=== PATIENT | female | born 1955 | race Caucasian/White ===

== ENCOUNTER 2016-09-14 14:33 | Inpatient (IN) | payer MEDICARE ==
[2016-09-14] MEDS ORDERED: HYDROcodone/APAP 7.5-325MG 1 EACH TAB PO PRN ×2 (15:55→17:43)
[2016-09-14 16:46] LABS: Glucose,Whole Blood 96 mg/dL (75-99)
--- NOTE | 2016-09-14 16:57 | XR ---
EXAMINATION TYPE: XR chest 2V DATE OF EXAM: 09/14/2016 4:23 PM COMPARISON: 07/14/2014 INDICATION: COPD rule out pneumonia TECHNIQUE: Single frontal view of the chest is obtained. FINDINGS: The heart size is normal. The pulmonary vasculature is normal. No suspicious infiltrates are evident. IMPRESSION: 1. No acute pulmonary process.
[2016-09-14] MEDS: INSULIN LISPRO (humaLOG) 300 UNIT/3 ML VIAL SQ SCH ×2 (16:59→21:33)
[2016-09-14] MEDS: SODIUM CHLORIDE 0.9% 1,000 ML IV SCH (17:02)
[2016-09-14] MEDS: HEPARIN SODIUM,PORCINE 5,000 UNIT/ML 1 ML VIAL SQ SCH ×2 (17:16→23:42)
[2016-09-14] MEDS: methylPREDNISolone SOD SUCCI 125 MG/2 ML VIAL IV SCH ×2 (17:16→23:41)
[2016-09-14] MEDS ORDERED: ALBUTEROL NEBULIZED 2.5 MG/3 ML INHALATION PRN (17:43)
[2016-09-14 18:29] LABS: Aty Lym Flag Moderate; CH 32.6; HCT 44.9 % (34.0-46.0); HDW 2.42; HGB 14.8 gm/dL (11.4-16.0); MCH 31.9 pg (25.0-35.0); MCHC 33.1 g/dL (31.0-37.0); MCV 96.6 fL (80.0-100.0); Mean Platelet Volume 7.3; RBC 4.65 m/uL (3.80-5.40); RDW 13.5 % (11.5-15.5); WBC 6.9 k/uL (3.8-10.6); WBC (Perox) 6.86
[2016-09-14] MEDS: ASPIRIN 81 MG CHEW PO SCH (18:39)
[2016-09-14 18:54] LABS: ALT 35 U/L (9-52); AST 33 U/L (14-36); Alkaline Phosphatase 108 U/L (38-126); Anion Gap 12 mmol/L; Blood Urea Nitrogen 15 mg/dL (7-17); Calcium 9.4 mg/dL (8.4-10.2); Carbon Dioxide 25 mmol/L (22-30); Chloride 101 mmol/L (98-107); Glucose 101 mg/dL (74-99); Non-African American GFR(MDRD) >60 (>60 ml/min/1.73 sqM); Potassium 3.6 mmol/L (3.5-5.1); Sodium 138 mmol/L (137-145); Total Bilirubin 0.7 mg/dL (0.2-1.3); Total Protein 7.5 g/dL (6.3-8.2)
[2016-09-14 19:16] LABS: Add Differential Manual Differential
[2016-09-14 19:18] LABS: Nucleated Red Blood Cells 0 /100 WBC (0-0); Total Cells Counted 100
[2016-09-14 19:20] LABS: Manual Review Performed
[2016-09-14 20:59] LABS: Hemoglobin A1C 6.2 % (4.2-6.1)
[2016-09-14] MEDS: IPRATROPIUM-ALBUTEROL 3 ML NEB INHALATION SCH ×2 (21:11→21:12)
[2016-09-14] MEDS: BUDESONIDE 0.5 MG/2 ML NEBU INHALATION SCH (21:12)
[2016-09-14 21:32] LABS: Glucose,Whole Blood 190 mg/dL (75-99)
[2016-09-14] MEDS: IBUPROFEN 800 MG TAB PO PRN (21:32)
[2016-09-14] MEDS: MONTELUKAST 10 MG TAB PO SCH (21:32)
[2016-09-14] MEDS: clonazePAM 1 MG TAB PO SCH (21:32)
[2016-09-14] MEDS: ATORVASTATIN 40 MG TAB PO SCH (21:32)
[2016-09-14] MEDS: FAMOTIDINE 20 MG TAB PO SCH (21:32)
--- NOTE | 2016-09-14 22:10 | CONS ---
DATE OF CONSULTATION: Gianna Manning is a 60-year-old female who comes in to [facility] with increasing shortness of breath with cough and wheezing for two weeks' duration. She was treated with antibiotics and steroids as an outpatient but failed to improve and started to get worse. She subsequently came in and was admitted for further evaluation. PAST MEDICAL HISTORY: Positive for coronary artery disease for which she has recently had two stents placed, history of obesity, history of hypertension, history of asthma, history of COPD, history of anxiety. FAMILY HISTORY: Positive for congestive heart failure in her mother, cancer. It is not clear what kind in her father. SOCIAL HISTORY: The patient used to smoke cigarettes. He quit smoking 8 years ago. She smoked about 1 to 2 packs of cigarettes per day. 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 She does not drink alcohol excessively. SHE IS ALLERGIC TO ACETAMINOPHEN AND HYDROCODONE BITARTRATE AND PROPOXYPHENE NAPSYLATE. REVIEW OF SYSTEMS: Positive for obesity. The patient has a history of loud snoring and wakes up gasping for air. She has not been checked for sleep apnea in the past. Medications prior to admission were: 1. Clonazepam. 2. Amlodipine. 3. Simvastatin. 4. K-Dur. 5. Omeprazole. 6. Singulair. 7. ( ). 8. Motrin. 9. Hydrocodone with acetaminophen. 10. Plavix. 11. Calcium carbonate with vitamin D3. 12. Atenolol with Chlorthalidone. 13. Aspirin. 14. Albuterol. 15. Ventolin. On physical examination, blood pressure is 142/86, respiratory rate 20, pulse of 72, temperature 97.7 degrees Fahrenheit. O2 sat on room air is 97%. HEENT reveals pupils that are equal. Chest reveals decreased breath sounds, prolonged expiration. There is wheeze on forced expiration. Cardiovascular system reveals an S1, S2. ABDOMEN: Soft. There is trace pedal edema. Labs reveal a white count of 6.9, hemoglobin 14.8, eosinophil count is 0.2 thousand. Sodium 138, potassium 3.6, chloride 101, bicarb 25, BUN 15, creatinine 0.93. Influenza A and B are negative. Chest x-ray shows no discrete infiltrate. IMPRESSION: 1. Asthma with chronic obstructive pulmonary disease with acute exacerbation. 2. Undiagnosed obstructive sleep apnea is likely. 3. Coronary artery disease. 4. Possible early cor pulmonale. At this point in time, from a pulmonary standpoint, keep her on IV steroids, bronchodilators, aerosolized steroids and Montelukast. GI and DVT prophylaxis. Continue on her cardiac medications. Increase her activity level. She would benefit from an outpatient sleep study. Depending on how she does, we shall make further changes to her care
[2016-09-15] MEDS: IPRATROPIUM-ALBUTEROL 3 ML NEB INHALATION SCH ×7 (03:06→23:37)
[2016-09-15] MEDS: SODIUM CHLORIDE 0.9% 1,000 ML IV SCH ×2 (05:18→17:43)
[2016-09-15] MEDS: methylPREDNISolone SOD SUCCI 125 MG/2 ML VIAL IV SCH (06:07)
[2016-09-15 07:11] LABS: Glucose,Whole Blood 254 mg/dL (75-99)
[2016-09-15] MEDS: BUDESONIDE 0.5 MG/2 ML NEBU INHALATION SCH ×2 (07:19→20:37)
[2016-09-15] MEDS: IBUPROFEN 800 MG TAB PO PRN ×2 (07:20→20:11)
[2016-09-15] MEDS: POTASSIUM CHLORIDE ER 10 MEQ TAB.ER.PRT PO SCH (07:46)
[2016-09-15] MEDS: FAMOTIDINE 20 MG TAB PO SCH (07:46)
[2016-09-15] MEDS: MONTELUKAST 10 MG TAB PO SCH ×2 (07:46→20:03)
[2016-09-15] MEDS: clonazePAM 1 MG TAB PO SCH ×3 (07:47→20:11)
[2016-09-15] MEDS: CHLORTHALIDONE 25 MG TAB PO SCH (07:47)
[2016-09-15] MEDS: INSULIN LISPRO (humaLOG) 300 UNIT/3 ML VIAL SQ SCH ×4 (07:47→21:55)
[2016-09-15] MEDS: ASPIRIN 81 MG CHEW PO SCH (07:47)
[2016-09-15] MEDS: amLODIPine 5 MG TAB PO SCH (07:47)
[2016-09-15] MEDS: HEPARIN SODIUM,PORCINE 5,000 UNIT/ML 1 ML VIAL SQ SCH ×2 (07:47→15:54)
[2016-09-15] MEDS: CLOPIDOGREL 75 MG TAB PO SCH (07:47)
[2016-09-15] MEDS: ATENOLOL 50 MG TAB PO SCH (07:47)
[2016-09-15] MEDS: PANTOPRAZOLE 40 MG TABLET PO SCH (07:47)
[2016-09-15 09:52] LABS: Basophils % (A) 0 %; CH 32.4; CHCM 33.4; Eosinophils % (A) 0 %; HCT 43.5 % (34.0-46.0); HDW 2.34; HGB 13.8 gm/dL (11.4-16.0); Luc # (Auto) 0.06; Luc % (Auto) 1; Lymphocytes # (A) 0.5 k/uL (1.0-4.8); Lymphocytes % (A) 5 %; MCH 31.1 pg (25.0-35.0); MCHC 31.8 g/dL (31.0-37.0); MCV 97.6 fL (80.0-100.0); Mean Platelet Volume 6.9; Monocytes # (A) 0.1 k/uL (0-1.0); Monocytes % (A) 1 %; Neutrophils # (A) 9.6 k/uL (1.3-7.7); Neutrophils % (A) 93 %; RBC 4.45 m/uL (3.80-5.40); RDW 13.4 % (11.5-15.5); WBC 10.3 k/uL (3.8-10.6); WBC (Perox) 10.85
[2016-09-15 10:18] LABS: ALT 27 U/L (9-52); AST 25 U/L (14-36); Alkaline Phosphatase 95 U/L (38-126); Anion Gap 18 mmol/L; Blood Urea Nitrogen 15 mg/dL (7-17); Calcium 9.3 mg/dL (8.4-10.2); Carbon Dioxide 19 mmol/L (22-30); Chloride 98 mmol/L (98-107); Glucose 298 mg/dL (74-99); Non-African American GFR(MDRD) >60 (>60 ml/min/1.73 sqM); Potassium 3.6 mmol/L (3.5-5.1); Sodium 135 mmol/L (137-145); Total Bilirubin 0.6 mg/dL (0.2-1.3); Total Protein 7.5 g/dL (6.3-8.2)
--- NOTE | 2016-09-15 11:21 | P.PN ---
Subjective Principal diagnosis: Acute exacerbation of COPD Patient seen and examined with her at bedside. The patient states she' s feeling a little bit better today. Although she notes she had a rough night. She states that she wheezes when she lays flat. She also has a lot of congestion that she can't cough up. She denies fevers and chills. Objective - Vital Signs Vital signs: Vital Signs Temp 97.1 F L 09/15/16 07:00 Pulse 88 09/15/16 07:30 Resp 18 09/15/16 07:00 BP 127/71 09/15/16 07:00 Pulse Ox 95 09/15/16 07:00 Intake & Output 09/14/16 09/15/16 09/15/16 18:59 06:59 18:59 Weight 79.7 kg Other: Voiding Method Toilet Toilet # Voids 1 1 - Exam Gen.: Patient is alert and oriented 3, no acute distress, morbidly obese Cardiovascular: Regular rate and rhythm, S1/S2 Lungs: Diminished breath sounds bilaterally Abdomen: Soft nontender nondistended positive bowel sounds Extremities: Trace edema - Labs CBC & Chem 7: 09/15/16 09:00 09/15/16 09:00 Labs: Abnormal Lab Results - Last 24 Hours (Table) 09/14/16 09/14/16 09/14/16 Range/Units 17:36 17:36 21:18 Neutrophils # (1.3-7.7) k/uL Lymphocytes # (1.0-4.8) k/uL Sodium (137-145) mmol/L Carbon Dioxide (22-30) mmol/L Glucose 101 H (74-99) mg/dL POC Glucose (mg/dL) 190 H (75-99) mg/dL Hemoglobin A1c 6.2 H (4.2-6.1) % 09/15/16 09/15/16 09/15/16 Range/Units 07:02 09:00 09:00 Neutrophils # 9.6 H (1.3-7.7) k/uL Lymphocytes # 0.5 L (1.0-4.8) k/uL Sodium 135 L (137-145) mmol/L Carbon Dioxide 19 L (22-30) mmol/L Glucose 298 H (74-99) mg/dL POC Glucose (mg/dL) 254 H (75-99) mg/dL Hemoglobin A1c (4.2-6.1) % Assessment and Plan Plan: Acute exacerbation of COPD and possible asthma, unknown type Acute on Chronic bronchitis Morbid obesity with likely underlying obstructive sleep apnea History of coronary artery disease Possible early cor pulmonale Mild hyponatremia Hyperglycemia Diabetes mellitus type 2 O2 to maintain saturation greater than equal to 88% Pulmicort Bronchodilators Singulair GI and DVT prophylaxis Steroid taper - aggressive taper due to patient request. Patient having side effects of anxiety and jittery feeling. Antibiotics: And doxycycline We will check IgE, HP panel Continued smoking cessation Will add Mucinex Recommend outpatient follow-up with PFT and PSG Incentive spirometry and pulmonary hygiene
[2016-09-15 11:46] LABS: Glucose,Whole Blood 359 mg/dL (75-99)
[2016-09-15 11:50] VITALS: BMI 35.4
--- NOTE | 2016-09-15 14:50 | P.PN ---
Subjective This is a 60-year-old female who was a direct admission from Dr. Torres's office on the september. Patient states she is being seen in the office because she felt short of breath. Patient states that she feels better breathing is less symptomatic. Patient states the steroids are causing her to feel overly anxious "I cannot tolerate how they make me feel" patient's asking that steroids be stopped. Patients being followed by pulmonology service recommendations noted appreciated and reviewed Objective - Vital Signs Vital signs: Vital Signs Temp 97.1 F L 09/15/16 07:00 Pulse 88 09/15/16 12:06 Resp 18 09/15/16 07:00 BP 127/71 09/15/16 07:00 Pulse Ox 95 09/15/16 07:00 Intake & Output 09/14/16 09/15/16 09/15/16 18:59 06:59 18:59 Intake Total 240 Balance 240 Weight 79.7 kg 79.7 kg Intake: Oral 240 Other: Voiding Method Toilet Toilet # Voids 1 1 3 - Exam Physical exam 60-year-old female sitting up in bed talkative states breathing feels improved Lungs posterior diminished at the bases. A few prolonged expiratory wheezing noted no cough noted Heart S1-S2 audible regular Abdomen soft nontender Extremities no edema - Labs CBC & Chem 7: 09/15/16 09:00 09/15/16 09:00 Labs: Abnormal Lab Results - Last 24 Hours (Table) 09/14/16 09/14/16 09/14/16 Range/Units 17:36 17:36 21:18 Neutrophils # (1.3-7.7) k/uL Lymphocytes # (1.0-4.8) k/uL Sodium (137-145) mmol/L Carbon Dioxide (22-30) mmol/L Glucose 101 H (74-99) mg/dL POC Glucose (mg/dL) 190 H (75-99) mg/dL Hemoglobin A1c 6.2 H (4.2-6.1) % 09/15/16 09/15/16 09/15/16 Range/Units 07:02 09:00 09:00 Neutrophils # 9.6 H (1.3-7.7) k/uL Lymphocytes # 0.5 L (1.0-4.8) k/uL Sodium 135 L (137-145) mmol/L Carbon Dioxide 19 L (22-30) mmol/L Glucose 298 H (74-99) mg/dL POC Glucose (mg/dL) 254 H (75-99) mg/dL Hemoglobin A1c (4.2-6.1) % 09/15/16 Range/Units 11:36 Neutrophils # (1.3-7.7) k/uL Lymphocytes # (1.0-4.8) k/uL Sodium (137-145) mmol/L Carbon Dioxide (22-30) mmol/L Glucose (74-99) mg/dL POC Glucose (mg/dL) 359 H (75-99) mg/dL Hemoglobin A1c (4.2-6.1) % Assessment and Plan Plan: Impression Present on admission shortness of breath due to an acute exacerbation of COPD with asthma likely unknown type Acute on chronic bronchitis Morbid obesity BMI 35 with likely on diagnosed obstructive sleep apnea Mild hyponatremia Type 2 diabetes him Globe an A1c 6 Hyperglycemic episodes suspect steroid-induced Possible early cor pulmonale Plan Continue recommendations by pulmonology service Address hyperglycemic episodes with sliding scale Continue respiratory treatments as ordered Resume home meds as appropriate Possible discharge in the next 24 hours The above dictated assessment and findings were discussed with dr torres Impression and the plan of care have been dictated as directed. Janelle Jones nurse practitioner acting as a scribe for dr torres.
[2016-09-15 17:55] LABS: Glucose,Whole Blood 331 mg/dL (75-99)
[2016-09-15] MEDS: DOXYCYCLINE 50 MG CAP PO SCH (19:59)
[2016-09-15] MEDS: guaiFENesin-DM 600/30MG 1 EACH TAB.ER.12H PO SCH (19:59)
[2016-09-15] MEDS: ATORVASTATIN 40 MG TAB PO SCH (20:00)
[2016-09-15 20:57] LABS: Glucose,Whole Blood 236 mg/dL (75-99)
[2016-09-15] MEDS ORDERED: methylPREDNISolone SOD SUCCI 40 MG/ML 1 ML VIAL IV SCH (21:00)
[2016-09-16] MEDS: HEPARIN SODIUM,PORCINE 5,000 UNIT/ML 1 ML VIAL SQ SCH ×3 (00:35→08:10)
[2016-09-16 00:54] VITALS: RESP 20
[2016-09-16] MEDS: IPRATROPIUM-ALBUTEROL 3 ML NEB INHALATION SCH ×2 (05:55→07:34)
[2016-09-16] MEDS: BUDESONIDE 0.5 MG/2 ML NEBU INHALATION SCH (07:34)
[2016-09-16 07:53] LABS: Glucose,Whole Blood 154 mg/dL (75-99)
[2016-09-16] MEDS: INSULIN LISPRO (humaLOG) 300 UNIT/3 ML VIAL SQ SCH (08:09)
[2016-09-16] MEDS: ASPIRIN 81 MG CHEW PO SCH (08:10)
[2016-09-16] MEDS: ATENOLOL 50 MG TAB PO SCH (08:10)
[2016-09-16] MEDS: amLODIPine 5 MG TAB PO SCH (08:10)
[2016-09-16] MEDS: PANTOPRAZOLE 40 MG TABLET PO SCH (08:10)
[2016-09-16] MEDS: CHLORTHALIDONE 25 MG TAB PO SCH (08:10)
[2016-09-16 08:11] VITALS: BP 129/70; PULSE 72; TEMP 97.2
[2016-09-16] MEDS: CLOPIDOGREL 75 MG TAB PO SCH (08:11)
[2016-09-16] MEDS: MONTELUKAST 10 MG TAB PO SCH (08:11)
[2016-09-16] MEDS: POTASSIUM CHLORIDE ER 10 MEQ TAB.ER.PRT PO SCH (08:11)
[2016-09-16] MEDS: DOXYCYCLINE 50 MG CAP PO SCH (08:11)
[2016-09-16] MEDS: guaiFENesin-DM 600/30MG 1 EACH TAB.ER.12H PO SCH (08:11)
[2016-09-16] MEDS: clonazePAM 1 MG TAB PO SCH (08:16)
[2016-09-16] MEDS ORDERED: FAMOTIDINE 20 MG TAB PO SCH (09:00)
[2016-09-16] MEDS ORDERED: predniSONE 20 MG TAB PO SCH (09:00)
[2016-09-16] MEDS: NON-FORMULARY DRUG (Linaclotide [Linzess] 145 MCG) PO SCH ×2 (09:51→09:57)
--- NOTE | 2016-09-16 12:16 | PN ---
DATE OF SERVICE: 09/16/2016 HISTORY OF PRESENT ILLNESS: The patient is a 60-year-old female who came in with increased difficulty with breathing and coughing that had been going on for a few weeks. She failed outpatient therapy with antibiotics and steroids and subsequently was admitted with acute exacerbation of asthma with COPD. On examination, she is also felt to possibly have problems with obstructive sleep apnea. Her states that she does snore. She feels tired frequently. Her neck is short and thick and she does have a Mallampati score of 3 to 4. She also has a significant history of coronary artery disease with possible early cor pulmonale. She states that she did quit smoking 8 years ago, which she is quite proud of. She is doing well today. Plans are for her to be discharged. She has had no nausea, vomiting, diarrhea, or chest pain or productive cough at this time. She still has a few wheezes with prolonged expiration. It is recommended that she have sleep study on an outpatient basis and she would benefit from having PFT in the office. This has been discussed with the patient. She is in agreeance and her care was discussed in detail. On physical examination, vital signs show temperature of 97.2, heart rate 80, respiratory rate 20, blood pressure is 129/70, oxygen saturation is 98%. Labs show a glucose of 154. Chest x-ray on admission showed no acute pulmonary process. GENERAL: She is a 60-year-old female who appears relatively comfortable at this time in no acute distress. HEENT: Pupils are reactive. Mucous membranes are moist. NECK: Short, supple, thick. She has a Mallampati 3 to 4. Lung sounds diminished. Few wheezes with prolonged expiration. CARDIOVASCULAR: S1 and S2 is heard, regular. ABDOMEN: Soft. Bowel sounds are heard. EXTREMITIES: With trace edema. NEUROLOGIC: She is awake, alert. IMPRESSION: 1. Acute exacerbation of chronic obstructive pulmonary disease with questionable asthma. 2. Acute on chronic bronchitis. 3. Possible obstructive sleep apnea with obesity hypoventilation syndrome. 4. Coronary artery disease. 5. Possible early cor pulmonale. 6. Hyperglycemia with diabetes mellitus type 2. 7. History of snoring. PLAN: The patient to continue with tapering steroids and nebulizer treatments as ordered. She needs to follow up with Dr. Sullivan in the office next week. She would benefit from PFT and a sleep study. She is stable. Continue to increase activity as tolerated. Will continue to follow patient with you and continue with supportive care.
[2016-09-18 12:41] LABS: Alternaria alternata IgE <0.35 kU/L (<0.35); Asperg. fumagatus IgE <0.35 kU/L (<0.35); Asperg. fumagatus IgE Class CLASS 0; Cat Epith & Dander IgE <0.35 kU/L (<0.35); Cat Epith & Dander IgE Class CLASS 0; Clad herbarum IgE <0.35 kU/L (<0.35); Clad herbarum IgE Class CLASS 0; Com. Pigweed IgE <0.35 kU/L (<0.35); Com. Pigweed IgE Class CLASS 0; Common Ragweed IgE Class CLASS 0; Cow's Milk IgE Class CLASS 0; Dermato. farinae IgE <0.35 kU/L (<0.35); Dermato. farinae IgE Class CLASS 0; House Dust (Greer) IgE <0.35 kU/L (<0.35); House Dust (Greer) IgE Class CLASS 0; Maple (Box Elder) IgE <0.35 kU/L (<0.35); Maple (Box Elder) IgE Class CLASS 0; Penicillium notatum IgE Class CLASS 0; Timothy Grass IgE <0.35 kU/L (<0.35); Timothy Grass IgE Class CLASS 0
[2016-09-20 11:18] LABS: Mis test requested (Blood) HYPERSEN PNEUMONITIS
--- NOTE | 2016-10-09 18:50 | DS ---
DATE OF ADMISSION: 09/14/2016 DATE OF DISCHARGE: 09/16/2016 DISCHARGE MEDICATIONS: 1. Clonazepam 1 mg t.i.d. 2. Simvastatin 80 mg daily. 3. Omeprazole 40 mg daily. 4. Aspirin 81 daily. 5. Singulair 10 mg daily. 6. Atenolol (Tenoretic) 50 one daily. 7. Albuterol updrafts q.6. 8. Linzess 145 daily. 9. Ventolin HFA 1 puff daily. 10. Calcium carbonate daily. 11. Norvasc 5 mg daily. 12. Motrin 800 mg q.6 hours. 13. Plavix 75 mg daily. 14. Potassium chloride 10 mEq daily. 15. Hydrocodone/APAP 7.5/325 every 4 hours p.r.n. 16. DuoNeb updrafts q.i.d. CONDITION: Stable. PROGNOSIS: Guarded. Ambulate as tolerated. HOSPITAL COURSE OF EVENTS: [id number]-old white female admitted to the hospital for shortness of breath, cough, congestion, wheezing for 2 weeks' duration, treated with IV steroids and IV antibiotics and updraft treatments. Patient slowly improved with pulmonary consult. As her ( ) improved, she was seen by computer systems security administrator, who helped with the care of the patient. Patient was stabilized and sent home in stable condition.
== END 2016-09-16 11:22 | disposition home or self-care (01) | DRG 191 ==
LOC: 4MS4W 14:46
PROVIDERS: ADMIT Family Medicine; ATTEND Family Medicine
DX: J44.1 Chronic obstructive pulmonary disease with (acute) exacerbation (principal); E87.1 Hypo-osmolality and hyponatremia; I27.81 Cor pulmonale (chronic); E11.65 Type 2 diabetes mellitus with hyperglycemia; J45.901 Unspecified asthma with (acute) exacerbation; E66.2 Morbid (severe) obesity with alveolar hypoventilation; I10 Essential (primary) hypertension; I25.10 Atherosclerotic heart disease of native coronary artery without angina pectoris; F41.9 Anxiety disorder, unspecified; T38.0X5A Adverse effect of glucocorticoids and synthetic analogues, initial encounter; R06.83 Snoring; J20.9 Acute bronchitis, unspecified; J44.0 Chronic obstructive pulmonary disease with (acute) lower respiratory infection; Z79.02 Long term (current) use of antithrombotics/antiplatelets; Z79.82 Long term (current) use of aspirin; Z88.6 Allergy status to analgesic agent; Z87.891 Personal history of nicotine dependence; Z68.35 Body mass index [BMI] 35.0-35.9, adult; Z82.49 Family history of ischemic heart disease and other diseases of the circulatory system; Z80.9 Family history of malignant neoplasm, unspecified; Z71.3 Dietary counseling and surveillance; Z95.5 Presence of coronary angioplasty implant and graft; Z79.1 Long term (current) use of non-steroidal anti-inflammatories (NSAID); Z79.891 Long term (current) use of opiate analgesic; Z79.899 Other long term (current) drug therapy
CPT/HCPCS: 71020; 80053; 82785; 83036; 85025; 85379; 86001; 86003; 86606; 86609; 86710; 87502; 94640; 94760

== ENCOUNTER → 2016-12-18 | Outpatient (CLI) | payer MEDICARE ==
[~2016-12-18] MED LIST: REGADENOSON 0.4 MG/5 ML SYRINGE IV ONE
--- NOTE | 2016-12-18 11:42 | NM ---
EXAMINATION TYPE: NM stress lexiscan cardiolite DATE OF EXAM: 12/18/2016 COMPARISON: Chest x-ray 09/14/2016 HISTORY: Abnormal EKG, R 94.31 TECHNIQUE: After the intravenous administration of 10.48 mCi Tc 99m Sestamibi - Cardiolite resting S PECT images acquired 45 minutes post injection. The patient received 0.4mg Lexiscan, 26.8 mCi Tc 99m Sestamibi - Stress images obtained [address] injection FINDINGS: Review of stress and rest SPECT images demonstrates decreased uptake along the anterolateral wall the left ventricle on stress and rest images. Some mild decreased uptake along noted along the anterolat eral wall of the left ventricle on stress as compared to rest images. Gated analysis shows normal wal l motion with an estimated left ventricular ejection fraction of 63 %. IMPRESSION: Findings suggest possible prior infarct along the anterolateral left ventricle, I suspect some pharma cologically induced left ventricular myocardial ischemia as described. A Yellow message has been communicated to Gregorio Garber MD via the [employer] Critical Result system on 12/18/2016 11:40 AM, Message ID [id number].
--- NOTE | 2016-12-18 16:20 | EST ---
DATE OF SERVICE: 12/18/2016 AGE: 61Y SEX: F HT: 4'11" WT: 176 lbs. Protocol Asad: Other: Lexiscan Cardiolite Stage: Dur. of Exercise: *Heart Rate Blood Pressure *Rest: 65 Rest: 144/71 * *Max. Achieved: 83 Maximum BP: 132/86 85% PMHR: 134 100% PMHR: 158 *METS: INDICATIONS: Abnormal EKG, shortness of breath. MEDICATIONS: Clonazepam, atenolol, amlodipine, potassium, Plavix, aspirin, simvastatin, [place], Motrin. Patient was given Lexiscan injection over a period of 15 seconds. Peak heart rate of 83 was achieved. Maximum blood pressure 132/86 mmHg was noted. Resting EKG shows normal sinus rhythm with normal DE interval and QRS duration and normal ST-T waves. No ST-segment depression suggestive of ischemia is noted. The results of the nuclear study will follow.
== END | disposition home or self-care (01) ==
LOC: RADNMMAIN 07:50
PROVIDERS: ATTEND Family Medicine
DX: R94.31 Abnormal electrocardiogram [ECG] [EKG] (principal)
CPT/HCPCS: 93017; 78452; A9500; J2785

== ENCOUNTER → 2017-01-10 | Outpatient (CLI) | payer MEDICARE ==
[2017-01-10 15:52] LABS: Basophils % (A) 0 %; CH 32.1; CHCM 35.1; Eosinophils # (A) 0.1 k/uL (0-0.7); Eosinophils % (A) 2 %; HCT 43.4 % (34.0-46.0); HDW 2.58; HGB 15.4 gm/dL (11.4-16.0); Luc # (Auto) 0.26; Luc % (Auto) 3; Lymphocytes # (A) 0.9 k/uL (1.0-4.8); Lymphocytes % (A) 10 %; MCH 32.5 pg (25.0-35.0); MCHC 35.4 g/dL (31.0-37.0); MCV 91.8 fL (80.0-100.0); Mean Platelet Volume 6.6; Monocytes # (A) 0.6 k/uL (0-1.0); Monocytes % (A) 6 %; Neutrophils # (A) 7.7 k/uL (1.3-7.7); Neutrophils % (A) 80 %; RBC 4.73 m/uL (3.80-5.40); RDW 13.9 % (11.5-15.5); WBC 9.6 k/uL (3.8-10.6); WBC (Perox) 10.33
[2017-01-10 16:13] LABS: Anion Gap 14 mmol/L; Blood Urea Nitrogen 13 mg/dL (7-17); Carbon Dioxide 28 mmol/L (22-30); Chloride 99 mmol/L (98-107); Non-African American GFR(MDRD) >60 (>60 ml/min/1.73 sqM); Potassium 3.3 mmol/L (3.5-5.1); Sodium 141 mmol/L (137-145)
== END | disposition home or self-care (01) ==
LOC: LABPAT 15:30
PROVIDERS: ATTEND Internal Medicine Cardiovascular Disease
DX: Z01.812 Encounter for preprocedural laboratory examination (principal); E78.2 Mixed hyperlipidemia; I25.10 Atherosclerotic heart disease of native coronary artery without angina pectoris
CPT/HCPCS: 36415; 80051; 82565; 84520; 85025

== ENCOUNTER 2017-01-11 09:17 | Day surgery (SDC) | payer MEDICARE ==
[2017-01-10 10:16] VITALS: BMI 31.5
[~2017-01-11 09:17] MED LIST changes: +ALPRAZolam 0.25 MG TAB PO PRN; +ALPRAZolam 0.5 MG TAB PO PRN; +ASPIRIN 325 MG TAB PO STA; +ATORVASTATIN 80 MG TAB PO STA; +NITROGLYCERIN SL TABS 0.4 MG TAB SUBLINGUAL PRN; -REGADENOSON 0.4 MG/5 ML SYRINGE IV ONE; +SODIUM CHLORIDE 0.9% 1,000 ML in EMPTY BAG 1 BAG IV ONE
[2017-01-11 09:39] VITALS: RESP 16
[2017-01-11] MEDS ORDERED: SODIUM CHLORIDE 0.9% 1,000 ML IV ONE (09:45)
[2017-01-11 09:53] LABS: Basophils % (A) 1 %; CH 32.6; CHCM 35.5; Eosinophils # (A) 0.2 k/uL (0-0.7); Eosinophils % (A) 3 %; HCT 42.8 % (34.0-46.0); HDW 2.59; HGB 14.8 gm/dL (11.4-16.0); Luc # (Auto) 0.18; Luc % (Auto) 2; Lymphocytes % (A) 12 %; MCH 31.9 pg (25.0-35.0); MCHC 34.6 g/dL (31.0-37.0); MCV 92.2 fL (80.0-100.0); Mean Platelet Volume 6.5; Monocytes # (A) 0.5 k/uL (0-1.0); Monocytes % (A) 6 %; Neutrophils # (A) 6.4 k/uL (1.3-7.7); Neutrophils % (A) 77 %; RBC 4.63 m/uL (3.80-5.40); RDW 14.3 % (11.5-15.5); WBC 8.3 k/uL (3.8-10.6); WBC (Perox) 7.65
[2017-01-11 10:02] LABS: Anion Gap 11 mmol/L; Blood Urea Nitrogen 15 mg/dL (7-17); Calcium 9.1 mg/dL (8.4-10.2); Carbon Dioxide 24 mmol/L (22-30); Chloride 103 mmol/L (98-107); Glucose 127 mg/dL (74-99); Non-African American GFR(MDRD) >60 (>60 ml/min/1.73 sqM); Potassium 3.8 mmol/L (3.5-5.1); Sodium 138 mmol/L (137-145)
[2017-01-11] MEDS: MIDAZOLAM 2 MG/2 ML VIAL IV ONE ×2 (10:26→10:31)
[2017-01-11] MEDS ORDERED: fentaNYL (PF) 50 MCG/ML 2 ML AMP IV ONE (10:26)
[2017-01-11] MEDS ORDERED: LIDOCAINE 2% INJ 20 MG/ML SQ ONE (10:29)
[2017-01-11] MEDS ORDERED: IOHEXOL 350 MG/ML 125ML BOTTLE INJ ONE (10:47)
[2017-01-11] MEDS ORDERED: RX INFO: IV CONTRAST WAS GIVEN 1 EACH MISC MISCELLANE PRN (10:58)
[2017-01-11] MEDS ORDERED: SODIUM CHLORIDE 0.9% 1,000 ML IV SCH (11:00)
[2017-01-11 11:14] VITALS: TEMP 97.8
--- NOTE | 2017-01-11 11:56 | CC ---
CARDIAC CATHETERIZATION INDICATION: Shortness of breath, abnormal stress test. PROCEDURE NOTE: After obtaining informed consent, left heart catheterization and coronary angiogram was performed via the right femoral artery using standard Sherri catheters. Patient tolerated the procedure well without any obvious immediate complications. A long exchange length wire was used to exchange catheters in the aortic root. Total sedation time was 20 minutes. A femoral angiogram was performed and ( ) was made for manual hemostasis because of the relatively high entry point into the common femoral artery. FINDINGS: 1. HEMODYNAMICS: Left ventricular end-diastolic pressure is 16 mm. There is no significant gradient across the aortic valve. 2. LEFT VENTRICULOGRAM: Left ventriculogram is not performed. 3. ANGIOGRAPHIC DATA: LEFT MAIN CORONARY ARTERY: Left main coronary artery appears heavily calcified but is free of significant stenosis. Divides into left anterior descending coronary artery and circumflex coronary artery. Both the LAD the circumflex coronary artery are relatively small caliber vessels that are calcified. There is mild nonobstructive disease involving circumflex coronary artery. LAD shows a mild to moderate atherosclerotic plaque in its midportion without focal hemodynamically significant lesions. RIGHT CORONARY ARTERY is a large dominant vessel with a long area of mild stenosis in its midportion. PDA which was previously stented. The stent appears patent. CONCLUSION: 1. Patent stent within the PDA. 2. Mild to moderate nonobstructive coronary artery disease involving right coronary artery, mid-LAD and proximal circumflex coronary artery. PLAN: I reviewed angiographic data with the patient and told her that her symptoms are probably noncardiac in origin and her management is going to be in the form of risk factor modification and optimal medical therapy. Her stress test is probably a false positive stress test. MAINOR
[2017-01-11 13:48] VITALS: PULSE 60
[2017-01-11] MEDS ORDERED: ACETAMINOPHEN TAB 325 MG TAB PO PRN (13:48)
[2017-01-11 18:32] VITALS: BP 128/70
== END 2017-01-11 18:38 | disposition home or self-care (01) ==
LOC: CATHCVL 09:17
PROVIDERS: ATTEND Internal Medicine Cardiovascular Disease
DX: I25.10 Atherosclerotic heart disease of native coronary artery without angina pectoris (principal); I25.84 Coronary atherosclerosis due to calcified coronary lesion; I10 Essential (primary) hypertension; Z87.891 Personal history of nicotine dependence; Z82.49 Family history of ischemic heart disease and other diseases of the circulatory system; E78.2 Mixed hyperlipidemia; Z79.02 Long term (current) use of antithrombotics/antiplatelets; Z79.82 Long term (current) use of aspirin; Z79.51 Long term (current) use of inhaled steroids; Z79.899 Other long term (current) drug therapy
CPT/HCPCS: 99152; 99153; 93458; 80048; 85025; C1894; C1769; J2001; J2250; J3010; Q9967

== ENCOUNTER → 2017-09-19 | Outpatient (CLI) | payer MEDICARE ==
--- NOTE | 2017-09-19 15:50 | XR ---
EXAMINATION TYPE: XR knee complete LT DATE OF EXAM: 09/19/2017 COMPARISON: NONE HISTORY: Pain TECHNIQUE: 3 views are submitted. FINDINGS: There is moderate narrowing of the medial compartment of the knee joint. No erosive changes. Mild bandar rowing of the patellofemoral joint with small amount of fluid in the suprapatellar bursa. No acute fracture or dislocation. IMPRESSION: 1. Moderate osteoarthritis with a small amount of fluid in the suprapatellar bursa. Correlate with MR I as clinically warranted.
== END | disposition home or self-care (01) ==
LOC: RADXRMAIN 14:52
PROVIDERS: ATTEND Family Medicine
DX: M17.12 Unilateral primary osteoarthritis, left knee (principal)

== ENCOUNTER → 2017-12-12 | Outpatient (CLI) | payer MEDICARE ==
[2017-12-12 15:09] LABS: Basophils % (A) 1 %; Eosinophils # (A) 0.1 k/uL (0-0.7); Eosinophils % (A) 1 %; HCT 46.1 % (34.0-46.0); HGB 15.7 gm/dL (11.4-16.0); Lymphocytes # (A) 0.9 k/uL (1.0-4.8); Lymphocytes % (A) 10 %; MCH 32.2 pg (25.0-35.0); MCHC 34.1 g/dL (31.0-37.0); MCV 94.2 fL (80.0-100.0); Mean Platelet Volume 6.3; Monocytes # (A) 0.5 k/uL (0-1.0); Monocytes % (A) 6 %; Neutrophils # (A) 7.3 k/uL (1.3-7.7); Neutrophils % (A) 81 %; Platelet Count 287 k/uL (150-450); RBC 4.89 m/uL (3.80-5.40); RDW 13.6 % (11.5-15.5)
== END | disposition home or self-care (01) ==
LOC: LABPAT 14:11
PROVIDERS: ATTEND Surgery
DX: Z01.818 Encounter for other preprocedural examination (principal); Z01.812 Encounter for preprocedural laboratory examination; K43.2 Incisional hernia without obstruction or gangrene; D64.9 Anemia, unspecified; F17.200 Nicotine dependence, unspecified, uncomplicated; I10 Essential (primary) hypertension
CPT/HCPCS: 36415; 84132; 85025; 86850; 86900; 86901; 93005

== ENCOUNTER 2017-12-18 08:08 | Day surgery (SDC) | payer MEDICARE ==
[2017-12-12 11:38] VITALS: BMI 35.3
[~2017-12-18 08:08] MED LIST changes: -ALPRAZolam 0.25 MG TAB PO PRN; -ALPRAZolam 0.5 MG TAB PO PRN; -ASPIRIN 325 MG TAB PO STA; -ATORVASTATIN 80 MG TAB PO STA; +HEPARIN SODIUM,PORCINE 5,000 UNIT/ML 1 ML VIAL SQ ONE; +HYDROmorphone 0.5 MG/0.5 ML SYRINGE IVP PRN; -NITROGLYCERIN SL TABS 0.4 MG TAB SUBLINGUAL PRN; +ONDANSETRON 4 MG/2 ML VIAL IVP PRN; -SODIUM CHLORIDE 0.9% 1,000 ML in EMPTY BAG 1 BAG IV ONE; +ceFAZolin IN SWFI 2 GM/20 ML SYRINGE IVP ONE; +fentaNYL (PF) 50 MCG/ML 2 ML AMP IV PRN
[2017-12-18] MEDS: LACTATED RINGERS 1,000 ML IV SCH ×2 (09:19→09:40)
[2017-12-18] MEDS ORDERED: LIDOCAINE 1% 20 ML VIAL (10MG/ML) FOR IV START INTRADERMA ONE (09:20)
[2017-12-18] MEDS ORDERED: ONDANSETRON 4 MG/2 ML VIAL IVP ONE (09:21)
[2017-12-18] MEDS ORDERED: DEXAMETHASONE SOD PHOSPHATE 10 MG/ML 1 ML VIAL IV ONE (09:21)
[2017-12-18 09:50] LABS: Glucose,Whole Blood 115 mg/dL (75-99)
[2017-12-18] MEDS ORDERED: MIDAZOLAM 2 MG/2 ML VIAL IVP ONE (09:57)
--- NOTE | 2017-12-18 11:37 | P.GSHP ---
History of Present Illness H&P Date: 12/18/17 Chief Complaint: Incisional hernia 's is a 62-year-old female who has developed an incisional hernia. Patient presents today for laparoscopic robotic-assisted repair. Past Medical History Past Medical History: COPD, Deep Vein Thrombosis (DVT), Fibromyalgia, GERD/ Reflux, Hyperlipidemia, Hypertension, Osteoarthritis (OA), Skin Disorder Additional Past Medical History / Comment(s): DIVERTICULITIS, HX KIDNEY STONES & Pneumonia, ROSACEA, DVT RLE 2007, History of Any Multi-Drug Resistant Organisms: None Reported Past Surgical History: Appendectomy, Bowel Resection, Heart Catheterization With Stent, Tubal Ligation Additional Past Surgical History / Comment(s): COLONOSCOPY, PARTIAL LT LOBECTOMY , D & C, 07-17-14 BOWEL RESECTION, [place] [facility] [place] Anesthesia/Blood Transfusion Reactions: No Reported Reaction Date of Last Stent Pl[place]:: [place] [facility] [place]oking Status: Former smoker - Past Family History Mother Family Medical History: Congestive Heart Failure (CHF) Father Family Medical History: Cancer Additional Family Medical History / Comment(s): TYPE OF CANCER NOT KNOWN Medications and Allergies Home Medications Medication Instructions Recorded Confirmed Type Aspirin 81 mg PO DAILY 02/20/14 12/18/17 History Atenolol/Chlorthalidone [Tenoretic 1 tab PO DAILY 02/20/14 12/12/17 History 50 Tablet] Montelukast [Singulair] 10 mg PO DAILY 02/20/14 12/18/17 History Omeprazole 40 mg PO DAILY 02/20/14 12/12/17 History clonazePAM [Clonazepam] 1 mg PO TID 02/20/14 12/12/17 History Calcium Carbonate/Vitamin D3 1 tab PO DAILY 07/14/14 12/18/17 History [Calcium 600-Vit D3 400 Tablet] Linaclotide [Linzess] 145 mcg PO DAILY PRN 07/14/14 12/18/17 History Clopidogrel [Plavix] 75 mg PO DAILY 09/14/16 12/18/17 History HYDROcodone/APAP 7.5-325MG [[place] 1 tab PO Q4H PRN 09/14/16 12/18/17 History 7.5-325] Potassium Chloride [K-Tab ER] 10 meq PO DAILY 09/14/16 12/18/17 History amLODIPine [Norvasc] 5 mg PO DAILY 09/14/16 12/18/17 History Ipratropium-Albuterol Nebulize 3 ml INHALATION QID PRN 01/10/17 12/18/17 History [Duoneb 0.5 mg-3 mg/3 ml Soln] Rosuvastatin Calcium [Crestor] 40 mg PO DAILY 01/10/17 12/18/17 History Tiotropium Br/Olodaterol HCl 1 spray INHALATION DAILY 01/10/17 12/18/17 History [Stiolto Respimat Inhal [place]] Meloxicam [Mobic] 7.5 mg PO DAILY 12/12/17 12/18/17 History metFORMIN HCL [Glucophage] 500 mg PO DAILY 12/12/17 12/18/17 History Allergies Allergy/AdvReac Type Severity Reaction Status Date / Time acetaminophen AdvReac Nausea & Verified 12/12/17 11:17 [From Darvocet-N 100] Vomiting hydrocodone bitartrate AdvReac Nausea & Verified 12/12/17 11:17 [From Vicodin] Vomiting propoxyphene napsylate AdvReac Nausea & Verified 12/12/17 11:17 [From Darvocet-N 100] Vomiting Surgical - Exam Vital Signs Temp Pulse Resp BP Pulse Ox 98.3 F 64 18 169/76 95 12/18/17 09:06 12/18/17 09:06 12/18/17 09:06 12/18/17 09:06 12/18/17 09:06 - General well developed, well nourished, no distress - Eyes PERRL - ENT normal pinna - Neck no masses - Respiratory normal expansion - Cardiovascular Rhythm: regular - Abdomen 5 cm incisional hernia located above the umbilicus Abdomen: soft, non tender Results - Labs Abnormal Lab Results - Last 24 Hours (Table) 12/18/17 Range/Units 09:34 POC Glucose (mg/dL) 115 H (75-99) mg/dL Assessment and Plan Assessment: Incisional hernia. We'll perform laparoscopic robotic-assisted repair.
[2017-12-18] MEDS ORDERED: MIDAZOLAM 2 MG/2 ML VIAL ONE (11:59)
[2017-12-18] MEDS ORDERED: SUCCINYLCHOLINE CHLORIDE 100 MG/5 ML SYR IV ONE (11:59)
[2017-12-18] MEDS ORDERED: KETOROLAC 30 MG/ML 1 ML VIAL ONE (11:59)
[2017-12-18] MEDS ORDERED: fentaNYL (PF) 50 MCG/ML 2 ML AMP ONE (11:59)
[2017-12-18] MEDS ORDERED: GLYCOPYRROLATE 0.2 MG/ML 2 ML VIAL ONE (11:59)
[2017-12-18] MEDS ORDERED: ROCURONIUM BROMIDE 10 MG/ML 10 ML VIAL IV ONE (11:59)
[2017-12-18] MEDS ORDERED: ePHEDrine SULFATE/0.9% NACL/PF 50 MG/5 ML SYRINGE IV ONE (11:59)
[2017-12-18] MEDS ORDERED: LIDOCAINE 1% INJ 10MG/ML (20 ML MDV) ONE (11:59)
[2017-12-18] MEDS ORDERED: PROPOFOL 10 MG/ML 20 ML VIAL IV ONE (11:59)
[2017-12-18] MEDS ORDERED: NEOSTIGMINE 1 MG/ML 10 ML VIAL ONE (11:59)
[2017-12-18] MEDS ORDERED: HYDROmorphone (PF) 1 MG/ML ONE (11:59)
[2017-12-18] MEDS ORDERED: LIDOCAINE 1% INJ 10MG/ML (20 ML MDV) SQ ONE (12:37)
--- NOTE | 2017-12-18 13:06 | P.OP ---
Date of Procedure: 12/18/17 Preoperative Diagnosis: Incisional hernia Postoperative Diagnosis: Incisional hernia Adhesions Procedure(s) Performed: Laparoscopic robotic-assisted repair of incisional hernia Anesthesia: RADU Surgeon: Hermes Villarreal Estimated Blood Loss (ml): 5 Pathology: none sent Condition: stable Disposition: PACU Description of Procedure: The patient was placed on the operating table in the supine position. He received general anesthesia. His abdomen was prepped and draped usual fashion. Using a 5 mm optical trocar under direct visualization the peritoneal cavity was entered in the left upper quadrant. The abdomen was then insufflated. The laparoscope was placed back into the perineal cavity. Next a 8 mm robotic trocar was placed in the left lower quadrant and a 12 mm robotic trocar was placed in the left lateral position. The original 5 mm trocar was exchanged for a 8 mm robotic trocar. The patient's placed in the left side up position. And the patient was docked to the robot. The incisional hernia was visualized. The adhesions within the hernia were lysed using the cautery. Using hook cautery the peritoneum over the incisional hernia was excised. The fascial opening was repaired using 0V LOC suture. Next a piece of 11 cm round ventral light ST mesh was placed into the. Cavity and secured with 2 OV lock suture. The patient was undocked the robot. The needles were retrieved. The fascia of the 12 mm trocar site was closed with 0 Ethibond suture. Skin was closed interrupted 3-0 Monocryl suture. Dermabond dressings was applied. Patient tolerated procedure well and was sent to recovery room stable condition.
[2017-12-18] MEDS: HYDROmorphone 1 MG/ML 1 ML SYRINGE IVP ONE ×4 (13:30→13:57)
[2017-12-18 13:35] VITALS: TEMP 972
[2017-12-18 13:37] VITALS: RESP 16
[2017-12-18 14:07] LABS: Glucose,Whole Blood 138 mg/dL (75-99)
[2017-12-18] MEDS: fentaNYL (PF) 50 MCG/ML 2 ML AMP IVP ONE ×2 (14:08→14:16)
[2017-12-18] MEDS ORDERED: IPRATROPIUM-ALBUTEROL 3 ML NEB INHALATION STA (14:53)
[2017-12-18] MEDS ORDERED: Acetaminophen-Codeine 300-30mg TAB PO ONE (15:00)
[2017-12-18 15:03] LABS: Glucose,Whole Blood 149 mg/dL (75-99)
[2017-12-18 16:35] VITALS: BP 130/65; PULSE 75
== END 2017-12-18 17:06 | disposition home or self-care (01) ==
LOC: OR 08:08
PROVIDERS: ATTEND Surgery
DX: K43.2 Incisional hernia without obstruction or gangrene (principal); M19.90 Unspecified osteoarthritis, unspecified site; M79.7 Fibromyalgia; K21.9 Gastro-esophageal reflux disease without esophagitis; J44.9 Chronic obstructive pulmonary disease, unspecified; I10 Essential (primary) hypertension; E78.5 Hyperlipidemia, unspecified; K66.0 Peritoneal adhesions (postprocedural) (postinfection); I25.10 Atherosclerotic heart disease of native coronary artery without angina pectoris; E11.9 Type 2 diabetes mellitus without complications; Z88.5 Allergy status to narcotic agent; Z87.01 Personal history of pneumonia (recurrent); Z95.5 Presence of coronary angioplasty implant and graft; Z87.891 Personal history of nicotine dependence; Z87.442 Personal history of urinary calculi; Z86.718 Personal history of other venous thrombosis and embolism; Z79.82 Long term (current) use of aspirin; Z82.49 Family history of ischemic heart disease and other diseases of the circulatory system; Z79.02 Long term (current) use of antithrombotics/antiplatelets; Z79.1 Long term (current) use of non-steroidal anti-inflammatories (NSAID); Z79.84 Long term (current) use of oral hypoglycemic drugs; Z79.891 Long term (current) use of opiate analgesic
CPT/HCPCS: 49654; 94640; C1781; J2250; J1644; J1100; J2710; J2405; J2001; J3010; J1885; J1170; J0330; J2704; J0690; 86850; 86900; 86901

== ENCOUNTER 2017-12-21 10:24 | Observation (INO) | payer MEDICARE ==
[2017-12-21] MEDS ORDERED: MORPHINE SULFATE 2 MG/ML SYRINGE IV STA (11:05)
--- NOTE | 2017-12-21 11:09 | ED ---
General Adult HPI - General Chief complaint: Recheck/Abnormal Lab/Rx Stated complaint: Multiple Symptoms/ Post op pain Time Seen by Provider: 12/21/17 10:51 Source: patient, family, RN notes reviewed Mode of arrival: wheelchair Limitations: no limitations - History of Present Illness Initial comments: Patient is a pleasant 62-year-old female presenting to the emergency department with concerns for problems since her abdominal hernia surgery. Surgery was 3 days ago. Patient states since that time she has not been able to hear well out of her right ear. Patient does have some hearing however does extremely muffled. Patient also has been somewhat more short of breath. Patient has been taking her breathing treatment at home and is not really short of breath at this time. Patient did have a mild ache in her chest last night that lasted for a few minutes and is now resolved. Patient has been having abdominal discomfort. Patient was given Tylenol threes however that is not helping with her discomfort. Patient states abdominal discomfort is not worse just more persistent. Patient has not been sleeping well secondary to this. Patient does admit to feeling anxious. - Related Data Home Medications Medication Instructions Recorded Confirmed Aspirin 81 mg PO DAILY 02/20/14 12/21/17 Atenolol/Chlorthalidone [Tenoretic 1 tab PO DAILY 02/20/14 12/21/17 50 Tablet] Montelukast [Singulair] 10 mg PO DAILY 02/20/14 12/21/17 Omeprazole 40 mg PO DAILY 02/20/14 12/21/17 clonazePAM [Clonazepam] 1 mg PO TID 02/20/14 12/21/17 Calcium Carbonate/Vitamin D3 1 tab PO DAILY 07/14/14 12/21/17 [Calcium 600-Vit D3 400 Tablet] Linaclotide [Linzess] 145 mcg PO DAILY PRN 07/14/14 12/21/17 Clopidogrel [Plavix] 75 mg PO DAILY 09/14/16 12/21/17 HYDROcodone/APAP 7.5-325MG [[place] 1 tab PO Q4H PRN 09/14/16 12/21/17 7.5-325] Potassium Chloride [K-Tab ER] 10 meq PO DAILY 09/14/16 12/21/17 amLODIPine [Norvasc] 5 mg PO DAILY 09/14/16 12/21/17 Ipratropium-Albuterol Nebulize 3 ml INHALATION QID PRN 01/10/17 12/21/17 [Duoneb 0.5 mg-3 mg/3 ml Soln] Rosuvastatin Calcium [Crestor] 40 mg PO DAILY 01/10/17 12/21/17 Tiotropium Br/Olodaterol HCl 1 spray INHALATION DAILY 01/10/17 12/21/17 [Stiolto Respimat Inhal [place]] Meloxicam [Mobic] 7.5 mg PO DAILY 12/12/17 12/21/17 metFORMIN HCL [Glucophage] 500 mg PO DAILY 12/12/17 12/21/17 Previous Rx's Medication Instructions Recorded Acetaminophen-Codeine 300-30mg 1 tab PO Q4H PRN 3 Days #18 tablet 12/18/17 [Tylenol w/codeine #3] Allergies Allergy/AdvReac Type Severity Reaction Status Date / Time hydrocodone bitartrate AdvReac Nausea & Verified 12/21/17 11:07 [From Vicodin] Vomiting propoxyphene napsylate AdvReac Nausea & Verified 12/21/17 11:07 [From Darvocet-N 100] Vomiting Review of Systems ROS Statement: Those systems with pertinent positive or pertinent negative responses have been documented in the HPI. ROS Other: All systems not noted in ROS Statement are negative. Constitutional: Denies: fever Eyes: Denies: eye pain ENT: Reports: hearing loss. Denies: ear pain Respiratory: Reports: dyspnea Cardiovascular: Reports: chest pain Endocrine: Reports: fatigue Gastrointestinal: Reports: abdominal pain, constipation (Last bowel movement was 4 days ago.). Denies: vomiting Genitourinary: Denies: dysuria Musculoskeletal: Denies: back pain Skin: Denies: rash Neurological: Denies: headache Psychiatric: Reports: anxiety Past Medical History Past Medical History: COPD, Deep Vein Thrombosis (DVT), Fibromyalgia, GERD/ Reflux, Hyperlipidemia, Hypertension, Osteoarthritis (OA), Skin Disorder Additional Past Medical History / Comment(s): DIVERTICULITIS, HX KIDNEY STONES & Pneumonia, ROSACEA, DVT RLE 2007, History of Any Multi-Drug Resistant Organisms: None Reported Past Surgical History: Appendectomy, Bowel Resection, Heart Catheterization With Stent, Hernia Repair, Tubal Ligation Additional Past Surgical History / Comment(s): COLONOSCOPY, PARTIAL LT LOBECTOMY , D & C, 07-17-14 BOWEL RESECTION[place] [facility] [place] Past Anesthesia/Blood Transfusion Reactions: No Reported Reaction Date of Last Stent Placement:: [place] [facility] [place] Past Psychological History: Anxiety, Panic Disorder Smoking Status: Former smoker Past Alcohol Use History: Occasional Past Drug Use History: None Reported - Past Family History Mother Family Medical History: Congestive Heart Failure (CHF) Father Family Medical History: Cancer Additional Family Medical History / Comment(s): TYPE OF CANCER NOT KNOWN General Exam Limitations: no limitations General appearance: alert, in no apparent distress Head exam: Present: atraumatic Eye exam: Present: normal appearance, PERRL ENT exam: Present: normal oropharynx, other (Right ear canal with cerumen impaction) Neck exam: Present: normal inspection Respiratory exam: Present: normal lung sounds bilaterally. Absent: respiratory distress, wheezes, chest wall tenderness, accessory muscle use, decreased breath sounds Cardiovascular Exam: Present: regular rate, normal rhythm Expanded Peripheral pulses: 2+: Radial (R), Radial (L), Dorsalis Pedis (R), Dorsalis Pedis (L) GI/Abdominal exam: Present: soft, tenderness (Mild diffuse tenderness, moderate tenderness in the epigastric region), diminished bowel sounds. Absent: distended, guarding, rebound, rigid, pulsatile mass Extremities exam: Present: normal inspection. Absent: pedal edema, calf tenderness Back exam: Present: normal inspection Neurological exam: Present: alert Psychiatric exam: Present: normal affect, normal mood Skin exam: Present: normal color Course Vital Signs 12/21/17 12/21/17 12/21/17 10:38 11:43 13:42 Temperature 98.5 F Pulse Rate 62 60 61 Respiratory 18 18 18 Rate Blood Pressure 122/73 119/56 131/62 O2 Sat by Pulse 93 L 93 L 94 L Oximetry EKG Findings - EKG Comments: EKG Findings:: Sinus bradycardia 57. SC 158. QRS 90. QT 436. QTc 424. Normal axis. Normal QRS. No acute ST change. Medical Decision Making - Medical Decision Making Patient reevaluated and resting comfortably at bedside. Patient can hear normally now following irrigation of the right ear with positive cerumen extraction. Patient is feeling better. Patient updated on results and plan. Case was discussed in detail with Dr. Cantor, who will keep from observation for Dr. Garber. Dr. Villarreal also notified. - Lab Data Result diagrams: 12/21/17 11:43 12/21/17 11:43 Lab Results 12/21/17 12/21/17 12/21/17 Range/Units 11:43 11:43 11:43 WBC 9.1 (3.8-10.6) k/uL RBC 4.28 (3.80-5.40) m/uL Hgb 13.7 (11.4-16.0) gm/dL Hct 40.5 (34.0-46.0) % MCV 94.6 (80.0-100.0) fL MCH 31.9 (25.0-35.0) pg MCHC 33.7 (31.0-37.0) g/dL RDW 14.4 (11.5-15.5) % Plt Count 295 (150-450) k/uL Neutrophils % 82 % Lymphocytes % 9 % Monocytes % 5 % Eosinophils % 3 % Basophils % 0 % Neutrophils # 7.4 (1.3-7.7) k/uL Lymphocytes # 0.8 L (1.0-4.8) k/uL Monocytes # 0.5 (0-1.0) k/uL Eosinophils # 0.2 (0-0.7) k/uL Basophils # 0.0 (0-0.2) k/uL PT (9.0-12.0) sec INR (<1.2) APTT (22.0-30.0) sec Sodium 138 (137-145) mmol/L Potassium 3.8 (3.5-5.1) mmol/L Chloride 99 (98-107) mmol/L Carbon Dioxide 25 (22-30) mmol/L Anion Gap 14 mmol/L BUN 15 (7-17) mg/dL Creatinine 0.86 (0.52-1.04) mg/dL Est GFR (CKD-EPI)AfAm 84 (>60 ml/min/1.73 sqM) Est GFR (CKD-EPI)NonAf 73 (>60 ml/min/1.73 sqM) Glucose 116 H (74-99) mg/dL Calcium 9.5 (8.4-10.2) mg/dL Total Bilirubin 0.9 (0.2-1.3) mg/dL AST 47 H (14-36) U/L ALT 42 (9-52) U/L Alkaline Phosphatase 105 (38-126) U/L Total Creatine Kinase 406 H (30-135) U/L CK-MB (CK-2) 0.7 (0.0-2.4) ng/mL CK-MB (CK-2) Rel Index 0.2 Troponin I <0.012 (0.000-0.034) ng/mL Total Protein 7.3 (6.3-8.2) g/dL Albumin 4.3 (3.5-5.0) g/dL Amylase 37 (30-110) U/L Lipase 40 (23-300) U/L Urine Color Urine Appearance (Clear) Urine pH (5.0-8.0) Ur Specific [place] (1.001-1.035) Urine Protein (Negative) Urine Glucose (UA) (Negative) Urine Ketones (Negative) Urine Blood (Negative) Urine Nitrite (Negative) Urine Bilirubin (Negative) Urine Urobilinogen (<2.0) mg/dL Ur Leukocyte Esterase (Negative) 12/21/17 12/21/17 Range/Units 11:43 12:35 WBC (3.8-10.6) k/uL RBC (3.80-5.40) m/uL Hgb (11.4-16.0) gm/dL Hct (34.0-46.0) % MCV (80.0-100.0) fL MCH (25.0-35.0) pg MCHC (31.0-37.0) g/dL RDW (11.5-15.5) % Plt Count (150-450) k/uL Neutrophils % % Lymphocytes % % Monocytes % % Eosinophils % % Basophils % % Neutrophils # (1.3-7.7) k/uL Lymphocytes # (1.0-4.8) k/uL Monocytes # (0-1.0) k/uL Eosinophils # (0-0.7) k/uL Basophils # (0-0.2) k/uL PT 10.1 (9.0-12.0) sec INR 1.0 (<1.2) APTT 23.4 (22.0-30.0) sec Sodium (137-145) mmol/L Potassium (3.5-5.1) mmol/L Chloride (98-107) mmol/L Carbon Dioxide (22-30) mmol/L Anion Gap mmol/L BUN (7-17) mg/dL Creatinine (0.52-1.04) mg/dL Est GFR (CKD-EPI)AfAm (>60 ml/min/1.73 sqM) Est GFR (CKD-EPI)NonAf (>60 ml/min/1.73 sqM) Glucose (74-99) mg/dL Calcium (8.4-10.2) mg/dL Total Bilirubin (0.2-1.3) mg/dL AST (14-36) U/L ALT (9-52) U/L Alkaline Phosphatase (38-126) U/L Total Creatine Kinase (30-135) U/L CK-MB (CK-2) (0.0-2.4) ng/mL CK-MB (CK-2) Rel Index Troponin I (0.000-0.034) ng/mL Total Protein (6.3-8.2) g/dL Albumin (3.5-5.0) g/dL Amylase (30-110) U/L Lipase (23-300) U/L Urine Color Light Yellow Urine Appearance Clear (Clear) Urine pH 7.0 (5.0-8.0) Ur Specific [place] 1.015 (1.001-1.035) Urine Protein Negative (Negative) Urine Glucose (UA) Negative (Negative) Urine Ketones Negative (Negative) Urine Blood Negative (Negative) Urine Nitrite Negative (Negative) Urine Bilirubin Negative (Negative) Urine Urobilinogen <2.0 (<2.0) mg/dL Ur Leukocyte Esterase Negative (Negative) - Radiology Data Radiology results: report reviewed (CT angios chest shows no pulmonary embolism. Coronary calcifications are present. CT abdomen and pelvis shows postoperative changes. Some inflammatory change, possible local incarceration of fat or infection or local hemorrhage. Anterior abdominal wall.) Disposition Clinical Impression: Chest pain, Abdominal pain, Cerumen impaction Disposition: ADMITTED IP TO THIS HOSP Referrals: Gregorio Garber MD [Primary Care Provider] - 1-2 days Decision Time: 13:48
[2017-12-21 11:54] LABS: Basophils % (A) 0 %; Eosinophils # (A) 0.2 k/uL (0-0.7); Eosinophils % (A) 3 %; HCT 40.5 % (34.0-46.0); HGB 13.7 gm/dL (11.4-16.0); Lymphocytes # (A) 0.8 k/uL (1.0-4.8); Lymphocytes % (A) 9 %; MCH 31.9 pg (25.0-35.0); MCHC 33.7 g/dL (31.0-37.0); MCV 94.6 fL (80.0-100.0); Mean Platelet Volume 6.8; Monocytes # (A) 0.5 k/uL (0-1.0); Monocytes % (A) 5 %; Neutrophils # (A) 7.4 k/uL (1.3-7.7); Neutrophils % (A) 82 %; Platelet Count 295 k/uL (150-450); RBC 4.28 m/uL (3.80-5.40); RDW 14.4 % (11.5-15.5); WBC 9.1 k/uL (3.8-10.6)
[2017-12-21 12:03] LABS: Partial Thromboplastin Time 23.4 sec (22.0-30.0); Prothrombin Time 10.1 sec (9.0-12.0)
[2017-12-21 12:07] LABS: Albumin 4.3 g/dL (3.5-5.0); Calcium 9.5 mg/dL (8.4-10.2); Potassium 3.8 mmol/L (3.5-5.1); Total Bilirubin 0.9 mg/dL (0.2-1.3); Total Protein 7.3 g/dL (6.3-8.2)
[2017-12-21 12:14] LABS: Creatine Kinase 406 U/L (30-135)
[2017-12-21 12:27] LABS: Creatine Kinase MB 0.7 ng/mL (0.0-2.4); Troponin I <0.012 ng/mL (0.000-0.034)
--- NOTE | 2017-12-21 12:39 | CT ---
EXAMINATION TYPE: CT angio chest DATE OF EXAM: 12/21/2017 COMPARISON: 10/11/2016 HISTORY: SOB, Post op pain status post umbilical hernia repair CT DLP: 1723.7 (CTA chest, CT abd pelvis) mGycm. Automated Exposure Control for Dose Reduction was Ut ilized. CONTRAST: CTA scan of the thorax is performed with IV Contrast, patient injected with 100 mL of Isovue 370, pul monary embolism protocol. MIP Images are created on CT scanner and reviewed. FINDINGS: LUNGS: Mild paraseptal emphysematous changes are most pronounced at the lung apices. Subpleural retic ulation may relate to early fibrotic change or atelectasis. Sutures are noted along the peripheral le ft lung with postoperative linear fibrosis. No new focal consolidation or pulmonary mass is identifie d. Right basilar linear subsegmental atelectasis is seen. There is no pleural effusion or pneumothora x seen. The tracheobronchial tree is patent. MEDIASTINUM: There is satisfactory enhancement of the pulmonary artery and its branches, there is no CT evidence for pulmonary embolism. There are no greater than 1 cm hilar or mediastinal lymph nodes. No pericardial effusion is seen. Severe coronary artery calcifications are present. Heart is mildl y enlarged. Moderate calcific and noncalcific atheromatous plaquing is seen of the thoracic aorta. As cending thoracic aorta and main pulmonary artery are within normal limits of size. Main pulmonary art brandy measures 2.5 cm. Incidentally noted calcified mediastinal lymph nodes, benign. Mediastinal lipoma tosis is also benign. There is reflux of contrast into the inferior vena cava and hepatic veins which can be seen in a degree of right heart insufficiency. OTHER: Visualized portions of the upper abdomen are discussed in the abdomen and pelvis CT of the [facility] e date. Midthoracic compression deformity is unchanged from 10/11/2016. IMPRESSION: 1. No evidence of pulmonary embolus. 2. Severe coronary artery calcifications, marker of coronary artery disease. 3. Mild paraseptal emphysema and subpleural reticulation that could relate to early fibrotic change o r atelectasis.
--- NOTE | 2017-12-21 12:41 | CT ---
EXAMINATION TYPE: CT abdomen pelvis w con DATE OF EXAM: 12/21/2017 COMPARISON: CT abdomen pelvis 10/11/2016 HISTORY: SOB, Post op pain- umbilical hernia repair CT DLP: 1723.7 (CT abd pelvis and CTA chest) mGycm Automated exposure control for dose reduction was used. TECHNIQUE: Helical acquisition of images from the lung bases through the pelvis have been completed. CONTRAST: Performed with IV Contrast, patient injected with 100 mL of Isovue 370. FINDINGS: LUNG BASES: Stable. AORTA: No significant abnormality is appreciated. LIVER/GB: Liver shows low attenuation likely due to hepatic steatosis. Gallbladder is normal. PANCREAS: No significant abnormality is seen. SPLEEN: No significant abnormality is seen. ADRENALS: No significant abnormality is seen. KIDNEYS: No significant abnormality is seen. REPRODUCTIVE ORGANS: No significant abnormality is seen BOWEL: Postop changes are present in the rectosigmoid region, there is no evident bowel obstruction. Colonic interposition noted anterior to the liver. Along the anterior abdominal wall at the site of patient's prior umbilical hernia there is some redun rhona increased soft tissue density present, the repair shows overlying scar. Increased attenuation p resent within the subcutaneous fat superficial to the anterior abdominal wall. Immediately deep to th e anterior abdominal wall there is inflammatory change just deep to the right rectus muscle, some inc reased attenuation is present along the musculature there is an interval finding FREE AIR: No Free Air visible. ASCITES: None visible. PELVIC ADENOPATHY: None visualized. RETROPERITONEAL ADENOPATHY: No Retroperitoneal Adenopathy visible. URINARY BLADDER: No significant abnormality is seen. OSSEOUS STRUCTURES: No significant abnormality is seen. IMPRESSION: POSTOP CHANGES ARE PRESENT. THERE IS INFLAMMATORY CHANGE, DIFFICULT TO EXCLUDE SOME LOCAL INCARCERATI ON OF FAT ALONG THE REPAIR OR POSSIBLY INFECTION OR SOME LOCAL HEMORRHAGE. FOLLOW-UP INDICATED.
[2017-12-21 12:57] LABS: Appearance,Urine Clear (Clear); Bilirubin,Urine Negative (Negative); Blood,Urine Negative (Negative); Color,Urine Light Yellow; Glucose,Urine (UA) Negative (Negative); Ketones,Urine Negative (Negative); Leukocyte Esterase,Urine Negative (Negative); Nitrite,Urine Negative (Negative); Protein,Urine Negative (Negative); Specific Gravity,Urine 1.015 (1.001-1.035); Urobilinogen,Urine <2.0 mg/dL (<2.0)
[2017-12-21] MEDS ORDERED: ASPIRIN 81 MG PO STA (13:48)
[2017-12-21] MEDS ORDERED: NITROGLYCERIN SL TABS 0.4 MG TAB SUBLINGUAL PRN (13:48)
[2017-12-21] MEDS ORDERED: HYDROcodone/APAP 7.5-325MG 1 EACH TAB PO PRN (15:10)
[2017-12-21] MEDS ORDERED: IPRATROPIUM-ALBUTEROL 3 ML NEB INHALATION PRN (15:10)
--- NOTE | 2017-12-21 15:27 | P.HPIM ---
History of Present Illness H&P Date: 12/21/17 Chief Complaint: postop pain This is a 62-year-old female patient being seen examined and evaluated while we are covering for Dr. Garber. This patient apparently had hernia repair surgery 3 days ago and since then she is unable to have a bowel movement and has had some mild chest discomfort as well. She also complains that she has been unable to hear out of her right ear however since she was admitted the nursing staff did do an ear irrigation and the patient states she's feeling better in the right ear and came here more however is slightly muffled. She also complains of having some abdominal discomfort and has been unable to have a bowel movement since surgery. Upon examination she is resting up in bed states have some shortness of breath with exertion. She does not use home O2. Currently she is on Ventolin MDI as well as stiletto MDI. Currently she denies any chest discomfort. She is afebrile no further complaints. Review of Systems 14 point review of systems was completed and is negative unless noted above in the HPI. Past Medical History Past Medical History: COPD, Deep Vein Thrombosis (DVT), Fibromyalgia, GERD/ Reflux, Hyperlipidemia, Hypertension, Osteoarthritis (OA), Skin Disorder Additional Past Medical History / Comment(s): DIVERTICULITIS, HX KIDNEY STONES & Pneumonia, ROSACEA, DVT RLE 2007, History of Any Multi-Drug Resistant Organisms: None Reported Past Surgical History: Appendectomy, Bowel Resection, Heart Catheterization With Stent, Hernia Repair, Tubal Ligation Additional Past Surgical History / Comment(s): COLONOSCOPY, PARTIAL LT LOBECTOMY , D & C, 07-17-14 BOWEL RESECTION, HEART CATH W 2 STENTS AT [facility] – [place] 11-15-15 Past Anesthesia/Blood Transfusion Reactions: No Reported Reaction Date of Last Stent Placement:: 11-15-15 AT [facility] [place] Past Psychological History: Anxiety, Panic Disorder Smoking Status: Former smoker Past Alcohol Use History: Occasional Past Drug Use History: None Reported - Past Family History Mother Family Medical History: Congestive Heart Failure (CHF) Father Family Medical History: Cancer Additional Family Medical History / Comment(s): TYPE OF CANCER NOT KNOWN Medications and Allergies Home Medications Medication Instructions Recorded Confirmed Type Aspirin 81 mg PO DAILY 02/20/14 12/21/17 History Atenolol/Chlorthalidone [Tenoretic 1 tab PO DAILY 02/20/14 12/21/17 History 50 Tablet] Montelukast [Singulair] 10 mg PO DAILY 02/20/14 12/21/17 History Omeprazole 40 mg PO DAILY 02/20/14 12/21/17 History clonazePAM [Clonazepam] 1 mg PO TID 02/20/14 12/21/17 History Calcium Carbonate/Vitamin D3 1 tab PO DAILY 07/14/14 12/21/17 History [Calcium 600-Vit D3 400 Tablet] Linaclotide [Linzess] 145 mcg PO DAILY PRN 07/14/14 12/21/17 History Clopidogrel [Plavix] 75 mg PO DAILY 09/14/16 12/21/17 History HYDROcodone/APAP 7.5-325MG [[place] 1 tab PO Q4H PRN 09/14/16 12/21/17 History 7.5-325] Potassium Chloride [K-Tab ER] 10 meq PO DAILY 09/14/16 12/21/17 History amLODIPine [Norvasc] 5 mg PO DAILY 09/14/16 12/21/17 History Ipratropium-Albuterol Nebulize 3 ml INHALATION QID PRN 01/10/17 12/21/17 History [Duoneb 0.5 mg-3 mg/3 ml Soln] Rosuvastatin Calcium [Crestor] 40 mg PO DAILY 01/10/17 12/21/17 History Tiotropium Br/Olodaterol HCl 1 spray INHALATION DAILY 01/10/17 12/21/17 History [Stiolto Respimat Inhal [place]] Meloxicam [Mobic] 7.5 mg PO DAILY 12/12/17 12/21/17 History metFORMIN HCL [Glucophage] 500 mg PO DAILY 12/12/17 12/21/17 History Acetaminophen-Codeine 300-30mg 1 tab PO Q4H PRN 3 Days #18 tablet 12/18/1712/21 Rx [Tylenol w/codeine #3] Allergies Allergy/AdvReac Type Severity Reaction Status Date / Time hydrocodone bitartrate AdvReac Nausea & Verified 12/21/17 11:07 [From Vicodin] Vomiting propoxyphene napsylate AdvReac Nausea & Verified 12/21/17 11:07 [From Darvocet-N 100] Vomiting Physical Exam Vitals: Vital Signs Temp Pulse Resp BP Pulse Ox 12/21/17 14:20 98.3 F 60 18 122/65 94 L 12/21/17 13:42 61 18 131/62 94 L 12/21/17 11:43 60 18 119/56 93 L 12/21/17 10:38 98.5 F 62 18 122/73 93 L Intake and Output 12/21/17 12/21/17 12/21/17 06:59 14:59 22:59 Other: Weight 81.193 kg GENERAL EXAM: Alert, comfortable in no apparent distress. HEAD: Normocephalic. EYES: Normal reaction of pupils, equal size. NOSE: Clear with pink turbinates. THROAT: No erythema or exudates. NECK: No masses, no JVD. CHEST: No chest wall deformity. LUNGS: Equal air entry with no crackles, wheeze, rhonchi or dullness. Bases diminished CVS: S1 and S2 normal with no audible mumurs, regular rhythm. ABDOMEN: No hepatosplenomegaly, normal bowel sounds, no guarding or rigidity. Abdominal binder in place EXTREMITIES: No edema noted, pedal pulses palpable. CENTRAL NERVOUS SYSTEM: No focal deficits, tone is normal in all 4 extremities. Results CBC & Chem 7: 12/21/17 11:43 12/21/17 11:43 Labs: Abnormal Lab Results - Last 24 Hours (Table) 12/21/17 12/21/17 12/21/17 Range/Units 11:43 11:43 11:43 Lymphocytes # 0.8 L (1.0-4.8) k/uL Glucose 116 H (74-99) mg/dL AST 47 H (14-36) U/L Total Creatine Kinase 406 H (30-135) U/L CT scan - chest: report reviewed, image reviewed Thrombosis Risk Factor Assmnt - DVT/VTE Prophylaxis DVT/VTE Prophylaxis: Pharmacologic Prophylaxis ordered Assessment and Plan Assessment: Assessment Status post hernia repair surgery 3 days ago Abdominal pain and constipation CAD Hypertension COPD not acutely exacerbated History of DVT right lower extremity 2008 History of heart catheterization with stent Plan Medications have been reviewed and will be continued as ordered. Labs in the morning CTA reviewed, no evidence of PE, severe coronary artery calcifications noted as well as emphysema CT of the abdomen and pelvis noted there is inflammatory change difficult to exclude some local incarcerated fat or possible infection Cardiology and surgical services on consult and notified Continue with pulmonary hygiene, coughing and deep breathing exercises, and supportive care. Supplemental oxygen to maintain oxygen saturations of 92% or better. Continue nebulizer treatments. We'll initiate and encourage incentive spirometer GI and DVT prophylaxis. We will continue to monitor labs/results and adjust treatment as necessary. Further recommendations pending. I performed an examination of the patient and discussed their management with the nurse practitioner. I have reviewed the nurse practitioner's note and agree with the documented findings and plan of care.
[2017-12-21] MEDS: clonazePAM 1 MG TAB PO SCH (16:28)
[2017-12-21] MEDS: PANTOPRAZOLE 40 MG/10 ML VIAL IVP SCH (16:28)
[2017-12-21 18:45] LABS: Creatine Kinase 317 U/L (30-135)
[2017-12-21 18:57] LABS: Creatine Kinase MB 0.5 ng/mL (0.0-2.4); Troponin I <0.012 ng/mL (0.000-0.034)
[2017-12-21 20:07] VITALS: RESP 18
[2017-12-21] MEDS: MORPHINE SULFATE 2 MG/ML SYRINGE IVP PRN (21:09)
[2017-12-22] MEDS: MORPHINE SULFATE 2 MG/ML SYRINGE IVP PRN ×2 (00:58→05:01)
[2017-12-22 01:17] LABS: Creatine Kinase 277 U/L (30-135)
[2017-12-22 01:30] LABS: Creatine Kinase MB 0.6 ng/mL (0.0-2.4); Troponin I <0.012 ng/mL (0.000-0.034)
[2017-12-22] MEDS: clonazePAM 1 MG TAB PO SCH ×2 (04:54→08:44)
[2017-12-22 07:12] LABS: Basophils % (A) 0 %; Eosinophils # (A) 0.2 k/uL (0-0.7); Eosinophils % (A) 2 %; HCT 40.5 % (34.0-46.0); HGB 13.7 gm/dL (11.4-16.0); Lymphocytes % (A) 11 %; MCH 31.5 pg (25.0-35.0); MCHC 33.9 g/dL (31.0-37.0); MCV 92.9 fL (80.0-100.0); Mean Platelet Volume 6.6; Monocytes # (A) 0.6 k/uL (0-1.0); Monocytes % (A) 6 %; Neutrophils # (A) 6.9 k/uL (1.3-7.7); Neutrophils % (A) 79 %; Platelet Count 318 k/uL (150-450); RBC 4.35 m/uL (3.80-5.40); RDW 13.6 % (11.5-15.5); WBC 8.7 k/uL (3.8-10.6)
[2017-12-22] MEDS ORDERED: metFORMIN 500 MG TAB PO SCH (07:30)
[2017-12-22] MEDS ORDERED: PANTOPRAZOLE 40 MG TABLET PO SCH (07:30)
[2017-12-22 07:31] LABS: Albumin 4.4 g/dL (3.5-5.0); Calcium 9.5 mg/dL (8.4-10.2); Potassium 3.9 mmol/L (3.5-5.1); Total Bilirubin 1.1 mg/dL (0.2-1.3); Total Protein 7.4 g/dL (6.3-8.2)
[2017-12-22] MEDS ORDERED: OLODATEROL HCL INHALATION SCH (08:00)
[2017-12-22] MEDS ORDERED: TIOTROPIUM BR INHALATION SCH (08:00)
[2017-12-22] MEDS: PANTOPRAZOLE 40 MG/10 ML VIAL IVP SCH (08:41)
[2017-12-22] MEDS ORDERED: ASPIRIN 325 MG TAB PO SCH (09:00)
[2017-12-22] MEDS ORDERED: ATENOLOL 50 MG TAB PO SCH (09:00)
[2017-12-22] MEDS ORDERED: MONTELUKAST 10 MG TAB PO SCH (09:00)
[2017-12-22] MEDS ORDERED: CALCIUM CARB-VIT D 500MG-200UN 1 EACH TAB PO SCH (09:00)
[2017-12-22] MEDS ORDERED: MELOXICAM 7.5 MG TAB PO SCH (09:00)
[2017-12-22] MEDS ORDERED: amLODIPine 5 MG TAB PO SCH (09:00)
[2017-12-22] MEDS ORDERED: ASPIRIN 81 MG PO SCH (09:00)
[2017-12-22] MEDS ORDERED: ATORVASTATIN 80 MG TAB PO SCH (09:00)
[2017-12-22] MEDS ORDERED: POTASSIUM CHLORIDE ER 10 MEQ TAB.ER.PRT PO SCH (09:00)
[2017-12-22] MEDS ORDERED: CLOPIDOGREL 75 MG TAB PO SCH (09:00)
[2017-12-22] MEDS ORDERED: CHLORTHALIDONE 25 MG TAB PO SCH (09:00)
--- NOTE | 2017-12-22 09:47 | P.GSCN ---
History of Present Illness Consult date: 12/22/17 Reason for Consult: Abdominal pain, nausea History of present illness: This is a 62-year-old female who underwent laparoscopic robotic-assisted repair of incisional hernia last week. Patient had complaints of decreased hearing out of her right ear. She presented to the emergency room because this. She also stated that she had some chest pain. Patient's found have earwax blocking her ear canal. Due to her complaints of chest pain she was observed overnight. Patient states that she has had some nausea and abdominal pain. She states the nausea related to her pain meds. She feels better today. Past Medical History Past Medical History: COPD, Deep Vein Thrombosis (DVT), Fibromyalgia, GERD/ Reflux, Hyperlipidemia, Hypertension, Osteoarthritis (OA), Skin Disorder Additional Past Medical History / Comment(s): DIVERTICULITIS, HX KIDNEY STONE- still has it but it's never moved , Pneumonia, ROSACEA, DVT RLE 2007,gerson cataracats History of Any Multi-Drug Resistant Organisms: None Reported Past Surgical History: Appendectomy, Bowel Resection, Heart Catheterization With Stent, Hernia Repair, Tubal Ligation Additional Past Surgical History / Comment(s): COLONOSCOPY, PARTIAL LT LOBECTOMY -(pt stated they thought i might of had tb but it was just scar tissue), D & C , 07-17-14 BOWEL RESECTION, HEART CATH W 2 ST[place] [facility] [place] , 12-18-17 lap robotic assisted repair of inc hernia Past Anesthesia/Blood Transfusion Reactions: No Reported Reaction Date of Last Stent Placement:: 11-15-15 [place] [facility] [place] Smoking Status: Former smoker - Past Family History Mother Family Medical History: Congestive Heart Failure (CHF) Father Family Medical History: Cancer Additional Family Medical History / Comment(s): TYPE OF CANCER NOT KNOWN Medications and Allergies Home Medications Medication Instructions Recorded Confirmed Type Aspirin 81 mg PO DAILY 02/20/14 12/21/17 History Atenolol/Chlorthalidone [Tenoretic 1 tab PO DAILY 02/20/14 12/21/17 History 50 Tablet] Montelukast [Singulair] 10 mg PO DAILY 02/20/14 12/21/17 History Omeprazole 40 mg PO DAILY 02/20/14 12/21/17 History clonazePAM [Clonazepam] 1 mg PO TID 02/20/14 12/21/17 History Calcium Carbonate/Vitamin D3 1 tab PO DAILY 07/14/14 12/21/17 History [Calcium 600-Vit D3 400 Tablet] Linaclotide [Linzess] 145 mcg PO DAILY PRN 07/14/14 12/21/17 History Clopidogrel [Plavix] 75 mg PO DAILY 09/14/16 12/21/17 History HYDROcodone/APAP 7.5-325MG [[place] 1 tab PO Q4H PRN 09/14/16 12/21/17 History 7.5-325] Potassium Chloride [K-Tab ER] 10 meq PO DAILY 09/14/16 12/21/17 History amLODIPine [Norvasc] 5 mg PO DAILY 09/14/16 12/21/17 History Ipratropium-Albuterol Nebulize 3 ml INHALATION QID PRN 01/10/17 12/21/17 History [Duoneb 0.5 mg-3 mg/3 ml Soln] Rosuvastatin Calcium [Crestor] 40 mg PO DAILY 01/10/17 12/21/17 History Tiotropium Br/Olodaterol HCl 1 spray INHALATION DAILY 01/10/17 12/21/17 History [Stiolto Respimat Inhal [place]] Meloxicam [Mobic] 7.5 mg PO DAILY 12/12/17 12/21/17 History metFORMIN HCL [Glucophage] 500 mg PO DAILY 12/12/17 12/21/17 History Acetaminophen-Codeine 300-30mg 1 tab PO Q4H PRN 3 Days #18 tablet 12/18/1712/21 Rx [Tylenol w/codeine #3] Allergies Allergy/AdvReac Type Severity Reaction Status Date / Time hydrocodone bitartrate AdvReac Nausea & Verified 12/21/17 11:07 [From Vicodin] Vomiting propoxyphene napsylate AdvReac Nausea & Verified 12/21/17 11:07 [From Darvocet-N 100] Vomiting Surgical - Exam Vital Signs Temp Pulse Resp BP Pulse Ox 98.5 F 62 18 122/73 93 L 12/21/17 10:38 12/21/17 10:38 12/21/17 10:38 12/21/17 10:38 12/21/17 10:38 - General well developed, no distress - Eyes PERRL - ENT normal pinna - Neck no masses - Respiratory normal expansion - Cardiovascular Rhythm: regular - Abdomen Incision sites are clean dry intact. Abdomen: soft, non tender Results - Labs 12/22/17 06:19 12/22/17 06:19 Abnormal Lab Results - Last 24 Hours (Table) 12/21/17 12/21/17 12/21/17 Range/Units 11:43 11:43 11:43 Lymphocytes # 0.8 L (1.0-4.8) k/uL Chloride (98-107) mmol/L Glucose 116 H (74-99) mg/dL AST 47 H (14-36) U/L Total Creatine Kinase 406 H (30-135) U/L Triglycerides (<150) mg/dL 12/21/17 12/21/17 12/22/17 Range/Units 17:41 23:34 06:19 Lymphocytes # (1.0-4.8) k/uL Chloride 96 L (98-107) mmol/L Glucose 104 H (74-99) mg/dL AST 48 H (14-36) U/L Total Creatine Kinase 317 H 277 H (30-135) U/L Triglycerides 194 H (<150) mg/dL Diabetes panel 12/21/17 12/22/17 Range/Units 11:43 06:19 Sodium 138 138 (137-145) mmol/L Potassium 3.8 3.9 (3.5-5.1) mmol/L Chloride 99 96 L (98-107) mmol/L Carbon Dioxide 25 28 (22-30) mmol/L BUN 15 16 (7-17) mg/dL Creatinine 0.86 1.01 (0.52-1.04) mg/dL Glucose 116 H 104 H (74-99) mg/dL Calcium 9.5 9.5 (8.4-10.2) mg/dL AST 47 H 48 H (14-36) U/L ALT 42 45 (9-52) U/L Alkaline Phosphatase 105 105 (38-126) U/L Total Protein 7.3 7.4 (6.3-8.2) g/dL Albumin 4.3 4.4 (3.5-5.0) g/dL Triglycerides 194 H (<150) mg/dL HDL Cholesterol 54 (40-60) mg/dL Calcium panel 12/21/17 12/22/17 Range/Units 11:43 06:19 Calcium 9.5 9.5 (8.4-10.2) mg/dL Albumin 4.3 4.4 (3.5-5.0) g/dL Pituitary panel 12/21/17 12/22/17 Range/Units 11:43 06:19 Sodium 138 138 (137-145) mmol/L Potassium 3.8 3.9 (3.5-5.1) mmol/L Chloride 99 96 L (98-107) mmol/L Carbon Dioxide 25 28 (22-30) mmol/L BUN 15 16 (7-17) mg/dL Creatinine 0.86 1.01 (0.52-1.04) mg/dL Glucose 116 H 104 H (74-99) mg/dL Calcium 9.5 9.5 (8.4-10.2) mg/dL Adrenal panel 18 12/22/17 Range/Units 11:43 06:19 Sodium 138 138 (137-145) mmol/L Potassium 3.8 3.9 (3.5-5.1) mmol/L Chloride 99 96 L (98-107) mmol/L Carbon Dioxide 25 28 (22-30) mmol/L BUN 15 16 (7-17) mg/dL Creatinine 0.86 1.01 (0.52-1.04) mg/dL Glucose 116 H 104 H (74-99) mg/dL Calcium 9.5 9.5 (8.4-10.2) mg/dL Total Bilirubin 0.9 1.1 (0.2-1.3) mg/dL AST 47 H 48 H (14-36) U/L ALT 42 45 (9-52) U/L Alkaline Phosphatase 105 105 (38-126) U/L Total Protein 7.3 7.4 (6.3-8.2) g/dL Albumin 4.3 4.4 (3.5-5.0) g/dL Assessment and Plan Assessment: Normal postoperative incisional pain. The patient will alternate her pain meds with Motrin to help avoid her side effect of nausea. She is stable for discharge today from a surgical standpoint.
[2017-12-22] MEDS ORDERED: IBUPROFEN 400 MG TAB PO PRN (10:07)
--- NOTE | 2017-12-22 10:38 | CONS ---
CONSULTATION Gianna Dale is a 62-year-old female who had hernia repair surgery about 3 days back and she started experiencing severe abdominal discomfort. Lately she complained of some chest discomfort and shortness of breath. Cardiology was consulted for this. She also could not hear out of the right ear. At this time, she looks comfortable. She is not having any chest pain, no shortness of breath and she feels that she had such severe pain at that time that she became very short of breath and nervous. REVIEW OF SYSTEMS: No fever, chills, or rigors. No cough or expectoration. No nausea, vomiting, or diarrhea. No hematuria or dysuria. No strokes, seizures or skin lesions. No musculoskeletal complaints. She has recent abdominal pain and difficulty hearing out of the right ear. PAST MEDICAL HISTORY: DVT, COPD, coronary artery disease, coronary stenting x2. Also history of hypertension and diabetes. PAST SURGICAL HISTORY: Appendectomy, bowel resection, colonoscopy, partial left lobectomy. SOCIAL HISTORY: She is a former smoker. Alcohol use: Minimal. MEDICATION LIST: Was reviewed and is documented in the chart and includes aspirin, atenolol, Plavix, amlodipine, metformin. ALLERGIES: ALLERGIES TO HYDROCODONE AND PROPOXYPHENE. PHYSICAL EXAMINATION: VITAL SIGNS: On examination, her blood pressure was normal 132/73 mmHg, pulse rate in the 60s. HEENT: Head and neck examination normal. HEART sounds S1, S2 are normal. No murmurs or gallops. No rub. RESPIRATORY: Breath sounds are clear. No rhonchi, no crackles. ABDOMEN: Soft. EXTREMITIES are warm. No edema. A 12-lead ECG shows sinus rhythm, 57 beats per minute, normal ST segments. CT of the chest did not show any pulmonary embolism. LABS: Labs were reviewed. LDL 86. Cardiac enzymes x3 are normal. CPKs are elevated indicative of skeletal muscle release rather than cardiac injury. Electrolytes are normal. Hemoglobin is normal. IMPRESSION: 1. Atypical chest discomfort, shortness of breath. 2. Known coronary artery disease status post coronary stenting. 3. History of diabetes on metformin. 4. History of hypertension. Blood pressure is well controlled. SUGGEST: From a cardiac standpoint, I do not see any acute problems at this time. I will get a 2D echo Doppler study on her and she should continue her cardiac medications. Workup of her abdominal pain per the primary team. MMODL / IJN: [id number] /
[2017-12-22 12:04] VITALS: BP 111/59; PULSE 62; TEMP 98
--- NOTE | 2017-12-22 13:08 | ECHOF ---
Referral Reason:chest pain MEASUREMENTS -------- HEIGHT: 132.1 cm WEIGHT: 81.2 kg BP: IVSd: 1.1 cm (0.6 - 1.1) LVIDd: 4.1 cm (3.9 - 5.3) LVPWd: 1.3 cm (0.6 - 1.1) IVSs: 1.4 cm LVIDs: 2.6 cm LVPWs: 1.9 cm RVIDd: 3.3 cm (< 3.3) LAESV Index (A-L): 29.87 ml/m Ao Diam: 2.7 cm (2.0 - 3.7) LA Diam: 3.9 cm (2.7 - 3.8) AV Cusp: 1.3 cm (1.5 - 2.6) MV E Rony: 0.56 m/s MV DecT: 198 ms MV A Rony: 0.62 m/s MV E/A Ratio: 0.89 RAP: 5.00 mmHg RVSP: 10.74 mmHg %FS: 0.00 % IVSd: 4.16 cm (0.6 - 1.1) FINDINGS -------- Sinus rhythm. This was a techncally difficult study with suboptimal views, , Lumason utilized for enhancement of im ages. LV size, wall thickness and systolic function are normal, with an EF greater than 55%. The left stephane tricular size is normal. The right ventricle is mildly enlarged. The left atrial size is normal. LA is midly dilated 29-33ml/m2. The right atrial size is normal. 5.0mg OF Lumason UTLIZED: 2 OR MORE WALL SEGMENTS NOT VISUALIZED. There is mild aortic valve sclerosis. There is no evidence of aortic regurgitation. Mild mitral annular calcification present. Mild mitral regurgitation is present. Mild tricuspid regurgitation present. There is no evidence of pulmonary hypertension. The right v entricular systolic pressure, as measured by Doppler, is 10.74mmHg. The pulmonic valve was not well visualized. The aortic root size is normal. There is no pericardial effusion. CONCLUSIONS -------- 1. This was a techncally difficult study with suboptimal views, , Lumason utilized for enhancement of images. 2. LV size, wall thickness and systolic function are normal, with an EF greater than 55%. 3. The left ventricular size is normal. 4. The right ventricle is mildly enlarged. 5. The left atrial size is normal. 6. LA is midly dilated 29-33ml/m2. 7. The right atrial size is normal. 8. 5.0mg OF Lumason UTLIZED: 2 OR MORE WALL SEGMENTS NOT VISUALIZED. 9. There is mild aortic valve sclerosis. 10. Mild mitral annular calcification present. 11. Mild mitral regurgitation is present. 12. Mild tricuspid regurgitation present. 13. There is no evidence of pulmonary hypertension. 14. The right ventricular systolic pressure, as measured by Doppler, is 10.74mmHg. 15. The pulmonic valve was not well visualized. 16. The aortic root size is normal. 17. There is no pericardial effusion. WAX PATTERN REPAIRER: Mary Aaron RDCS
--- NOTE | 2017-12-22 13:14 | PN ---
PROGRESS NOTE DATE OF SERVICE: 12/22/2017. She has been hemodynamically stable. Her pain is under better control. She was seen by Cardiology and echocardiogram is pending. On physical examination vital is stable. She is afebrile. Chest is clear. Cardiovascular system reveals a S1, S2. Abdomen is soft. There is no edema. IMPRESSION: At this time: 1. Status post hernia surgery with abdominal pain, which is postsurgical. 2. Chronic obstructive pulmonary disease, baseline. 3. History of deep venous thrombosis. 4. History of coronary artery disease with previous stent placement. Await echo. Increase her activity level, keep her pain under control. Discharge planned for later today if she is otherwise stable is appropriate. MMODL / IJN: [id number] /
== END 2017-12-22 14:40 | disposition home or self-care (01) ==
LOC: EC 10:24 → 3OBS 13:49 → 3SUR 18:46
PROVIDERS: ADMIT Internal Medicine Sleep Medicine; ATTEND Internal Medicine Sleep Medicine
DX: R07.9 Chest pain, unspecified (principal); G89.18 Other acute postprocedural pain; R10.9 Unspecified abdominal pain; J44.9 Chronic obstructive pulmonary disease, unspecified; I10 Essential (primary) hypertension; K59.00 Constipation, unspecified; I25.10 Atherosclerotic heart disease of native coronary artery without angina pectoris; E11.9 Type 2 diabetes mellitus without complications; H61.21 Impacted cerumen, right ear; E78.5 Hyperlipidemia, unspecified; K21.9 Gastro-esophageal reflux disease without esophagitis; M79.7 Fibromyalgia; M19.90 Unspecified osteoarthritis, unspecified site; F41.0 Panic disorder [episodic paroxysmal anxiety]; K57.90 Diverticulosis of intestine, part unspecified, without perforation or abscess without bleeding; L71.9 Rosacea, unspecified; Z95.5 Presence of coronary angioplasty implant and graft; Z79.84 Long term (current) use of oral hypoglycemic drugs; Z79.1 Long term (current) use of non-steroidal anti-inflammatories (NSAID); Z79.02 Long term (current) use of antithrombotics/antiplatelets; Z79.82 Long term (current) use of aspirin; Z79.899 Other long term (current) drug therapy; Z88.5 Allergy status to narcotic agent; Z86.718 Personal history of other venous thrombosis and embolism; Z87.442 Personal history of urinary calculi; Z87.01 Personal history of pneumonia (recurrent); Z87.891 Personal history of nicotine dependence; Z80.9 Family history of malignant neoplasm, unspecified; Z82.49 Family history of ischemic heart disease and other diseases of the circulatory system
CPT/HCPCS: 96374 ×2; 99285 ×2; 69209 ×2; 96376 ×2; 96375; 93005 ×2; 36415; 94640; 80061; 80053 ×2; 82150; 82550; 82553; 83690; 84484; 85025 ×2; 85610; 85730; 81003; 71275; 74177; G0378 ×3; C8929; J2270 ×2; C9113 ×2; Q9950; Q9967; 93306

== ENCOUNTER 2018-01-07 15:50 | Emergency (ER) | payer MEDICARE ==
[2018-01-07 15:59] VITALS: PULSE 70; RESP 20
--- NOTE | 2018-01-07 16:07 | ED ---
Fall HPI - General Chief Complaint: Fall Stated Complaint: Fall Time Seen by Provider: 01/07/18 15:54 Source: patient, RN notes reviewed Mode of arrival: ambulatory Limitations: no limitations - History of Present Illness Initial Comments: 62-year-old female presents emergency Department chief complaint trip and fall. Patient states she tripped over a pothole and states that she fell onto her left side striking her left elbow and left knee. She does have an abrasion to her left knee but states she is up-to-date on her tetanus. Patient states that there is no head injury no loss conscious. Denies any neck, back, hip pain. She states that she had surgery approximately 3 weeks ago on her abdomen for incisional hernia. Patient states that she still has pain but has not worsened and then. Patient denies any nausea vomiting diarrhea constipation. Denies any chest pain or shortness breath patient denies syncopal episode or loss conscious. - Related Data Home Medications Medication Instructions Recorded Confirmed Aspirin 81 mg PO DAILY 02/20/14 12/21/17 Atenolol/Chlorthalidone [Tenoretic 1 tab PO DAILY 02/20/14 12/21/17 50 Tablet] Montelukast [Singulair] 10 mg PO DAILY 02/20/14 12/21/17 Omeprazole 40 mg PO DAILY 02/20/14 12/21/17 clonazePAM [Clonazepam] 1 mg PO TID 02/20/14 12/21/17 Calcium Carbonate/Vitamin D3 1 tab PO DAILY 07/14/14 12/21/17 [Calcium 600-Vit D3 400 Tablet] Linaclotide [Linzess] 145 mcg PO DAILY PRN 07/14/14 12/21/17 Clopidogrel [Plavix] 75 mg PO DAILY 09/14/16 12/21/17 HYDROcodone/APAP 7.5-325MG [[place] 1 tab PO Q4H PRN 09/14/16 12/21/17 7.5-325] Potassium Chloride [K-Tab ER] 10 meq PO DAILY 09/14/16 12/21/17 amLODIPine [Norvasc] 5 mg PO DAILY 09/14/16 12/21/17 Ipratropium-Albuterol Nebulize 3 ml INHALATION QID PRN 01/10/17 12/21/17 [Duoneb 0.5 mg-3 mg/3 ml Soln] Rosuvastatin Calcium [Crestor] 40 mg PO DAILY 01/10/17 12/21/17 Tiotropium Br/Olodaterol HCl 1 spray INHALATION DAILY 01/10/17 12/21/17 [Stiolto Respimat Inhal [place]] Meloxicam [Mobic] 7.5 mg PO DAILY 12/12/17 12/21/17 metFORMIN HCL [Glucophage] 500 mg PO DAILY 12/12/17 12/21/17 Previous Rx's Medication Instructions Recorded Acetaminophen-Codeine 300-30mg 1 tab PO Q4H PRN 3 Days #18 tablet 12/18/17 [Tylenol w/codeine #3] Allergies Allergy/AdvReac Type Severity Reaction Status Date / Time hydrocodone bitartrate AdvReac Nausea & Verified 12/21/17 11:07 [From Vicodin] Vomiting propoxyphene napsylate AdvReac Nausea & Verified 12/21/17 11:07 [From Darvocet-N 100] Vomiting Review of Systems ROS Statement: Those systems with pertinent positive or pertinent negative responses have been documented in the HPI. ROS Other: All systems not noted in ROS Statement are negative. Past Medical History Past Medical History: COPD, Deep Vein Thrombosis (DVT), Fibromyalgia, GERD/ Reflux, Hyperlipidemia, Hypertension, Osteoarthritis (OA), Skin Disorder Additional Past Medical History / Comment(s): DIVERTICULITIS, HX KIDNEY STONE- still has it but it's never moved , Pneumonia, ROSACEA, DVT RLE 2007,gerson cataracats History of Any Multi-Drug Resistant Organisms: None Reported Past Surgical History: Appendectomy, Bowel Resection, Heart Catheterization With Stent, Hernia Repair, Tubal Ligation Additional Past Surgical History / Comment(s): COLONOSCOPY, PARTIAL LT LOBECTOMY -(pt stated they thought i might of had tb but it was just scar tissue), D & C , 07-17-14 BOWEL RESECTION, HEART CATH W 2 STENTS AT [facility] [place] 11-15-15 , 12-18-17 lap robotic assisted repair of inc hernia Past Anesthesia/Blood Transfusion Reactions: No Reported Reaction Date of Last Stent Placement:: 11-15-15 AT [facility] [place] Past Psychological History: Anxiety, Panic Disorder Smoking Status: Former smoker Past Alcohol Use History: Occasional Past Drug Use History: None Reported - Past Family History Mother Family Medical History: Congestive Heart Failure (CHF) Father Family Medical History: Cancer Additional Family Medical History / Comment(s): TYPE OF CANCER NOT KNOWN General Exam Limitations: no limitations General appearance: alert, in no apparent distress Head exam: Present: atraumatic, normocephalic, normal inspection Eye exam: Present: normal appearance, PERRL, EOMI. Absent: scleral icterus, conjunctival injection, periorbital swelling ENT exam: Present: normal exam, normal oropharynx, mucous membranes moist Neck exam: Present: normal inspection, full ROM. Absent: tenderness, meningismus, lymphadenopathy Respiratory exam: Present: normal lung sounds bilaterally. Absent: respiratory distress, wheezes, rales, rhonchi, stridor, chest wall tenderness Cardiovascular Exam: Present: regular rate, normal rhythm, normal heart sounds. Absent: systolic murmur, diastolic murmur, rubs, gallop, clicks GI/Abdominal exam: Present: soft, normal bowel sounds, other (Incisions well- healed). Absent: distended, tenderness, guarding, rebound, rigid Extremities exam: Present: other (Left elbow patient has pain with range of motion though full range of motion, left arm neurovascular intact there is moderate tenderness along the elbow more towards the humeral aspect, left knee there is a small abrasion over the anterior surface patient's full range of motion mild tenderness with palpation leg is neurovascularly intact remaining extremity exam within normal limits) Back exam: Present: full ROM. Absent: tenderness, paraspinal tenderness, vertebral tenderness Neurological exam: Present: alert, oriented X3, CN II-XII intact, reflexes normal. Absent: motor sensory deficit Skin exam: Present: warm, dry, intact, normal color. Absent: rash Course Vital Signs 01/07/18 01/07/18 15:54 17:02 Temperature 96.6 F L 97.1 F L Pulse Rate 70 70 Respiratory 20 20 Rate Blood Pressure 132/66 128/64 O2 Sat by Pulse 96 97 Oximetry Medical Decision Making - Medical Decision Making 62-year-old female presented for fall. Patient had x-rays of her left knee, left elbow show no acute fracture. Patient has an abrasion contusion to her left knee along with her contusion to her left elbow. Patient will continue pain medication as directed at home and she'll provide ice 20 minutes at time. Disposition Clinical Impression: Fall, Abrasion, left knee, initial encounter, Contusion of left knee, Left elbow contusion Disposition: HOME SELF-CARE Instructions: Contusion in Adults (ED) Additional Instructions: Please return to the Emergency Department if symptoms worsen or any other concerns. Is patient prescribed a controlled substance at d/c from ED?: No Referrals: Gregorio Garber MD [Primary Care Provider] - 1-2 days Time of Disposition: 17:03
--- NOTE | 2018-01-07 16:51 | XR ---
EXAMINATION TYPE: XR knee complete LT DATE OF EXAM: 01/07/2018 COMPARISON: 09/19/2017 HISTORY: Knee pain TECHNIQUE: 3 views FINDINGS: I see no fracture nor dislocation. Joint spaces are fairly normal. There is mild spurring o f the medial tibial condyle. IMPRESSION: Mild spurring. No fracture seen. No change.
[2018-01-07 17:03] VITALS: BP 128/64; TEMP 97.1
--- NOTE | 2018-01-07 17:21 | XR ---
EXAMINATION TYPE: XR elbow complete LT DATE OF EXAM: 01/07/2018 COMPARISON: NONE HISTORY: Pain after falling TECHNIQUE: 3 views FINDINGS: I see no fracture nor dislocation. Joint spaces are normal. There is no sign of elbow joint effusion. IMPRESSION: Negative left elbow exam
== END 2018-01-07 17:38 | disposition home or self-care (01) ==
LOC: EC 15:50
DX: S80.02XA Contusion of left knee, initial encounter (principal); S50.02XA Contusion of left elbow, initial encounter; J44.9 Chronic obstructive pulmonary disease, unspecified; M79.7 Fibromyalgia; K21.9 Gastro-esophageal reflux disease without esophagitis; E78.5 Hyperlipidemia, unspecified; I10 Essential (primary) hypertension; F41.9 Anxiety disorder, unspecified; M19.90 Unspecified osteoarthritis, unspecified site; Z87.891 Personal history of nicotine dependence; Z86.718 Personal history of other venous thrombosis and embolism; Z90.49 Acquired absence of other specified parts of digestive tract; Z95.5 Presence of coronary angioplasty implant and graft; Z98.890 Other specified postprocedural states; Z79.02 Long term (current) use of antithrombotics/antiplatelets; Z79.1 Long term (current) use of non-steroidal anti-inflammatories (NSAID); Z79.82 Long term (current) use of aspirin; Z79.899 Other long term (current) drug therapy; Z88.5 Allergy status to narcotic agent; W01.198A Fall on same level from slipping, tripping and stumbling with subsequent striking against other object, initial encounter; Y92.524 Gas station as the place of occurrence of the external cause; Y93.01 Activity, walking, marching and hiking
CPT/HCPCS: 99283

== ENCOUNTER 2019-04-20 10:13 | Emergency (ER) | payer MEDICARE ==
[2019-04-20 10:18] VITALS: RESP 18; TEMP 98
[2019-04-20] MEDS ORDERED: KETOROLAC 30 MG/ML 1 ML VIAL IM STA (10:50)
--- NOTE | 2019-04-20 10:50 | ED ---
Fall HPI - General Chief Complaint: Fall Stated Complaint: Fall Time Seen by Provider: 04/20/19 10:21 Source: patient Mode of arrival: wheelchair - History of Present Illness Initial Comments: Patient is a 63-year-old female presenting to the emergency department with a chief complaint of fall. Patient reports she woke up this morning without realizing that she was close to the edge of the bed and rolled over falling on the floor. Patient reports there was no objects in the floor, only the carpet. Patient denies loss of consciousness at time of incident. Patient reports her bed is over 3 feet high. Patient reports she has pain on the right flank region along with some pain in the lateral right breast. Patient reports she is not on blood thinners for over a year. Patient is also complaining of constipation. Patient states that she has not been having any bowel movements for the past 3 days. Patient reports she takes a laxative with minimal improvement. Patient denies any nausea or vomiting or diarrhea. Patient reports she is eating and drinking without issues. Patient denies any fevers or chills. Patient has any chest pain, shortness of breath, headaches or back pain. - Related Data Home Medications Medication Instructions Recorded Confirmed Aspirin 81 mg PO DAILY 02/20/14 12/21/17 Atenolol/Chlorthalidone [Tenoretic 1 tab PO DAILY 02/20/14 12/21/17 50 Tablet] Montelukast [Singulair] 10 mg PO DAILY 02/20/14 12/21/17 Omeprazole 40 mg PO DAILY 02/20/14 12/21/17 clonazePAM [Clonazepam] 1 mg PO TID 02/20/14 12/21/17 Calcium Carbonate/Vitamin D3 1 tab PO DAILY 07/14/14 12/21/17 [Calcium 600-Vit D3 400 Tablet] Linaclotide [Linzess] 145 mcg PO DAILY PRN 07/14/14 12/21/17 Clopidogrel [Plavix] 75 mg PO DAILY 09/14/16 12/21/17 HYDROcodone/APAP 7.5-325MG [[place] 1 tab PO Q4H PRN 09/14/16 12/21/17 7.5-325] Potassium Chloride [K-Tab ER] 10 meq PO DAILY 09/14/16 12/21/17 amLODIPine [Norvasc] 5 mg PO DAILY 09/14/16 12/21/17 Ipratropium-Albuterol Nebulize 3 ml INHALATION QID PRN 01/10/17 12/21/17 [Duoneb 0.5 mg-3 mg/3 ml Soln] Rosuvastatin Calcium [Crestor] 40 mg PO DAILY 01/10/17 12/21/17 Tiotropium Br/Olodaterol HCl 1 spray INHALATION DAILY 01/10/17 12/21/17 [Stiolto Respimat Inhal [place]] Meloxicam [Mobic] 7.5 mg PO DAILY 12/12/17 12/21/17 metFORMIN HCL [Glucophage] 500 mg PO DAILY 12/12/17 12/21/17 Previous Rx's Medication Instructions Recorded Acetaminophen-Codeine 300-30mg 1 tab PO Q4H PRN 3 Days #18 tablet 12/18/17 [Tylenol w/codeine #3] Acetaminophen Tab [Tylenol Tab] 500 mg PO Q4H #20 tablet 04/20/19 Cyclobenzaprine [Flexeril] 5 mg PO TID PRN #15 tablet 04/20/19 Ibuprofen 600 mg PO Q6HR #20 tablet 04/20/19 Allergies Allergy/AdvReac Type Severity Reaction Status Date / Time hydrocodone bitartrate AdvReac Nausea & Verified 06/07/18 14:25 [From Vicodin] Vomiting propoxyphene napsylate AdvReac Nausea & Verified 06/07/18 14:25 [From Darvocet-N 100] Vomiting Review of Systems ROS Statement: Those systems with pertinent positive or pertinent negative responses have been documented in the HPI. ROS Other: All systems not noted in ROS Statement are negative. Past Medical History Past Medical History: COPD, Deep Vein Thrombosis (DVT), Fibromyalgia, GERD/Reflux, Hyperlipidemia, Hypertension, Osteoarthritis (OA), Skin Disorder Additional Past Medical History / Comment(s): DIVERTICULITIS, HX KIDNEY STONE- still has it but it's never moved , Pneumonia, ROSACEA, DVT RLE 2007,gerson cataracts History of Any Multi-Drug Resistant Organisms: None Reported Past Surgical History: Appendectomy, Bowel Resection, Heart Catheterization With Stent, Hernia Repair, Tubal Ligation Additional Past Surgical History / Comment(s): COLONOSCOPY, PARTIAL LT LOBECTOMY-(pt stated they thought i might of had tb but it was just scar tissue), D & C, 1-9-15 BOWEL RESECTION[place] [facility] [place] 12-18[place]17 lap robotic assisted repair of inc hernia Past Anesthesia/Blood Transfusion Reactions: No Reported Reaction Date of Last Stent Placement:: 11[place]15[place] [facility] [place] Past Psychological History: Anxiety, Panic Disorder Smoking Status: Former smoker Past Alcohol Use History: Occasional Past Drug Use History: None Reported - Past Family History Mother Family Medical History: Congestive Heart Failure (CHF) Father Family Medical History: Cancer Additional Family Medical History / Comment(s): TYPE OF CANCER NOT KNOWN General Exam Limitations: no limitations General appearance: alert, in no apparent distress Head exam: Present: atraumatic, normocephalic, normal inspection Eye exam: Present: normal appearance Pupils: Present: normal accommodation ENT exam: Present: normal exam, mucous membranes moist, normal external ear exam Neck exam: Present: normal inspection, full ROM Respiratory exam: Present: normal lung sounds bilaterally Cardiovascular Exam: Present: regular rate, normal rhythm, normal heart sounds GI/Abdominal exam: Present: soft, tenderness (Right flank tenderness. No ecchymosis, abrasions or lacerations.) Extremities exam: Present: normal inspection, full ROM Back exam: Present: normal inspection, full ROM, CVA tenderness (R) Neurological exam: Present: alert, oriented X3 Psychiatric exam: Present: normal affect, normal mood Skin exam: Present: warm, intact, normal color Course Vital Signs 04/20/19 04/20/19 10:15 12:37 Temperature 98.0 F 98.0 F Pulse Rate 87 73 Respiratory 18 18 Rate Blood Pressure 219/82 136/79 O2 Sat by Pulse 97 95 Oximetry Medical Decision Making - Medical Decision Making Patient is a 63-year-old male presenting to the emergency department with a chief complaint of fall. Patient reports she will out of bed and injured the right flank region. Patient reports the pain is exacerbated with twisting of the torso. On physical examination there does not appear to be any ecchymosis abrasions or lacerations the region. Chest x-ray of the ribs is negative for acute fractures or dislocations. KUB was also the obtain because the patient was complaining of occasional constipation due to multiple abdominal surgeries. KUB is indicative of a nonobstructive bowel gas pattern. Patient reports she takes laxatives at home with minimal improvement. Patient given magnesium citrate advised to take half the dose initially. Strict return parameters were thoroughly discussed with patient is understanding and agreeable. Patient advised to alternate between Tylenol and ibuprofen for pain control. Case discussed with physician. Disposition Clinical Impression: Fall, Contusion of rib on right side Disposition: HOME SELF-CARE Condition: Stable Instructions (If sedation given, give patient instructions): Fall Prevention (ED) Additional Instructions: Please take prescribed medication as directed. Please follow with primary care. Please return to emergency department symptoms worsen. Prescriptions: Cyclobenzaprine [Flexeril] 5 mg PO TID PRN #15 tablet PRN Reason: Muscle Spasm Ibuprofen 600 mg PO Q6HR #20 tablet Acetaminophen Tab [Tylenol Tab] 500 mg PO Q4H #20 tablet Is patient prescribed a controlled substance at d/c from ED?: No Referrals: Gregorio Garber MD [Primary Care Provider] - 1-2 days Time of Disposition: 12:19
--- NOTE | 2019-04-20 11:16 | XR ---
EXAMINATION TYPE: XR KUB , 2 VIEWS DATE OF EXAM ORDERED: 04/20/2019 HISTORY: constipation, fall. COMPARISON: None. FINDINGS: Surgical sutures project over the left hemithorax. The heart is mildly enlarged. Within the abdomen, the abdominal gas pattern is within normal limits. There is no evidence of obstru ction or free air. No unusual calcifications are seen. There is a mild dextroscoliosis. IMPRESSION: NONOBSTRUCTIVE BOWEL GAS PATTERN.
--- NOTE | 2019-04-20 11:18 | XR ---
EXAMINATION TYPE: XR ribs RT w pa chest xray , 5 VIEWS DATE OF EXAM ORDERED: 04/20/2019 HISTORY: fall. COMPARISON: Previous study dated 09/14/2016. FINDINGS: The lungs are clear. Heart size upper limits of normal. No pneumothorax is seen. There is blunting of the left CP angle. I could not exclude a small left effusion. No displaced rib fracture i s seen. IMPRESSION: 1. NO DISPLACED RIB FRACTURE IS SEEN AT THIS TIME. 2. BORDERLINE CARDIOMEGALY. 3. I COULD NOT EXCLUDE A SMALL LEFT EFFUSION.
[2019-04-20] MEDS ORDERED: MAGNESIUM CITRATE 296 ML BOTTLE PO ONE (12:19)
[2019-04-20 12:39] VITALS: BP 136/79; PULSE 73
== END 2019-04-20 12:37 | disposition home or self-care (01) ==
LOC: EC 10:13
DX: S20.211A Contusion of right front wall of thorax, initial encounter (principal); K59.00 Constipation, unspecified; J44.9 Chronic obstructive pulmonary disease, unspecified; M79.7 Fibromyalgia; K21.9 Gastro-esophageal reflux disease without esophagitis; I10 Essential (primary) hypertension; M19.90 Unspecified osteoarthritis, unspecified site; E78.5 Hyperlipidemia, unspecified; F41.0 Panic disorder [episodic paroxysmal anxiety]; Z79.02 Long term (current) use of antithrombotics/antiplatelets; Z79.82 Long term (current) use of aspirin; Z79.51 Long term (current) use of inhaled steroids; Z79.1 Long term (current) use of non-steroidal anti-inflammatories (NSAID); Z79.84 Long term (current) use of oral hypoglycemic drugs; Z79.899 Other long term (current) drug therapy; Z88.5 Allergy status to narcotic agent; Z87.891 Personal history of nicotine dependence; Z87.442 Personal history of urinary calculi; Z86.718 Personal history of other venous thrombosis and embolism; Z95.5 Presence of coronary angioplasty implant and graft; Z90.49 Acquired absence of other specified parts of digestive tract; Z98.890 Other specified postprocedural states; W06.XXXA Fall from bed, initial encounter; Y93.89 Activity, other specified; Y92.003 Bedroom of unspecified non-institutional (private) residence as the place of occurrence of the external cause
CPT/HCPCS: 71101; 74018; 96372; 99283; J1885

== ENCOUNTER → 2019-05-02 | Outpatient (CLI) | payer MEDICARE ==
--- NOTE | 2019-05-02 09:05 | CT ---
EXAMINATION TYPE: CT chest wo con DATE OF EXAM: 05/02/2019 COMPARISON: 12/21/2017 HISTORY: Rt sided rib pain post fall CT DLP: [address] of the chest was performed with lung and mediastinal window settings submitted. The la ck of contrast limits evaluation of the vascular, mediastinal and parenchymal structures including th e upper abdomen. LUNGS: Paraseptal emphysema and subpleural reticulation the patient could reflect early fibrotic guajardo ges redemonstrated. No atelectasis. No pulmonary nodule or mass is detected. No pleural effusion. No CT evidence of interstitial lung disease. MEDIASTINUM/JM: Thoracic aorta is of normal caliber with limited evaluation given lack of contrast . The heart is enlarged. Coronary artery calcifications redemonstrated. No evidence for mediastinal mass. No lymph nodes greater than 1cm. UPPER ABDOMEN: No significant abnormality is seen. OTHER: No significant other abnormality. IMPRESSION: 1. Septal emphysema. 2. Mild subpleural fibrosis. 3. Remote granulomatous disease.
== END | disposition home or self-care (01) ==
LOC: RADCTMAIN 08:07
PROVIDERS: ATTEND Family Medicine
DX: J43.8 Other emphysema (principal); J84.10 Pulmonary fibrosis, unspecified; D71 Functional disorders of polymorphonuclear neutrophils
CPT/HCPCS: 71250

== ENCOUNTER 2020-01-27 14:48 | Observation (INO) | payer MEDICARE ==
[2020-01-27] MEDS ORDERED: HYDROcodone/APAP 7.5-325MG 1 EACH TAB PO PRN (16:22)
[2020-01-27] MEDS ORDERED: CYCLOBENZAPRINE 5 MG TAB PO PRN (16:22)
[2020-01-27] MEDS ORDERED: IPRATROPIUM-ALBUTEROL 3 ML NEB INHALATION PRN (16:22)
[2020-01-27] MEDS ORDERED: Acetaminophen-Codeine 300-30mg TAB PO PRN (16:22)
[2020-01-27 16:44] LABS: Basophils # (A) 0.1 k/uL (0-0.2); Basophils % (A) 0 %; Eosinophils # (A) 0.2 k/uL (0-0.7); Eosinophils % (A) 2 %; HCT 41.2 % (34.0-46.0); HGB 14.1 gm/dL (11.4-16.0); Lymphocytes # (A) 1.2 k/uL (1.0-4.8); Lymphocytes % (A) 10 %; MCH 32.3 pg (25.0-35.0); MCHC 34.2 g/dL (31.0-37.0); MCV 94.6 fL (80.0-100.0); Mean Platelet Volume 7.2; Monocytes # (A) 0.7 k/uL (0-1.0); Monocytes % (A) 6 %; Neutrophils # (A) 9.4 k/uL (1.3-7.7); Neutrophils % (A) 80 %; Platelet Count 340 k/uL (150-450); RBC 4.35 m/uL (3.80-5.40); WBC 11.8 k/uL (3.8-10.6)
[2020-01-27 16:51] LABS: Albumin 4.2 g/dL (3.5-5.0); Calcium 9.1 mg/dL (8.4-10.2); Total Bilirubin 0.7 mg/dL (0.2-1.3); Total Protein 7.3 g/dL (6.3-8.2)
[2020-01-27] MEDS: ACETAMINOPHEN TAB 500 MG TAB PO SCH ×3 (16:55→23:25)
[2020-01-27] MEDS: methylPREDNISolone SOD SUCCI 40 MG/ML 1 ML VIAL IV SCH ×2 (17:07→23:25)
--- NOTE | 2020-01-27 17:25 | XR ---
EXAMINATION TYPE: XR chest 2V DATE OF EXAM: 01/27/2020 COMPARISON: 04/20/2019 HISTORY: Short of breath TECHNIQUE: 2 views FINDINGS: There is coarse interstitial density in the lungs. There is no gross heart failure. I see n o pleural effusion. There are no hilar masses. IMPRESSION: Coarse lung markings of the same or slightly increased compared to old exam and could rel ate to mild fibrosis. No heart failure seen.
[2020-01-27] MEDS ORDERED: Potassium Replacement Protocol 1 EACH MISC MISCELLANE PRN (18:53)
[2020-01-27 19:35] LABS: Appearance,Urine Clear (Clear); Bacteria,Urine Occasional /hpf; Bilirubin,Urine Negative (Negative); Blood,Urine Trace (Negative); Color,Urine Yellow; Glucose,Urine (UA) Negative (Negative); Hyaline Casts,Urine 12 /lpf (0-2); Ketones,Urine Negative (Negative); Leukocyte Esterase,Urine Negative (Negative); Mucus,Urine Rare /hpf; Nitrite,Urine Negative (Negative); Protein,Urine 1+ (Negative); RBC,Urine 2 /hpf (0-5); Specific Gravity,Urine 1.015 (1.001-1.035); Squamous Epithelial Cell,Urine 4 /hpf (0-4); Urobilinogen,Urine <2.0 mg/dL (<2.0); WBC,Urine 5 /hpf (0-5)
[2020-01-27] MEDS: clonazePAM 1 MG TAB PO SCH (20:20)
[2020-01-27] MEDS: POTASSIUM CHLORIDE ER 20 MEQ TAB.ER PO SCH ×2 (20:20→21:21)
[2020-01-28 01:28] LABS: Hemoglobin A1C 7.2 % (4.0-6.0)
[2020-01-28] MEDS: ACETAMINOPHEN TAB 500 MG TAB PO SCH ×6 (04:58→23:45)
[2020-01-28 05:50] LABS: Basophils % (A) 0 %; Eosinophils # (A) 0.1 k/uL (0-0.7); Eosinophils % (A) 1 %; HCT 43.2 % (34.0-46.0); HGB 14.2 gm/dL (11.4-16.0); Lymphocytes # (A) 0.5 k/uL (1.0-4.8); Lymphocytes % (A) 5 %; MCH 32.6 pg (25.0-35.0); MCHC 32.9 g/dL (31.0-37.0); MCV 98.8 fL (80.0-100.0); Mean Platelet Volume 7.4; Monocytes # (A) 0.1 k/uL (0-1.0); Monocytes % (A) 1 %; Neutrophils % (A) 93 %; Platelet Count 292 k/uL (150-450); RBC 4.37 m/uL (3.80-5.40); WBC 10.7 k/uL (3.8-10.6)
[2020-01-28 05:56] LABS: Albumin 4.1 g/dL (3.5-5.0); Potassium 4.1 mmol/L (3.5-5.1); Total Bilirubin 0.6 mg/dL (0.2-1.3); Total Protein 7.3 g/dL (6.3-8.2)
[2020-01-28 06:37] LABS: Glucose,Whole Blood 309 mg/dL (75-99)
[2020-01-28] MEDS: CHLORTHALIDONE 25 MG TAB PO SCH (08:14)
[2020-01-28] MEDS: atenoloL 50 MG TAB PO SCH (08:14)
[2020-01-28] MEDS: POTASSIUM CHLORIDE ER 10 MEQ TAB.ER.PRT PO SCH (08:15)
[2020-01-28] MEDS: ASPIRIN 81 MG PO SCH (08:15)
[2020-01-28] MEDS: CLOPIDOGREL 75 MG TAB PO SCH (08:15)
[2020-01-28] MEDS: amLODIPine 5 MG TAB PO SCH (08:15)
[2020-01-28] MEDS: ATORVASTATIN 80 MG TAB PO SCH (08:15)
[2020-01-28] MEDS: clonazePAM 1 MG TAB PO SCH ×3 (08:15→21:06)
[2020-01-28] MEDS: methylPREDNISolone SOD SUCCI 40 MG/ML 1 ML VIAL IV SCH ×3 (08:15→23:46)
[2020-01-28] MEDS: MONTELUKAST 10 MG TAB PO SCH (08:15)
[2020-01-28] MEDS: PANTOPRAZOLE 40 MG TABLET PO SCH (08:15)
[2020-01-28] MEDS: INSULIN ASPART (NovoLOG) 100 UNIT/ML VIAL SQ SCH ×6 (08:15→21:07)
--- NOTE | 2020-01-28 10:31 | ECHOF ---
Referral Reason:dyspnea MEASUREMENTS -------- HEIGHT: 147.3 cm WEIGHT: 76.7 kg BP: 134/62 RVIDd: 2.8 cm (< 3.3) IVSd: 1.5 cm (0.6 - 1.1) LVIDd: 3.8 cm (3.9 - 5.3) LVPWd: 1.3 cm (0.6 - 1.1) IVSs: 1.6 cm LVIDs: 2.7 cm LVPWs: 1.7 cm LAESV Index (A-L): 35.71 ml/m Ao Diam: 2.1 cm (2.0 - 3.7) AV Cusp: 1.8 cm (1.5 - 2.6) MV EXCURSION: 13.946 mm (> 18.000) MV EF SLOPE: 106 mm/s (70 - 150) EPSS: 0.5 cm MV E Rony: 1.12 m/s MV DecT: 160 ms MV A Rony: 0.89 m/s MV E/A Ratio: 1.26 RAP: 5.00 mmHg RVSP: 44.45 mmHg FINDINGS -------- This was a technically difficult study with suboptimal views. The left ventricular size is normal. There is moderate concentric left ventricular hypertrophy. O verall left ventricular systolic function is normal with, an EF between 55 - 60 %. The diastolic fi lling pattern is normal for the age of the patient 14.05. The right ventricle is normal in size. LA is moderately dilated 34-39 ml/m2 The right atrium was not well visualized. 5.0mg of Lumason was utilized for enhancement of images Interatrial and interventricular septum intact. The aortic valve is trileaflet and appears structurally normal. There is no evidence of aortic regu rgitation. There is no evidence of aortic stenosis. Mild mitral annular calcification present. Ywgb-jc-xtcmffjr mitral regurgitation is present. Mzsy-kz-jxnyxrxf tricuspid regurgitation present. There is mild to moderate pulmonary hypertension. The right ventricular systolic pressure, as measured by Doppler, is 44.45mmHg. There is no pulmonic regurgitation present. The aortic root size is normal. IVC Not well visulized. There is no pericardial effusion. CONCLUSIONS -------- 1. The left ventricular size is normal. 2. There is moderate concentric left ventricular hypertrophy. 3. Overall left ventricular systolic function is normal with, an EF between 55 - 60 %. 4. The diastolic filling pattern is normal for the age of the patient 14.05 5. LA is moderately dilated 34-39 ml/m2 6. Mild mitral annular calcification present. 7. Cqua-vd-rxhdepsi mitral regurgitation is present. 8. Ytfu-wb-oncqbfnk tricuspid regurgitation present. 9. There is mild to moderate pulmonary hypertension. 10. The right ventricular systolic pressure, as measured by Doppler, is 44.45mmHg. LINEMARKER: Andie Coffey RDCS
[2020-01-28] MEDS ORDERED: DOBUTamine DRIP for NUC MED 500 MG in DEXTROSE/WATER 1 250ML.BAG IV ONE (11:04)
[2020-01-28 12:00] LABS: Glucose,Whole Blood 284 mg/dL (75-99)
[2020-01-28] MEDS: INSULIN DETEMIR (LEVEMIR) 100 UNIT/ML SYR SQ SCH (12:05)
--- NOTE | 2020-01-28 12:11 | P.CRDCN ---
History of Present Illness Consult date: 01/28/20 History of present illness: This is a 64-year-old female with history of known coronary artery disease with angioplasty of the PDA and several years ago, hypertension and hyperlipidemia and also moderate carotid stenosis who is admitted now with complaining of increasing exertional shortness of breath and also discomfort in the legs upon exertion. She thinks the shortness of breath is getting progressively worse. Denies any chest pain, orthopnea or paroxysmal dyspnea. No complaints of any palpitations. No pedal edema. Her EKG did not reveal any acute changes. Her cardiac enzymes are negative. Her proBNP is close to normal. However chest x- ray showed evidence of progression of the pulmonary fibrosis which seemed to be chronic problem. Clinically she doesn't have any JVD. It appears that his symptoms could be related to motor vehicle pulmonary fibrosis. We'll also check her arterial studies to make sure patient doesn't have significant peripheral vascular disease. We'll we'll schedule her tentatively for dobutamine echo to rule out any progression of ischemic heart disease. Further recommendations depend upon the clinical course Review of Systems As per the chart Past Medical History Past Medical History: COPD, Deep Vein Thrombosis (DVT), Fibromyalgia, GERD/Reflux, Hyperlipidemia, Hypertension, Osteoarthritis (OA), Skin Disorder Additional Past Medical History / Comment(s): DIVERTICULITIS, HX KIDNEY STONE- still has it but it's never moved , Pneumonia, ROSACEA, DVT RLE 2007,gerson cataracts History of Any Multi-Drug Resistant Organisms: None Reported Past Surgical History: Appendectomy, Bowel Resection, Heart Catheterization With Stent, Hernia Repair, Tubal Ligation Additional Past Surgical History / Comment(s): COLONOSCOPY, PARTIAL LT LOBECTOMY-(pt stated they thought i might of had tb but it was just scar tissue), D & C, 07-17-14 BOWEL RESECTION, HEART CATH W 2 STENTS AT [facility] [place]-15-15 , 12-18-17 lap robotic assisted repair of inc hernia Past Anesthesia/Blood Transfusion Reactions: No Reported Reaction Date of Last Stent Placement:: 11-15-15 AT [facility] [place] Past Psychological History: Anxiety, Panic Disorder Additional Psychological History / Comment(s): PT IS INDEPENDANT-drives,LIVES WITH SPOUSE and 2 pet cats. has 3 adult children and 10 grandchildren. 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 Smoking Status: Former smoker Past Alcohol Use History: Occasional Additional Past Alcohol Use History / Comment(s): smoked since age 13 1ppd; QUIT 2008 Past Drug Use History: None Reported - Past Family History Mother Family Medical History: Congestive Heart Failure (CHF) Father Family Medical History: Cancer Additional Family Medical History / Comment(s): TYPE OF CANCER NOT KNOWN Medications and Allergies Home Medications Medication Instructions Recorded Confirmed Type Atenolol/Chlorthalidone [Tenoretic 1 tab PO DAILY 02/20/14 01/27/20 History 50 Tablet] Omeprazole 40 mg PO DAILY 02/20/14 01/27/20 History clonazePAM [Clonazepam] 1 mg PO TID 02/20/14 01/27/20 History Calcium Carbonate/Vitamin D3 1 tab PO DAILY 07/14/14 01/27/20 History [Calcium 600-Vit D3 400 Tablet] HYDROcodone/APAP 7.5-325MG [[place] 1 tab PO DAILY PRN 09/14/16 01/27/20 History 7.5-325] Potassium Chloride [K-Tab ER] 10 meq PO BID 09/14/16 01/27/20 History amLODIPine [Norvasc] 10 mg PO DAILY 09/14/16 01/27/20 History Rosuvastatin Calcium [Crestor] 40 mg PO DAILY 01/10/17 01/27/20 History Acetaminophen Tab [Tylenol Tab] 500 mg PO Q4H PRN 01/27/20 01/27/20 History Albuterol Nebulized [Ventolin 2.5 mg INHALATION RT-QID PRN 01/27/20 01/27/20 History Nebulized] Albuterol Sulfate [Ventolin HFA] 2 puff INHALATION RT-QID PRN 01/27/20 01/27/20 History Aspirin EC [Ecotrin Low Dose] 81 mg PO DAILY 01/27/20 01/27/20 History Linaclotide [Linzess] 290 mcg PO DAILY PRN 01/27/20 01/27/20 History Multivitamin [Multivitamins Adult 2 tab PO DAILY 01/27/20 01/27/20 History Gummies] Allergies Allergy/AdvReac Type Severity Reaction Status Date / Time hydrocodone bitartrate AdvReac Nausea & Verified 01/27/20 16:37 [From Vicodin] Vomiting propoxyphene napsylate AdvReac Nausea & Verified 01/27/20 16:37 [[facility]] Vomiting Physical Exam Vitals: Vital Signs Temp Pulse Resp BP Pulse Ox 01/28/20 11:51 97.5 F L 64 16 131/60 94 L 01/28/20 08:08 97.8 F 95 16 125/69 95 01/28/20 03:47 97.4 F L 71 18 134/69 96 01/27/20 23:23 98.0 F 60 20 116/52 98 01/27/20 20:00 98.4 F 64 18 128/63 95 01/27/20 16:00 18 01/27/20 15:38 98.5 F 57 L 16 107/72 96 Intake and Output 01/27/20 01/28/20 01/28/20 22:59 06:59 14:59 Other: Voiding Method Toilet Toilet # Voids 1 1 Weight 76.8 kg GENERAL EXAM: Patient is alert and oriented and doesn't appear to be in any acute distress HEENT: Normocephalic. Normal reaction of pupils, equal size, normal range of extraocular motion. No erythema or exudates in the throat. NECK: No masses, no nuchal rigidity. CHEST: No chest wall deformity. LUNGS: Equal air entry with no crackles or wheeze. HEART: S1 and S2 normal with no audible mumurs or gallops. Regular rhythm, femorals equal on both sides.. ABDOMEN: No hepatosplenomegaly, normal bowel sounds, no guarding or rigidity. SKIN: No rashes CENTRAL NERVOUS SYSTEM: No focal deficits. EXTREMITIES: No cyanosis, clubbing or edema. Results 01/28/20 05:22 01/28/20 05:22 Cardiac Enzymes 01/27/20 01/27/20 01/28/20 Range/Units 16:26 16:26 05: AST 38 H 31 (14-36) U/L Troponin I <0.012 (0.000-0.034) ng/mL 01/28/20 Range/Units 05:22 AST (14-36) U/L Troponin I <0.012 (0.000-0.034) ng/mL CBC 01/27/20 01/28/20 Range/Units 16:26 05:22 WBC 11.8 H 10.7 H (3.8-10.6) k/uL RBC 4.35 4.37 (3.80-5.40) m/uL Hgb 14.1 14.2 (11.4-16.0) gm/dL Hct 41.2 43.2 (34.0-46.0) % Plt Count 340 292 (150-450) k/uL Comprehensive Metabolic Panel 01/27/20 01/28/20 Range/Units 16:26 05:22 Sodium 136 L 132 L (137-145) mmol/L Potassium 3.0 L 4.1 (3.5-5.1) mmol/L Chloride 98 100 (98-107) mmol/L Carbon Dioxide 25 18 L (22-30) mmol/L BUN 20 H 27 H (7-17) mg/dL Creatinine 0.98 1.06 H (0.52-1.04) mg/dL Glucose 129 H 317 H (74-99) mg/dL Calcium 9.1 9.0 (8.4-10.2) mg/dL AST 38 H 31 (14-36) U/L ALT 33 30 (4-34) U/L Alkaline Phosphatase 134 H 128 H (38-126) U/L Total Protein 7.3 7.3 (6.3-8.2) g/dL Albumin 4.2 4.1 (3.5-5.0) g/dL Current Medications Generic Name Dose Route Start Last Admin Trade Name Freq PRN Reason Stop Dose Admin Acetaminophen 500 mg 01/27/20 16:30 01/28/20 08:15 Tylenol Tab PO 500 mg Q4H JUAN J Administration Acetaminophen/Codeine Phosphate 1 each 01/27/20 16:22 Tylenol #3 PO Q4H PRN Pain Hydrocodone Bitart/Acetaminophen 1 each 01/27/20 16:22 [place] 7.5-325 PO Q4H PRN Pain Albuterol/Ipratropium 3 ml 01/27/20 16:22 Duoneb 0.5 Mg-3 Mg/3 Ml Soln INHALATION RT-QID PRN copd Amlodipine Besylate 5 mg 01/28/20 09:00 01/28/20 08:15 Norvasc PO 5 mg DAILY JUAN J Administration Aspirin 81 mg 01/28/20 09:00 01/28/20 08:15 Aspirin PO 81 mg DAILY JUAN J Administration Atenolol 50 mg 01/28/20 09:00 01/28/20 08:14 Tenormin PO 50 mg DAILY JUAN J Administration Atorvastatin Calcium 80 mg 01/28/20 09:00 01/28/20 08:15 Lipitor PO 80 mg DAILY JUAN J Administration Chlorthalidone 25 mg 01/28/20 09:00 01/28/20 08:14 [place] PO 25 mg DAILY JUAN J Administration Clonazepam 1 mg 01/27/20 22:00 01/28/20 08:15 Klonopin PO 1 mg TID JUAN J Administration Clopidogrel Bisulfate 75 mg 01/28/20 09:00 01/28/20 08:15 Plavix PO 75 mg DAILY JUAN J Administration Cyclobenzaprine HCl 5 mg 01/27/20 16:22 Flexeril PO TID PRN Muscle Spasm Dobutamine HCl/Dextrose 500 mg 250 mls @ 23.04 mls/hr 01/28/20 11:04 / IV Solution IV 01/28/20 21:55 .[id number] ONE Protocol 10 MCG/KG/MIN Insulin Aspart 0 unit 01/28/20 07:30 01/28/20 08:15 Novolog SQ Not Given ACHS [facility] Protocol Insulin Aspart 5 unit 01/28/20 12:30 Novolog SQ AC-TID [facility] Insulin Detemir 20 unit 01/28/20 10:30 01/28/20 12:05 Levemir SQ 20 unit DAILY@0700 JUAN J Administration Methylprednisolone Sodium Succinate 40 mg 01/27/20 16:30 01/28/20 08:15 Solu-Medrol IV 40 mg Q8HR JUAN J Administration Miscellaneous Information 1 each 01/27/20 18:53 Potassium Per Protocol MISCELLANE DAILY PRN Per Protocol Protocol Montelukast Sodium 10 mg 01/28/20 09:00 01/28/20 08:15 Singulair PO 10 mg DAILY JUAN J Administration Pantoprazole Sodium 40 mg 01/28/20 09:00 01/28/20 08:15 Protonix PO 40 mg DAILY JUAN J Administration Potassium Chloride 10 meq 01/28/20 09:00 01/28/20 08:15 K-Dur 10 PO 10 meq DAILY JUAN J Administration Intake and Output 01/27/20 01/28/20 01/28/20 22:59 06:59 14:59 Other: Voiding Method Toilet Toilet # Voids 1 1 Weight 76.8 kg 01/28/20 05:22 01/28/20 05:22 EKG Interpretations (text) Sinus rhythm Assessment and Plan (1) COPD (chronic obstructive pulmonary disease) Current Visit: No Status: Acute Code(s): J44.9 - CHRONIC OBSTRUCTIVE PULMONARY DISEASE, UNSPECIFIED SNOMED Code(s): 39038399 (2) Dyspnea Current Visit: Yes Status: Acute Code(s): R06.00 - DYSPNEA, UNSPECIFIED SNOMED Code(s): 290124286 (3) Claudication Current Visit: Yes Status: Acute Code(s): I73.9 - PERIPHERAL VASCULAR DISEASE, UNSPECIFIED SNOMED Code(s): 99816497 (4) CAD (coronary artery disease) Current Visit: Yes Status: Acute Code(s): I25.10 - ATHSCL HEART DISEASE OF [place] CORONARY ARTERY W/O ANG PCTRS SNOMED Code(s): 86957614 (5) Essential hypertension Current Visit: Yes Status: Acute Code(s): I10 - ESSENTIAL (PRIMARY) HYPERTENSION SNOMED Code(s): 42911201 (6) Dyslipidemia Current Visit: Yes Status: Acute Code(s): E78.5 - HYPERLIPIDEMIA, UNSPECIFIED SNOMED Code(s): 266428630 Plan: This patient is mainly admitted with progressive shortness of breath. The symptom could be multifactorial but mostly seems to be related to COPD and underlying pulmonary fibrosis. We'll get an echocardiogram to assess LV function. 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 We'll also get a dobutamine echo to rule out any progression of ischemic heart disease. Further recommendations depend upon the findings and the above tests
--- NOTE | 2020-01-28 13:38 | HP ---
HISTORY AND PHYSICAL A 64-year-old white female came in with known history of coronary artery disease, angioplasty of the PDA, 7years ago, had exertional chest pain and dyspnea, worse when she wears her mask and with just ordinary activity. She is not sure if she is having COPD exacerbation or unstable angina. She has hypertension, nicotine addiction, moderate carotid stenosis, and says her legs give out on her. She cannot even walk. She is significantly short of breath. She denies shortness of breath at night in her sleep. Cardiac enzymes are normal so far. Cardiology saw it. Chest x-ray is compatible with pulmonary fibrosis. Dobutamine echo has been ordered to make sure she has no heart disease. She is scared she has heart disease at this time. Just some lateral ST-T flattening on the EKG. She has history anxiety, depression, coronary artery disease. She has a spouse 2 pet cats, 3 adult children, 10 grandchildren. 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 FAMILY HISTORY: Mother CHF. Father some kind of cancer. HOME MEDICINES: See list. ALLERGIES: HYDROCODONE, DARVOCET. Temperature 97, 98, pulse 60-95, respiratory rate 18 to 20, blood pressure is 116 to 130s/60s to 70s, O2 94% to 96%. Lungs are equal air flow. Heart S1, S2. Abdomen is soft, normal bowel sounds. Skin, no rash, excoriations, bruising. 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 Extremities, no cyanosis, clubbing, or edema. White count is 10.7, BUN is 27, creatinine 1.06, sodium 132. Troponins are negative as mentioned. White count high 11.8, hemoglobin is 14.1, BUN is 27, creatinine 1.06, sodium is 132, potassium is 4.1. EKG sinus rhythm. ASSESSMENT: Pulmonary fibrosis, COPD exacerbation on IV steroids, dyslipidemia, atypical chest pain. Possible history of coronary artery disease. Unstable angina. Stress test is being ordered. Echo shows good lung ejection fraction. She is getting a dobutamine echo prior to discharge. MMODL / IJN: [id number] /
--- NOTE | 2020-01-28 16:30 | P.CNPUL ---
History of Present Illness Consult date: 01/28/20 Reason for consult: dyspnea Chief complaint: Progressive exertional dyspnea History of present illness: This is a 64-year-old with extensive history of smoking and nicotine use however quit smoking about 5 years ago, patient came into the hospital with exertional dyspnea progressive in nature, admitted directly from the primary care's office patient does have a significant history of coronary artery disease with haris oplasty stent placement 2, she denies any chest pain at rest however some exertional chest discomfort is present, she also has history of hypertension and hypertensive cardiovascular disease prior history of thoracotomy on the right side with bilateral pulmonary fibrosis, patient has nonspecific EKG changes, cardiac enzymes are normal, chest x-ray showed bilateral pulmonary fibrosis, echocardiogram revealed ejection fraction of 55-60% along with LVH and large LA and evidence of mild pulmonary hypertension, patient is to be evaluated for a stress test tomorrow, patient also has ongoing history of snoring Review of Systems All systems: negative Past Medical History Past Medical History: COPD, Deep Vein Thrombosis (DVT), Fibromyalgia, GERD/Reflux, Hyperlipidemia, Hypertension, Osteoarthritis (OA), Skin Disorder Additional Past Medical History / Comment(s): DIVERTICULITIS, HX KIDNEY STONE- still has it but it's never moved , Pneumonia, ROSACEA, DVT RLE 2007,gerson cataracts History of Any Multi-Drug Resistant Organisms: None Reported Past Surgical History: Appendectomy, Bowel Resection, Heart Catheterization With Stent, Hernia Repair, Tubal Ligation Additional Past Surgical History / Comment(s): COLONOSCOPY, PARTIAL LT LOBECTOMY-(pt stated they thought i might of had tb but it was just scar tissue), D & C, 07-17-14 BOWEL RESECTION, HEART C[place] 2 [place] [facility] [place] , 12-18-17 lap robotic assisted repair of inc hernia Past Anesthesia/Blood Transfusion Reactions: No Reported Reaction Date of Last Stent Placement:: 11-15-15 [place] [facility] [place] Past Psychological History: Anxiety, Panic Disorder Additional Psychological History / Comment(s): PT IS INDEPENDANT-drives,LIVES WITH SPOUSE and 2 pet cats. has 3 adult children and 10 grandchildren. 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 Smoking Status: Former smoker Past Alcohol Use History: Occasional Additional Past Alcohol Use History / Comment(s): smoked since age 13 1ppd; QUIT 2008 Past Drug Use History: None Reported - Past Family History Mother Family Medical History: Congestive Heart Failure (CHF) Father Family Medical History: Cancer Additional Family Medical History / Comment(s): TYPE OF CANCER NOT KNOWN Medications and Allergies Home Medications Medication Instructions Recorded Confirmed Type Atenolol/Chlorthalidone [Tenoretic 1 tab PO DAILY 02/20/14 01/27/20 History 50 Tablet] Omeprazole 40 mg PO DAILY 02/20/14 01/27/20 History clonazePAM [Clonazepam] 1 mg PO TID 02/20/14 01/27/20 History Calcium Carbonate/Vitamin D3 1 tab PO DAILY 07/14/14 01/27/20 History [Calcium 600-Vit D3 400 Tablet] HYDROcodone/APAP 7.5-325MG [[place] 1 tab PO DAILY PRN 09/14/16 01/27/20 History 7.5-325] Potassium Chloride [K-Tab ER] 10 meq PO BID 09/14/16 01/27/20 History amLODIPine [Norvasc] 10 mg PO DAILY 09/14/16 01/27/20 History Rosuvastatin Calcium [Crestor] 40 mg PO DAILY 01/10/17 01/27/20 History Acetaminophen Tab [Tylenol Tab] 500 mg PO Q4H PRN 01/27/20 01/27/20 History Albuterol Nebulized [Ventolin 2.5 mg INHALATION RT-QID PRN 01/27/20 01/27/20 History Nebulized] Albuterol Sulfate [Ventolin HFA] 2 puff INHALATION RT-QID PRN 01/27/20 01/27/20 History Aspirin EC [Ecotrin Low Dose] 81 mg PO DAILY 01/27/20 01/27/20 History Linaclotide [Linzess] 290 mcg PO DAILY PRN 01/27/20 01/27/20 History Multivitamin [Multivitamins Adult 2 tab PO DAILY 01/27/20 01/27/20 History Gummies] Allergies Allergy/AdvReac Type Severity Reaction Status Date / Time hydrocodone bitartrate AdvReac Nausea & Verified 01/27/20 16:37 [From Vicodin] Vomiting propoxyphene napsylate AdvReac Nausea & Verified 01/27/20 16:37 [From Darvocet-N 100] Vomiting Physical Exam Vitals: Vital Signs Temp Pulse Resp BP Pulse Ox 01/28/20 15:05 97.8 F 67 14 123/64 95 01/28/20 11:51 97.5 F L 64 16 131/60 94 L 01/28/20 08:08 97.8 F 95 16 125/69 95 01/28/20 03:47 97.4 F L 71 18 134/69 96 01/27/20 23:23 98.0 F 60 20 116/52 98 01/27/20 20:00 98.4 F 64 18 128/63 95 Intake and Output 01/28/20 01/28/20 01/28/20 06:59 14:59 22:59 Other: Voiding Method Toilet Toilet # Voids 1 1 3 - Constitutional General appearance: average body habitus, cooperative, disheveled - EENT Eyes: EOMI, PERRLA Ears: bilateral: normal - Neck Carotids: bilateral: upstroke normal Thyroid: bilateral: normal size - Respiratory Respiratory: bilateral: CTA - Cardiovascular Rhythm: regular Heart sounds: normal: S1, S2 - Gastrointestinal General gastrointestinal: normal bowel sounds - Integumentary Integumentary: normal turgor - Neurologic Neurologic: CNII-XII intact - Musculoskeletal Musculoskeletal: gait normal, generalized weakness, strength equal bilaterally - Psychiatric Psychiatric: A&O x's 3, appropriate affect, intact judgment & insight Results - Laboratory Findings CBC and BMP: 01/28/20 05:22 01/28/20 05:22 PT/INR, D-dimer D-Dimer 0.33 mg/L FEU (<0.60) 01/27/20 16:26 Abnormal lab findings: Abnormal Labs 01/27/20 01/27/20 01/27/20 16:26 16:26 16:26 WBC 11.8 H Neutrophils # 9.4 H Lymphocytes # Sodium 136 L Potassium 3.0 L Carbon Dioxide BUN 20 H Creatinine Glucose 129 H POC Glucose (mg/dL) Hemoglobin A1c 7.2 H AST 38 H Alkaline Phosphatase 134 H Urine Protein Urine Blood Urine Bacteria Hyaline Casts Urine Mucus 01/27/20 01/28/20 01/28/20 18:26 05:22 05:22 WBC 10.7 H Neutrophils # 10.0 H Lymphocytes # 0.5 L Sodium 132 L Potassium Carbon Dioxide 18 L BUN 27 H Creatinine 1.06 H Glucose 317 H POC Glucose (mg/dL) Hemoglobin A1c AST Alkaline Phosphatase 128 H Urine Protein 1+ H Urine Blood Trace H Urine Bacteria Occasional H Hyaline Casts 12 H Urine Mucus Rare H 01/28/20 01/28/20 06:35 11:58 WBC Neutrophils # Lymphocytes # Sodium Potassium Carbon Dioxide BUN Creatinine Glucose POC Glucose (mg/dL) 309 H 284 H Hemoglobin A1c AST Alkaline Phosphatase Urine Protein Urine Blood Urine Bacteria Hyaline Casts Urine Mucus - Diagnostic Findings Chest x-ray: report reviewed, image reviewed Assessment and Plan Assessment: Exertional dyspnea with baseline COPD and bilateral pulmonary fibrosis Exertional chest pain patient to be evaluated with stress test Coronary artery disease with prior history of stent placement Pulmonary hypertension Possible sleep disorder breathing and sleep apnea Plan: Okay to do bronchodilators along with IV steroids and supportive care continuation of home meds, awaiting stress test and findings patient will likely need a sleep study and outpatient basis along with further evaluation of lung function through a PFT Time with Patient: Greater than 30
[2020-01-28 16:41] LABS: Glucose,Whole Blood 277 mg/dL (75-99)
[2020-01-28 20:39] LABS: Glucose,Whole Blood 255 mg/dL (75-99)
[2020-01-29] MEDS: ACETAMINOPHEN TAB 500 MG TAB PO SCH ×4 (03:47→15:16)
[2020-01-29 06:34] LABS: Glucose,Whole Blood 309 mg/dL (75-99)
[2020-01-29] MEDS ORDERED: DOBUTamine DRIP for NUC MED 500 MG in DEXTROSE/WATER 1 250ML.BAG IV ONE (08:00)
[2020-01-29] MEDS: INSULIN ASPART (NovoLOG) 100 UNIT/ML VIAL SQ SCH ×6 (08:04→16:54)
[2020-01-29] MEDS: methylPREDNISolone SOD SUCCI 40 MG/ML 1 ML VIAL IV SCH (08:06)
[2020-01-29] MEDS: CHLORTHALIDONE 25 MG TAB PO SCH (08:06)
[2020-01-29] MEDS: PANTOPRAZOLE 40 MG TABLET PO SCH (08:06)
[2020-01-29] MEDS: ATORVASTATIN 80 MG TAB PO SCH (08:06)
[2020-01-29] MEDS: ASPIRIN 81 MG PO SCH (08:06)
[2020-01-29] MEDS: MONTELUKAST 10 MG TAB PO SCH (08:06)
[2020-01-29] MEDS: clonazePAM 1 MG TAB PO SCH ×2 (08:06→15:16)
[2020-01-29] MEDS: POTASSIUM CHLORIDE ER 10 MEQ TAB.ER.PRT PO SCH (08:07)
[2020-01-29] MEDS: amLODIPine 5 MG TAB PO SCH (08:07)
[2020-01-29] MEDS: INSULIN DETEMIR (LEVEMIR) 100 UNIT/ML SYR SQ SCH (08:09)
[2020-01-29] MEDS: atenoloL 50 MG TAB PO SCH (08:11)
[2020-01-29] MEDS: CLOPIDOGREL 75 MG TAB PO SCH (09:24)
[2020-01-29] MEDS ORDERED: AMINOPHYLLINE 500 MG/20 ML VIAL IV PRN (10:53)
[2020-01-29] MEDS ORDERED: CAFFEINE CITRATE 60 MG/3 ML VIAL IV PRN (10:53)
[2020-01-29] MEDS ORDERED: REGADENOSON 0.4 MG/5 ML SYRINGE IV ONE (10:53)
[2020-01-29 13:15] LABS: Glucose,Whole Blood 213 mg/dL (75-99)
--- NOTE | 2020-01-29 15:10 | P.PN ---
Progress Note - Text Progress Note Date: 01/29/[address] on [address]. GRUBER'S note: new onset diabetes, hemoglobin A1c 7.2 Case management to assist with glucometer, diabetic supplies for discharge.
[2020-01-29 15:22] VITALS: BP 126/64; PULSE 74; RESP 16; TEMP 98
--- NOTE | 2020-01-29 15:40 | NM ---
EXAMINATION TYPE: NM stress lexiscan cardiolite DATE OF EXAM: 01/29/2020 COMPARISON: Nuclear medicine Lexiscan 12/18/2016 HISTORY: Chest pain TECHNIQUE: After the intravenous administration of 9.8 mCi Tc 99m Sestamibi - Cardiolite resting SPE CT images acquired 45 minutes post injection. The patient received 0.4mg Lexiscan, 26 mCi Tc 99m Sestamibi - Stress images obtained 30 minutes post injection FINDINGS: Review of stress and rest SPECT images demonstrates a defect along the anterior wall on rest images w hich slightly improves on stress, due to breast attenuation artifact. No distinct perfusion abnormali ty. Gated analysis shows normal wall motion with an estimated left ventricular ejection fraction of 51%. TID 0.92 IMPRESSION: 1. No scintigraphic evidence for reversible ischemia. 2. Ejection fraction 51%.
[2020-01-29 16:47] LABS: Glucose,Whole Blood 334 mg/dL (75-99)
--- NOTE | 2020-01-29 16:48 | P.PN ---
Subjective Progress Note Date: 01/29/20 Principal diagnosis: Exertional dyspnea with baseline COPD and bilateral pulmonary fibrosis Exertional chest pain patient to be evaluated with stress test Coronary artery disease with prior history of stent placement Pulmonary hypertension Possible sleep disorder breathing and sleep apnea 01/29/2020, patient seen eval examined during the rounds breathing comfortably at room air denies any chest pain or shortness of breath, denies any cough or sputum production, his stress test has been done, noted preliminary findings negative for any significant ischemia of she'll report however is pending patient likely will be discharged home will recommend follow-up in outpatient basis This is a 64-year-old with extensive history of smoking and nicotine use however quit smoking about 5 years ago, patient came into the hospital with exertional dyspnea progressive in nature, admitted directly from the primary care's office patient does have a significant history of coronary artery disease with angioplasty stent placement 2, she denies any chest pain at rest however some exertional chest discomfort is present, she also has history of hypertension and hypertensive cardiovascular disease prior history of thoracotomy on the right side with bilateral pulmonary fibrosis, patient has nonspecific EKG changes, cardiac enzymes are normal, chest x-ray showed bilateral pulmonary fibrosis, echocardiogram revealed ejection fraction of 55-60% along with LVH and large LA and evidence of mild pulmonary hypertension, patient is to be evaluated for a stress test tomorrow, patient also has ongoing history of snoring Objective - Vital Signs Vital signs: Vital Signs Temp 98.0 F 01/29/20 15:20 Pulse 74 01/29/20 15:20 Resp 16 01/29/20 15:20 BP 126/64 01/29/20 15:20 Pulse Ox 95 01/29/20 15:20 Intake & Output 01/28/20 01/29/20 01/29/20 18:59 06:59 18:59 Intake Total 550 240 Balance 550 240 Intake: Oral 550 240 Other: Voiding Method Toilet Toilet Toilet # Voids 3 1 1 - Exam - Constitutional General appearance: average body habitus, cooperative, disheveled - EENT Eyes: EOMI, PERRLA Ears: bilateral: normal - Neck Carotids: bilateral: upstroke normal Thyroid: bilateral: normal size - Respiratory Respiratory: bilateral: CTA - Cardiovascular Rhythm: regular Heart sounds: normal: S1, S2 - Gastrointestinal General gastrointestinal: normal bowel sounds - Integumentary Integumentary: normal turgor - Neurologic Neurologic: CNII-XII intact - Musculoskeletal Musculoskeletal: gait normal, generalized weakness, strength equal bilaterally - Psychiatric Psychiatric: A&O x's 3, appropriate affect, intact judgment & insight - Labs CBC & Chem 7: 01/28/20 05:22 01/28/20 05:22 Labs: Abnormal Lab Results - Last 24 Hours (Table) 01/28/20 01/29/20 01/29/20 Range/Units 20:37 06:32 13:11 POC Glucose (mg/dL) 255 H 309 H 213 H (75-99) mg/dL Assessment and Plan Assessment: Exertional dyspnea with baseline COPD and bilateral pulmonary fibrosis Exertional chest pain patient to be evaluated with stress test Coronary artery disease with prior history of stent placement Pulmonary hypertension Possible sleep disorder breathing and sleep apnea Plan: Okay to do bronchodilators along with IV steroids and supportive care continu ation of home meds, awaiting stress test and findings patient will likely need a sleep study and outpatient basis along with further evaluation of lung function through a PFT, and the time of discharge patient can be discharged home on tapering steroids Time with Patient: Greater than 30
[2020-01-30] MEDS ORDERED: predniSONE 20 MG TAB PO SCH (09:00)
--- NOTE | 2020-01-30 11:52 | P.STRESS ---
- Stress Test Note Stress Test Results/Findings: Exam Performed: NM stress lexiscan cardiolite Exam Date: 01/29/20 Reason for Exam: SOB Height: 5 ft 8 in Weight: 76.8 kg Protocol: LEXISCAN Stage: NA Duration of Exercise: NA Resting Heart Rate: 69 Resting Blood Pressure: 104/52 Maximum Achieved Heart Rate: 79 Maximum Achieved Blood Pressure: 127/50 85% PMHR: NA 100% PMHR: NA METS: NA Technologist Comment: Stress Test Results/Findings: This is a 64-year-old female with history of hypertension, hypercholesterolemia, ischemic heart disease and also chronic tobacco abuse. Patient is being evaluated for symptoms of shortness of breath. Stress data: Baseline EKG showed sinus rhythm at all. CT and QRS duration. Blood pressure at rest was 104/52 with pulse rate of 69. A standard dose of Lexiscan was infused. EKGs taken during the infusion did not reveal any significant changes from the baseline. Final impression: #1. Negative Lexiscan stress test #2. Report on the nuclear images to be given by the radiologist
--- NOTE | 2020-01-30 16:13 | EST ---
Stress Test Results/Findings: Exam Performed: NM stress lexiscan cardiolite Exam Date: 01/29/20 Reason for Exam: SOB Height: 5 ft 8 in Weight: 76.8 kg Protocol: LEXISCAN Stage: NA Duration of Exercise: NA Resting Heart Rate: 69 Resting Blood Pressure: 104/52 Maximum Achieved Heart Rate: 79 Maximum Achieved Blood Pressure: 127/50 85% PMHR: NA 100% PMHR: NA METS: NA Technologist Comment: Stress Test Results/Findings: This is a 64-year-old female with history of hypertension, hypercholesterolemia, ischemic heart disease and also chronic tobacco abuse. Patient is being evaluated for symptoms of shortness of breath. Stress data: Baseline EKG showed sinus rhythm at all. ND and QRS duration. Blood pressure at rest was 104/52 with pulse rate of 69. A standard dose of Lexiscan was infused. EKGs taken during the infusion did not reveal any significant changes from the baseline. Final impression: #1. Negative Lexiscan stress test #2. Report on the nuclear images to be given by the radiologist MAINOR
--- NOTE | 2020-01-30 17:55 | P.DS ---
Providers Date of admission: 01/27/20 14:59 Expected date of discharge: 01/29/20 Attending physician: Gregorio Garber Consults: 01/27/20 16:25 Consult Physician Routine Consulting Provider: Aayush Kim Consult Reason/Comments: cad/dyspnea Do you want consulting provider notified?: Yes 01/27/20 16:26 Consult Physician Routine Consulting Provider: Chito Cantor Consult Reason/Comments: copd Do you want consulting provider notified?: Yes Primary care physician: [facility] Course: Final Diagnoses: (1) acute COPD (chronic obstructive pulmonary disease) exacerbation with bilateral pulmonary fibrosis Current Visit: No Status: Acute Code(s): J44.9 - CHRONIC OBSTRUCTIVE PULMON VANESSA DISEASE, UNSPECIFIED SNOMED Code(s): 14387997 (2) exertional chest pain, status post negative Lexiscan stress test (3) new onset diabetes mellitus, hemoglobin A1c 7.2 (4) Claudication Current Visit: Yes Status: Acute Code(s): I73.9 - PERIPHERAL VASCULAR DISEASE, UNSPECIFIED SNOMED Code(s): 35686851 (5) CAD (coronary artery disease) Current Visit: Yes Status: Acute Code(s): I25.10 - ATHSCL HEART DISEASE OF OSAGE CORONARY ARTERY W/O ANG PCTRS SNOMED Code(s): 28880951 (6) Essential hypertension Current Visit: Yes Status: Acute Code(s): I10 - ESSENTIAL (PRIMARY) HYPERTENSION SNOMED Code(s): 28283340 (7) Dyslipidemia Current Visit: Yes Status: Acute Code(s): E78.5 - HYPERLIPIDEMIA, UNSPECIFIED SNOMED Code(s): 332372586 Hospital course: This a 64-year-old female admitted with multiple medical issues including new onset diabetes mellitus, exertional shortness of breath. Evaluated by cardiology and pulmonary.Underwent elective stress scan, reported as negative. Cleared by cardiology for discharge. Maintained on insulin with significant clinical improvement. Case management assisting with glucometer, diabetic supplies. Further outpatient Diabetic education at PCPs office. Patient is being discharged home in a stable condition with guarded prognosis. The impression and plan of care has been dictated as directed. : I performed a history and examination of this patient, discussed the same with the dictator. I agree with the dictator's note ,documented as a scribe. Any additional findings or plans will be noted. Patient Condition at Discharge: Stable Plan - Discharge Summary New Discharge Prescriptions: New Cyclobenzaprine [Flexeril] 5 mg PO TID PRN tab PRN Reason: Muscle Spasm Montelukast [Singulair] 10 mg PO DAILY tab Insulin Detemir (Levemir) [Levemir] 20 unit SQ DAILY@0700 #1 syr predniSONE 10 mg PO DIRECTED #30 tab Continue clonazePAM [Clonazepam] 1 mg PO TID Omeprazole 40 mg PO DAILY Atenolol/Chlorthalidone [Tenoretic 50 Tablet] 1 tab PO DAILY Calcium Carbonate/Vitamin D3 [Calcium 600-Vit D3 400 Tablet] 1 tab PO DAILY HYDROcodone/APAP 7.5-325MG [[place] 7.5-325] 1 tab PO DAILY PRN PRN Reason: Pain amLODIPine [Norvasc] 10 mg PO DAILY Potassium Chloride [K-Tab ER] 10 meq PO BID Rosuvastatin Calcium [Crestor] 40 mg PO DAILY Albuterol Nebulized [Ventolin Nebulized] 2.5 mg INHALATION RT-QID PRN PRN Reason: Shortness Of Breath Albuterol Sulfate [Ventolin HFA] 2 puff INHALATION RT-QID PRN PRN Reason: Shortness Of Breath Aspirin EC [Ecotrin Low Dose] 81 mg PO DAILY Linaclotide [Linzess] 290 mcg PO DAILY PRN PRN Reason: IBS Multivitamin [Multivitamins Adult Gummies] 2 tab PO DAILY Acetaminophen Tab [Tylenol] 500 mg PO Q4H PRN PRN Reason: Pain Discharge Medication List Atenolol/Chlorthalidone [Tenoretic 50 Tablet] 1 tab PO DAILY 02/20/14 [History] Omeprazole 40 mg PO DAILY 02/20/14 [History] clonazePAM [Clonazepam] 1 mg PO TID 02/20/14 [History] Calcium Carbonate/Vitamin D3 [Calcium 600-Vit D3 400 Tablet] 1 tab PO DAILY 07/14/14 [History] HYDROcodone/APAP 7.5-325MG [[place] 7.5-325] 1 tab PO DAILY PRN 09/14/16 [History] Potassium Chloride [K-Tab ER] 10 meq PO BID 09/14/16 [History] amLODIPine [Norvasc] 10 mg PO DAILY 09/14/16 [History] Rosuvastatin Calcium [Crestor] 40 mg PO DAILY 01/10/17 [History] Acetaminophen Tab [Tylenol] 500 mg PO Q4H PRN 01/27/20 [History] Albuterol Nebulized [Ventolin Nebulized] 2.5 mg INHALATION RT-QID PRN 01/27/20 [History] Albuterol Sulfate [Ventolin HFA] 2 puff INHALATION RT-QID PRN 01/27/20 [History] Aspirin EC [Ecotrin Low Dose] 81 mg PO DAILY 01/27/20 [History] Linaclotide [Linzess] 290 mcg PO DAILY PRN 01/27/20 [History] Multivitamin [Multivitamins Adult Gummies] 2 tab PO DAILY 01/27/20 [History] Cyclobenzaprine [Flexeril] 5 mg PO TID PRN tab 01/29/20 [Rx] Insulin Detemir (Levemir) [Levemir] 20 unit SQ DAILY@0700 #1 syr 01/29/20 [Rx] Montelukast [Singulair] 10 mg PO DAILY tab 01/29/20 [Rx] predniSONE 10 mg PO DIRECTED #30 tab 01/29/20 [Rx] Follow up Appointment(s)/Referral(s): [facility] [NON-STAFF] - As Needed Gregorio Garber MD [Primary Care Provider] - 3 Days Activity/Diet/Wound Care/Special Instructions: Patient reports she was taken off of Plavix. Accu-Cheks before meals and at bedtime, maintain log intake to follow-up visit with PCP for further recommendations Diabetic education classes at PCPs office. Discharge Disposition: HOME SELF-CARE
== END 2020-01-29 17:56 | disposition home or self-care (01) ==
LOC: 1SOBS 14:59
PROVIDERS: ADMIT Family Medicine; ATTEND Family Medicine
DX: J44.1 Chronic obstructive pulmonary disease with (acute) exacerbation (principal); J84.10 Pulmonary fibrosis, unspecified; R07.89 Other chest pain; E11.9 Type 2 diabetes mellitus without complications; I73.9 Peripheral vascular disease, unspecified; I25.10 Atherosclerotic heart disease of native coronary artery without angina pectoris; I11.9 Hypertensive heart disease without heart failure; E78.5 Hyperlipidemia, unspecified; I65.29 Occlusion and stenosis of unspecified carotid artery; R94.31 Abnormal electrocardiogram [ECG] [EKG]; F41.9 Anxiety disorder, unspecified; F32.9 Major depressive disorder, single episode, unspecified; I27.20 Pulmonary hypertension, unspecified; R06.83 Snoring; M79.7 Fibromyalgia; K21.9 Gastro-esophageal reflux disease without esophagitis; M19.90 Unspecified osteoarthritis, unspecified site; L71.9 Rosacea, unspecified; K57.90 Diverticulosis of intestine, part unspecified, without perforation or abscess without bleeding; N20.0 Calculus of kidney; F41.0 Panic disorder [episodic paroxysmal anxiety]; E78.00 Pure hypercholesterolemia, unspecified; Z03.818 Encounter for observation for suspected exposure to other biological agents ruled out; Z95.5 Presence of coronary angioplasty implant and graft; Z87.891 Personal history of nicotine dependence; Z88.5 Allergy status to narcotic agent; Z79.899 Other long term (current) drug therapy; Z79.891 Long term (current) use of opiate analgesic; Z79.82 Long term (current) use of aspirin; Z98.890 Other specified postprocedural states; Z86.718 Personal history of other venous thrombosis and embolism; Z87.01 Personal history of pneumonia (recurrent); Z98.41 Cataract extraction status, right eye; Z98.42 Cataract extraction status, left eye; Z90.49 Acquired absence of other specified parts of digestive tract; Z98.51 Tubal ligation status; Z90.2 Acquired absence of lung [part of]; Z87.19 Personal history of other diseases of the digestive system; Z82.49 Family history of ischemic heart disease and other diseases of the circulatory system; Z80.9 Family history of malignant neoplasm, unspecified
CPT/HCPCS: 93005; 96374; 96376 ×3; 93017; 85379; 83880; 80053 ×2; 84484 ×2; 85025 ×2; 81001; 83036; 71046; 93923; 78452; G0378 ×3; G0379; C8929; U0003; A9500; J1250; J2920 ×3; J2785; Q9950; 93306

== ENCOUNTER → 2020-04-07 | Outpatient (CLI) | payer MEDICARE ==
[2020-04-07 16:12] LABS: HCT 43.8 % (34.0-46.0); HGB 13.8 gm/dL (11.4-16.0); MCH 29.8 pg (25.0-35.0); MCHC 31.6 g/dL (31.0-37.0); MCV 94.2 fL (80.0-100.0); Mean Platelet Volume 7.1; Platelet Count 302 k/uL (150-450); RBC 4.65 m/uL (3.80-5.40); RDW 13.1 % (11.5-15.5); WBC 8.2 k/uL (3.8-10.6)
[2020-04-07 16:27] LABS: Magnesium 1.5 mg/dL (1.6-2.3); Potassium 3.3 mmol/L (3.5-5.1)
== END | disposition home or self-care (01) ==
LOC: LABPAT 15:10
PROVIDERS: ATTEND Internal Medicine Interventional Cardiology
DX: Z01.818 Encounter for other preprocedural examination (principal); I73.9 Peripheral vascular disease, unspecified
CPT/HCPCS: 80051; 82565; 83735; 84520; 85027

== ENCOUNTER 2020-04-14 06:22 | Day surgery (SDC) | payer MEDICARE ==
[2020-04-09 15:51] VITALS: BMI 32.3
[2020-04-14] MEDS ORDERED: ASPIRIN 325 MG TAB PO STA (06:35)
[2020-04-14] MEDS ORDERED: ALPRAZolam 0.25 MG TAB PO PRN (06:35)
[2020-04-14] MEDS ORDERED: ZOLPIDEM 5 MG TAB PO PRN (06:35)
[2020-04-14] MEDS ORDERED: SODIUM CHLORIDE 0.9% 1,000 ML in EMPTY BAG 1 BAG IV ONE (06:35)
[2020-04-14] MEDS ORDERED: ASPIRIN 81 MG ONE (06:44)
[2020-04-14 07:02] LABS: Glucose,Whole Blood 518 mg/dL (75-99)
[2020-04-14] MEDS: INSULIN ASPART (NovoLOG) 100 UNIT/ML VIAL SQ SCH ×4 (07:12→20:47)
[2020-04-14 07:27] LABS: ALT 25 U/L (4-34); AST 28 U/L (14-36); African American GFR (CKD) >90 (>60 ml/min/1.73 sqM); Albumin 4.1 g/dL (3.5-5.0); Alkaline Phosphatase 130 U/L (38-126); Anion Gap 11 mmol/L; Blood Urea Nitrogen 17 mg/dL (7-17); Calcium 9.2 mg/dL (8.4-10.2); Carbon Dioxide 24 mmol/L (22-30); Chloride 98 mmol/L (98-107); Non-African American GFR(CKD) 80 (>60 ml/min/1.73 sqM); Potassium 3.8 mmol/L (3.5-5.1); Sodium 133 mmol/L (137-145); Total Bilirubin 0.8 mg/dL (0.2-1.3); Total Protein 7.3 g/dL (6.3-8.2)
[2020-04-14 07:36] LABS: Glucose 575 mg/dL (74-99)
[2020-04-14 07:53] LABS: Glucose,Whole Blood 510 mg/dL (75-99)
[2020-04-14] MEDS ORDERED: MIDAZOLAM 2 MG/2 ML VIAL IVP ONE (07:53)
[2020-04-14] MEDS: LIDOCAINE 1% INJ 10MG/ML (20 ML MDV) SQ ONE ×2 (07:55→08:00)
[2020-04-14] MEDS ORDERED: HYDROmorphone 0.5 MG/0.5 ML SYRINGE IVP ONE (07:58)
[2020-04-14] MEDS: INSULIN ASPART (NovoLOG) 100 UNIT/ML VIAL SQ ONE ×2 (08:00→08:38)
[2020-04-14] MEDS: HEPARIN SODIUM 1,000 UN/ML (10ML VL) IV ONE ×2 (08:06→08:43)
[2020-04-14] MEDS: MIDAZOLAM 2 MG/2 ML VIAL IVP ONE ×2 (08:11→08:38)
[2020-04-14 08:32] LABS: Glucose,Whole Blood 403 mg/dL (75-99)
[2020-04-14] MEDS ORDERED: IOPAMIDOL-250 100ML BTL INTRAARTER ONE (09:00)
[2020-04-14] MEDS ORDERED: CLOPIDOGREL 75 MG TAB PO ONE (09:01)
[2020-04-14] MEDS ORDERED: ALBUTEROL HFA INHALER INHALATION PRN (09:07)
[2020-04-14] MEDS ORDERED: CYCLOBENZAPRINE 5 MG TAB PO PRN (09:07)
[2020-04-14] MEDS ORDERED: PATIENT'S OWN (Linaclotide [Linzess] 290 MCG Capsule) PO PRN (09:07)
[2020-04-14] MEDS ORDERED: HYDROcodone/APAP 7.5-325MG 1 EACH TAB PO PRN (09:07)
[2020-04-14] MEDS ORDERED: ALBUTEROL NEBULIZED 2.5 MG/3 ML INHALATION PRN (09:07)
[2020-04-14] MEDS ORDERED: SODIUM CHLORIDE 0.9% 1,000 ML in EMPTY BAG 1 BAG IV SCH (09:15)
[2020-04-14 09:21] LABS: Glucose,Whole Blood 316 mg/dL (75-99)
[2020-04-14] MEDS: MAG HYDROX/AL HYDROX/SIMETH 30 ML CUP PO PRN (10:06)
--- NOTE | 2020-04-14 10:21 | LTR ---
DATE OF SERVICE: 04/14/2020 RE: Gianna Dale Dear Dr. Garber; Ms. Gianna Dale underwent today successful angioplasty of bilateral iliac arteries with good angiographic results and without any complication. I want to thank you for allowing us to participate in her care and please do not hesitate to call if you have any question or concern. Sincerely, Aayush Kim M.D. LORETA / YSABEL: [id number] /
--- NOTE | 2020-04-14 10:24 | PTCA ---
PERCUTANEOUSTRANS CORORONARY ANGIOGRAPHY DATE OF SERVICE: 04/14/2020. PERFORMING PHYSICIAN: Aayush Kim MD. PROCEDURE PERFORMED: 1. Successful stenting of the right and left common iliac arteries using 7.0 x 59 and 7.0 x 39 mm stents in a kissing technique with an excellent angiographic results. 2. Intravascular ultrasound (IVUS) of bilateral common iliac arteries and external iliac arteries. 3. Successful balloon angioplasty of the left external iliac artery. 4. Selective angiogram of bilateral common iliacs and bilateral external iliacs as well as common femoral arteries. INDICATION: This is a 64-year-old female patient who sees Dr. Garber in the office with diabetes and hypertension and dyslipidemia who was experiencing bilateral lower extremities intermittent claudication, worse on the right side than the left side. She underwent an angiogram which revealed critical right iliac and intermediate to severe disease involving the ostial of the left iliac with intermediate to severe disease involving the left external iliac artery. The arteries were extremely calcified. She was brought today to undergo an intervention. APPROACH: Right and left common femoral artery. COMPLICATION: None. LEVEL OF SEDATION: Moderate with sedation length of 60 minutes. PROCEDURE DESCRIPTION: After obtaining an informed consent, the patient was brought to the cardiac labor union business representative. The right and left common femoral artery were cannulated using micropuncture technique under ultrasound guidance, the micropuncture wire passed easily then I placed a 7- Vietnamese sheath 23 cm on the right side and the 6-Vietnamese sheath 23 cm on the left side. I did after that an angiogram with simultaneous injection through both sheaths. That revealed critical disease involving the right common iliac artery and intermediate to severe disease involving the left common iliac artery with extremely calcified arteries. At that point, anticoagulation was initiated using Angiomax. After that, I did exchange my 0.035 wire into 0.014 wire using 0.035 catheter, preparing for intravascular ultrasound. IVUS was performed and revealed a diameter of 7 mm of the right common iliac artery. I decided to go with 2.7 mm balloon expandable stent. On the right, I decided to go with 7 x 59 on the left with 7 x 39 mm. Both the stents were loaded over a 0.035 wire and deployed in a kissing technique simultaneously. The following angiogram showed excellent angiographic results. The sheath on the left side was pulled back and selective left external iliac artery angiogram was performed and that revealed intermediate to severe lesion involving the left external iliac artery. IVUS was applied and that showed the lesion to be tight and because of that I did balloon angioplasty using 6 x 40 mm chocolate balloon. It was inflated under 8 atmospheres x2. Each inflation was for one minute. The following angiogram showed excellent angiographic results and the procedure was completed without any complication. After that. I did exchange my long sheath into short sheath using 0.035 wire and finally I did selective bilateral common femoral arteries angiogram. The procedure was completed without any complication. POSTPROCEDURE MANAGEMENT: 1. Dual anti-platelet therapy. 2. Risk factor modifications. 3. Follow up with the patient. MMODL / IJN: [id number] /
[2020-04-14 10:44] LABS: Basophils # (A) 0.1 k/uL (0-0.2); Basophils % (A) 1 %; Eosinophils # (A) 0.2 k/uL (0-0.7); Eosinophils % (A) 3 %; HCT 42.8 % (34.0-46.0); HGB 14.2 gm/dL (11.4-16.0); Lymphocytes # (A) 1.1 k/uL (1.0-4.8); Lymphocytes % (A) 15 %; MCH 32.3 pg (25.0-35.0); MCHC 33.2 g/dL (31.0-37.0); MCV 97.1 fL (80.0-100.0); Mean Platelet Volume 8.1; Monocytes # (A) 0.5 k/uL (0-1.0); Monocytes % (A) 7 %; Neutrophils % (A) 72 %; Platelet Count 362 k/uL (150-450); RBC 4.41 m/uL (3.80-5.40); RDW 13.2 % (11.5-15.5)
[2020-04-14] MEDS: ACETAMINOPHEN TAB 500 MG TAB PO PRN ×2 (11:41→16:14)
[2020-04-14 11:45] LABS: Glucose,Whole Blood 116 mg/dL (75-99)
[2020-04-14] MEDS ORDERED: ATROPINE SULFATE 0.1 MG/ML 10ML SYRINGE ONE (12:41)
[2020-04-14] MEDS: IPRATROPIUM 0.5 MG/2.5 ML NEBU INHALATION SCH ×3 (12:56→22:08)
[2020-04-14] MEDS: clonazePAM 1 MG TAB PO SCH ×2 (14:50→20:59)
[2020-04-14 17:19] LABS: Glucose,Whole Blood 215 mg/dL (75-99)
[2020-04-14 20:31] LABS: Glucose,Whole Blood 365 mg/dL (75-99)
[2020-04-14] MEDS: SYMBICORT 80-4.5 MCG INHALER INHALATION SCH (22:07)
--- NOTE | 2020-04-15 00:23 | CONS ---
CONSULTATION A 64-year-old white female, status post successful stenting of the right and left common iliac arteries with excellent results. She has history of diabetes and hypertension. Postop lying flat in bed with her legs down and her head up. She is status post CARE DIRECTOR RN for severe disease involving left iliac intermediate to severe disease, left external iliac. Her sugars are shooting up into the 300 to 500s after postop. Will start her on Levemir 15 units at night tonight as well as Accu-Chek protocol. Home medicines restarted. Vital signs stable, afebrile. CARDIOVASCULAR: S1, S2. LUNGS: Clear. GI: Soft. HEMATOLOGY: Negative Homans. PSYCH: Fair mood and affect. OPHTHALMOLOGIC: Pupils equal, round, reactive. NEUROLOGIC: Alert and oriented x3. Medications reviewed. Do some diabetic teaching. ASSESSMENT: Status post iliac left and right artery stenosis, CARE DIRECTOR RN. Risk factor modifications including weight loss, smoking cessation, sugar control, started on insulin with Accu- Chek protocol as well as Levemir 15 units at night. Follow up in the morning. MMODL / IJN: [id number] /
[2020-04-15] MEDS: ACETAMINOPHEN TAB 500 MG TAB PO PRN (03:46)
[2020-04-15] MEDS: MAG HYDROX/AL HYDROX/SIMETH 30 ML CUP PO PRN (04:02)
[2020-04-15] MEDS ORDERED: INSULIN DETEMIR (LEVEMIR) 100 UNIT/ML SYR SQ SCH ×2 (07:00→21:00)
[2020-04-15] MEDS: INSULIN ASPART (NovoLOG) 100 UNIT/ML VIAL SQ SCH ×5 (07:13→21:02)
[2020-04-15] MEDS: PANTOPRAZOLE 40 MG TABLET PO SCH (07:14)
[2020-04-15 08:32] LABS: Basophils # (A) 0.1 k/uL (0-0.2); Basophils % (A) 1 %; Eosinophils # (A) 0.2 k/uL (0-0.7); Eosinophils % (A) 2 %; HCT 40.4 % (34.0-46.0); HGB 13.4 gm/dL (11.4-16.0); Lymphocytes # (A) 0.7 k/uL (1.0-4.8); Lymphocytes % (A) 9 %; MCH 32.2 pg (25.0-35.0); MCHC 33.2 g/dL (31.0-37.0); MCV 96.9 fL (80.0-100.0); Monocytes # (A) 0.4 k/uL (0-1.0); Monocytes % (A) 5 %; Neutrophils # (A) 6.6 k/uL (1.3-7.7); Neutrophils % (A) 82 %; Platelet Count 308 k/uL (150-450); RBC 4.17 m/uL (3.80-5.40); RDW 13.3 % (11.5-15.5); WBC 8.1 k/uL (3.8-10.6)
[2020-04-15 08:41] LABS: African American GFR (CKD) >90 (>60 ml/min/1.73 sqM); Anion Gap 8 mmol/L; Blood Urea Nitrogen 12 mg/dL (7-17); Carbon Dioxide 24 mmol/L (22-30); Chloride 102 mmol/L (98-107); Glucose 347 mg/dL (74-99); Non-African American GFR(CKD) >90 (>60 ml/min/1.73 sqM); Potassium 3.7 mmol/L (3.5-5.1); Sodium 134 mmol/L (137-145)
[2020-04-15] MEDS: clonazePAM 1 MG TAB PO SCH ×3 (08:43→21:02)
[2020-04-15] MEDS: MONTELUKAST 10 MG TAB PO SCH (08:43)
[2020-04-15] MEDS: CHLORTHALIDONE 25 MG TAB PO SCH (08:44)
[2020-04-15] MEDS: MULTIVITAMINS, THERA 1 EACH TAB PO SCH (08:44)
[2020-04-15] MEDS: ATORVASTATIN 80 MG TAB PO SCH (08:44)
[2020-04-15] MEDS: atenoloL 50 MG TAB PO SCH (08:44)
[2020-04-15] MEDS: CALCIUM CARB-VIT D 500MG-200UN 1 EACH TAB PO SCH (08:44)
[2020-04-15] MEDS: amLODIPine 10 MG TAB PO SCH (08:44)
[2020-04-15] MEDS: POTASSIUM CHLORIDE ER 20 MEQ TAB.ER PO SCH (08:44)
[2020-04-15] MEDS ORDERED: ATENOLOL PO SCH (09:00)
[2020-04-15] MEDS ORDERED: CHLORTHALIDONE PO SCH (09:00)
[2020-04-15] MEDS ORDERED: NON FORMULARY DRUG (Fluticasone/Umeclidin/Vilanter [Trelegy Ellipta 100-62.5-25] 1 EACH Bl INHALATION SCH (09:00)
[2020-04-15] MEDS: SYMBICORT 80-4.5 MCG INHALER INHALATION SCH ×2 (09:37→16:28)
[2020-04-15] MEDS: IPRATROPIUM 0.5 MG/2.5 ML NEBU INHALATION SCH ×4 (09:37→20:17)
[2020-04-15 10:31] LABS: Glucose,Whole Blood 370 mg/dL (75-99)
[2020-04-15] MEDS: ASPIRIN 81 MG PO SCH (11:08)
--- NOTE | 2020-04-15 11:33 | DS ---
DISCHARGE SUMMARY DATE OF ADMISSION: 04/14/2020 DISCHARGE DATE: 04/15/2020 BRIEF HISTORY: This is a 64-year-old female patient who underwent yesterday successful stenting of the right and left common iliac arteries with an excellent angiographic results and without any complication. The patient was seen today and she is going to be discharged home on dual anti-platelet therapy. The glucose is elevated and that has been managed by Dr. Garber who is going to see her today. MMODL / IJN: [id number] /
[2020-04-15 12:11] LABS: Glucose,Whole Blood 461 mg/dL (75-99)
[2020-04-15] MEDS ORDERED: INSULIN ASPART (NovoLOG) 100 UNIT/ML VIAL SQ ONE (12:32)
--- NOTE | 2020-04-15 14:04 | IR ---
EXAMINATION TYPE: IR captain waiter iliac DATE OF EXAM: 04/14/2020 COMPARISON: NONE HISTORY: Peripheral vascular disease TECHNIQUE: Fluoroscopy. FINDINGS: Fluoroscopic guidance was provided during procedure performed by Dr. Kim. A total of 13 minutes of fluoroscopic time was utilized during the procedure and 424 images acquired. Please see op erative report for additional details. IMPRESSION: As Above.
[2020-04-15 17:03] LABS: Glucose,Whole Blood 348 mg/dL (75-99)
[2020-04-15 20:30] LABS: Glucose,Whole Blood 298 mg/dL (75-99)
--- NOTE | 2020-04-16 00:23 | PN ---
PROGRESS NOTE This is a white female who is status post fem-fem bypass and iliac artery stent placement bilateral legs today. Her pulses are good. She had sugars in the 500s. We are going to give her 10 units plus scale for Accu-Chek protocol and 20 Lantus tonight due to sugars still in the 300s. Diabetic diet will be continued. CARDIOVASCULAR: S1, S2. LUNGS: Clear. GI: Soft. HEMATOLOGY: Negative Homans. ASSESSMENT: Uncontrolled diabetes mellitus. Start long-term insulin. Diabetic teaching. Discharge home in the morning. She will continue to be a metformin 500 daily. She is on her home medications. As far as diabetes, we are going to give her 10 units plus scale, 20 units of Levemir at night. Possible discharge home tomorrow to follow up next Sunday in my office. MMODL / IJN: [id number] /
[2020-04-16 06:55] LABS: Glucose,Whole Blood 245 mg/dL (75-99)
[2020-04-16] MEDS: INSULIN ASPART (NovoLOG) 100 UNIT/ML VIAL SQ SCH ×4 (07:06→13:00)
[2020-04-16] MEDS: PANTOPRAZOLE 40 MG TABLET PO SCH (07:08)
[2020-04-16] MEDS: IPRATROPIUM 0.5 MG/2.5 ML NEBU INHALATION SCH ×2 (08:44→12:17)
[2020-04-16] MEDS: SYMBICORT 80-4.5 MCG INHALER INHALATION SCH (08:44)
[2020-04-16 09:19] VITALS: RESP 20
[2020-04-16] MEDS: CHLORTHALIDONE 25 MG TAB PO SCH (09:20)
[2020-04-16] MEDS: ASPIRIN 81 MG PO SCH (09:20)
[2020-04-16] MEDS: MONTELUKAST 10 MG TAB PO SCH (09:21)
[2020-04-16] MEDS: atenoloL 50 MG TAB PO SCH (09:21)
[2020-04-16] MEDS: ATORVASTATIN 80 MG TAB PO SCH (09:21)
[2020-04-16] MEDS: CALCIUM CARB-VIT D 500MG-200UN 1 EACH TAB PO SCH (09:21)
[2020-04-16] MEDS: amLODIPine 10 MG TAB PO SCH (09:21)
[2020-04-16] MEDS: POTASSIUM CHLORIDE ER 20 MEQ TAB.ER PO SCH (09:21)
[2020-04-16] MEDS: MULTIVITAMINS, THERA 1 EACH TAB PO SCH (09:21)
[2020-04-16] MEDS: clonazePAM 1 MG TAB PO SCH (09:21)
[2020-04-16 11:11] VITALS: BP 147/68; PULSE 69; TEMP 97.8
[2020-04-16 11:58] LABS: Glucose,Whole Blood 366 mg/dL (75-99)
== END 2020-04-16 13:57 | disposition home or self-care (01) ==
LOC: CATHCVL 06:22 → 3SCARD 10:29 → CATHCVL 04-16 11:21
PROVIDERS: ADMIT Internal Medicine Interventional Cardiology; ATTEND Internal Medicine Interventional Cardiology
DX: I70.211 Atherosclerosis of native arteries of extremities with intermittent claudication, right leg (principal); I70.212 Atherosclerosis of native arteries of extremities with intermittent claudication, left leg; I70.8 Atherosclerosis of other arteries; E11.51 Type 2 diabetes mellitus with diabetic peripheral angiopathy without gangrene; E11.65 Type 2 diabetes mellitus with hyperglycemia; I10 Essential (primary) hypertension; Z79.4 Long term (current) use of insulin; Z79.899 Other long term (current) drug therapy; E78.5 Hyperlipidemia, unspecified
CPT/HCPCS: 37221; 85347; 37252; 37253; 80053; 80048; 85025 ×2; G0378; C1769 ×5; C1894 ×2; C1725 ×3; C1876 ×2; C1753; J2250; J2001; J1644; J1170; Q9966

== ENCOUNTER 2021-07-08 12:06 | Emergency (ER) | payer MEDICARE ==
[2021-07-08] MEDS ORDERED: SODIUM CHLORIDE 0.9% 500 ML 500 ML IV STA (20:03)
--- NOTE | 2021-07-08 20:04 | ED ---
General Adult HPI - General Chief complaint: Weakness Stated complaint: weakness, low back pain Time Seen by Provider: 07/08/21 19:38 Source: patient, RN notes reviewed Mode of arrival: ambulatory Limitations: no limitations - History of Present Illness Initial comments: 65-year-old female presents to the emergency Department with complaints of feeling poorly 1 week. Patient states she has had increased fatigue, decreased appetite, and body aches intermittently for the past week. States she has had a sore throat which has since resolved. Also reports a congested cough and a history of COPD. Reports using her nebulizer and inhaler per her regular home regimen. States she is vaccinated, but has not received her booster. Denies fever, chills, dizziness, chest pain, shortness of breath, difficulty breathing, abdominal pain, nausea, vomiting, diarrhea, constipation, dysuria, or hematuria. - Related Data Home Medications Medication Instructions Recorded Confirmed Atenolol/Chlorthalidone [Tenoretic 1 tab PO DAILY 02/20/14 04/14/20 50 Tablet] Omeprazole 40 mg PO DAILY 02/20/14 04/14/20 clonazePAM [Clonazepam] 1 mg PO TID 02/20/14 04/14/20 Calcium Carbonate/Vitamin D3 1 tab PO DAILY 07/14/14 04/14/20 [Calcium 600-Vit D3 400 Tablet] HYDROcodone/APAP 7.5-325MG [Muse 1 tab PO DAILY PRN 09/14/16 04/14/20 7.5-325] amLODIPine [Norvasc] 10 mg PO DAILY 09/14/16 04/14/20 Rosuvastatin Calcium [Crestor] 40 mg PO DAILY 01/10/17 04/14/20 Acetaminophen Tab [Tylenol] 500 mg PO Q4H PRN 01/27/20 04/09/20 Albuterol Nebulized [Ventolin 2.5 mg INHALATION RT-QID PRN 01/27/20 04/09/20 Nebulized] Albuterol Sulfate [Ventolin HFA] 2 puff INHALATION RT-QID PRN 01/27/20 04/09/20 Aspirin EC [Ecotrin Low Dose] 81 mg PO DAILY 01/27/20 04/14/20 Linaclotide [Linzess] 290 mcg PO DAILY PRN 01/27/20 04/09/20 Multivitamin [Multivitamins Adult 2 tab PO DAILY 01/27/20 04/14/20 Gummies] Potassium Chloride [K-Tab ER] 20 meq PO DAILY 04/09/20 04/14/20 Fluticasone/Umeclidin/Vilanter 1 inhalation INHALATION DAILY 04/14/20 04/14/20 [Betty Ellipta 100-62.5-25] Previous Rx's Medication Instructions Recorded Cyclobenzaprine [Flexeril] 5 mg PO TID PRN tab 01/29/20 Montelukast [Singulair] 10 mg PO DAILY tab 01/29/20 Clopidogrel Bisulfate [Plavix] 75 mg PO DAILY #90 tab 04/15/20 Insulin Aspart [NovoLOG] 0 units SQ ACHS PRN #1 vial 04/16/20 Insulin Aspart [NovoLOG] 15 units SQ AC-TID #1 vial 04/16/20 Insulin Detemir (Levemir) [Levemir] 30 unit SQ HS #1 vial 04/16/20 Allergies Allergy/AdvReac Type Severity Reaction Status Date / Time hydrocodone bitartrate AdvReac Nausea & Verified 07/08/21 14:00 [From Vicodin] Vomiting propoxyphene napsylate AdvReac Nausea & Verified 07/08/21 14:00 [From Darvocet-N 100] Vomiting Review of Systems ROS Statement: Those systems with pertinent positive or pertinent negative responses have been documented in the HPI. ROS Other: All systems not noted in ROS Statement are negative. Past Medical History Past Medical History: COPD, Deep Vein Thrombosis (DVT), Fibromyalgia, GERD/Reflux, Hyperlipidemia, Hypertension, Osteoarthritis (OA), Skin Disorder Additional Past Medical History / Comment(s): DIVERTICULITIS, HX KIDNEY STONE- still has it but it's never moved , Pneumonia, ROSACEA, DVT RLE 2007,gerson cat aracts, BILAT ILIAC ARTERIES BLOCKED PER PT History of Any Multi-Drug Resistant Organisms: None Reported Past Surgical History: Appendectomy, Bowel Resection, Heart Catheterization With Stent, Hernia Repair, Tubal Ligation Additional Past Surgical History / Comment(s): COLONOSCOPY, PARTIAL LT LOBECTOMY-(pt stated they thought i might of had tb but it was just scar tissue), D & C, 07-17-14 BOWEL RESECTION, [place] [facility] [place] , 12-18-17 lap robotic assisted repair of inc hernia Past Anesthesia/Blood Transfusion Reactions: No Reported Reaction Date of Last Stent Pl[place] [facility] [place] Psychological History: Anxiety, Panic Disorder Smoking Status: Former smoker Past Alcohol Use History: Occasional Past Drug Use History: None Reported - Past Family History Mother Family Medical History: Congestive Heart Failure (CHF) Father Family Medical History: Cancer Additional Family Medical History / Comment(s): TYPE OF CANCER NOT KNOWN General Exam Limitations: no limitations General appearance: alert, in no apparent distress (Well-developed, well- nourished female in no acute distress. Initial temperature 98.9, pulse 64, respirations 18, blood pressure 132/72, pulse ox 96% on room air.) ENT exam: Present: normal exam, normal oropharynx, mucous membranes moist Respiratory exam: Present: normal lung sounds bilaterally. Absent: respiratory distress, wheezes, rales, rhonchi, stridor Cardiovascular Exam: Present: regular rate, normal rhythm, normal heart sounds. Absent: systolic murmur, diastolic murmur, rubs, gallop, clicks GI/Abdominal exam: Present: soft, normal bowel sounds. Absent: distended, tenderness, guarding, rebound, rigid Neurological exam: Present: alert, oriented X3, CN II-XII intact Psychiatric exam: Present: anxious (Patient tearful and anxious. States she has been waiting several hours and has had nothing to eat. States she is scared about her diagnosis of Covid with her history of COPD. Patient is reassured and provided with meal.) Skin exam: Present: warm, dry, intact, normal color. Absent: rash Course Vital Signs 07/08/21 07/08/21 07/08/21 13:58 20:49 21:19 Temperature 98.9 F 98.4 F Pulse Rate 64 62 58 L Respiratory 18 18 20 Rate Blood Pressure 132/72 135/74 153/78 O2 Sat by Pulse 96 95 96 Oximetry - Reevaluation(s) Reevaluation #1: 07/08/21 20:15 Discussed monoclonal antibody infusion at length with patient. Questions answered, she verbalizes understanding and is agreeable. Medical Decision Making - Medical Decision Making 65-year-old female past medical history of COPD and CAD presents to the emergency department for evaluation of fatigue and body aches. Upon arrival, patient appears anxious and is tearful when discussing positive Covid test result. Patient's room air oxygen saturation is 95% or greater. She is afebrile, not tachypneic, nor tachycardic. Lung sounds are clear, though slightly diminished. Patient does have a congested cough but no increased work of breathing. Discussed the option of the monoclonal antibody infusion. Patient is hesitant but states she is encouraged to proceed after lengthy conversation. Patient tolerated infusion with no adverse side effects. Laboratory studies were obtained showing mild dehydration and hypokalemia at 3.4. Potassium was supplemented orally. IV fluids were administered. Chest x- ray shows chronic disease with no acute change. Patient was provided with a meal tray and given Tylenol for headache. States she is feeling better. Patient will be discharged home to follow up with her PCP or apron operator. Strict return parameters were discussed. Patient verbalizes understanding and agrees with this plan. Patient's care was discussed with my attending Dr. Mcghee - Lab Data Result diagrams: 07/08/21 20:48 07/08/21 20:48 Lab Results 07/08/21 07/08/21 07/08/21 Range/Units 14:05 20:48 20:48 WBC 3.9 (3.8-10.6) k/uL RBC 5.17 (3.80-5.40) m/uL Hgb 16.7 H (11.4-16.0) gm/dL Hct 48.5 H (34.0-46.0) % MCV 93.7 (80.0-100.0) fL MCH 32.2 (25.0-35.0) pg MCHC 34.4 (31.0-37.0) g/dL RDW 13.4 (11.5-15.5) % Plt Count 292 (150-450) k/uL MPV 7.1 Neutrophils % 66 % Lymphocytes % 19 % Monocytes % 10 % Eosinophils % 1 % Basophils % 1 % Neutrophils # 2.6 (1.3-7.7) k/uL Lymphocytes # 0.7 L (1.0-4.8) k/uL Monocytes # 0.4 (0-1.0) k/uL Eosinophils # 0.0 (0-0.7) k/uL Basophils # 0.0 (0-0.2) k/uL Sodium 133 L (137-145) mmol/L Potassium 3.4 L (3.5-5.1) mmol/L Chloride 92 L (98-107) mmol/L Carbon Dioxide 27 (22-30) mmol/L Anion Gap 14 mmol/L BUN 25 H (7-17) mg/dL Creatinine 0.97 (0.52-1.04) mg/dL Est GFR (CKD-EPI)AfAm 71 (>60 ml/min/1.73 sqM) Est GFR (CKD-EPI)NonAf 61 (>60 ml/min/1.73 sqM) Glucose 132 H (74-99) mg/dL Calcium 9.3 (8.4-10.2) mg/dL Coronavirus (PCR) Detected A (Not Detectd) - Radiology Data Radiology results: report reviewed, image reviewed Two-view chest x-ray was obtained. Report was reviewed in its entirety. Impression per Dr. Liz's pulmonary fibrotic changes. No acute lung disease. Normal heart. No change. Disposition Clinical Impression: COVID-19, Hypokalemia, Dehydration Disposition: HOME SELF-CARE Condition: Stable Instructions (If sedation given, give patient instructions): Coronavirus Disease 2019 (COVID-19) Additional Instructions: Continue taking your regular home medications as prescribed. Increase intake of fluids. Take Tylenol for fever and body aches. Take vitamin C, vitamin D, and zinc if you are not already taking a multivitamin. Call your PCP or apron operator to schedule a follow-up appointment via telephone or video visit. Return to the emergency department with any new, worsening, or concerning symptoms. Is patient prescribed a controlled substance at d/c from ED?: No Referrals: Gregorio Garber MD [Primary Care Provider] - 1-2 days Time of Disposition: 22:30
--- NOTE | 2021-07-08 20:22 | XR ---
EXAMINATION TYPE: XR chest 2V DATE OF EXAM: 07/08/2021 COMPARISON: 01/27/2020 HISTORY: Short of breath TECHNIQUE: 2 views FINDINGS: Heart is normal. Lungs are clear of consolidation. There is coarsening of interstitial carolyn ings. There are no hilar masses. Bony thorax is intact. IMPRESSION: Pulmonary fibrotic changes. No acute lung disease. Normal heart. No change.
[2021-07-08] MEDS ORDERED: SODIUM CHLORIDE 0.9% 50 ML IVPB ONE (20:30)
[2021-07-08] MEDS ORDERED: BAMLANIVIMAB (EUA) 700 MG, ETESEVIMAB (EUA) 1,400 MG in SODIUM CHLORIDE 0.9% 100 ML IVPB ONE (20:30)
[2021-07-08 21:12] LABS: Basophils % (A) 1 %; Eosinophils % (A) 1 %; HCT 48.5 % (34.0-46.0); HGB 16.7 gm/dL (11.4-16.0); Lymphocytes # (A) 0.7 k/uL (1.0-4.8); Lymphocytes % (A) 19 %; MCH 32.2 pg (25.0-35.0); MCHC 34.4 g/dL (31.0-37.0); MCV 93.7 fL (80.0-100.0); Mean Platelet Volume 7.1; Monocytes # (A) 0.4 k/uL (0-1.0); Monocytes % (A) 10 %; Neutrophils # (A) 2.6 k/uL (1.3-7.7); Neutrophils % (A) 66 %; Platelet Count 292 k/uL (150-450); RBC 5.17 m/uL (3.80-5.40); RDW 13.4 % (11.5-15.5); WBC 3.9 k/uL (3.8-10.6)
[2021-07-08] MEDS ORDERED: ACETAMINOPHEN TAB 500 MG TAB PO STA (21:29)
[2021-07-08 21:37] LABS: Calcium 9.3 mg/dL (8.4-10.2)
[2021-07-08 21:44] LABS: Potassium 3.4 mmol/L (3.5-5.1)
[2021-07-08] MEDS ORDERED: POTASSIUM CHLORIDE ER 20 MEQ TAB.ER PO STA (21:45)
[2021-07-08 23:14] VITALS: BP 130/78; PULSE 59; RESP 19; TEMP 97.7
== END 2021-07-08 22:59 | disposition home or self-care (01) ==
LOC: EC 12:06
DX: U07.1 COVID-19 (principal); E87.6 Hypokalemia; E86.0 Dehydration; I10 Essential (primary) hypertension; J44.9 Chronic obstructive pulmonary disease, unspecified; K21.9 Gastro-esophageal reflux disease without esophagitis; E78.5 Hyperlipidemia, unspecified; M19.90 Unspecified osteoarthritis, unspecified site; F41.9 Anxiety disorder, unspecified; Z87.891 Personal history of nicotine dependence; Z86.718 Personal history of other venous thrombosis and embolism; Z79.4 Long term (current) use of insulin; Z79.82 Long term (current) use of aspirin; Z79.51 Long term (current) use of inhaled steroids; Z79.899 Other long term (current) drug therapy
CPT/HCPCS: 36415; 80048; 85025; 87635; 71046; 99284; 96360; J3490

== ENCOUNTER 2021-09-22 13:40 | Emergency (ER) | payer MEDICARE ==
[2021-09-22 14:12] VITALS: TEMP 98
[2021-09-22] MEDS ORDERED: HYDROmorphone 0.5 MG/0.5 ML SYRINGE IVP STA (16:20)
[2021-09-22 16:24] LABS: Basophils # (A) 0.1 k/uL (0-0.2); Basophils % (A) 1 %; Eosinophils # (A) 0.1 k/uL (0-0.7); Eosinophils % (A) 1 %; HCT 44.9 % (34.0-46.0); HGB 15.4 gm/dL (11.4-16.0); Lymphocytes # (A) 0.7 k/uL (1.0-4.8); Lymphocytes % (A) 8 %; MCH 31.7 pg (25.0-35.0); MCHC 34.2 g/dL (31.0-37.0); MCV 92.8 fL (80.0-100.0); Mean Platelet Volume 7.4; Monocytes # (A) 0.5 k/uL (0-1.0); Monocytes % (A) 6 %; Neutrophils # (A) 6.8 k/uL (1.3-7.7); Neutrophils % (A) 80 %; Platelet Count 358 k/uL (150-450); RBC 4.84 m/uL (3.80-5.40); WBC 8.5 k/uL (3.8-10.6)
[2021-09-22 16:27] LABS: Appearance,Urine Clear (Clear); Bacteria,Urine Rare /hpf; Bilirubin,Urine Negative (Negative); Blood,Urine Trace (Negative); Color,Urine Yellow; Glucose,Urine (UA) Negative (Negative); Hyaline Casts,Urine 1 /lpf (0-2); Ketones,Urine Negative (Negative); Leukocyte Esterase,Urine Small (Negative); Mucus,Urine Rare /hpf; Nitrite,Urine Negative (Negative); Protein,Urine Trace (Negative); RBC,Urine 5 /hpf (0-5); Specific Gravity,Urine 1.021 (1.001-1.035); Squamous Epithelial Cell,Urine 2 /hpf (0-4); WBC,Urine 2 /hpf (0-5)
[2021-09-22 16:45] LABS: Albumin 4.6 g/dL (3.5-5.0); C Reactive Protein 1.8 mg/dL (<1.0); Calcium 9.3 mg/dL (8.4-10.2); Total Bilirubin 1.1 mg/dL (0.2-1.3); Total Protein 8.2 g/dL (6.3-8.2)
[2021-09-22 17:13] LABS: Erythrocyte Sedimentation Rate 33 mm/hr (0-20)
--- NOTE | 2021-09-22 18:40 | CT ---
EXAMINATION TYPE: CT brain cspine wo con CT DLP: 670.2 mGycm, Automated exposure control for dose reduction was used. DATE OF EXAM: 09/22/2021 6:00 PM COMPARISON: CT soft tissue neck 01/06/2014. CLINICAL INDICATION:Female, 65 years old with history of headache; TECHNIQUE: Brain: Multiple axial CT images of the brain were obtained without IV contrast. Cspine: Axial CT images from the skull base to the inferior aspect of T2 we obtained without intraven ous contrast. Coronal and sagittal reformatted images were also reviewed. FINDINGS: Brain: Extra-axial spaces: No abnormal extra-axial fluid collections. Ventricular system: Within normal limits Cerebral parenchyma: No acute intraparenchymal hemorrhage or mass effect. The hoover-white junction is well differentiated. Cerebellum: Unremarkable. Mass effect: No evidence of midline shift. Intracranial vasculature: Atherosclerotic calcifications of the intracranial vessels. Soft tissues: Normal. Calvarium/osseous structures: No depressed skull fracture. Paranasal sinuses and mastoid air cells: Clear. Visualized orbits: Bilateral aphakia Cervical spine: Fracture: None. Osseous structures: Multilevel degenerative disc disease changes with endplate spurring and disc oste ophyte complex's. Vertebral alignment: Within normal limits. Spinal canal/Neural Foramina: No evidence of significant spinal canal narrowing. Neck soft tissues: Prevertebral soft tissues are within normal limits. Cystic lesion seen near the ri ght nostril measuring up to 19 mm. Measuring 90 Hounsfield units. Other: The airway is patent. Reticulation peripherally with1 paraseptal emphysema changes. There is a therosclerosis of the arterial vasculature. IMPRESSION: 1. No acute intracranial process. 2. No evidence of cervical spine fracture. 3. Mild multilevel degenerative disc disease. 4. Subcutaneous lesion near the right nostril ostium measuring up to 19 mm correlate with physical ex am. This may represent proteinaceous sebaceous cyst.7
[2021-09-22 18:44] VITALS: BP 130/76; PULSE 69; RESP 18
--- NOTE | 2021-09-22 18:45 | CT ---
EXAMINATION TYPE: CT angio head neck CT DLP: 670.2 mGycm, Automated exposure control for dose reduction was used. DATE OF EXAM: 09/22/2021 6:10 PM COMPARISON: CT brain 08/25/2021. CLINICAL INDICATION:Female, 65 years old with history of headache TECHNIQUE: Axially acquired helical CT angiogram of the head and neck was obtained with contrast util izing 75 cc of [id number]-[id number] administered intravenously. Axial images are supplemented with 3D reconstru ctions which were post-processed at an independent workstation. NASCET criteria used. FINDINGS: CTA HEAD: No evidence of acute intracranial hemorrhage, mass effect, or midline shift. The ventricles, sulci, a nd cisterns are unremarkable. The visualized portions of the internal carotid arteries, middle cerebral arteries, anterior cerebral arteries, and posterior cerebral arteries are patent. The basilar and vertebral arteries are patent. There is dominant left vertebral artery. The right shabnam tebral artery ends as the posterior inferior cerebellar artery. CTA NECK: Internal carotid arteries demonstrate and medialized course posterior to the pharynx. Right Carotid System: The common carotid artery and external carotid artery are patent. The carotid bifurcation demonstrate s atherosclerotic plaquing with at least 50% stenosis that extends into the proximal internal carotid artery. Left Carotid System: The common carotid artery and external carotid artery are patent. The carotid bifurcation demonstrate s soft atherosclerotic plaquing with at least 25 stenosis. The remaining portions of the internal car otid artery demonstrate normal size without significant narrowing. Vertebral arteries are patent without evidence hemodynamically significant stenosis. There is dominan t left vertebral artery. The right vertebral artery ends as the posterior inferior cerebellar artery. There is a three-vessel aortic arch. The origins of the great vessels are patent. No evidence of hemo dynamically significant stenosis. Paraseptal emphysema changes are seen within lung apices. IMPRESSION: 1. No evidence of dissection of the cervical internal carotid arteries or vertebral arteries. 2. No evidence of high-grade stenosis or intracranial aneurysm. 3. Carotid bifurcation atherosclerotic disease throughout and at least 50% stenosis on the right and 25% stenosis on the left. 4. Emphysema changes most pronounced in the lung apices.
--- NOTE | 2021-09-22 19:13 | ED ---
General Adult HPI - General Chief complaint: Headache Stated complaint: Headache/Back pain Time Seen by Provider: 09/22/21 14:42 Source: patient Mode of arrival: ambulatory Limitations: no limitations - History of Present Illness Initial comments: This 65-year-old female presents to the emergency department with headache radiating down the lateral sides of her neck and back. Patient states she has had a posterior headache on the crown of her head 1 week and over the last 2 days has been experiencing pain radiating down bilateral sides of her neck and down her back. Patient denies a headache worsening with movement, bending or pressure. Patient states the headache has been pretty constant and is rated as 6/10. Patient describes the headache as aching along with her neck pain as aching. Patient denies any blurred or double vision. She denies any bowel or bladder incontinence/retention. Patient denies any radicular pain, tingling or numbness down bilateral upper or lower extremities. She denies any saddle anesthesia, fever or IV drug use. Patient denies any pain in her neck with head movement. She denies any chest pain, shortness of breath, abdominal pain, nausea, vomiting, change in bowel or bladder, cough, congestion, one-sided weakness, change in appetite. - Related Data Home Medications Medication Instructions Recorded Confirmed clonazePAM [Clonazepam] 1 mg PO TID 02/20/14 09/22/21 HYDROcodone/APAP 7.5-325MG [[place] 1 tab PO DAILY PRN 09/14/16 09/22/21 7.5-325] Rosuvastatin Calcium [Crestor] 40 mg PO DAILY 01/10/17 09/22/21 Acetaminophen Tab [Tylenol] 500 mg PO Q4H PRN 01/27/20 09/22/21 Albuterol Sulfate [Ventolin HFA] 2 puff INHALATION RT-QID PRN 01/27/20 09/22/21 Aspirin EC [Ecotrin Low Dose] 81 mg PO DAILY 01/27/20 09/22/21 Atenolol/Chlorthalidone 1 tab PO DAILY 09/22/21 09/22/21 [Atenolol/Chlorthalidone 50-25] Ibuprofen [Motrin Ib] 400 mg PO Q8H PRN 09/22/21 09/22/21 Multivitamins, Thera [Multivitamin 1 tab PO DAILY 09/22/21 09/22/21 (formulary)] Omeprazole 40 mg PO DAILY 09/22/21 09/22/21 Sertraline [Zoloft] 25 mg PO DAILY 09/22/21 09/22/21 amLODIPine [Norvasc] 10 mg PO DAILY 09/22/21 09/22/21 metFORMIN HCL 500 mg PO DAILY 09/22/21 09/22/21 Previous Rx's Medication Instructions Recorded Clopidogrel Bisulfate [Plavix] 75 mg PO DAILY #90 tab 04/15/20 Allergies Allergy/AdvReac Type Severity Reaction Status Date / Time hydrocodone bitartrate AdvReac Nausea & Verified 09/22/21 17:51 [From Vicodin] Vomiting propoxyphene napsylate AdvReac Nausea & Verified 09/22/21 17:51 [From Darvocet-N 100] Vomiting Review of Systems ROS Statement: Those systems with pertinent positive or pertinent negative responses have been documented in the HPI. ROS Other: All systems not noted in ROS Statement are negative. Past Medical History Past Medical History: COPD, Deep Vein Thrombosis (DVT), Fibromyalgia, GERD/Reflux, Hyperlipidemia, Hypertension, Osteoarthritis (OA), Skin Disorder Additional Past Medical History / Comment(s): DIVERTICULITIS, HX KIDNEY STONE- still has it but it's never moved , Pneumonia, ROSACEA, DVT RLE 2007,gerson cataracts, BILAT ILIAC ARTERIES BLOCKED PER PT History of Any Multi-Drug Resistant Organisms: None Reported Past Surgical History: Appendectomy, Bowel Resection, Heart Catheterization With Stent, Hernia Repair, Tubal Ligation Additional Past Surgical History / Comment(s): COLONOSCOPY, PARTIAL LT LOBECTOMY-(pt stated they thought i might of had tb but it was just scar tissue), D & C, 07-17-14 BOWEL RESECTION, HEART CATH W 2 STENTS AT [facility] [place] 11-15-15 , 12-18-17 lap robotic assisted repair of inc hernia Past Anesthesia/Blood Transfusion Reactions: No Reported Reaction Date of Last Stent Placement:: 11-15-15 AT [facility] [place] Past Psychological History: Anxiety, Panic Disorder Smoking Status: Former smoker Past Alcohol Use History: Occasional Past Drug Use History: None Reported - Past Family History Mother Family Medical History: Congestive Heart Failure (CHF) Father Family Medical History: Cancer Additional Family Medical History / Comment(s): TYPE OF CANCER NOT KNOWN General Exam Limitations: no limitations General appearance: alert, in no apparent distress Head exam: Present: atraumatic, normocephalic, normal inspection, other (No pain over the temporal region or TMJ area bilaterally. No sign of temporal arteritis) Eye exam: Present: normal appearance, PERRL, EOMI. Absent: scleral icterus, conjunctival injection, periorbital swelling ENT exam: Present: normal exam, mucous membranes moist Neck exam: Present: normal inspection, tenderness (Paraspinal tenderness to bilateral sides of cervical spine. No vertebral tenderness), full ROM. Absent: meningismus, lymphadenopathy Respiratory exam: Present: normal lung sounds bilaterally. Absent: respiratory distress, wheezes, rales, rhonchi, stridor Cardiovascular Exam: Present: regular rate, normal rhythm, normal heart sounds. Absent: systolic murmur, diastolic murmur, rubs, gallop, clicks GI/Abdominal exam: Present: soft, normal bowel sounds. Absent: distended, tenderness, guarding, rebound, rigid Extremities exam: Present: normal inspection, full ROM, normal capillary refill, other (Patient denies any trouble walking, tingling or numbness radiating down any of her extremities. 5 out of 5 strength bilateral upper and lower extremities). Absent: tenderness, pedal edema, joint swelling, calf tenderness Back exam: Present: normal inspection, full ROM, other (Patient states the pain does radiate from her headache and travel down her back, however she is not tender to palpation over any part of her back or vertebrae). Absent: CVA tenderness (R), CVA tenderness (L), paraspinal tenderness, vertebral tenderness Neurological exam: Present: alert, oriented X3, CN II-XII intact Skin exam: Present: warm, dry, intact, normal color. Absent: rash Course Vital Signs 09/22/21 09/22/21 14:09 18:12 Temperature 98 F Pulse Rate 67 69 Respiratory 22 18 Rate Blood Pressure 128/68 130/76 O2 Sat by Pulse 94 L 94 L Oximetry Medical Decision Making - Medical Decision Making This 65-year-old female presents emergency Department with headache 1 week that has been radiating down her neck and back over the last 2 days. Patient with ESR 33, C-reactive protein 1.8, urine with small leukocyte esterase, rare bacteria and rare mucous. CT angiography and CT head and cervical spine without any acute abnormalities. Cyst was noted on the left side of patient's nose and she is aware of this cyst and has talked to her primary care provider about this. She was given 1 dose of 0.5 mg Dilaudid in the emergency department and had sign ificant decrease in her pain. Prior to discharge patient's pain was 2/10. Patient states she does have [place] at home that she rarely takes, I did instruct her to take [place] as directed until she is seen by her primary care doctor early next week. Patient instructed to return to the emergency department if her headache and back pain return. Patient does have follow-up appointment with her primary care provider early next week and instructed to go to that appointment. Strict return precautions were discussed with patient. I did instruct patient to return if she experiences a fever, saddle anesthesia, bowel or bladder retention/incontinence, any radicular/tingling/numbness radiating down her legs or arms, any visual changes or weakness. I instructed patient to return with any new, worsening, or concerning symptoms. Patient verbally agreed to plan. Patient home in stable condition. Case discussed in detail my attending, who also assessed and evaluated patient. - Lab Data Result diagrams: 09/22/21 16:08 09/22/21 16:08 Lab Results 09/22/21 09/22/21 09/22/21 Range/Units 16:08 16:08 16:08 WBC 8.5 (3.8-10.6) k/uL RBC 4.84 (3.80-5.40) m/uL Hgb 15.4 (11.4-16.0) gm/dL Hct 44.9 (34.0-46.0) % MCV 92.8 (80.0-100.0) fL MCH 31.7 (25.0-35.0) pg MCHC 34.2 (31.0-37.0) g/dL RDW 15.0 (11.5-15.5) % Plt Count 358 (150-450) k/uL MPV 7.4 Neutrophils % 80 % Lymphocytes % 8 % Monocytes % 6 % Eosinophils % 1 % Basophils % 1 % Neutrophils # 6.8 (1.3-7.7) k/uL Lymphocytes # 0.7 L (1.0-4.8) k/uL Monocytes # 0.5 (0-1.0) k/uL Eosinophils # 0.1 (0-0.7) k/uL Basophils # 0.1 (0-0.2) k/uL ESR 33 H (0-20) mm/hr Sodium 134 L (137-145) mmol/L Potassium 4.0 (3.5-5.1) mmol/L Chloride 97 L (98-107) mmol/L Carbon Dioxide 23 (22-30) mmol/L Anion Gap 14 mmol/L BUN 20 H (7-17) mg/dL Creatinine 0.89 (0.52-1.04) mg/dL Est GFR (CKD-EPI)AfAm 78 (>60 ml/min/1.73 sqM) Est GFR (CKD-EPI)NonAf 68 (>60 ml/min/1.73 sqM) Glucose 123 H (74-99) mg/dL Calcium 9.3 (8.4-10.2) mg/dL Total Bilirubin 1.1 (0.2-1.3) mg/dL AST 35 (14-36) U/L ALT 20 (4-34) U/L Alkaline Phosphatase 95 (38-126) U/L C-Reactive Protein 1.8 H (<1.0) mg/dL Total Protein 8.2 (6.3-8.2) g/dL Albumin 4.6 (3.5-5.0) g/dL Urine Color Yellow Urine Appearance Clear (Clear) Urine pH 6.0 (5.0-8.0) Ur Specific [place] 1.021 (1.001-1.035) Urine Protein Trace H (Negative) Urine Glucose (UA) Negative (Negative) Urine Ketones Negative (Negative) Urine Blood Trace H (Negative) Urine Nitrite Negative (Negative) Urine Bilirubin Negative (Negative) Urine Urobilinogen 2.0 (<2.0) mg/dL Ur Leukocyte Esterase Small H (Negative) Urine RBC 5 (0-5) /hpf Urine WBC 2 (0-5) /hpf Ur Squamous Epith Cells 2 (0-4) /hpf Urine Bacteria Rare H (None) /hpf Hyaline Casts 1 (0-2) /lpf Urine Mucus Rare H (None) /hpf Disposition Clinical Impression: Headache Disposition: HOME SELF-CARE Condition: Stable Instructions (If sedation given, give patient instructions): Acute Headache (ED) Additional Instructions: Return to the emergency department if your symptoms return or any new, worsening, or concerning symptoms arise. Follow-up with your primary care provider at your appointment you have scheduled for early next week. Take the [place] that you have at home for pain relief as directed. Is patient prescribed a controlled substance at d/c from ED?: No Referrals: Gregorio Garber MD [Primary Care Provider] - 1-2 days Time of Disposition: 19:31
== END 2021-09-22 19:46 | disposition home or self-care (01) ==
LOC: EC 13:40
DX: R51.9 Headache, unspecified (principal); J44.9 Chronic obstructive pulmonary disease, unspecified; M79.7 Fibromyalgia; K21.9 Gastro-esophageal reflux disease without esophagitis; E78.5 Hyperlipidemia, unspecified; I10 Essential (primary) hypertension; M19.90 Unspecified osteoarthritis, unspecified site; F41.9 Anxiety disorder, unspecified; Z79.82 Long term (current) use of aspirin; Z79.84 Long term (current) use of oral hypoglycemic drugs; Z90.2 Acquired absence of lung [part of]; Z88.5 Allergy status to narcotic agent; Z86.718 Personal history of other venous thrombosis and embolism; Z79.899 Other long term (current) drug therapy; Z87.442 Personal history of urinary calculi; Z90.49 Acquired absence of other specified parts of digestive tract; Z98.51 Tubal ligation status; Z87.891 Personal history of nicotine dependence
CPT/HCPCS: 99284; 96374; 36415; 80053; 85652; 85025; 86140; 81001; 72125; 70496; 70450; 70498; J1170; Q9967

== ENCOUNTER 2022-06-28 17:26 | Inpatient (IN) | payer MEDICARE ==
[2022-06-28] MEDS ORDERED: IPRATROPIUM-ALBUTEROL 3 ML NEB INHALATION STA (17:50)
[2022-06-28] MEDS ORDERED: methylPREDNISolone SOD SUCCI 125 MG/2 ML VIAL IV STA (17:50)
--- NOTE | 2022-06-28 17:53 | ED ---
General Adult HPI - General Chief complaint: Shortness of Breath Stated complaint: SOB, cough Time Seen by Provider: 06/28/22 17:42 Source: patient, RN notes reviewed Mode of arrival: wheelchair Limitations: no limitations - History of Present Illness Initial comments: Patient is a pleasant 66-year-old female presenting to the emergency department with cough and dyspnea. Patient has had cough for the past one week. Cough has been with occasional noncolored sputum. Patient has felt short of breath the past day or 2, more so today. Symptoms do worsen with exertion. No leg pain or leg swelling. Patient states there is some discomfort with cough only in the chest. - Related Data Home Medications Medication Instructions Recorded Confirmed clonazePAM [Clonazepam] 1 mg PO TID 02/20/14 09/22/21 HYDROcodone/APAP 7.5-325MG [[place] 1 tab PO DAILY PRN 09/14/16 09/22/21 7.5-325] Rosuvastatin Calcium [Crestor] 40 mg PO DAILY 01/10/17 09/22/21 Acetaminophen Tab [Tylenol] 500 mg PO Q4H PRN 01/27/20 09/22/21 Albuterol Sulfate [Ventolin HFA] 2 puff INHALATION RT-QID PRN 01/27/20 09/22/21 Aspirin EC [Ecotrin Low Dose] 81 mg PO DAILY 01/27/20 09/22/21 Atenolol/Chlorthalidone 1 tab PO DAILY 09/22/21 09/22/21 [Atenolol/Chlorthalidone 50-25] Ibuprofen [Motrin Ib] 400 mg PO Q8H PRN 09/22/21 09/22/21 Multivitamins, Thera [Multivitamin 1 tab PO DAILY 09/22/21 09/22/21 (formulary)] Omeprazole 40 mg PO DAILY 09/22/21 09/22/21 Sertraline [Zoloft] 25 mg PO DAILY 09/22/21 09/22/21 amLODIPine [Norvasc] 10 mg PO DAILY 09/22/21 09/22/21 metFORMIN HCL 500 mg PO DAILY 09/22/21 09/22/21 Previous Rx's Medication Instructions Recorded Clopidogrel Bisulfate [Plavix] 75 mg PO DAILY #90 tab 04/15/20 Allergies Allergy/AdvReac Type Severity Reaction Status Date / Time hydrocodone bitartrate AdvReac Nausea & Verified 06/28/22 17:34 [From Vicodin] Vomiting propoxyphene napsylate AdvReac Nausea & Verified 06/28/22 17:34 [From Darvocet-N 100] Vomiting Review of Systems ROS Statement: Those systems with pertinent positive or pertinent negative responses have been documented in the HPI. ROS Other: All systems not noted in ROS Statement are negative. Constitutional: Denies: fever Eyes: Denies: eye pain ENT: Denies: ear pain Respiratory: Reports: as per HPI, cough, dyspnea Cardiovascular: Reports: as per HPI Endocrine: Reports: fatigue Gastrointestinal: Denies: abdominal pain Genitourinary: Denies: dysuria Musculoskeletal: Denies: back pain Skin: Denies: rash Neurological: Denies: weakness Past Medical History Past Medical History: COPD, Deep Vein Thrombosis (DVT), Fibromyalgia, GERD/Reflux, Hyperlipidemia, Hypertension, Osteoarthritis (OA), Skin Disorder Additional Past Medical History / Comment(s): DIVERTICULITIS, HX KIDNEY STONE- still has it but it's never moved , Pneumonia, ROSACEA, DVT RLE 2007,gerson cataracts, BILAT ILIAC ARTERIES BLOCKED PER PT History of Any Multi-Drug Resistant Organisms: None Reported Past Surgical History: Appendectomy, Bowel Resection, Heart Catheterization With Stent, Hernia Repair, Tubal Ligation Additional Past Surgical History / Comment(s): COLONOSCOPY, PARTIAL LT LOBECTOM Y-(pt stated they thought i might of had tb but it was just scar tissue), D & C, 07-17-14 BOWEL RESECTION, HEART CATH W 2 STENTS AT [facility] [place] 11-15-15 , 12-18-17 lap robotic assisted repair of inc hernia Past Anesthesia/Blood Transfusion Reactions: No Reported Reaction Date of Last Stent Placement:: 11-15-15 AT [facility] [place] Past Psychological History: Anxiety, Panic Disorder Smoking Status: Former smoker Past Alcohol Use History: Occasional Past Drug Use History: None Reported - Past Family History Mother Family Medical History: Congestive Heart Failure (CHF) Father Family Medical History: Cancer Additional Family Medical History / Comment(s): TYPE OF CANCER NOT KNOWN General Exam Limitations: no limitations General appearance: alert, in no apparent distress Head exam: Present: normocephalic Eye exam: Present: normal appearance Neck exam: Present: normal inspection Respiratory exam: Present: decreased breath sounds Cardiovascular Exam: Present: regular rate, normal rhythm GI/Abdominal exam: Present: soft. Absent: distended, tenderness Extremities exam: Present: normal inspection. Absent: pedal edema, calf tenderness Neurological exam: Present: alert Psychiatric exam: Present: normal affect, normal mood Skin exam: Present: normal color Course Vital Signs 06/28/22 06/28/22 06/28/22 17:27 19:25 19:35 Temperature 98.8 F Pulse Rate 69 71 70 Respiratory 22 Rate Blood Pressure 176/65 O2 Sat by Pulse 96 Oximetry EKG Findings - EKG Results: EKG: interpreted by ERMD (Q wave in V1.), sinus rhythm, normal axis, normal ST/T Medical Decision Making - Medical Decision Making Patient reevaluated and slightly improved. Patient updated on results and plan. Case discussed with Dr. Garber, who will admit his patient. - Lab Data Result diagrams: 06/28/22 18:00 06/28/22 18:32 Lab Results 06/28/22 06/28/22 06/28/22 Range/Units 18:00 18:00 18:00 WBC 11.0 H (3.8-10.6) k/uL RBC 4.97 (3.80-5.40) m/uL Hgb 15.2 (11.4-16.0) gm/dL Hct 45.7 (34.0-46.0) % MCV 91.9 (80.0-100.0) fL MCH 30.6 (25.0-35.0) pg MCHC 33.3 (31.0-37.0) g/dL RDW 14.2 (11.5-15.5) % Plt Count 290 (150-450) k/uL MPV 8.0 Neutrophils % 88 % Lymphocytes % 2 % Monocytes % 6 % Eosinophils % 1 % Basophils % 1 % Neutrophils # 9.6 H (1.3-7.7) k/uL Lymphocytes # 0.3 L (1.0-4.8) k/uL Monocytes # 0.7 (0-1.0) k/uL Eosinophils # 0.1 (0-0.7) k/uL Basophils # 0.1 (0-0.2) k/uL PT 11.0 (9.0-12.0) sec INR 1.0 (<1.2) APTT 28.4 (22.0-30.0) sec Sodium (137-145) mmol/L Potassium (3.5-5.1) mmol/L Chloride (98-107) mmol/L Carbon Dioxide (22-30) mmol/L Anion Gap mmol/L BUN (7-17) mg/dL Creatinine (0.52-1.04) mg/dL Est GFR (CKD-EPI)AfAm (>60 ml/min/1.73 sqM) Est GFR (CKD-EPI)NonAf (>60 ml/min/1.73 sqM) Glucose (74-99) mg/dL Plasma Lactic Acid Florian 1.7 (0.7-2.0) mmol/L Calcium (8.4-10.2) mg/dL Total Bilirubin (0.2-1.3) mg/dL AST (14-36) U/L ALT (4-34) U/L Alkaline Phosphatase (38-126) U/L Troponin I (0.000-0.034) ng/mL NT-Pro-B Natriuret Pep pg/mL Total Protein (6.3-8.2) g/dL Albumin (3.5-5.0) g/dL Influenza Type A (PCR) (Not Detectd) Influenza Type B (PCR) (Not Detectd) RSV (PCR) (Not Detectd) SARS-CoV-2 (PCR) (Not Detectd) 06/28/22 06/28/22 06/28/22 Range/Units 18:00 18:00 18:00 WBC (3.8-10.6) k/uL RBC (3.80-5.40) m/uL Hgb (11.4-16.0) gm/dL Hct (34.0-46.0) % MCV (80.0-100.0) fL MCH (25.0-35.0) pg MCHC (31.0-37.0) g/dL RDW (11.5-15.5) % Plt Count (150-450) k/uL MPV Neutrophils % % Lymphocytes % % Monocytes % % Eosinophils % % Basophils % % Neutrophils # (1.3-7.7) k/uL Lymphocytes # (1.0-4.8) k/uL Monocytes # (0-1.0) k/uL Eosinophils # (0-0.7) k/uL Basophils # (0-0.2) k/uL PT (9.0-12.0) sec INR (<1.2) APTT (22.0-30.0) sec Sodium (137-145) mmol/L Potassium (3.5-5.1) mmol/L Chloride (98-107) mmol/L Carbon Dioxide (22-30) mmol/L Anion Gap mmol/L BUN (7-17) mg/dL Creatinine (0.52-1.04) mg/dL Est GFR (CKD-EPI)AfAm (>60 ml/min/1.73 sqM) Est GFR (CKD-EPI)NonAf (>60 ml/min/1.73 sqM) Glucose (74-99) mg/dL Plasma Lactic Acid Florian (0.7-2.0) mmol/L Calcium (8.4-10.2) mg/dL Total Bilirubin (0.2-1.3) mg/dL AST (14-36) U/L ALT (4-34) U/L Alkaline Phosphatase (38-126) U/L Troponin I 0.021 (0.000-0.034) ng/mL NT-Pro-B Natriuret Pep 802 pg/mL Total Protein (6.3-8.2) g/dL Albumin (3.5-5.0) g/dL Influenza Type A (PCR) Not Detected (Not Detectd) Influenza Type B (PCR) Not Detected (Not Detectd) RSV (PCR) Not Detected (Not Detectd) SARS-CoV-2 (PCR) Not Detected (Not Detectd) 06/28/22 Range/Units 18:32 WBC (3.8-10.6) k/uL RBC (3.80-5.40) m/uL Hgb (11.4-16.0) gm/dL Hct (34.0-46.0) % MCV (80.0-100.0) fL MCH (25.0-35.0) pg MCHC (31.0-37.0) g/dL RDW (11.5-15.5) % Plt Count (150-450) k/uL MPV Neutrophils % % Lymphocytes % % Monocytes % % Eosinophils % % Basophils % % Neutrophils # (1.3-7.7) k/uL Lymphocytes # (1.0-4.8) k/uL Monocytes # (0-1.0) k/uL Eosinophils # (0-0.7) k/uL Basophils # (0-0.2) k/uL PT (9.0-12.0) sec INR (<1.2) APTT (22.0-30.0) sec Sodium 135 L (137-145) mmol/L Potassium 3.9 (3.5-5.1) mmol/L Chloride 101 (98-107) mmol/L Carbon Dioxide 25 (22-30) mmol/L Anion Gap 9 mmol/L BUN 13 (7-17) mg/dL Creatinine 0.87 (0.52-1.04) mg/dL Est GFR (CKD-EPI)AfAm 80 (>60 ml/min/1.73 sqM) Est GFR (CKD-EPI)NonAf 69 (>60 ml/min/1.73 sqM) Glucose 129 H (74-99) mg/dL Plasma Lactic Acid Florian (0.7-2.0) mmol/L Calcium 9.0 (8.4-10.2) mg/dL Total Bilirubin 0.7 (0.2-1.3) mg/dL AST 24 (14-36) U/L ALT 21 (4-34) U/L Alkaline Phosphatase 122 (38-126) U/L Troponin I (0.000-0.034) ng/mL NT-Pro-B Natriuret Pep pg/mL Total Protein 7.6 (6.3-8.2) g/dL Albumin 4.3 (3.5-5.0) g/dL Influenza Type A (PCR) (Not Detectd) Influenza Type B (PCR) (Not Detectd) RSV (PCR) (Not Detectd) SARS-CoV-2 (PCR) (Not Detectd) - Radiology Data Interpreted by me: Chest x-ray shows interstitial changes which may be increased compared to previous dated 07/08/2021. Disposition Clinical Impression: COPD (chronic obstructive pulmonary disease) Disposition: ADMITTED IP TO THIS HOSP Is patient prescribed a controlled substance at d/c from ED?: No Referrals: Gregorio Garber MD [Primary Care Provider] - 1-2 days Time of Disposition: 20:00
[2022-06-28] MEDS ORDERED: ACETAMINOPHEN TAB 500 MG TAB PO STA (18:05)
[2022-06-28 18:25] LABS: Partial Thromboplastin Time 28.4 sec (22.0-30.0)
[2022-06-28 18:32] LABS: Basophils # (A) 0.1 k/uL (0-0.2); Basophils % (A) 1 %; Eosinophils # (A) 0.1 k/uL (0-0.7); Eosinophils % (A) 1 %; HCT 45.7 % (34.0-46.0); HGB 15.2 gm/dL (11.4-16.0); Lymphocytes # (A) 0.3 k/uL (1.0-4.8); Lymphocytes % (A) 2 %; MCH 30.6 pg (25.0-35.0); MCHC 33.3 g/dL (31.0-37.0); MCV 91.9 fL (80.0-100.0); Monocytes # (A) 0.7 k/uL (0-1.0); Monocytes % (A) 6 %; Neutrophils # (A) 9.6 k/uL (1.3-7.7); Neutrophils % (A) 88 %; Platelet Count 290 k/uL (150-450); RBC 4.97 m/uL (3.80-5.40); RDW 14.2 % (11.5-15.5)
[2022-06-28 18:48] LABS: Albumin 4.3 g/dL (3.5-5.0); Potassium 3.9 mmol/L (3.5-5.1); Total Bilirubin 0.7 mg/dL (0.2-1.3); Total Protein 7.6 g/dL (6.3-8.2)
--- NOTE | 2022-06-28 18:58 | XR ---
EXAMINATION TYPE: XR chest 2V DATE OF EXAM: 06/28/2022 6:44 PM COMPARISON: Chest radiographs from 07/08/2021. TECHNIQUE: XR chest 2V Frontal and lateral views of the chest. CLINICAL INDICATION:Female, 66 years old with history of difficulty breathing; FINDINGS: Lungs/Pleura: Increased interstitial lung markings which may have an increased hazy opacities of the lungs in today's exam. There is no evidence of pleural effusion, focal consolidation, or pneumothorax . Pulmonary vascularity: Unremarkable. Heart/mediastinum: Cardiomediastinal silhouette is enlarged and stable. Musculoskeletal: No acute osseous pathology. IMPRESSION: Interstitial lung disease throughout the lungs. Correlate for superimposed atypical infection.
[2022-06-28] MEDS ORDERED: ACETAMINOPHEN TAB 325 MG TAB PO PRN (20:01)
[2022-06-28] MEDS ORDERED: NALOXONE 0.4 MG/ML 1 ML VIAL IVP PRN (20:01)
[2022-06-28] MEDS ORDERED: IPRATROPIUM-ALBUTEROL 3 ML NEB INHALATION PRN (20:01)
[2022-06-28] MEDS ORDERED: DEXTROSE 50% SYRINGE 50 ML IVP PRN ×2 (22:56)
[2022-06-28] MEDS: methylPREDNISolone SOD SUCCI 125 MG/2 ML VIAL IV SCH (23:31)
[2022-06-28] MEDS: AZITHROMYCIN 500 MG TAB PO SCH (23:31)
[2022-06-28] MEDS: SERTRALINE 50 MG TAB PO SCH (23:31)
[2022-06-28] MEDS: clonazePAM 1 MG TAB PO SCH (23:31)
[2022-06-28] MEDS: HYDROcodone/APAP 7.5-325MG 1 EACH TAB PO PRN (23:36)
[2022-06-29] MEDS: methylPREDNISolone SOD SUCCI 125 MG/2 ML VIAL IV SCH ×4 (06:18→23:29)
[2022-06-29 06:23] LABS: Glucose,Whole Blood 299 mg/dL (70-110)
--- NOTE | 2022-06-29 06:42 | HP ---
HISTORY AND PHYSICAL HISTORY OF PRESENT ILLNESS: 66-year-old white female, cough, congestion, shortness of breath for the past week, worsening shortness of breath over the last 2 days. Worsens with exertion, cough, and congestion. No leg pain or swelling. Some discomfort with cough found in the chest. HOME MEDICINES: 1. Klonopin 1 mg t.i.d. 2. . 3. Crestor 40 mg daily. 4. . 5. Motrin 400 q.8h. 6. Multivitamin daily. 7. Aspirin 81 mg daily. 8. Omeprazole 40 mg daily. 9. Zoloft 25 daily. 10.Norvasc 10 mg daily. 11.Metformin 500 daily. ALLERGIES: [place], Darvocet, . REVIEW OF SYSTEMS: A 14-point review of systems negative except as mentioned in HPI. SURGERIES: Appendectomy, bowel resection, hernia repair, tubal ligation, colonoscopy, D and C, heart catheterization with stents, incisional hernia repair. Anxiety, panic disorder, former smoker. PAST FAMILY HISTORY: Mother with heart failure. Father with cancer. PHYSICAL EXAMINATION: HEENT: Normocephalic, atraumatic. CARDIOVASCULAR: S1, S2. LUNGS: Clear. GI: Soft, nontender. HEMATOLOGY: Negative Homans. PSYCH: Fair mood and affect. VASCULAR: Normal dorsalis pedis, posterior tibial. SKIN: Warm, dry, and intact. VITAL SIGNS: Temperature 98.8, pulse 69 to 70, respiratory rate 20 to 22, blood pressure is 170s over 60s, O2 is 96%. EKG sinus rhythm. Labs were reviewed. Chest x-ray, interstitial changes. ASSESSMENT: 1. Chronic obstructive pulmonary disease. 2. Tracheobronchitis. 3. Possible pneumonia. 4. Acute hypoxemic respiratory failure. 5. Possible viral syndrome. Continue current treatments, steroids, antibiotics. Prognosis guarded. MMODL / IJN: [id number] /
[2022-06-29] MEDS: INSULIN ASPART (NovoLOG) 100 UNIT/ML VIAL SQ SCH ×4 (06:43→21:53)
[2022-06-29] MEDS: IPRATROPIUM-ALBUTEROL 3 ML NEB INHALATION SCH ×4 (08:16→20:34)
[2022-06-29] MEDS: ASPIRIN 81 MG PO SCH (08:35)
[2022-06-29] MEDS: PANTOPRAZOLE 40 MG TABLET PO SCH (08:35)
[2022-06-29] MEDS: HYDROcodone/APAP 7.5-325MG 1 EACH TAB PO PRN (08:35)
[2022-06-29] MEDS: ATORVASTATIN 80 MG TAB PO SCH (08:36)
[2022-06-29] MEDS: CLOPIDOGREL 75 MG TAB PO SCH (08:36)
[2022-06-29] MEDS: clonazePAM 1 MG TAB PO SCH ×3 (08:36→21:54)
[2022-06-29] MEDS: atenoloL 50 MG TAB PO SCH (08:36)
[2022-06-29] MEDS: amLODIPine 5 MG TAB PO SCH (08:36)
--- NOTE | 2022-06-29 10:40 | CDI ---
Documentation Clarification Form Date: 06/29/2022 10:18:12 AM From: Sharla Hall RN CCDS Admit Date: 06/28/2022 08:02:00 PM Patient Name: Gianna Dale Visit Number: [id number] Discharge Date: ATTENTION: The Clinical Documentation Specialists (CDI) and [facility] Coding Staff appreciate your assistance in clarifying documentation. Please respond to the clarification below the line at the bottom and electronically sign. The CDI & [facility] Coding staff will review the response and follow-up if needed. Please note: Queries are made part of the Legal Health Record. If you have any questions, please contact the author of this message via ITS. Dr. Gregorio Garber Acute hypoxemic respiratory failure is documented 06/28, H&P which may lack sufficient clinical evidence/support in the medical record. Additional clarification is requested. History/Risk Factors: 66-year-old female presents to the ED with cough, congestion and worsening shortness of breath over the last two days. Medical History: COPD and former smoker. 06/28, H&P. Clinical Indicators: 06/28, H&P: Lung exam; Clear. 06/28 17:27, VS: B/P 176/65; HR 69; Temp 98.8 F Oral; RR 22; SpO2 96% room air 06.28 19:34, VS: B/P 150/58; HR 76; Temp 98.6 F Oral; RR 16; SpO2 95% room air 06/29 02:47, VS B/P 126/65; HR 67; Temp 97.8 F Oral: RR 18; SpO2 94% room air 06/28, CXR: Interstitial lung disease throughout the lungs. Treatment: Room air Please clarify if Acute hypoxemic respiratory failure is a valid diagnosis? [ ] Yes, Acute hypoxemic respiratory failure is present as evidence by (additional clinical support): [ ] No, Acute hypoxemic respiratory failure is ruled out [ ] Other (please specify diagnosis) [ ] Unable to determine (Template Last Revised: September 2020) MTDD
--- NOTE | 2022-06-29 11:24 | P.CNPUL ---
History of Present Illness Consult date: 06/29/22 Requesting physician: Gregorio Garber Reason for consult: dyspnea, cough, COPD Chief complaint: headache, cough, mild shortness of breath for approximately one week History of present illness: I'm seeing this patient today for the first time. She does not follow up with any player development executive outpatient, and seen Dr. Cantor on an inpatient basis prior. Patient is sitting up in without any obvious distress and on room air. Her chief complaint includes primarily headache, nonproductive cough, and some mild shortness of breath with activity for approximately 1 week. She denies fever, chest pain, hemoptysis, orthopnea, lower extremity swelling. Her pertinent medical history is significant for COPD of unknown severity, GERD, diabetes mellitus type 2, CAD with prior heart catheterization and stents, peripheral vascular disease with prior iliac stenting. She admits to being an ex-smoker, quitting approximately 15 years ago, and being 75-41-medc-year smokershe manages her COPD outpatient with when necessary albuterol nebulization. Her COVID, RSV, influenza screenings were all negative. D-dimer negative, BNP 802, and troponins negative so far. CBC shows mild leukocytosis WBC 11, hemoglobin 15.2, hematocrit 46, platelets 190,000. BMP is within defined limits sodium 135, potassium 3.9, chloride 101, serum CO2 25, when necessary 13, creatinine 0.87, glucose 129. Chest x-ray from yesterday 06/28/2022 shows interstitial lung disease throughout. At this point I doubt bacterial pneumonia, however, she is maintained on azithromycin for empiric coverage. She is also receiving DuoNeb i nhalations and IV Solu-Medrol. Review of Systems REVIEW OF SYSTEMS: CONSTITUTIONAL: Denies any recent significant weight loss or weight gain. EYES: Denies change in vision. EARS, NOSE, MOUTH, THROAT: Denies headaches, denies sore throat. CARDIOVASCULAR: Denies chest pain, palpitations or syncopal episodes. RESPIRATORY: Denies congestion or hemoptysis. Admits nonproductive cough and mild exertional shortness of breath for approximately one week. GASTROINTESTINAL: Denies change in appetite, denies abdominal pain GENITOURINARY: Denies hematuria, denies infections. MUSKULOSKELETAL: Denies pain, denies swelling. INTEGUMENTARY: Denies rash, denies eczema. NEUROLOGICAL: Denies recent memory loss, no recent seizure activity. Admits headache. PSYCHIATRIC: Denies anxiety, denies depression. HEMATOLOGIC/LYMPHATIC: Denies anemia, denies enlarged lymph nodes. Past Medical History Past Medical History: Coronary Artery Disease (CAD), COPD, Deep Vein Thrombosis (DVT), Fibromyalgia, GERD/Reflux, Hyperlipidemia, Hypertension, Osteoarthritis (OA), Skin Disorder Additional Past Medical History / Comment(s): DIVERTICULITIS, HX KIDNEY STONE- still has it but it's never moved , Pneumonia, ROSACEA, DVT RLE 2007,gerson cataracts, BILAT ILIAC ARTERIES BLOCKED PER PT History of Any Multi-Drug Resistant Organisms: None Reported Past Surgical History: Appendectomy, Bowel Resection, Heart Catheterization With Stent, Hernia Repair, Tubal Ligation Additional Past Surgical History / Comment(s): COLONOSCOPY, PARTIAL LT LOBECTOMY-(pt stated they thought i might of had tb but it was just scar tissue), D & C, 07-17-14 BOWEL RESECTION, [place] [facility] [place] , 12-18-17 lap robotic assisted repair of inc hernia Past Anesthesia/Blood Transfusion Reactions: No Reported Reaction Date of Last St[place] Pl[place]:: [place] [facility] [place] [place] Past Psychological History: Anxiety, Panic Disorder Additional Psychological History / Comment(s): PT IS INDEPENDANT-drives,LIVES WITH SPOUSE and 2 pet cats. has 3 adult children and 10 grandchildren. 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 Smoking Status: Former smoker Past Alcohol Use History: Occasional Additional Past Alcohol Use History / Comment(s): smoked since age 13 1ppd; QUIT 2008 Past Drug Use History: None Reported - Past Family History Mother Family Medical History: Congestive Heart Failure (CHF) Father Family Medical History: Cancer Additional Family Medical History / Comment(s): TYPE OF CANCER NOT KNOWN Medications and Allergies Home Medications Medication Instructions Recorded Confirmed Type clonazePAM [Clonazepam] 1 mg PO TID 02/20/14 06/28/22 History HYDROcodone/APAP 7.5-325MG [[place] 1 tab PO DAILY PRN 09/14/16 06/28/22 History 7.5-325] Rosuvastatin Calcium [Crestor] 40 mg PO DAILY 01/10/17 06/28/22 History Aspirin EC [Ecotrin Low Dose] 81 mg PO DAILY 01/27/20 06/28/22 History Clopidogrel Bisulfate [Plavix] 75 mg PO DAILY #90 tab 04/15/20 06/28/22 Rx Omeprazole 40 mg PO DAILY 09/22/21 06/28/22 History metFORMIN HCL 500 mg PO DAILY 09/22/21 06/28/22 History Multivit-Min/Iron/Folic/Lutein 1 tab PO DAILY 06/28/22 06/28/22 History [Centrum Silver Women Tablet] Sertraline [Zoloft] 100 mg PO DAILY 06/28/22 06/28/22 History amLODIPine [Norvasc] 5 mg PO DAILY 06/28/22 06/28/22 History atenoloL [Tenormin] 50 mg PO DAILY 06/28/22 06/28/22 History Allergies Allergy/AdvReac Type Severity Reaction Status Date / Time hydrocodone bitartrate AdvReac Nausea & Verified 06/28/22 20:25 [From Vicodin] Vomiting propoxyphene napsylate AdvReac Nausea & Verified 06/28/22 20:25 [From Darvocet-N 100] Vomiting Physical Exam Vitals: Vital Signs Temp Pulse Pulse Resp BP BP Pulse Ox 06/29/22 08:29 80 06/29/22 08:16 80 06/29/22 07:00 97.8 F 93 18 146/76 93 L 06/29/22 02:47 97.7 F 67 18 126/65 94 L 06/29/22 00:54 22 06/28/22 22:11 97.8 F 76 20 144/75 98 06/28/22 21:45 98.4 F 69 16 148/79 94 L 06/28/22 19:35 70 06/28/22 19:34 98.6 F 76 16 150/58 95 06/28/22 19:25 71 06/28/22 17:27 98.8 F 69 22 176/65 96 Intake and Output 06/28/22 06/29/22 06/29/22 22:59 06:59 14:59 Intake Total 500 500 Balance 500 500 Intake: Oral 500 500 Other: Voiding Method Toilet Weight 63.503 kg GENERAL EXAM: Alert, active, comfortable in no apparent distress. On room air. HEAD: Normocephalic. EYES: Normal reaction of pupils, equal size. NOSE: Clear with pink turbinates. THROAT: No erythema or exudates. NECK: No masses, no JVD. CHEST: No chest wall deformity. LUNGS: Equal air entry with no crackles, wheeze, rhonchi or dullness. There is a persistent nonproductive hacking cough. CVS: S1 and S2 normal with no audible murmur, regular rhythm. ABDOMEN: No hepatosplenomegaly, normal bowel sounds, no guarding or rigidity. SPINE: No scoliosis or deformity SKIN: No rashes CENTRAL NERVOUS SYSTEM: No focal deficits, tone is normal in all 4 extremities. EXTREMITIES: There is no peripheral edema. No clubbing, no cyanosis. Peripheral pulses are intact. Results - Laboratory Findings CBC and BMP: 06/28/22 18:00 06/28/22 18:32 PT/INR, D-dimer PT 11.0 sec (9.0-12.0) 06/28/22 18:00 INR 1.0 (<1.2) 06/28/22 18:00 D-Dimer 0.34 mg/L FEU (<0.60) 06/29/22 00:16 Abnormal lab findings: Abnormal Labs 06/28/22 06/28/22 06/29/22 18:00 18:32 06:22 WBC 11.0 H Neutrophils # 9.6 H Lymphocytes # 0.3 L Sodium 135 L Glucose 129 H POC Glucose (mg/dL) 299 H Hemoglobin A1c 06/29/22 06:34 WBC Neutrophils # Lymphocytes # Sodium Glucose POC Glucose (mg/dL) Hemoglobin A1c 7.3 H - Diagnostic Findings Chest x-ray: image reviewed Assessment and Plan Assessment: Acute COPD exacerbation on room air. Managed with DuoNeb inhalations and IV Solu-Medrol. Underlying pulmonary fibrosis demonstrated on chest x-ray. Will investigate with noncontrast CAT scan of chest. Former smoker quit in 2008. Reports a 30-40 pack-year history GERD managed outpatient on omeprazole. Diabetes mellitus type 2 [id number]. Managed outpatient with metformin. Hemoglobin A1c today 7.3. CAD with remote history of stenting 2015. Most recent echocardiogram performed on 01/28/2020 revealed preserved ejection fraction 55-60% with some moderate left ventricular hypertrophy. BNP 804, troponin negative so far. Peripheral vascular disease remote history of iliac stenting. Plan: On room air, may use supplemental oxygen for nasal cannula to maintain SpO2 greater than 92%. Negative for influenza, RSV, coronavirus. Continue DuoNeb inhalations and IV Solu-Medrol for now. Continue empiric antibiotic coverage with azithromycin. will order computed tomography scan without contrast to evaluate underlying pulmonary fibrosis. Continue IV Solu-Medrol We'll add Gunner Rueda continue Protonix . I have personally seen and examined the patient, performed the documentation and the assessment and plan as written. Number of minutes spent on the visit: [ 20]. Time with Patient: Less than 30
[2022-06-29 12:51] LABS: Glucose,Whole Blood 314 mg/dL (70-110)
--- NOTE | 2022-06-29 13:04 | CT ---
EXAMINATION TYPE: CT chest wo con DATE OF EXAM: 06/29/2022 COMPARISON: 05/02/2019 HISTORY: cough, SOB CT DLP: 1239.5 mGycm High-resolution noncontrast CT of the chest was performed with the patient in the prone and supine po sitions. Lung and mediastinal window settings are submitted. The lungs appear to be well-aerated mild basilar subpleural fibrosis. There is some mild to moderate peripheral emphysematous changes within the upper lobes. There is no evidence for bronchiectasis, ilan undglass infiltrate, nodule or mass. No pleural effusion is identified. I do not see evidence for h ilar or mediastinal mass or adenopathy. IMPRESSION: 1. Emphysematous changes. 2. Mild lower lobe subpleural fibrosis.
[2022-06-29] MEDS: BENZONATATE 100 MG CAP PO PRN (16:48)
[2022-06-29 17:44] LABS: Glucose,Whole Blood 338 mg/dL (70-110)
[2022-06-29] MEDS: methocarbamoL 750 MG TAB PO SCH ×2 (18:03→21:53)
[2022-06-29 20:21] LABS: Glucose,Whole Blood 398 mg/dL (70-110)
[2022-06-29] MEDS: AZITHROMYCIN 500 MG TAB PO SCH (21:53)
[2022-06-29] MEDS: SERTRALINE 50 MG TAB PO SCH (21:54)
--- NOTE | 2022-06-29 23:15 | CT ---
EXAMINATION TYPE: CT thor lumbar spine wo con CT DLP: 1899.20 mGycm, Automated exposure control for dose reduction was used. DATE OF EXAM: 06/29/2022 5:27 PM COMPARISON: CT chest 06/29/2022. CLINICAL INDICATION:Female, 66 years old with history of Lower and Mid Back Pain; TECHNIQUE: Axial images of the thoracic and lumbar spine were obtained without contrast. Coronal and sagittal reformats were performed. Contrast used: none. FINDINGS: Thoracic: Multilevel disc degeneration changes with osteophyte formation. T6 superior endplate compre ssion deformity stable from 2019. No evidence retropulsion. There is straightening of the thoracolumb ar junction. No evidence of significant spinal canal or neural foraminal stenosis in the thoracic spi ne. Lumbar: Alignment: There are 5 lumbar type vertebral bodies within normal alignment. Bone: No evidence of fracture is identified. Scattered osteophyte formation and degeneration changes worse at L2-L3. Discs: T12-L1: No spinal canal or neural foraminal stenosis is identified. L1-L2: No spinal canal or neural foraminal stenosis is identified. L2-L3: Disc space narrowing with disc bulging without significant spinal canal neural foraminal steno sis. L3-L4: Disc bulge and facet joint arthropathy without evidence for significant spinal canal or neural foraminal stenosis. L4-L5: Disc bulge and facet joint arthropathy without evidence for significant spinal canal or neura l foraminal stenosis. L5-S1: No spinal canal or neural foraminal stenosis is identified. Other: Paraseptal emphysema changes are seen throughout the lungs. Scattered increased interstitial lung markings are present throughout the visualized lungs. There is atheroscl erosis of the arterial vasculature. Partially calcified left pulmonary hilum lymph nodes. Calcificati ons along the pleura noted. Coronary artery atherosclerosis. Heart is mildly enlarged for size. Renal sinus calcifications favored to be atherosclerosis versus less likely nonobstructing renal calculi. Saccular dilation of the distal aorta measuring up to 19 mm. IMPRESSION: 1. No evidence of fracture of the thoracic or lumbar spine. 2. No spinal canal or neural foraminal stenosis is identified. 3. Multilevel disc degeneration changes throughout the spine.
[2022-06-30 05:56] LABS: Glucose,Whole Blood 310 mg/dL (70-110)
[2022-06-30] MEDS: INSULIN ASPART (NovoLOG) 100 UNIT/ML VIAL SQ SCH ×2 (06:00→13:00)
[2022-06-30] MEDS: methylPREDNISolone SOD SUCCI 125 MG/2 ML VIAL IV SCH ×2 (06:00→13:00)
[2022-06-30 07:19] VITALS: RESP 16
[2022-06-30] MEDS: IPRATROPIUM-ALBUTEROL 3 ML NEB INHALATION SCH ×3 (07:24→15:25)
[2022-06-30] MEDS: methocarbamoL 750 MG TAB PO SCH ×2 (09:11→13:46)
[2022-06-30] MEDS: atenoloL 50 MG TAB PO SCH (09:11)
[2022-06-30] MEDS: clonazePAM 1 MG TAB PO SCH (09:11)
[2022-06-30] MEDS: amLODIPine 5 MG TAB PO SCH (09:11)
[2022-06-30] MEDS: ATORVASTATIN 80 MG TAB PO SCH (09:11)
[2022-06-30] MEDS: ASPIRIN 81 MG PO SCH (09:11)
[2022-06-30] MEDS: PANTOPRAZOLE 40 MG TABLET PO SCH (09:11)
[2022-06-30] MEDS: CLOPIDOGREL 75 MG TAB PO SCH (09:11)
[2022-06-30] MEDS: BENZONATATE 100 MG CAP PO PRN (10:21)
--- NOTE | 2022-06-30 11:16 | P.PN ---
Subjective Progress Note Date: 06/30/22 Principal diagnosis: COPD exacerbation, dyspnea, hypoxemia I'm seeing this patient today for the first time. She does not follow up with any parachute line tier outpatient, and seen Dr. Cantor on an inpatient basis prior. Patient is sitting up in without any obvious distress and on room air. Her chief complaint includes primarily headache, nonproductive cough, and some mild shortness of breath with activity for approximately 1 week. She denies fever, chest pain, hemoptysis, orthopnea, lower extremity swelling. Her pertinent medical history is significant for COPD of unknown severity, GERD, diabetes mellitus type 2, CAD with prior heart catheterization and stents, peripheral vascular disease with prior iliac stenting. She admits to being an ex-smoker, quitting approximately 15 years ago, and being 20-25-tksz-year smokershe manages her COPD outpatient with when necessary albuterol nebulization. Her COVID, RSV, influenza screenings were all negative. D-dimer negative, BNP 802, and troponins negative so far. CBC shows mild leukocytosis WBC 11, hemoglobin 15.2, hematocrit 46, platelets 190,000. BMP is within defined limits sodium 135, potassium 3.9, chloride 101, serum CO2 25, when necessary 13, creatinine 0.87, glucose 129. Chest x-ray from yesterday 06/28/2022 shows interstitial lung disease throughout. At this point I doubt bacterial pneumonia, however, she is maintained on azithromycin for empiric coverage. She is also receiving DuoNeb inhalations and IV Solu-Medrol. I am reevaluating this patient today on 06/30/2022. She is sitting up in bed on room air in no acute distress. Patient denies shortness of breath, chest pain, fever. No new labs today. Her chest CT without contrast from yesterday showed some emphysematous changes throughout and some mild lower lobe subpleural fibrosis. She is maintained on DuoNeb inhalation IV Solu-Medrol. She is receiving Zithromax for empiric coverage. Her pulmonary status is stable and could be managed from an outpatient basis. She also had a CT of the lumbar spine without contrast yesterday which shown some osteoarthritic changes. Objective - Vital Signs Vital signs: Vital Signs Temp 97.5 F L 06/30/22 07:15 Pulse 74 06/30/22 11:00 Resp 16 06/30/22 07:15 BP 159/68 06/30/22 07:15 Pulse Ox 95 06/30/22 07:24 FiO2 21 06/29/22 20:34 Intake & Output 06/29/22 06/30/22 06/30/22 18:59 06:59 18:59 Intake Total 240 Balance 240 Intake: Oral 240 Other: Voiding Method Toilet # Voids 4 2 # Bowel Movements 0 0 - Exam GENERAL EXAM: Alert, active, comfortable in no apparent distress. On room air. HEAD: Normocephalic. EYES: Normal reaction of pupils, equal size. NOSE: Clear with pink turbinates. THROAT: No erythema or exudates. NECK: No masses, no JVD. CHEST: No chest wall deformity. LUNGS: Equal air entry with no crackles, wheeze, rhonchi or dullness. There is a persistent nonproductive hacking cough is improved. CVS: S1 and S2 normal with no audible murmur, regular rhythm. ABDOMEN: No hepatosplenomegaly, normal bowel sounds, no guarding or rigidity. SPINE: No scoliosis or deformity SKIN: No rashes CENTRAL NERVOUS SYSTEM: No focal deficits, tone is normal in all 4 extremities. EXTREMITIES: There is no peripheral edema. No clubbing, no cyanosis. Peripheral pulses are intact. - Labs CBC & Chem 7: 06/28/22 18:00 06/28/22 18:32 Labs: Abnormal Lab Results - Last 24 Hours (Table) 06/29/22 06/29/22 06/29/22 Range/Units 12:50 17:42 20:19 POC Glucose (mg/dL) 314 H 338 H 398 H (70-110) mg/dL 06/30/22 Range/Units 05:54 POC Glucose (mg/dL) 310 H (70-110) mg/dL Assessment and Plan Assessment: Acute COPD exacerbation on room air. Managed with DuoNeb inhalations and IV Solu-Medrol. Underlying pulmonary fibrosis demonstrated on noncontrast CT of the chest. Former smoker quit in 2008. Reports a 30-40 pack-year history GERD managed outpatient on omeprazole. Diabetes mellitus type 2 [id number]. Managed outpatient with metfo in. Hemoglobin A1c 7.3. CAD with remote history of stenting 2015. Most recent echocardiogram performed on 01/28/2020 revealed preserved ejection fraction 55-60% with some moderate left ventricular hypertrophy. BNP 804, troponin negative so far. Peripheral vascular disease remote history of iliac stenting. Plan: On room air, may use supplemental oxygen for nasal cannula to maintain SpO2 greater than 92%. Negative for influenza, RSV, coronavirus. Continue DuoNeb inhalations and IV Solu-Medrol for now. Continue empiric antibiotic coverage with azithromycin. will order computed tomography scan without contrast to evaluate underlying pulmonary fibrosis. Continue IV Solu-Medrol We'll continue Tessalon Perles continue Protonix Patient's pulmonary status has stabilized, and is cleared for discharge from our standpoint. She should follow up in the office to schedule pulmonary function test. I have personally seen and examined the patient, performed the documentation and the assessment and plan as written. Number of minutes spent on the visit: [10]. Time with Patient: Less than 30
--- NOTE | 2022-06-30 12:13 | CA ---
Transthoracic Echo Report Name: Gianna Dale Age: 66 Gender: F : 1955 Exam Date: 06/30/2022 10:01 Exam Location: [facility] Ht (in): 58 Wt (lb): 140 Ordering Physician: Gregorio Garber MD Attending/Referring Phys: Group Account Director Andie Coffey RDCS Procedure CPT: Indications: SHORTNESS OF BREATH Cardiac Hx: Technical Quality: Fair Contrast 1: Total Dose (mL): Contrast 2: Total Dose (mL): MEASUREMENTS (Male / Female) Normal Values 2D ECHO LV Diastolic Diameter PLAX 4.9 cm 4.2 - 5.9 / 3.9 - 5.3 cm LV Systolic Diameter PLAX 3.2 cm IVS Diastolic Thickness 1.0 cm 0.6 - 1.0 / 0.6 - 0.9 cm LVPW Diastolic Thickness 1.2 cm 0.6 - 1.0 / 0.6 - 0.9 cm LV Relative Wall Thickness 0.4 RV Internal Dim ED PLAX 2.8 cm LA Volume 66.9 cm??? 18 - 58 / 22 - 52 cm??? M-MODE Aortic Root Diameter MM 2.7 cm LA Systolic Diameter MM 4.2 cm LA Ao Ratio MM 1.6 AV Cusp Separation MM 1.8 cm DOPPLER AV Peak Velocity 124.7 cm/s AV Peak Gradient 6.2 mmHg AV Mean Velocity 84.5 cm/s AV Mean Gradient 3.3 mmHg AV Velocity Time Integral 25.4 cm LVOT Peak Velocity 111.2 cm/s LVOT Peak Gradient 4.9 mmHg MV Area PHT 3.7 cm??? Mitral E Point Velocity 110.2 cm/s Mitral A Point Velocity 80.6 cm/s Mitral E to A Ratio 1.4 MV Deceleration Time 202.6 ms MV E' Velocity 6.3 cm/s Mitral E to MV E' Ratio 17.6 TR Peak Velocity 206.8 cm/s TR Peak Gradient 17.1 mmHg FINDINGS Left Ventricle Mildly increased left ventricular wall thickness. Normal left ventricular systolic function with no obvious regional wall motion abnormalities. Left ventricular ejection fraction is estimated at 55 %. Right Ventricle Normal right ventricular size and function. Right ventricular systolic pressure within normal limits. Right Atrium Right atrium not well visualized. Left Atrium Mild left atrial dilatation. Mitral Valve Structurally normal mitral valve. No mitral stenosis. Mild mitral regurgitation. Aortic Valve No aortic valve stenosis or regurgitation. Tricuspid Valve Structurally normal tricuspid valve. Mild tricuspid regurgitation. Pulmonic Valve Trace pulmonic regurgitation. Pericardium No pericardial effusion. Aorta Normal size aortic root and proximal ascending aorta. CONCLUSIONS Technically difficult study for interpretation Normal left ventricular dimension and systolic function Previewed by: Dr. Aayush Kim MD (Electronically Signed) Final Date: 30 June 2022 12:12
[2022-06-30 12:34] LABS: Glucose,Whole Blood 328 mg/dL (70-110)
[2022-06-30 16:32] VITALS: BP 153/73; PULSE 69; TEMP 97.8
[2022-06-30] MEDS ORDERED: CEFDINIR 300 MG CAP PO SCH (21:00)
--- NOTE | 2022-06-30 22:02 | PN ---
PROGRESS NOTE OBJECTIVE: LUNGS: Clear. CARDIOVASCULAR: S1, S2. MUSCULOSKELETAL: She has some swelling over the right thoracic paraspinal muscles on the right side, about 6 inches long, suspect thoracic spasm. Thoracic degenerative disk disease, COPD exacerbation, tracheobronchitis. Continue with antibiotics. Muscle relaxers for the back. Continue PT, OT, possible home once cleared by pulmonology. MMODL / IJN: [id number] /
[2022-07-01] MEDS ORDERED: dexAMETHasone 2 MG TAB PO SCH (09:00)
--- NOTE | 2022-07-07 23:22 | PN ---
PROGRESS NOTE Hypoxia and respiratory failure. MMODL / IJN: [id number] /
== END 2022-06-30 16:39 | disposition home or self-care (01) | DRG 190 ==
LOC: EC 17:26 → 6NMEDSUR 20:02
PROVIDERS: ADMIT Family Medicine; ATTEND Family Medicine
DX: J44.1 Chronic obstructive pulmonary disease with (acute) exacerbation (principal); J96.01 Acute respiratory failure with hypoxia; E11.51 Type 2 diabetes mellitus with diabetic peripheral angiopathy without gangrene; I11.9 Hypertensive heart disease without heart failure; J84.10 Pulmonary fibrosis, unspecified; I08.1 Rheumatic disorders of both mitral and tricuspid valves; D72.829 Elevated white blood cell count, unspecified; E78.5 Hyperlipidemia, unspecified; Z95.820 Peripheral vascular angioplasty status with implants and grafts; M79.7 Fibromyalgia; K21.9 Gastro-esophageal reflux disease without esophagitis; M51.34 Other intervertebral disc degeneration, thoracic region; I25.10 Atherosclerotic heart disease of native coronary artery without angina pectoris; M62.830 Muscle spasm of back; M47.816 Spondylosis without myelopathy or radiculopathy, lumbar region; Z20.822 Contact with and (suspected) exposure to COVID-19; Z90.2 Acquired absence of lung [part of]; Z87.891 Personal history of nicotine dependence; Z79.899 Other long term (current) drug therapy; Z79.82 Long term (current) use of aspirin; Z79.84 Long term (current) use of oral hypoglycemic drugs; Z79.02 Long term (current) use of antithrombotics/antiplatelets; Z88.5 Allergy status to narcotic agent; Z87.442 Personal history of urinary calculi; Z86.718 Personal history of other venous thrombosis and embolism; Z87.19 Personal history of other diseases of the digestive system
CPT/HCPCS: 36415; 71046; 71250; 72128; 72131; 80053; 83036; 83605; 83880; 84484; 85025; 85379; 85610; 85730; 87636; 93005; 93306; 94640; 94760; 96374; 99285

== ENCOUNTER 2022-10-01 16:24 | Observation (INO) | payer MEDICARE ==
[2022-10-01] MEDS ORDERED: NITROGLYCERIN OINT 1 INCH/GM PACKET TOPICAL STA (16:53)
[2022-10-01] MEDS ORDERED: ASPIRIN 81 MG PO STA (16:53)
--- NOTE | 2022-10-01 16:55 | ED ---
General Adult HPI - General Chief complaint: Chest Pain Stated complaint: Chest Pain Time Seen by Provider: 10/01/22 16:37 Source: patient, RN notes reviewed Mode of arrival: wheelchair Limitations: no limitations - History of Present Illness Initial comments: Patient is a pleasant 66-year-old female presenting to the emergency department with concerns with chest discomfort. Discomfort has been waxing and waning for a couple days. Discomfort is fairly mild at this time. Patient does have some associated dyspnea however this is chronic and only a little bit worse than normal. No diaphoresis or nausea. - Related Data Home Medications Medication Instructions Recorded Confirmed clonazePAM [Clonazepam] 1 mg PO TID 02/20/14 10/01/22 HYDROcodone/APAP 7.5-325MG [[place] 1 tab PO DAILY PRN 09/14/16 10/01/22 7.5-325] Rosuvastatin Calcium [Crestor] 40 mg PO DAILY 01/10/17 10/01/22 Aspirin EC [Ecotrin Low Dose] 81 mg PO DAILY 01/27/20 10/01/22 Omeprazole 40 mg PO DAILY 09/22/21 10/01/22 metFORMIN HCL 500 mg PO DAILY 09/22/21 10/01/22 Multivit-Min/Iron/Folic/Lutein 1 tab PO DAILY 06/28/22 10/01/22 [Centrum Silver Women Tablet] Sertraline [Zoloft] 100 mg PO DAILY 06/28/22 10/01/22 amLODIPine [Norvasc] 5 mg PO DAILY 06/28/22 10/01/22 atenoloL [Tenormin] 50 mg PO BID 06/28/22 10/01/22 Albuterol Sulfate [Albuterol 2 puff INHALATION RT-Q6H PRN 10/01/22 10/01/22 Sulfate Hfa] Previous Rx's Medication Instructions Recorded Clopidogrel Bisulfate [Plavix] 75 mg PO DAILY #90 tab 04/15/20 Benzonatate [Tessalon Perles] 200 mg PO TID PRN 7 Days #21 cap 06/30/22 Allergies Allergy/AdvReac Type Severity Reaction Status Date / Time hydrocodone bitartrate AdvReac Nausea & Verified 10/01/22 17:34 [From Vicodin] Vomiting propoxyphene napsylate AdvReac Nausea & Verified 10/01/22 17:34 [From Darvocet-N 100] Vomiting Review of Systems ROS Statement: Those systems with pertinent positive or pertinent negative responses have been documented in the HPI. ROS Other: All systems not noted in ROS Statement are negative. Constitutional: Denies: fever Eyes: Denies: eye pain ENT: Denies: ear pain Respiratory: Reports: as per HPI, dyspnea Cardiovascular: Reports: as per HPI, chest pain Endocrine: Denies: fatigue Gastrointestinal: Denies: abdominal pain Genitourinary: Denies: dysuria Musculoskeletal: Denies: back pain Skin: Denies: rash Neurological: Denies: weakness Past Medical History Past Medical History: Coronary Artery Disease (CAD), COPD, Deep Vein Thrombosis (DVT), Fibromyalgia, GERD/Reflux, Hyperlipidemia, Hypertension, Osteoarthritis (OA), Skin Disorder Additional Past Medical History / Comment(s): DIVERTICULITIS, HX KIDNEY STONE- still has it but it's never moved , Pneumonia, ROSACEA, DVT RLE 2007,gerson cataracts, BILAT ILIAC ARTERIES BLOCKED PER PT History of Any Multi-Drug Resistant Organisms: None Reported Past Surgical History: Appendectomy, Bowel Resection, Heart Catheterization With Stent, Hernia Repair, Tubal Ligation Additional Past Surgical History / Comment(s): COLONOSCOPY, PARTIAL LT LOBE CTOMY-(pt stated they thought i might of had tb but it was just scar tissue), D & C, 07-17-14 BOWEL RESECTION, HEART CATH W 2 STENTS AT [facility] [place] 11-15-15 , 12-18-17 lap robotic assisted repair of inc hernia Past Anesthesia/Blood Transfusion Reactions: No Reported Reaction Date of Last Stent Placement:: 11-15-15 AT [facility] [place] Past Psychological History: Anxiety, Panic Disorder Smoking Status: Former smoker Past Alcohol Use History: Occasional Past Drug Use History: None Reported - Past Family History Mother Family Medical History: Congestive Heart Failure (CHF) Father Family Medical History: Cancer Additional Family Medical History / Comment(s): TYPE OF CANCER NOT KNOWN General Exam Limitations: no limitations General appearance: alert, in no apparent distress Head exam: Present: normocephalic Eye exam: Present: normal appearance Neck exam: Present: normal inspection Respiratory exam: Present: normal lung sounds bilaterally. Absent: chest wall tenderness Cardiovascular Exam: Present: regular rate, normal rhythm Expanded Peripheral pulses: 2+: Radial (R), Radial (L), Posterior Tibialis (R), Posterior Tibialis (L), Dorsalis Pedis (R), Dorsalis Pedis (L) GI/Abdominal exam: Present: soft. Absent: tenderness Extremities exam: Present: normal inspection. Absent: pedal edema, calf tenderness Neurological exam: Present: alert Psychiatric exam: Present: normal affect, normal mood Skin exam: Present: normal color Course Vital Signs 10/01/22 10/01/22 10/01/22 16:31 16:40 17:30 Temperature 98.0 F Pulse Rate 59 L 52 L Pulse Rate [ 52 L Animal Cruelty Investigation Supervisor ] Respiratory 22 20 Rate Blood Pressure 172/84 O2 Sat by Pulse 97 97 Oximetry 10/01/22 18:10 Temperature 97.8 F Pulse Rate 51 L Pulse Rate [ Animal Cruelty Investigation Supervisor ] Respiratory 18 Rate Blood Pressure 161/91 O2 Sat by Pulse 98 Oximetry EKG Findings - EKG Results: EKG: interpreted by CODEY, sinus rhythm, normal axis, normal QRS, normal ST/T EKG shows: bradycardia Medical Decision Making - Medical Decision Making Was pt. sent in by a medical professional or institution (, PA, SCHOLASTIC APTITUDE TEST GRADER, urgent care, hospital, or jail...) When possible be specific @ -No Did you speak to anyone other than the patient for history (EMS, parent, family, police, friend...)? What history was obtained from this source @ -No Did you review nursing and triage notes (agree or disagree)? Why? @ -I reviewed and agree with nursing and triage notes Were old charts reviewed (outside hosp., previous admission, EMS record, old EKG, old radiological studies, urgent care reports/EKG's, jail records)? Report findings @ -No old charts were reviewed Differential Diagnosis (chest pain, altered mental status, abdominal pain women, abdominal pain men, vaginal bleeding, weakness, fever, dyspnea, syncope, headache, dizziness, GI bleed, back pain, seizure, CVA, palpatations, mental health)? @ -Differential Chest Pain: Stable Angina, Unstable Angina, STEMI, NSTEMI Aortic Dissection, Pneumothorax, Musculoskeletal, Esophageal Spasm GERD, Cholecystitis, Pancreatitis, Zoster, this is not meant to be an all-inclusive list. EKG interpreted by me (3pts min.). @ -As above X-rays interpreted by me (1pt min.). @ -Chest x-ray shows some fibrotic changes CT interpreted by me (1pt min.). @ -None done U/S interpreted by me (1pt. min.). @ -None done What testing was considered but not performed or refused? (CT, X-rays, U/S, labs)? Why? @ -None What meds were considered but not given or refused? Why? @ -None Did you discuss the management of the patient with other professionals (professionals i.e. DrSandy, PA, SCHOLASTIC APTITUDE TEST GRADER, lab, RT, psych nurse, social services counselor, car repairer pullman, teacher, marketing officer, block and case maker)? Give summary @ -Case was discussed with Dr. Garber, who will admit his patient. Was smoking cessation discussed for >3mins.? @ -No Was critical care preformed (if so, how long)? @ -No Were there social determinants of health that impacted care today? How? (Homelessness, low income, unemployed, alcoholism, drug addiction, transportat ion, low edu. Level, literacy, decrease access to med. care, mcc, rehab)? @ -No Was there de-escalation of care discussed even if they declined (Discuss DNR or withdrawal of care, Hospice)? DNR status @ -No What co-morbidities impacted this encounter? (DM, HTN, Smoking, COPD, CAD, Cancer, CVA, ARF, Chemo, Hep., AIDS, mental health diagnosis, sleep apnea, morbid obesity)? @ -None Was patient admitted / discharged? Hospital course, mention meds given and route, prescriptions, significant lab abnormalities, going to OR and other pertinent info. @ -Patient reevaluated and feeling much better. Patient is updated on results and plan. Patient will be admitted with cardiac consult. Admission orders written. Undiagnosed new problem with uncertain prognosis? @ -No Drug Therapy requiring intensive monitoring for toxicity (Heparin, Nitro, Insulin, Cardizem)? @ -No Were any procedures done? @ -No Diagnosis/symptom? @ -Chest pain Acute, or Chronic, or Acute on Chronic? @ -Acute Uncomplicated (without systemic symptoms) or Complicated (systemic symptoms)? @ -default Side effects of treatment? @ -No Exacerbation, Progression, or Severe Exacerbation? @ -No Poses a threat to life or bodily function? How? (Chest pain, [place], [place], pneumonia, PE, COPD, DKA, ARF, appy, cholecystitis, CVA, Diverticulitis, Homicidal, Suicidal, threat to staff... and all critical care pts) @ -No - Lab Data Result diagrams: 10/01/22 17:13 10/01/22 17:13 Lab Results 10/01/22 10/01/22 10/01/22 Range/Units 17:13 17:13 17:13 WBC 11.0 H (3.8-10.6) k/uL RBC 5.17 (3.80-5.40) m/uL Hgb 17.2 H (11.4-16.0) gm/dL Hct 49.6 H (34.0-46.0) % MCV 95.8 (80.0-100.0) fL MCH 33.2 (25.0-35.0) pg MCHC 34.6 (31.0-37.0) g/dL RDW 13.7 (11.5-15.5) % Plt Count 281 (150-450) k/uL MPV 7.2 Neutrophils % 82 % Lymphocytes % 11 % Monocytes % 6 % Eosinophils % 1 % Basophils % 0 % Neutrophils # 9.0 H (1.3-7.7) k/uL Lymphocytes # 1.2 (1.0-4.8) k/uL Monocytes # 0.6 (0-1.0) k/uL Eosinophils # 0.1 (0-0.7) k/uL Basophils # 0.0 (0-0.2) k/uL PT 10.0 (9.0-12.0) sec INR 0.9 (<1.2) APTT 20.9 L (22.0-30.0) sec D-Dimer <0.17 (<0.60) mg/L FEU Sodium 134 L (137-145) mmol/L Potassium 4.4 (3.5-5.1) mmol/L Chloride 101 (98-107) mmol/L Carbon Dioxide 23 (22-30) mmol/L Anion Gap 10 mmol/L BUN 27 H (7-17) mg/dL Creatinine 0.90 (0.52-1.04) mg/dL Est GFR (CKD-EPI)AfAm 77 (>60 ml/min/1.73 sqM) Est GFR (CKD-EPI)NonAf 67 (>60 ml/min/1.73 sqM) Glucose 98 (74-99) mg/dL Calcium 9.9 (8.4-10.2) mg/dL Magnesium 1.8 (1.6-2.3) mg/dL Total Bilirubin 1.0 (0.2-1.3) mg/dL AST 27 (14-36) U/L ALT 33 (4-34) U/L Alkaline Phosphatase 109 (38-126) U/L Troponin I (0.000-0.034) ng/mL NT-Pro-B Natriuret Pep pg/mL Total Protein 8.4 H (6.3-8.2) g/dL Albumin 4.7 (3.5-5.0) g/dL 10/01/22 10/01/22 Range/Units 17:13 17:13 WBC (3.8-10.6) k/uL RBC (3.80-5.40) m/uL Hgb (11.4-16.0) gm/dL Hct (34.0-46.0) % MCV (80.0-100.0) fL MCH (25.0-35.0) pg MCHC (31.0-37.0) g/dL RDW (11.5-15.5) % Plt Count (150-450) k/uL MPV Neutrophils % % Lymphocytes % % Monocytes % % Eosinophils % % Basophils % % Neutrophils # (1.3-7.7) k/uL Lymphocytes # (1.0-4.8) k/uL Monocytes # (0-1.0) k/uL Eosinophils # (0-0.7) k/uL Basophils # (0-0.2) k/uL PT (9.0-12.0) sec INR (<1.2) APTT (22.0-30.0) sec D-Dimer (<0.60) mg/L FEU Sodium (137-145) mmol/L Potassium (3.5-5.1) mmol/L Chloride (98-107) mmol/L Carbon Dioxide (22-30) mmol/L Anion Gap mmol/L BUN (7-17) mg/dL Creatinine (0.52-1.04) mg/dL Est GFR (CKD-EPI)AfAm (>60 ml/min/1.73 sqM) Est GFR (CKD-EPI)NonAf (>60 ml/min/1.73 sqM) Glucose (74-99) mg/dL Calcium (8.4-10.2) mg/dL Magnesium (1.6-2.3) mg/dL Total Bilirubin (0.2-1.3) mg/dL AST (14-36) U/L ALT (4-34) U/L Alkaline Phosphatase (38-126) U/L Troponin I <0.012 (0.000-0.034) ng/mL NT-Pro-B Natriuret Pep 143 pg/mL Total Protein (6.3-8.2) g/dL Albumin (3.5-5.0) g/dL Disposition Clinical Impression: Chest pain Disposition: ADMITTED IP TO THIS HOSP Is patient prescribed a controlled substance at d/c from ED?: No Referrals: Gregorio Garber MD [Primary Care Provider] - 1-2 days Time of Disposition: 19:27
--- NOTE | 2022-10-01 17:46 | XR ---
EXAMINATION TYPE: XR chest 2V DATE OF EXAM: 10/01/2022 COMPARISON: 06/28/2022 HISTORY: Chest pain TECHNIQUE: FINDINGS: Heart is normal. There is some coarse interstitial density in the lungs. No definite pleura l fluid. There are no hilar masses. Thoracic aorta is atheromatous. IMPRESSION: There is some pulmonary mild interstitial density that could be pulmonary fibrosis. No de finite heart failure. No significant change.
[2022-10-01 17:51] LABS: Basophils % (A) 0 %; Eosinophils # (A) 0.1 k/uL (0-0.7); Eosinophils % (A) 1 %; HCT 49.6 % (34.0-46.0); HGB 17.2 gm/dL (11.4-16.0); Lymphocytes # (A) 1.2 k/uL (1.0-4.8); Lymphocytes % (A) 11 %; MCH 33.2 pg (25.0-35.0); MCHC 34.6 g/dL (31.0-37.0); MCV 95.8 fL (80.0-100.0); Mean Platelet Volume 7.2; Monocytes # (A) 0.6 k/uL (0-1.0); Monocytes % (A) 6 %; Neutrophils % (A) 82 %; Platelet Count 281 k/uL (150-450); RBC 5.17 m/uL (3.80-5.40); RDW 13.7 % (11.5-15.5)
[2022-10-01 17:56] LABS: Albumin 4.7 g/dL (3.5-5.0); Calcium 9.9 mg/dL (8.4-10.2); Magnesium 1.8 mg/dL (1.6-2.3); Potassium 4.4 mmol/L (3.5-5.1); Total Protein 8.4 g/dL (6.3-8.2)
[2022-10-01 18:49] LABS: INR 0.9 (<1.2)
[2022-10-01 18:53] LABS: Partial Thromboplastin Time 20.9 sec (22.0-30.0)
[2022-10-01] MEDS ORDERED: ACETAMINOPHEN TAB 325 MG TAB PO STA (19:16)
[2022-10-01] MEDS ORDERED: NITROGLYCERIN SL TABS 0.4 MG TAB SUBLINGUAL PRN (19:28)
[2022-10-01] MEDS ORDERED: ALBUTEROL NEBULIZED 2.5 MG/3 ML INHALATION PRN (19:42)
[2022-10-01] MEDS ORDERED: HYDROcodone/APAP 7.5-325MG 1 EACH TAB PO PRN (19:42)
[2022-10-01] MEDS ORDERED: BENZONATATE 100 MG CAP PO PRN (19:42)
[2022-10-01] MEDS: clonazePAM 1 MG TAB PO SCH (21:05)
[2022-10-01] MEDS: atenoloL 50 MG TAB PO SCH (21:05)
[2022-10-01] MEDS: methylPREDNISolone SOD SUCCI 40 MG/ML 1 ML VIAL IV SCH (21:05)
[2022-10-01] MEDS: NITROGLYCERIN OINT 1 INCH/GM PACKET TOPICAL SCH (23:55)
--- NOTE | 2022-10-02 04:07 | HP ---
HISTORY AND PHYSICAL HISTORY OF PRESENT ILLNESS: A 66-year-old white female came to emergency room with shortness of breath, cough, congestion, or chest pain. Cardiac enzymes have negative troponin. MEDICATIONS: 1. Klonopin 1 mg t.i.d. 2. [place] 7.5 daily. 3. Crestor 40 daily. 4. Aspirin 81 daily. 5. Omeprazole 40 daily. 6. Metformin 500 daily. 7. Multivitamin daily. 8. Zoloft 100 daily. 9. Norvasc 5 mg daily. 10.Tenormin 50 b.i.d. ALLERGIES: [place], Darvocet. REVIEW OF SYSTEMS: A 14-point review of systems otherwise negative. PAST SURGICAL HISTORY: Appendectomy, bowel resection, heart catheterization, stent, hernia, tubal ligation, colonoscopy. FAMILY HISTORY: Mother with CHF. Father with cancer. PHYSICAL EXAMINATION: VITAL SIGNS: Blood pressure 170s over 80s, O2 of 97%, respiratory rate 16 to 18, pulse 50s. CARDIOVASCULAR: S1, S2. LUNGS: Scattered rhonchi and wheeze x4. HEMATOLOGY: Negative Homans. PSYCH: Fair mood and affect. HEENT: Pupils equal, round, reactive. NEUROLOGIC: Cranial nerves intact. PSYCH: Fair mood and affect. ASSESSMENT: Chronic obstructive pulmonary disease exacerbation, polycythemia, atypical chest pain. Prognosis guarded. IV steroids. Trend troponins. Wait for Cardiology consult. MMODL / IJN: [id number] /
[2022-10-02] MEDS: NITROGLYCERIN OINT 1 INCH/GM PACKET TOPICAL SCH ×2 (05:46→12:42)
[2022-10-02] MEDS: methylPREDNISolone SOD SUCCI 40 MG/ML 1 ML VIAL IV SCH ×3 (05:50→21:27)
[2022-10-02] MEDS: IPRATROPIUM-ALBUTEROL 3 ML NEB INHALATION SCH ×4 (08:18→18:59)
[2022-10-02] MEDS: clonazePAM 1 MG TAB PO SCH ×3 (08:40→19:59)
[2022-10-02] MEDS: SERTRALINE 100 MG TAB PO SCH (08:40)
[2022-10-02] MEDS: ATORVASTATIN 80 MG TAB PO SCH (08:40)
[2022-10-02] MEDS: MULTIVITAMINS, THERA 1 EACH TAB PO SCH (08:40)
[2022-10-02] MEDS: ASPIRIN 325 MG TAB PO SCH (08:40)
[2022-10-02] MEDS: amLODIPine 5 MG TAB PO SCH (08:40)
[2022-10-02] MEDS: PANTOPRAZOLE 40 MG TABLET PO SCH (08:40)
[2022-10-02] MEDS: ASPIRIN 81 MG PO SCH (08:40)
[2022-10-02] MEDS: CLOPIDOGREL 75 MG TAB PO SCH (08:40)
[2022-10-02] MEDS: atenoloL 50 MG TAB PO SCH ×2 (08:46→19:59)
[2022-10-02 09:28] LABS: Chol/HDL Ratio 3.03 Ratio; LDL Cholesterol,Calculated 145.9 mg/dL (0.0-131.0)
--- NOTE | 2022-10-02 09:44 | P.CRDCN ---
History of Present Illness Consult date: 10/02/22 Consult reason: shortness of breath Chief complaint: shortness of breath, sharp chest pains History of present illness: History of present illness: Patient is a pleasant 66-year-old female with significant past medical history of [place] [facility] [place] COPD, DVT, fibromyalgia, hyperlipidemia, hypertension, bilat illiac stents, and diabetes who presented to the emergency department for worsening shortness of breath and chest pains. She follows with Dr. Kim in the office. She believes that her symptoms are more related to her shortness of breath than actual chest pain. She has been having increasing shortness of breath over the past couple weeks, had a recent cold with cough but has gotten over this. Denies any fevers and chills. She is not on oxygen at home. She describes her chest pain episodes as sharp and "poking" that last less than a minute and have been occurring over the past couple days. Her symptoms improved when she was wearing her oxygen overnight. Her breathing is better this morning and she denies any chest pain episodes. Troponins were negative 3. EKG shows sinus bradycardia, 52 bpm, normal axis, no significant ST or T wave changes. She had a prior echocardiogram 06/30/22 with ejection fraction 55%, normal RVSP. Stress test previously done 01/29/2020 with no ev idence for reversible ischemia. She reports that she was asymptomatic with her prior cardiac stenting and heart cath was done because she had strong family history of CAD. REVIEW OF SYSTEMS: No fever or chills. No cough or expectoration. No diaphoresis. Patient denies headache, dizziness, blurred vision, double vision. Patient denies any stomach discomfort. No nausea, vomiting. No hematochezia. No hematemesis. Denies any black stools or blood in his stools. Denies dysuria or hematuria. No muscle weakness or numbness. No chest pain or pressure. PHYSICAL EXAMINATION: This is a 66-year-old female in no apparent distress at the time of my examination. HEENT: Head is atraumatic, normocephalic. Pupils are equal, round. Sclerae anicteric. Conjunctivae are clear. Mucous membranes of the mouth are moist. Neck is supple. There is no jugular venous distention. No carotid bruit is heard. CHEST EXAMINATION: Lungs are clear to auscultation. No chest wall tenderness is noted on palpation or with deep breathing. HEART EXAMINATION: Heart regular rate and rhythm. S1, S2 heard. No murmurs, gallops or rub. ABDOMEN: Soft, nontender. Bowel sounds are heard. EXTREMITIES: 2+ peripheral pulses with no evidence of peripheral edema and no calf tenderness noted. NEUROLOGIC EXAMINATION: Patient is awake, alert and oriented x3. IMPRESSION AND PLAN: 1. Shortness of breath, likely related to COPD exacerbation 2. Atypical chest pain 3. Hypertension 4. Hyperlipidemia 5. Diabetes type 2 PLAN: Chest pain is atypical, symptoms more likely to COPD exacerbation. She had a recent echo in June 2022 no need to repeat. Discussed the option for proceeding with stress test while in inpatient or as an outpatient, patient would like to do stress test as an outpatient. No further workup from a cardiology standpoint. She is clear for DC from cardiology. Follow up with Dr. Blank October 12 in the office as already scheduled. I am dictating on behalf of Dr. Bo Good's history/physical and assessment/plan. Past Medical History Past Medical History: Coronary Artery Disease (CAD), COPD, Deep Vein Thrombosis (DVT), Fibromyalgia, GERD/Reflux, Hyperlipidemia, Hypertension, Osteoarthritis (OA), Skin Disorder Additional Past Medical History / Comment(s): DIVERTICULITIS, HX KIDNEY STONE- still has it but it's never moved , Pneumonia, ROSACEA, DVT RLE 2007,gerson cataracts, BILAT ILIAC ARTERIES BLOCKED PER PT History of Any Multi-Drug Resistant Organisms: None Reported Past Surgical History: Appendectomy, Bowel Resection, Heart Catheterization With Stent, Hernia Repair, Tubal Ligation Additional Past Surgical History / Comment(s): COLONOSCOPY, PARTIAL LT LOBECTOMY-(pt stated they thought i might of had tb but it was just scar tissue), D & C, 07-17-14 BOWEL RESECTION, HEART CATH W 2 STENTS AT [facility] [place] 11-15-15 , 12-18-17 lap robotic assisted repair of inc hernia Past Anesthesia/Blood Transfusion Reactions: No Reported Reaction Date of Last Stent Placement:: 11-15-15 AT [facility] [place] Past Psychological History: Anxiety, Panic Disorder Additional Psychological History / Comment(s): PT IS INDEPENDANT-drives,LIVES WITH SPOUSE and 2 pet cats. has 3 adult children and 10 grandchildren. 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 Smoking Status: Former smoker Past Alcohol Use History: Occasional Additional Past Alcohol Use History / Comment(s): smoked since age 13 1ppd; QUIT 2008 Past Drug Use History: None Reported - Past Family History Mother Family Medical History: Congestive Heart Failure (CHF) Father Family Medical History: Cancer Additional Family Medical History / Comment(s): TYPE OF CANCER NOT KNOWN Medications and Allergies Home Medications Medication Instructions Recorded Confirmed Type clonazePAM [Clonazepam] 1 mg PO TID 02/20/14 10/01/22 History HYDROcodone/APAP 7.5-325MG [[place] 1 tab PO DAILY PRN 09/14/16 10/01/22 History 7.5-325] Rosuvastatin Calcium [Crestor] 40 mg PO DAILY 01/10/17 10/01/22 History Aspirin EC [Ecotrin Low Dose] 81 mg PO DAILY 01/27/20 10/01/22 History Clopidogrel Bisulfate [Plavix] 75 mg PO DAILY #90 tab 04/15/20 10/01/22 Rx Omeprazole 40 mg PO DAILY 09/22/21 10/01/22 History metFORMIN HCL 500 mg PO DAILY 09/22/21 10/01/22 History Multivit-Min/Iron/Folic/Lutein 1 tab PO DAILY 06/28/22 10/01/22 History [Centrum Silver Women Tablet] Sertraline [Zoloft] 100 mg PO DAILY 06/28/22 10/01/22 History amLODIPine [Norvasc] 5 mg PO DAILY 06/28/22 10/01/22 History atenoloL [Tenormin] 50 mg PO BID 06/28/22 10/01/22 History Benzonatate [Tessalon Perles] 200 mg PO TID PRN 7 Days #21 cap 06/30/22 10/01/22 Rx Albuterol Sulfate [Albuterol 2 puff INHALATION RT-Q6H PRN 10/01/22 10/01/22 History Sulfate Hfa] Allergies Allergy/AdvReac Type Severity Reaction Status Date / Time hydrocodone bitartrate AdvReac Nausea & Verified 10/01/22 17:34 [From Vicodin] Vomiting propoxyphene napsylate AdvReac Nausea & Verified 10/01/22 17:34 [From Darvocet-N 100] Vomiting Physical Exam Vitals: Vital Signs Temp Pulse Pulse Resp BP BP Pulse Ox 10/02/22 08:29 56 L 10/02/22 08:18 52 L 10/02/22 07:00 97.6 F 52 L 16 179/75 98 10/02/22 02:00 97.5 F L 54 L 17 146/73 96 10/01/22 20:00 98.2 F 51 L 16 139/80 92 L 10/01/22 19:29 97.9 F 52 L 20 167/87 98 10/01/22 18:10 97.8 F 51 L 18 161/91 98 10/01/22 17:30 52 L 20 97 10/01/22 16:40 52 L 10/01/22 16:31 98.0 F 59 L 22 172/84 97 Intake and Output 10/01/22 10/02/22 10/02/22 22:59 06:59 14:59 Other: Voiding Method Toilet Toilet # Voids 2 2 Weight 72.575 kg Results 10/01/22 17:13 10/01/22 17:13 Cardiac Enzymes 10/01/22 10/01/22 10/01/22 Range/Units 17:13 17:13 20:31 AST 27 (14-36) U/L Troponin I <0.012 <0.012 (0.000-0.034) ng/mL 10/02/22 Range/Units 00:09 AST (14-36) U/L Troponin I <0.012 (0.000-0.034) ng/mL Coagulation 10/01/22 Range/Units 17:13 PT 10.0 (9.0-12.0) sec APTT 20.9 L (22.0-30.0) sec CBC 10/01/22 Range/Units 17:13 WBC 11.0 H (3.8-10.6) k/uL RBC 5.17 (3.80-5.40) m/uL Hgb 17.2 H (11.4-16.0) gm/dL Hct 49.6 H (34.0-46.0) % Plt Count 281 (150-450) k/uL Comprehensive Metabolic Panel 10/01/22 Range/Units 17:13 Sodium 134 L (137-145) mmol/L Potassium 4.4 (3.5-5.1) mmol/L Chloride 101 (98-107) mmol/L Carbon Dioxide 23 (22-30) mmol/L BUN 27 H (7-17) mg/dL Creatinine 0.90 (0.52-1.04) mg/dL Glucose 98 (74-99) mg/dL Calcium 9.9 (8.4-10.2) mg/dL AST 27 (14-36) U/L ALT 33 (4-34) U/L Alkaline Phosphatase 109 (38-126) U/L Total Protein 8.4 H (6.3-8.2) g/dL Albumin 4.7 (3.5-5.0) g/dL Current Medications Generic Name Dose Route Start Last Admin Trade Name Freq PRN Reason Stop Dose Admin Hydrocodone Bitart/Acetaminophen 1 each 10/01/22 19:42 Hydrocodone/Apap 7.5-325mg 1 Each Tab PO DAILY PRN Pain Albuterol Sulfate 2.5 mg 10/01/22 19:42 Albuterol Nebulized 2.5 Mg/3 Ml INHALATION RT-Q6H PRN Shortness Of Breath Albuterol/Ipratropium 3 ml 10/02/22 08:00 10/02/22 08:18 Ipratropium-Albuterol 3 Ml Neb INHALATION 3 ml RT-QID JUAN J Administration Amlodipine Besylate 5 mg 10/02/22 09:00 10/02/22 08:40 Amlodipine 5 Mg Tab PO 5 mg DAILY JUAN J Administration Aspirin 325 mg 10/02/22 09:00 10/02/22 08:40 Aspirin 325 Mg Tab PO 325 mg DAILY JUAN J Administration Aspirin 81 mg 10/02/22 09:00 10/02/22 08:40 Aspirin 81 Mg PO Not Given DAILY [facility] Atenolol 50 mg 10/01/22 21:00 10/02/22 08:46 Atenolol 50 Mg Tab PO 50 mg BID JUAN J Administration Atorvastatin Calcium 80 mg 10/02/22 09:00 10/02/22 08:40 Atorvastatin 80 Mg Tab PO 80 mg DAILY JUAN J Administration Benzonatate 200 mg 10/01/22 19:42 Benzonatate 100 Mg Cap PO TID PRN Cough Clonazepam 1 mg 10/01/22 22:00 10/02/22 08:40 Clonazepam 1 Mg Tab PO 1 mg TID JUAN J Administration Clopidogrel Bisulfate 75 mg 10/02/22 09:00 10/02/22 08:40 Clopidogrel 75 Mg Tab PO 75 mg DAILY JUAN J Administration Methylprednisolone Sodium Succinate 40 mg 10/01/22 22:00 10/02/22 05:50 Methylprednisolone Sod Succi 40 Mg/Ml 1 Ml Vial IV 40 mg Q8H JUAN J Administration Multivitamins 1 each 10/02/22 09:00 10/02/22 08:40 Multivitamins, Thera 1 Each Tab PO 1 each DAILY JUAN J Administration Nitroglycerin 0.4 mg 10/01/22 19:28 Nitroglycerin Sl Tabs 0.4 Mg Tab SUBLINGUAL Q5M PRN Chest Pain Nitroglycerin 1 inch 10/02/22 00:00 10/02/22 05:46 Nitroglycerin Oint 1 Inch/Gm Packet TOPICAL Not Given Q6HR [facility] Pantoprazole Sodium 40 mg 10/02/22 09:00 10/02/22 08:40 Pantoprazole 40 Mg Tablet PO 40 mg DAILY JUAN J Administration Sertraline HCl 100 mg 10/02/22 09:00 10/02/22 08:40 Sertraline 100 Mg Tab PO 100 mg DAILY JUAN J Administration Intake and Output 10/01/22 10/02/22 10/02/22 22:59 06:59 14:59 Other: Voiding Method Toilet Toilet # Voids 2 2 Weight 72.575 kg 10/01/22 17:13 10/01/22 17:13
[2022-10-02] MEDS: hydrALAZINE HCL 20 MG/ML 1 ML VIAL IVP PRN (17:16)
[2022-10-02] MEDS: ACETAMINOPHEN TAB 325 MG TAB PO PRN (17:16)
[2022-10-02] MEDS: BUDESONIDE 0.5 MG/2 ML NEBU INHALATION SCH (19:00)
[2022-10-03] MEDS: ACETAMINOPHEN TAB 325 MG TAB PO PRN ×2 (00:47→08:18)
[2022-10-03] MEDS: hydrALAZINE HCL 20 MG/ML 1 ML VIAL IVP PRN (00:47)
--- NOTE | 2022-10-03 01:59 | PN ---
PROGRESS NOTE SUBJECTIVE: This is a 66-year-old white female, admitted with chest pain. Cardiology has cleared her for discharge. She is admitted with COPD exacerbation. Pulmonary consult pending. Continue on increased Solu-Medrol 60 q.8h. OBJECTIVE: CARDIOVASCULAR: S1, S2. LUNGS: Scattered wheeze. HEMATOLOGY: Negative for Homans. ASSESSMENT: Chronic obstructive pulmonary disease exacerbation, atypical chest pain, continue IV steroids. PROGNOSIS: Guarded. Follow up next 24 to 48 hours. MMODL / IJN: [id number] /
[2022-10-03] MEDS: methylPREDNISolone SOD SUCCI 40 MG/ML 1 ML VIAL IV SCH ×3 (05:54→20:20)
[2022-10-03] MEDS: ASPIRIN 325 MG TAB PO SCH (08:18)
[2022-10-03] MEDS: amLODIPine 5 MG TAB PO SCH (08:18)
[2022-10-03] MEDS: atenoloL 50 MG TAB PO SCH ×2 (08:18→20:20)
[2022-10-03] MEDS: SERTRALINE 100 MG TAB PO SCH (08:19)
[2022-10-03] MEDS: PANTOPRAZOLE 40 MG TABLET PO SCH ×2 (08:19→17:39)
[2022-10-03] MEDS: CLOPIDOGREL 75 MG TAB PO SCH (08:19)
[2022-10-03] MEDS: clonazePAM 1 MG TAB PO SCH ×3 (08:19→20:20)
[2022-10-03] MEDS: MULTIVITAMINS, THERA 1 EACH TAB PO SCH (08:19)
[2022-10-03] MEDS: ATORVASTATIN 80 MG TAB PO SCH (08:19)
[2022-10-03] MEDS: ASPIRIN 81 MG PO SCH (08:20)
[2022-10-03] MEDS: IPRATROPIUM-ALBUTEROL 3 ML NEB INHALATION SCH ×4 (08:53→20:02)
[2022-10-03] MEDS: BUDESONIDE 0.5 MG/2 ML NEBU INHALATION SCH ×2 (08:53→20:02)
--- NOTE | 2022-10-04 02:41 | PN ---
PROGRESS NOTE SUBJECTIVE: This is a 66-year-old white female with atypical chest pain, COPD exacerbation, on IV steroids, anxiety medicines. OBJECTIVE: CARDIOVASCULAR: S1, S2. LUNGS: Scattered wheeze x4. HEMATOLOGY: Negative for Homans. PSYCH: Fair mood and affect. ASSESSMENT: Insulin-dependent diabetes mellitus, COPD exacerbation acute hypoxemic respiratory distress continue current treatment. Follow up with him 20 for 48 hours. Possible discharge home O2. MMODL / IJN: [id number] /
[2022-10-04] MEDS: hydrALAZINE HCL 20 MG/ML 1 ML VIAL IVP PRN ×2 (04:33→21:20)
[2022-10-04] MEDS: methylPREDNISolone SOD SUCCI 40 MG/ML 1 ML VIAL IV SCH ×3 (05:15→21:14)
[2022-10-04] MEDS: PANTOPRAZOLE 40 MG TABLET PO SCH ×2 (05:16→14:41)
[2022-10-04] MEDS: ASPIRIN 81 MG PO SCH (07:40)
[2022-10-04] MEDS: ASPIRIN 325 MG TAB PO SCH (07:40)
[2022-10-04] MEDS: CLOPIDOGREL 75 MG TAB PO SCH (07:40)
[2022-10-04] MEDS: atenoloL 50 MG TAB PO SCH ×2 (07:40→21:13)
[2022-10-04] MEDS: SERTRALINE 100 MG TAB PO SCH (07:40)
[2022-10-04] MEDS: clonazePAM 1 MG TAB PO SCH ×3 (07:40→21:13)
[2022-10-04] MEDS: ATORVASTATIN 80 MG TAB PO SCH (07:41)
[2022-10-04] MEDS: ACETAMINOPHEN TAB 325 MG TAB PO PRN ×2 (07:41→21:21)
[2022-10-04] MEDS: MULTIVITAMINS, THERA 1 EACH TAB PO SCH (07:41)
[2022-10-04] MEDS: amLODIPine 5 MG TAB PO SCH (07:41)
[2022-10-04] MEDS: IPRATROPIUM-ALBUTEROL 3 ML NEB INHALATION SCH ×4 (07:45→20:15)
[2022-10-04] MEDS: BUDESONIDE 0.5 MG/2 ML NEBU INHALATION SCH ×2 (07:45→20:15)
--- NOTE | 2022-10-04 15:31 | P.CNPUL ---
History of Present Illness Consult date: 10/04/22 Reason for consult: dyspnea, cough, COPD, hypoxemia Chief complaint: Shortness of breath History of present illness: Patient is oxygen dependent presented into the hospital with ongoing chest discomfort going on for several days with waxing and waning character associated shortness of breath is present as well predominantly on exertion, and eyes any fever or chills denies any loss of consciousness her prior medical history significant for coronary artery disease, deep venous thrombosis, fibromyalgia, GERD, dyslipidemia, hypertension hypertensive cardiovascular disease, diabetic colitis, renal calculi, patient has partial left lobectomy for non-neoplastic mass. On arrival she was afebrile somewhat blurred bradycardic with slightly elevated blood pressure however CBC noted to have leukocytosis with WBC count of 11,000, myoglobin hematocrit elevated 17/49.6, patient noted to have elevated cholesterol of 262. She has been on bronchodilator supplemental oxygen antihypertensive agents statins, and usual home medicines along with IV steroids patient has been concerned about her prior computed tomography scan performed back in June for abnormalities seen , computed tomography scan reviewed by myself noted to have bullous changes consistent with COPD and nonspecific pulmonary fibrosis seen at the bases of left lung had recent chest x-ray performed on October 01 continue show basal pulmonary fibrotic process in the left lower lobe which appears to be nonspecific. Patient last set of vitals reviewed repeat afebrile with stable heart rate and blood pressure slightly on the higher side 155/70 saturation is 96%, patient has history of snoring and excessive sleepiness will benefit from sleep study as outpatient Review of Systems All systems: negative Past Medical History Past Medical History: Coronary Artery Disease (CAD), COPD, Deep Vein Thrombosis (DVT), Fibromyalgia, GERD/Reflux, Hyperlipidemia, Hypertension, Osteoarthritis (OA), Skin Disorder Additional Past Medical History / Comment(s): DIVERTICULITIS, HX KIDNEY STONE- still has it but it's never moved , Pneumonia, ROSACEA, DVT RLE 2007,gerson cataracts, BILAT ILIAC ARTERIES BLOCKED PER PT History of Any Multi-Drug Resistant Organisms: None Reported Past Surgical History: Appendectomy, Bowel Resection, Heart Catheterization With Stent, Hernia Repair, Tubal Ligation Additional Past Surgical History / Comment(s): COLONOSCOPY, PARTIAL LT LOBECTOMY-(pt stated they thought i might of had tb but it was just scar tissue), D & C, 1-9-15 BOWEL RESECTION, HEART CATH W 2 STENTS AT [facility] [place] 11-15-15 , 12-18-17 lap robotic assisted repair of inc hernia Past Anesthesia/Blood Transfusion Reactions: No Reported Reaction Date of Last Stent Placement:: 11-15-15 AT [facility] [place] Past Psychological History: Anxiety, Panic Disorder Additional Psychological History / Comment(s): PT IS INDEPENDANT-drives,LIVES WITH SPOUSE and 2 pet cats. has 3 adult children and 10 grandchildren. 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 Smoking Status: Former smoker Past Alcohol Use History: Occasional Additional Past Alcohol Use History / Comment(s): smoked since age 13 1ppd; QUIT 2008 Past Drug Use History: None Reported - Past Family History Mother Family Medical History: Congestive Heart Failure (CHF) Father Family Medical History: Cancer Additional Family Medical History / Comment(s): TYPE OF CANCER NOT KNOWN Medications and Allergies Home Medications Medication Instructions Recorded Confirmed Type clonazePAM [Clonazepam] 1 mg PO TID 02/20/14 10/01/22 History HYDROcodone/APAP 7.5-325MG [[place] 1 tab PO DAILY PRN 09/14/16 10/01/22 History 7.5-325] Rosuvastatin Calcium [Crestor] 40 mg PO DAILY 01/10/17 10/01/22 History Aspirin EC [Ecotrin Low Dose] 81 mg PO DAILY 01/27/20 10/01/22 History Clopidogrel Bisulfate [Plavix] 75 mg PO DAILY #90 tab 04/15/20 10/01/22 Rx Omeprazole 40 mg PO DAILY 09/22/21 10/01/22 History metFORMIN HCL 500 mg PO DAILY 09/22/21 10/01/22 History Multivit-Min/Iron/Folic/Lutein 1 tab PO DAILY 06/28/22 10/01/22 History [Centrum Silver Women Tablet] Sertraline [Zoloft] 100 mg PO DAILY 06/28/22 10/01/22 History amLODIPine [Norvasc] 5 mg PO DAILY 06/28/22 10/01/22 History atenoloL [Tenormin] 50 mg PO BID 06/28/22 10/01/22 History Benzonatate [Tessalon Perles] 200 mg PO TID PRN 7 Days #21 cap 06/30/22 10/01/22 Rx Albuterol Sulfate [Albuterol 2 puff INHALATION RT-Q6H PRN 10/01/22 10/01/22 History Sulfate Hfa] Allergies Allergy/AdvReac Type Severity Reaction Status Date / Time hydrocodone bitartrate AdvReac Nausea & Verified 10/01/22 17:34 [From Vicodin] Vomiting propoxyphene napsylate AdvReac Nausea & Verified 10/01/22 17:34 [From Darvocet-N 100] Vomiting Physical Exam Vitals: Vital Signs Temp Pulse Pulse Resp BP Pulse Ox 10/04/22 07:57 68 18 10/04/22 07:45 67 18 95 10/04/22 07:20 97.6 F 61 18 160/85 95 10/04/22 05:19 155/74 10/04/22 04:27 97.8 F 62 18 181/78 95 10/03/22 19:32 97.6 F 78 18 179/69 96 10/03/22 16:26 64 10/03/22 16:12 68 Intake and Output 10/04/22 10/04/22 10/04/22 06:59 14:59 22:59 Other: Voiding Method Toilet # Voids 2 - Constitutional General appearance: average body habitus, cooperative, disheveled, mild distress - EENT Eyes: EOMI, PERRLA ENT: normal oropharynx Ears: bilateral: normal - Neck Carotids: bilateral: upstroke normal Thyroid: bilateral: normal size - Respiratory Respiratory: bilateral: CTA - Cardiovascular Rhythm: regular Heart sounds: normal: S1, S2 - Gastrointestinal General gastrointestinal: normal bowel sounds, soft - Neurologic Neurologic: CNII-XII intact - Musculoskeletal Musculoskeletal: gait normal, generalized weakness, strength equal bilaterally - Psychiatric Psychiatric: A&O x's 3, appropriate affect, intact judgment & insight Results - Laboratory Findings CBC and BMP: 10/01/22 17:13 10/01/22 17:13 PT/INR, D-dimer PT 10.0 sec (9.0-12.0) 10/01/22 17:13 INR 0.9 (<1.2) 10/01/22 17:13 D-Dimer <0.17 mg/L FEU (<0.60) 10/01/22 17:13 Abnormal lab findings: Abnormal Labs 10/01/22 10/01/22 10/01/22 17:13 17:13 17:13 WBC 11.0 H Hgb 17.2 H Hct 49.6 H Neutrophils # 9.0 H APTT 20.9 L Sodium 134 L BUN 27 H Total Protein 8.4 H Cholesterol LDL Cholesterol, Calc HDL Cholesterol 10/02/22 05:36 WBC Hgb Hct Neutrophils # APTT Sodium BUN Total Protein Cholesterol 262.00 H LDL Cholesterol, Calc 145.9 H HDL Cholesterol 86.50 H - Diagnostic Findings Chest x-ray: report reviewed, image reviewed Assessment and Plan Assessment: Acute COPD exacerbation Chest pain appeared to be atypical Nonspecific pulmonary fibrosis likely related to prior surgery History of non-neoplastic mass resection from the left lung Hypertension hypertensive cardiovascular disease Dyslipidemia Type 2 diabetes mellitus Morbid obesity and likely sleep disorder breathing and sleep apnea Plan: Continue bronchodilator, however would recommend to discontinue IV steroids Increase activity as tolerated Patient has pulmonary fibrosis appeared to be nonspecific will evaluate monitor and follow as outpatient PFT and sleep study as outpatient
[2022-10-05] MEDS: ACETAMINOPHEN TAB 325 MG TAB PO PRN ×2 (03:42→08:43)
[2022-10-05] MEDS: hydrALAZINE HCL 20 MG/ML 1 ML VIAL IVP PRN (03:43)
[2022-10-05 06:02] VITALS: RESP 18
[2022-10-05] MEDS: PANTOPRAZOLE 40 MG TABLET PO SCH ×2 (06:39→17:47)
[2022-10-05] MEDS: methylPREDNISolone SOD SUCCI 40 MG/ML 1 ML VIAL IV SCH ×3 (06:39→21:42)
[2022-10-05] MEDS: BUDESONIDE 0.5 MG/2 ML NEBU INHALATION SCH ×2 (07:46→19:20)
[2022-10-05] MEDS: IPRATROPIUM-ALBUTEROL 3 ML NEB INHALATION SCH ×4 (07:46→19:20)
[2022-10-05] MEDS: ASPIRIN 325 MG TAB PO SCH (08:43)
[2022-10-05] MEDS: CLOPIDOGREL 75 MG TAB PO SCH (08:43)
[2022-10-05] MEDS: atenoloL 50 MG TAB PO SCH ×2 (08:43→21:42)
[2022-10-05] MEDS: clonazePAM 1 MG TAB PO SCH ×3 (08:43→21:42)
[2022-10-05] MEDS: MULTIVITAMINS, THERA 1 EACH TAB PO SCH (08:43)
[2022-10-05] MEDS: amLODIPine 5 MG TAB PO SCH (08:43)
[2022-10-05] MEDS: ATORVASTATIN 80 MG TAB PO SCH (08:43)
[2022-10-05] MEDS: ASPIRIN 81 MG PO SCH (08:43)
[2022-10-05] MEDS: SERTRALINE 100 MG TAB PO SCH (08:44)
[2022-10-05] MEDS: hydrALAZINE HCL 50 MG TAB PO SCH (21:42)
[2022-10-06] MEDS: PANTOPRAZOLE 40 MG TABLET PO SCH (06:26)
[2022-10-06] MEDS: methylPREDNISolone SOD SUCCI 40 MG/ML 1 ML VIAL IV SCH (06:26)
[2022-10-06 07:26] VITALS: BP 159/97; TEMP 98
[2022-10-06] MEDS: BUDESONIDE 0.5 MG/2 ML NEBU INHALATION SCH (08:45)
[2022-10-06] MEDS: IPRATROPIUM-ALBUTEROL 3 ML NEB INHALATION SCH ×2 (08:45→11:33)
[2022-10-06 08:51] VITALS: PULSE 80
[2022-10-06] MEDS: ASPIRIN 325 MG TAB PO SCH (09:40)
[2022-10-06] MEDS: atenoloL 50 MG TAB PO SCH (09:49)
[2022-10-06] MEDS: clonazePAM 1 MG TAB PO SCH (09:49)
[2022-10-06] MEDS: SERTRALINE 100 MG TAB PO SCH (09:49)
[2022-10-06] MEDS: amLODIPine 5 MG TAB PO SCH (09:49)
[2022-10-06] MEDS: hydrALAZINE HCL 50 MG TAB PO SCH (09:49)
[2022-10-06] MEDS: MULTIVITAMINS, THERA 1 EACH TAB PO SCH (09:49)
[2022-10-06] MEDS: ATORVASTATIN 80 MG TAB PO SCH (09:50)
[2022-10-06] MEDS: ASPIRIN 81 MG PO SCH (09:50)
[2022-10-06] MEDS: CLOPIDOGREL 75 MG TAB PO SCH (09:50)
--- NOTE | 2022-10-06 11:13 | P.PN ---
Subjective Progress Note Date: 10/06/22 Principal diagnosis: Hypertensive Urgency Acute COPD exacerbation Chest pain appeared to be atypical Nonspecific pulmonary fibrosis likely related to prior surgery History of non-neoplastic mass resection from the left lung Hypertension hypertensive cardiovascular disease Dyslipidemia Type 2 diabetes mellitus Morbid obesity and likely sleep disorder breathing and sleep apnea 10/07/2019, patient seen eval reexamined shortness of breath improved intermittent dry nonproductive cough is present, blood pressure however continued to be elevated on multiple antihypertensive agents medicine are being adjusted patient has been tried off of oxygen with room air saturations 98%, heart rate is 55, blood pressure last check was 160/97, patient currently on multiple antihypertensive agent including Norvasc, few hydralazine, also IV hydralazine as needed. Patient has been on IV steroid as respiratory status significantly improved recommend to stop it and observe as some contribution appears to be from IV steroids Patient is oxygen dependent presented into the hospital with ongoing chest discomfort going on for several days with waxing and waning character associated shortness of breath is present as well predominantly on exertion, and eyes any fever or chills denies any loss of consciousness her prior medical history significant for coronary artery disease, deep venous thrombosis, fibromyalgia, GERD, dyslipidemia, hypertension hypertensive cardiovascular disease, diabetic colitis, renal calculi, patient has partial left lobectomy for non-neoplastic mass. On arrival she was afebrile somewhat blurred bradycardic with slightly elevated blood pressure however CBC noted to have leukocytosis with WBC count of 11,000, myoglobin hematocrit elevated 17/49.6, patient noted to have elevated cholesterol of 262. She has been on bronchodilator supplemental oxygen an tihypertensive agents statins, and usual home medicines along with IV steroids patient has been concerned about her prior computed tomography scan performed back in June for abnormalities seen , computed tomography scan reviewed by myself noted to have bullous changes consistent with COPD and nonspecific pulmonary fibrosis seen at the bases of left lung had recent chest x-ray performed on October 01 continue show basal pulmonary fibrotic process in the left lower lobe which appears to be nonspecific. Patient last set of vitals reviewed repeat afebrile with stable heart rate and blood pressure slightly on the higher side 155/70 saturation is 96%, patient has history of snoring and excessive sleepiness will benefit from sleep study as outpatient Objective - Vital Signs Vital signs: Vital Signs Temp 98 F 10/06/22 07:24 Pulse 80 10/06/22 09:07 Resp 18 10/06/22 07:24 BP 159/97 10/06/22 07:24 Pulse Ox 96 10/06/22 07:24 FiO2 21 10/03/22 08:54 Intake & Output 10/05/22 10/06/22 10/06/22 18:59 06:59 18:59 Intake Total 120 Balance 120 Intake: Oral 120 Other: Voiding Method Toilet # Voids 2 - Exam Constitutional General appearance: average body habitus, cooperative, disheveled, mild distress - EENT Eyes: EOMI, PERRLA ENT: normal oropharynx Ears: bilateral: normal - Neck Carotids: bilateral: upstroke normal Thyroid: bilateral: normal size - Respiratory Respiratory: bilateral: CTA - Cardiovascular Rhythm: regular Heart sounds: normal: S1, S2 - Gastrointestinal General gastrointestinal: normal bowel sounds, soft - Neurologic Neurologic: CNII-XII intact - Musculoskeletal Musculoskeletal: gait normal, generalized weakness, strength equal bilaterally - Psychiatric Psychiatric: A&O x's 3, appropriate affect, intact judgment & insight - Labs CBC & Chem 7: 10/01/22 17:13 10/01/22 17:13 Assessment and Plan Assessment: Hypertensive urgency Acute COPD exacerbation Chest pain appeared to be atypical Nonspecific pulmonary fibrosis likely related to prior surgery History of non-neoplastic mass resection from the left lung Hypertension hypertensive cardiovascular disease Dyslipidemia Type 2 diabetes mellitus Morbid obesity and likely sleep disorder breathing and sleep apnea Plan: Continue bronchodilator, however would recommend to discontinue IV steroids Increase activity as tolerated Patient has pulmonary fibrosis appeared to be nonspecific will evaluate monitor and follow as outpatient PFT and sleep study as outpatient Time with Patient: Greater than 30
--- NOTE | 2022-10-06 13:13 | PN ---
PROGRESS NOTE SUBJECTIVE: This 66-year-old white female doing better, to be discharged home over to the [facility] and she is breathing better, OBJECTIVE: CARDIOVASCULAR: S1, S2. LUNGS: Clear. GI: Soft. Hematology: Negative for Homans. Please see further orders. MMODL / IJN: [id number] /
--- NOTE | 2022-10-24 10:01 | DS ---
DISCHARGE SUMMARY MEDICATIONS: 1. Klonopin 1 mg t.i.d. 2. [place] 7.5 daily. 3. Crestor 40 mg daily. 4. Aspirin 81 mg daily. 5. Plavix 75 mg daily. 6. Metformin 500 daily. 7. Omeprazole 40 daily. 8. Zoloft 100 mg daily. 9. Tenormin 50 b.i.d. 10.Norvasc 5 mg daily. 11.Multivitamin daily. 12.Tessalon Perles 100 t.i.d. 13.Albuterol sulfate 2 puffs q.4 hours p.r.n. 14.DuoNeb q.i.d. 15. . 16.Protonix 40 mg b.i.d. 17. . 18.Tylenol 500 q.48 hours. CONDITION: Stable. PROGNOSIS: Guarded. Ambulate as tolerated. HOSPITAL COURSE: The patient came in with COPD exacerbation, tracheobronchitis, hypertensive urgency, atypical chest pain, pulmonary fibrosis, benign neoplastic mass resection of the lung with extensive cardiovascular disease, dyslipidemia, type 2 diabetes mellitus, treated with IV steroids updrafts, seen by Route Sales Manager. Blood pressure is under better control. IV steroids were given for COPD. She is qualified to wear oxygen at home. She was supposed to wear oxygen in the hospital. She can be sent home in stable condition once cleared for discharge by Route Sales Manager. We will send home to follow up as outpatient. Prognosis guarded. MMODL / IJN: [id number] /
== END 2022-10-06 14:50 | disposition home or self-care (01) ==
LOC: EC 16:24 → 6NMEDSUR 19:28 → INTOOBSV 10-03 17:25 → OBSVTOIN 10-03 17:25 → UNDODISIN 10-06 14:50
PROVIDERS: ADMIT Family Medicine; ATTEND Family Medicine
DX: J44.1 Chronic obstructive pulmonary disease with (acute) exacerbation (principal); R07.89 Other chest pain; I16.0 Hypertensive urgency; J84.10 Pulmonary fibrosis, unspecified; D75.1 Secondary polycythemia; R00.1 Bradycardia, unspecified; I25.10 Atherosclerotic heart disease of native coronary artery without angina pectoris; K21.9 Gastro-esophageal reflux disease without esophagitis; E11.9 Type 2 diabetes mellitus without complications; M79.7 Fibromyalgia; E66.9 Obesity, unspecified; F41.0 Panic disorder [episodic paroxysmal anxiety]; E78.5 Hyperlipidemia, unspecified; I11.9 Hypertensive heart disease without heart failure; Z79.82 Long term (current) use of aspirin; Z79.899 Other long term (current) drug therapy; Z79.84 Long term (current) use of oral hypoglycemic drugs; Z86.718 Personal history of other venous thrombosis and embolism; Z98.42 Cataract extraction status, left eye; Z98.41 Cataract extraction status, right eye; Z98.51 Tubal ligation status; Z95.5 Presence of coronary angioplasty implant and graft; Z87.891 Personal history of nicotine dependence; Z82.49 Family history of ischemic heart disease and other diseases of the circulatory system; Z80.9 Family history of malignant neoplasm, unspecified; Z99.81 Dependence on supplemental oxygen; Z90.2 Acquired absence of lung [part of]; Z68.33 Body mass index [BMI] 33.0-33.9, adult
CPT/HCPCS: 36415; 71046; 80053; 80061; 83735; 83880; 84145; 84484; 85025; 85379; 85610; 85730; 93005; 94640; 94760; 96374; 96375; 96376; 99285

== ENCOUNTER 2022-10-18 17:27 | Inpatient (IN) | payer MEDICARE ==
[2022-10-18] MEDS ORDERED: SODIUM CHLORIDE 0.9% 1,000 ML IV STA (18:25)
--- NOTE | 2022-10-18 18:30 | ED ---
General Adult HPI - General Chief complaint: Shortness of Breath Stated complaint: LOW BP REF BY DOC Time Seen by Provider: 10/18/22 18:00 Source: patient, RN notes reviewed, old records reviewed Mode of arrival: wheelchair Limitations: no limitations - History of Present Illness Initial comments: This is a 66-year-old female who presents emergency Department stating for at least 2 weeks she has not been feeling very strong that she's getting weaker and weaker she states she was admitted to the hospital last week and since then she's not getting any better. Patient states something is wrong today she was able to stand up but she couldn't hold herself up for a long she fell down onto her knees. Patient states she didn't herself but she just doesn't feel a chest strength anymore to get around. Patient states she took her blood pressure today at home and it was systolic 85 when she arrived at the ER with the same. Patient denies any fever chills or cough. Patient denies lightheadedness or dizziness. Patient denies any chest pain palpitations difficulty breathing first breath. Patient denies abdominal pain patient denies nausea vomiting or diarrhea. - Related Data Home Medications Medication Instructions Recorded Confirmed clonazePAM [Clonazepam] 1 mg PO TID 02/20/14 10/18/22 HYDROcodone/APAP 7.5-325MG [[place] 1 tab PO DAILY PRN 09/14/16 10/18/22 7.5-325] Rosuvastatin Calcium [Crestor] 40 mg PO DAILY 01/10/17 10/18/22 Aspirin EC [Ecotrin Low Dose] 81 mg PO DAILY 01/27/20 10/18/22 metFORMIN HCL 500 mg PO DAILY 09/22/21 10/18/22 Multivit-Min/Iron/Folic/Lutein 1 tab PO DAILY 06/28/22 10/18/22 [Centrum Silver Women Tablet] Sertraline [Zoloft] 100 mg PO DAILY 06/28/22 10/18/22 amLODIPine [Norvasc] 5 mg PO HS 06/28/22 10/18/22 atenoloL [Tenormin] 50 mg PO DAILY 06/28/22 10/18/22 Albuterol Sulfate [Albuterol 2 puff INHALATION RT-Q6H PRN 10/01/22 10/18/22 Sulfate Hfa] hydrALAZINE HCL [Apresoline] 100 mg PO BID 10/18/22 10/18/22 Previous Rx's Medication Instructions Recorded Clopidogrel Bisulfate [Plavix] 75 mg PO DAILY #90 tab 04/15/20 Acetaminophen Tab [Tylenol] 650 mg PO Q6HR PRN tab 10/05/22 Budesonide [Pulmicort] 0.5 mg INHALATION RT-BID 90 Days 10/05/22 #180 ml Ipratropium-Albuterol Nebulize 3 ml INHALATION RT-QID 30 Days 10/05/22 [Duoneb 0.5 mg-3 mg/3 ml Soln] #120 each Nitroglycerin Sl Tabs [Nitrostat] 0.4 mg SUBLINGUAL Q5M PRN tab 10/05/22 Pantoprazole [Protonix] 40 mg PO AC-BID 90 Days #180 tab 10/05/22 Allergies Allergy/AdvReac Type Severity Reaction Status Date / Time hydrocodone bitartrate AdvReac Nausea & Verified 10/18/22 19:37 [From Vicodin] Vomiting propoxyphene napsylate AdvReac Nausea & Verified 10/18/22 19:37 [From Darvocet-N 100] Vomiting Review of Systems ROS Statement: Those systems with pertinent positive or pertinent negative responses have been documented in the HPI. ROS Other: All systems not noted in ROS Statement are negative. Past Medical History Past Medical History: Coronary Artery Disease (CAD), COPD, Deep Vein Thrombosis (DVT), Fibromyalgia, GERD/Reflux, Hyperlipidemia, Hypertension, Osteoarthritis (OA), Skin Disorder Additional Past Medical History / Comment(s): DIVERTICULITIS, HX KIDNEY STONE- still has it but it's never moved , Pneumonia, ROSACEA, DVT RLE 2007,gerson cataracts, BILAT ILIAC ARTERIES BLOCKED PER PT History of Any Multi-Drug Resistant Organisms: None Reported Past Surgical History: Appendectomy, Bowel Resection, Heart Catheterization With Stent, Hernia Repair, Tubal Ligation Additional Past Surgical History / Comment(s): COLONOSCOPY, PARTIAL LT LOBECTOMY-(pt stated they thought i might of had tb but it was just scar tissue), D & C, 07-17-14 BOWEL RESECTION, HEART C[place] 2 [place] [facility] [place] , 12-18-17 lap robotic assisted repair of inc hernia Past Anesthesia/Blood Transfusion Reactions: No Reported Reaction Date of Last Stent Placement:: 11-15-15 [place] [facility] [place] Past Psychological History: Anxiety, Panic Disorder Smoking Status: Former smoker Past Alcohol Use History: None Reported Past Drug Use History: None Reported - Past Family History Mother Family Medical History: Congestive Heart Failure (CHF) Father Family Medical History: Cancer Additional Family Medical History / Comment(s): TYPE OF CANCER NOT KNOWN General Exam - General Exam Comments Initial Comments: GENERAL: Patient is well-developed and well-nourished. Patient is nontoxic and well- hydrated and is in mild distress. ENT: Neck is soft and supple. No significant lymphadenopathy is noted. Oropharynx is clear. Moist mucous membranes. Neck has full range of motion without eliciting any pain. EYES: The sclera were anicteric and conjunctiva were pink and moist. Extraocular movements were intact and pupils were equal round and reactive to light. Eyelids were unremarkable. PULMONARY: Unlabored respirations. Good breath sounds bilaterally. No audible rales rho nchi or wheezing was noted. CARDIOVASCULAR: There is a regular rate and rhythm without any murmurs gallops or rubs. ABDOMEN: Soft and nontender with normal bowel sounds. SKIN: Skin is clear with no lesions or rashes and otherwise unremarkable. NEUROLOGIC: Patient is alert and oriented x3. Cranial nerves II through XII are grossly intact. Motor and sensory are also intact. Normal speech, volume and content. Symmetrical smile. MUSCULOSKELETAL: Normal extremities with adequate strength and full range of motion. No lower extremity swelling or edema. No calf tenderness. LYMPHATICS: No significant lymphadenopathy is noted PSYCHIATRIC: Normal psychiatric evaluation. Limitations: no limitations Course Vital Signs 10/18/22 10/18/22 10/18/22 17:56 18:10 19:55 Temperature 98.6 F 98.0 F Pulse Rate 81 79 86 Respiratory 24 24 20 Rate Blood Pressure 85/44 144/62 152/75 O2 Sat by Pulse 93 L 98 91 L Oximetry Medical Decision Making - Medical Decision Making EKG was interpreted by myself shows a sinus rhythm at 76 bpm MI interval 250 QRS is 94 Q-T intervals 3 3TC is 413 per patient's EKG shows no ST segment elevation or depression. Was pt. sent in by a medical professional or institution (, PA, [facility], urgent care, hospital, or residential...) When possible be specific @ -No Did you speak to anyone other than the patient for history (EMS, parent, family, police, friend...)? What history was obtained from this source @ -No Did you review nursing and triage notes (agree or disagree)? Why? @ -I reviewed and agree with nursing and triage notes Were old charts reviewed (outside hosp., previous admission, EMS record, old EKG, old radiological studies, urgent care reports/EKG's, residential records)? Report findings @ -I reviewed prior lab work in prior charts on this patient Differential Diagnosis (chest pain, altered mental status, abdominal pain women, abdominal pain men, vaginal bleeding, weakness, fever, dyspnea, syncope, headache, dizziness, GI bleed, back pain, seizure, CVA, palpatations, mental health, musculoskeletal)? @ -Differential Dyspnea: Coronary syndrome, arrhythmia, tamponade, asthma, COPD, pulmonary embolism, pneumonia, pneumothorax, pulmonary effusion, anaphylaxis, diabetic ketoacidosis, flailed chest, pulmonary contusion, diaphragmatic rupture, anemia, neuromuscular, this is not meant to be an all-inclusive list. EKG interpreted by me (3pts min.). @ -As above X-rays interpreted by me (1pt min.). @ -Chest x-ray is interpreted by myself no obvious acute abnormality. CT interpreted by me (1pt min.). @ -CT chest was interpreted by myself and there is pulmonary fibrosis no PE no garcía U/S interpreted by me (1pt. min.). @ -None done What testing was considered but not performed or refused? (CT, X-rays, U/S, labs)? Why? @ -None What meds were considered but not given or refused? Why? @ -None Did you discuss the management of the patient with other professionals (professionals i.e. , PA, [facility], lab, RT, psych nurse, social director, defence force senior officer, teacher, business enterprise officer, correctional case manager)? Give summary @ -I spoke with Dr. Garber he agreed to admit the patient minute the patient wrote admitting orders. Was smoking cessation discussed for >3mins.? @ -No Was critical care preformed (if so, how long)? @ -No Were there social determinants of health that impacted care today? How? (Homelessness, low income, unemployed, alcoholism, drug addiction, transportation, low edu. Level, literacy, decrease access to med. care, nursing home, rehab)? @ -No Was there de-escalation of care discussed even if they declined (Discuss DNR or withdrawal of care, Hospice)? DNR status @ -No What co-morbidities impacted this encounter? (DM, HTN, Smoking, COPD, CAD, Cancer, CVA, ARF, Chemo, Hep., AIDS, mental health diagnosis, sleep apnea, morbid obesity)? @ -None Was patient admitted / discharged? Hospital course, mention meds given and route, prescriptions, significant lab abnormalities, going to OR and other pertinent info. @ -Patient still short of breath and CAT scan looks like pulmonary fibrosis. Patient has hypomagnesemia. Patient is has some generalized weakness creatinine is elevated I spoke with Dr. Garber he agreed to admit the patient to the patient I consult pulmonary and nephrology. I placed the patient on steroids. Undiagnosed new problem with uncertain prognosis? @ -No Drug Therapy requiring intensive monitoring for toxicity (Heparin, Nitro, Insulin, Cardizem)? @ -No Were any procedures done? @ -No Diagnosis/symptom? @ -Pulmonary fibrosis Acute, or Chronic, or Acute on Chronic? @ -Acute on chronic Uncomplicated (without systemic symptoms) or Complicated (systemic symptoms)? @ -Complicated Side effects of treatment? @ -No Exacerbation, Progression, or Severe Exacerbation? @ -No Poses a threat to life or bodily function? How? (Chest pain, [place], NH, pneumonia, PE, COPD, DKA, ARF, appy, cholecystitis, CVA, Diverticulitis, Homicidal, Suicidal, threat to staff... and all critical care pts) @ -This could lead hypoxia and end organ dysfunction Diagnosis/symptom? @ -Hypomagnesemia Acute, or Chronic, or Acute on Chronic? @ -Acute Uncomplicated (without systemic symptoms) or Complicated (systemic symptoms)? @ -Complicated Side effects of treatment? @ -none Exacerbation, Progression, or Severe Exacerbation] @ -no Poses a threat to life or bodily function? @ -no Diagnosis/symptom? @ -Acute renal injury Acute, or Chronic, or Acute on Chronic? @ -Acute Uncomplicated (without systemic symptoms) or Complicated (systemic symptoms)? @ -Complicated Side effects of treatment? @ -none Exacerbation, Progression, or Severe Exacerbation] @ -no Poses a threat to life or bodily function? @ -no Diagnosis/symptom? @ -Generalized weakness Acute, or Chronic, or Acute on Chronic? @ -Acute Uncomplicated (without systemic symptoms) or Complicated (systemic symptoms)? @ -Uncomplicated Side effects of treatment? @ -none Exacerbation, Progression, or Severe Exacerbation] @ -no Poses a threat to life or bodily function? @ -no - Lab Data Result diagrams: 10/18/22 18:41 10/18/22 18:41 Lab Results 10/18/22 10/18/22 10/18/22 Range/Units 18:41 18:41 18:41 WBC 9.0 (3.8-10.6) k/uL RBC 4.20 (3.80-5.40) m/uL Hgb 13.6 D (11.4-16.0) gm/dL Hct 39.6 (34.0-46.0) % MCV 94.3 (80.0-100.0) fL MCH 32.4 (25.0-35.0) pg MCHC 34.4 (31.0-37.0) g/dL RDW 13.5 (11.5-15.5) % Plt Count 177 (150-450) k/uL MPV 7.2 Neutrophils % 95 % Lymphocytes % 2 % Monocytes % 1 % Eosinophils % 2 % Basophils % 0 % Neutrophils # 8.5 H (1.3-7.7) k/uL Lymphocytes # 0.2 L (1.0-4.8) k/uL Monocytes # 0.1 (0-1.0) k/uL Eosinophils # 0.2 (0-0.7) k/uL Basophils # 0.0 (0-0.2) k/uL PT 11.1 (9.0-12.0) sec INR 1.1 (<1.2) APTT 24.7 (22.0-30.0) sec D-Dimer 3.00 H (<0.60) mg/L FEU Sodium 134 L (137-145) mmol/L Potassium 3.2 L (3.5-5.1) mmol/L Chloride 99 (98-107) mmol/L Carbon Dioxide 25 (22-30) mmol/L Anion Gap 10 mmol/L BUN 17 (7-17) mg/dL Creatinine 1.78 H (0.52-1.04) mg/dL Est GFR (CKD-EPI)AfAm 34 (>60 ml/min/1.73 sqM) Est GFR (CKD-EPI)NonAf 29 (>60 ml/min/1.73 sqM) Glucose 115 H (74-99) mg/dL Plasma Lactic Acid Florian (0.7-2.0) mmol/L Calcium 8.3 L (8.4-10.2) mg/dL Magnesium 1.1 L (1.6-2.3) mg/dL Total Bilirubin 1.0 (0.2-1.3) mg/dL AST 48 H (14-36) U/L ALT 59 H (4-34) U/L Alkaline Phosphatase 130 H (38-126) U/L Troponin I (0.000-0.034) ng/mL Total Protein 6.8 (6.3-8.2) g/dL Albumin 3.8 (3.5-5.0) g/dL TSH 2.620 (0.465-4.680) mIU/L 10/18/22 10/18/22 Range/Units 18:41 18:41 WBC (3.8-10.6) k/uL RBC (3.80-5.40) m/uL Hgb (11.4-16.0) gm/dL Hct (34.0-46.0) % MCV (80.0-100.0) fL MCH (25.0-35.0) pg MCHC (31.0-37.0) g/dL RDW (11.5-15.5) % Plt Count (150-450) k/uL MPV Neutrophils % % Lymphocytes % % Monocytes % % Eosinophils % % Basophils % % Neutrophils # (1.3-7.7) k/uL Lymphocytes # (1.0-4.8) k/uL Monocytes # (0-1.0) k/uL Eosinophils # (0-0.7) k/uL Basophils # (0-0.2) k/uL PT (9.0-12.0) sec INR (<1.2) APTT (22.0-30.0) sec D-Dimer (<0.60) mg/L FEU Sodium (137-145) mmol/L Potassium (3.5-5.1) mmol/L Chloride (98-107) mmol/L Carbon Dioxide (22-30) mmol/L Anion Gap mmol/L BUN (7-17) mg/dL Creatinine (0.52-1.04) mg/dL Est GFR (CKD-EPI)AfAm (>60 ml/min/1.73 sqM) Est GFR (CKD-EPI)NonAf (>60 ml/min/1.73 sqM) Glucose (74-99) mg/dL Plasma Lactic Acid Florian 3.2 H* (0.7-2.0) mmol/L Calcium (8.4-10.2) mg/dL Magnesium (1.6-2.3) mg/dL Total Bilirubin (0.2-1.3) mg/dL AST (14-36) U/L ALT (4-34) U/L Alkaline Phosphatase (38-126) U/L Troponin I 0.023 (0.000-0.034) ng/mL Total Protein (6.3-8.2) g/dL Albumin (3.5-5.0) g/dL TSH (0.465-4.680) mIU/L Disposition Clinical Impression: Pulmonary fibrosis, Hypomagnesemia, Weakness Disposition: ADMITTED IP TO THIS HOSP Referrals: Gregorio Garber MD [Primary Care Provider] - 1-2 days Time of Disposition: 21:28
--- NOTE | 2022-10-18 18:59 | XR ---
EXAMINATION TYPE: XR chest 2V DATE OF EXAM: 10/18/2022 COMPARISON: 10/01/2022 HISTORY: Shortness of breath TECHNIQUE: Frontal and lateral views of the chest are obtained. FINDINGS: Scattered senescent parenchymal changes noted. Hyperinflation compatible with COPD. No evidence for infiltrate. No evidence for atelectasis. Prominence of the pulmonary interstitium may reflect a degree of fibrosis. Superimposed infiltrate is difficult to exclude. Correlate clinically. Heart size is stable. Mediastinal structures are stable and grossly unremarkable. No evidence for hilar prominence. Degenerative changes dorsal spine. IMPRESSION: 1. Prominence of the pulmonary interstitium may reflect a degree of fibrosis. Superimposed infiltrate is difficult to exclude. Correlate clinically.
[2022-10-18 19:12] LABS: Basophils % (A) 0 %; Eosinophils # (A) 0.2 k/uL (0-0.7); Eosinophils % (A) 2 %; HCT 39.6 % (34.0-46.0); Lymphocytes # (A) 0.2 k/uL (1.0-4.8); Lymphocytes % (A) 2 %; MCH 32.4 pg (25.0-35.0); MCHC 34.4 g/dL (31.0-37.0); MCV 94.3 fL (80.0-100.0); Mean Platelet Volume 7.2; Monocytes # (A) 0.1 k/uL (0-1.0); Monocytes % (A) 1 %; Neutrophils # (A) 8.5 k/uL (1.3-7.7); Neutrophils % (A) 95 %; Platelet Count 177 k/uL (150-450); RDW 13.5 % (11.5-15.5)
[2022-10-18 19:14] LABS: HGB 13.6 gm/dL (11.4-16.0); INR 1.1 (<1.2); Partial Thromboplastin Time 24.7 sec (22.0-30.0); Prothrombin Time 11.1 sec (9.0-12.0)
[2022-10-18] MEDS ORDERED: HYDROmorphone 0.5 MG/0.5 ML SYRINGE IVP STA (19:46)
[2022-10-18 19:53] LABS: Albumin 3.8 g/dL (3.5-5.0); Calcium 8.3 mg/dL (8.4-10.2); Magnesium 1.1 mg/dL (1.6-2.3); Total Protein 6.8 g/dL (6.3-8.2)
[2022-10-18] MEDS ORDERED: SODIUM CHLORIDE 0.9% 500 ML 500 ML IV ONE (20:04)
[2022-10-18 20:25] LABS: Potassium 3.2 mmol/L (3.5-5.1)
--- NOTE | 2022-10-18 20:46 | CT ---
EXAMINATION TYPE: CT chest angio for PE DATE OF EXAM: 10/18/2022 COMPARISON: None HISTORY: low BP, elevated d-dimer CT DLP: 435.1 mGycm Automated exposure control for dose reduction was used. CONTRAST: CT Chest for pulmonary embolism performed with with IV Contrast, patient injected with 80 mL of Isovu e 300. FINDINGS: Exam limited by motion artifact. There is severe limitation to the exam. LUNGS: There are emphysematous changes. There is a coarsened interstitium suggestive of chronic inter stitial lung disease correlate for pulmonary fibrosis. No pleural effusion. Subsegmental consolidatio n felt more typical of atelectasis than pneumonia. A calcified granuloma bilateral lower lobes. MEDIASTINUM: The heart is enlarged and there is coronary artery calcification. Assessment for pulmona ry embolism limited due to motion. Grossly no central pulmonary embolism. Mid and distal branches mar kedly limited for pulmonary embolism assessment and not excluded. No pathologic adenopathy. OTHER: Hypertrophic and degenerative changes of the spine. Deformity of the sternum on the sagittal images is most typical of motion artifact. There is a moderate compression superior endplate fracture of mid thoracic segment likely chronic. Liver low in attenuation correlate for hepatic steatosis. IMPRESSION: 1. Markedly limited exam due to motion artifact demonstrates cardiomegaly and findings suggestive of pulmonary fibrosis. Assessment for pulmonary embolism is markedly limited with no obvious central pu lmonary embolism. Remaining branches are markedly limited in assessment.
[2022-10-18] MEDS ORDERED: SODIUM CHLORIDE 0.9% 1,000 ML IV ONE (21:28)
[2022-10-18] MEDS: MAGNESIUM SULFATE-D5W PMX 1 GM in DEXTROSE/WATER 1 100ML.BAG IVPB SCH ×2 (21:32→22:38)
[2022-10-18] MEDS ORDERED: methylPREDNISolone SOD SUCCI 125 MG/2 ML VIAL IV STA (21:32)
[2022-10-18 21:54] LABS: Appearance,Urine Cloudy (Clear); Bacteria,Urine Rare /hpf; Bilirubin,Urine Negative (Negative); Blood,Urine Negative (Negative); Cellular Casts,Urine 4 /lpf (0); Color,Urine Yellow; Glucose,Urine (UA) Negative (Negative); Granular Casts,Urine 7 /lpf (0); Hyaline Casts,Urine 1 /lpf (0-2); Ketones,Urine Negative (Negative); Leukocyte Esterase,Urine Moderate (Negative); Mucus,Urine Rare /hpf; Nitrite,Urine Negative (Negative); PH, Urine 5.5 (5.0-8.0); Protein,Urine 1+ (Negative); RBC,Urine 10 /hpf (0-5); Specific Gravity,Urine 1.036 (1.001-1.035); Squamous Epithelial Cell,Urine 4 /hpf (0-4); Urobilinogen,Urine <2.0 mg/dL (<2.0); WBC,Urine 52 /hpf (0-5)
[2022-10-19] MEDS: methylPREDNISolone SOD SUCCI 125 MG/2 ML VIAL IV SCH ×2 (01:54→05:31)
[2022-10-19] MEDS: ACETAMINOPHEN TAB 325 MG TAB PO PRN ×2 (01:54→10:22)
[2022-10-19] MEDS ORDERED: ALBUTEROL NEBULIZED 2.5 MG/3 ML INHALATION PRN (06:54)
[2022-10-19] MEDS ORDERED: NITROGLYCERIN SL TABS 0.4 MG TAB SUBLINGUAL PRN (06:54)
[2022-10-19] MEDS ORDERED: Potassium Replacement Protocol 1 EACH MISC MISCELLANE PRN (07:11)
[2022-10-19] MEDS ORDERED: Magnesium Replacement Protocol 1 EACH MISC MISCELLANE PRN (07:11)
[2022-10-19] MEDS ORDERED: metFORMIN 500 MG TAB PO SCH (07:30)
[2022-10-19] MEDS: ASPIRIN 81 MG PO SCH (08:07)
[2022-10-19] MEDS: MULTIVITAMINS, THERA 1 EACH TAB PO SCH (08:08)
[2022-10-19] MEDS: clonazePAM 1 MG TAB PO SCH ×3 (08:08→22:50)
[2022-10-19] MEDS: PANTOPRAZOLE 40 MG TABLET PO SCH ×2 (08:08→16:50)
[2022-10-19] MEDS: atenoloL 50 MG TAB PO SCH (08:08)
[2022-10-19] MEDS: SERTRALINE 100 MG TAB PO SCH (08:09)
[2022-10-19] MEDS: CLOPIDOGREL 75 MG TAB PO SCH (08:09)
[2022-10-19] MEDS: methylPREDNISolone SOD SUCCI 40 MG/ML 1 ML VIAL IV SCH ×2 (08:09→15:16)
[2022-10-19] MEDS ORDERED: ATORVASTATIN 80 MG TAB PO SCH (09:00)
[2022-10-19] MEDS: BUDESONIDE 0.5 MG/2 ML NEBU INHALATION SCH ×2 (09:05→20:01)
[2022-10-19] MEDS: IPRATROPIUM-ALBUTEROL 3 ML NEB INHALATION SCH ×4 (09:05→20:00)
[2022-10-19 10:47] LABS: HGB 12.1 g/dL (12.0-15.0); MCH 31.9 pg (27.0-32.0); MCHC 32.7 g/dL (32.0-37.0); MCV 97.6 fL (80.0-97.0); NRBC Per 100 WBC 0 /100 WBCS (0.0-0.0); Platelet Count 149 X 10*3/uL (140-440); RBC 3.79 X 10*6/uL (4.10-5.20); RDW 14.2 % (11.5-14.5); WBC 9.78 X 10*3/uL (4.50-10.00)
[2022-10-19 11:15] LABS: African American GFR (CKD) 28.5 (60.0-200.0); Albumin 3.2 g/dL (3.8-4.9); Albumin/Globulin Ratio 1.48 (1.60-3.17); Anion Gap 13.9 mmol/L (10.00-18.00); BUN/Creat Ratio 11.57 Ratio (12.00-20.00); Blood Urea Nitrogen 23.6 mg/dL (9.0-27.0); Calcium 7.5 mg/dL (8.7-10.3); Carbon Dioxide 22.5 mmol/L (20.0-27.5); Globulin 2.1 g/dL (1.6-3.3); Magnesium 2.1 mg/dL (1.5-2.4); Non-African American GFR(CKD) 24.6 (60.0-200.0); Potassium 3.6 mmol/L (3.5-5.5); Total Bilirubin 0.5 mg/dL (0.30-1.20); Total Protein 5.3 g/dL (6.2-8.2)
[2022-10-19 11:19] LABS: Glucose,Whole Blood 243 mg/dL (70-110)
[2022-10-19 11:21] LABS: Basophils # (A) 0.01 X 10*3/uL (0.00-0.10); Basophils % (A) 0.1 %; Eosinophils # (A) 0 X 10*3/uL (0.04-0.35); Eosinophils % (A) 0 %; Immature Grans, Automated 0.5 %; Lymphocytes # (A) 0.09 X 10*3/uL (0.90-5.00); Lymphocytes % (A) 0.9 %; Monocytes # (A) 0.12 X 10*3/uL (0.20-1.00); Monocytes % (A) 1.2 %; Neutrophils # (A) 9.51 X 10*3/uL (1.80-7.70); Neutrophils % (A) 97.3 %
--- NOTE | 2022-10-19 11:53 | P.NPCON ---
History of Present Illness - Reason for Consult acute renal failure - History of Present Illness Patient is a 66-year-old female who was admitted to the hospital with complaints of increased weakness. Patient stated that she was noted to have a low blood pressure at home with systolic in the 80s and was therefore referred to the emergency room by PCP. No previous history of kidney diseases No significant urinary symptoms No recent use of NSAIDs No SHARONDA inhibitor as noted on med list. Serum creatinine was 1.78 yesterday and increased to 2.0 today. Previous creatinine was 0.9 on 10/01/2022. Blood pressure has been low with systolic at 85 mmHg on initial admission. Patient has chest CTA yesterday to rule out PE. Voiding on her own Review of Systems As per HPI Past Medical History Past Medical History: Coronary Artery Disease (CAD), COPD, Deep Vein Thrombosis (DVT), Fibromyalgia, GERD/Reflux, Hyperlipidemia, Hypertension, Osteoarthritis (OA), Skin Disorder Additional Past Medical History / Comment(s): DIVERTICULITIS, HX KIDNEY STONE- still has it but it's never moved , Pneumonia, ROSACEA, DVT RLE 2007,gerson cataracts, BILAT ILIAC ARTERIES BLOCKED PER PT, pulmonary fibrosis History of Any Multi-Drug Resistant Organisms: None Reported Past Surgical History: Appendectomy, Bowel Resection, Heart Catheterization With Stent, Hernia Repair, Tubal Ligation Additional Past Surgical History / Comment(s): COLONOSCOPY, PARTIAL LT L OBECTOMY-(pt stated they thought i might of had tb but it was just scar tissue), D & C, 07-17-14 BOWEL RESECTION[place] [facility] [place] 12-18-17 lap robotic assisted repair of inc hernia Past Anesthesia/Blood Transfusion Reactions: No Reported Reaction Date of Last Stent Placement[place] [facility] [place] Psychological History: Anxiety, Panic Disorder Additional Psychological History / Comment(s): PT IS INDEPENDANT-drives,LIVES WITH SPOUSE and 2 pet cats. has 3 adult children and 10 grandchildren. 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 Smoking Status: Former smoker Past Alcohol Use History: None Reported Additional Past Alcohol Use History / Comment(s): smoked since age 13 1ppd; QUIT 2008 Past Drug Use History: None Reported - Past Family History Mother Family Medical History: Congestive Heart Failure (CHF) Father Family Medical History: Cancer Additional Family Medical History / Comment(s): TYPE OF CANCER NOT KNOWN Medications and Allergies Home Medications Medication Instructions Recorded Confirmed Type clonazePAM [Clonazepam] 1 mg PO TID 02/20/14 10/18/22 History HYDROcodone/APAP 7.5-325MG [[place] 1 tab PO DAILY PRN 09/14/16 10/18/22 History 7.5-325] Rosuvastatin Calcium [Crestor] 40 mg PO DAILY 01/10/17 10/18/22 History Aspirin EC [Ecotrin Low Dose] 81 mg PO DAILY 01/27/20 10/18/22 History Clopidogrel Bisulfate [Plavix] 75 mg PO DAILY #90 tab 04/15/20 10/18/22 Rx metFORMIN HCL 500 mg PO DAILY 09/22/21 10/18/22 History Multivit-Min/Iron/Folic/Lutein 1 tab PO DAILY 06/28/22 10/18/22 History [Centrum Silver Women Tablet] Sertraline [Zoloft] 100 mg PO DAILY 06/28/22 10/18/22 History amLODIPine [Norvasc] 5 mg PO HS 06/28/22 10/18/22 History atenoloL [Tenormin] 50 mg PO DAILY 06/28/22 10/18/22 History Albuterol Sulfate [Albuterol 2 puff INHALATION RT-Q6H PRN 10/01/22 10/18/22 History Sulfate Hfa] Acetaminophen Tab [Tylenol] 650 mg PO Q6HR PRN tab 10/05/22 10/18/22 Rx Budesonide [Pulmicort] 0.5 mg INHALATION RT-BID 90 Days 10/05/22 10/18/22 Rx #180 ml Ipratropium-Albuterol Nebulize 3 ml INHALATION RT-QID 30 Days 10/05/22 10/18/22 Rx [Duoneb 0.5 mg-3 mg/3 ml Soln] #120 each Nitroglycerin Sl Tabs [Nitrostat] 0.4 mg SUBLINGUAL Q5M PRN tab 10/05/22 Rx Pantoprazole [Protonix] 40 mg PO AC-BID 90 Days #180 tab 10/05/22 10/18/22 Rx hydrALAZINE HCL [Apresoline] 100 mg PO BID 10/18/22 10/18/22 History Allergies Allergy/AdvReac Type Severity Reaction Status Date / Time hydrocodone bitartrate AdvReac Nausea & Verified 10/18/22 19:37 [From Vicodin] Vomiting propoxyphene napsylate AdvReac Nausea & Verified 10/18/22 19:37 [From Darvocet-N 100] Vomiting Physical Exam Vitals: Vital Signs Temp Pulse Pulse Resp BP BP Pulse Ox 10/19/22 09:21 90 20 10/19/22 09:05 88 20 94 L 10/19/22 07:28 97.6 F 65 18 107/61 95 10/19/22 01:21 99.2 F 65 17 100/57 98 10/19/22 01:15 17 10/19/22 00:41 70 18 104/50 97 10/18/22 22:43 85 24 98/60 95 10/18/22 21:00 78 20 148/68 98 10/18/22 20:00 68 16 148/62 96 10/18/22 19:55 98.0 F 86 20 152/75 91 L 10/18/22 18:45 24 10/18/22 18:10 79 24 144/62 98 10/18/22 17:56 98.6 F 81 24 85/44 93 L Intake and Output 10/18/22 10/19/22 10/19/22 22:59 06:59 14:59 Other: Voiding Method Toilet # Voids 1 1 Weight 77.111 kg 77.111 kg Patient is awake, comfortable, not in acute distress Examination of the heart S1 and S2 Examination of the lungs shows decreased breath sounds at the bases no crackles or wheezing heard Abdomen is soft nontender obese Examination of the lower extremity shows no significant edema 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 Acute kidney injury secondary to hypotension, ischemic ATN, rule out urine retention. UA shows 1+ protein, no blood and WBCs 52 2. Hypotension, possibly volume depletion. Check random cortisol level 3. Pyuria rule out UTI 4. Type 2 diabetes maintained on metformin Plan: Add gentle IV hydration Hold metformin for now Hold Norvasc Add parameters to Tenormin Check random cortisol level Check urine culture Check post void bladder scan Check ultrasound of the kidneys Thank you for the consultation. We will continue to follow the patient with you during her hospitalization.
[2022-10-19] MEDS: SODIUM CHLORIDE 0.9% 1,000 ML IV SCH (13:58)
--- NOTE | 2022-10-19 15:06 | US ---
EXAMINATION TYPE: US kidneys/renal and bladder DATE OF EXAM: 10/19/2022 COMPARISON: NONE CLINICAL HISTORY: YUMIKO. YUMIKO EXAM MEASUREMENTS: Right Kidney: 10.0 x 4.3 x 4.3 cm Left Kidney: 11.1 x 4.4 x 3.4 cm Right Kidney: No hydronephrosis or masses seen Left Kidney: No hydronephrosis or masses seen Bladder: Anechoic but limited by incomplete distention Bilateral Jets seen: No There is no evidence for hydronephrosis at this point in time. No nephrolithiasis is seen. No sara s are identified. The urinary bladder is anechoic. Bilateral ureteral jets are seen. IMPRESSION: No hydronephrosis or nephrolithiasis.
[2022-10-19 16:30] LABS: Glucose,Whole Blood 187 mg/dL (70-110)
[2022-10-19 20:25] LABS: Glucose,Whole Blood 273 mg/dL (70-110)
--- NOTE | 2022-10-19 20:25 | HP ---
HISTORY AND PHYSICAL HISTORY OF PRESENT ILLNESS: This is a 66-year-old white female. She came to the emergency room due to her breathing got worse and she had severe pain in both bilateral thighs in the morning. She is not getting any better. She is unable to hold her legs up due to severe pain between her hips and her knees. Does not have chest strength anymore to get around. Blood pressure at home was low systolic at 85. Denies any fever or chills, weakness in her upper thighs. She had severe low magnesium, which has been bolused in the emergency room. HOME MEDICINES: See list. They were reviewed. ALLERGIES: Hydrocodone, propoxyphene. REVIEW OF SYSTEMS: A 14-point review of systems otherwise negative except for severe right upper leg weakness in bilateral legs, cough, congestion, shortness of breath. PAST MEDICAL HISTORY: Coronary artery disease, COPD, fibromyalgia, GERD, dyslipidemia, hypertension, osteoarthritis, skin disorder, rosacea, cataracts, diverticulitis, history of kidney stone, PAD in the legs and iliac arteries. PAST SURGICAL HISTORY: She had prior left lobectomy, bowel resection, heart catheterization with stents. SOCIAL HISTORY: Anxiety, panic, former smoker. She has been smoking for many, many years. Secondhand smoker in the house, possibly mold in her house, her house is being cleaned at this time. PAST FAMILY MEDICAL HISTORY: Mother, heart failure. Father cancer. PHYSICAL EXAMINATION: GENERAL: Well developed and well nourished, nontoxic appearance. VITAL SIGNS: Temperature 98.6, pulse 80s, respiratory rate 20 to 24, blood pressure is 140 to 150s, O2 93 to 91. SKIN: Dry skin turgor, dry mucous membranes. ENT: Moist mucous membranes. Pupils equal, round, reactive. LUNGS: Scattered rhonchi x4. HEART: S1, S2. ABDOMEN: Soft. PSYCH: Fair mood and affect. EKG shows sinus rhythm. IMPRESSION: 1. Pulmonary fibrosis. 2. COPD exacerbation. 3. Severe hypomagnesemia. 4. Diastolic heart failure. 5. Hypothyroidism. 6. chronic obstructive pulmonary disease, possible environmental toxins at home. Elevated D-dimer, high BUN, creatinine 1.78 and BUN is 17. Glucose 115, calcium is low at 8.3. She has hypomagnesemia, leg weakness, pulmonary fibrosis, IV steroids. Replace magnesium, PT, OT, Pulmonary and Cardiology consult, please see further orders. MMODL / IJN: [id number] /
[2022-10-19] MEDS ORDERED: amLODIPine 5 MG TAB PO SCH (21:00)
--- NOTE | 2022-10-19 22:18 | CT ---
EXAMINATION TYPE: CT lumbar spine wo con DATE OF EXAM: 10/19/2022 9:35 PM COMPARISON: None HISTORY: lower back pain Technique: Unenhanced CT of the lumbar spine was performed. Bone and soft tissue window settings are submitted as well as coronal and sagittal reconstructions. Automated exposure control for dose reduc tion was used. CT DLP: 1316.6 mGycm Findings: There is no fracture or malalignment. The morphology of the vertebral segments are intact. There are no focal skeletal lesions, and no paraspinal soft tissue findings. There are multilevel relatively mild degenerative disc changes, but moderate in degree at the L2-3 le baldemar. There are only mild bilateral degenerative facet changes at L4-5 and L5-S1. There is no focal epidural defect to suggest disc extrusion/protrusion. No central canal or lateral recess or neural foraminal stenosis. IMPRESSION: No acute process.
[2022-10-19] MEDS: INSULIN ASPART (NovoLOG) 100 UNIT/ML VIAL SQ SCH (22:49)
[2022-10-19] MEDS: MAGNESIUM OXIDE 400 MG TAB PO SCH (22:50)
[2022-10-20] MEDS: methylPREDNISolone SOD SUCCI 40 MG/ML 1 ML VIAL IV SCH ×2 (00:30→09:28)
[2022-10-20] MEDS: SODIUM CHLORIDE 0.9% 1,000 ML IV SCH ×2 (05:07→12:13)
[2022-10-20 06:42] LABS: Glucose,Whole Blood 215 mg/dL (70-110)
[2022-10-20] MEDS: PANTOPRAZOLE 40 MG TABLET PO SCH ×2 (06:51→16:52)
[2022-10-20] MEDS: INSULIN ASPART (NovoLOG) 100 UNIT/ML VIAL SQ SCH ×4 (06:51→21:16)
[2022-10-20] MEDS: ACETAMINOPHEN TAB 325 MG TAB PO PRN ×2 (06:51→21:17)
[2022-10-20] MEDS: BUDESONIDE 0.5 MG/2 ML NEBU INHALATION SCH (07:56)
[2022-10-20] MEDS: IPRATROPIUM-ALBUTEROL 3 ML NEB INHALATION SCH ×4 (07:56→20:43)
[2022-10-20] MEDS ORDERED: IPRATROPIUM-ALBUTEROL 3 ML NEB INHALATION PRN (09:24)
[2022-10-20] MEDS: MAGNESIUM OXIDE 400 MG TAB PO SCH ×2 (10:07→21:16)
[2022-10-20] MEDS: MULTIVITAMINS, THERA 1 EACH TAB PO SCH (10:07)
[2022-10-20] MEDS: clonazePAM 1 MG TAB PO SCH ×3 (10:07→21:16)
[2022-10-20] MEDS: CLOPIDOGREL 75 MG TAB PO SCH (10:07)
[2022-10-20] MEDS: SERTRALINE 100 MG TAB PO SCH (10:07)
[2022-10-20] MEDS: ASPIRIN 81 MG PO SCH (10:08)
[2022-10-20] MEDS: atenoloL 50 MG TAB PO SCH (10:08)
--- NOTE | 2022-10-20 10:42 | P.PN ---
Subjective Patient is seen for follow-up for acute kidney injury mostly associated with low blood pressure. Patient also had CTA on 10/18/2022. Labs are pending from today. Patient reports good urine output. Maintained on IV fluids. Also being treated for COPD exacerbation. Objective - Vital Signs Vital signs: Vital Signs Temp 97.7 F 10/20/22 07:08 Pulse 80 10/20/22 07:08 Resp 18 10/20/22 07:08 BP 146/69 10/20/22 07:08 Pulse Ox 96 10/20/22 07:57 FiO2 Intake & Output 10/19/22 10/20/22 10/20/22 18:59 06:59 18:59 Output Total 88 Balance -88 Output: Post Void Residual 88 Other: Voiding Method Toilet Toilet # Voids 3 3 - Exam Patient is awake, comfortable, in no acute distress Examination of the heart S1 and S2 Examination of the lungs bilateral breath sounds are heard, occasional wheezing Abdomen is soft nontender Examination lower extremity shows no evidence of edema IT RISK ANALYST exam grossly intact - Labs CBC & Chem 7: 10/19/22 07:16 10/19/22 07:16 Labs: Abnormal Lab Results - Last 24 Hours (Table) 10/19/22 10/19/22 10/19/22 Range/Units 07:16 07:16 07:16 RBC 3.79 L (4.10-5.20) X 10*6/uL Hct 37.0 L (37.2-46.3) % MCV 97.6 H (80.0-97.0) fL Immature Gran # 0.05 H (0.00-0.04) X 10*3/uL Neutrophils # 9.51 H (1.80-7.70) X 10*3/uL Lymphocytes # 0.09 L (0.90-5.00) X 10*3/uL Monocytes # 0.12 L (0.20-1.00) X 10*3/uL Eosinophils # 0 L (0.04-0.35) X 10*3/uL Creatinine 2.0 H (0.6-1.5) mg/dL Est GFR (CKD-EPI)AfAm 28.5 L (60.0-200.0) Est GFR (CKD-EPI)NonAf 24.6 L (60.0-200.0) BUN/Creatinine Ratio 11.57 L (12.00-20.00) Ratio Glucose 221 H (70-110) mg/dL POC Glucose (mg/dL) (70-110) mg/dL Calcium 7.5 L (8.7-10.3) mg/dL ALT 54 H (8-44) U/L Total Protein 5.3 L (6.2-8.2) g/dL Albumin 3.2 L (3.8-4.9) g/dL Albumin/Globulin Ratio 1.48 L (1.60-3.17) g/dL Cortisol 42.0 H (3.1-22.4) ug/dL 10/19/22 10/19/22 10/19/22 Range/Units 11:18 16:29 20:24 RBC (4.10-5.20) X 10*6/uL Hct (37.2-46.3) % MCV (80.0-97.0) fL Immature Gran # (0.00-0.04) X 10*3/uL Neutrophils # (1.80-7.70) X 10*3/uL Lymphocytes # (0.90-5.00) X 10*3/uL Monocytes # (0.20-1.00) X 10*3/uL Eosinophils # (0.04-0.35) X 10*3/uL Creatinine (0.6-1.5) mg/dL Est GFR (CKD-EPI)AfAm (60.0-200.0) Est GFR (CKD-EPI)NonAf (60.0-200.0) BUN/Creatinine Ratio (12.00-20.00) Ratio Glucose (70-110) mg/dL POC Glucose (mg/dL) 243 H 187 H 273 H (70-110) mg/dL Calcium (8.7-10.3) mg/dL ALT (8-44) U/L Total Protein (6.2-8.2) g/dL Albumin (3.8-4.9) g/dL Albumin/Globulin Ratio (1.60-3.17) g/dL Cortisol (3.1-22.4) ug/dL 10/20/22 Range/Units 06:40 RBC (4.10-5.20) X 10*6/uL Hct (37.2-46.3) % MCV (80.0-97.0) fL Immature Gran # (0.00-0.04) X 10*3/uL Neutrophils # (1.80-7.70) X 10*3/uL Lymphocytes # (0.90-5.00) X 10*3/uL Monocytes # (0.20-1.00) X 10*3/uL Eosinophils # (0.04-0.35) X 10*3/uL Creatinine (0.6-1.5) mg/dL Est GFR (CKD-EPI)AfAm (60.0-200.0) Est GFR (CKD-EPI)NonAf (60.0-200.0) BUN/Creatinine Ratio (12.00-20.00) Ratio Glucose (70-110) mg/dL POC Glucose (mg/dL) 215 H (70-110) mg/dL Calcium (8.7-10.3) mg/dL ALT (8-44) U/L Total Protein (6.2-8.2) g/dL Albumin (3.8-4.9) g/dL Albumin/Globulin Ratio (1.60-3.17) g/dL Cortisol (3.1-22.4) ug/dL Microbiology - Last 24 Hours (Table) 10/19/22 14:00 Urine Culture - Preliminary Urine,Clean Catch Assessment and Plan Assessment: 1. Acute kidney injury secondary to hypotension, ischemic ATN, rule out urine retention. UA shows 1+ protein, no blood and WBCs 52. Ultrasound shows no hydronephrosis 2. Hypotension, possibly volume depletion. Cortisol level was 42. Blood pressure has improved 3. Pyuria rule out UTI 4. Type 2 diabetes maintained on metformin Plan: Continue with IV fluids Check post void residual Check labs today and then again in a.m.
--- NOTE | 2022-10-20 11:07 | US ---
EXAMINATION TYPE: US venous doppler duplex LE DATE OF EXAM: 10/20/2022 10:46 AM COMPARISON: NONE CLINICAL HISTORY: hx dvt leg swelling. edema SIDE PERFORMED: Bilateral TECHNIQUE: The lower extremity deep venous system is examined utilizing real time linear array sonog peggy with graded compression, doppler sonography and color-flow sonography. VESSELS IMAGED: Common Femoral Vein Deep Femoral Vein Greater Saphenous Vein * Femoral Vein Popliteal Vein Small Saphenous Vein * Proximal Calf Veins (* superficial vessels) Right Leg: Negative for DVT Left Leg: Negative for DVT IMPRESSION: Grayscale, color doppler, spectral doppler imaging performed of the deep veins of the lo wer extremities. There is normal flow, compressibility, vascular waveforms.
[2022-10-20 11:18] LABS: Basophils # (A) 0.01 X 10*3/uL (0.00-0.10); Basophils % (A) 0.1 %; Eosinophils # (A) 0 X 10*3/uL (0.04-0.35); Eosinophils % (A) 0 %; HCT 33.3 % (37.2-46.3); HGB 11.4 g/dL (12.0-15.0); Immature Grans, Automated 0.9 %; Lymphocytes # (A) 0.28 X 10*3/uL (0.90-5.00); MCH 32.1 pg (27.0-32.0); MCHC 34.2 g/dL (32.0-37.0); MCV 93.8 fL (80.0-97.0); Mean Platelet Volume 10.1 fL (9.5-12.2); Monocytes # (A) 0.35 X 10*3/uL (0.20-1.00); Monocytes % (A) 3.8 %; NRBC Per 100 WBC 0 /100 WBCS (0.0-0.0); Neutrophils % (A) 92.2 %; Platelet Count 171 X 10*3/uL (140-440); RBC 3.55 X 10*6/uL (4.10-5.20); RDW 13.7 % (11.5-14.5); WBC 9.22 X 10*3/uL (4.50-10.00)
[2022-10-20 11:25] LABS: African American GFR (CKD) 44.2 (60.0-200.0); Albumin 3.3 g/dL (3.8-4.9); Albumin/Globulin Ratio 1.48 (1.60-3.17); Anion Gap 12.3 mmol/L (10.00-18.00); BUN/Creat Ratio 21.41 Ratio (12.00-20.00); Blood Urea Nitrogen 30.4 mg/dL (9.0-27.0); Calcium 8.2 mg/dL (8.7-10.3); Carbon Dioxide 20.4 mmol/L (20.0-27.5); Globulin 2.2 g/dL (1.6-3.3); Non-African American GFR(CKD) 38.1 (60.0-200.0); Potassium 3.5 mmol/L (3.5-5.5); Total Bilirubin 0.3 mg/dL (0.30-1.20); Total Protein 5.5 g/dL (6.2-8.2)
[2022-10-20 11:40] LABS: Glucose,Whole Blood 338 mg/dL (70-110)
[2022-10-20] MEDS: methylPREDNISolone SOD SUCCI 125 MG/2 ML VIAL IV SCH ×2 (12:12→18:05)
--- NOTE | 2022-10-20 12:34 | P.CNOR ---
History of Present Illness - [facility] Consult date: 10/20/22 Requesting physician: Gregorio Garber Consult reason: low back pain History of present illness: Patient is a very pleasant 66-year-old female who is seen and examined at bedside for further evaluation of her lumbar spine. She presented to the emergency department for further evaluation after she states she has been feeling generally weaker over the past 2 weeks. She's had difficulty regular activities of daily living. She feels unsteady on her feet due to her weakness. She does admit to chronic low back pain most significant over the right paraspinals and also across her lumbosacral junction. She is not experiencing specific lower extremity weakness or radiculopathy bilaterally. She admits to difficulty prolonged activities with her lower extremities. She follows with her primary care provider, Dr. Gregorio Garber, in the outpatient setting. She states she has had some injections for pain at his office. She is currently on hydrocodone as prescribed for pain control but states she does not take this medication frequently. She has not had formal physical therapy or consultation with pain management in regards to her lumbar spine. She would be willing to work to these treatment modalities. Currently, during her presentation to the emergency department, she was found to have acute kidney injury, urinary tract infection, and hypotension. She has had difficulty controlling her blood pressure during her admission. See is also being evaluated for COPD exacerbation. She underwent ultrasound Doppler bilateral lower extremities today which was negative for DVT. She is admitted to medicine. Her other medical diagnoses include coronary artery disease, diabetes mellitus, COPD, history of DVT, hyperlipidemia, and hypertension. Consultation has also been placed with pulmonology. She does admit to difficulty with her lungs. Past Medical History Past Medical History: Coronary Artery Disease (CAD), COPD, Deep Vein Thrombosis (DVT), Fibromyalgia, GERD/Reflux, Hyperlipidemia, Hypertension, Osteoarthritis (OA), Skin Disorder Additional Past Medical History / Comment(s): DIVERTICULITIS, HX KIDNEY STONE- still has it but it's never moved , Pneumonia, ROSACEA, DVT RLE 2007,gerson cataracts, BILAT ILIAC ARTERIES BLOCKED PER PT, pulmonary fibrosis History of Any Multi-Drug Resistant Organisms: None Reported Past Surgical History: Appendectomy, Bowel Resection, Heart Catheterization With Stent, Hernia Repair, Tubal Ligation Additional Past Surgical History / Comment(s): COLONOSCOPY, PARTIAL LT LOB ECTOMY-(pt stated they thought i might of had tb but it was just scar tissue), D & C, 07-17-14 BOWEL RESECTION, [place] [facility] [place] , 12-18-17 lap robotic assisted repair of inc hernia Past Anesthesia/Blood Transfusion Reactions: No Reported Reaction Date of Last St[place] Pl[place]:: [place] [facility] [place] Psychological History: Anxiety, Panic Disorder Additional Psychological History / Comment(s): PT IS INDEPENDANT-drives,LIVES WITH SPOUSE and 2 pet cats. has 3 adult children and 10 grandchildren. 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 Smoking Status: Former smoker Past Alcohol Use History: None Reported Additional Past Alcohol Use History / Comment(s): smoked since age 13 1ppd; QUIT 2008 Past Drug Use History: None Reported - Past Family History Mother Family Medical History: Congestive Heart Failure (CHF) Father Family Medical History: Cancer Additional Family Medical History / Comment(s): TYPE OF CANCER NOT KNOWN Medications and Allergies Home Medications Medication Instructions Recorded Confirmed Type clonazePAM [Clonazepam] 1 mg PO TID 02/20/14 10/18/22 History HYDROcodone/APAP 7.5-325MG [[place] 1 tab PO DAILY PRN 09/14/16 10/18/22 History 7.5-325] Rosuvastatin Calcium [Crestor] 40 mg PO DAILY 01/10/17 10/18/22 History Aspirin EC [Ecotrin Low Dose] 81 mg PO DAILY 01/27/20 10/18/22 History Clopidogrel Bisulfate [Plavix] 75 mg PO DAILY #90 tab 04/15/20 10/18/22 Rx metFORMIN HCL 500 mg PO DAILY 09/22/21 10/18/22 History Multivit-Min/Iron/Folic/Lutein 1 tab PO DAILY 06/28/22 10/18/22 History [Centrum Silver Women Tablet] Sertraline [Zoloft] 100 mg PO DAILY 06/28/22 10/18/22 History amLODIPine [Norvasc] 5 mg PO HS 06/28/22 10/18/22 History atenoloL [Tenormin] 50 mg PO DAILY 06/28/22 10/18/22 History Albuterol Sulfate [Albuterol 2 puff INHALATION RT-Q6H PRN 10/01/22 10/18/22 History Sulfate Hfa] Acetaminophen Tab [Tylenol] 650 mg PO Q6HR PRN tab 10/05/22 10/18/22 Rx Budesonide [Pulmicort] 0.5 mg INHALATION RT-BID 90 Days 10/05/22 10/18/22 Rx #180 ml Ipratropium-Albuterol Nebulize 3 ml INHALATION RT-QID 30 Days 10/05/22 10/18/22 Rx [Duoneb 0.5 mg-3 mg/3 ml Soln] #120 each Nitroglycerin Sl Tabs [Nitrostat] 0.4 mg SUBLINGUAL Q5M PRN tab 10/05/22 10/18/22 Rx Pantoprazole [Protonix] 40 mg PO AC-BID 90 Days #180 tab 10/05/22 10/18/22 Rx hydrALAZINE HCL [Apresoline] 100 mg PO BID 10/18/22 10/18/22 History Allergies Allergy/AdvReac Type Severity Reaction Status Date / Time hydrocodone bitartrate AdvReac Nausea & Verified 10/18/22 19:37 [From Vicodin] Vomiting propoxyphene napsylate AdvReac Nausea & Verified 10/18/22 19:37 [From Darvocet-N 100] Vomiting Physical Examination Osteopathic Statement: *. No significant issues noted on an osteopathic structural exam other than those noted in the History and Physical/Consult. Physical exam: Patient is awake, alert, and oriented 3 Vital signs stable Adequate chest excursion with deep inspiration and expiration Examination of lumbar spine reveals skin is intact with no abrasions, lace rations, or bruises; no erythema, purulence or signs of infection Mild pain with palpation over the right lumbar paraspinal muscles over the midline at the lumbosacral junction Dorsiflexion, plantarflexion, and extensor hallucis longus positive sustained bilaterally Lower extremity strength 5/5 bilaterally Straight leg test negative bilateral lower extremities No signs or symptoms of DVT; no calf pain No pain with internal and external rotation of the hips bilaterally Neurovascularly intact Results Pertinent studies: CT of the lumbar spine taken on 10/19/2022: Overall alignment is adequately maintained; L1-2 significant degenerative disc disease with anterior osteophytic spurring and slight lateral listhesis; no vertebral body compression fracture; slight degenerative scoliosis; there may be some spinal canal narrowing at L1-2 but no obvious herniated nucleus pulposus or stenosis - Labs Labs: Abnormal Lab Results - Last 24 Hours (Table) 10/19/22 10/19/22 10/19/22 Range/Units 07:16 16:29 20:24 RBC (4.10-5.20) X 10*6/uL Hgb (12.0-15.0) g/dL Hct (37.2-46.3) % MCH (27.0-32.0) pg Immature Gran # (0.00-0.04) X 10*3/uL Neutrophils # (1.80-7.70) X 10*3/uL Lymphocytes # (0.90-5.00) X 10*3/uL Eosinophils # (0.04-0.35) X 10*3/uL BUN (9.0-27.0) mg/dL Est GFR (CKD-EPI)AfAm (60.0-200.0) Est GFR (CKD-EPI)NonAf (60.0-200.0) BUN/Creatinine Ratio (12.00-20.00) Ratio Glucose (70-110) mg/dL POC Glucose (mg/dL) 187 H 273 H (70-110) mg/dL Calcium (8.7-10.3) mg/dL ALT (8-44) U/L Total Protein (6.2-8.2) g/dL Albumin (3.8-4.9) g/dL Albumin/Globulin Ratio (1.60-3.17) g/dL Cortisol 42.0 H (3.1-22.4) ug/dL 10/20/22 10/20/22 10/20/22 Range/Units 06:40 06:54 06:54 RBC 3.55 L (4.10-5.20) X 10*6/uL Hgb 11.4 L (12.0-15.0) g/dL Hct 33.3 L (37.2-46.3) % MCH 32.1 H (27.0-32.0) pg Immature Gran # 0.08 H (0.00-0.04) X 10*3/uL Neutrophils # 8.50 H (1.80-7.70) X 10*3/uL Lymphocytes # 0.28 L (0.90-5.00) X 10*3/uL Eosinophils # 0 L (0.04-0.35) X 10*3/uL BUN 30.4 H (9.0-27.0) mg/dL Est GFR (CKD-EPI)AfAm 44.2 L (60.0-200.0) Est GFR (CKD-EPI)NonAf 38.1 L (60.0-200.0) BUN/Creatinine Ratio 21.41 H (12.00-20.00) Ratio Glucose 216 H (70-110) mg/dL POC Glucose (mg/dL) 215 H (70-110) mg/dL Calcium 8.2 L (8.7-10.3) mg/dL ALT 52 H (8-44) U/L Total Protein 5.5 L (6.2-8.2) g/dL Albumin 3.3 L (3.8-4.9) g/dL Albumin/Globulin Ratio 1.48 L (1.60-3.17) g/dL Cortisol (3.1-22.4) ug/dL 10/20/22 Range/Units 11:39 RBC (4.10-5.20) X 10*6/uL Hgb (12.0-15.0) g/dL Hct (37.2-46.3) % MCH (27.0-32.0) pg Immature Gran # (0.00-0.04) X 10*3/uL Neutrophils # (1.80-7.70) X 10*3/uL Lymphocytes # (0.90-5.00) X 10*3/uL Eosinophils # (0.04-0.35) X 10*3/uL BUN (9.0-27.0) mg/dL Est GFR (CKD-EPI)AfAm (60.0-200.0) Est GFR (CKD-EPI)NonAf (60.0-200.0) BUN/Creatinine Ratio (12.00-20.00) Ratio Glucose (70-110) mg/dL POC Glucose (mg/dL) 338 H (70-110) mg/dL Calcium (8.7-10.3) mg/dL ALT (8-44) U/L Total Protein (6.2-8.2) g/dL Albumin (3.8-4.9) g/dL Albumin/Globulin Ratio (1.60-3.17) g/dL Cortisol (3.1-22.4) ug/dL Microbiology - Last 24 Hours (Table) 10/19/22 14:00 Urine Culture - Preliminary Urine,Clean Catch H & H 10/18/22 10/19/22 10/20/22 Range/Units 18:41 07:16 06:54 Hgb 13.6 D 12.1 11.4 L (11.4-16.0) gm/dL Hct 39.6 37.0 L 33.3 L (34.0-46.0) % Coagulation 10/18/22 Range/Units 18:41 INR 1.1 (<1.2) Result Diagrams: 10/20/22 06:54 10/20/22 06:54 Assessment and Plan Assessment: Assessment: Chronic low back pain L1-2 degenerative disc disease and anterior osteophytic spurring L1-2 lateral listhesis Slight degenerative scoliosis Neurogenic claudication Acute kidney injury Urinary tract infection Hypotension COPD exacerbation Diabetes mellitus Coronary artery disease History of DVT Hyperlipidemia History of hypertension Plan: Plan: 1. Patient does have a history of chronic low back pain. She's been treated and evaluated in the outpatient setting by her primary care provider. She has had some injections for her pain at her primary care provider's office. She has been intermittently taking hydrocodone as prescribed as needed for pain control. She is not currently experiencing any significant lower extremity weakness or radiculopathy bilaterally. She does admit to increased difficulty prolonged ambulation or standing as it does exacerbate her low back pain. Prolonged ambulation her legs also feel heavy. Reviewing of lumbar CT imaging does show some degenerative changes most significant at L1-2 with degenerative disc disease, lateral listhesis, and osteophytic spurring. There may be evidence of canal narrowing at this level. Her symptoms have not had recent change and have been ongoing. She is not experiencing any neurological compromise. We did discuss she could benefit from lumbar MRI imaging as well as consultation with pain management and possibly working through formal physical therapy. However, patient is currently being treated for multiple other medical diagnoses including acute kidney injury, urinary tract infection, hypotension, and COPD exacerbation. We did discuss to these medical diagnoses currently are a higher priority than her chronic low back pain. She does admit that she is worried about her kidney function, COPD exacerbation and hypotension. Currently, we discussed with him and have her continue working through treatment evaluation in regards these multiple other medical diagnoses. Currently plan for conservative treatment regards to her lumbar spine. I'll have her follow up in outpatient setting for further evaluation. We plan to have her follow up in approximately 3 weeks for further evaluation. If her symptoms are not improving, we may consider referral for pain management at that time and/or prescription for physical therapy. We may also plan to obtain MRI imaging of the lumbar spine for further evaluation. Patient feels this is a good plan of care. Patient may follow-up with Jd Reardon PA-C or Dr. Marco Antonio Sosa at [facility] in 3 weeks following discharge. From an orthopedic spine standpoint, patient is cleared for discharge and will plan to follow-up outpatient. 2. Patient will continue be seen and examined by multiple other medical providers for her other medical diagnoses including nephrology, pulmonology, and medicine. I have reviewed the case and imaging. I discussed case with the above. The patient does have some chronic degenerative issues at her lumbar spine but is currently being managed for multiple other medical issues which are being actively managed appropriately. We do not have active plan for intervention at her spine currently and she should continue with conservative care in terms of her chronic low back issues. She may mobilize as tolerated and follow-up on an outpatient basis.
--- NOTE | 2022-10-20 12:43 | P.CNPUL ---
History of Present Illness Consult date: 10/20/22 Requesting physician: Gregorio Garber Reason for consult: dyspnea, abnormal CXR/CT Chief complaint: Generalized weakness and hypotension History of present illness: This is a pleasant 66-year-old female with a history of anxiety/panic disorder, coronary artery disease with previous stent placements, hypertension, hyperlipidemia, fibromyalgia, partial left lower lobectomy done many years ago. She does have a history of chronic obstructive pulmonary disease and is a former smoker. He presented here to the emergency room on 10/18/2022 with progressive weakness of her lower extremities and hypotension. Chest x-ray reveals prominence of the pulmonary interstitium reflecting suspected fibrosis. CT angiogram revealed a markedly limited exam due to motion artifact. There was cardiomegaly and findings suggestive of pulmonary fibrosis. No obvious central pulmonary embolism. Computed tomography scan of the lumbar spine revealed no acute process. Doppler of the lower extremities were negative for DVT. She is seen today in consultation on the regular medical floor. Awake and alert in no acute distress. Maintaining O2 saturations in the 90s on room air. She's afebrile. Blood pressure 146/69. Denies any dizziness or lightheadedness. Up ambulating in her room. White count 9.2. Hemoglobin 11.4. Platelets 171. Sodium 139. Potassium 3.5. BUN 30. Creatinine 1.4. Glucose 216. Urine positive for bacteria and elevated white count. Urine culture pending. She's been initiated on DuoNeb inhalations, Pulmicort and Perforomist inhalations, IV Solu-Medrol. Normal saline at 75 ML's per hour. Antibiotics in the form of ceftriaxone. Review of Systems REVIEW OF SYSTEMS: CONSTITUTIONAL: Positive for generalized weakness of the lower extremities. Denies any recent significant weight loss or weight gain. EYES: Denies change in vision. EARS, NOSE, MOUTH, THROAT: Denies headaches, denies sore throat. CARDIOVASCULAR: Denies chest pain, palpitations or syncopal episodes. RESPIRATORY: Positive for shortness of breath, no cough, congestion or hemop tysis. GASTROINTESTINAL: Denies change in appetite, denies abdominal pain GENITOURINARY: Denies hematuria, denies infections. MUSKULOSKELETAL: A sitter for weakness. Denies pain, denies swelling. INTEGUMENTARY: Denies rash, denies eczema. NEUROLOGICAL: Denies recent memory loss, no recent seizure activity. PSYCHIATRIC: Denies anxiety, denies depression. HEMATOLOGIC/LYMPHATIC: Denies anemia, denies enlarged lymph nodes. Past Medical History Past Medical History: Coronary Artery Disease (CAD), COPD, Deep Vein Thrombosis (DVT), Fibromyalgia, GERD/Reflux, Hyperlipidemia, Hypertension, Osteoarthritis (OA), Skin Disorder Additional Past Medical History / Comment(s): DIVERTICULITIS, HX KIDNEY STONE- still has it but it's never moved , Pneumonia, ROSACEA, DVT RLE 2007,gerson cataracts, BILAT ILIAC ARTERIES BLOCKED PER PT, pulmonary fibrosis History of Any Multi-Drug Resistant Organisms: None Reported Past Surgical History: Appendectomy, Bowel Resection, Heart Catheterization With Stent, Hernia Repair, Tubal Ligation Additional Past Surgical History / Comment(s): COLONOSCOPY, PARTIAL LT LOBECTOMY-(pt stated they thought i might of had tb but it was just scar tissue), D & C, 07-17-14 BOWEL RESECTION, HEART CATH W 2 STENTS AT [facility] [place] 11-15-15 , 12-18-17 lap robotic assisted repair of inc hernia Past Anesthesia/Blood Transfusion Reactions: No Reported Reaction Date of Last Stent Placement:: 11-15-15 AT [facility] [place] Past Psychological History: Anxiety, Panic Disorder Additional Psychological History / Comment(s): PT IS INDEPENDANT-drives,LIVES WITH SPOUSE and 2 pet cats. has 3 adult children and 10 grandchildren. 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 Smoking Status: Former smoker Past Alcohol Use History: None Reported Additional Past Alcohol Use History / Comment(s): smoked since age 13 1ppd; QUIT 2008 Past Drug Use History: None Reported - Past Family History Mother Family Medical History: Congestive Heart Failure (CHF) Father Family Medical History: Cancer Additional Family Medical History / Comment(s): TYPE OF CANCER NOT KNOWN Medications and Allergies Home Medications Medication Instructions Recorded Confirmed Type clonazePAM [Clonazepam] 1 mg PO TID 02/20/14 10/18/22 History HYDROcodone/APAP 7.5-325MG [[place] 1 tab PO DAILY PRN 09/14/16 10/18/22 History 7.5-325] Rosuvastatin Calcium [Crestor] 40 mg PO DAILY 01/10/17 10/18/22 History Aspirin EC [Ecotrin Low Dose] 81 mg PO DAILY 01/27/20 10/18/22 History Clopidogrel Bisulfate [Plavix] 75 mg PO DAILY #90 tab 04/15/20 10/18/22 Rx metFORMIN HCL 500 mg PO DAILY 09/22/21 10/18/22 History Multivit-Min/Iron/Folic/Lutein 1 tab PO DAILY 06/28/22 10/18/22 History [Centrum Silver Women Tablet] Sertraline [Zoloft] 100 mg PO DAILY 06/28/22 10/18/22 History amLODIPine [Norvasc] 5 mg PO HS 06/28/22 10/18/22 History atenoloL [Tenormin] 50 mg PO DAILY 06/28/22 10/18/22 History Albuterol Sulfate [Albuterol 2 puff INHALATION RT-Q6H PRN 10/01/22 10/18/22 History Sulfate Hfa] Acetaminophen Tab [Tylenol] 650 mg PO Q6HR PRN tab 10/05/22 10/18/22 Rx Budesonide [Pulmicort] 0.5 mg INHALATION RT-BID 90 Days 10/05/22 10/18/22 Rx #180 ml Ipratropium-Albuterol Nebulize 3 ml INHALATION RT-QID 30 Days 10/05/22 10/18/22 Rx [Duoneb 0.5 mg-3 mg/3 ml Soln] #120 each Nitroglycerin Sl Tabs [Nitrostat] 0.4 mg SUBLINGUAL Q5M PRN tab 10/05/22 10/18/22 Rx Pantoprazole [Protonix] 40 mg PO AC-BID 90 Days #180 tab 10/05/22 10/18/22 Rx hydrALAZINE HCL [Apresoline] 100 mg PO BID 10/18/22 10/18/22 History Allergies Allergy/AdvReac Type Severity Reaction Status Date / Time hydrocodone bitartrate AdvReac Nausea & Verified 10/18/22 19:37 [From Vicodin] Vomiting propoxyphene napsylate AdvReac Nausea & Verified 10/18/22 19:37 [From Darvocet-N 100] Vomiting Physical Exam Vitals: Vital Signs Temp Pulse Pulse Resp BP Pulse Ox 10/20/22 11:49 90 10/20/22 11:36 88 10/20/22 07:57 96 10/20/22 07:08 97.7 F 80 18 146/69 92 L 10/20/22 02:00 97.7 F 91 130/71 94 L 10/19/22 20:21 90 10/19/22 20:02 80 10/19/22 19:40 98.0 F 82 18 123/63 93 L 10/19/22 15:52 88 18 10/19/22 15:43 84 18 10/19/22 13:20 97.5 F L 72 18 98/62 96 Intake and Output 10/19/22 10/20/22 10/20/22 22:59 06:59 14:59 Other: Voiding Method Toilet # Voids 3 GENERAL EXAM: Alert, pleasant 66-year-old female, on room air, comfortable in no apparent distress. HEAD: Normocephalic. EYES: Normal reaction of pupils, equal size. NOSE: Clear with pink turbinates. THROAT: No erythema or exudates. NECK: No masses, no JVD. CHEST: No chest wall deformity. LUNGS: Equal air entry with no crackles, wheeze, rhonchi or dullness. CVS: S1 and S2 normal with no audible murmur, regular rhythm. ABDOMEN: No hepatosplenomegaly, normal bowel sounds, no guarding or rigidity. SPINE: No scoliosis or deformity SKIN: No rashes CENTRAL NERVOUS SYSTEM: No focal deficits, tone is normal in all 4 extremities. EXTREMITIES: There is no peripheral edema. No clubbing, no cyanosis. Peripheral pulses are intact. Results - Laboratory Findings CBC and BMP: 10/20/22 06:54 10/20/22 06:54 PT/INR, D-dimer PT 11.1 sec (9.0-12.0) 10/18/22 18:41 INR 1.1 (<1.2) 10/18/22 18:41 D-Dimer 3.00 mg/L FEU (<0.60) H 10/18/22 18:41 Abnormal lab findings: Abnormal Labs 10/18/22 10/18/22 10/18/22 18:41 18:41 18:41 RBC Hgb Hct MCV MCH Immature Gran # Neutrophils # 8.5 H Lymphocytes # 0.2 L Monocytes # Eosinophils # D-Dimer 3.00 H Sodium 134 L Potassium 3.2 L BUN Creatinine 1.78 H Est GFR (CKD-EPI)AfAm Est GFR (CKD-EPI)NonAf BUN/Creatinine Ratio Glucose 115 H POC Glucose (mg/dL) Plasma Lactic Acid Florian Calcium 8.3 L Magnesium 1.1 L AST 48 H ALT 59 H Alkaline Phosphatase 130 H Total Protein Albumin Albumin/Globulin Ratio Cortisol Urine Appearance Ur Specific [place] Urine Protein Ur Leukocyte Esterase Urine RBC Urine WBC Urine Bacteria Urine Mucus 10/18/22 10/18/22 10/19/22 18:41 21:25 07:16 RBC 3.79 L Hgb Hct 37.0 L MCV 97.6 H MCH Immature Gran # 0.05 H Neutrophils # 9.51 H Lymphocytes # 0.09 L Monocytes # 0.12 L Eosinophils # 0 L D-Dimer Sodium Potassium BUN Creatinine Est GFR (CKD-EPI)AfAm Est GFR (CKD-EPI)NonAf BUN/Creatinine Ratio Glucose POC Glucose (mg/dL) Plasma Lactic Acid Florian 3.2 H* Calcium Magnesium AST ALT Alkaline Phosphatase Total Protein Albumin Albumin/Globulin Ratio Cortisol Urine Appearance Cloudy H Ur Specific [place] 1.036 H Urine Protein 1+ H Ur Leukocyte Esterase Moderate H Urine RBC 10 H Urine WBC 52 H Urine Bacteria Rare H Urine Mucus Rare H 10/19/22 10/19/22 10/19/22 07:16 07:16 11:18 RBC Hgb Hct MCV MCH Immature Gran # Neutrophils # Lymphocytes # Monocytes # Eosinophils # D-Dimer Sodium Potassium BUN Creatinine 2.0 H Est GFR (CKD-EPI)AfAm 28.5 L Est GFR (CKD-EPI)NonAf 24.6 L BUN/Creatinine Ratio 11.57 L Glucose 221 H POC Glucose (mg/dL) 243 H Plasma Lactic Acid Florian Calcium 7.5 L Magnesium AST ALT 54 H Alkaline Phosphatase Total Protein 5.3 L Albumin 3.2 L Albumin/Globulin Ratio 1.48 L Cortisol 42.0 H Urine Appearance Ur Specific [place] Urine Protein Ur Leukocyte Esterase Urine RBC Urine WBC Urine Bacteria Urine Mucus 10/19/22 10/19/22 10/20/22 16:29 20:24 06:40 RBC Hgb Hct MCV MCH Immature Gran # Neutrophils # Lymphocytes # Monocytes # Eosinophils # D-Dimer Sodium Potassium BUN Creatinine Est GFR (CKD-EPI)AfAm Est GFR (CKD-EPI)NonAf BUN/Creatinine Ratio Glucose POC Glucose (mg/dL) 187 H 273 H 215 H Plasma Lactic Acid Florian Calcium Magnesium AST ALT Alkaline Phosphatase Total Protein Albumin Albumin/Globulin Ratio Cortisol Urine Appearance Ur Specific [place] Urine Protein Ur Leukocyte Esterase Urine RBC Urine WBC Urine Bacteria Urine Mucus 10/20/22 10/20/22 10/20/22 06:54 06:54 11:39 RBC 3.55 L Hgb 11.4 L Hct 33.3 L MCV MCH 32.1 H Immature Gran # 0.08 H Neutrophils # 8.50 H Lymphocytes # 0.28 L Monocytes # Eosinophils # 0 L D-Dimer Sodium Potassium BUN 30.4 H Creatinine Est GFR (CKD-EPI)AfAm 44.2 L Est GFR (CKD-EPI)NonAf 38.1 L BUN/Creatinine Ratio 21.41 H Glucose 216 H POC Glucose (mg/dL) 338 H Plasma Lactic Acid Florian Calcium 8.2 L Magnesium AST ALT 52 H Alkaline Phosphatase Total Protein 5.5 L Albumin 3.3 L Albumin/Globulin Ratio 1.48 L Cortisol Urine Appearance Ur Specific [place] Urine Protein Ur Leukocyte Esterase Urine RBC Urine WBC Urine Bacteria Urine Mucus - Diagnostic Findings Chest x-ray: image reviewed Assessment and Plan Assessment: Generalized weakness especially in the lower extremities of unclear etiology. Possibly related to a suspected UTI. Lumbar spine CT negative for acute process. Dopplers of lower extremity negative for DVT Hypotension, improved Urinary tract infection, currently on ceftriaxone Chronic obstructive pulmonary disease Former smoker History of left lung partial lobectomy for suspected tuberculosis however was told just scarring. This was done many years ago at [facility] [place] History of fibromyalgia Hypertension, history of Hyperlipidemia History of anxiety/depression Plan: The patient was seen and evaluated Chest x-ray, CT angiogram, medications and labs reviewed Continue with DuoNeb inhalations, Pulmicort and Perforomist inhalations, IV Solu-Medrol Would benefit from outpatient workup including full pulmonary function testing We will continue to follow and make further recommendations based on her clinical status I have personally seen and examined the patient, performed the documentation and the assessment and plan as written. Number of minutes spent on the visit: 20.
--- NOTE | 2022-10-20 14:34 | P.PN ---
Subjective Progress Note Date: 10/20/22 Patient is a very pleasant 66-year-old female who is seen and examined at bedside for further evaluation of her lumbar spine. She presented to the emergency department for further evaluation after she states she has been feeling generally weaker over the past 2 weeks. She's had difficulty regular activities of daily living. She feels unsteady on her feet due to her weakness. She does admit to chronic low back pain most significant over the right paraspinals and also across her lumbosacral junction. She is not experiencing specific lower extremity weakness or radiculopathy bilaterally. She admits to difficulty prolonged activities with her lower extremities. She follows with her primary care provider, Dr. Gregorio Garber, in the outpatient setting. 10/20. Patient seen and examined. Still complaining of pain in her back and her thighs. REVIEW OF SYSTEMS: CONSTITUTIONAL: No fever, no malaise,. CARDIOVASCULAR: No chest pain, no palpitations, no syncope. PULMONARY: No shortness of breath, no cough, GASTROINTESTINAL: No diarrhea, no nausea, no vomiting, no abdominal pain. NEUROLOGICAL: No headaches, no weakness, PHYSICAL EXAMINATION: GENERAL: The patient is alert and oriented x3, not in any acute distress. Well developed, well nourished. HEENT: Pupils are round and equally reacting to light. EOMI. No scleral icterus. No conjunctival pallor. Normocephalic, atraumatic. No pharyngeal erythema. No thyromegaly. CARDIOVASCULAR: S1 and S2 present. No murmurs, rubs, or gallops. PULMONARY: Chest is clear to auscultation, no wheezing or crackles. ABDOMEN: Soft, nontender, nondistended, normoactive bowel sounds. No palpable organomegaly. MUSCULOSKELETAL: No joint swelling or deformity. EXTREMITIES: No cyanosis, clubbing, or pedal edema. NEUROLOGICAL: Gross neurological examination did not reveal any focal deficits. SKIN: No rashes. Assessment and plan Pulmonary fibrosis COPD exacerbation Hypomagnesemia Acute kidney injury secondary to hypotension, ischemic ATN, rule out urine retention. UA shows 1+ protein, no blood and WBCs 52 Hypotension, possibly volume depletion. Check random cortisol level UTI Type 2 diabetes maintained on metformin Plan Monitor vital signs Monitor CBC Monitor CMP Continue telemetry monitoring Strict I's and O's, daily weights Avoid nephrotoxic agents Continue IV fluids Hold metformin for now Hold Norvas CTA negative for PE, showed pulmonary fibrosis Continue IV Rocephin Continue breathing treatments follow-up in nephrology recommendations Pulmonology consulted Objective - Vital Signs Vital signs: Vital Signs Temp 97.7 F 10/20/22 07:08 Pulse 80 10/20/22 07:08 Resp 18 10/20/22 07:08 BP 146/69 10/20/22 07:08 Pulse Ox 96 10/20/22 07:57 FiO2 Intake & Output 10/19/22 10/20/22 10/20/22 18:59 06:59 18:59 Output Total 88 Balance -88 Output: Post Void Residual 88 Other: Voiding Method Toilet Toilet # Voids 3 3 - Labs CBC & Chem 7: 10/20/22 06:54 10/20/22 06:54 Labs: Abnormal Lab Results - Last 24 Hours (Table) 10/19/22 10/19/22 10/19/22 Range/Units 07:16 07:16 07:16 RBC 3.79 L (4.10-5.20) X 10*6/uL Hct 37.0 L (37.2-46.3) % MCV 97.6 H (80.0-97.0) fL Immature Gran # 0.05 H (0.00-0.04) X 10*3/uL Neutrophils # 9.51 H (1.80-7.70) X 10*3/uL Lymphocytes # 0.09 L (0.90-5.00) X 10*3/uL Monocytes # 0.12 L (0.20-1.00) X 10*3/uL Eosinophils # 0 L (0.04-0.35) X 10*3/uL Creatinine 2.0 H (0.6-1.5) mg/dL Est GFR (CKD-EPI)AfAm 28.5 L (60.0-200.0) Est GFR (CKD-EPI)NonAf 24.6 L (60.0-200.0) BUN/Creatinine Ratio 11.57 L (12.00-20.00) Ratio Glucose 221 H (70-110) mg/dL POC Glucose (mg/dL) (70-110) mg/dL Calcium 7.5 L (8.7-10.3) mg/dL ALT 54 H (8-44) U/L Total Protein 5.3 L (6.2-8.2) g/dL Albumin 3.2 L (3.8-4.9) g/dL Albumin/Globulin Ratio 1.48 L (1.60-3.17) g/dL Cortisol 42.0 H (3.1-22.4) ug/dL 10/19/22 10/19/22 10/19/22 Range/Units 11:18 16:29 20:24 RBC (4.10-5.20) X 10*6/uL Hct (37.2-46.3) % MCV (80.0-97.0) fL Immature Gran # (0.00-0.04) X 10*3/uL Neutrophils # (1.80-7.70) X 10*3/uL Lymphocytes # (0.90-5.00) X 10*3/uL Monocytes # (0.20-1.00) X 10*3/uL Eosinophils # (0.04-0.35) X 10*3/uL Creatinine (0.6-1.5) mg/dL Est GFR (CKD-EPI)AfAm (60.0-200.0) Est GFR (CKD-EPI)NonAf (60.0-200.0) BUN/Creatinine Ratio (12.00-20.00) Ratio Glucose (70-110) mg/dL POC Glucose (mg/dL) 243 H 187 H 273 H (70-110) mg/dL Calcium (8.7-10.3) mg/dL ALT (8-44) U/L Total Protein (6.2-8.2) g/dL Albumin (3.8-4.9) g/dL Albumin/Globulin Ratio (1.60-3.17) g/dL Cortisol (3.1-22.4) ug/dL 10/20/22 Range/Units 06:40 RBC (4.10-5.20) X 10*6/uL Hct (37.2-46.3) % MCV (80.0-97.0) fL Immature Gran # (0.00-0.04) X 10*3/uL Neutrophils # (1.80-7.70) X 10*3/uL Lymphocytes # (0.90-5.00) X 10*3/uL Monocytes # (0.20-1.00) X 10*3/uL Eosinophils # (0.04-0.35) X 10*3/uL Creatinine (0.6-1.5) mg/dL Est GFR (CKD-EPI)AfAm (60.0-200.0) Est GFR (CKD-EPI)NonAf (60.0-200.0) BUN/Creatinine Ratio (12.00-20.00) Ratio Glucose (70-110) mg/dL POC Glucose (mg/dL) 215 H (70-110) mg/dL Calcium (8.7-10.3) mg/dL ALT (8-44) U/L Total Protein (6.2-8.2) g/dL Albumin (3.8-4.9) g/dL Albumin/Globulin Ratio (1.60-3.17) g/dL Cortisol (3.1-22.4) ug/dL Microbiology - Last 24 Hours (Table) 10/19/22 14:00 Urine Culture - Preliminary Urine,Clean Catch
[2022-10-20 16:55] LABS: Glucose,Whole Blood 115 mg/dL (70-110)
--- NOTE | 2022-10-20 19:19 | US ---
EXAMINATION TYPE: US arterial LE multi level DATE OF EXAM: 10/20/2022 8:59 AM CLINICAL HISTORY: pad/leg weakness. Known PAD, Iliac stents and heart stents History of: Smoker: previous Hypertension: yes Diabetic: yes Hyperlipidemia: yes TIA/CVA: no Previous Vascular Surgery: stents MN: no Vascular Ulcers: no Claudication: yes Gangrene: no Doppler Waveforms: Right: Biphasic Left: Biphasic Right Brachial Pressure: 138 Left Brachial Pressure: 143 Ankle-Brachial Indices: Right: 0.71 Left: 0.75 Toe Brachial Indices: Right: 0.5 Left: 0.5 IMPRESSION: Mild to moderate peripheral arterial disease bilaterally.
[2022-10-20 20:18] LABS: Glucose,Whole Blood 302 mg/dL (70-110)
[2022-10-20] MEDS: BUDESONIDE 1 MG/2 ML NEBU INHALATION SCH (20:44)
[2022-10-20] MEDS: FORMOTEROL FUMARATE 20 MCG/2 ML NEBU INHALATION SCH (20:44)
[2022-10-21] MEDS: methylPREDNISolone SOD SUCCI 125 MG/2 ML VIAL IV SCH ×4 (01:08→17:40)
[2022-10-21 06:28] LABS: Glucose,Whole Blood 307 mg/dL (70-110)
[2022-10-21] MEDS: INSULIN ASPART (NovoLOG) 100 UNIT/ML VIAL SQ SCH ×4 (06:37→20:53)
[2022-10-21] MEDS: PANTOPRAZOLE 40 MG TABLET PO SCH ×2 (06:37→17:40)
[2022-10-21] MEDS: SODIUM CHLORIDE 0.9% 1,000 ML IV SCH ×2 (06:37→19:54)
[2022-10-21] MEDS: IPRATROPIUM-ALBUTEROL 3 ML NEB INHALATION SCH ×4 (07:51→21:47)
[2022-10-21] MEDS: BUDESONIDE 1 MG/2 ML NEBU INHALATION SCH ×2 (07:51→21:47)
[2022-10-21] MEDS: FORMOTEROL FUMARATE 20 MCG/2 ML NEBU INHALATION SCH ×2 (08:05→21:47)
[2022-10-21] MEDS: clonazePAM 1 MG TAB PO SCH ×3 (10:08→20:53)
[2022-10-21] MEDS: atenoloL 50 MG TAB PO SCH (10:08)
[2022-10-21] MEDS: MULTIVITAMINS, THERA 1 EACH TAB PO SCH (10:08)
[2022-10-21] MEDS: MAGNESIUM OXIDE 400 MG TAB PO SCH ×2 (10:08→20:53)
[2022-10-21] MEDS: SERTRALINE 100 MG TAB PO SCH (10:09)
[2022-10-21] MEDS: ASPIRIN 81 MG PO SCH (10:09)
[2022-10-21] MEDS: CLOPIDOGREL 75 MG TAB PO SCH (10:09)
[2022-10-21 11:26] LABS: Glucose,Whole Blood 246 mg/dL (70-110)
--- NOTE | 2022-10-21 11:44 | P.PN ---
Subjective Progress Note Date: 10/21/22 This is a pleasant 66-year-old female with a history of anxiety/panic disorder, coronary artery disease with previous stent placements, hypertension, hyperlipidemia, fibromyalgia, partial left lower lobectomy done many years ago. She does have a history of chronic obstructive pulmonary disease and is a former smoker. He presented here to the emergency room on 10/18/2022 with progressive weakness of her lower extremities and hypotension. Chest x-ray reveals prominence of the pulmonary interstitium reflecting suspected fibrosis. CT angiogram revealed a markedly limited exam due to motion artifact. There was cardiomegaly and findings suggestive of pulmonary fibrosis. No obvious central pulmonary embolism. Computed tomography scan of the lumbar spine revealed no acute process. Doppler of the lower extremities were negative for DVT. She is seen today in consultation on the regular medical floor. Awake and alert in no acute distress. Maintaining O2 saturations in the 90s on room air. She's afebrile. Blood pressure 146/69. Denies any dizziness or lightheadedness. Up ambulating in her room. White count 9.2. Hemoglobin 11.4. Platelets 171. Sodium 139. Potassium 3.5. BUN 30. Creatinine 1.4. Glucose 216. Urine positive for bacteria and elevated white count. Urine culture pending. She's been initiated on DuoNeb inhalations, Pulmicort and Perforomist inhalations, IV Solu-Medrol. Normal saline at 75 ML's per hour. Antibiotics in the form of ceftriaxone. The patient is seen today 10/21/2022 in follow-up on the regular medical floor. She is resting comfortably in bed. Maintaining good O2 saturations in the 90s on 2 L/m per nasal cannula. Normal saline at 75 ML's per hour. She is continued on DuoNeb inhalations, Pulmicort and Perforomist inhalations, IV Solu-Medrol. Urine culture revealed no growth. Blood sugar 246. Remains on antibiotics in the form of ceftriaxone. Objective - Vital Signs Vital signs: Vital Signs Temp 97.8 F 10/21/22 06:57 Pulse 88 10/21/22 08:11 Resp 18 10/21/22 07:30 BP 155/84 10/21/22 06:57 Pulse Ox 94 L 10/21/22 06:57 FiO2 Intake & Output 10/20/22 10/21/22 10/21/22 18:59 06:59 18:59 Output Total 3 Balance -3 Output: Urine 3 Other: Voiding Method Toilet # Voids 2 - Exam GENERAL EXAM: Alert, 66-year-old female, on room air, resting comfortably in bed, comfortable in no apparent distress. HEAD: Normocephalic. EYES: Normal reaction of pupils, equal size. NOSE: Clear with pink turbinates. THROAT: No erythema or exudates. NECK: No masses, no JVD. CHEST: No chest wall deformity. LUNGS: Equal air entry with faint crackles in the posterior bases. CVS: S1 and S2 normal with no audible murmur, regular rhythm. ABDOMEN: No hepatosplenomegaly, normal bowel sounds, no guarding or rigidity. SPINE: No scoliosis or deformity SKIN: No rashes CENTRAL NERVOUS SYSTEM: No focal deficits, tone is normal in all 4 extremities. EXTREMITIES: There is no peripheral edema. No clubbing, no cyanosis. Peripheral pulses are intact. - Labs CBC & Chem 7: 10/20/22 06:54 10/20/22 06:54 Labs: Abnormal Lab Results - Last 24 Hours (Table) 10/20/22 10/20/22 10/20/22 Range/Units 11:39 16:54 20:16 POC Glucose (mg/dL) 338 H 115 H 302 H (70-110) mg/dL 10/21/22 10/21/22 Range/Units 06:26 11:24 POC Glucose (mg/dL) 307 H 246 H (70-110) mg/dL Microbiology - Last 24 Hours (Table) 10/19/22 14:00 Urine Culture - Final Urine,Clean Catch Assessment and Plan Assessment: Generalized weakness especially in the lower extremities of unclear etiology. Lumbar spine CT negative for acute process. Dopplers of lower extremity negative for DVT Hypotension, recovered Urinary tract infection ruled out, currently on ceftriaxone and will check a pro-calcitonin Chronic obstructive pulmonary disease Former smoker History of left lung partial lobectomy for suspected tuberculosis however was told just scarring. [place] was [place] [facility] [place] Consider chronic pulmonary fibrosis with emphysema (CPFE) History of fibromyalgia Hypertension, history of Hyperlipidemia History of anxiety/depression Plan: The patient was seen and evaluated Medications and labs reviewed Stable and on 2 L nasal cannula Continue the current treatment plan Continue ceftriaxone, check a pro-calcitonin We will continue to follow I have personally seen and examined the patient, performed the documentation and the assessment and plan as written. Number of minutes spent on the visit: 10.
--- NOTE | 2022-10-21 11:49 | P.PN ---
Subjective Patient is seen for follow-up for acute kidney injury mostly associated with low blood pressure. Patient also had CTA on 10/18/2022. Patient reports good urine output. Maintained on IV fluids. Also being treated for COPD exacerbation. Serum creatinine improved to 1.4 yesterday. 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 Acute kidney injury secondary to hypotension, ischemic ATN, rule out urine retention. UA shows 1+ protein, no blood and WBCs 52. Ultrasound shows no hydronephrosis. Renal function improved 2. Hypotension, possibly volume depletion. Cortisol level was 42. Blood pressure has improved 3. Pyuria rule out UTI. Urine culture shows no growth 4. Type 2 diabetes maintained on metformin Plan: DC IV fluids as patient is eating well Follow-up as outpatient in about 1-2 weeks.
[2022-10-21 16:15] LABS: Glucose,Whole Blood 249 mg/dL (70-110)
[2022-10-21 20:45] LABS: Glucose,Whole Blood 262 mg/dL (70-110)
--- NOTE | 2022-10-21 21:45 | PN ---
PROGRESS NOTE SUBJECTIVE: She had arterial Doppler, it shows [id number] peripheral artery disease bilaterally. She also had a Doppler study which was negative for DVTs in the legs. She saw Dr. Rush who saw the patient with low blood pressure, CTA on 10/18/2022. She had good urine output. She remains on IV fluids, treated for COPD exacerbation. Creatinine is improved to 1.4. OBJECTIVE: VITAL SIGNS: Blood pressure 150s/80s, pulse is 88, respiratory rate 12 to 16, and temperature 97.8. CARDIOVASCULAR: S1, S2. LUNGS: Scattered wheeze x4. HEMATOLOGY: Negative Homans. PSYCH: Fair mood and affect. NEUROLOGIC: Cranial nerves intact. ASSESSMENT: Acute kidney injury secondary to hypotension, ischemic ATN, rule out urinary retention. UA was high white cells but cultures negative. Ultrasound showed no hydronephrosis. Renal function improved with hypotension. Cortisol level was good. Blood pressure was improved with fluids with Dr. Simons due to lactic acidosis. She is doing very well from a kidney standpoint pulp Orth orthopedic surgery saw her for the leg weakness in the thighs bilaterally. CAT scan of the lumbar spine was reviewed. Orthopedic neurosurgeons says she has degenerative disk disease in her back site, scoliosis, COPD, hypertension, coronary artery disease, dyslipidemia, hypertension, recently quit smoking. We can do outpatient workup with her back at this time. We will recheck magnesium for right upper thigh pain she has had today that was gone yesterday. She will have physical therapy on her back as an outpatient. Continue current treatment await for Pulmonary recommendations . MMODL / IJN: [id number] /
[2022-10-22 05:28] LABS: Glucose,Whole Blood 312 mg/dL (70-110)
[2022-10-22] MEDS: PANTOPRAZOLE 40 MG TABLET PO SCH ×2 (05:42→16:29)
[2022-10-22] MEDS: methylPREDNISolone SOD SUCCI 125 MG/2 ML VIAL IV SCH ×4 (05:42→18:20)
[2022-10-22] MEDS: INSULIN ASPART (NovoLOG) 100 UNIT/ML VIAL SQ SCH ×4 (05:42→20:56)
[2022-10-22] MEDS: SODIUM CHLORIDE 0.9% 1,000 ML IV SCH (05:43)
[2022-10-22] MEDS ORDERED: amLODIPine 5 MG TAB PO STA (07:31)
[2022-10-22] MEDS: IPRATROPIUM-ALBUTEROL 3 ML NEB INHALATION SCH ×4 (07:50→21:19)
[2022-10-22] MEDS: BUDESONIDE 1 MG/2 ML NEBU INHALATION SCH ×2 (07:50→21:19)
[2022-10-22] MEDS: FORMOTEROL FUMARATE 20 MCG/2 ML NEBU INHALATION SCH ×2 (07:50→21:19)
[2022-10-22] MEDS: CLOPIDOGREL 75 MG TAB PO SCH (08:06)
[2022-10-22] MEDS: MULTIVITAMINS, THERA 1 EACH TAB PO SCH (08:06)
[2022-10-22] MEDS: clonazePAM 1 MG TAB PO SCH ×3 (08:06→20:54)
[2022-10-22] MEDS: ASPIRIN 81 MG PO SCH (08:06)
[2022-10-22] MEDS: SERTRALINE 100 MG TAB PO SCH (08:06)
[2022-10-22] MEDS: MAGNESIUM OXIDE 400 MG TAB PO SCH ×2 (08:06→20:54)
[2022-10-22] MEDS: atenoloL 50 MG TAB PO SCH ×2 (08:06→20:54)
[2022-10-22 09:16] LABS: Magnesium 1.9 mg/dL (1.5-2.4)
[2022-10-22 09:28] LABS: ALT 105 U/L (8-44); AST 57 U/L (13-35); African American GFR (CKD) 67.5 (60.0-200.0); Albumin 3.4 g/dL (3.8-4.9); Albumin/Globulin Ratio 1.55 (1.60-3.17); Alkaline Phosphatase 114 U/L (41-126); Blood Urea Nitrogen 29.7 mg/dL (9.0-27.0); Calcium 8.8 mg/dL (8.7-10.3); Carbon Dioxide 22.6 mmol/L (20.0-27.5); Chloride 105 mmol/L (96-109); Globulin 2.2 g/dL (1.6-3.3); Glucose 312 mg/dL (70-110); Non-African American GFR(CKD) 58.2 (60.0-200.0); Potassium 3.9 mmol/L (3.5-5.5); Sodium 138 mmol/L (135-145); Total Bilirubin <0.15 mg/dL (0.30-1.20); Total Protein 5.6 g/dL (6.2-8.2)
[2022-10-22 09:42] LABS: Basophils # (A) 0.05 X 10*3/uL (0.00-0.10); Basophils % (A) 0.6 %; Eosinophils # (A) 0 X 10*3/uL (0.04-0.35); Eosinophils % (A) 0 %; HCT 34.1 % (37.2-46.3); HGB 11.4 g/dL (12.0-15.0); Immature Grans, Automated 2.2 %; Lymphocytes # (A) 0.38 X 10*3/uL (0.90-5.00); Lymphocytes % (A) 4.7 %; MCH 32.2 pg (27.0-32.0); MCHC 33.4 g/dL (32.0-37.0); MCV 96.3 fL (80.0-97.0); Monocytes # (A) 0.42 X 10*3/uL (0.20-1.00); Monocytes % (A) 5.2 %; NRBC Per 100 WBC 0 /100 WBCS (0.0-0.0); Neutrophils # (A) 7.05 X 10*3/uL (1.80-7.70); Neutrophils % (A) 87.3 %; Platelet Count 199 X 10*3/uL (140-440); RBC 3.54 X 10*6/uL (4.10-5.20); RDW 13.7 % (11.5-14.5); WBC 8.08 X 10*3/uL (4.50-10.00)
--- NOTE | 2022-10-22 10:43 | P.PN ---
Subjective Patient is seen for follow-up for acute kidney injury mostly associated with low blood pressure. Patient also had CTA on 10/18/2022. Patient reports good urine output. Maintained on IV fluids. Also being treated for COPD exacerbation. Serum creatinine improved to 1.0 today Objective - Vital Signs Vital signs: Vital Signs Temp 97.8 F 10/22/22 07:09 Pulse 77 10/22/22 08:00 Resp 20 10/22/22 08:00 BP 182/73 10/22/22 07:09 Pulse Ox 96 10/22/22 07:09 FiO2 Intake & Output 10/21/22 10/22/22 10/22/22 18:59 06:59 18:59 Intake Total 1080 720 Balance 1080 720 Intake: Oral 1080 720 Other: Voiding Method Toilet Toilet # Voids 3 2 - Exam Patient is awake, comfortable, in no acute distress Examination of the heart S1 and S2 Examination of the lungs bilateral breath sounds are heard, occasional wheezing Abdomen is soft nontender Examination lower extremity shows no evidence of edema [employer] exam grossly intact - Labs CBC & Chem 7: 10/22/22 04:42 10/22/22 04:42 Labs: Abnormal Lab Results - Last 24 Hours (Table) 10/21/22 10/21/22 10/21/22 Range/Units 11:24 11:46 16:14 RBC (4.10-5.20) X 10*6/uL Hgb (12.0-15.0) g/dL Hct (37.2-46.3) % MCH (27.0-32.0) pg Immature Gran # (0.00-0.04) X 10*3/uL Lymphocytes # (0.90-5.00) X 10*3/uL Eosinophils # (0.04-0.35) X 10*3/uL BUN (9.0-27.0) mg/dL Est GFR (CKD-EPI)NonAf (60.0-200.0) BUN/Creatinine Ratio (12.00-20.00) Ratio Glucose (70-110) mg/dL POC Glucose (mg/dL) 246 H 249 H (70-110) mg/dL Total Bilirubin (0.30-1.20) mg/dL AST (13-35) U/L ALT (8-44) U/L Total Protein (6.2-8.2) g/dL Albumin (3.8-4.9) g/dL Albumin/Globulin Ratio (1.60-3.17) g/dL Procalcitonin 0.98 H (0.02-0.09) ng/mL 10/21/22 10/22/22 10/22/22 Range/Units 20:44 04:42 04:42 RBC 3.54 L (4.10-5.20) X 10*6/uL Hgb 11.4 L (12.0-15.0) g/dL Hct 34.1 L (37.2-46.3) % MCH 32.2 H (27.0-32.0) pg Immature Gran # 0.18 H (0.00-0.04) X 10*3/uL Lymphocytes # 0.38 L (0.90-5.00) X 10*3/uL Eosinophils # 0 L (0.04-0.35) X 10*3/uL BUN 29.7 H (9.0-27.0) mg/dL Est GFR (CKD-EPI)NonAf 58.2 L (60.0-200.0) BUN/Creatinine Ratio 29.70 H (12.00-20.00) Ratio Glucose 312 H (70-110) mg/dL POC Glucose (mg/dL) 262 H (70-110) mg/dL Total Bilirubin <0.15 L (0.30-1.20) mg/dL AST 57 H (13-35) U/L ALT 105 H (8-44) U/L Total Protein 5.6 L (6.2-8.2) g/dL Albumin 3.4 L (3.8-4.9) g/dL Albumin/Globulin Ratio 1.55 L (1.60-3.17) g/dL Procalcitonin (0.02-0.09) ng/mL 10/22/22 Range/Units 05:26 RBC (4.10-5.20) X 10*6/uL Hgb (12.0-15.0) g/dL Hct (37.2-46.3) % MCH (27.0-32.0) pg Immature Gran # (0.00-0.04) X 10*3/uL Lymphocytes # (0.90-5.00) X 10*3/uL Eosinophils # (0.04-0.35) X 10*3/uL BUN (9.0-27.0) mg/dL Est GFR (CKD-EPI)NonAf (60.0-200.0) BUN/Creatinine Ratio (12.00-20.00) Ratio Glucose (70-110) mg/dL POC Glucose (mg/dL) 312 H (70-110) mg/dL Total Bilirubin (0.30-1.20) mg/dL AST (13-35) U/L ALT (8-44) U/L Total Protein (6.2-8.2) g/dL Albumin (3.8-4.9) g/dL Albumin/Globulin Ratio (1.60-3.17) g/dL Procalcitonin (0.02-0.09) ng/mL Assessment and Plan Assessment: 1. Acute kidney injury secondary to hypotension, ischemic ATN, rule out urine retention. UA shows 1+ protein, no blood and WBCs 52. Ultrasound shows no hydronephrosis. Renal function improved 2. Hypotension, possibly volume depletion. Cortisol level was 42. Blood pressure has improved 3. Pyuria rule out UTI. Urine culture shows no growth 4. Type 2 diabetes maintained on metformin 5. Hypertension currently uncontrolled due to steroids. DC IV fluids and resume hydralazine that patient was taking at home along with Tenormin and Norvasc Plan: DC IV fluids Resume hydralazine that patient was taking at home Follow-up as outpatient in about 1-2 weeks.
[2022-10-22] MEDS: hydrALAZINE HCL 50 MG TAB PO SCH ×2 (11:24→20:54)
[2022-10-22] MEDS: HYDROcodone/APAP 7.5-325MG 1 EACH TAB PO PRN ×2 (11:25→18:19)
[2022-10-22 11:45] LABS: Glucose,Whole Blood 183 mg/dL (70-110)
[2022-10-22] MEDS ORDERED: NON FORMULARY DRUG (Hydralazine Hcl [Apresoline] 100 MG Tablet) PO SCH (11:45)
--- NOTE | 2022-10-22 11:48 | P.PN ---
Subjective Progress Note Date: 10/22/22 This is a pleasant 66-year-old female with a history of anxiety/panic disorder, coronary artery disease with previous stent placements, hypertension, hyperlipidemia, fibromyalgia, partial left lower lobectomy done many years ago. She does have a history of chronic obstructive pulmonary disease and is a former smoker. He presented here to the emergency room on 10/18/2022 with progressive weakness of her lower extremities and hypotension. Chest x-ray reveals prominence of the pulmonary interstitium reflecting suspected fibrosis. CT angiogram revealed a markedly limited exam due to motion artifact. There was cardiomegaly and findings suggestive of pulmonary fibrosis. No obvious central pulmonary embolism. Computed tomography scan of the lumbar spine revealed no acute process. Doppler of the lower extremities were negative for DVT. She is seen today in consultation on the regular medical floor. Awake and alert in no acute distress. Maintaining O2 saturations in the 90s on room air. She's afebrile. Blood pressure 146/69. Denies any dizziness or lightheadedness. Up ambulating in her room. White count 9.2. Hemoglobin 11.4. Platelets 171. Sodium 139. Potassium 3.5. BUN 30. Creatinine 1.4. Glucose 216. Urine positive for bacteria and elevated white count. Urine culture pending. She's been initiated on DuoNeb inhalations, Pulmicort and Perforomist inhalations, IV Solu-Medrol. Normal saline at 75 ML's per hour. Antibiotics in the form of ceftriaxone. The patient is seen today 10/21/2022 in follow-up on the regular medical floor. She is resting comfortably in bed. Maintaining good O2 saturations in the 90s on 2 L/m per nasal cannula. Normal saline at 75 ML's per hour. She is continued on DuoNeb inhalations, Pulmicort and Perforomist inhalations, IV Solu-Medrol. Urine culture revealed no growth. Blood sugar 246. Remains on antibiotics in the form of ceftriaxone. The patient is seen today 10/22/2022 in follow-up on the regular medical floor. She is sitting up in bed. Maintaining good O2 saturations in the 90s on room air. Normal saline at 10 MLS per hour. She is continued on DuoNeb inhalations, Pulmicort and Perforomist inhalations, IV Solu-Medrol. Antibiotics in the form of ceftriaxone. Procalcitonin 0.9. White count 8.0. Hemoglobin 11.4. Platelets 199. Sodium 138. Potassium 3.9. Bicarb 23. BUN 29. Creatinine 1.0. Glucose 312. AST 57. ALT 105. She is having ongoing issues with hypertension and lower extremity weakness. Objective - Vital Signs Vital signs: Vital Signs Temp 97.8 F 10/22/22 07:09 Pulse 77 10/22/22 08:00 Resp 20 10/22/22 08:00 BP 182/73 10/22/22 07:09 Pulse Ox 96 10/22/22 07:09 FiO2 Intake & Output 10/21/22 10/22/22 10/22/22 18:59 06:59 18:59 Intake Total 1080 720 Balance 1080 720 Intake: Oral 1080 720 Other: Voiding Method Toilet Toilet # Voids 3 2 - Exam GENERAL EXAM: Alert, anxious, 66-year-old female, on room air, sitting up in bed, in no apparent distress. HEAD: Normocephalic. EYES: Normal reaction of pupils, equal size. NOSE: Clear with pink turbinates. THROAT: No erythema or exudates. NECK: No masses, no JVD. CHEST: No chest wall deformity. LUNGS: Equal air entry with faint crackles in the posterior bases. CVS: S1 and S2 normal with no audible murmur, regular rhythm. ABDOMEN: No hepatosplenomegaly, normal bowel sounds, no guarding or rigidity. SPINE: No scoliosis or deformity SKIN: No rashes CENTRAL NERVOUS SYSTEM: No focal deficits, tone is normal in all 4 extremities. EXTREMITIES: There is no peripheral edema. No clubbing, no cyanosis. Peripheral pulses are intact. - Labs CBC & Chem 7: 10/22/22 04:42 10/22/22 04:42 Labs: Abnormal Lab Results - Last 24 Hours (Table) 10/21/22 10/21/22 10/21/22 Range/Units 11:46 16:14 20:44 RBC (4.10-5.20) X 10*6/uL Hgb (12.0-15.0) g/dL Hct (37.2-46.3) % MCH (27.0-32.0) pg Immature Gran # (0.00-0.04) X 10*3/uL Lymphocytes # (0.90-5.00) X 10*3/uL Eosinophils # (0.04-0.35) X 10*3/uL BUN (9.0-27.0) mg/dL Est GFR (CKD-EPI)NonAf (60.0-200.0) BUN/Creatinine Ratio (12.00-20.00) Ratio Glucose (70-110) mg/dL POC Glucose (mg/dL) 249 H 262 H (70-110) mg/dL Total Bilirubin (0.30-1.20) mg/dL AST (13-35) U/L ALT (8-44) U/L Total Protein (6.2-8.2) g/dL Albumin (3.8-4.9) g/dL Albumin/Globulin Ratio (1.60-3.17) g/dL Procalcitonin 0.98 H (0.02-0.09) ng/mL 10/22/22 10/22/22 10/22/22 Range/Units 04:42 04:42 05:26 RBC 3.54 L (4.10-5.20) X 10*6/uL Hgb 11.4 L (12.0-15.0) g/dL Hct 34.1 L (37.2-46.3) % MCH 32.2 H (27.0-32.0) pg Immature Gran # 0.18 H (0.00-0.04) X 10*3/uL Lymphocytes # 0.38 L (0.90-5.00) X 10*3/uL Eosinophils # 0 L (0.04-0.35) X 10*3/uL BUN 29.7 H (9.0-27.0) mg/dL Est GFR (CKD-EPI)NonAf 58.2 L (60.0-200.0) BUN/Creatinine Ratio 29.70 H (12.00-20.00) Ratio Glucose 312 H (70-110) mg/dL POC Glucose (mg/dL) 312 H (70-110) mg/dL Total Bilirubin <0.15 L (0.30-1.20) mg/dL AST 57 H (13-35) U/L ALT 105 H (8-44) U/L Total Protein 5.6 L (6.2-8.2) g/dL Albumin 3.4 L (3.8-4.9) g/dL Albumin/Globulin Ratio 1.55 L (1.60-3.17) g/dL Procalcitonin (0.02-0.09) ng/mL Assessment and Plan Assessment: Generalized weakness especially in the lower extremities of unclear etiology. Lumbar spine CT negative for acute process. Dopplers of lower extremity negative for DVT Hypotension, recovered and now having issues with hypertension Urinary tract infection ruled out, currently on ceftriaxone and pro-calcitonin 0.98 History of left lung partial lobectomy for suspected tuberculosis however was told just scarring. This was done many years ago at [facility] [place]. Consider chronic pul monary fibrosis with emphysema (CPFE) Chronic obstructive pulmonary disease Former smoker History of fibromyalgia Hypertension, history of Hyperlipidemia History of anxiety/depression Plan: The patient was seen and evaluated Medications and labs reviewed Stable and on room air Continue the current treatment plan Increase her activity as tolerated Plan for follow-up in our office for PFTs We will continue to follow I have personally seen and examined the patient, performed the documentation and the assessment and plan as written. Number of minutes spent on the visit: 10.
--- NOTE | 2022-10-22 11:54 | PN ---
PROGRESS NOTE Gianna Dale came in with lactic acidosis, bilateral leg weakness, hypomagnesemia which has been replaced. She came in with prerenal azotemia. Her hemoglobin is 11.4, her sugars in the 200s to 300s. GFR is 58, BUN is 29, creatinine is 1.0, magnesium is 1.9. Procalcitonin was high at 0.98. Magnesium is 1.9, normal is 1.5 to 2.4. She will get moving more with physical therapy. She is being treated for COPD exacerbation, continue that treatment with Pulmonology, continue to ambulate. We will get Neurology to see her for leg weakness because she still has leg weakness. She has bad COPD. She wears 2 L oxygen at night. History of pulmonary fibrosis. Her blood pressure is going up. She has been rehydrated. We have to restart her home blood pressure medications today. We got her on antibiotics for possible UTI, waiting for urine culture. She had high procalcitonin levels as mentioned above. She may have some bronchitis or COPD, needing antibiotics for high procalcitonin. Please see Pulmonary orders. PROGNOSIS: Guarded. PT, OT, ambulate, possible home soon. MMODL / IJN: [id number] /
--- NOTE | 2022-10-22 12:17 | CT ---
EXAMINATION TYPE: CT hip RT wo con CT DLP: 457 mGycm, Automated exposure control for dose reduction was used. DATE OF EXAM: 10/22/2022 12:04 PM COMPARISON: None CLINICAL INDICATION:Female, 66 years old with history of rule out fracture; PHH, Right hip and anteri or thigh pain TECHNIQUE: Axial images were obtained of the right hip without the use of IV contrast. Additional co shayy and sagittal reformatted images and soft tissue and bone window were obtained for review. FINDINGS: There is no evidence of fracture, subluxation, or dislocation. No significant soft tissue. Trace joint effusion. Mild medial joint space narrowing with subchondral cystic change is spurring i nvolving the right hip. No focal muscular atrophy or edema is identified. No radiopaque foreign body identified. Vascular calcifications. IMPRESSION: 1. No acute fracture. 2. Mild osteoarthritic changes of the right hip.
[2022-10-22 17:04] LABS: Glucose,Whole Blood 280 mg/dL (70-110)
[2022-10-22] MEDS: amLODIPine 5 MG TAB PO SCH (20:54)
[2022-10-22 20:57] LABS: Glucose,Whole Blood 278 mg/dL (70-110)
[2022-10-23] MEDS: methylPREDNISolone SOD SUCCI 125 MG/2 ML VIAL IV SCH ×4 (00:20→17:35)
[2022-10-23 06:26] LABS: Glucose,Whole Blood 191 mg/dL (70-110)
[2022-10-23] MEDS: INSULIN ASPART (NovoLOG) 100 UNIT/ML VIAL SQ SCH ×4 (06:32→19:42)
[2022-10-23] MEDS: PANTOPRAZOLE 40 MG TABLET PO SCH ×2 (06:32→17:43)
[2022-10-23] MEDS ORDERED: hydrALAZINE HCL 20 MG/ML 1 ML VIAL IVP PRN (06:33)
[2022-10-23] MEDS: INSULIN DETEMIR (LEVEMIR) 100 UNIT/ML SYR SQ SCH (08:04)
[2022-10-23] MEDS: clonazePAM 1 MG TAB PO SCH ×3 (08:04→19:40)
[2022-10-23] MEDS: atenoloL 50 MG TAB PO SCH ×2 (08:05→19:40)
[2022-10-23] MEDS: MAGNESIUM OXIDE 400 MG TAB PO SCH ×2 (08:05→19:40)
[2022-10-23] MEDS: CLOPIDOGREL 75 MG TAB PO SCH (08:05)
[2022-10-23] MEDS: SERTRALINE 100 MG TAB PO SCH (08:05)
[2022-10-23] MEDS: hydrALAZINE HCL 50 MG TAB PO SCH ×2 (08:05→19:40)
[2022-10-23] MEDS: ASPIRIN 81 MG PO SCH (08:15)
[2022-10-23] MEDS: MULTIVITAMINS, THERA 1 EACH TAB PO SCH (08:15)
[2022-10-23] MEDS: HYDROcodone/APAP 7.5-325MG 1 EACH TAB PO PRN ×2 (09:13→19:45)
[2022-10-23] MEDS: IPRATROPIUM-ALBUTEROL 3 ML NEB INHALATION SCH ×4 (10:08→20:58)
[2022-10-23] MEDS: BUDESONIDE 1 MG/2 ML NEBU INHALATION SCH ×2 (10:08→20:54)
[2022-10-23] MEDS: FORMOTEROL FUMARATE 20 MCG/2 ML NEBU INHALATION SCH ×2 (10:09→20:58)
[2022-10-23 11:41] LABS: Glucose,Whole Blood 304 mg/dL (70-110)
--- NOTE | 2022-10-23 12:05 | P.PN ---
Subjective Patient is seen in follow-up for acute kidney injury. Renal function back to baseline. No vomiting or diarrhea. Oral intake is good. No active complaints. Vital signs are stable. General: No acute distress. HEENT: Head exam is unremarkable. LUNGS: No audible rhonchi or wheezes. HEART: Rate and Rhythm are regular. ABDOMEN: Nontender. EXTREMITITES: No edema. Objective - Vital Signs Vital signs: Vital Signs Temp 97.9 F 10/23/22 08:00 Pulse 68 10/23/22 10:23 Resp 19 10/23/22 08:00 BP 164/77 10/23/22 08:00 Pulse Ox 99 10/23/22 10:12 FiO2 Intake & Output 10/22/22 10/23/22 10/23/22 18:59 06:59 18:59 Intake Total 1730 240 Output Total 1 Balance 1730 240 -1 Intake: Oral 1730 240 Output: Urine 1 Other: Voiding Method Toilet # Voids 3 3 # Bowel Movements 1 - Labs CBC & Chem 7: 10/22/22 04:42 10/22/22 04:42 Labs: Abnormal Lab Results - Last 24 Hours (Table) 10/22/22 10/22/22 10/22/22 Range/Units 04:42 16:53 20:56 POC Glucose (mg/dL) 280 H 278 H (70-110) mg/dL Procalcitonin 0.49 H (0.02-0.09) ng/mL 10/23/22 10/23/22 Range/Units 06:25 11:40 POC Glucose (mg/dL) 191 H 304 H (70-110) mg/dL Procalcitonin (0.02-0.09) ng/mL Assessment and Plan Plan: Assessment: 1. Acute kidney injury secondary to ATN secondary to hypotension. No hydronephrosis noted on kidney ultrasound. Pyuria noted on UA. 1+ protein possibly from underlying diabetic kidney disease. Further workup outpatient. 2. Hypotension secondary to hypovolemia. Cortisol level not low. Now hypotensive. Exacerbated by steroids. 3. Diabetes mellitus. Plan: Off IV fluids. Home antihypertensives resumed. Increase dose of hydralazine and maintain when necessary hydralazine. Follow up outpatient 1 week post discharge.
--- NOTE | 2022-10-23 12:55 | P.PN ---
Subjective Progress Note Date: 10/23/22 Principal diagnosis: Shortness of breath. This is a pleasant 66-year-old female with a history of anxiety/panic disorder, coronary artery disease with previous stent placements, hypertension, hyperlipidemia, fibromyalgia, partial left lower lobectomy done many years ago. She does have a history of chronic obstructive pulmonary disease and is a former smoker. He presented here to the emergency room on 10/18/2022 with progressive weakness of her lower extremities and hypotension. Chest x-ray reveals prominence of the pulmonary interstitium reflecting suspected fibrosis. CT angiogram revealed a markedly limited exam due to motion artifact. There was cardiomegaly and findings suggestive of pulmonary fibrosis. No obvious central pulmonary embolism. Computed tomography scan of the lumbar spine revealed no acute process. Doppler of the lower extremities were negative for DVT. She is seen today in consultation on the regular medical floor. Awake and alert in no acute distress. Maintaining O2 saturations in the 90s on room air. She's afebrile. Blood pressure 146/69. Denies any dizziness or lightheadedness. Up ambulating in her room. White count 9.2. Hemoglobin 11.4. Platelets 171. Sodium 139. Potassium 3.5. BUN 30. Creatinine 1.4. Glucose 216. Urine positive for bacteria and elevated white count. Urine culture pending. She's been initiated on DuoNeb inhalations, Pulmicort and Perforomist inhalations, IV Solu-Medrol. Normal saline at 75 ML's per hour. Antibiotics in the form of ceftriaxone. The patient is seen today 10/21/2022 in follow-up on the regular medical floor. She is resting comfortably in bed. Maintaining good O2 saturations in the 90s on 2 L/m per nasal cannula. Normal saline at 75 ML's per hour. She is continued on DuoNeb inhalations, Pulmicort and Perforomist inhalations, IV Solu- Medrol. Urine culture revealed no growth. Blood sugar 246. Remains on antibiotics in the form of ceftriaxone. The patient is seen today 10/22/2022 in follow-up on the regular medical floor. She is sitting up in bed. Maintaining good O2 saturations in the 90s on room air. Normal saline at 10 MLS per hour. She is continued on DuoNeb inhalations, Pulmicort and Perforomist inhalations, IV Solu-Medrol. Antibiotics in the form of ceftriaxone. Procalcitonin 0.9. White count 8.0. Hemoglobin 11.4. Platelets 199. Sodium 138. Potassium 3.9. Bicarb 23. BUN 29. Creatinine 1.0. Glucose 312. AST 57. ALT 105. She is having ongoing issues with hypertension and lower extremity weakness. Progress note dated 10/23/2022. The patient is seen today in room 480. She's between room air and 2 L. From the pulmonary standpoint, she is feeling much better. She's not receiving any IV fluids. She denies any worsening shortness of breath, cough, wheezing, or chest tightness. She will follow with me in the office, for complete pulmonary function tests, so that we can better identify her lung disease. Today's glucose 304. No additional labs are noted. No additional x-rays at this time. Objective - Vital Signs Vital signs: Vital Signs Temp 97.9 F 10/23/22 08:00 Pulse 68 10/23/22 10:23 Resp 19 10/23/22 08:00 BP 167/77 10/23/22 10:28 Pulse Ox 99 10/23/22 10:12 FiO2 Intake & Output 10/22/22 10/23/22 10/23/22 18:59 06:59 18:59 Intake Total 1730 240 Output Total 1 Balance 1730 240 -1 Intake: Oral 1730 240 Output: Urine 1 Other: Voiding Method Toilet # Voids 3 3 # Bowel Movements 1 - Exam No acute distress, oriented 3. Currently on room air. Saturations are 94%. HEENT examination is grossly unremarkable. Mucous membranes are moist. No oral lesions. Neck supple. Full range of motion. No adenopathy thyromegaly or neck vein distention. Cardiovascular examination reveals regular rhythm rate. S1-S2 normal. No S3 or S4. No discernible murmur noted. Heart rate is 68 bpm. Heart sounds are bit distant. Lungs reveal scattered rhonchi. No wheezes or crackles. Breath sounds equal bilaterally. Saturations are mid to high 90s. Abdomen soft bowel sounds are heard. No masses or tenderness. Extremities are intact. No cyanosis clubbing or edema. Skin is without rash or lesion. Neurologic examination is brief but nonfocal. - Labs CBC & Chem 7: 10/22/22 04:42 10/22/22 04:42 Labs: Abnormal Lab Results - Last 24 Hours (Table) 10/22/22 10/22/22 10/22/22 Range/Units 04:42 16:53 20:56 POC Glucose (mg/dL) 280 H 278 H (70-110) mg/dL Procalcitonin 0.49 H (0.02-0.09) ng/mL 10/23/22 10/23/22 Range/Units 06:25 11:40 POC Glucose (mg/dL) 191 H 304 H (70-110) mg/dL Procalcitonin (0.02-0.09) ng/mL Assessment and Plan Assessment: Generalized weakness especially in the lower extremities of unclear etiology. Lumbar spine CT negative for acute process. Dopplers of lower extremity negative for DVT. Hypotension, recovered and now having issues with hypertension. Urinary tract infection ruled out, currently on ceftriaxone and pro-calcitonin 0.98. History of left lung partial lobectomy for suspected tuberculosis however was told just scarring. This was done many years ago at [facility] [place]. Consider chronic pulm onary fibrosis with emphysema (CPFE). Chronic obstructive pulmonary disease. Former smoker. History of fibromyalgia. Hypertension, history of. Hyperlipidemia. History of anxiety/depression. Plan: Plan dated 10/23/2022. The patient is seen and examined, and room 480. She is either on 2 L her room air. Saturations are excellent. We'll continue with the current regimen. The patient's been complaining of elevated blood pressures. The primary service and nephrology are working on that. No additional recommendations from my perspective at this time. The sneed for this patient in my opinion his see me in the office, and do a complete pulmonary function testing, so we can determine exactly what her lung disease is. I think she may have chronic pulmonary fibrosis with emphysema. This is a condition in smokers in which they have upper lobe centrilobular emphysema and lower lobe pulmonary fibrosis. Time with Patient: Less than 30
[2022-10-23 15:29] LABS: % Iron Saturation 56.97 (12.00-45.00)
[2022-10-23 16:54] LABS: Glucose,Whole Blood 162 mg/dL (70-110)
[2022-10-23] MEDS ORDERED: ENOXAPARIN 60 MG/0.6 ML SYRINGE SQ SCH (19:00)
[2022-10-23] MEDS: ENOXAPARIN 40 MG/0.4 ML SYRINGE SQ SCH (19:40)
[2022-10-23] MEDS: amLODIPine 5 MG TAB PO SCH (19:40)
[2022-10-23 19:44] LABS: Glucose,Whole Blood 185 mg/dL (70-110)
--- NOTE | 2022-10-23 23:58 | CT ---
EXAMINATION TYPE: CT abdomen pelvis wo con DATE OF EXAM: 10/23/2022 COMPARISON: 10/22/2022 INDICATION: right flank pain DLP: 797 mGycm, Automated exposure control for dose reduction was used. CONTRAST: 0 mL of Isovue 300. Study performed without Oral Contrast TECHNIQUE: Axial images were obtained from above the diaphragm to the pubic rami in the axial plane a t 5 mm thick sections. Reconstructed images are reviewed on the computer in the coronal plane. FINDINGS: Limited CT sections are obtained the lung bases. The lung bases are clear. CT ABDOMEN: Liver: Normal Spleen: Normal Pancreas: Some fatty infiltration appears to be in the head of the pancreas. Minimal inflammatory jose nge immediately adjacent. Correlate for mild pancreatitis. Adrenal glands: The adrenal glands are normal. Gallbladder: Normal Kidneys: No masses are evident. No hydronephrosis is present. No cysts are present. There is a 0.2 cm calcification at the superior pole right kidney. An adjacent 0.2 cm calcification is present. [place] vascular calcifications likely present within the bilateral kidneys. Nonspecific punctate calcifica tion is the medial right kidney. Aorta: Vascular calcification is within the aorta. . Dense calcification is within the common iliac vessels. Stenosis is suspected. Inferior vena cava: Normal. CT PELVIS: Loops of bowel within the abdomen and pelvis are normal. The study is without oral contrast Limit ed bowel evaluation. Appendix: Not identified. No dilated tubular structure or inflammatory changes are evident. Urinary bladder: Normal. Genitourinary structures: Uterus is unremarkable. Adnexa are normal Osseous structures: No suspicious lytic or sclerotic lesions. Lymphadenopathy: There are some scattered lymph nodes in the peripancreatic region within the mesente ry. IMPRESSIONS: 1. Suggestion of mild inflammatory change adjacent to the inferior head of the pancreas with scattere d small nodes. Consider mild pancreatitis. 2. Couple small nonobstructing renal stones superior pole right kidney. Additional calcification with in the kidneys appears more likely to be related to calcification vessels.
[2022-10-24 06:11] LABS: Glucose,Whole Blood 95 mg/dL (70-110)
[2022-10-24] MEDS: INSULIN ASPART (NovoLOG) 100 UNIT/ML VIAL SQ SCH ×4 (06:33→21:38)
[2022-10-24] MEDS: PANTOPRAZOLE 40 MG TABLET PO SCH ×2 (06:35→17:02)
[2022-10-24] MEDS: atenoloL 50 MG TAB PO SCH ×2 (07:59→21:37)
[2022-10-24] MEDS: predniSONE 20 MG TAB PO SCH (07:59)
[2022-10-24] MEDS: SERTRALINE 100 MG TAB PO SCH (07:59)
[2022-10-24] MEDS: hydrALAZINE HCL 50 MG TAB PO SCH ×2 (07:59→21:37)
[2022-10-24] MEDS: clonazePAM 1 MG TAB PO SCH ×3 (07:59→21:37)
[2022-10-24] MEDS: INSULIN DETEMIR (LEVEMIR) 100 UNIT/ML SYR SQ SCH (08:00)
[2022-10-24] MEDS: CLOPIDOGREL 75 MG TAB PO SCH (08:00)
[2022-10-24] MEDS: ASPIRIN 81 MG PO SCH (08:00)
[2022-10-24] MEDS: ENOXAPARIN 40 MG/0.4 ML SYRINGE SQ SCH (08:00)
[2022-10-24] MEDS: MULTIVITAMINS, THERA 1 EACH TAB PO SCH (08:00)
[2022-10-24] MEDS: MAGNESIUM OXIDE 400 MG TAB PO SCH ×2 (08:00→21:37)
[2022-10-24] MEDS: HYDROcodone/APAP 7.5-325MG 1 EACH TAB PO PRN ×2 (08:13→21:35)
[2022-10-24] MEDS: IPRATROPIUM-ALBUTEROL 3 ML NEB INHALATION SCH ×4 (09:04→21:03)
[2022-10-24] MEDS: FORMOTEROL FUMARATE 20 MCG/2 ML NEBU INHALATION SCH ×2 (09:04→21:04)
[2022-10-24] MEDS: BUDESONIDE 1 MG/2 ML NEBU INHALATION SCH ×2 (09:05→21:03)
--- NOTE | 2022-10-24 10:12 | P.CNOR ---
History of Present Illness - [facility] Consult date: 10/24/22 Consult reason: joint pain (Right hip pain and right leg weakness) History of present illness: The patient is a 66 y/o female who presented to the ER with progressive weakness. Since admission, the patient states her right hip and groin have become painful. She is unable to lift her right leg due to the pain and weakness. She has to move her right leg with her hands off the bed to get out of bed. The patient states she has been ambulating with a walker around her room without much difficulty. Dr. Sosa/Khris Reardon PA-C has evaluated the patient for low back pain and recommends conservative treatment with possible MRI in the future if her pain continues. She has also noticed increased swelling in her right knee and leg since admission as well. Venous doppler negative for DVT. CT of the right hip reveals mild OA. Orthopedics was consulted for further evaluation of her right hip. Review of Systems Constitutional: Denies chills, Denies fatigue, Denies fever Cardiovascular: Denies chest pain, Denies shortness of breath Respiratory: Denies cough Gastrointestinal: Denies diarrhea, Denies nausea, Denies vomiting Musculoskeletal: right: hip pain Past Medical History Past Medical History: Coronary Artery Disease (CAD), COPD, Deep Vein Thrombosis (DVT), Fibromyalgia, GERD/Reflux, Hyperlipidemia, Hypertension, Osteoarthritis (OA), Skin Disorder Additional Past Medical History / Comment(s): DIVERTICULITIS, HX KIDNEY STONE- still has it but it's never moved , Pneumonia, ROSACEA, DVT RLE 2007,gerson cataracts, BILAT ILIAC ARTERIES BLOCKED PER PT, pulmonary fibrosis History of Any Multi-Drug Resistant Organisms: None Reported Past Surgical History: Appendectomy, Bowel Resection, Heart Catheterization With Stent, Hernia Repair, Tubal Ligation Additional Past Surgical History / Comment(s): COLONOSCOPY, PARTIAL LT LO BECTOMY-(pt stated they thought i might of had tb but it was just scar tissue), D & C, 07-17-14 BOWEL RESECTION, HEART CATH W 2 STENTS AT [facility] [place] 11-15-15 , 12-18-17 lap robotic assisted repair of inc hernia Past Anesthesia/Blood Transfusion Reactions: No Reported Reaction Date of Last Stent Placement:: 11-15-15 AT [facility] [place] Past Psychological History: Anxiety, Panic Disorder Additional Psychological History / Comment(s): PT IS INDEPENDANT-drives,LIVES WITH SPOUSE and 2 pet cats. has 3 adult children and 10 grandchildren. 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 Smoking Status: Former smoker Past Alcohol Use History: None Reported Additional Past Alcohol Use History / Comment(s): smoked since age 13 1ppd; QUIT 2008 Past Drug Use History: None Reported - Past Family History Mother Family Medical History: Congestive Heart Failure (CHF) Father Family Medical History: Cancer Additional Family Medical History / Comment(s): TYPE OF CANCER NOT KNOWN Medications and Allergies Home Medications Medication Instructions Recorded Confirmed Type clonazePAM [Clonazepam] 1 mg PO TID 02/20/14 10/18/22 History HYDROcodone/APAP 7.5-325MG [[place] 1 tab PO DAILY PRN 09/14/16 10/18/22 History 7.5-325] Rosuvastatin Calcium [Crestor] 40 mg PO DAILY 01/10/17 10/18/22 History Aspirin EC [Ecotrin Low Dose] 81 mg PO DAILY 01/27/20 10/18/22 History Clopidogrel Bisulfate [Plavix] 75 mg PO DAILY #90 tab 04/15/20 10/18/22 Rx metFORMIN HCL 500 mg PO DAILY 09/22/21 10/18/22 History Multivit-Min/Iron/Folic/Lutein 1 tab PO DAILY 06/28/22 10/18/22 History [Centrum Silver Women Tablet] Sertraline [Zoloft] 100 mg PO DAILY 06/28/22 10/18/22 History amLODIPine [Norvasc] 5 mg PO HS 06/28/22 10/18/22 History atenoloL [Tenormin] 50 mg PO DAILY 06/28/22 10/18/22 History Albuterol Sulfate [Albuterol 2 puff INHALATION RT-Q6H PRN 10/01/22 10/18/22 History Sulfate Hfa] Acetaminophen Tab [Tylenol] 650 mg PO Q6HR PRN tab 10/05/22 10/18/22 Rx Budesonide [Pulmicort] 0.5 mg INHALATION RT-BID 90 Days 10/05/22 10/18/22 Rx #180 ml Ipratropium-Albuterol Nebulize 3 ml INHALATION RT-QID 30 Days 10/05/22 10/18/22 Rx [Duoneb 0.5 mg-3 mg/3 ml Soln] #120 each Nitroglycerin Sl Tabs [Nitrostat] 0.4 mg SUBLINGUAL Q5M PRN tab 10/05/22 10/18/22 Rx Pantoprazole [Protonix] 40 mg PO AC-BID 90 Days #180 tab 10/05/22 10/18/22 Rx hydrALAZINE HCL [Apresoline] 100 mg PO BID 10/18/22 10/18/22 History Allergies Allergy/AdvReac Type Severity Reaction Status Date / Time hydrocodone bitartrate AdvReac Nausea & Verified 10/18/22 19:37 [From Vicodin] Vomiting propoxyphene napsylate AdvReac Nausea & Verified 10/18/22 19:37 [From Darvocet-N 100] Vomiting Physical Examination The patient is a 66 y/o female in no acute distress. She is alert and orientated x3. Exam of the right lower extremity reveals 2+ pitting edema to the ankle when compared to the left leg. No calf tenderness. Mild swelling to the right knee. No pain to palpation or on ROM to the right knee. No pain to log rolling of the right leg. Mild groin pain to internal and external rotation to the right hip. Moderate pain to passive flexion of the hip. No pain to the buttock or lateral hip. Neurological and circulatory status is intact. Results CT of the right hip reveals mild osteoarthritis Venous doppler negative for DVT - Labs Labs: Abnormal Lab Results - Last 24 Hours (Table) 10/22/22 10/23/22 10/23/22 Range/Units 04:42 11:40 16:47 POC Glucose (mg/dL) 304 H 162 H (70-110) mg/dL % Saturation 56.97 H (12.00-45.00) Transferrin 168.0 L (204.0-354.0) mg/dL 10/23/22 Range/Units 19:42 POC Glucose (mg/dL) 185 H (70-110) mg/dL % Saturation (12.00-45.00) Transferrin (204.0-354.0) mg/dL H & H 10/18/22 10/19/22 10/20/22 Range/Units 18:41 07:16 06:54 Hgb 13.6 D 12.1 11.4 L (11.4-16.0) gm/dL Hct 39.6 37.0 L 33.3 L (34.0-46.0) % 10/22/22 Range/Units 04:42 Hgb 11.4 L (11.4-16.0) gm/dL Hct 34.1 L (34.0-46.0) % Coagulation 10/18/22 Range/Units 18:41 INR 1.1 (<1.2) Result Diagrams: 10/22/22 04:42 10/22/22 04:42 Assessment and Plan (1) Osteoarthritis of right hip Current Visit: Yes Status: Acute Code(s): M16.11 - UNILATERAL PRIMARY OSTEOARTHRITIS, RIGHT HIP SNOMED Code(s): 816247827519913 (2) Weakness Current Visit: Yes Status: Acute Code(s): R53.1 - WEAKNESS SNOMED Code(s): 94784405 Plan: The clinical and CT findings were discussed with the patient. The case was discussed with Dr. Minaya. She should continue pain control as needed. Continue PT/OT to increase mobility. No acute surgical intervention is needed. She was instructed to follow up with Dr. Jordy Ye on an outpatient basis for further follow up if the right hip pain continues. Continue follow up for her lumbar spine with Dr. Sosa as well.
--- NOTE | 2022-10-24 10:34 | P.PN ---
Subjective Patient is seen in follow-up for acute kidney injury. Renal function back to baseline. No vomiting or diarrhea. Oral intake is good. Does admit to swelling in lower extremities. Vital signs are stable. General: No acute distress. HEENT: Head exam is unremarkable. LUNGS: No audible rhonchi or wheezes. HEART: Rate and Rhythm are regular. ABDOMEN: Nontender. EXTREMITITES: Trace edema. Objective - Vital Signs Vital signs: Vital Signs Temp 97.9 F 10/24/22 07:22 Pulse 61 10/24/22 09:13 Resp 18 10/24/22 07:56 BP 164/78 10/24/22 07:22 Pulse Ox 95 10/24/22 09:05 FiO2 Intake & Output 10/23/22 10/24/22 10/24/22 18:59 06:59 18:59 Output Total 1 Balance -1 Output: Urine 1 Other: Voiding Method Toilet # Voids 2 2 # Bowel Movements 1 - Labs CBC & Chem 7: 10/22/22 04:42 10/22/22 04:42 Labs: Abnormal Lab Results - Last 24 Hours (Table) 10/22/22 10/23/22 10/23/22 Range/Units 04:42 11:40 16:47 POC Glucose (mg/dL) 304 H 162 H (70-110) mg/dL % Saturation 56.97 H (12.00-45.00) Transferrin 168.0 L (204.0-354.0) mg/dL 10/23/22 Range/Units 19:42 POC Glucose (mg/dL) 185 H (70-110) mg/dL % Saturation (12.00-45.00) Transferrin (204.0-354.0) mg/dL Assessment and Plan Plan: Assessment: 1. Acute kidney injury secondary to ATN secondary to hypotension. No hydronephrosis noted on kidney ultrasound. Pyuria noted on UA. 1+ protein possibly from underlying diabetic kidney disease. Further workup outpatient. 2. Hypotension secondary to hypovolemia. Cortisol level not low. Now hypertensive. Exacerbated by steroids. 3. Diabetes mellitus. 4. Lower extremity edema. Plan: Off IV fluids. Add Lasix 20 mg once daily. Follow up outpatient 1 week post discharge. Repeat BMP and magnesium level 2-3 days postdischarge.
[2022-10-24 11:42] LABS: Glucose,Whole Blood 157 mg/dL (70-110)
--- NOTE | 2022-10-24 12:23 | P.PN ---
Subjective Progress Note Date: 10/24/22 This is a pleasant 66-year-old female with a history of anxiety/panic disorder, coronary artery disease with previous stent placements, hypertension, hyperlipidemia, fibromyalgia, partial left lower lobectomy done many years ago. She does have a history of chronic obstructive pulmonary disease and is a former smoker. He presented here to the emergency room on 10/18/2022 with progressive weakness of her lower extremities and hypotension. Chest x-ray reveals prominence of the pulmonary interstitium reflecting suspected fibrosis. CT angiogram revealed a markedly limited exam due to motion artifact. There was cardiomegaly and findings suggestive of pulmonary fibrosis. No obvious central pulmonary embolism. Computed tomography scan of the lumbar spine revealed no acute process. Doppler of the lower extremities were negative for DVT. She is seen today in consultation on the regular medical floor. Awake and alert in no acute distress. Maintaining O2 saturations in the 90s on room air. She's afebrile. Blood pressure 146/69. Denies any dizziness or lightheadedness. Up ambulating in her room. White count 9.2. Hemoglobin 11.4. Platelets 171. Sodium 139. Potassium 3.5. BUN 30. Creatinine 1.4. Glucose 216. Urine positive for bacteria and elevated white count. Urine culture pending. She's been initiated on DuoNeb inhalations, Pulmicort and Perforomist inhalations, IV Solu-Medrol. Normal saline at 75 ML's per hour. Antibiotics in the form of ceftriaxone. The patient is seen today 10/21/2022 in follow-up on the regular medical floor. She is resting comfortably in bed. Maintaining good O2 saturations in the 90s on 2 L/m per nasal cannula. Normal saline at 75 ML's per hour. She is continued on DuoNeb inhalations, Pulmicort and Perforomist inhalations, IV Solu-Medrol. Urine culture revealed no growth. Blood sugar 246. Remains on antibiotics in the form of ceftriaxone. The patient is seen today 10/22/2022 in follow-up on the regular medical floor. She is sitting up in bed. Maintaining good O2 saturations in the 90s on room air. Normal saline at 10 MLS per hour. She is continued on DuoNeb inhalations, Pulmicort and Perforomist inhalations, IV Solu-Medrol. Antibiotics in the form of ceftriaxone. Procalcitonin 0.9. White count 8.0. Hemoglobin 11.4. Platelets 199. Sodium 138. Potassium 3.9. Bicarb 23. BUN 29. Creatinine 1.0. Glucose 312. AST 57. ALT 105. She is having ongoing issues with hypertension and lower extremity weakness. Progress note dated 10/23/2022. The patient is seen today in room 480. She's between room air and 2 L. From the pulmonary standpoint, she is feeling much better. She's not receiving any IV fluids. She denies any worsening shortness of breath, cough, wheezing, or chest tightness. She will follow with me in the office, for complete pulmonary function tests, so that we can better identify her lung disease. Today's glucose 304. No additional labs are noted. No additional x-rays at this time. On today's evaluation of 2021, the patient is on room air oxygen. She is not complaining of any significant shortness of breath at this point in time. The patient was seen earlier by pulmonology. Doppler of the lower extremities were essentially negative for any blood clots. She has no cough or sputum production or hemoptysis at this point in time. The CAT scan of the abdomen and pelvis was also completed yesterday and it showed that the lung bases are essentially clear. There was some mild inflammatory changes adjacent to the inferior head of the pancreas which raises obviously the concern for pancreatitis. Nevertheless, the patient has no nausea or vomiting or abdominal pain. There is also couple of small nonobstructing renal stones and the superior pole of the right kidney. A CT angiogram was done on 10/18/2022 that showed no evidence of any pulmonary embolism. It was a limited CAT scan because of motion artifact. Based on the CAT scan of the chest, there may be concern of limited fibrotic changes in the lung bases. I appreciate more emphysematous changes in the upper lobe and chronic pleural thickening bilaterally. Objective - Vital Signs Vital signs: Vital Signs Temp 97.9 F 10/24/22 07:22 Pulse 61 10/24/22 09:13 Resp 18 10/24/22 07:56 BP 164/78 10/24/22 07:22 Pulse Ox 95 10/24/22 09:05 FiO2 Intake & Output 10/23/22 10/24/22 10/24/22 18:59 06:59 18:59 Output Total 1 Balance -1 Output: Urine 1 Other: Voiding Method Toilet # Voids 2 2 # Bowel Movements 1 - Exam No acute distress, oriented 3. Currently on room air. Saturations are 94%. HEENT examination is grossly unremarkable. Mucous membranes are moist. No oral lesions. Neck supple. Full range of motion. No adenopathy thyromegaly or neck vein distention. Cardiovascular examination reveals regular rhythm rate. S1-S2 normal. No S3 or S4. No discernible murmur noted. Heart rate is 68 bpm. Heart sounds are bit distant. Lungs reveal scattered rhonchi. No wheezes or crackles. Breath sounds equal bilaterally. Saturations are mid to high 90s. Abdomen soft bowel sounds are heard. No masses or tenderness. Extremities are intact. No cyanosis clubbing or edema. Skin is without rash or lesion. Neurologic examination is brief but nonfocal. - Labs CBC & Chem 7: 10/22/22 04:42 10/22/22 04:42 Labs: Abnormal Lab Results - Last 24 Hours (Table) 10/22/22 10/23/22 10/23/22 Range/Units 04:42 16:47 19:42 POC Glucose (mg/dL) 162 H 185 H (70-110) mg/dL % Saturation 56.97 H (12.00-45.00) Transferrin 168.0 L (204.0-354.0) mg/dL 10/24/22 Range/Units 11:41 POC Glucose (mg/dL) 157 H (70-110) mg/dL % Saturation (12.00-45.00) Transferrin (204.0-354.0) mg/dL Assessment and Plan Plan: Generalized weakness especially in the lower extremities of unclear etiology. Lumbar spine CT negative for acute process. Dopplers of lower extremity negative for DVT. Hypotension, recovered and now having issues with hypertension. Urinary tract infection ruled out, currently on ceftriaxone and pro-calcitonin 0.98. History of left lung partial lobectomy for suspected tuberculosis however was told just scarring. This was done many years ago at [facility] [place]. Consider chronic pulmonary fibrosis with emphysema (CPFE). Chronic obstructive pulmonary disease. Former smoker. History of fibromyalgia. Hypertension, history of. Hyperlipidemia. History of anxiety/depression. Plan: Pulmonary status is stable. Will need outpatient follow-up with us at the pulmonary clinic. No clear indication for any significant pulmonary fibrosis. There is some emphysematous change in the upper lobes bilaterally. Outpatient follow-up is recommended.
--- NOTE | 2022-10-24 13:18 | P.CNNES ---
History of Present Illness Consult date: 10/24/22 Requesting physician: Gregorio Garber Reason for Consult: Leg weakness History of Present Illness: Patient is a 66-year-old female with history of diabetes came to the hospital on 10/18/2022 for low blood pressure. Patient states that she was recently admitted to the hospital for hypertension, her medications were adjusted and sent home. However she developed low blood pressure therefore came to the hospital. Patient has mentioned that over last few months, she is noticing weakness in the legs, equally bilaterally, hard to walk. She cannot stand to do dishes because her legs hurt so bad. She denies any numbness or tingling. The pain mainly involves the groin region and anterior thigh. For quite some time s he was noticing little sharp pain in the toes of both feet mainly at night, but seems to have gone at this point. While she was in the hospital, her right leg has swollen up and it is hard to cone picker the right leg. She has to manually cone picker the right leg and moves to the side of the bed. She can stand up and can walk without issues. She is careful, has to hang onto the stuff. She denies any symptoms in the upper limbs. Patient admits to having neck pain and low back pain, which is 7-8/10, but with pain medication goes down to 3/10. Sometimes the neck and back pain can go up to 10/10. Patient also mentions that before she came to the hospital, she got up in the morning, got out of bed too fast, became dizzy and fell. Did not pass out. She states that she has to be careful, and should not stand up too fast, but that day she did and she blacked out. EKG shows sinus rhythm. Chest x-ray showed prominence of the pulmonary interstitial may reflect a degree of fibrosis. Superimposed infiltrate is difficult to exclude. Correlate clinically. CTA of the chest was markedly limited study due to motion artifact demonstrates cardiomegaly and findings suggestive of pulmonary fibrosis. CT of the lumbar spine was read as no acute process. Multilevel relatively mild degenerative disc changes but moderate in degree at the L2-L3 level.. Abdominal ultrasound showed no hydronephrosis or nephrolithiasis. Arterial Doppler showed mild to moderate peripheral arterial disease bilaterally. Bilateral venous Doppler are normal. CT of the right hip showed no acute fracture. Mild osteoarthritic changes of the right hip. CT of the abdomen and pelvis showed suggestion of mild inflammatory change adjacent to the inferior head of the pancreas with scattered small nodes. Consider mild pancreatitis. Couple small nonobstructing renal stones superior pole right kidney. Additional calcification within the kidneys appears more likely to be related to calcification vessels. She had a prior CT of the cervical spine performed on>>>>>>>>>>>>>>>>>>>>>>>>>>> Most recent blood test shows normal WBC hemoglobin 11.4, platelets are normal. Electrolytes are normal, BUN 29.7, creatinine 1.0. AST is elevated 57, ALT 105. Hemoglobin A1c 7.3 on 06/29/2022. Lipids with cholesterol 262, LDL 145, HDL 86 and triglycerides 148. Patient has history of smoking 1 pack per day since she was in high school, for about 30 years, quit 15 years ago. She drinks alcohol occasionally mainly wine. Occasionally uses marijuana. No drug use. Patient has history of diabetes for one year, for which she is on metformin. She has history of prediabetes in the past. Review of Systems Constitutional: Denies chills, Denies fever Eyes: denies blurred vision, denies pain Ears: right: decreased hearing, deny: ear discharge Ears, nose, mouth and throat: Reports headache, Reports vertigo, Denies sore throat Cardiovascular: Reports shortness of breath, Denies chest pain Respiratory: Reports excessive sputum, Denies cough Gastrointestinal: Denies abdominal pain, Denies diarrhea, Denies nausea, Denies vomiting Genitourinary: Denies dysuria, Denies hematuria, Denies mixed incontinence, Denies urinary frequency Musculoskeletal: Reports low back pain, Reports neck pain, Denies myalgias Integumentary: Denies pruritus, Denies rash Neurological: Reports as per HPI Psychiatric: Denies anxiety, Denies depression Endocrine: Reports fatigue, Reports weight change Past Medical History Past Medical History: Coronary Artery Disease (CAD), COPD, Deep Vein Thrombosis (DVT), Fibromyalgia, GERD/Reflux, Hyperlipidemia, Hypertension, Osteoarthritis (OA), Skin Disorder Additional Past Medical History / Comment(s): DIVERTICULITIS, HX KIDNEY STONE- still has it but it's never moved , Pneumonia, ROSACEA, DVT RLE 2007,gerson cataracts, BILAT ILIAC ARTERIES BLOCKED PER PT, pulmonary fibrosis History of Any Multi-Drug Resistant Organisms: None Reported Past Surgical History: Appendectomy, Bowel Resection, Heart Catheterization With Stent, Hernia Repair, Tubal Ligation Additional Past Surgical History / Comment(s): COLONOSCOPY, PARTIAL LT LOBECTOMY-(pt stated they thought i might of had tb but it was just scar tissue), D & C, 07-17-14 BOWEL RESECTION, [place] [facility] [place] 12-18-17 lap robotic assisted repair of inc hernia Past Anesthesia/Blood Transfusion Reactions: No Reported Reaction Date of Last St[place] Pl[place] [facility] [place] Psychological History: Anxiety, Panic Disorder Additional Psychological History / Comment(s): PT IS INDEPENDANT-drives,LIVES WITH SPOUSE and 2 pet cats. has 3 adult children and 10 grandchildren. 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 Smoking Status: Former smoker Past Alcohol Use History: None Reported Additional Past Alcohol Use History / Comment(s): smoked since age 13 1ppd; QUIT 2008 Past Drug Use History: None Reported - Past Family History Mother Family Medical History: Congestive Heart Failure (CHF) Father Family Medical History: Cancer Additional Family Medical History / Comment(s): TYPE OF CANCER NOT KNOWN Medications and Allergies Home Medications Medication Instructions Recorded Confirmed Type clonazePAM [Clonazepam] 1 mg PO TID 02/20/14 10/18/22 History HYDROcodone/APAP 7.5-325MG [[place] 1 tab PO DAILY PRN 09/14/16 10/18/22 History 7.5-325] Rosuvastatin Calcium [Crestor] 40 mg PO DAILY 01/10/17 10/18/22 History Aspirin EC [Ecotrin Low Dose] 81 mg PO DAILY 01/27/20 10/18/22 History Clopidogrel Bisulfate [Plavix] 75 mg PO DAILY #90 tab 04/15/20 10/18/22 Rx Multivit-Min/Iron/Folic/Lutein 1 tab PO DAILY 06/28/22 10/18/22 History [Centrum Silver Women Tablet] Sertraline [Zoloft] 100 mg PO DAILY 06/28/22 10/18/22 History amLODIPine [Norvasc] 5 mg PO HS 06/28/22 10/18/22 History Albuterol Sulfate [Albuterol 2 puff INHALATION RT-Q6H PRN 10/01/22 10/18/22 History Sulfate Hfa] Acetaminophen Tab [Tylenol] 650 mg PO Q6HR PRN tab 10/05/22 10/18/22 Rx Budesonide [Pulmicort] 0.5 mg INHALATION RT-BID 90 Days 10/05/22 10/18/22 Rx #180 ml Ipratropium-Albuterol Nebulize 3 ml INHALATION RT-QID 30 Days 10/05/22 10/18/22 Rx [Duoneb 0.5 mg-3 mg/3 ml Soln] #120 each Nitroglycerin Sl Tabs [Nitrostat] 0.4 mg SUBLINGUAL Q5M PRN tab 10/05/22 10/18/22 Rx Pantoprazole [Protonix] 40 mg PO AC-BID 90 Days #180 tab 10/05/22 10/18/22 Rx hydrALAZINE HCL [Apresoline] 100 mg PO BID 10/18/22 10/18/22 History Formoterol Fumarate [Perforomist] 20 mcg INHALATION RT-BID 90 Days 10/24/22 Rx #180 ml Furosemide [Lasix] 20 mg PO DAILY 90 Days #90 tab 10/24/22 Rx Insulin Detemir (Levemir) [Levemir] 20 unit SQ DAILY@0700 90 Days #90 10/24/22 Rx each Magnesium Oxide [Mag-Ox] 400 mg PO BID 90 Days #180 tab 10/24/22 Rx atenoloL [Tenormin] 50 mg PO BID 90 Days #180 tab 10/24/22 Rx hydrALAZINE HCL [Apresoline] 100 mg PO BID 90 Days #180 tab 10/24/22 Rx predniSONE [Deltasone] 20 mg PO DAILY 30 Days #30 tab 10/24/22 Rx Allergies Allergy/AdvReac Type Severity Reaction Status Date / Time hydrocodone bitartrate AdvReac Nausea & Verified 10/18/22 19:37 [From Vicodin] Vomiting propoxyphene napsylate AdvReac Nausea & Verified 10/18/22 19:37 [From Darvocet-N 100] Vomiting Physical Examination - Vital Signs Vital Signs: Vital Signs Temp Pulse Pulse Pulse Resp BP BP 10/24/22 09:13 61 10/24/22 09:05 62 10/24/22 07:22 97.9 F 60 18 164/78 10/24/22 02:02 97.9 F 60 15 164/80 10/23/22 22:30 165/73 10/23/22 21:10 80 10/23/22 20:55 76 10/23/22 19:16 97.9 F 72 15 197/79 10/23/22 15:00 97.9 F 75 18 166/75 10/23/22 10:28 149/49 167/77 10/23/22 10:23 68 10/23/22 10:12 70 Pulse Ox 10/24/22 09:13 10/24/22 09:05 95 10/24/22 07:22 94 L 10/24/22 02:02 95 10/23/22 22:30 10/23/22 21:10 10/23/22 20:55 10/23/22 19:16 93 L 10/23/22 15:00 94 L 10/23/22 10:28 10/23/22 10:23 10/23/22 10:12 99 Intake and Output 10/23/22 10/24/22 10/24/22 22:59 06:59 14:59 Other: # Voids 2 2 Patient is an elderly female, very pleasant in no acute distress. Patient is alert awake oriented to time place and person. Speech and language functions are normal. Patient can name and repeat very well. No aphasia or dysarthria. Attention, concentration and fund of knowledge is adequate. On cranial nerve examination, pupils are equal, round and reacting to light, visual dominguez are full on confrontation, with no neglect on double simultaneous stimulation. Extraocular muscles are intact with no nystagmus. Face is symmetric, tongue protrudes to the midline. Palatal elevation and sensation normal, hearing and shoulder shrug normal, facial sensation normal. On muscle strength testing, there is no pronator drift and the strength is normal in arms and legs distally and proximally, except right hip flexion, which is 4+ whereas the left hip flexion is 5. Patient's hip adduction, hip abduction, knee extension, ankles and toes in all directions are all normal bilaterally. Deep tendon reflexes are symbiceps 1+, brachioradialis 1+, knees 1, ankles 1 and plantars are downgoing bilaterally. Sensory to touch is equal with no neglect on double simultaneous stimulation. Cerebellar function showed no ataxia for [id number] testing. No dysdiadochokinesia. No ataxia for [id number] testing on either side. Tone and bulk of muscles normal. Gait: Patient able to walk without any difficulty. On general examination, there is no carotid bruit or murmur, S1-S2 audible. Chest is clear on consultation. Abdomen is soft nontender. No organomegaly, bowel sounds present. Peripheral pulses are present. No edema. Results - Laboratory Findings CBC and BMP: 10/22/22 04:42 10/25/22 05:41 Abnormal Lab Findings: Abnormal Labs 10/18/22 10/18/22 10/18/22 18:41 18:41 18:41 RBC Hgb Hct MCV MCH Immature Gran # Neutrophils # 8.5 H Lymphocytes # 0.2 L Monocytes # Eosinophils # D-Dimer 3.00 H Sodium 134 L Potassium 3.2 L BUN Creatinine 1.78 H Est GFR (CKD-EPI)AfAm Est GFR (CKD-EPI)NonAf BUN/Creatinine Ratio Glucose 115 H POC Glucose (mg/dL) Plasma Lactic Acid Florian Calcium 8.3 L Magnesium 1.1 L % Saturation Transferrin Total Bilirubin AST 48 H ALT 59 H Alkaline Phosphatase 130 H Total Protein Albumin Albumin/Globulin Ratio Procalcitonin Cortisol Urine Appearance Ur Specific Benkelman Urine Protein Ur Leukocyte Esterase Urine RBC Urine WBC Urine Bacteria Urine Mucus 10/18/22 10/18/22 10/19/22 18:41 21:25 07:16 RBC 3.79 L Hgb Hct 37.0 L MCV 97.6 H MCH Immature Gran # 0.05 H Neutrophils # 9.51 H Lymphocytes # 0.09 L Monocytes # 0.12 L Eosinophils # 0 L D-Dimer Sodium Potassium BUN Creatinine Est GFR (CKD-EPI)AfAm Est GFR (CKD-EPI)NonAf BUN/Creatinine Ratio Glucose POC Glucose (mg/dL) Plasma Lactic Acid Florian 3.2 H* Calcium Magnesium % Saturation Transferrin Total Bilirubin AST ALT Alkaline Phosphatase Total Protein Albumin Albumin/Globulin Ratio Procalcitonin Cortisol Urine Appearance Cloudy H Ur Specific Benkelman 1.036 H Urine Protein 1+ H Ur Leukocyte Esterase Moderate H Urine RBC 10 H Urine WBC 52 H Urine Bacteria Rare H Urine Mucus Rare H 10/19/22 10/19/22 10/19/22 07:16 07:16 11:18 RBC Hgb Hct MCV MCH Immature Gran # Neutrophils # Lymphocytes # Monocytes # Eosinophils # D-Dimer Sodium Potassium BUN Creatinine 2.0 H Est GFR (CKD-EPI)AfAm 28.5 L Est GFR (CKD-EPI)NonAf 24.6 L BUN/Creatinine Ratio 11.57 L Glucose 221 H POC Glucose (mg/dL) 243 H Plasma Lactic Acid Florian Calcium 7.5 L Magnesium % Saturation Transferrin Total Bilirubin AST ALT 54 H Alkaline Phosphatase Total Protein 5.3 L Albumin 3.2 L Albumin/Globulin Ratio 1.48 L Procalcitonin Cortisol 42.0 H Urine Appearance Ur Specific Benkel[place] Urine Protein Ur Leukocyte Esterase Urine RBC Urine WBC Urine Bacteria Urine Mucus 10/19/22 10/19/22 10/20/22 16:29 20:24 06:40 RBC Hgb Hct MCV MCH Immature Gran # Neutrophils # Lymphocytes # Monocytes # Eosinophils # D-Dimer Sodium Potassium BUN Creatinine Est GFR (CKD-EPI)AfAm Est GFR (CKD-EPI)NonAf BUN/Creatinine Ratio Glucose POC Glucose (mg/dL) 187 H 273 H 215 H Plasma Lactic Acid Florian Calcium Magnesium % Saturation Transferrin Total Bilirubin AST ALT Alkaline Phosphatase Total Protein Albumin Albumin/Globulin Ratio Procalcitonin Cortisol Urine Appearance Ur Specific Benkelman Urine Protein Ur Leukocyte Esterase Urine RBC Urine WBC Urine Bacteria Urine Mucus 10/20/22 10/20/22 10/20/22 06:54 06:54 11:39 RBC 3.55 L Hgb 11.4 L Hct 33.3 L MCV MCH 32.1 H Immature Gran # 0.08 H Neutrophils # 8.50 H Lymphocytes # 0.28 L Monocytes # Eosinophils # 0 L D-Dimer Sodium Potassium BUN 30.4 H Creatinine Est GFR (CKD-EPI)AfAm 44.2 L Est GFR (CKD-EPI)NonAf 38.1 L BUN/Creatinine Ratio 21.41 H Glucose 216 H POC Glucose (mg/dL) 338 H Plasma Lactic Acid Florian Calcium 8.2 L Magnesium % Saturation Transferrin Total Bilirubin AST ALT 52 H Alkaline Phosphatase Total Protein 5.5 L Albumin 3.3 L Albumin/Globulin Ratio 1.48 L Procalcitonin Cortisol Urine Appearance Ur Specific [place] Urine Protein Ur Leukocyte Esterase Urine RBC Urine WBC Urine Bacteria Urine Mucus 10/20/22 10/20/22 10/21/22 16:54 20:16 06:26 RBC Hgb Hct MCV MCH Immature Gran # Neutrophils # Lymphocytes # Monocytes # Eosinophils # D-Dimer Sodium Potassium BUN Creatinine Est GFR (CKD-EPI)AfAm Est GFR (CKD-EPI)NonAf BUN/Creatinine Ratio Glucose POC Glucose (mg/dL) 115 H 302 H 307 H Plasma Lactic Acid Florian Calcium Magnesium % Saturation Transferrin Total Bilirubin AST ALT Alkaline Phosphatase Total Protein Albumin Albumin/Globulin Ratio Procalcitonin Cortisol Urine Appearance Ur Specific [place] Urine Protein Ur Leukocyte Esterase Urine RBC Urine WBC Urine Bacteria Urine Mucus 10/21/22 10/21/22 10/21/22 11:24 11:46 16:14 RBC Hgb Hct MCV MCH Immature Gran # Neutrophils # Lymphocytes # Monocytes # Eosinophils # D-Dimer Sodium Potassium BUN Creatinine Est GFR (CKD-EPI)AfAm Est GFR (CKD-EPI)NonAf BUN/Creatinine Ratio Glucose POC Glucose (mg/dL) 246 H 249 H Plasma Lactic Acid Florian Calcium Magnesium % Saturation Transferrin Total Bilirubin AST ALT Alkaline Phosphatase Total Protein Albumin Albumin/Globulin Ratio Procalcitonin 0.98 H Cortisol Urine Appearance Ur Specific [place] Urine Protein Ur Leukocyte Esterase Urine RBC Urine WBC Urine Bacteria Urine Mucus 10/21/22 10/22/22 10/22/22 20:44 04:42 04:42 RBC 3.54 L Hgb 11.4 L Hct 34.1 L MCV MCH 32.2 H Immature Gran # 0.18 H Neutrophils # Lymphocytes # 0.38 L Monocytes # Eosinophils # 0 L D-Dimer Sodium Potassium BUN 29.7 H Creatinine Est GFR (CKD-EPI)AfAm Est GFR (CKD-EPI)NonAf 58.2 L BUN/Creatinine Ratio 29.70 H Glucose 312 H POC Glucose (mg/dL) 262 H Plasma Lactic Acid Florian Calcium Magnesium % Saturation Transferrin Total Bilirubin <0.15 L AST 57 H ALT 105 H Alkaline Phosphatase Total Protein 5.6 L Albumin 3.4 L Albumin/Globulin Ratio 1.55 L Procalcitonin Cortisol Urine Appearance Ur Specific [place] Urine Protein Ur Leukocyte Esterase Urine RBC Urine WBC Urine Bacteria Urine Mucus 10/22/22 10/22/22 10/22/22 04:42 04:42 05:26 RBC Hgb Hct MCV MCH Immature Gran # Neutrophils # Lymphocytes # Monocytes # Eosinophils # D-Dimer Sodium Potassium BUN Creatinine Est GFR (CKD-EPI)AfAm Est GFR (CKD-EPI)NonAf BUN/Creatinine Ratio Glucose POC Glucose (mg/dL) 312 H Plasma Lactic Acid Florian Calcium Magnesium % Saturation 56.97 H Transferrin 168.0 L Total Bilirubin AST ALT Alkaline Phosphatase Total Protein Albumin Albumin/Globulin Ratio Procalcitonin 0.49 H Cortisol Urine Appearance Ur Specific [place] Urine Protein Ur Leukocyte Esterase Urine RBC Urine WBC Urine Bacteria Urine Mucus 10/22/22 10/22/22 10/22/22 11:44 16:53 20:56 RBC Hgb Hct MCV MCH Immature Gran # Neutrophils # Lymphocytes # Monocytes # Eosinophils # D-Dimer Sodium Potassium BUN Creatinine Est GFR (CKD-EPI)AfAm Est GFR (CKD-EPI)NonAf BUN/Creatinine Ratio Glucose POC Glucose (mg/dL) 183 H 280 H 278 H Plasma Lactic Acid Florian Calcium Magnesium % Saturation Transferrin Total Bilirubin AST ALT Alkaline Phosphatase Total Protein Albumin Albumin/Globulin Ratio Procalcitonin Cortisol Urine Appearance Ur Specific [place] Urine Protein Ur Leukocyte Esterase Urine RBC Urine WBC Urine Bacteria Urine Mucus 10/23/22 10/23/22 10/23/22 06:25 11:40 16:47 RBC Hgb Hct MCV MCH Immature Gran # Neutrophils # Lymphocytes # Monocytes # Eosinophils # D-Dimer Sodium Potassium BUN Creatinine Est GFR (CKD-EPI)AfAm Est GFR (CKD-EPI)NonAf BUN/Creatinine Ratio Glucose POC Glucose (mg/dL) 191 H 304 H 162 H Plasma Lactic Acid Florian Calcium Magnesium % Saturation Transferrin Total Bilirubin AST ALT Alkaline Phosphatase Total Protein Albumin Albumin/Globulin Ratio Procalcitonin Cortisol Urine Appearance Ur Specific [place] Urine Protein Ur Leukocyte Esterase Urine RBC Urine WBC Urine Bacteria Urine Mucus 10/23/22 19:42 RBC Hgb Hct MCV MCH Immature Gran # Neutrophils # Lymphocytes # Monocytes # Eosinophils # D-Dimer Sodium Potassium BUN Creatinine Est GFR (CKD-EPI)AfAm Est GFR (CKD-EPI)NonAf BUN/Creatinine Ratio Glucose POC Glucose (mg/dL) 185 H Plasma Lactic Acid Florian Calcium Magnesium % Saturation Transferrin Total Bilirubin AST ALT Alkaline Phosphatase Total Protein Albumin Albumin/Globulin Ratio Procalcitonin Cortisol Urine Appearance Ur Specific Benkel[place] Urine Protein Ur Leukocyte Esterase Urine RBC Urine WBC Urine Bacteria Urine Mucus Assessment and Plan Assessment: * Right groin and anterior thigh pain, unclear etiology. Examination is normal except for mild weakness of the hip flexion, with normal hip adduction and abduction and rest of the muscle strength of lower limbs. Reflexes are slightly hypoactive, but symmetric. Exact cause is uncertain, rule out diabetic plexopathy versus hip related dysfunction. CT of the hip revealed mild arthritis without significant pathology. * Right leg swelling, mild degree, unclear etiology. * Hypertension * Diabetes * Hyperlipidemia * Acute kidney injury, improving * Obesity * X tobacco use * Possible pulmonary fibrosis. Plan: * Patient had essentially normal CT of cervical and lumbar spines performed recently. * We will check ESR, B12, folate, A1c and MMA. TSH is normal. * Orthopedic spine also on board recommending medical management at this time. They are recommending follow-up in their office, and if symptoms persisting, may need an MRI of the lumbar spine. * Agree with starting PT, OT. * Consider anti-inflammatory medication if no contraindications. * May consider EMG and nerve conduction of right lower extremity as an outpatient. * Neurology will follow clinically. Thank you for the consult.
[2022-10-24] MEDS: FUROSEMIDE 20 MG TAB PO SCH (13:26)
[2022-10-24 16:46] LABS: Glucose,Whole Blood 163 mg/dL (70-110)
[2022-10-24 20:55] LABS: Glucose,Whole Blood 173 mg/dL (70-110)
[2022-10-24] MEDS: amLODIPine 5 MG TAB PO SCH (21:35)
--- NOTE | 2022-10-24 23:58 | PN ---
PROGRESS NOTE Gianna is concerned her right leg is not moving good. She is unsure why. . We are going to do an ultrasound to rule out DVT. We will get orthopedic surgeon to see her to see why her right leg is not moving. Pulmonary and Renal cleared her for discharge, but unable to move her right leg where we will get Neurology consult to see why. We will stop her steroids and take her to oral steroids. Blood pressure is high today - 140s to 190s over 40s to 70s, 93 on 2 L of oxygen, temperature 97.9, pulse 70 to 80, respiratory rate 16 to 18. Abdominal and pelvic CT that was ordered tonight shows no masses. No hydronephrosis. Some calcifications in the kidneys. Mild inflammatory changes inferior head of the pancreas. Possible mild pancreatitis with nonobstructive renal stones. Will wait for Neurology to figure out why her right leg does not move. We will get another ultrasound of the leg tonight. Prognosis is guarded. We will have to increase her blood pressure medicine. Sugars are still high, but some less due to IV steroids which were switched to oral. Continue current treatment. Prognosis guarded. MMODL / IJN: [id number] /
[2022-10-25] MEDS: ACETAMINOPHEN TAB 325 MG TAB PO PRN (02:44)
[2022-10-25 05:49] LABS: Glucose,Whole Blood 98 mg/dL (70-110)
[2022-10-25] MEDS: INSULIN ASPART (NovoLOG) 100 UNIT/ML VIAL SQ SCH (05:56)
[2022-10-25] MEDS: PANTOPRAZOLE 40 MG TABLET PO SCH (05:57)
[2022-10-25] MEDS: HYDROcodone/APAP 7.5-325MG 1 EACH TAB PO PRN (05:57)
--- NOTE | 2022-10-25 06:01 | PN ---
PROGRESS NOTE Orthopedics has seen her. Neurology has seen her for possible lumbar disk disease, possible outpatient study with an MRI, possibly epidural shot as an outpatient. She remains on Plavix for recent coronary artery disease, Tenormin for blood pressure, Norvasc for blood pressure, DuoNeb for breathing treatments, O2 with 2-3 L at night, hydralazine 100 b.i.d. for hypertension. PT/OT is being done for right leg weakness. Magnesium has been ordered and been replaced. Dehydration and lactic acidosis has been treated. She is on sodium bicarb for this also. She is on Zoloft for depression, Protonix for GERD, Mag oxide for hypomagnesemia, Levemir for diabetes. Metformin has been discontinued. She will be discharged home. Possibly go home tomorrow to follow up as an outpatient with PT and OT. Condition guarded. Follow up as an outpatient with Dr. Garber in a week. MMODL / IJN: [id number] /
[2022-10-25 07:02] LABS: African American GFR (CKD) 79 (>60 ml/min/1.73 sqM); Anion Gap 7 mmol/L; Blood Urea Nitrogen 26 mg/dL (7-17); Calcium 8.4 mg/dL (8.4-10.2); Carbon Dioxide 28 mmol/L (22-30); Chloride 102 mmol/L (98-107); Glucose 85 mg/dL (74-99); Non-African American GFR(CKD) 69 (>60 ml/min/1.73 sqM); Potassium 3.8 mmol/L (3.5-5.1); Sodium 137 mmol/L (137-145)
[2022-10-25 08:59] VITALS: BP 110/64; PULSE 68; RESP 16; TEMP 98.3
[2022-10-25] MEDS: BUDESONIDE 1 MG/2 ML NEBU INHALATION SCH (09:15)
[2022-10-25] MEDS: IPRATROPIUM-ALBUTEROL 3 ML NEB INHALATION SCH (09:16)
[2022-10-25] MEDS: FORMOTEROL FUMARATE 20 MCG/2 ML NEBU INHALATION SCH (09:16)
[2022-10-25] MEDS: ENOXAPARIN 40 MG/0.4 ML SYRINGE SQ SCH (09:40)
[2022-10-25] MEDS: ASPIRIN 81 MG PO SCH (09:41)
[2022-10-25] MEDS: FUROSEMIDE 20 MG TAB PO SCH (09:41)
[2022-10-25] MEDS: SERTRALINE 100 MG TAB PO SCH (09:41)
[2022-10-25] MEDS: CLOPIDOGREL 75 MG TAB PO SCH (09:41)
[2022-10-25] MEDS: INSULIN DETEMIR (LEVEMIR) 100 UNIT/ML SYR SQ SCH (09:41)
[2022-10-25] MEDS: predniSONE 20 MG TAB PO SCH (09:41)
[2022-10-25] MEDS: atenoloL 50 MG TAB PO SCH (09:41)
[2022-10-25] MEDS: MAGNESIUM OXIDE 400 MG TAB PO SCH (09:41)
[2022-10-25] MEDS: MULTIVITAMINS, THERA 1 EACH TAB PO SCH (09:41)
[2022-10-25] MEDS: clonazePAM 1 MG TAB PO SCH (09:41)
[2022-10-25] MEDS: hydrALAZINE HCL 50 MG TAB PO SCH (09:42)
--- NOTE | 2022-10-25 12:40 | P.PN ---
Subjective Patient is seen in follow-up for acute kidney injury. Renal function back to baseline. No vomiting or diarrhea. Oral intake is good. Edema improved. Vital signs are stable. General: No acute distress. HEENT: Head exam is unremarkable. LUNGS: No audible rhonchi or wheezes. HEART: Rate and Rhythm are regular. ABDOMEN: Nontender. EXTREMITITES: Trace edema. Objective - Vital Signs Vital signs: Vital Signs Temp 98.3 F 10/25/22 07:53 Pulse 68 10/25/22 07:53 Resp 16 10/25/22 07:53 BP 110/64 10/25/22 07:53 Pulse Ox 95 10/25/22 07:53 FiO2 Intake & Output 10/24/22 10/25/22 10/25/22 18:59 06:59 18:59 Intake Total 1080 Balance 1080 Intake: Oral 1080 Other: Voiding Method Toilet # Voids 3 3 - Labs CBC & Chem 7: 10/22/22 04:42 10/25/22 05:41 Labs: Abnormal Lab Results - Last 24 Hours (Table) 10/24/22 10/24/22 10/24/22 Range/Units 12:55 12:55 16:45 BUN (7-17) mg/dL POC Glucose (mg/dL) 163 H (70-110) mg/dL Hemoglobin A1c 7.7 H (0.0-6.0) % Vitamin B12 955.0 H (200.0-944.0) pg/mL 10/24/22 10/25/22 Range/Units 20:53 05:41 BUN 26 H (7-17) mg/dL POC Glucose (mg/dL) 173 H (70-110) mg/dL Hemoglobin A1c (0.0-6.0) % Vitamin B12 (200.0-944.0) pg/mL Assessment and Plan Plan: Assessment: 1. Acute kidney injury secondary to ATN secondary to hypotension. No hydronephrosis noted on kidney ultrasound. Pyuria noted on UA. 1+ protein possibly from underlying diabetic kidney disease. Further workup outpatient. 2. Hypotension secondary to hypovolemia. Cortisol level not low. Then was hypertensive. Exacerbated by steroids. Controlled this morning. 3. Diabetes mellitus. 4. Lower extremity edema. Improved with Lasix. Plan: Maintain oral Lasix. Follow up outpatient 1 week post discharge. Repeat BMP and magnesium level 2-3 days postdischarge.
--- NOTE | 2022-10-26 23:51 | CDI ---
Documentation Clarification Form Date: 10/26/2022 11:32:45 PM From: Sherie Butler Phone: Admit Date: 10/18/2022 9:29:00 PM Patient Name: Gianna Dale Visit Number: [id number] Discharge Date: 10/25/2022 11:32:00 AM ATTENTION: The Clinical Documentation Specialists (CDI) and [facility] Coding Staff appreciate your assistance in clarifying documentation. Please respond to the clarification below the line at the bottom and electronically sign. The CDI & [facility] Coding staff will review the response and follow-up if needed. Please note: Queries are made part of the Legal Health Record. If you have any questions, please contact the author of this message via ITS. Dr. Faizan Reynolds Diabetic kidney disease is documented Progress Note 10/23/22. Additional clarification regarding the stage of CKD is requested. History/Risk Factors: 66yo F, ATNd/thypotension, DMII w kidney disease (Pyurianoted on UA. 1+ protein), hypotensiond/t hypovolemia, HTN exacerbated by steroids, BLE edema Clinical Indicators: Current BUN: 10/18 17 10/19 23.6 10/20 30.4 10/22 29.7 Creatinine: 10/18 1.78 10/19 2.0 10/20 1.4 10/22 1.0 BUN/Creat Ratio (Ratio): 10/19 11.57 10/20 21.41 10/22 29.70 GFR: 10/22 67.5 10/20 44.2 10/19 28.5 10/18 34 Non- GFR: 10/18 29 10/19 24.6 10/20 38.1 10/22 58.2 Treatment: No hydronephrosisnoted onkidney ultrasound. Further workup outpatient. Off IV fluids. Add Lasix 20 mg once daily. F/U OP 1wk post discharge. RepeatBMPand magnesium level 2-3 days post discharge. Please clarify the stage of the CKD, if known: [ ] CKD Stage 2 (GFR 60-89) [ ] CKD Stage 3 (GFR 30-59) [ ] CKD Stage 3a (GFR 45-59) [ ] CKD Stage 3b (GFR 30-44) [ ] CKD Stage 4 (GFR 15-29) [ ] Other, please specify [ x] Unable to determine (Template last revised: August 2020) MTDD
== END 2022-10-25 11:32 | disposition home or self-care (01) | DRG 640 ==
LOC: EC 17:27 → 4SSUR 21:29
PROVIDERS: ADMIT Family Medicine; ATTEND Family Medicine
DX: E86.0 Dehydration (principal); K85.90 Acute pancreatitis without necrosis or infection, unspecified; N17.0 Acute kidney failure with tubular necrosis; I13.0 Hypertensive heart and chronic kidney disease with heart failure and stage 1 through stage 4 chronic kidney disease, or unspecified chronic kidney disease; I50.32 Chronic diastolic (congestive) heart failure; N39.0 Urinary tract infection, site not specified; E87.20 Acidosis, unspecified; J43.2 Centrilobular emphysema; M41.56 Other secondary scoliosis, lumbar region; I95.89 Other hypotension; J84.10 Pulmonary fibrosis, unspecified; E11.51 Type 2 diabetes mellitus with diabetic peripheral angiopathy without gangrene; E11.22 Type 2 diabetes mellitus with diabetic chronic kidney disease; E03.9 Hypothyroidism, unspecified; E66.9 Obesity, unspecified; Z68.36 Body mass index [BMI] 36.0-36.9, adult; F32.A Depression, unspecified; E11.65 Type 2 diabetes mellitus with hyperglycemia; N18.9 Chronic kidney disease, unspecified; I25.10 Atherosclerotic heart disease of native coronary artery without angina pectoris; G89.29 Other chronic pain; T38.0X5A Adverse effect of glucocorticoids and synthetic analogues, initial encounter; E78.5 Hyperlipidemia, unspecified; E86.1 Hypovolemia; M79.7 Fibromyalgia; E83.42 Hypomagnesemia; K21.9 Gastro-esophageal reflux disease without esophagitis; F41.0 Panic disorder [episodic paroxysmal anxiety]; M16.11 Unilateral primary osteoarthritis, right hip; M41.9 Scoliosis, unspecified; M25.78 Osteophyte, vertebrae; M51.36 Other intervertebral disc degeneration, lumbar region; M25.461 Effusion, right knee; M79.89 Other specified soft tissue disorders; N20.0 Calculus of kidney; M54.2 Cervicalgia; Z77.22 Contact with and (suspected) exposure to environmental tobacco smoke (acute) (chronic); W18.30XA Fall on same level, unspecified, initial encounter; Z77.120 Contact with and (suspected) exposure to mold (toxic); Z86.11 Personal history of tuberculosis; Z95.5 Presence of coronary angioplasty implant and graft; Z87.891 Personal history of nicotine dependence; Z86.718 Personal history of other venous thrombosis and embolism; Z88.5 Allergy status to narcotic agent; Z90.2 Acquired absence of lung [part of]; Z79.899 Other long term (current) drug therapy; Z79.84 Long term (current) use of oral hypoglycemic drugs; Z79.82 Long term (current) use of aspirin; Z79.02 Long term (current) use of antithrombotics/antiplatelets; Z28.311 Partially vaccinated for COVID-19; Z87.442 Personal history of urinary calculi
CPT/HCPCS: 36415; 71046; 71275; 72131; 74176; 76770; 80048; 80053; 81001; 82533; 82607; 82746; 83036; 83540; 83550; 83605; 83735; 83921; 84145; 84443; 84484; 85025; 85379; 85610; 85652; 85730; 87086; 93005; 93923; 93970; 94640; 94760; 96361; 96365; 99285

== ENCOUNTER → 2023-02-20 | Outpatient (CLI) | payer MEDICARE ==
--- NOTE | 2023-02-20 15:54 | CT ---
INDICATION: Patient age:Female; 67 years old; Reason for study: J84.9; [facility]. COMPARISON: CTA chest 10/18/2022, chest radiograph 01/27/2023 TECHNIQUE: Multiple thin axial images were obtained through the chest at selected intervals. Prone and supine in spiratory along with supine expiratory images were submitted for review. Please note that due to inte rval acquisition images as defined by high-resolution CT protocol the entire lung parenchyma is not e valuated, therefore small nodular densities may not be visualized. Evaluation of vascular structures , viscera and lymphatics is limited due to lack of intravenous contrast administration. One or more C T dose reduction strategies were utilized during this examination. Total DLP 1094 mGycm. FINDINGS: LUNGS: Scattered bronchiectasis throughout the lungs. Diffuse subpleural reticular opacities redemons trated. Paraseptal emphysematous changes within the bilateral upper lobes redemonstrated. No overt br onchiectasis. Few scattered calcified granulomas. Honeycombing or interstitial thickening. No signifi cant groundglass opacities. Suggested suture material again within the left lower lobe. There is diff use air trapping on expiratory phase. No acute area of infiltrative or consolidative change. LARGE AIRWAYS: Central airways are patent. No dynamic airway collapse on expiratory imaging. PLEURA: No pleural effusion or thickening. HEART AND PERICARDIUM: Mildly enlarged. There is no pericardial effusion. MEDIASTINUM AND JM: No mediastinal or hilar lymphadenopathy or soft tissue mass. Few calcified gran ulomas. VESSELS: The thoracic aorta is normal in course and caliber. Atherosclerotic calcification of aorta and its branches. CHEST WALL AND DIAPHRAGM: Normal. LOWER NECK: Normal. UPPER ABDOMEN: Unremarkable. MUSCULOSKELETAL: No acute fracture. IMPRESSION: Overall stable examination from CTA chest 06/29/2022 with bilateral upper lobe paraseptal emphysemato us changes and mild diffuse subpleural fibrosis. No honeycombing or bronchiectasis.
== END | disposition home or self-care (01) ==
LOC: RADCTMAIN 14:39
PROVIDERS: ATTEND Internal Medicine Critical Care Medicine
DX: J43.9 Emphysema, unspecified (principal); J84.10 Pulmonary fibrosis, unspecified
CPT/HCPCS: 71250

== ENCOUNTER 2023-03-26 15:57 | Emergency (ER) | payer MEDICARE ==
[2023-03-26 16:56] VITALS: TEMP 97.3
--- NOTE | 2023-03-26 17:47 | ED ---
General Adult HPI - General Source: patient, RN notes reviewed Mode of arrival: wheelchair Limitations: no limitations <Pura Hernandes - Last Filed: 03/26/23 17:56> - General Source: patient, RN notes reviewed Limitations: no limitations <Bijan Zuluaga - Last Filed: 03/26/23 20:29> - General Chief complaint: Back Pain/Injury Stated complaint: Back Pain Time Seen by Provider: 03/26/23 17:56 - History of Present Illness Initial comments: 67 year old female presents to the emergency department for chief complaint of right sided back and buttock radiating down the right leg. She states that it has been going on for 1 week but seems to be worsening. (Pura Hernandes) Patient is a pleasant 67-year-old female presenting to the emergency Department with back pain. Patient states symptoms have been present for the past week. Patient does have history of similar symptoms previously associated with her back problems. Patient states she was here a couple weeks ago. Patient states discomfort is right lower back and does radiate down the leg. No weakness. No loss of sensation. No loss of control of bowel or bladder products. (Bijan Zuluaga) - Related Data Home Medications Medication Instructions Recorded Confirmed clonazePAM [Clonazepam] 1 mg PO TID 02/20/14 10/18/22 HYDROcodone/APAP 7.5-325MG [[place] 1 tab PO DAILY PRN 09/14/16 10/18/22 7.5-325] Rosuvastatin Calcium [Crestor] 40 mg PO DAILY 01/10/17 10/18/22 Aspirin EC [Ecotrin Low Dose] 81 mg PO DAILY 01/27/20 10/18/22 Multivit-Min/Iron/Folic/Lutein 1 tab PO DAILY 06/28/22 10/18/22 [Centrum Silver Women Tablet] Sertraline [Zoloft] 100 mg PO DAILY 06/28/22 10/18/22 amLODIPine [Norvasc] 5 mg PO HS 06/28/22 10/18/22 Albuterol Sulfate [Albuterol 2 puff INHALATION RT-Q6H PRN 10/01/22 10/18/22 Sulfate Hfa] hydrALAZINE HCL [Apresoline] 100 mg PO BID 10/18/22 10/18/22 Previous Rx's Medication Instructions Recorded Clopidogrel Bisulfate [Plavix] 75 mg PO DAILY #90 tab 04/15/20 Acetaminophen Tab [Tylenol] 650 mg PO Q6HR PRN tab 10/05/22 Budesonide [Pulmicort] 0.5 mg INHALATION RT-BID 90 Days 10/05/22 #180 ml Ipratropium-Albuterol Nebulize 3 ml INHALATION RT-QID 30 Days 10/05/22 [Duoneb 0.5 mg-3 mg/3 ml Soln] #120 each Nitroglycerin Sl Tabs [Nitrostat] 0.4 mg SUBLINGUAL Q5M PRN tab 10/05/22 Pantoprazole [Protonix] 40 mg PO AC-BID 90 Days #180 tab 10/05/22 Formoterol Fumarate [Perforomist] 20 mcg INHALATION RT-BID 90 Days 10/24/22 #180 ml Furosemide [Lasix] 20 mg PO DAILY 90 Days #90 tab 10/24/22 Insulin Detemir (Levemir) [Levemir] 20 unit SQ DAILY@0700 90 Days #90 10/24/22 each Magnesium Oxide [Mag-Ox] 400 mg PO BID 90 Days #180 tab 10/24/22 atenoloL [Tenormin] 50 mg PO BID 90 Days #180 tab 10/24/22 hydrALAZINE HCL [Apresoline] 100 mg PO BID 90 Days #180 tab 10/24/22 predniSONE [Deltasone] 20 mg PO DAILY 30 Days #30 tab 10/24/22 methylPREDNISolone Dose Pack 4 mg PO DIRECTED #21 tab 03/26/23 [Medrol Dose Pack] Allergies Allergy/AdvReac Type Severity Reaction Status Date / Time hydrocodone bitartrate AdvReac Nausea & Verified 01/26/23 21:22 [From Vicodin] Vomiting propoxyphene napsylate AdvReac Nausea & Verified 01/26/23 21:22 [From Darvocet-N 100] Vomiting Review of Systems ROS Other: All systems not noted in ROS Statement are negative. <Pura Hernandes - Last Filed: 03/26/23 17:56> ROS Other: All systems not noted in ROS Statement are negative. Constitutional: Denies: fever Eyes: Denies: eye pain ENT: Denies: ear pain Cardiovascular: Denies: chest pain Endocrine: Denies: fatigue Gastrointestinal: Denies: abdominal pain Musculoskeletal: Reports: back pain Neurological: Denies: weakness, numbness, paresthesias <Bijan Zuluaga - Last Filed: 03/26/23 20:29> ROS Statement: Those systems with pertinent positive or pertinent negative responses have been documented in the HPI. Past Medical History Past Medical History: Coronary Artery Disease (CAD), COPD, Deep Vein Thrombosis (DVT), Fibromyalgia, GERD/Reflux, Hyperlipidemia, Hypertension, Osteoarthritis (OA), Skin Disorder Additional Past Medical History / Comment(s): DIVERTICULITIS, HX KIDNEY STONE- still has it but it's never moved , Pneumonia, ROSACEA, DVT RLE 2007,gerson cataracts, BILAT ILIAC ARTERIES BLOCKED PER PT, pulmonary fibrosis History of Any Multi-Drug Resistant Organisms: None Reported Past Surgical History: Appendectomy, Bowel Resection, Heart Catheterization With Stent, Hernia Repair, Tubal Ligation Additional Past Surgical History / Comment(s): COLONOSCOPY, PARTIAL LT LOBECTOMY-(pt stated they thought i might of had tb but it was just scar tissue), D & C, 07-17-14 BOWEL RESECTION, HEART CATH [place] 2 [place] [facility] [place] , 12-18-17 lap robotic assisted repair of inc hernia Past Anesthesia/Blood Transfusion Reactions: No Reported Reaction Date of Last Stent Placement:: 11-15-15 AT [facility] [place] Past Psychological History: Anxiety, Panic Disorder Smoking Status: Former smoker Past Alcohol Use History: None Reported Past Drug Use History: None Reported - Past Family History Mother Family Medical History: Congestive Heart Failure (CHF) Father Family Medical History: Cancer Additional Family Medical History / Comment(s): TYPE OF CANCER NOT KNOWN <Pura Hernandes - Last Filed: 03/26/23 17:56> General Exam Limitations: no limitations <Pura Hernandes - Last Filed: 03/26/23 17:56> Limitations: no limitations General appearance: alert, in no apparent distress Head exam: Present: normocephalic Eye exam: Present: normal appearance Neck exam: Present: normal inspection Respiratory exam: Present: normal lung sounds bilaterally Cardiovascular Exam: Present: bradycardia Expanded Peripheral pulses: 2+: Dorsalis Pedis (R), Dorsalis Pedis (L) GI/Abdominal exam: Present: soft. Absent: distended, tenderness, pulsatile mass Extremities exam: Present: normal inspection Back exam: Present: tenderness (Right lower lumbar) Neurological exam: Present: alert. Absent: motor sensory deficit Psychiatric exam: Present: normal affect, normal mood Skin exam: Present: normal color <Bijan Zuluaga - Last Filed: 03/26/23 20:29> - General Exam Comments Initial Comments: Visual Physical Exam Vital signs reviewed General: Well-appearing, nontoxic, no acute distress. Head: Normocephalic, atraumatic Eyes: PERRLA, EOMI ENT: Airway patent Chest: Nonlabored breathing Skin: No visual rash, normal skin tone Neuro: Alert and oriented 3 Musculoskeletal: No gross abnormalities (Pura Hernandes) Course Vital Signs 03/26/23 16:50 Temperature 97.3 F L Pulse Rate 50 L Respiratory 20 Rate Blood Pressure 159/100 O2 Sat by Pulse 98 Oximetry Medical Decision Making <Pura Hernandes - Last Filed: 03/26/23 17:56> <Bijan Zuluaga - Last Filed: 03/26/23 20:29> - Medical Decision Making I preformed the quick note portion of this chart. Electronically signed by Pura Hernandes PA-C (Pura Hernandes) Was pt. sent in by a medical professional or institution (CHARLI Stallings, HR DIRECTOR, urgent care, hospital, or care home...) When possible be specific @ -No Did you speak to anyone other than the patient for history (EMS, parent, family, police, friend...)? What history was obtained from this source @ -No Did you review nursing and triage notes (agree or disagree)? Why? @ -I reviewed and agree with nursing and triage notes Were old charts reviewed (outside hosp., previous admission, EMS record, old EKG, old radiological studies, urgent care reports/EKG's, care home records)? Report findings @ -No old charts were reviewed Differential Diagnosis (chest pain, altered mental status, abdominal pain women, abdominal pain men, vaginal bleeding, weakness, fever, dyspnea, syncope, headache, dizziness, GI bleed, back pain, seizure, CVA, palpatations, mental health, musculoskeletal)? @ -Differential Back Pain: Strain, zoster, cauda equina syndrome, epidural abscess, vertebral osteomyelitis, discitis, fracture, subluxation, disc herniation, DJD, spinal stenosis, dissection, AAA, pancreatitis, peptic ulcer disease, pyelonephritis, kidney stone, this is not meant to be an all-inclusive list. EKG interpreted by me (3pts min.). @ -As above X-rays interpreted by me (1pt min.). @ -Chest x-ray shows cardiomegaly CT interpreted by me (1pt min.). @ -None done U/S interpreted by me (1pt. min.). @ -None done What testing was considered but not performed or refused? (CT, X-rays, U/S, labs)? Why? @ -None What meds were considered but not given or refused? Why? @ -None Did you discuss the management of the patient with other professionals (professionals i.e. , PA, HR DIRECTOR, lab, RT, psych nurse, social services analyst, cpo, teacher, training officer, foster care case manager)? Give summary @ -Case was discussed with Dr. Garber who is familiar with this patient. He does recommend discharge and will consider epidural for this patient. She will need to hold her Plavix. This was discussed with patient. Was smoking cessation discussed for >3mins.? @ -No Was critical care preformed (if so, how long)? @ -No Were there social determinants of health that impacted care today? How? (Homelessness, low income, unemployed, alcoholism, drug addiction, transportation, low edu. Level, literacy, decrease access to med. care, half-way, rehab)? @ -No Was there de-escalation of care discussed even if they declined (Discuss DNR or withdrawal of care, Hospice)? DNR status @ -No What co-morbidities impacted this encounter? (DM, HTN, Smoking, COPD, CAD, Cancer, CVA, ARF, Chemo, Hep., AIDS, mental health diagnosis, sleep apnea, morbid obesity)? @ -None Was patient admitted / discharged? Hospital course, mention meds given and route, prescriptions, significant lab abnormalities, going to OR and other pertinent info. @ -Patient reevaluated and updated. Patient will be tried pain medication and steroids. Patient will be discharged to follow-up with her doctor. Undiagnosed new problem with uncertain prognosis? @ -No Drug Therapy requiring intensive monitoring for toxicity (Heparin, Nitro, Insulin, Cardizem)? @ -No Were any procedures done? @ -No Diagnosis/symptom? @ -Low back pain Acute, or Chronic, or Acute on Chronic? @ -Acute Uncomplicated (without systemic symptoms) or Complicated (systemic symptoms)? @ -default Side effects of treatment? @ -No Exacerbation, Progression, or Severe Exacerbation? @ -No Poses a threat to life or bodily function? How? (Chest pain, [place], [place], pneumonia, PE, COPD, DKA, ARF, appy, cholecystitis, CVA, Diverticulitis, Homicidal, Suicidal, threat to staff... and all critical care pts) @ -No (Bijan Zuluaga) Disposition <Pura Hernandes - Last Filed: 03/26/23 17:56> Is patient prescribed a controlled substance at d/c from ED?: No Time of Disposition: 20:29 <Bijan Zuluaga - Last Filed: 03/26/23 20:29> Clinical Impression: Low back pain Disposition: HOME SELF-CARE Condition: Stable Instructions (If sedation given, give patient instructions): Acute Low Back Pain (ED) Additional Instructions: Prescription sent to pharmacy. Please do follow-up through primary care physician tomorrow. Discussed with her doctor regarding holding Plavix for possible epidural. Return for weakness, loss of control of bowel or bladder, loss of sensation, worsening symptoms or other concerns. Prescriptions: methylPREDNISolone Dose Pack [Medrol Dose Pack] 4 mg PO DIRECTED #21 tab Referrals: Gregorio Garber MD [Primary Care Provider] - 1-2 days
[2023-03-26] MEDS ORDERED: KETOROLAC 15 MG/ML 1 ML VIAL IVP STA (19:07)
[2023-03-26] MEDS ORDERED: HYDROmorphone 1 MG/ML 1 ML SYRINGE IVP STA (19:07)
[2023-03-26] MEDS ORDERED: IPRATROPIUM-ALBUTEROL 3 ML NEB INHALATION STA (19:08)
[2023-03-26] MEDS ORDERED: HYDROmorphone 1 MG/ML 1 ML SYRINGE IM STA (20:12)
[2023-03-26] MEDS ORDERED: KETOROLAC 15 MG/ML 1 ML VIAL IM STA (20:12)
--- NOTE | 2023-03-26 20:58 | XR ---
EXAMINATION TYPE: XR chest 2V DATE OF EXAM: 03/26/2023 8:21 PM CLINICAL INDICATION:Female, 67 years old with history of wheezing; [facility] COMPARISON: Chest radiographs from 01/27/2023 TECHNIQUE: XR chest 2V Frontal and lateral views of the chest. FINDINGS: Lungs/Pleura: Prominent interstitial lung markings are seen scattered throughout the lungs. No eviden ce of focal consolidation, pneumothorax or pleural effusion. Pulmonary vascularity: Unremarkable. Heart/mediastinum: Cardiomediastinal silhouette is enlarged and stable. Musculoskeletal: No acute osseous pathology. IMPRESSION: Fibrotic chronic changes to the lungs. Correlate with serum BNP for superposed congestive heart failu re.
[2023-03-26 21:04] VITALS: BP 170/76; PULSE 65; RESP 18
== END 2023-03-26 21:12 | disposition home or self-care (01) ==
LOC: EC 15:57
DX: M54.50 Low back pain, unspecified (principal); I10 Essential (primary) hypertension; I25.10 Atherosclerotic heart disease of native coronary artery without angina pectoris; J44.9 Chronic obstructive pulmonary disease, unspecified; E78.5 Hyperlipidemia, unspecified; F41.9 Anxiety disorder, unspecified; Z79.82 Long term (current) use of aspirin; Z79.899 Other long term (current) drug therapy; Z88.5 Allergy status to narcotic agent; Z88.8 Allergy status to other drugs, medicaments and biological substances; Z90.49 Acquired absence of other specified parts of digestive tract; Z87.891 Personal history of nicotine dependence
CPT/HCPCS: 94640; 71046; 99283; 96372 ×2; J1170; J1885

== ENCOUNTER 2023-05-03 15:47 | Inpatient (IN) | payer MEDICARE ==
--- NOTE | 2023-05-03 16:33 | ED ---
Arrhythmia/Palpitations HPI - General Source: patient, RN notes reviewed Mode of arrival: wheelchair Limitations: no limitations - History of Present Illness MD Complaint: palpitations <Kelli Iverson - Last Filed: 05/03/23 16:27> - History of Present Illness MD Complaint: palpitations -: week(s), month(s) Context: occurred during rest, occurred during exertion, change in medication Associated Symptoms: shortness of breath, anxiety, feeling of impending doom Treatments Prior to Arrival: other (0) <Td Lezama - Last Filed: 05/05/23 18:12> - General Chief Complaint: Arrhythmia/Palpitations Stated Complaint: BP issue Time Seen by Provider: 05/03/23 16:25 - History of Present Illness Initial Comments: This is a 67-year-old female who presents to the emergency department for shortness of breath and palpitations. Symptoms are worse with exertion. Reports a history of coronary artery disease requiring stent placement. (Kelli Iverson) This is a 59-year-old female to the emergency department for evaluation of elevated blood pressure at home. Patient's very concerned over elevated blood pressure, she also severe shortness of breath especially with exertion with mu ltiple recent hospital admissions. Patient is very emotional here in the emergency department regarding her overall declining health. (Td Lezama) - Related Data Home Medications Medication Instructions Recorded Confirmed clonazePAM [Clonazepam] 1 mg PO TID 02/20/14 05/03/23 HYDROcodone/APAP 7.5-325MG [[place] 1 tab PO BID 09/14/16 05/03/23 7.5-325] Rosuvastatin Calcium [Crestor] 40 mg PO HS 01/10/17 05/03/23 Aspirin EC [Ecotrin Low Dose] 81 mg PO DAILY 01/27/20 05/03/23 Sertraline [Zoloft] 100 mg PO DAILY 06/28/22 05/03/23 amLODIPine [Norvasc] 5 mg PO DAILY 06/28/22 05/03/23 Albuterol Sulfate [Albuterol 2 puff INHALATION RT-Q6H PRN 10/01/22 05/03/23 Sulfate Hfa] hydrALAZINE HCL [Apresoline] 100 mg PO BID PRN 10/18/22 05/03/23 Budesonide/Glycopyr/Formoterol 2 puff INHALATION RT-BID 05/03/23 05/03/23 [Breztri Aerosphere Inhaler] Dapagliflozin Propanediol [Farxiga] 5 mg PO DAILY 05/03/23 05/03/23 Gabapentin [Neurontin] 300 mg PO TID 05/03/23 05/03/23 Ipratropium-Albuterol Nebulize 3 ml INHALATION RT-QID PRN 05/03/23 05/03/23 [Duoneb 0.5 mg-3 mg/3 ml Soln] Multivitamin [Multivitamins Adult 1 cap PO DAILY 05/03/23 05/03/23 Gummies] Potassium Chloride ER [K-Dur 20] 20 meq PO DAILY 05/03/23 05/03/23 atenoloL [Tenormin] 50 mg PO DAILY 05/03/23 05/03/23 tiZANidine [Zanaflex] 2 mg PO DAILY PRN 05/03/23 05/03/23 Previous Rx's Medication Instructions Recorded Acetaminophen Tab [Tylenol] 650 mg PO Q6HR PRN tab 10/05/22 Nitroglycerin Sl Tabs [Nitrostat] 0.4 mg SUBLINGUAL Q5M PRN tab 10/05/22 Pantoprazole [Protonix] 40 mg PO AC-BID 90 Days #180 tab 10/05/22 Furosemide [Lasix] 20 mg PO DAILY 90 Days #90 tab 10/24/22 Allergies Allergy/AdvReac Type Severity Reaction Status Date / Time hydrocodone bitartrate AdvReac Nausea & Verified 05/03/23 21:39 [From Vicodin] Vomiting propoxyphene napsylate AdvReac Nausea & Verified 05/03/23 21:39 [From Darvocet-N 100] Vomiting Review of Systems ROS Other: All systems not noted in ROS Statement are negative. <Kelli Iverson - Last Filed: 05/03/23 16:27> ROS Other: All systems not noted in ROS Statement are negative. <Td Lezama - Last Filed: 05/05/23 18:12> ROS Statement: Those systems with pertinent positive or pertinent negative responses have been documented in the HPI. Past Medical History Past Medical History: Coronary Artery Disease (CAD), COPD, Deep Vein Thrombosis (DVT), Fibromyalgia, GERD/Reflux, Hyperlipidemia, Hypertension, Osteoarthritis (OA), Skin Disorder Additional Past Medical History / Comment(s): DIVERTICULITIS, HX KIDNEY STONE- still has it but it's never moved , Pneumonia, ROSACEA, DVT RLE 2007,gerson catarac ts, BILAT ILIAC ARTERIES BLOCKED PER PT, pulmonary fibrosis History of Any Multi-Drug Resistant Organisms: None Reported Past Surgical History: Appendectomy, Bowel Resection, Heart Catheterization With Stent, Hernia Repair, Tubal Ligation Additional Past Surgical History / Comment(s): COLONOSCOPY, PARTIAL LT LOBECTOMY-(pt stated they thought i might of had tb but it was just scar tissue), D & C, 07-17-14 BOWEL RESECTION, [place] [facility] [place] , 12-18-17 lap robotic assisted repair of inc hernia Past Anesthesia/Blood Transfusion Reactions: No Reported Reaction Date of Last Stent Placement:: [place] [facility] [place] Psychological History: Anxiety, Panic Disorder Smoking Status: Former smoker Past Alcohol Use History: None Reported Past Drug Use History: None Reported - Past Family History Mother Family Medical History: Congestive Heart Failure (CHF) Father Family Medical History: Cancer Additional Family Medical History / Comment(s): TYPE OF CANCER NOT KNOWN <Kelli Iverson - Last Filed: 05/03/23 16:27> General Exam Limitations: no limitations <Kelli Iverson - Last Filed: 05/03/23 16:27> General appearance: alert, in no apparent distress Head exam: Present: atraumatic, normocephalic, normal inspection Eye exam: Present: normal appearance, PERRL, EOMI. Absent: scleral icterus, conjunctival injection, periorbital swelling ENT exam: Present: normal exam, mucous membranes moist Neck exam: Present: normal inspection. Absent: tenderness, meningismus, lymphadenopathy Respiratory exam: Present: normal lung sounds bilaterally. Absent: respiratory distress, wheezes, rales, rhonchi, stridor Cardiovascular Exam: Present: regular rate, normal rhythm, normal heart sounds. Absent: systolic murmur, diastolic murmur, rubs, gallop, clicks GI/Abdominal exam: Present: soft, normal bowel sounds. Absent: distended, tenderness, guarding, rebound, rigid Extremities exam: Present: normal inspection, full ROM, normal capillary refill. Absent: tenderness, pedal edema, joint swelling, calf tenderness Back exam: Present: normal inspection Neurological exam: Present: alert, oriented X3, CN II-XII intact Psychiatric exam: Present: normal affect, normal mood Skin exam: Present: warm, dry, intact, normal color. Absent: rash <Td Lezama - Last Filed: 05/05/23 18:12> - General Exam Comments Initial Comments: Visual Physical Exam Vital signs reviewed General: Well-appearing, nontoxic, no acute distress. Head: Normocephalic, atraumatic Eyes: PERRLA, EOMI ENT: Airway patent Chest: Nonlabored breathing Skin: No visual rash, normal skin tone Neuro: Alert and oriented 3 Musculoskeletal: No gross abnormalities I performed the QuickNote portion of this chart. Signed Kelli Iverson PA-C. (Kelli Iverson) Course <Td Lezama Filed: 05/05/23 18:12> Vital Signs 05/03/23 05/03/23 05/03/23 15:52 19:15 19:20 Temperature 98.3 F 98.2 F Pulse Rate 62 61 72 Pulse Rate [ Pulse Oximetery ] Respiratory 24 18 18 Rate Blood Pressure 147/65 160/72 165/77 Blood Pressure [Right Arm] O2 Sat by Pulse 96 93 L 96 Oximetry 05/03/23 05/03/23 05/03/23 19:30 19:40 19:50 Temperature Pulse Rate Pulse Rate [ Pulse Oximetery ] Respiratory Rate Blood Pressure 165/77 160/72 160/72 Blood Pressure [Right Arm] O2 Sat by Pulse 94 L 92 L 92 L Oximetry 05/03/23 05/03/23 05/03/23 20:00 20:10 20:20 Temperature Pulse Rate Pulse Rate [ Pulse Oximetery ] Respiratory Rate Blood Pressure 160/72 160/70 160/70 Blood Pressure [Right Arm] O2 Sat by Pulse 90 L 92 L 90 L Oximetry 05/03/23 05/03/23 05/04/23 22:14 22:25 00:30 Temperature Pulse Rate 65 68 65 Pulse Rate [ Pulse Oximetery ] Respiratory 22 Rate Blood Pressure 129/61 Blood Pressure [Right Arm] O2 Sat by Pulse 91 L Oximetry 05/04/23 05/04/23 05/04/23 01:00 04:35 05:00 Temperature 98.6 F Pulse Rate 67 66 Pulse Rate [ Pulse Oximetery ] Respiratory 20 Rate Blood Pressure 117/73 114/53 Blood Pressure [Right Arm] O2 Sat by Pulse 95 95 Oximetry 05/04/23 05/04/23 05/04/23 08:46 08:58 11:20 Temperature 98.1 F Pulse Rate 66 66 69 Pulse Rate [ Pulse Oximetery ] Respiratory 18 Rate Blood Pressure 123/55 Blood Pressure [Right Arm] O2 Sat by Pulse 93 L Oximetry 05/04/23 05/04/23 05/04/23 11:29 11:40 15:17 Temperature Pulse Rate 67 67 71 Pulse Rate [ Pulse Oximetery ] Respiratory 18 Rate Blood Pressure 131/58 Blood Pressure [Right Arm] O2 Sat by Pulse 93 L Oximetry 05/04/23 05/04/23 05/04/23 16:34 16:46 17:45 Temperature 97.7 F Pulse Rate 67 67 Pulse Rate [ 85 Pulse Oximetery ] Respiratory 18 Rate Blood Pressure Blood Pressure 160/62 [Right Arm] O2 Sat by Pulse 96 Oximetry - Reevaluation(s) Reevaluation #1: 05/03/23 21:28 Medical record is reviewed (Td Lezama) Reevaluation #2: 05/03/23 21:28 Patient has no real change in symptoms here in the ER blood pressure remains elevated (Td Lezama) Reevaluation #3: 05/03/23 21:28 Patient informed of results questions answered (Td Lezama) Reevaluation #4: 05/03/23 21:28 Was pt. sent in by a medical professional or institution (, PA, SENIOR RESEARCH FELLOW, urgent care, hospital, or care home...) When possible be specific @ -no Did you speak to anyone other than the patient for history (EMS, parent, family, police, friend...)? What history was obtained from this source @ -no Did you review nursing and triage notes (agree or disagree)? Why? @ -agree Are old charts reviewed (outside hosp., previous admission, EMS record, old EKG, old radiological studies, urgent care reports/EKG's, care home records)? Report findings @ -yes Differential Diagnosis (chest pain, altered mental status, abdominal pain women, abdominal pain men, vaginal bleeding, weakness, fever, dyspnea, syncope, headache, dizziness, GI bleed, back pain, seizure, CVA, palpatations, mental health, musculoskeletal)? @ -prior EKG interpreted by me (3pts min.). @ -yes X-rays interpreted by me (1pt min.). @ -yes CT interpreted by me (1pt min.). @ -no U/S interpreted by me (1pt. min.). @ -no What testing was considered but not performed or refused? (CT, X-rays, U/S, labs)? Why? @ -none What meds were considered but not given or refused? Why? @ -none Did you discuss the management of the patient with other professionals (professionals i.e. , PA, SENIOR RESEARCH FELLOW, lab, RT, psych nurse, social welfare research worker, stream control officer, teacher, airport operations officer, case packer and sealer)? Give summary @ -no Was smoking cessation discussed for >3mins.? @ -no Was critical care preformed (if so, how long)? @ -no Were there social determinants of health that impacted care today? How? (Homelessness, low income, unemployed, alcoholism, drug addiction, transportation, low edu. Level, literacy, decrease access to med. care, retirement, rehab)? @ -none Was there de-escalation of care discussed even if they declined (Discuss DNR or withdrawal of care, Hospice)? DNR status @ -no What co-morbidities impacted this encounter? (DM, HTN, Smoking, COPD, CAD, Cancer, CVA, ARF, Chemo, Hep., AIDS, mental health diagnosis, sleep apnea, morbid obesity)? @ -none Was patient admitted / discharged? Hospital course, mention meds given and route, prescriptions, significant lab abnormalities, going to OR and other pert inent info. @ - 67 female to the ER will be admitted for blood pressure control CHF, diuresis and cardiology evaluation and treatment. Admitted Undiagnosed new problem with uncertain prognosis? @ -no Drug Therapy requiring intensive monitoring for toxicity (Heparin, Nitro, Insulin, Cardizem)? @ -no Were any procedures done? @ -no Diagnosis/symptom? @ -CHF and hypertension uncontrolled Acute, or Chronic, or Acute on Chronic? @ -Acute Uncomplicated (without systemic symptoms) or Complicated (systemic symptoms)? @ -Complicated Side effects of treatment? @ -no Exacerbation, Progression, or Severe Exacerbation? @ -exacerbation Poses a threat to life or bodily function? How? (Chest pain, [place], AL, pneumonia, PE, COPD, DKA, ARF, appy, cholecystitis, CVA, Diverticulitis, Homicidal, Suici karri, threat to staff... and all critical care pts) @ -yes with acute CHF and shortness of breath, stridor failure (Td Lezama) Reevaluation #5: 05/03/23 21:28 Differential Weakness: Hypoglycemia, shock, sepsis, hyponatremia, anemia, infection, AL, ETOH, adverse medicine reaction, overdose, stroke, this is not meant to be an all-inclusive list. (Td Lezama) - Consultations Consultation #1: Spoke with Dr. Garber who agrees to observe this patient (Td Lezama) EKG Findings - EKG Comments: EKG Findings:: EKG is sinus bradycardia 57 LA 183 QRS 79 QTC 410 - EKG Results: EKG: interpreted by ERMD <Td Lezama - Last Filed: 05/05/23 18:12> Medical Decision Making - Lab Data Result diagrams: 05/04/23 06:44 05/05/23 06:03 - EKG Data -: EKG Interpreted by Me - Radiology Data Radiology results: report reviewed (Chest x-rays positive for CHF), image reviewed <Td Lezama - Last Filed: 05/05/23 18:12> - Medical Decision Making 67 female to the ER will be admitted for blood pressure control CHF, diuresis and cardiology evaluation and treatment (Td Lezama) - Lab Data Lab Results 05/03/23 05/03/23 05/03/23 Range/Units 15:57 15:57 15:57 WBC 10.5 (3.8-10.6) k/uL RBC 5.46 H (3.80-5.40) m/uL Hgb 15.3 (11.4-16.0) gm/dL Hct 46.2 H (34.0-46.0) % MCV 84.6 (80.0-100.0) fL MCH 28.1 (25.0-35.0) pg MCHC 33.2 (31.0-37.0) g/dL RDW 17.0 H (11.5-15.5) % Plt Count 411 (150-450) k/uL MPV 8.1 Neutrophils % 78 % Lymphocytes % 11 % Monocytes % 8 % Eosinophils % 3 % Basophils % 0 % Neutrophils # 8.2 H (1.3-7.7) k/uL Lymphocytes # 1.1 (1.0-4.8) k/uL Monocytes # 0.8 (0-1.0) k/uL Eosinophils # 0.3 (0-0.7) k/uL Basophils # 0.0 (0-0.2) k/uL Anisocytosis Slight PT (10.0-12.5) sec INR (<1.2) APTT (22.0-30.0) sec Sodium 140 (137-145) mmol/L Potassium 4.0 (3.5-5.1) mmol/L Chloride 102 (98-107) mmol/L Carbon Dioxide 25 (22-30) mmol/L Anion Gap 13 mmol/L BUN 17 (7-17) mg/dL Creatinine 1.10 H (0.52-1.04) mg/dL Est GFR (CKD-EPI)AfAm 60 (>60 ml/min/1.73 sqM) Est GFR (CKD-EPI)NonAf 52 (>60 ml/min/1.73 sqM) Glucose 105 H (74-99) mg/dL Calcium 10.4 H (8.4-10.2) mg/dL Phosphorus (2.5-4.5) mg/dL Magnesium 2.0 (1.6-2.3) mg/dL Total Bilirubin 0.8 (0.2-1.3) mg/dL AST 31 (14-36) U/L ALT 16 (4-34) U/L Alkaline Phosphatase 123 (38-126) U/L Troponin I <0.012 (0.000-0.034) ng/mL NT-Pro-B Natriuret Pep pg/mL Total Protein 8.6 H (6.3-8.2) g/dL Albumin 4.9 (3.5-5.0) g/dL 05/03/23 05/03/23 05/04/23 Range/Units 17:09 20:25 06:44 WBC 6.9 (3.8-10.6) k/uL RBC 5.17 (3.80-5.40) m/uL Hgb 14.6 (11.4-16.0) gm/dL Hct 44.0 (34.0-46.0) % MCV 85.0 (80.0-100.0) fL MCH 28.3 (25.0-35.0) pg MCHC 33.2 (31.0-37.0) g/dL RDW 17.1 H (11.5-15.5) % Plt Count 366 (150-450) k/uL MPV 7.0 Neutrophils % 92 % Lymphocytes % 5 % Monocytes % 2 % Eosinophils % 1 % Basophils % 0 % Neutrophils # 6.3 (1.3-7.7) k/uL Lymphocytes # 0.4 L (1.0-4.8) k/uL Monocytes # 0.1 (0-1.0) k/uL Eosinophils # 0.1 (0-0.7) k/uL Basophils # 0.0 (0-0.2) k/uL Anisocytosis Slight PT 10.6 (10.0-12.5) sec INR 1.0 (<1.2) APTT 24.6 (22.0-30.0) sec Sodium (137-145) mmol/L Potassium (3.5-5.1) mmol/L Chloride (98-107) mmol/L Carbon Dioxide (22-30) mmol/L Anion Gap mmol/L BUN (7-17) mg/dL Creatinine (0.52-1.04) mg/dL Est GFR (CKD-EPI)AfAm (>60 ml/min/1.73 sqM) Est GFR (CKD-EPI)NonAf (>60 ml/min/1.73 sqM) Glucose (74-99) mg/dL Calcium (8.4-10.2) mg/dL Phosphorus (2.5-4.5) mg/dL Magnesium (1.6-2.3) mg/dL Total Bilirubin (0.2-1.3) mg/dL AST (14-36) U/L ALT (4-34) U/L Alkaline Phosphatase (38-126) U/L Troponin I (0.000-0.034) ng/mL NT-Pro-B Natriuret Pep 439 pg/mL Total Protein (6.3-8.2) g/dL Albumin (3.5-5.0) g/dL 05/04/23 Range/Units 06:44 WBC (3.8-10.6) k/uL RBC (3.80-5.40) m/uL Hgb (11.4-16.0) gm/dL Hct (34.0-46.0) % MCV (80.0-100.0) fL MCH (25.0-35.0) pg MCHC (31.0-37.0) g/dL RDW (11.5-15.5) % Plt Count (150-450) k/uL MPV Neutrophils % % Lymphocytes % % Monocytes % % Eosinophils % % Basophils % % Neutrophils # (1.3-7.7) k/uL Lymphocytes # (1.0-4.8) k/uL Monocytes # (0-1.0) k/uL Eosinophils # (0-0.7) k/uL Basophils # (0-0.2) k/uL Anisocytosis PT (10.0-12.5) sec INR (<1.2) APTT (22.0-30.0) sec Sodium 139 (137-145) mmol/L Potassium 4.3 (3.5-5.1) mmol/L Chloride 99 (98-107) mmol/L Carbon Dioxide 24 (22-30) mmol/L Anion Gap 16 mmol/L BUN 29 H (7-17) mg/dL Creatinine 1.90 H (0.52-1.04) mg/dL Est GFR (CKD-EPI)AfAm 31 (>60 ml/min/1.73 sqM) Est GFR (CKD-EPI)NonAf 27 (>60 ml/min/1.73 sqM) Glucose 191 H (74-99) mg/dL Calcium 10.2 (8.4-10.2) mg/dL Phosphorus 5.3 H (2.5-4.5) mg/dL Magnesium 2.0 (1.6-2.3) mg/dL Total Bilirubin 0.7 (0.2-1.3) mg/dL AST 25 (14-36) U/L ALT 15 (4-34) U/L Alkaline Phosphatase 111 (38-126) U/L Troponin I (0.000-0.034) ng/mL NT-Pro-B Natriuret Pep pg/mL Total Protein 8.0 (6.3-8.2) g/dL Albumin 4.5 (3.5-5.0) g/dL Disposition <Kelli Iverson - Last Filed: 05/03/23 16:27> Is patient prescribed a controlled substance at d/c from ED?: No Time of Disposition: 21:20 <Td Lezama - Last Filed: 05/05/23 18:12> Clinical Impression: COPD exacerbation, Weakness, Uncontrolled hypertension, CHF (congestive heart failure) Disposition: ADMITTED IP TO THIS HOSP Condition: Fair
--- NOTE | 2023-05-03 16:33 | XR ---
EXAMINATION TYPE: XR chest 2V DATE OF EXAM: 05/03/2023 4:28 PM CLINICAL INDICATION:Female, 67 years old with history of dysrhythmia; COMPARISON: Chest radiographs from 03/26/2023 TECHNIQUE: XR chest 2V Frontal and lateral views of the chest. FINDINGS: Lungs/Pleura: Increased interstitial changes are present. There is no evidence of pleural effusion, f ocal consolidation, or pneumothorax. Pulmonary vascularity: Pulmonary vascular congestion. Heart/mediastinum: Cardiomediastinal silhouette is enlarged and stable. Musculoskeletal: No acute osseous pathology. IMPRESSION: Cardiomegaly, pulmonary vascular congestion and bilateral pleural effusions. Correlate with BNP for c ongestive heart failure. Underlying fibrotic changes also likely present.
[2023-05-03 16:35] LABS: Anisocytosis Slight; Basophils % (A) 0 %; Eosinophils # (A) 0.3 k/uL (0-0.7); Eosinophils % (A) 3 %; HCT 46.2 % (34.0-46.0); HGB 15.3 gm/dL (11.4-16.0); Lymphocytes # (A) 1.1 k/uL (1.0-4.8); Lymphocytes % (A) 11 %; MCH 28.1 pg (25.0-35.0); MCHC 33.2 g/dL (31.0-37.0); MCV 84.6 fL (80.0-100.0); Mean Platelet Volume 8.1; Monocytes # (A) 0.8 k/uL (0-1.0); Monocytes % (A) 8 %; Neutrophils # (A) 8.2 k/uL (1.3-7.7); Neutrophils % (A) 78 %; Platelet Count 411 k/uL (150-450); RBC 5.46 m/uL (3.80-5.40); WBC 10.5 k/uL (3.8-10.6)
[2023-05-03 16:43] LABS: ALT 16 U/L (4-34); AST 31 U/L (14-36); African American GFR (CKD) 60 (>60 ml/min/1.73 sqM); Albumin 4.9 g/dL (3.5-5.0); Alkaline Phosphatase 123 U/L (38-126); Anion Gap 13 mmol/L; Blood Urea Nitrogen 17 mg/dL (7-17); Calcium 10.4 mg/dL (8.4-10.2); Carbon Dioxide 25 mmol/L (22-30); Chloride 102 mmol/L (98-107); Glucose 105 mg/dL (74-99); Non-African American GFR(CKD) 52 (>60 ml/min/1.73 sqM); Sodium 140 mmol/L (137-145); Total Bilirubin 0.8 mg/dL (0.2-1.3); Total Protein 8.6 g/dL (6.3-8.2)
[2023-05-03 17:43] LABS: Partial Thromboplastin Time 24.6 sec (22.0-30.0); Prothrombin Time 10.6 sec (10.0-12.5)
[2023-05-03] MEDS ORDERED: ONDANSETRON 4 MG/2 ML VIAL IVP PRN (21:24)
[2023-05-03] MEDS ORDERED: NALOXONE 0.4 MG/ML 1 ML VIAL IV PRN (21:24)
[2023-05-03] MEDS ORDERED: FUROSEMIDE 10 MG/ML 10 ML VIAL IV STA (21:29)
[2023-05-03] MEDS ORDERED: methylPREDNISolone SOD SUCCI 125 MG/2 ML VIAL IV STA (21:30)
[2023-05-03] MEDS ORDERED: IPRATROPIUM-ALBUTEROL 3 ML NEB INHALATION STA (21:30)
[2023-05-03] MEDS ORDERED: MORPHINE SULFATE 4 MG/ML SYRINGE IVP STA (21:31)
[2023-05-03] MEDS ORDERED: KETOROLAC 15 MG/ML 1 ML VIAL IVP STA (21:31)
[2023-05-03] MEDS: methylPREDNISolone SOD SUCCI 125 MG/2 ML VIAL IV SCH (21:43)
[2023-05-04] MEDS: methylPREDNISolone SOD SUCCI 125 MG/2 ML VIAL IV SCH ×4 (05:29→23:34)
[2023-05-04 07:04] LABS: Anisocytosis Slight; Basophils % (A) 0 %; Eosinophils # (A) 0.1 k/uL (0-0.7); Eosinophils % (A) 1 %; HGB 14.6 gm/dL (11.4-16.0); Lymphocytes # (A) 0.4 k/uL (1.0-4.8); Lymphocytes % (A) 5 %; MCH 28.3 pg (25.0-35.0); MCHC 33.2 g/dL (31.0-37.0); Monocytes # (A) 0.1 k/uL (0-1.0); Monocytes % (A) 2 %; Neutrophils # (A) 6.3 k/uL (1.3-7.7); Neutrophils % (A) 92 %; Platelet Count 366 k/uL (150-450); RBC 5.17 m/uL (3.80-5.40); RDW 17.1 % (11.5-15.5); WBC 6.9 k/uL (3.8-10.6)
[2023-05-04 07:15] LABS: ALT 15 U/L (4-34); AST 25 U/L (14-36); African American GFR (CKD) 31 (>60 ml/min/1.73 sqM); Albumin 4.5 g/dL (3.5-5.0); Alkaline Phosphatase 111 U/L (38-126); Anion Gap 16 mmol/L; Blood Urea Nitrogen 29 mg/dL (7-17); Calcium 10.2 mg/dL (8.4-10.2); Carbon Dioxide 24 mmol/L (22-30); Chloride 99 mmol/L (98-107); Glucose 191 mg/dL (74-99); Non-African American GFR(CKD) 27 (>60 ml/min/1.73 sqM); Phosphorus 5.3 mg/dL (2.5-4.5); Potassium 4.3 mmol/L (3.5-5.1); Sodium 139 mmol/L (137-145); Total Bilirubin 0.7 mg/dL (0.2-1.3)
[2023-05-04] MEDS: PANTOPRAZOLE 40 MG/10 ML VIAL IV SCH (08:24)
[2023-05-04] MEDS: IPRATROPIUM-ALBUTEROL 3 ML NEB INHALATION PRN ×3 (08:46→16:33)
--- NOTE | 2023-05-04 12:41 | P.CRDCN ---
History of Present Illness History of present illness: HISTORY OF PRESENT ILLNESS: This is a 59-year-old female with a past medical history significant for congestive heart failure, coronary artery disease with previous stenting, hypertension, diabetes, hyperlipidemia, peripheral vascular disease with previous lower extremity stenting, chronic back pain, and former nicotine dependence. Patient has not been seen in the office in 3 years. She states that she has an appointment to establish care with Dr. Good.. We have been asked to see the patient in consultation for congestive heart failure. Patient examined at the bedside in the emergency room. The patient states over the past couple days she has been feeling "funny" at home. She states that she checks her blood pressure every morning and she has been having labile blood pressure readings. She reports shortness of breath yesterday that has since resolved. Her main complaint at the time of examination is back pain and she is requesting to be seen by an orthopedic surgeon. She was given 1 dose of IV Lasix by the emergency room physician. Her creatinine increased from 1.10 to 1.90. * EKG reveals sinus mechanism with no signs of acute ischemia * Chest xray cardiac megaly, pulmonary vascular congestion and bilateral pleural effusions * Most recent echocardiogram obtained in June 2022 revealing ejection fraction 55%, mild MR, and mild TR * Cardiac catheterization history: 2016 with patent stent in the PDA * Patient underwent Lexiscan stress test in January 2020 which was negative for ischemia REVIEW OF SYSTEMS: At the time of my exam: CONSTITUTIONAL: Denies fever or chills. HEENT: Denies blurred vision, vision changes, or eye pain. Denies hemoptysis CARDIOVASCULAR: Denies chest pain. Denies orthopnea. Denies PND. Denies palpitations RESPIRATORY: Denies shortness of breath. GASTROINTESTINAL: Denies abdominal pain. Denies nausea or vomiting. HEMATOLOGIC: Denies bleeding disorders. GENITOURINARY: Denies any blood in urine. SKIN: Denies pruitis. Denies rash. PHYSICAL EXAM: VITAL SIGNS: Reviewed. GENERAL: Well-developed in no acute distress. HEENT: Head is normocephalic. Pupils are equal, round. Sclerae anicteric. Mucous membranes of the mouth are moist. Neck supple. No JVD or thyromegaly LUNGS: Respirations even and unlabored. Lungs essentially clear to auscultation bilaterally. HEART: Regular rate and rhythm. S1 and S2 heard. ABDOMEN: Soft. Nondistended. Nontender. EXTREMITIES: Normal range of motion. No clubbing or cyanosis. Peripheral pulses intact. No lower extremity edema NEUROLOGIC: Awake and alert. Oriented x 3. ASSESSMENT: Acute on chronic back pain Labile blood pressures at home, currently stable Mild acute exacerbation of chronic heart failure with preserved ejection fraction Acute kidney injury Coronary artery disease with previous stenting Peripheral vascular disease with previous lower extremity intervention Hypertension Hyperlipidemia Diabetes Former nicotine dependence PLAN: Resume home cardiac medications Obtain 2-D echo to assess cardiac structure and function Continue to monitor blood pressure Patient is currently euvolemic at the time of examination. She also has evidence of acute kidney injury. No further diuretics at this time. We will monitor kidney function and resume oral diuretics when appropriate. Patient requesting orthopedic surgeon evaluation secondary to her chronic back pain. We will defer to internal medicine Further recommendations pending patient's course Nurse practitioner note has been reviewed by physician. Signing provider agrees with the documented findings, assessment, and plan of care. Past Medical History Past Medical History: Coronary Artery Disease (CAD), COPD, Deep Vein Thrombosis (DVT), Fibromyalgia, GERD/Reflux, Hyperlipidemia, Hypertension, Osteoarthritis (OA), Skin Disorder Additional Past Medical History / Comment(s): DIVERTICULITIS, HX KIDNEY STONE- still has it but it's never moved , Pneumonia, ROSACEA, DVT RLE 2007,gerson cataracts, BILAT ILIAC ARTERIES BLOCKED PER PT, pulmonary fibrosis History of Any Multi-Drug Resistant Organisms: None Reported Past Surgical History: Appendectomy, Bowel Resection, Heart Catheterization With Stent, Hernia Repair, Tubal Ligation Additional Past Surgical History / Comment(s): COLONOSCOPY, PARTIAL LT LOBECTOMY-(pt stated they thought i might of had tb but it was just scar tissue), D & C, 07-17-14 BOWEL RESECTION, [place] 2 [place] [facility] [place] , 12-18-17 lap robotic assisted repair of inc hernia Past Anesthesia/Blood Transfusion Reactions: No Reported Reaction Date of Last Stent Placement:: 11-15-15 [place] [facility] [place] Past Psychological History: Anxiety, Panic Disorder Smoking Status: Former smoker Past Alcohol Use History: None Reported Past Drug Use History: None Reported - Past Family History Mother Family Medical History: Congestive Heart Failure (CHF) Father Family Medical History: Cancer Additional Family Medical History / Comment(s): TYPE OF CANCER NOT KNOWN Medications and Allergies Home Medications Medication Instructions Recorded Confirmed Type clonazePAM [Clonazepam] 1 mg PO TID 02/20/14 05/03/23 History HYDROcodone/APAP 7.5-325MG [[place] 1 tab PO BID 09/14/16 05/03/23 History 7.5-325] Rosuvastatin Calcium [Crestor] 40 mg PO HS 01/10/17 05/03/23 History Aspirin EC [Ecotrin Low Dose] 81 mg PO DAILY 01/27/20 05/03/23 History Sertraline [Zoloft] 100 mg PO DAILY 06/28/22 05/03/23 History amLODIPine [Norvasc] 5 mg PO DAILY 06/28/22 05/03/23 History Albuterol Sulfate [Albuterol 2 puff INHALATION RT-Q6H PRN 10/01/22 05/03/23 History Sulfate Hfa] Acetaminophen Tab [Tylenol] 650 mg PO Q6HR PRN tab 10/05/22 05/03/23 Rx Nitroglycerin Sl Tabs [Nitrostat] 0.4 mg SUBLINGUAL Q5M PRN tab 10/05/22 05/03/23 Rx Pantoprazole [Protonix] 40 mg PO AC-BID 90 Days #180 tab 10/05/22 05/03/23 Rx hydrALAZINE HCL [Apresoline] 100 mg PO BID PRN 10/18/22 05/03/23 History Furosemide [Lasix] 20 mg PO DAILY 90 Days #90 tab 10/24/22 05/03/23 Rx Budesonide/Glycopyr/Formoterol 2 puff INHALATION RT-BID 05/03/23 05/03/23 History [Breztri Aerosphere Inhaler] Dapagliflozin Propanediol [Farxiga] 5 mg PO DAILY 05/03/23 05/03/23 History Gabapentin [Neurontin] 300 mg PO TID 05/03/23 05/03/23 History Ipratropium-Albuterol Nebulize 3 ml INHALATION RT-QID PRN 05/03/23 05/03/23 History [Duoneb 0.5 mg-3 mg/3 ml Soln] Multivitamin [Multivitamins Adult 1 cap PO DAILY 05/03/23 05/03/23 History Gummies] Potassium Chloride ER [K-Dur 20] 20 meq PO DAILY 05/03/23 05/03/23 History atenoloL [Tenormin] 50 mg PO DAILY 05/03/23 05/03/23 History tiZANidine [Zanaflex] 2 mg PO DAILY PRN 05/03/23 05/03/23 History Allergies Allergy/AdvReac Type Severity Reaction Status Date / Time hydrocodone bitartrate AdvReac Nausea & Verified 05/03/23 21:39 [From Vicodin] Vomiting propoxyphene napsylate AdvReac Nausea & Verified 05/03/23 21:39 [From Darvocet-N 100] Vomiting Physical Exam Vitals: Vital Signs Temp Pulse Resp BP Pulse Ox 05/04/23 11:40 67 05/04/23 11:29 67 05/04/23 11:20 98.1 F 69 18 123/55 93 L 05/04/23 08:58 66 05/04/23 08:46 66 05/04/23 05:00 98.6 F 05/04/23 04:35 66 114/53 95 05/04/23 01:00 67 20 117/73 95 05/04/23 00:30 65 22 129/61 91 L 05/03/23 22:25 68 05/03/23 22:14 65 05/03/23 20:20 160/70 90 L 05/03/23 20:10 160/70 92 L 05/03/23 20:00 160/72 90 L 05/03/23 19:50 160/72 92 L 05/03/23 19:40 160/72 92 L 05/03/23 19:30 165/77 94 L 05/03/23 19:20 98.2 F 72 18 165/77 96 05/03/23 19:15 61 18 160/72 93 L 05/03/23 15:52 98.3 F 62 24 147/65 96 Intake and Output 05/03/23 05/04/23 05/04/23 22:59 06:59 14:59 Other: Weight 68.039 kg Results 05/04/23 06:44 05/04/23 06:44 Cardiac Enzymes 05/03/23 05/03/23 05/04/23 Range/Units 15:57 15:57 06:44 AST 31 25 (14-36) U/L Troponin I <0.012 (0.000-0.034) ng/mL Coagulation 05/03/23 Range/Units 17:09 PT 10.6 (10.0-12.5) sec APTT 24.6 (22.0-30.0) sec CBC 05/03/23 05/04/23 Range/Units 15:57 06:44 WBC 10.5 6.9 (3.8-10.6) k/uL RBC 5.46 H 5.17 (3.80-5.40) m/uL Hgb 15.3 14.6 (11.4-16.0) gm/dL Hct 46.2 H 44.0 (34.0-46.0) % Plt Count 411 366 (150-450) k/uL Comprehensive Metabolic Panel 05/03/23 05/04/23 Range/Units 15:57 06:44 Sodium 140 139 (137-145) mmol/L Potassium 4.0 4.3 (3.5-5.1) mmol/L Chloride 102 99 (98-107) mmol/L Carbon Dioxide 25 24 (22-30) mmol/L BUN 17 29 H (7-17) mg/dL Creatinine 1.10 H 1.90 H (0.52-1.04) mg/dL Glucose 105 H 191 H (74-99) mg/dL Calcium 10.4 H 10.2 (8.4-10.2) mg/dL AST 31 25 (14-36) U/L ALT 16 15 (4-34) U/L Alkaline Phosphatase 123 111 (38-126) U/L Total Protein 8.6 H 8.0 (6.3-8.2) g/dL Albumin 4.9 4.5 (3.5-5.0) g/dL Current Medications Generic Name Dose Route Start Last Admin Trade Name Freq PRN Reason Stop Dose Admin Albuterol/Ipratropium 3 ml 05/03/23 21:30 05/04/23 11:29 Ipratropium-Albuterol 3 Ml Neb INHALATION 3 ml RT-QID PRN Administration Shortness Of Breath Or Wheezing Amlodipine Besylate 5 mg 05/05/23 09:00 Amlodipine 5 Mg Tab PO DAILY JUAN J Aspirin 81 mg 05/05/23 09:00 Aspirin 81 Mg PO DAILY [facility] Atenolol 50 mg 05/05/23 09:00 Atenolol 50 Mg Tab PO DAILY [facility] Atorvastatin Calcium 80 mg 05/04/23 21:00 Atorvastatin 80 Mg Tab PO HS JUAN J Dapagliflozin 5 mg 05/05/23 09:00 Dapagliflozin Propanediol 5 Mg Tablet PO DAILY [facility] Hydralazine HCl 100 mg 05/04/23 10:53 Hydralazine Hcl 50 Mg Tab PO BID PRN high blood pressure Methylprednisolone Sodium Succinate 60 mg 05/04/23 00:00 05/04/23 11:17 Methylprednisolone Sod Succi 125 Mg/2 Ml Vial IV 60 mg Q6HR JUAN J Administration Morphine Sulfate 4 mg 05/03/23 21:24 Morphine Sulfate 4 Mg/Ml Syringe IV Q4HR PRN Severe Pain (Scale 7 to 10) Naloxone HCl 0.2 mg 05/03/23 21:24 Naloxone 0.4 Mg/Ml 1 Ml Vial IV Q2M PRN Opioid Reversal Ondansetron HCl 4 mg 05/03/23 21:24 05/03/23 21:43 Ondansetron 4 Mg/2 Ml Vial IVP 4 mg Q8HR PRN Administration Nausea And Vomiting Pantoprazole Sodium 40 mg 05/04/23 09:00 05/04/23 08:24 Pantoprazole 40 Mg/10 Ml Vial IV 40 mg DAILY JUAN J Administration Intake and Output 05/03/23 05/04/23 05/04/23 22:59 06:59 14:59 Other: Weight 68.039 kg 05/04/23 06:44 05/04/23 06:44
[2023-05-04] MEDS: MORPHINE SULFATE 4 MG/ML SYRINGE IV PRN (16:32)
[2023-05-04] MEDS ORDERED: IPRATROPIUM-ALBUTEROL 3 ML NEB INHALATION PRN (19:58)
[2023-05-04] MEDS ORDERED: NITROGLYCERIN SL TABS 0.4 MG TAB SUBLINGUAL PRN (19:58)
[2023-05-04] MEDS: HYDROcodone/APAP 7.5-325MG 1 EACH TAB PO SCH (20:26)
[2023-05-04] MEDS: GABAPENTIN 300 MG CAP PO SCH (20:26)
[2023-05-04] MEDS: clonazePAM 1 MG TAB PO SCH (20:28)
[2023-05-04] MEDS: ATORVASTATIN 80 MG TAB PO SCH (20:28)
--- NOTE | 2023-05-04 21:10 | HP ---
HISTORY AND PHYSICAL HISTORY OF PRESENT ILLNESS: This is a 67-year-old white female for coronary artery disease, hypertension, diabetes mellitus, peripheral vascular surgery, dyslipidemia, , seen for congestive heart failure, worsening tremors, feeling funny at home, severe pain in her back, right leg weakness, hip pain, labile blood pressure readings, to be seen by an orthopedic surgeon. She is on IV Lasix. I is 1.1-1.9. EKG sinus rhythm. Chest x- ray, pleural effusions. Echo was 55% ejection fraction. She has not in the past negative, her Lexiscan stress 3 times ago. REVIEW OF SYSTEMS: nervousness. FAMILY HISTORY: Severe family issues, tremors, weakness, shortness of breath. Denies any alcohol or narcotic problem or addiction. PHYSICAL EXAMINATION: VITAL SIGNS: Reviewed. PSYCH: Anxious, nervous. CARDIOVASCULAR: S1, S2. LUNGS: Wheezes at the bases. ABDOMEN: Soft. EXTREMITIES: Peripheral pulses intact, 2+ edema. NEUROLOGIC: Alert and oriented x3. ASSESSMENT: Acute on chronic back pain, hip pain, labile blood pressures, COPD exacerbation, diastolic CHF, acute on chronic kidney injury, dehydration, hypertension, diabetes, nicotine addiction, degenerative disk disease. IV fluids. Check kidneys. Possibly orthopedic ICM and/or spine surgeon. PROGNOSIS: Guarded. Please see further orders. IV steroids updrafts. MMODL / IJN: [id number] /
[2023-05-05] MEDS: MORPHINE SULFATE 4 MG/ML SYRINGE IV PRN ×2 (01:22→12:18)
[2023-05-05] MEDS: methylPREDNISolone SOD SUCCI 125 MG/2 ML VIAL IV SCH ×3 (05:31→17:36)
[2023-05-05] MEDS ORDERED: PANTOPRAZOLE 40 MG TABLET PO SCH (07:30)
[2023-05-05] MEDS ORDERED: FUROSEMIDE 20 MG TAB PO SCH (09:00)
[2023-05-05] MEDS: PANTOPRAZOLE 40 MG/10 ML VIAL IV SCH (09:15)
[2023-05-05] MEDS: amLODIPine 5 MG TAB PO SCH (09:15)
[2023-05-05] MEDS: GABAPENTIN 300 MG CAP PO SCH ×3 (09:15→20:55)
[2023-05-05] MEDS: SERTRALINE 100 MG TAB PO SCH (09:16)
[2023-05-05] MEDS: HYDROcodone/APAP 7.5-325MG 1 EACH TAB PO SCH ×2 (09:16→20:47)
[2023-05-05] MEDS: ASPIRIN 81 MG PO SCH (09:16)
[2023-05-05] MEDS: MULTIVITAMINS, THERA 1 EACH TAB PO SCH (09:18)
[2023-05-05] MEDS: clonazePAM 1 MG TAB PO SCH ×3 (09:18→20:55)
[2023-05-05] MEDS: atenoloL 50 MG TAB PO SCH (09:18)
[2023-05-05] MEDS: DAPAGLIFLOZIN PROPANEDIOL 5 MG TABLET PO SCH (09:18)
[2023-05-05] MEDS: POTASSIUM CHLORIDE ER 20 MEQ TAB.ER PO SCH (09:18)
[2023-05-05 09:34] LABS: BUN/Creat Ratio 24.17 Ratio (12.00-20.00); Calcium 9.8 mg/dL (8.7-10.3); Carbon Dioxide 23.2 mmol/L (21.6-31.8); Chloride 93 mmol/L (96-109); Glucose 266 mg/dL (70-110); Potassium 4.4 mmol/L (3.5-5.5); Sodium 134 mmol/L (135-145)
--- NOTE | 2023-05-05 09:53 | P.CNOR ---
History of Present Illness - [facility] Consult date: 05/05/23 Requesting physician: Gregorio Garber Consult reason: joint pain (Right hip pain and right lower extremity pain), low back pain History of present illness: History of present illness: Patient is a very pleasant 67-year-old female who is seen and examined at bedside for further evaluation of her lumbar spine and right hip. She was previously seen by us in October 2022 in regards to her lumbar spine. Yesterday she presented to the emergency department due to shortness of breath and palpitations. She is currently undergoing further evaluation with medicine and cardiology. Cardiology is currently planning for echocardiogram. Patient also has a history of coronary artery disease with previous stenting. She was on anticoagulation which she states was just discontinued through her primary care provider. She is also having some difficulty with elevated blood pressure at home. In regards to her lumbar spine and right hip, she states she has significant pain and radiates across her lumbar spine, towards the right buttock, over the lateral hip, and down her right posterior lateral thigh. She's had some difficulty controlling her pain. She denies any specific recent injuries. She denies any left lower extremity radiculopathy. She does feel generally weaker with trying to lift her legs off the bed and with knee flexion on the right. She admits to difficulty prolonged activities with her lower extremities. She follows with her primary care provider, Dr. Gregorio Garber, in the outpatient setting. She states she has had some injections for pain at his office. She is currently on hydrocodone as prescribed for pain control but states she does not take this medication frequently. She has not followed with pain management in the outpatient setting but would be willing to do so. She is unable to do this previous he due to anticoagulation use which has recently been discontinued. After her previous evaluation, she was planning for evaluation in the outpatient setting in regards to her lumbar spine but states due to multiple other appointm ents from a medical standpoint she had not scheduled follow-up appointment. She is admitted to medicine. Her other medical diagnoses include coronary artery disease, diabetes mellitus, COPD, history of DVT, hyperlipidemia, and hypertension. Medicine has ordered MRI imaging of the right hip and lumbar spine. Nursing states this will not be performed until this coming 05/07/2023. Ultras ound has also been ordered by medicine for the lower extremities. She has not had other imaging in regards to her lumbar spine or hip during her admission. Patient states following her imaging she would be willing to work to further conservative treatment options with pain management during her admission to the hospital. Past Medical History Past Medical History: Coronary Artery Disease (CAD), COPD, Deep Vein Thrombosis (DVT), Fibromyalgia, GERD/Reflux, Hyperlipidemia, Hypertension, Osteoarthritis (OA), Skin Disorder Additional Past Medical History / Comment(s): DIVERTICULITIS, HX KIDNEY STONE- still has it but it's never moved , Pneumonia, ROSACEA, DVT RLE 2007,gerson cataracts, BILAT ILIAC ARTERIES BLOCKED PER PT, pulmonary fibrosis History of Any Multi-Drug Resistant Organisms: None Reported Past Surgical History: Appendectomy, Bowel Resection, Heart Catheterization With Stent, Hernia Repair, Tubal Ligation Additional Past Surgical History / Comment(s): COLONOSCOPY, PARTIAL LT LOBECTOMY-(pt stated they thought i might of had tb but it was just scar tissue), D & C, 07-17-14 BOWEL RESECTION, HEART CATH [place] 2 STENTS [place] [facility] [place] , 12-18-17 lap robotic assisted repair of inc hernia Past Anesthesia/Blood Transfusion Reactions: No Reported Reaction Date of Last Stent Placement:: 11-15-15 AT [facility] [place] Past Psychological History: Anxiety, Panic Disorder Additional Psychological History / Comment(s): PT IS INDEPENDANT-drives,LIVES WITH SPOUSE and 2 pet cats. has 3 adult children and 10 grandchildren. 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 Smoking Status: Former smoker Past Alcohol Use History: None Reported Additional Past Alcohol Use History / Comment(s): smoked since age 13 1ppd; QUIT 2008 Past Drug Use History: None Reported - Past Family History Mother Family Medical History: Congestive Heart Failure (CHF) Father Family Medical History: Cancer Additional Family Medical History / Comment(s): TYPE OF CANCER NOT KNOWN Medications and Allergies Home Medications Medication Instructions Recorded Confirmed Type clonazePAM [Clonazepam] 1 mg PO TID 02/20/14 05/03/23 History HYDROcodone/APAP 7.5-325MG [Barney 1 tab PO BID 09/14/16 05/03/23 History 7.5-325] Rosuvastatin Calcium [Crestor] 40 mg PO HS 01/10/17 05/03/23 History Aspirin EC [Ecotrin Low Dose] 81 mg PO DAILY 01/27/20 05/03/23 History Sertraline [Zoloft] 100 mg PO DAILY 06/28/22 05/03/23 History amLODIPine [Norvasc] 5 mg PO DAILY 06/28/22 05/03/23 History Albuterol Sulfate [Albuterol 2 puff INHALATION RT-Q6H PRN 10/01/22 05/03/23 History Sulfate Hfa] Acetaminophen Tab [Tylenol] 650 mg PO Q6HR PRN tab 10/05/22 05/03/23 Rx Nitroglycerin Sl Tabs [Nitrostat] 0.4 mg SUBLINGUAL Q5M PRN tab 10/05/22 05/03/23 Rx Pantoprazole [Protonix] 40 mg PO AC-BID 90 Days #180 tab 10/05/22 05/03/23 Rx hydrALAZINE HCL [Apresoline] 100 mg PO BID PRN 10/18/22 05/03/23 History Furosemide [Lasix] 20 mg PO DAILY 90 Days #90 tab 10/24/22 05/03/23 Rx Budesonide/Glycopyr/Formoterol 2 puff INHALATION RT-BID 05/03/23 05/03/23 History [Breztri Aerosphere Inhaler] Dapagliflozin Propanediol [Farxiga] 5 mg PO DAILY 05/03/23 05/03/23 History Gabapentin [Neurontin] 300 mg PO TID 05/03/23 05/03/23 History Ipratropium-Albuterol Nebulize 3 ml INHALATION RT-QID PRN 05/03/23 05/03/23 History [Duoneb 0.5 mg-3 mg/3 ml Soln] Multivitamin [Multivitamins Adult 1 cap PO DAILY 05/03/23 05/03/23 History Gummies] Potassium Chloride ER [K-Dur 20] 20 meq PO DAILY 05/03/23 05/03/23 History atenoloL [Tenormin] 50 mg PO DAILY 05/03/23 05/03/23 History tiZANidine [Zanaflex] 2 mg PO DAILY PRN 05/03/23 05/03/23 History Allergies Allergy/AdvReac Type Severity Reaction Status Date / Time hydrocodone bitartrate AdvReac Nausea & Verified 05/03/23 21:39 [From Vicodin] Vomiting propoxyphene napsylate AdvReac Nausea & Verified 05/03/23 21:39 [From Darvocet-N 100] Vomiting Physical Examination Physical exam: Patient is awake, alert, and oriented 3 Vital signs stable Adequate chest excursion with deep inspiration and expiration Examination of lumbar spine reveals skin is intact with no abrasions, lacerations, or bruises; no erythema, purulence or signs of infection No significant pain with palpation over midline of the lumbosacral spine or over the lumbar paraspinal muscles Dorsiflexion, plantarflexion, and extensor hallucis longus positive sustained bilaterally Patient does have some generalized weakness when trying to perform hip flexion bilaterally Patient is able to perform knee flexion bilaterally but has some slight difficulty on the right Straight leg test negative bilateral lower extremities No signs or symptoms of DVT; no calf pain No pain with internal and external rotation of the hips bilaterally Neurovascularly intact Results Pertinent studies: CT of the lumbar spine taken on 10/19/2022: Overall alignment is adequately maintained; L1-2 significant degenerative disc disease with anterior osteophytic spurring and slight lateral listhesis; no vertebral body compression fracture; slight degenerative scoliosis; there may be some spinal canal narrowing at L1-2 but no obvious herniated nucleus pulposus or stenosis - Labs Labs: Abnormal Lab Results - Last 24 Hours (Table) 05/05/23 Range/Units 06:03 Sodium 134 L (135-145) mmol/L Chloride 93 L (96-109) mmol/L Anion Gap 17.80 H (4.00-12.00) mmol/L BUN 58.0 H (9.0-27.0) mg/dL Creatinine 2.4 H (0.6-1.5) mg/dL Est GFR (CKD-EPI) 21 L (>=60) BUN/Creatinine Ratio 24.17 H (12.00-20.00) Ratio Glucose 266 H (70-110) mg/dL H & H 05/03/23 05/04/23 Range/Units 15:57 06:44 Hgb 15.3 14.6 (11.4-16.0) gm/dL Hct 46.2 H 44.0 (34.0-46.0) % Coagulation 05/03/23 Range/Units 17:09 INR 1.0 (<1.2) Result Diagrams: 05/04/23 06:44 05/05/23 06:03 Assessment and Plan Assessment: Assessment: Acute on chronic low back pain L1-2 degenerative disc disease and anterior osteophytic spurring L1-2 lateral listhesis Right lower extremity radiculopathy Some weakness with hip flexion bilaterally and knee flexion on the right Slight degenerative scoliosis Shortness of breath Diabetes mellitus Coronary artery disease History of DVT Hyperlipidemia History of hypertension (1) Lumbosacral pain Current Visit: Yes Status: Acute Code(s): M54.50 - LOW BACK PAIN, UNSPECIFIED SNOMED Code(s): 722063563 (2) Lumbar back pain with radiculopathy affecting right lower extremity Current Visit: Yes Status: Acute Code(s): M54.16 - RADICULOPATHY, LUMBAR REGION SNOMED Code(s): 373414125 (3) Right hip pain Current Visit: Yes Status: Acute Code(s): M25.551 - PAIN IN RIGHT HIP SNOMED Code(s): 07747602 (4) Lower extremity weakness Current Visit: Yes Status: Acute Code(s): R29.898 - OTH SYMPTOMS AND SIGNS INVOLVING THE MUSCULOSKELETAL SYSTEM SNOMED Code(s): 148861913 (5) Acute exacerbation of chronic low back pain Current Visit: Yes Status: Acute Code(s): M54.50 - LOW BACK PAIN, UNSPECIFIED; G89.29 - OTHER CHRONIC PAIN SNOMED Code(s): 332388393 (6) Lumbar degenerative disc disease Current Visit: Yes Status: Acute Code(s): M51.36 - OTHER INTERVERTEBRAL DISC DEGENERATION, LUMBAR REGION SNOMED Code(s): 49301174 (7) Osteophyte Current Visit: Yes Status: Acute Code(s): M25.70 - OSTEOPHYTE, UNSPECIFIED JOINT SNOMED Code(s): 883945229492193 (8) Spondylolisthesis, lumbar region Current Visit: Yes Status: Acute Code(s): M43.16 - SPONDYLOLISTHESIS, LUMBAR REGION SNOMED Code(s): 671512874060590 (9) Shortness of breath Current Visit: Yes Status: Acute Code(s): R06.02 - SHORTNESS OF BREATH SNOMED Code(s): 305046926 (10) History of DVT (deep vein thrombosis) Current Visit: Yes Status: Acute Code(s): Z86.718 - PERSONAL HISTORY OF OTHER VENOUS THROMBOSIS AND EMBOLISM SNOMED Code(s): 387500333 (11) Hyperlipidemia Current Visit: Yes Status: Acute Code(s): E78.5 - HYPERLIPIDEMIA, UNSPECIFIED SNOMED Code(s): 15321711 (12) Hypertension Current Visit: Yes Status: Acute Code(s): I10 - ESSENTIAL (PRIMARY) HYPERTENSION SNOMED Code(s): 44321333 (13) CAD (coronary artery disease) Current Visit: No Status: Acute Code(s): I25.10 - ATHSCL HEART DISEASE OF [place] CORONARY ARTERY W/O ANG PCTRS SNOMED Code(s): 17432241 (14) Diabetes Current Visit: No Status: Acute Code(s): E11.9 - TYPE 2 DIABETES MELLITUS WITHOUT COMPLICATIONS SNOMED Code(s): 15929840 Plan: Plan: 1. Patient does have a history of chronic low back pain. She's been treated and evaluated in the outpatient setting by her primary care provider. She has had some injections for her pain at her primary care provider's office. She has been intermittently taking hydrocodone as prescribed as needed for pain control. She does admit to increased difficulty prolonged ambulation or standing as it does exacerbate her low back pain. She has pain in her lumbosacral spine degrees with right buttock, over the right lateral hip, down the right posterior lateral thigh. She feels her symptoms have been worsening. Previouslumbar CT imaging does show some degenerative changes most significant at L1-2 with degenerative disc disease, lateral listhesis, and osteophytic spurring. There may be evidence of canal narrowing at this level. We did discuss she could benefit from lumbar MRI imaging as well as consultation with pain management and possibly working through formal physical therapy. Currently, MRI imaging has been ordered of her right hip and lumbar spine by her primary care provider. She has not had other imaging in regards to her lumbar spine or hip during her admission. Currently, we'll plan to obtain x-ray imaging of the lumbar spine, right hip, and pelvis for review. Currently, MRI imaging is not scheduled to be performed until this coming 05/07/2023. We did discuss the plan to review her x-ray imaging and t hen review MRI imaging once completed. She was recently on anticoagulation which has been discontinued. We did discuss we can consider consultation with pain management during her admission to the hospital. She feels this would be a good plan of care and she would be willing to work through further treatment with pain management. 2. Patient will continue to be seen and examined by medicine and cardiology for her multiple other medical diagnoses; multiple imaging modalities including lumbar MRI, right hip MRI, lower extremity ultrasound, and 2-D echocardiogram are all pending Time with Patient: Greater than 30 (Including obtaining history, physical examination, reviewing of imaging, and dictation.)
[2023-05-05] MEDS ORDERED: DEXTROSE 50% SYRINGE 50 ML IVP PRN ×2 (10:42)
--- NOTE | 2023-05-05 10:49 | P.PN ---
Subjective Progress Note Date: 05/05/23 Principal diagnosis: Back pain acute on chronic Hypertension hypertensive cardiovascular disease with labile blood pressure at home Acute on chronic exacerbation of congestive heart failure Chronic diastolic heart failure Coronary artery disease with history of stent placement Peripheral vascular disease with history of lower extremity intervention Dyslipidemia Hypertension hypertensive perivascular disease Type 2 diabetes mellitus History of smoking and nicotine use 05/05/2023, patient seen eval examined during rounds labs reviewed medications reviewed care plan discussed, patient is 59-year-old female with a past medical history significant for congestive heart failure, coronary artery disease with previous stenting, hypertension, diabetes, hyperlipidemia, peripheral vascular disease with previous lower extremity stenting, chronic back pain, and former ni cotine dependence. Patient has progressive shortness of breath yesterday that has since resolved. Her main complaint at the time of examination is back pain and she is requesting to be seen by an orthopedic surgeon. She was given 1 dose of IV Lasix by the emergency room physician. Her creatinine increased from 1.10 to 1.90. Chest x-ray suggestive of interstitial edema bilateral small pleural effusion, prior echocardiogram back in June 2022 ejection fraction is 55% with mild MR and TR with Performing 2017 stent in PDA Objective - Vital Signs Vital signs: Vital Signs Temp 97.4 F L 05/05/23 07:29 Pulse 75 05/05/23 07:29 Resp 15 05/05/23 07:29 BP 119/62 05/05/23 07:29 Pulse Ox 98 05/05/23 07:29 FiO2 Intake & Output 05/04/23 05/05/23 05/05/23 18:59 06:59 18:59 Intake Total 500 Balance 500 Weight 68.039 kg 69.5 kg Intake: Oral 500 Other: Voiding Method Toilet # Voids 3 - Labs CBC & Chem 7: 05/04/23 06:44 05/05/23 06:03 Labs: Abnormal Lab Results - Last 24 Hours (Table) 05/05/23 Range/Units 06:03 Sodium 134 L (135-145) mmol/L Chloride 93 L (96-109) mmol/L Anion Gap 17.80 H (4.00-12.00) mmol/L BUN 58.0 H (9.0-27.0) mg/dL Creatinine 2.4 H (0.6-1.5) mg/dL Est GFR (CKD-EPI) 21 L (>=60) BUN/Creatinine Ratio 24.17 H (12.00-20.00) Ratio Glucose 266 H (70-110) mg/dL Assessment and Plan Assessment: Back pain acute on chronic Hypertension hypertensive cardiovascular disease with labile blood pressure at home Acute on chronic exacerbation of congestive heart failure Chronic diastolic heart failure Coronary artery disease with history of stent placement Peripheral vascular disease with history of lower extremity intervention Dyslipidemia Hypertension hypertensive perivascular disease Type 2 diabetes mellitus History of smoking and nicotine use Plan: Continue pain medications with [place], with breakthrough pain with morphine Continue bronchodilator with DuoNeb 4 times a day and when necessary as well as steroids currently on 60 mg IV every 6 we'll plan to continue Blood pressure control with Norvasc atenolol hydralazine Continue gentle diuresis Monitor renal functions closely Continue antihypertensive agent and anti-lipid agent as noted above along with statins Continue oral hypoglycemic agent as well as shorten Insulin Cardiovascular services following follow up on echocardiogram Orthopedic service including spine surgery have evaluated the patient awaiting further recommendation thought processes
[2023-05-05] MEDS: IPRATROPIUM-ALBUTEROL 3 ML NEB INHALATION PRN ×3 (11:55→19:37)
--- NOTE | 2023-05-05 12:05 | CA ---
Transthoracic Echo Report Name: Gianna Dale Age: 67 Gender: F : 1955 Exam Date: 05/04/2023 16:37 Exam Location: [facility] Ht (in): 59 Wt (lb): 150 Ordering Physician: Olesya Griffin Attending/Referring Phys: [id number], Elias Squilgeer Andie Coffey RDCS Procedure CPT: Indications: LV function, SOB Cardiac Hx: Technical Quality: Technically difficult study Contrast 1: Definity Total Dose (mL): 2 Contrast 2: Total Dose (mL): MEASUREMENTS (Male / Female) Normal Values 2D ECHO LV Diastolic Diameter PLAX 4.4 cm 4.2 - 5.9 / 3.9 - 5.3 cm LV Systolic Diameter PLAX 2.1 cm IVS Diastolic Thickness 1.0 cm 0.6 - 1.0 / 0.6 - 0.9 cm LVPW Diastolic Thickness 1.1 cm 0.6 - 1.0 / 0.6 - 0.9 cm LV Relative Wall Thickness 0.5 RV Internal Dim ED PLAX 2.7 cm M-MODE Aortic Root Diameter MM 3.0 cm LA Systolic Diameter MM 3.6 cm LA Ao Ratio MM 1.2 AV Cusp Separation MM 1.6 cm DOPPLER AV Peak Velocity 146.4 cm/s AV Peak Gradient 8.6 mmHg AV Mean Velocity 88.2 cm/s AV Mean Gradient 3.8 mmHg AV Velocity Time Integral 24.8 cm LVOT Peak Velocity 116.2 cm/s LVOT Peak Gradient 5.4 mmHg LVOT Velocity Time Integral 20.3 cm MV Area PHT 3.5 cm??? Mitral E Point Velocity 72.2 cm/s Mitral A Point Velocity 75.3 cm/s Mitral E to A Ratio 1.0 MV Deceleration Time 219.4 ms MV E' Velocity 4.0 cm/s Mitral E to MV E' Ratio 18.2 TR Peak Velocity 134.2 cm/s TR Peak Gradient 7.2 mmHg Right Ventricular Systolic Press 12.2 mmHg FINDINGS Left Ventricle Mildly increased left ventricular wall thickness. Left ventricular cavity size normal. Normal left ventricular systolic function with no obvious regional wall motion abnormalities. Left ventricular ejection fraction is estimated at 50-55 %. Right Ventricle Normal right ventricular size and function. Right Atrium Normal right atrial size. Left Atrium Normal left atrial size. Mitral Valve Structurally normal mitral valve. Trace to mild mitral regurgitation. Aortic Valve No aortic valve stenosis or regurgitation. Tricuspid Valve Structurally normal tricuspid valve. Mild tricuspid regurgitation. Pulmonic Valve Trace pulmonic regurgitation. Pericardium Small pericardial effusion. Aorta Normal size aortic root and proximal ascending aorta. CONCLUSIONS Left ventricular ejection fraction 50-55% Trace to mild mitral regurgitation Mild tricuspid regurgitation Small pericardial effusion without tamponade physiology Previewed by: Dr. Bo Good DO (Electronically Signed) Final Date: 05 May 2023 12:05
[2023-05-05 12:06] LABS: Glucose,Whole Blood 389 mg/dL (70-110)
[2023-05-05] MEDS: INSULIN ASPART (NovoLOG) 100 UNIT/ML VIAL SQ SCH ×3 (12:14→20:55)
[2023-05-05] MEDS: SODIUM CHLORIDE 0.9% 1,000 ML IV SCH ×2 (12:14→17:37)
--- NOTE | 2023-05-05 15:14 | XR ---
EXAMINATION TYPE: XR lumbar spine 2 or 3V DATE OF EXAM: 05/05/2023 COMPARISON: None HISTORY: Low back pain TECHNIQUE: 3 view lumbar spine FINDINGS: There 5 lumbar-type vertebral bodies. Pedicles are intact. Disc space narrowing is present L4-5, L2-3. The L4 inferior endplate may have mild loss of vertebral body height. Vertebral body heig hts are otherwise preserved. Spondylosis is present. Vascular calcification is within the aorta. Sonny c stents are present. IMPRESSION: 1. Degenerative disc changes L2-3 and L4-5. 2. Mild inferior endplate loss at L4 may be present.
--- NOTE | 2023-05-05 15:35 | P.PN ---
Subjective Progress Note Date: 05/05/23 HISTORY OF PRESENT ILLNESS: This is a 59-year-old female with a past medical history significant for congestive heart failure, coronary artery disease with previous stenting, hypertension, diabetes, hyperlipidemia, peripheral vascular disease with previous lower extremity stenting, chronic back pain, and former nicotine dependence. Patient has not been seen in the office in 3 years. She had previously seen Dr. Kim in the clinic. We have been asked to see the patient in consultation for congestive heart failure. Patient examined at the bedside in the emergency room. The patient states over the past couple days she has been feeling "funny" at home. She states that she checks her blood pressure every morning and she has been having labile blood pressure readings. She reports shortness of breath yesterday that has since resolved. Her main complaint at the time of examination is back pain and she is requesting to be seen by an orthopedic surgeon. She was given 1 dose of IV Lasix by the emergency room physician. Her creatinine increased from 1.10 to 1.90. * EKG reveals sinus mechanism with no signs of acute ischemia * Chest xray cardiac megaly, pulmonary vascular congestion and bilateral pleural effusions * Most recent echocardiogram obtained in June 2022 revealing ejection fraction 55%, mild MR, and mild TR * Cardiac catheterization history: 2016 with patent stent in the PDA * Patient underwent Lexiscan stress test in January 2020 which was negative for ischemia 05/05/2023 Creat increased 2.4. She is feeling sore today with back pain. Denies any chest pain or pressure. No shortness of breath or dizziness. No swelling. Lower extermity US pending. ECHO with EF 50-55%, small pericardial effusion without tamponade physiology. PHYSICAL EXAM: VITAL SIGNS: Reviewed. GENERAL: Well-developed in no acute distress. HEENT: Head is normocephalic. Pupils are equal, round. Sclerae anicteric. LUNGS: Respirations even and unlabored. Lungs essentially clear to auscultation bilaterally. HEART: Regular rate and rhythm. S1 and S2 heard. ABDOMEN: Soft. Nondistended. Nontender. EXTREMITIES: Normal range of motion. No clubbing or cyanosis. Peripheral pulses intact. No lower extremity edema. NEUROLOGIC: Awake and alert. Oriented x 3. ASSESSMENT: Acute on chronic back pain Labile blood pressures at home, currently stable Mild acute exacerbation of chronic heart failure with preserved ejection fraction Acute kidney injury Coronary artery disease with previous stenting Peripheral vascular disease with previous lower extremity intervention Hypertension Hyperlipidemia Diabetes Former nicotine dependence Small pericardial effusion PLAN: Hold diuretics for now. Agree with IV fluids. MRI L-spine and hip scheduled for Sunday, ortho following. Continue to monitor blood pressure. Continue current medications. OK to hold her plavix. Cardiology to sign off, call with any questions or concerns. Nurse practitioner note has been reviewed by physician. Signing provider agrees with the documented findings, assessment, and plan of care. Objective - Vital Signs Vital signs: Vital Signs Temp 97.4 F L 05/05/23 07:29 Pulse 75 05/05/23 07:29 Resp 15 05/05/23 07:29 BP 119/62 05/05/23 07:29 Pulse Ox 98 05/05/23 07:29 FiO2 Intake & Output 05/04/23 05/05/23 05/05/23 18:59 06:59 18:59 Intake Total 500 Balance 500 Weight 68.039 kg 69.5 kg Intake: Oral 500 Other: Voiding Method Toilet # Voids 3 - Labs CBC & Chem 7: 05/04/23 06:44 05/05/23 06:03 Labs: Abnormal Lab Results - Last 24 Hours (Table) 05/05/23 Range/Units 06:03 Sodium 134 L (135-145) mmol/L Chloride 93 L (96-109) mmol/L Anion Gap 17.80 H (4.00-12.00) mmol/L BUN 58.0 H (9.0-27.0) mg/dL Creatinine 2.4 H (0.6-1.5) mg/dL Est GFR (CKD-EPI) 21 L (>=60) BUN/Creatinine Ratio 24.17 H (12.00-20.00) Ratio Glucose 266 H (70-110) mg/dL
--- NOTE | 2023-05-05 16:50 | US ---
EXAMINATION TYPE: US arterial LE multi level DATE OF EXAM: 05/05/2023 9:03 AM CLINICAL INDICATION: Female, 67 years old with history of pad; PVD restless legs History of: Smoker: previous Hypertension: Yes Diabetic: No Hyperlipidemia: Yes TIA/CVA: No Previous Vascular Surgery: Yes CAD: No NV: No Vascular Ulcers: No Claudication: No Gangrene: No Doppler Waveforms: Right: Biphasic forms in the popliteal posterior tibial vessels and appears to be within the dorsalis pedis. Monophasic waveforms in the right digit Left: Monophasic waveform in the popliteal artery. Monophasic or biphasic wave forms are in the poste rior tibial and dorsalis pedis artery. The left digit has monophasic waveforms. Right Brachial Pressure: 156 Left Brachial Pressure: 143 Ankle-Brachial Indices: Right: 0.78 Left: 0.78 Toe Brachial Indices: Right: 0.48 Left: 0.60 IMPRESSION: 1. Diminished ratios within the dorsalis pedis and posterior tibial arteries as well as the digits. B iphasic and monophasic waveforms present. Findings suggestive for more proximal arterial stenosis.
[2023-05-05 17:29] LABS: Glucose,Whole Blood 304 mg/dL (70-110)
[2023-05-05] MEDS: CYCLOBENZAPRINE 10 MG TAB PO PRN (17:36)
--- NOTE | 2023-05-05 19:03 | XR ---
EXAMINATION TYPE: XR Hip Complete RT DATE OF EXAM: 05/05/2023 1:10 PM CLINICAL INDICATION:Female, 67 years old with history of Right hip pain; PHH COMPARISON: None. TECHNIQUE: Frontal and frog-leg lateral views of the right hip. FINDINGS: Osseous mineralization appears appropriate. No definite acute fracture lucency or dislocation is seen . There is mild/moderate right hip osteoarthritis. Moderate arterial vascular calcifications. No disc rete soft tissue abnormality. If there is a history of trauma and/or the patient cannot bear weight, recommend nonweightbearing unt il cross-sectional imaging can be performed. IMPRESSION: No radiographic evidence of acute fracture or dislocation.
[2023-05-05] MEDS: ATORVASTATIN 80 MG TAB PO SCH (20:47)
[2023-05-05 20:52] LABS: Glucose,Whole Blood 290 mg/dL (70-110)
[2023-05-06] MEDS: methylPREDNISolone SOD SUCCI 125 MG/2 ML VIAL IV SCH ×2 (00:23→05:15)
[2023-05-06] MEDS: MORPHINE SULFATE 4 MG/ML SYRINGE IV PRN ×2 (02:12→06:20)
[2023-05-06] MEDS: CYCLOBENZAPRINE 10 MG TAB PO PRN (05:15)
[2023-05-06] MEDS: SODIUM CHLORIDE 0.9% 1,000 ML IV SCH ×3 (05:16→20:07)
[2023-05-06 06:12] LABS: Glucose,Whole Blood 185 mg/dL (70-110)
[2023-05-06] MEDS: INSULIN ASPART (NovoLOG) 100 UNIT/ML VIAL SQ SCH ×4 (06:20→21:07)
[2023-05-06 07:51] LABS: African American GFR (CKD) 28 (>60 ml/min/1.73 sqM); Anion Gap 12 mmol/L; Blood Urea Nitrogen 64 mg/dL (7-17); Calcium 9.2 mg/dL (8.4-10.2); Carbon Dioxide 25 mmol/L (22-30); Chloride 104 mmol/L (98-107); Glucose 185 mg/dL (74-99); Non-African American GFR(CKD) 25 (>60 ml/min/1.73 sqM); Potassium 4.6 mmol/L (3.5-5.1); Sodium 141 mmol/L (137-145)
[2023-05-06] MEDS: IPRATROPIUM-ALBUTEROL 3 ML NEB INHALATION PRN ×3 (07:55→19:39)
[2023-05-06] MEDS: ASPIRIN 81 MG PO SCH (08:31)
[2023-05-06] MEDS: HYDROcodone/APAP 7.5-325MG 1 EACH TAB PO SCH ×2 (08:31→20:06)
[2023-05-06] MEDS: DAPAGLIFLOZIN PROPANEDIOL 5 MG TABLET PO SCH (08:31)
[2023-05-06] MEDS: PANTOPRAZOLE 40 MG/10 ML VIAL IV SCH (08:31)
[2023-05-06] MEDS: clonazePAM 1 MG TAB PO SCH ×3 (08:31→21:08)
[2023-05-06] MEDS: MULTIVITAMINS, THERA 1 EACH TAB PO SCH (08:32)
[2023-05-06] MEDS: atenoloL 50 MG TAB PO SCH (08:32)
[2023-05-06] MEDS: SERTRALINE 100 MG TAB PO SCH (08:32)
[2023-05-06] MEDS: amLODIPine 5 MG TAB PO SCH (08:32)
[2023-05-06] MEDS: GABAPENTIN 300 MG CAP PO SCH ×3 (08:32→21:08)
[2023-05-06] MEDS: POTASSIUM CHLORIDE ER 20 MEQ TAB.ER PO SCH (08:32)
--- NOTE | 2023-05-06 09:53 | P.PN ---
Progress Note - Text Progress Note Date: 05/06/23 Orthopedics: History of present illness: Patient is a very pleasant 67-year-old female who is seen and examined at bedside for further evaluation of her lumbar spine and right hip. She was previously seen by us in October 2022 in regards to her lumbar spine. Sunday she presented to the emergency department due to shortness of breath and palpitations. She is currently undergoing further evaluation with medicine and cardiology. Cardiology followed with the patient yesterday and has signed off. Patient also has a history of coronary artery disease with previous stenting. She was on anticoagulation which she states was just discontinued through her primary care provider. She is also having some difficulty with elevated blood pressure at home. She is currently undergoing a breathing treatment at the bedside. She is being seen by pulmonology as well. She has not had any significant improvement in regards to her pain since yesterday. Today she states her low back pain is more significant than her lower extremity pain. She states her pain at her lumbar spine is better controlled while standing and can be exacerbated with lying down or sitting. In regards to her lumbar spine and right hip, she states she has significant pain and radiates across her lumbar spine, towards the right buttock, over the lateral hip, and down her right posterior lateral thigh. She's had some difficulty controlling her pain. She denies any specific recent injuries. She denies any left lower extremity radiculopathy. She does feel generally weaker with trying to lift her legs off the bed and with knee flexion on the right. She admits to difficulty prolonged activities with her lower extremities. She follows with her primary care provider, Dr. Gregorio Garber, in the outpatient setting. She states she has had some injections for pain at his office. She is currently on hydrocodone as prescribed for pain control but states she does not take this medication frequently. She has not followed with pain management in the outpatient setting but would be willing to do so. She is unable to do this previous he due to anticoagulation use which has recently been discontinued. After her previous evaluation, she was planning for evaluation in the outpatient setting in regards to her lumbar spine but states due to multiple other appointments from a medical standpoint she had not scheduled follow-up appointment. She is admitted to medicine. Her other medical diagnoses include coronary artery disease, diabetes mellitus, COPD, history of DVT, hyperlipidemia, and hypertension. Medicine has ordered MRI imaging of the right hip and lumbar spine. Nursing states this will not be performed until this coming 05/07/2023. Ultrasound has also been ordered by medicine for the lower extremities. She has not had other imaging in regards to her lumbar spine or hip during her admission. X-ray imaging of the right hip and lumbar spine was performed yesterday. This has been reviewed by myself. Patient states following her imaging she would be willing to work to further conservative treatment options with pain management during her admission to the hospital. Ultrasound performed and lower extremities yesterday was negative for DVT. Physical exam: Patient is awake, alert, and oriented 3 Vital signs stable Adequate chest excursion with deep inspiration and expiration; currently undergoing a breathing treatment Examination of lumbar spine reveals skin is intact with no abrasions, lacerations, or bruises; no erythema, purulence or signs of infection No significant pain with palpation over midline of the lumbosacral spine or over the lumbar paraspinal muscles Dorsiflexion, plantarflexion, and extensor hallucis longus positive sustained bilaterally Patient does have some generalized weakness when trying to perform hip flexion bilaterally with better range of motion of her lower extremities today Patient is able to perform knee flexion bilaterally without significant difficulty today Straight leg test negative bilateral lower extremities No signs or symptoms of DVT; no calf pain No pain with internal and external rotation of the hips bilaterally Neurovascularly intact Pertinent studies: X-rays of the lumbar spine taken on 05/05/2023: Degenerative scoliosis; L2-3 significant degenerative disc disease and lateral listhesis with osteophytic spurring; L4-5 worsening degenerative disc disease as compared to previous study taken from 10/19/2022; L4 inferior endplate compression deformity of indeterminate age with some apparent sclerosis; evidence of arterial stenting X-ray of the right hip taken on 05/05/2023: Mild to moderate osteoarthritis of the right hip joint spacing; no evidence of fracture dislocation at the right hip CT of the lumbar spine taken on 10/19/2022: Overall alignment is adequately maintained; L2-3 significant degenerative disc disease with anterior osteophytic spurring and slight lateral listhesis; no vertebral body compression fracture; slight degenerative scoliosis; there may be some spinal canal narrowing at L2-3 but no obvious herniated nucleus pulposus or stenosis Assessment: Acute on chronic low back pain L4 inferior endplate compression fracture deformity of indeterminate age L4-5 worsening degenerative disc disease L2-3 degenerative disc disease and anterior osteophytic spurring L2-3 lateral listhesis Right lower extremity radiculopathy Some weakness with hip flexion bilaterally and knee flexion on the right Degenerative scoliosis Mild to moderate right hip osteoarthritis Shortness of breath Diabetes mellitus Coronary artery disease History of DVT Hyperlipidemia History of hypertension Plan: 1. Patient does have a history of chronic low back pain. She's been treated and evaluated in the outpatient setting by her primary care provider. She has had some injections for her pain at her primary care provider's office. She has been intermittently taking hydrocodone as prescribed as needed for pain control. She does admit to increased difficulty prolonged ambulation or standing as it does exacerbate her low back pain. She has pain in her lumbosacral spine degrees with right buttock, over the right lateral hip, down the right posterior lateral thigh. She feels her symptoms have been worsening. Previous lumbar CT imaging was once again reviewed. Degenerative changes were most significant at L2-3 not L1-22. The CT does show some degenerative changes most significant at L2-3 with degenerative disc disease, lateral listhesis, and osteophytic spurring. There may be evidence of canal narrowing at this level. We did discuss she could benefit from lumbar MRI imaging as well as consultation with pain management and possibly working through formal physical therapy. Currently, MRI imaging has been ordered of her right hip and lumbar spine by her primary care provider. She has not had other imaging in regards to her lumbar spine or hip during her admission. Currently, MRI imaging is not scheduled to be performed until this coming 05/07/2023. We did discuss the plan to review MRI imaging once completed. She was recently on anticoagulation which has been discontinued. We did discuss we can consider consultation with pain management during her admission to the hospital depending on her MRI results. She feels this would be a good plan of care and she would be willing to work through further treatment with pain management. Yesterday we did obtain x-ray imaging of the lumbar spine and right hip. She does have [id number] osteoarthritic set her right hip. X-ray imaging also showed evidence of L4 inferior endplate compression fracture of indeterminate age with some apparent sclerosis. Given her ongoing pain and x-ray imaging results, we'll plan for bracing. A prescription has been written and provided to case management for an LSO brace. Once this brace is delivered and fitted appropriately, patient should wear this brace while sitting upright at greater than 45, during increase activities, during ambulation. Brace does not have to or while lying in bed or while bathing. We did discuss patient should avoid excessive bending, twisting, lifting activities. No lifting greater than 10 pounds. We did discuss the fracture is of indeterminate age. We did discuss we will know more of the chronicity of this fracture following her lumbar MRI. The L4 inferior endplate compression fracture appears acute as compared to previous CT imaging from 10/19/2022, but there does appear to be some sclerosis of the endplate and this could be chronic. She has not had a recent injury. Given her ongoing and worsening pain we will plan for bracing. 2. Patient will continue to be seen and examined by medicine and pulmonology
--- NOTE | 2023-05-06 10:41 | P.PN ---
Subjective Progress Note Date: 05/06/23 Principal diagnosis: Back pain acute on chronic Hypertension hypertensive cardiovascular disease with labile blood pressure at home Acute on chronic exacerbation of congestive heart failure Chronic diastolic heart failure Coronary artery disease with history of stent placement Peripheral vascular disease with history of lower extremity intervention Dyslipidemia Hypertension hypertensive perivascular disease Type 2 diabetes mellitus History of smoking and nicotine use 05/06/2023, patient seen eval examined during rounds labs reviewed medications reviewed care plan discussed, respiratory status stable, on as needed oxygen, most of time she is on oxygen at home at nighttime. Currently her pain in the back and hip is stable, orthopedic service and spine surgery is following, patient has been on pain medicine slightly somnolent but readily arousable patient being continued on her home medicine also on IV steroids 60 mg every 6 we'll start tapering it down repeat labs tomorrow as well 05/05/2023, patient seen eval examined during rounds labs reviewed medications reviewed care plan discussed, patient is 59-year-old female with a past medical history significant for congestive heart failure, coronary artery disease with previous stenting, hypertension, diabetes, hyperlipidemia, peripheral vascular disease with previous lower extremity stenting, chronic back pain, and former nicotine dependence. Patient has progressive shortness of breath yesterday that has since resolved. Her main complaint at the time of examination is back pain and she is requesting to be seen by an orthopedic surgeon. She was given 1 dose of IV Lasix by the emergency room physician. Her creatinine increased from 1.10 to 1.90. Chest x-ray suggestive of interstitial edema bilateral small pleural effusion, prior echocardiogram back in June 2022 ejection fraction is 55% with mild MR and TR with Performing 2017 stent in PDA Objective - Vital Signs Vital signs: Vital Signs Temp 97.7 F 05/06/23 07:33 Pulse 74 05/06/23 08:07 Resp 17 05/06/23 07:33 BP 124/74 05/06/23 07:33 Pulse Ox 96 05/06/23 07:33 FiO2 Intake & Output 05/05/23 05/06/23 05/06/23 18:59 06:59 18:59 Weight 71.4 kg Other: Voiding Method Toilet Toilet Toilet # Voids 2 2 - Constitutional General appearance: Present: average body habitus, cooperative, disheveled - EENT Eyes: Present: EOMI, PERRLA ENT: Present: normal oropharynx Ears: bilateral: normal - Neck Neck: Present: normal ROM Carotids: bilateral: upstroke normal Thyroid: bilateral: normal size - Respiratory Respiratory: bilateral: diminished - Cardiovascular Rhythm: regular Heart sounds: normal: S1, S2 - Integumentary Integumentary: Present: normal turgor - Neurologic Neurologic: Present: CNII-XII intact - Musculoskeletal Musculoskeletal: Present: gait normal, generalized weakness, strength equal bilaterally - Psychiatric Psychiatric: Present: A&O x's 3, appropriate affect, intact judgment & insight - Labs CBC & Chem 7: 05/04/23 06:44 05/06/23 05:53 Labs: Abnormal Lab Results - Last 24 Hours (Table) 05/05/23 05/05/23 05/05/23 Range/Units 12:05 17:28 20:50 BUN (7-17) mg/dL Creatinine (0.52-1.04) mg/dL Glucose (74-99) mg/dL POC Glucose (mg/dL) 389 H 304 H 290 H (70-110) mg/dL Hemoglobin A1c (<=6.0) % 05/06/23 05/06/23 05/06/23 Range/Units 05:53 05:53 06:11 BUN 64 H (7-17) mg/dL Creatinine 2.04 H (0.52-1.04) mg/dL Glucose 185 H (74-99) mg/dL POC Glucose (mg/dL) 185 H (70-110) mg/dL Hemoglobin A1c 6.7 H (<=6.0) % Assessment and Plan Assessment: Back pain acute on chronic Hypertension hypertensive cardiovascular disease with labile blood pressure at home Acute on chronic exacerbation of congestive heart failure Chronic diastolic heart failure Coronary artery disease with history of stent placement Peripheral vascular disease with history of lower extremity intervention Dyslipidemia Hypertension hypertensive perivascular disease Type 2 diabetes mellitus History of smoking and nicotine use Plan: Continue pain medications with Dunbar, with breakthrough pain with morphine Continue bronchodilator with DuoNeb 4 times a day and when necessary as well as steroids currently on 60 mg IV every 6 we'll plan to continue Blood pressure control with Norvasc atenolol hydralazine Continue gentle diuresis Monitor renal functions closely Continue antihypertensive agent and anti-lipid agent as noted above along with statins Continue oral hypoglycemic agent as well as shorten Insulin Cardiovascular services following follow up on echocardiogram Orthopedic service including spine surgery have evaluated the patient awaiting further recommendation thought processes Time with Patient: Greater than 30
[2023-05-06 11:52] LABS: Glucose,Whole Blood 203 mg/dL (70-110)
[2023-05-06 17:21] LABS: Glucose,Whole Blood 180 mg/dL (70-110)
[2023-05-06] MEDS: ATORVASTATIN 80 MG TAB PO SCH (20:06)
[2023-05-06 20:11] LABS: Glucose,Whole Blood 166 mg/dL (70-110)
[2023-05-06] MEDS: methylPREDNISolone SOD SUCCI 40 MG/ML 1 ML VIAL IV SCH (21:07)
[2023-05-07] MEDS: SODIUM CHLORIDE 0.9% 1,000 ML IV SCH ×4 (04:07→22:17)
[2023-05-07 06:01] LABS: Glucose,Whole Blood 215 mg/dL (70-110)
[2023-05-07] MEDS: INSULIN ASPART (NovoLOG) 100 UNIT/ML VIAL SQ SCH ×4 (06:19→22:16)
[2023-05-07] MEDS: IPRATROPIUM-ALBUTEROL 3 ML NEB INHALATION PRN (08:24)
--- NOTE | 2023-05-07 08:30 | P.PN ---
Progress Note - Text Progress Note Date: 05/07/23 Orthopedics: History of present illness: Patient is a very pleasant 67-year-old female who is seen and examined at bedside for further evaluation of her lumbar spine and right hip. She was previously seen by us in October 2022 in regards to her lumbar spine. Sunday she presented to the emergency department due to shortness of breath and palpitations. She is currently undergoing further evaluation with medicine and cardiology. Cardiology followed with the patient yesterday and has signed off. Patient also has a history of coronary artery disease with previous stenting. She was on anticoagulation which she states was just discontinued through her primary care provider. She is also having some difficulty with elevated blood pressure at home. She is currently undergoing a breathing treatment at the bedside. She is being seen by pulmonology as well. She has not had any significant improvement in regards to her pain since yesterday. Today she states her low back pain is more significant than her lower extremity pain. She states her pain at her lumbar spine is better controlled while standing and can be exacerbated with lying down or sitting. In regards to her lumbar spine and right hip, she states she has significant pain and radiates across her lumbar spine, towards the right buttock, over the lateral hip, and down her right posterior lateral thigh. She's had some difficulty controlling her pain. She denies any specific recent injuries. She denies any left lower extremity radiculopathy. Today she does state she has better range of motion of her bilateral lower extremities. She is able to perform active range of motion of her lower extremities independently at the bedside without significant difficulty. She follows with her primary care provider, Dr. Gregorio Garber, in the outpatient setting. She states she has had some injections for pain at his office. She is currently on hydrocodone as prescribed for pain control but states she does not take this medication frequently. She has not followed with pain management in the outpatient setting but would be willing to do so. She is unable to do this previous he due to anticoagulation use which has recently been discontinued. After her previous evaluation, she was planning for evaluation in the outpatient setting in regards to her lumbar spine but states due to multiple other appointments from a medical standpoint she had not scheduled follow-up appointment. She is admitted to medicine. Her other medical diagnoses include coronary artery disease, diabetes mellitus, COPD, history of DVT, hyperlipidemia, and hypertension. Medicine has ordered MRI imaging of the right hip and lumbar spine. The MRI imaging is scheduled to be performed today, 05/07/2023. Ultrasound performed was negative for DVT in the lower extremities. X-ray imaging of the right hip and lumbar spine was performed yesterday. This has been reviewed by myself. Patient states following her imaging she would be willing to work to further conservative treatment options with pain management during her admission to the hospital. Ultrasound performed and lower extremities yesterday was negative for DVT. Prescription was written, signed, provided to case management for an LSO brace. We are hopeful this is delivered and fitted appropriately today. Physical exam: Patient is awake, alert, and oriented 3 Vital signs stable Adequate chest excursion with deep inspiration and expiration; currently undergoing a breathing treatment Examination of lumbar spine reveals skin is intact with no abrasions, lacerations, or bruises; no erythema, purulence or signs of infection No significant pain with palpation over midline of the lumbosacral spine or over the lumbar paraspinal muscles Dorsiflexion, plantarflexion, and extensor hallucis longus positive sustained bilaterally Patient does have some generalized weakness when trying to perform hip flexion bilaterally with better range of motion of her lower extremities today Patient is able to perform knee flexion bilaterally without significant difficulty today Straight leg test negative bilateral lower extremities No signs or symptoms of DVT; no calf pain No pain with internal and external rotation of the hips bilaterally Neurovascularly intact Pertinent studies: X-rays of the lumbar spine taken on 05/05/2023: Degenerative scoliosis; L2-3 significant degenerative disc disease and lateral listhesis with osteophytic spurring; L4-5 worsening degenerative disc disease as compared to previous study taken from 10/19/2022; L4 inferior endplate compression deformity of indeterminate age with some apparent sclerosis; evidence of arterial stenting X-ray of the right hip taken on 05/05/2023: Mild to moderate osteoarthritis of the right hip joint spacing; no evidence of fracture dislocation at the right hip CT of the lumbar spine taken on 10/19/2022: Overall alignment is adequately maintained; L2-3 significant degenerative disc disease with anterior osteophytic spurring and slight lateral listhesis; no vertebral body compression fracture; slight degenerative scoliosis; there may be some spinal canal narrowing at L2-3 but no obvious herniated nucleus pulposus or stenosis Assessment: Acute on chronic low back pain L4 inferior endplate compression fracture deformity of indeterminate age L4-5 worsening degenerative disc disease L2-3 degenerative disc disease and anterior osteophytic spurring L2-3 lateral listhesis Right lower extremity radiculopathy Some weakness with hip flexion bilaterally and knee flexion on the right Degenerative scoliosis Mild to moderate right hip osteoarthritis Shortness of breath Diabetes mellitus Coronary artery disease History of DVT Hyperlipidemia History of hypertension Plan: 1. Patient does have a history of chronic low back pain. She's been treated and evaluated in the outpatient setting by her primary care provider. She has had some injections for her pain at her primary care provider's office. She has been intermittently taking hydrocodone as prescribed as needed for pain control. She does admit to increased difficulty prolonged ambulation or standing as it does exacerbate her low back pain. She has pain in her lumbosacral spine degrees with right buttock, over the right lateral hip, down the right posterior lateral thigh. She feels her symptoms have been worsening. Previous lumbar CT imaging was once again reviewed. Degenerative changes were most significant at L2-3 not L1-2. The CT does show some degenerative changes most significant at L2-3 with degenerative disc disease, lateral listhesis, and osteophytic spurring. There may be evidence of canal narrowing at this level. We did discuss she could benefit from lumbar MRI imaging as well as consultation with pain management and possibly working through formal physical therapy depending on her MRI results. Currently, MRI imaging has been ordered of her right hip and lumbar spine by her primary care provider. MRI imaging is scheduled to be performed today, 05/07/2023. We did discuss the plan to review MRI imaging once completed. She was recently on anticoagulation which has been discontinued. We did discuss we can consider consultation with pain management during her admission to the hospital depending on her MRI results. She feels this would be a good plan of care and she would be willing to work through further treatment with pain management. We reviewed and discussed her x-ray imaging of the lumbar spine and right hip. She does have [id number] osteoarthritic set her right hip. X-ray imaging also showed evidence of L4 inferior endplate compression fracture of indeterminate age with some apparent sclerosis. Given her ongoing pain and x- ray imaging results, we'll plan for bracing. A prescription has been written and provided to case management for an LSO brace. We are hopeful this brace is delivered and fitted appropriately today. Once this brace is delivered and fitted appropriately, patient should wear this brace while sitting upright at greater than 45, during increase activities, during ambulation. Brace does not have to or while lying in bed or while bathing. We did discuss patient should avoid excessive bending, twisting, lifting activities. No lifting greater than 10 pounds. We did discuss the fracture is of indeterminate age. We did discuss we will know more of the chronicity of this fracture following her lumbar MRI. The L4 inferior endplate compression fracture appears acute as compared to previous CT imaging from 10/19/2022, but there does appear to be some sclerosis of the endplate and this could be chronic. She has not had a recent injury. Given her ongoing and worsening pain we will plan for bracing. Patient will also plan to be discussed in detail with Dr. Marco Antonio Sosa as her symptoms appear to be stemming more from her lumbar spine rather than her right hip. 2. Patient will continue to be seen and examined by medicine and pulmonology
[2023-05-07] MEDS: DAPAGLIFLOZIN PROPANEDIOL 5 MG TABLET PO SCH (08:58)
[2023-05-07] MEDS: SERTRALINE 100 MG TAB PO SCH (08:58)
[2023-05-07] MEDS: HYDROcodone/APAP 7.5-325MG 1 EACH TAB PO SCH ×2 (08:59→19:51)
[2023-05-07] MEDS: PANTOPRAZOLE 40 MG/10 ML VIAL IV SCH (08:59)
[2023-05-07] MEDS: methylPREDNISolone SOD SUCCI 40 MG/ML 1 ML VIAL IV SCH ×2 (08:59→19:52)
[2023-05-07] MEDS: amLODIPine 5 MG TAB PO SCH (09:01)
[2023-05-07] MEDS: POTASSIUM CHLORIDE ER 20 MEQ TAB.ER PO SCH (09:01)
[2023-05-07] MEDS: ASPIRIN 81 MG PO SCH (09:01)
[2023-05-07] MEDS: clonazePAM 1 MG TAB PO SCH ×3 (09:01→19:52)
[2023-05-07] MEDS: MULTIVITAMINS, THERA 1 EACH TAB PO SCH (09:01)
[2023-05-07] MEDS: atenoloL 50 MG TAB PO SCH (09:01)
[2023-05-07] MEDS: GABAPENTIN 300 MG CAP PO SCH ×3 (09:01→19:51)
[2023-05-07 09:04] LABS: ALT 12 U/L (8-44); AST 12 U/L (13-35); Albumin 4.1 d/dL (3.8-4.9); Albumin/Globulin Ratio 1.52 Ratio (1.60-3.17); Alkaline Phosphatase 91 U/L (41-126); BUN/Creat Ratio 34.81 Ratio (12.00-20.00); Blood Urea Nitrogen 55.7 mg/dL (9.0-27.0); Calcium 9.2 mg/dL (8.7-10.3); Carbon Dioxide 23.5 mmol/L (21.6-31.8); Chloride 108 mmol/L (96-109); Globulin 2.7 d/dL (1.6-3.3); Glucose 188 mg/dL (70-110); Potassium 4.5 mmol/L (3.5-5.5); Sodium 144 mmol/L (135-145); Total Bilirubin <0.2 mg/dL (0.3-1.2); Total Protein 6.8 d/dL (6.2-8.2)
[2023-05-07 09:16] LABS: Basophils # (A) 0.03 X 10*3/uL (0.00-0.10); Basophils % (A) 0.2 %; Eosinophils # (A) 0 X 10*3/uL (0.04-0.35); Eosinophils % (A) 0 %; HCT 40.4 % (37.2-46.3); HGB 12.9 d/dL (12.0-15.0); Lymphocytes # (A) 0.36 X 10*3/uL (0.90-5.00); Lymphocytes % (A) 2.4 %; MCH 28.2 pg (27.0-32.0); MCHC 31.9 d/dL (32.0-37.0); MCV 88.2 FL (80.0-97.0); Mean Platelet Volume 9.3 FL (9.5-12.2); Monocytes # (A) 0.67 X 10*3/uL (0.20-1.00); Monocytes % (A) 4.6 %; NRBC Per 100 WBC 0 X 10*3/uL (0.00-0.01); Neutrophils # (A) 13.41 X 10*3/uL (1.80-7.70); Neutrophils % (A) 91.2 %; Platelet Count 381 X 10*3/uL (140-440); RBC 4.58 X 10*6/uL (4.10-5.20); RDW 19.3 % (11.5-14.5); WBC 14.71 X 10*3/uL (4.50-10.00)
--- NOTE | 2023-05-07 11:17 | P.PN ---
Subjective Progress Note Date: 05/07/23 Principal diagnosis: Back pain acute on chronic Hypertension hypertensive cardiovascular disease with labile blood pressure at home Acute on chronic exacerbation of congestive heart failure Chronic diastolic heart failure Coronary artery disease with history of stent placement Peripheral vascular disease with history of lower extremity intervention Dyslipidemia Hypertension hypertensive perivascular disease Type 2 diabetes mellitus History of smoking and nicotine use 05/07/2023, patient seen eval examined, ongoing shortness of breath is present patient continued severe pain, orthopedic and spine surgery is seeing patient has received a back brace but however pain is still there, patient is being evaluated for epidural injections by spine surgery. CBC done today reviewed WBC count 14.7 hemoglobin and hematocrit 12/40 platelet count 3 81,000 sodium was 144 potassium 4.5 BUN/creatinine is a 55/1.6 LFTs within normal limit. Medications reviewed patient remains on Inchelium for pain control also on DuoNeb 4 times a day as well as IV steroids, chest x-ray consistent with congestive heart failure and small bilateral pleural effusion cardiovascular services following Lasix is on hold 05/06/2023, patient seen eval examined during rounds labs reviewed medications reviewed care plan discussed, respiratory status stable, on as needed oxygen, most of time she is on oxygen at home at nighttime. Currently her pain in the back and hip is stable, orthopedic service and spine surgery is following, patient has been on pain medicine slightly somnolent but readily arousable patient being continued on her home medicine also on IV steroids 60 mg every 6 we'll start tapering it down repeat labs tomorrow as well 05/05/2023, patient seen eval examined during rounds labs reviewed medications reviewed care plan discussed, patient is 59-year-old female with a past medical history significant for congestive heart failure, coronary artery disease with previous stenting, hypertension, diabetes, hyperlipidemia, peripheral vascular disease with previous lower extremity stenting, chronic back pain, and former nicotine dependence. Patient has progressive shortness of breath yesterday that has since resolved. Her main complaint at the time of examination is back pain and she is requesting to be seen by an orthopedic surgeon. She was given 1 dose of IV Lasix by the emergency room physician. Her creatinine increased from 1.10 to 1.90. Chest x-ray suggestive of interstitial edema bilateral small pleural effusion, prior echocardiogram back in June 2022 ejection fraction is 55% with mild MR and TR with Performing 2017 stent in PDA Objective - Vital Signs Vital signs: Vital Signs Temp 97.7 F 05/07/23 07:15 Pulse 72 05/07/23 08:37 Resp 16 05/07/23 08:00 BP 187/75 05/07/23 07:15 Pulse Ox 95 05/07/23 07:15 FiO2 Intake & Output 05/06/23 05/07/23 05/07/23 18:59 06:59 18:59 Intake Total 222 296 Balance 222 296 Weight 74.2 kg Intake: Oral 222 296 Other: Voiding Method Toilet Toilet Toilet # Voids 1 2 - EENT Eyes: Present: EOMI, PERRLA ENT: Present: normal oropharynx Ears: bilateral: normal - Neck Neck: Present: normal ROM Carotids: bilateral: upstroke normal Thyroid: bilateral: normal size - Respiratory Respiratory: bilateral: rales - Cardiovascular Rhythm: regularly irregular Heart sounds: normal: S1, S2 - Gastrointestinal General gastrointestinal: Present: decreased bowel sounds, soft - Integumentary Integumentary Comment(s): Bilateral trace edema - Neurologic Neurologic: Present: CNII-XII intact - Musculoskeletal Musculoskeletal: Present: gait normal, generalized weakness, strength equal bilaterally - Psychiatric Psychiatric: Present: A&O x's 3, appropriate affect, intact judgment & insight - Labs CBC & Chem 7: 05/07/23 05:27 05/07/23 05:27 Labs: Abnormal Lab Results - Last 24 Hours (Table) 05/06/23 05/06/23 05/06/23 Range/Units 11:50 17:20 20:09 WBC (4.50-10.00) X 10*3/uL MCHC (32.0-37.0) d/dL RDW (11.5-14.5) % MPV (9.5-12.2) FL Neutrophils # (1.80-7.70) X 10*3/uL Lymphocytes # (0.90-5.00) X 10*3/uL Eosinophils # (0.04-0.35) X 10*3/uL Anion Gap (4.00-12.00) mmol/L BUN (9.0-27.0) mg/dL Creatinine (0.6-1.5) mg/dL Est GFR (CKD-EPI) (>=60) BUN/Creatinine Ratio (12.00-20.00) Ratio Glucose (70-110) mg/dL POC Glucose (mg/dL) 203 H 180 H 166 H (70-110) mg/dL Total Bilirubin (0.3-1.2) mg/dL AST (13-35) U/L Albumin/Globulin Ratio (1.60-3.17) Ratio 05/07/23 05/07/23 05/07/23 Range/Units 05:27 05:27 06:00 WBC 14.71 H (4.50-10.00) X 10*3/uL MCHC 31.9 L (32.0-37.0) d/dL RDW 19.3 H (11.5-14.5) % MPV 9.3 L (9.5-12.2) FL Neutrophils # 13.41 H (1.80-7.70) X 10*3/uL Lymphocytes # 0.36 L (0.90-5.00) X 10*3/uL Eosinophils # 0 L (0.04-0.35) X 10*3/uL Anion Gap 12.50 H (4.00-12.00) mmol/L BUN 55.7 H (9.0-27.0) mg/dL Creatinine 1.6 H (0.6-1.5) mg/dL Est GFR (CKD-EPI) 35 L (>=60) BUN/Creatinine Ratio 34.81 H (12.00-20.00) Ratio Glucose 188 H (70-110) mg/dL POC Glucose (mg/dL) 215 H (70-110) mg/dL Total Bilirubin <0.2 L (0.3-1.2) mg/dL AST 12 L (13-35) U/L Albumin/Globulin Ratio 1.52 L (1.60-3.17) Ratio Assessment and Plan Assessment: Bilateral pleural effusion likely related to congestive heart failure Acute on chronic diastolic heart failure Back pain acute on chronic, patient is being evaluated for epidural by spine surgery Hypertension hypertensive cardiovascular disease with labile blood pressure at home Acute on chronic exacerbation of congestive heart failure Coronary artery disease with history of stent placement Peripheral vascular disease with history of lower extremity intervention Dyslipidemia Hypertension hypertensive perivascular disease Type 2 diabetes mellitus History of smoking and nicotine use Plan: Continue pain medications with Inchelium, with breakthrough pain with morphine, agree with evaluation with epidural Continue bronchodilator with DuoNeb 4 times a day and when necessary as well as steroids up or down to IV every 12 40 mg Will obtain a chest x-ray as patient may need some diuresis Blood pressure control with Norvasc atenolol hydralazine Continue gentle diuresis Monitor renal functions closely Continue antihypertensive agent and anti-lipid agent as noted above along with statins Continue oral hypoglycemic agent as well as shorten Insulin Cardiovascular services following follow up on echocardiogram Orthopedic service including spine surgery have evaluated the patient awaiting further recommendation thought processes Time with Patient: Greater than 30
[2023-05-07 12:08] LABS: Glucose,Whole Blood 217 mg/dL (70-110)
[2023-05-07] MEDS: MORPHINE SULFATE 4 MG/ML SYRINGE IV PRN (13:43)
--- NOTE | 2023-05-07 14:31 | MR ---
EXAMINATION TYPE: MR lumbar spine wo con DATE OF EXAM: 05/07/2023 1:20 PM CLINICAL INDICATION:Female, 67 years old with history of oa/pain; COMPARISON: CT 10/23/2022 TECHNIQUE: Multi planar, multi sequence imaging was performed utilizing: T1-weighted, T2-weighted, a nd turbo inversion recovery imaging of the lumbar spine. IV Contrast: (None if empty) FINDINGS: Alignment: The lumbar vertebral bodies have preserved heights and alignment. Cord: The conus medullaris and the distal spinal cord appear unremarkable with regards to their signa l intensity and morphology. Bones/Discs: Modic endplate changes also present at the adjoining endplates of L2-L3. Scattered degen eration changes with osteophyte formation facet arthropathy. Inversion cover signal present within th e internal L4 vertebral body. There is curvilinear low T1/T2 signal line in the superior endplate of L5 with bony edema present. Less than 25% height loss and no evidence for retropulsion. The disc space at L4-L5 is somewhat expanded with poorly defined endplate changes. T12-L1: No evidence of significant spinal canal stenosis or neural foraminal stenosis. L1-L2: No evidence of significant spinal canal stenosis or neural foraminal stenosis. L2-L3: Disc bulge and facet joint arthropathy result in mild spinal canal and mild bilateral neural f oraminal stenosis. L3-L4: No evidence of significant spinal canal stenosis or neural foraminal stenosis. L4-L5: Poorly defined disc space thickening with moderate right and mild left neural foraminal stenos is. The spinal canal is patent. There is poor delineation of the inferior endplate of L4 and superior endplate of L5. L5-S1: The disc is rounded posterior morphology without significant spinal canal chai nosis. Facet joint arthropathy with mild bilateral neural foraminal stenosis. No significant spinal canal or neural foraminal stenosis in the remainder of the visualized levels. Other findings: None. IMPRESSION: 1. New, Abnormal appearance of the adjoining endplates of L4-L5, with extension of the disc space an d irregular margins of the endplates suggestive of erosion. Correlate clinically for signs and sympto ms of an osteomyelitis discitis and consider postcontrast imaging of the lumbar spine. 2. New from 10/23/2022 is superior endplate deformity of the L5 vertebra suspicious for compression f racture with less than 25% height loss.
--- NOTE | 2023-05-07 15:05 | MR ---
EXAMINATION TYPE: MR hip RT wo con DATE OF EXAM: 05/07/2023 1:20 PM CLINICAL INDICATION:Female, 67 years old with history of oa/pain; COMPARISON: 10/23/2022. TECHNIQUE: Multiplanar multi-sequential magnetic resonance imaging of the right hip without contrast. IV Contrast: None FINDINGS: Joint spaces and alignment: Normal alignment with mild joint space narrowing. Joint/bursal fluid: Normal Articular cartilage: Mild cartilage thinning bilaterally. Acetabular labrum: There is no evidence for displaced labral tear within limits of noncontrast techni que. Suspected degeneration of the labrum noted. Muscles/Tendons: Intact, The tendons of the gluteal, hamstring, iliopsoas, and adductors are normal i n within normal limits without evidence for edema and are intact. Abductor tendon insertions: Intact Intrapelvic structures: Normal Neurovascular structures: Normal Marrow: New bilateral superior femoral head low T1 signal curvilinear lucencies. There is mild deform ity to the right femoral head best appreciated on series 301 image 10. There is high inversion recove ry signal along the area of fracture bilaterally. Height PE signal lesion in the left greater trochan ter measuring up to 14 mm. Mild osteophyte formation of the superior acetabulum. There is no evidence of fracture or acute process. The sacroiliac joints and pubic symphysis are noted to be unremarkable . Soft tissues: Normal Other: The ovaries, uterus, and urinary bladder are unremarkable. No lymphadenopathy is visualized. Fibroid uterus noted. Right lateral bladder diverticulum. IMPRESSION: 1. Limited exam due to patient motion. 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 Correlate for steroid use and other etiologies for avascular necrosis. 2. No displaced labral tear. 3. High T2 lesion in the left greater trochanter could represent benign hemangioma. No obvious CT co rrelate on prior.
[2023-05-07 17:04] LABS: Glucose,Whole Blood 111 mg/dL (70-110)
[2023-05-07] MEDS: ATORVASTATIN 80 MG TAB PO SCH (19:51)
[2023-05-07 22:11] LABS: Glucose,Whole Blood 205 mg/dL (70-110)
[2023-05-08 06:42] LABS: Glucose,Whole Blood 132 mg/dL (70-110)
[2023-05-08] MEDS: INSULIN ASPART (NovoLOG) 100 UNIT/ML VIAL SQ SCH ×4 (06:44→22:09)
[2023-05-08] MEDS: IPRATROPIUM-ALBUTEROL 3 ML NEB INHALATION PRN ×2 (07:55→11:15)
[2023-05-08] MEDS: PANTOPRAZOLE 40 MG/10 ML VIAL IV SCH (08:16)
[2023-05-08] MEDS: HYDROcodone/APAP 7.5-325MG 1 EACH TAB PO SCH ×2 (08:16→20:03)
[2023-05-08] MEDS: methylPREDNISolone SOD SUCCI 40 MG/ML 1 ML VIAL IV SCH ×2 (08:16→20:03)
[2023-05-08] MEDS: clonazePAM 1 MG TAB PO SCH ×3 (08:17→20:03)
[2023-05-08] MEDS: ASPIRIN 81 MG PO SCH (08:17)
[2023-05-08] MEDS: atenoloL 50 MG TAB PO SCH (08:17)
[2023-05-08] MEDS: GABAPENTIN 300 MG CAP PO SCH ×3 (08:17→20:03)
[2023-05-08] MEDS: amLODIPine 5 MG TAB PO SCH (08:17)
[2023-05-08] MEDS: DAPAGLIFLOZIN PROPANEDIOL 5 MG TABLET PO SCH (08:17)
[2023-05-08] MEDS: POTASSIUM CHLORIDE ER 20 MEQ TAB.ER PO SCH (08:17)
[2023-05-08] MEDS: SERTRALINE 100 MG TAB PO SCH (08:17)
[2023-05-08] MEDS: MULTIVITAMINS, THERA 1 EACH TAB PO SCH (08:17)
--- NOTE | 2023-05-08 09:12 | P.PN ---
Progress Note - Text Progress Note Date: 05/08/23 Orthopedics: History of present illness: Patient is a very pleasant 67-year-old female who is seen and examined at bedside for further evaluation of her lumbar spine and right hip. She was previously seen by us in October 2022 in regards to her lumbar spine. Sunday she presented to the emergency department due to shortness of breath and palpitations. She is currently undergoing further evaluation with medicine and cardiology. Cardiology followed with the patient yesterday and has signed off. Patient also has a history of coronary artery disease with previous stenting. She was on anticoagulation which she states was just discontinued through her primary care provider. She was also having some difficulty with elevated blood pressure at home. Radiology is present at the bedside to perform x-ray imaging of the chest. She is being seen by pulmonology as well. She has not had any significant improvement in regards to her pain since yesterday and her symptoms continued to be persistent. Today she states her low back pain is more significant than her lower extremity pain. She states her pain at her lumbar spine is better controlled while standing and can be exacerbated with lying down or sitting. In regards to her lumbar spine and right hip, she states she has significant pain and radiates across her lumbar spine, towards the right buttock, over the lateral hip, and down her right posterior lateral thigh. She's had some difficulty controlling her pain. She denies any specific recent injuries. She denies any left lower extremity radiculopathy. She is able to continue being able to perform active range of motion of her lower extremities independently at the bedside without significant difficulty. She follows with her primary care provider, Dr. Gregorio Garber, in the outpatient setting. She states she has had some injections for pain at his office. She is currently on hydrocodone as prescribed for pain control but states she does not take this medication frequently. She has not followed with pain management in the outpatient setting but would be willing to do so. She is unable to do this previous he due to anticoagulation use which has recently been discontinued. After her previous evaluation, she was planning for evaluation in the outpatient setting in regards to her lumbar spine but states due to multiple other appointments from a medical standpoint she had not scheduled follow-up appointment. She is admitted to medicine. Her other medical diagnoses include coronary artery disease, diabetes mellitus, COPD, history of DVT, hyperlipidemia, and hypertension. MRI imaging of her right hip and lumbar spine was performed yesterday. This has been reviewed. Based on the lumbar MRI results, we are currently planning for MRI imaging with contrast of the lumbar spine. Ultrasound performed was negative for DVT in the lower extremities. Prescription was written, signed, provided to case management for an LSO brace. Review of lumbar MRI him initial compression fractures at L4 and L5. This has been delivered and fitted properly. We did discuss patient should wear this brace during increased activities, ambulation, while sitting upright at greater than 45, and while working with physical therapy. Brace is not have to while lying in bed or bathing. Given her acute fractures, we will not plan for consultation with pain management. Physical exam: Patient is awake, alert, and oriented 3 Vital signs stable Adequate chest excursion with deep inspiration and expiration; currently undergoing a breathing treatment Examination of lumbar spine reveals skin is intact with no abrasions, lacerations, or bruises; no erythema, purulence or signs of infection No significant pain with palpation over midline of the lumbosacral spine or over the lumbar paraspinal muscles Dorsiflexion, plantarflexion, and extensor hallucis longus positive sustained bilaterally Patient does have some generalized weakness when trying to perform hip flexion bilaterally with better range of motion of her lower extremities today Patient is able to perform knee flexion bilaterally without significant difficulty today Straight leg test negative bilateral lower extremities No signs or symptoms of DVT; no calf pain No pain with internal and external rotation of the hips bilaterally Neurovascularly intact Pertinent studies: MRI of the lumbar spine taken on 05/07/2023: Evidence of bone signal change within the inferior L4 vertebral body and superior endplate of the L5 vertebral body with bony edema present which appears to reflect acute fracture; abnormal appearance of the adjoining end plates of L4 and L5 with extension of disc space and irregular margin of the endplate suggestive of erosion which could consider postcontrast imaging reevaluation of osteomyelitis discitis; L2-3 Modic endplate change, degenerative disc disease, disc bulge, facet joint arthropathy with mild spinal canal stenosis and mild bilateral neural foraminal stenosis; L4-5 facet joint arthropathy with mild bilateral foraminal stenosis MRI of the right hip taken on 05/07/2023: 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 right greater than left with possible early collapse on the right; non-displaced labral tear with right hip X-rays of the lumbar spine taken on 05/05/2023: Degenerative scoliosis; L2-3 significant degenerative disc disease and lateral listhesis with osteophytic spurring; L4-5 worsening degenerative disc disease as compared to previous study taken from 10/19/2022; L4 inferior endplate compression deformity of indet erminate age with some apparent sclerosis; evidence of arterial stenting X-ray of the right hip taken on 05/05/2023: Mild to moderate osteoarthritis of the right hip joint spacing; no evidence of fracture dislocation at the right hip CT of the lumbar spine taken on 10/19/2022: Overall alignment is adequately maintained; L2-3 significant degenerative disc disease with anterior osteophytic spurring and slight lateral listhesis; no vertebral body compression fracture; slight degenerative scoliosis; there may be some spinal canal narrowing at L2-3 but no obvious herniated nucleus pulposus or stenosis Assessment: Acute L4 inferior endplate and L5 superior endplate compression fracture deformities Abnormal appearance of the adjoining end plates of L4 and L5 with extension of disc space and irregular margin of the endplate suggestive of erosion which could consider postcontrast imaging reevaluation of osteomyelitis discitis; 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 right greater than left with possible early collapse on the right Non-displaced labral tear at the right hip Acute on chronic low back pain L4 inferior endplate compression fracture deformity of indeterminate age L4-5 worsening degenerative disc disease L2-3 degenerative disc disease and anterior osteophytic spurring L2-3 lateral listhesis Lumbar facet arthropathy Lumbar mild foraminal stenosis Right lower extremity radiculopathy Some weakness with hip flexion bilaterally and knee flexion on the right Degenerative scoliosis Mild to moderate right hip osteoarthritis Shortness of breath Diabetes mellitus Coronary artery disease History of DVT Hyperlipidemia History of hypertension Plan: 1. Patient does have a history of chronic low back pain. She's been treated and evaluated in the outpatient setting by her primary care provider. She has had some injections for her pain at her primary care provider's office. She has been intermittently taking hydrocodone as prescribed as needed for pain control. She does admit to increased difficulty prolonged ambulation or standing as it does exacerbate her low back pain. She has pain in her lumbosacral spine degrees with right buttock, over the right lateral hip, down the right posterior lateral thigh. She feels her symptoms have been worsening. Previous lumbar CT imaging was once again reviewed. Degenerative changes were most significant at L2-3 not L1-2. The CT does show some degenerative changes most significant at L2-3 with degenerative disc disease, lateral listhesis, and osteophytic spurring. There may be evidence of canal narrowing at this level. MRI imaging of the lumbar spine and right hip was performed yesterday. Lumbar MRI imaging has been reviewed by myself and Dr. Marco Antonio Sosa. Upon our review, it appears she has evidence of acute L4 inferior endplate and L5 superior endplate compression fracture deformities. Lumbar MRI also shows abnormal appearance of the adjoining end plates of L4 and L5 with extension of disc space and irregular margin of the endplate suggestive of erosion which could consider postcontrast imaging reevaluation of osteomyelitis discitis. Given these findings, we have ordered lumbar MRI imaging with contrast. Once this MRI imaging with contrast is performed, we will plan to review this imaging and discuss a plan of care. Given her fractures at L4 and L5, we'll also currently plan for conservative treatment with bracing. Previously,a prescription has been written and provided to case management for an LSO brace. This brace was delivered and fitted appropriately yesterday. We discussed at the bedside that the patient should wear this brace while sitting upright at greater than 45, during increase activities, during ambulation. Brace does not have to or while lying in bed or while bathing. We did discuss patient should avoid excessive bending, twisting, lifting activities. No lifting greater than 10 pounds. We did discuss the fracture is of indeterminate age. Her symptoms do appear to be most significant in regards to her lumbar spine rather than her right hip. We will continue to follow her closely. We will follow up for further evaluation and discuss further treatment options fine her postcontrast lumbar MRI imaging. 2. In regards to her right hip, x-rays show mild/moderate osteoarthritic of her right hip. MRI imaging of the right hip shows evidence of suspected bilateral avascular necrosis right greater than left with possible early collapse on the right and non-displaced labral tear at the right hip. She does not need acute treatment in this regard. We will currently planned to have her follow with Dr. Jordy Ye outpatient setting for further treatment and evaluation in this regard. 3. Patient will continue to be seen and examined by medicine and pulmonology
--- NOTE | 2023-05-08 09:45 | XR ---
EXAMINATION TYPE: XR chest 1V portable DATE OF EXAM: 05/08/2023 COMPARISON: 05/03/2023 HISTORY: COPD TECHNIQUE: Single frontal view of the chest is obtained. FINDINGS: There is no focal air space opacity, pleural effusion, or pneumothorax seen. The cardiac silhouette size is within normal limits. The osseous structures are intact. There is coarsened inte rstitium. There is shoulder arthropathy. Mild emphysematous changes. Atherosclerotic change aorta. IMPRESSION: Coarsened interstitium correlating for interstitial chronic lung disease. Superimposed p neumonitis in the differential diagnosis.
[2023-05-08 12:20] LABS: Glucose,Whole Blood 219 mg/dL (70-110)
[2023-05-08] MEDS: SODIUM CHLORIDE 0.9% 1,000 ML IV SCH ×2 (12:49→20:04)
--- NOTE | 2023-05-08 13:56 | MR ---
EXAMINATION TYPE: MR lumbar spine w con DATE OF EXAM: 05/08/2023 COMPARISON: 05/07/2023 HISTORY: Evaluate for osteomyelitis. CONTRAST: 0 mL intravenous Gadavist. TECHNIQUE: Multiplanar, multisequence images of the lumbar spine were acquired. FINDINGS: L5-S1: No significant disc bulge or disc herniation. No spinal canal stenosis. No foraminal stenosi s. . L4-L5: Mild disc bulge is moderate anterior thecal sac compression. No AP spinal canal stenosis is pr esent. Facet hypertrophy is present with posterior lateral thecal sac compression. Some lateral canal narrowing is present. Moderate bilateral foraminal narrowing is present. Endplate changes are present L4-5 with increased signal on postgad T1-weighted sequences. Enhancement within the disc space however is not identified. Findings are felt to reflect osteomyelitis inferior endplate L4. Some early discitis and superior L5 endplate change is present L3-L4: No significant disc bulge or disc herniation. No spinal canal stenosis. No foraminal stenosi s. L2-L3: No significant disc bulge or disc herniation. No spinal canal stenosis. No foraminal stenosi s. L1-L2: No significant disc bulge or disc herniation. No spinal canal stenosis. No foraminal stenosi s. T12-L1: No significant disc bulge or disc herniation. No spinal canal stenosis. No foraminal stenos is. Some mild enhancement along the anterior-inferior L2 vertebral body may be present best visualized on the sagittal plane. No additional areas of abnormal enhancement are evident IMPRESSION: 1. Findings at the L4-5 disc level are felt to reflect osteomyelitis of the inferior endplate L4. [place] early discitis and superior L5 endplate change is present.
--- NOTE | 2023-05-08 17:05 | P.PN ---
Subjective Progress Note Date: 05/08/23 Principal diagnosis: Back pain acute on chronic Hypertension hypertensive cardiovascular disease with labile blood pressure at home Acute on chronic exacerbation of congestive heart failure Chronic diastolic heart failure Coronary artery disease with history of stent placement Peripheral vascular disease with history of lower extremity intervention Dyslipidemia Hypertension hypertensive perivascular disease Type 2 diabetes mellitus History of smoking and nicotine use 05/08/2023, patient seen eval examined during rounds labs reviewed medications in the care plan discussed patient has a MRI of lumbar spine and right hip, patient has evidence of L4 and L5 compression fracture deformities with a possible element of [place] colitis/discitis lumbar MRI has been ordered orthope dic service and spine surgery has been following 05/07/2023, patient seen evanshul examined, ongoing shortness of breath is present patient continued severe pain, orthopedic and spine surgery is seeing patient has received a back brace but however pain is still there, patient is being evaluated for epidural injections by spine surgery. CBC done today reviewed WBC count 14.7 hemoglobin and hematocrit 12/40 platelet count 3 81,000 sodium was 144 potassium 4.5 BUN/creatinine is a 55/1.6 LFTs within normal limit. Medications reviewed patient remains on [place] for pain control also on DuoNeb 4 times a day as well as IV steroids, chest x-ray consistent with congestive heart failure and small bilateral pleural effusion cardiovascular services following Lasix is on hold 05/06/2023, patient seen sergio examined during rounds labs reviewed medications reviewed care plan discussed, respiratory status stable, on as needed oxygen, most of time she is on oxygen at home at nighttime. Currently her pain in the back and hip is stable, orthopedic service and spine surgery is following, patient has been on pain medicine slightly somnolent but readily arousable patient being continued on her home medicine also on IV steroids 60 mg every 6 we'll start tapering it down repeat labs tomorrow as well 05/05/2023, patient seen sergio examined during rounds labs reviewed medications reviewed care plan discussed, patient is 59-year-old female with a past medical history significant for congestive heart failure, coronary artery disease with previous stenting, hypertension, diabetes, hyperlipidemia, peripheral vascular disease with previous lower extremity stenting, chronic back pain, and former nicotine dependence. Patient has progressive shortness of breath yesterday that has since resolved. Her main complaint at the time of examination is back pain and she is requesting to be seen by an orthopedic surgeon. She was given 1 dose of IV Lasix by the emergency room physician. Her creatinine increased from 1.10 to 1.90. Chest x-ray suggestive of interstitial edema bilateral small pleural effusion, prior echocardiogram back in June 2022 ejection fraction is 55% with mild MR and TR with Performing 2017 stent in PDA Objective - Vital Signs Vital signs: Vital Signs Temp 98.1 F 05/08/23 14:00 Pulse 65 05/08/23 14:00 Resp 12 05/08/23 14:00 BP 154/78 05/08/23 16:27 Pulse Ox 95 05/08/23 14:00 FiO2 Intake & Output 05/07/23 05/08/23 05/08/23 18:59 06:59 18:59 Intake Total 296 776 Balance 296 776 Weight 72.8 kg Intake: Oral 296 776 Other: Voiding Method Toilet Toilet Toilet # Voids 2 2 - Constitutional General appearance: Present: average body habitus - EENT Eyes: Present: EOMI, PERRLA Ears: bilateral: normal - Neck Neck: Present: normal ROM Carotids: bilateral: upstroke normal Thyroid: bilateral: normal size - Respiratory Respiratory: bilateral: CTA - Cardiovascular Rhythm: regular Heart sounds: normal: S1, S2 - Gastrointestinal General gastrointestinal: Present: normal bowel sounds, soft - Integumentary Integumentary: Present: normal turgor - Neurologic Neurologic: Present: CNII-XII intact - Musculoskeletal Musculoskeletal: Present: gait normal, generalized weakness, strength equal bilaterally - Psychiatric Psychiatric: Present: A&O x's 3, appropriate affect, intact judgment & insight - Labs CBC & Chem 7: 05/07/23 05:27 05/07/23 05:27 Labs: Abnormal Lab Results - Last 24 Hours (Table) 05/07/23 05/07/23 05/08/23 Range/Units 17:02 22:10 06:41 POC Glucose (mg/dL) 111 H 205 H 132 H (70-110) mg/dL 05/08/23 Range/Units 12:18 POC Glucose (mg/dL) 219 H (70-110) mg/dL Assessment and Plan Assessment: Bilateral pleural effusion likely related to congestive heart failure Acute on chronic diastolic heart failure Back pain acute on chronic, patient is being evaluated for epidural by spine surgery Hypertension hypertensive cardiovascular disease with labile blood pressure at home Acute on chronic exacerbation of congestive heart failure Coronary artery disease with history of stent placement Peripheral vascular disease with history of lower extremity intervention Dyslipidemia Hypertension hypertensive perivascular disease Type 2 diabetes mellitus History of smoking and nicotine use Plan: Continue pain medications with [place], with breakthrough pain with morphine, agree with evaluation with epidural Continue bronchodilator with DuoNeb 4 times a day and when necessary as well as steroids up or down to IV every 12 40 mg Will obtain a chest x-ray as patient may need some diuresis Blood pressure control with Norvasc atenolol hydralazine Continue gentle diuresis Monitor renal functions closely Continue antihypertensive agent and anti-lipid agent as noted above along with statins Continue oral hypoglycemic agent as well as shorten Insulin Cardiovascular services following follow up on echocardiogram Orthopedic service including spine surgery have evaluated the patient awaiting further recommendation thought processes
[2023-05-08 17:18] LABS: Glucose,Whole Blood 113 mg/dL (70-110)
[2023-05-08 19:08] LABS: Blood Urea Nitrogen 40.2 mg/dL (9.0-27.0); Calcium 9.7 mg/dL (8.7-10.3); Chloride 104 mmol/L (96-109); Glucose 207 mg/dL (70-110); Potassium 4.7 mmol/L (3.5-5.5); Sodium 138 mmol/L (135-145)
[2023-05-08] MEDS: ATORVASTATIN 80 MG TAB PO SCH (20:03)
[2023-05-08 20:44] LABS: Glucose,Whole Blood 146 mg/dL (70-110)
[2023-05-08] MEDS: MORPHINE SULFATE 4 MG/ML SYRINGE IV PRN (22:11)
[2023-05-09] MEDS: SODIUM CHLORIDE 0.9% 1,000 ML IV SCH ×2 (03:53→23:01)
[2023-05-09 05:49] LABS: Glucose,Whole Blood 153 mg/dL (70-110)
[2023-05-09] MEDS: MORPHINE SULFATE 4 MG/ML SYRINGE IV PRN (06:13)
[2023-05-09] MEDS: INSULIN ASPART (NovoLOG) 100 UNIT/ML VIAL SQ SCH ×4 (06:15→21:19)
--- NOTE | 2023-05-09 08:59 | P.CONS ---
History of Present Illness - Reason for Consult Consult date: 05/08/23 - History of Present Illness Patient is a 67-year-old female with a past medical history significant for coronary artery disease COPD DVT fibromyalgia hypertension hyperlipidemia osteoarthritis patient presenting to the hospital 4 days ago with concern for elevated blood pressure shortness of breath and palpitation patient do have a history of chronic back pain and did not mention that her back pain has been getting worse over the last few days patient denies having any history of any trauma or describe the pain to be mostly lower back area describing to be sharp intensity was almost 10 out of the 10 by the time she presented to the hospital with some radiation to the right leg has been complaining of some weakness in the leg but denies having any bowel or bladder problems with this and that the patient has been evaluated by orthopedics patient did have a lumbar spine MRI with the findings at L4-5 disc level felt to reflect osteomyelitis of the inferior endplate and early discitis and superior L5 endplate that has prompted this infectious disease consultation patient did not have any fever during this hospital stay she did have a normal white count initially however the white count is 14.71 today creatinine has been normal no cultures were done during this admission patient has been on steroid Past Medical History Past Medical History: Coronary Artery Disease (CAD), COPD, Deep Vein Thrombosis (DVT), Fibromyalgia, GERD/Reflux, Hyperlipidemia, Hypertension, Osteoarthritis (OA), Skin Disorder Additional Past Medical History / Comment(s): DIVERTICULITIS, HX KIDNEY STONE- still has it but it's never moved , Pneumonia, ROSACEA, DVT RLE 2007,gerson cataracts, BILAT ILIAC ARTERIES BLOCKED PER PT, pulmonary fibrosis History of Any Multi-Drug Resistant Organisms: None Reported Past Surgical History: Appendectomy, Bowel Resection, Heart Catheterization With Stent, Hernia Repair, Tubal Ligation Additional Past Surgical History / Comment(s): COLONOSCOPY, PARTIAL LT LOBECTOMY-(pt stated they thought i might of had tb but it was just scar tissue), D & C, 07-17-14 BOWEL RESECTION, HEART CATH W 2 STENTS AT [facility] 11-15-15 , 12-18-17 lap robotic assisted repair of inc hernia Past Anesthesia/Blood Transfusion Reactions: No Reported Reaction Date of Last Stent Placement:: 11-15-15 AT [facility] Past Psychological History: Anxiety, Panic Disorder Additional Psychological History / Comment(s): PT IS INDEPENDANT-drives,LIVES WITH SPOUSE and 2 pet cats. has 3 adult children and 10 grandchildren. 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 Smoking Status: Former smoker Past Alcohol Use History: None Reported Additional Past Alcohol Use History / Comment(s): smoked since age 13 1ppd; QUIT 2008 Past Drug Use History: None Reported - Past Family History Mother Family Medical History: Congestive Heart Failure (CHF) Father Family Medical History: Cancer Additional Family Medical History / Comment(s): TYPE OF CANCER NOT KNOWN Medications and Allergies Home Medications Medication Instructions Recorded Confirmed Type clonazePAM [Clonazepam] 1 mg PO TID 02/20/14 05/03/23 History HYDROcodone/APAP 7.5-325MG [Mulberry 1 tab PO BID 09/14/16 05/03/23 History 7.5-325] Rosuvastatin Calcium [Crestor] 40 mg PO HS 01/10/17 05/03/23 History Aspirin EC [Ecotrin Low Dose] 81 mg PO DAILY 01/27/20 05/03/23 History Sertraline [Zoloft] 100 mg PO DAILY 06/28/22 05/03/23 History amLODIPine [Norvasc] 5 mg PO DAILY 06/28/22 05/03/23 History Albuterol Sulfate [Albuterol 2 puff INHALATION RT-Q6H PRN 10/01/22 05/03/23 History Sulfate Hfa] Acetaminophen Tab [Tylenol] 650 mg PO Q6HR PRN tab 10/05/22 05/03/23 Rx Nitroglycerin Sl Tabs [Nitrostat] 0.4 mg SUBLINGUAL Q5M PRN tab 10/05/22 05/03/23 Rx Pantoprazole [Protonix] 40 mg PO AC-BID 90 Days #180 tab 10/05/22 05/03/23 Rx hydrALAZINE HCL [Apresoline] 100 mg PO BID PRN 10/18/22 05/03/23 History Furosemide [Lasix] 20 mg PO DAILY 90 Days #90 tab 10/24/22 05/03/23 Rx Budesonide/Glycopyr/Formoterol 2 puff INHALATION RT-BID 05/03/23 05/03/23 History [Breztri Aerosphere Inhaler] Dapagliflozin Propanediol [Farxiga] 5 mg PO DAILY 05/03/23 05/03/23 History Gabapentin [Neurontin] 300 mg PO TID 05/03/23 05/03/23 History Ipratropium-Albuterol Nebulize 3 ml INHALATION RT-QID PRN 05/03/23 05/03/23 History [Duoneb 0.5 mg-3 mg/3 ml Soln] Multivitamin [Multivitamins Adult 1 cap PO DAILY 05/03/23 05/03/23 History Gummies] Potassium Chloride ER [K-Dur 20] 20 meq PO DAILY 05/03/23 05/03/23 History atenoloL [Tenormin] 50 mg PO DAILY 05/03/23 05/03/23 History tiZANidine [Zanaflex] 2 mg PO DAILY PRN 05/03/23 05/03/23 History Allergies Allergy/AdvReac Type Severity Reaction Status Date / Time hydrocodone bitartrate AdvReac Nausea & Verified 05/03/23 21:39 [From Vicodin] Vomiting propoxyphene napsylate AdvReac Nausea & Verified 05/03/23 21:39 [From Darvocet-N 100] Vomiting Physical Exam Vitals: Vital Signs Temp Pulse Pulse Resp BP BP Pulse Ox 05/08/23 14:00 98.1 F 65 12 178/80 95 05/08/23 11:25 76 05/08/23 11:20 156/74 05/08/23 11:16 72 05/08/23 08:09 76 05/08/23 08:03 178/98 05/08/23 07:58 74 05/08/23 07:00 97.6 F 57 L 16 153/118 99 05/08/23 01:32 98.1 F 52 L 18 160/70 93 L 05/07/23 19:30 97.8 F 58 L 19 153/73 93 L Intake and Output 05/07/23 05/08/23 05/08/23 22:59 06:59 14:59 Intake Total 776 Balance 776 Intake: Oral 776 Other: Voiding Method Toilet Toilet # Voids 2 2 Weight 72.8 kg Results CBC & Chem 7: 05/07/23 05:27 05/08/23 13:31 Labs: Abnormal Lab Results - Last 24 Hours (Table) 10/30/23 10/30/23 10/31/23 Range/Units 17:02 22:10 06:41 POC Glucose (mg/dL) 111 H 205 H 132 H (70-110) mg/dL 05/08/23 Range/Units 12:18 POC Glucose (mg/dL) 219 H (70-110) mg/dL Assessment and Plan Plan: 1patient presented to hospital with elevated blood pressure shortness of breath possibly related to her worsening back pain in this patient with abnormality seen on the MRI of the lumbosacral spine concerning for possible discitis and osteomyelitis, patient however did not have any fever during this hospital stay and did have a normal white count her white count slightly up today could be related to the steroid that was started on 05/06/2023, case has been discussed with orthopedics and are planning for any surgery we will need to confirm the diagnosis and will ask IR for CT-guided aspiration of the area for microbiological diagnosis 2-we will check blood cultures and inflammatory markers 3-as the patient does not look toxic and to increase the yield of culture we will hold on adding any empiric antibiotic therapy at this point however we will start her once aspiration is done Patient did have multiple questions and concerns has been answered in layman term We will follow on clinical condition and cultures to further adjust medication if needed Thank you for this consultation we will follow the patient along with you Dictation was produced using [employer] dictation software. please excuse any grammatical, word or spelling errors. Time with Patient: Greater than 30
[2023-05-09] MEDS: MULTIVITAMINS, THERA 1 EACH TAB PO SCH (09:06)
[2023-05-09] MEDS: DAPAGLIFLOZIN PROPANEDIOL 5 MG TABLET PO SCH (09:06)
[2023-05-09] MEDS: methylPREDNISolone SOD SUCCI 40 MG/ML 1 ML VIAL IV SCH ×2 (09:06→20:45)
[2023-05-09] MEDS: PANTOPRAZOLE 40 MG/10 ML VIAL IV SCH (09:06)
[2023-05-09] MEDS: clonazePAM 1 MG TAB PO SCH ×3 (09:06→23:00)
[2023-05-09] MEDS: SERTRALINE 100 MG TAB PO SCH (09:06)
[2023-05-09] MEDS: amLODIPine 5 MG TAB PO SCH (09:07)
[2023-05-09] MEDS: GABAPENTIN 300 MG CAP PO SCH ×3 (09:07→23:00)
[2023-05-09] MEDS: POTASSIUM CHLORIDE ER 20 MEQ TAB.ER PO SCH (09:07)
[2023-05-09] MEDS: atenoloL 50 MG TAB PO SCH (09:07)
[2023-05-09] MEDS: HYDROcodone/APAP 7.5-325MG 1 EACH TAB PO SCH ×2 (09:07→20:44)
[2023-05-09] MEDS: ASPIRIN 81 MG PO SCH (09:08)
--- NOTE | 2023-05-09 10:27 | XR ---
EXAMINATION TYPE: XR chest 1V portable DATE OF EXAM: 05/09/2023 COMPARISON: 05/08/2023 HISTORY: Cough TECHNIQUE: Single frontal view of the chest is obtained. FINDINGS: There is no focal air space opacity, pleural effusion, or pneumothorax seen. The cardiac s ilhouette size is within normal limits. The osseous structures are intact. There is coarsened interst itium. There is shoulder arthropathy. Mild emphysematous changes. Atherosclerotic change aorta. IMPRESSION: Stable interstitial pattern. Suspect are predominantly on the basis of chronic interstit ial pulmonary fibrosis\COPD.
--- NOTE | 2023-05-09 10:34 | P.PN ---
Progress Note - Text Progress Note Date: 05/09/23 Orthopedics: History of present illness: Patient is a very pleasant 67-year-old female who is seen and examined at bedside for further evaluation of her lumbar spine and right hip. She was previously seen by us in October 2022 in regards to her lumbar spine. Sunday she presented to the emergency department due to shortness of breath and palpitations. She is currently undergoing further evaluation with medicine and cardiology. Cardiology followed with the patient yesterday and has signed off. Patient also has a history of coronary artery disease with previous stenting. She was on anticoagulation which she states was just discontinued through her primary care provider. She was also having some difficulty with elevated blood pressure at home. Radiology is present at the bedside to perform x-ray imaging of the chest. She is being seen by pulmonology as well. Her symptoms have remained the same as compared to yesterday. She has not had any significant improvement in regards to her pain. She states her low back pain is more significant than her lower extremity pain. She states her pain at her lumbar spine is better controlled while standing and can be exacerbated with lying down or sitting. In regards to her lumbar spine and right hip, she states she has significant pain and radiates across her lumbar spine, towards the right buttock, over the lateral hip, and down her right posterior lateral thigh. She's had some difficulty controlling her pain. She denies any specific recent injuries. She denies any left lower extremity radiculopathy. She is able to continue being able to perform active range of motion of her lower extremities independently at the bedside without significant difficulty. She follows with her primary care provider, Dr. Gregorio Garber, in the outpatient setting. She states she has had some injections for pain at his office. She is currently on hydrocodone as prescribed for pain control but states she does not take this medication frequently. She has not followed with pain management in the outpatient setting but would be willing to do so. She is unable to do this previous he due to anticoagulation use which has recently been discontinued. After her previous evaluation, she was planning for evaluation in the outpatient setting in regards to her lumbar spine but states due to multiple other appointments from a medical standpoint she had not scheduled follow-up appointment. She is admitted to medicine. Her other medical diagnoses include coronary artery disease, diabetes mellitus, COPD, history of DVT, hyperlipidemia, and hypertension. MRI imaging of the lumbar spine with contrast was performed yesterday. There was concern for L4-5 discitis/osteomyelitis. Dr. Allen in infectious disease has been consulted. He saw the patient and consulted interventional radiology for aspiration for culture. Prescription was written, signed, provided to case management for an LSO brace. Review of lumbar MRI him initial compression fractures at L4 and L5. This has been delivered and fitted properly. We did discuss patient should wear this brace during increased activities, ambulation, while sitting upright at greater than 45, and while working with physical therapy. Brace is not have to while lying in bed or bathing. Given her acute fractures, we will not plan for consultation with pain management. Physical exam: Patient is awake, alert, and oriented 3 Vital signs stable Adequate chest excursion with deep inspiration and expiration; currently undergoing a breathing treatment Examination of lumbar spine reveals skin is intact with no abrasions, lacerations, or bruises; no erythema, purulence or signs of infection No significant pain with palpation over midline of the lumbosacral spine or over the lumbar paraspinal muscles Dorsiflexion, plantarflexion, and extensor hallucis longus positive sustained bilaterally Patient does have some generalized weakness when trying to perform hip flexion bilaterally with better range of motion of her lower extremities today Patient is able to perform knee flexion bilaterally without significant difficulty today Straight leg test negative bilateral lower extremities No signs or symptoms of DVT; no calf pain No pain with internal and external rotation of the hips bilaterally Neurovascularly intact Pertinent studies: MRI of the lumbar spine with contrast taken on 05/08/2023: L4-5 findings reflex osteomyelitis of the inferior endplate of L4 and early discitis with L5 superior endplate change; L4-L5 facet hypertrophy with disc bulge and moderate bilateral foraminal narrowing MRI of the lumbar spine taken on 05/07/2023: Evidence of bone signal change within the inferior L4 vertebral body and superior endplate of the L5 vertebral body with bony edema present which appears to reflect acute fracture; abnormal appearance of the adjoining end plates of L4 and L5 with extension of disc space and irregular margin of the endplate suggestive of erosion which could consider postcontrast imaging reevaluation of osteomyelitis discitis; L2-3 Modic endplate change, degenerative disc disease, disc bulge, facet joint arthropathy with mild spinal canal stenosis and mild bilateral neural foraminal stenosis; L4-5 facet joint arthropathy with mild bilateral foraminal stenosis MRI of the right hip taken on 05/07/2023: 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 right greater than left with possible early collapse on the right; non-displaced labral tear with right hip X-rays of the lumbar spine taken on 05/05/2023: Degenerative scoliosis; L2-3 significant degenerative disc disease and lateral listhesis with osteophytic spurring; L4-5 worsening degenerative disc disease as compared to previous study taken from 10/19/2022; L4 inferior endplate compression deformity of indeterminate age with some apparent sclerosis; evidence of arterial stenting X-ray of the right hip taken on 05/05/2023: Mild to moderate osteoarthritis of the right hip joint spacing; no evidence of fracture dislocation at the right hip CT of the lumbar spine taken on 10/19/2022: Overall alignment is adequately maintained; L2-3 significant degenerative disc disease with anterior osteophytic spurring and slight lateral listhesis; no vertebral body compression fracture; slight degenerative scoliosis; there may be some spinal canal narrowing at L2-3 but no obvious herniated nucleus pulposus or stenosis Assessment: Acute L4 inferior endplate and L5 superior endplate compression fracture deformities L4-5 discitis/osteomyelitis Abnormal appearance of the adjoining end plates of L4 and L5 with extension of disc space and irregular margin of the endplate suggestive of erosion which could consider postcontrast imaging reevaluation of osteomyelitis discitis 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 right greater than left with possible e kat collapse on the right Non-displaced labral tear at the right hip Acute on chronic low back pain L4 inferior endplate compression fracture deformity of indeterminate age L4-5 worsening degenerative disc disease L2-3 degenerative disc disease and anterior osteophytic spurring L2-3 lateral listhesis Lumbar facet arthropathy Lumbar mild foraminal stenosis Right lower extremity radiculopathy Some weakness with hip flexion bilaterally and knee flexion on the right Degenerative scoliosis Mild to moderate right hip osteoarthritis Shortness of breath Diabetes mellitus Coronary artery disease History of DVT Hyperlipidemia History of hypertension Plan: 1. Patient does have a history of chronic low back pain. She's been treated and evaluated in the outpatient setting by her primary care provider. She has had some injections for her pain at her primary care provider's office. She has been intermittently taking hydrocodone as prescribed as needed for pain control. She does admit to increased difficulty prolonged ambulation or standing as it does exacerbate her low back pain. She has pain in her lumbosacral spine degrees with right buttock, over the right lateral hip, down the right posterior lateral thigh. She feels her symptoms have been worsening. Previous lumbar CT imaging was once again reviewed. Degenerative changes were most significant at L2-3 not L1-2. The CT does show some degenerative changes most significant at L2-3 with degenerative disc disease, lateral listhesis, and osteophytic spurring. There may be evidence of canal narrowing at this level. MRI imaging of the lumbar spine and right hip was performed previously. Lumbar MRI with contrast is also been performed. Lumbar MRI imaging has been reviewed by myself and Dr. Marco Antonio Sosa. Upon our review, it appears she has evidence of acute L4 inferior endplate and L5 superior endplate compression fracture deformities. Lumbar MRI also shows abnormal appearance of the adjoining end plates of L4 and L5 with extension of disc space and irregular margin of the endplate suggestive of erosion which could consider postcontrast imaging reevaluation of osteomyelitis discitis. MRI with contrast suggestive of L4-5 discitis/osteomyelitis. Dr. Morel in infectious disease has been consulted. He has consulted interventional radiology for aspiration for culture. He will plan to manage antibiotic medications. Given her fractures at L4 and L5, we'll also currently plan for conservative treatment with bracing. Previously,a prescription has been written and provided to case management for an LSO brace. This brace was delivered and fitted appropriately yesterday. We discussed at the bedside that the patient should wear this brace while sitting upright at greater than 45, during increase activities, during ambulation. Brace does not have to or while lying in bed or while bathing. We did discuss patient should avoid excessive bending, twisting, lifting activities. No lifting greater than 10 pounds. Her symptoms do appear to be most significant in regards to her lumbar spine rather than her right hip. We will continue to follow her closely. Currently, we are planning for conservative treatment in regards to her lumbar spine with continued treatment with infectious disease. 2. In regards to her right hip, x-rays show mild/moderate osteoarthritic of her right hip. MRI imaging of the right hip shows evidence of suspected bilateral avascular necrosis right greater than left with possible early collapse on the right and non-displaced labral tear at the right hip. She does not need acute treatment in this regard. We will currently planned to have her follow with Dr. Jordy Ye outpatient setting for further treatment and evaluation in this regard. 3. Patient will continue to be seen and examined by medicine and pulmonology; patient is scheduling follow-up evaluation in the outpatient setting with Dr. Best
--- NOTE | 2023-05-09 11:27 | P.PN ---
Subjective Progress Note Date: 05/09/23 Principal diagnosis: Back pain acute on chronic Hypertension hypertensive cardiovascular disease with labile blood pressure at home Acute on chronic exacerbation of congestive heart failure Chronic diastolic heart failure Coronary artery disease with history of stent placement Peripheral vascular disease with history of lower extremity intervention Dyslipidemia Hypertension hypertensive perivascular disease Type 2 diabetes mellitus History of smoking and nicotine use 05/09/2023, patient seen eval examined during rounds labs reviewed medications reviewed care plan discussed, is still having issues with the back pain, spine surgery has been seeing the patient awaiting their final recommendation, patient remains on diuresis with Lasix chronic changes are seen on the chest x-ray done earlier today likely COPD 05/08/2023, patient seen eval examined during rounds labs reviewed medications in the care plan discussed patient has a MRI of lumbar spine and right hip, patient has evidence of L4 and L5 compression fracture deformities with a possible element of [place] colitis/discitis lumbar MRI has been ordered orthopedic service and spine surgery has been following 05/07/2023, patient seen eval examined, ongoing shortness of breath is present patient continued severe pain, orthopedic and spine surgery is seeing patient has received a back brace but however pain is still there, patient is being evaluated for epidural injections by spine surgery. CBC done today reviewed WBC count 14.7 hemoglobin and hematocrit 12/40 platelet count 3 81,000 sodium was 144 potassium 4.5 BUN/creatinine is a 55/1.6 LFTs within normal limit. Medications reviewed patient remains on [place] for pain control also on DuoNeb 4 times a day as well as IV steroids, chest x-ray consistent with congestive heart failure and small bilateral pleural effusion cardiovascular services following Lasix is on hold 05/06/2023, patient seen eval examined during rounds labs reviewed medications reviewed care plan discussed, respiratory status stable, on as needed oxygen, most of time she is on oxygen at home at nighttime. Currently her pain in the back and hip is stable, orthopedic service and spine surgery is following, patient has been on pain medicine slightly somnolent but readily arousable patient being continued on her home medicine also on IV steroids 60 mg every 6 we'll start tapering it down repeat labs tomorrow as well 05/05/2023, patient seen eval examined during rounds labs reviewed medications reviewed care plan discussed, patient is 59-year-old female with a past medical history significant for congestive heart failure, coronary artery disease with previous stenting, hypertension, diabetes, hyperlipidemia, peripheral vascular disease with previous lower extremity stenting, chronic back pain, and former nicotine dependence. Patient has progressive shortness of breath yesterday that has since resolved. Her main complaint at the time of examination is back pain and she is requesting to be seen by an orthopedic surgeon. She was given 1 dose of IV Lasix by the emergency room physician. Her creatinine increased from 1.10 to 1.90. Chest x-ray suggestive of interstitial edema bilateral small pleural effusion, prior echocardiogram back in June 2022 ejection fraction is 55% with mild MR and TR with Performing 2017 stent in PDA Objective - Vital Signs Vital signs: Vital Signs Temp 97.8 F 05/09/23 08:00 Pulse 52 L 05/09/23 08:00 Resp 16 05/09/23 08:00 BP 162/68 05/09/23 09:05 Pulse Ox 97 05/09/23 10:00 FiO2 Intake & Output 05/08/23 05/09/23 05/09/23 18:59 06:59 18:59 Intake Total 776 236 Balance 776 236 Weight 70.9 kg Intake: Oral 776 236 Other: Voiding Method Toilet Toilet Toilet # Voids 2 - Exam - Constitutional General appearance: Present: average body habitus - EENT Eyes: Present: EOMI, PERRLA Ears: bilateral: normal - Neck Neck: Present: normal ROM Carotids: bilateral: upstroke normal Thyroid: bilateral: normal size - Respiratory Respiratory: bilateral: CTA - Cardiovascular Rhythm: regular Heart sounds: normal: S1, S2 - Gastrointestinal General gastrointestinal: Present: normal bowel sounds, soft - Integumentary Integumentary: Present: normal turgor - Neurologic Neurologic: Present: CNII-XII intact - Musculoskeletal Musculoskeletal: Present: gait normal, generalized weakness, strength equal bilaterally - Psychiatric Psychiatric: Present: A&O x's 3, appropriate affect, intact judgment & insight - Labs CBC & Chem 7: 05/07/23 05:27 05/08/23 13:31 Labs: Abnormal Lab Results - Last 24 Hours (Table) 05/08/23 05/08/23 05/08/23 Range/Units 12:18 13:31 14:59 ESR 36 H (0-30) mm/Hr Carbon Dioxide 20.0 L (21.6-31.8) mmol/L Anion Gap 14.00 H (4.00-12.00) mmol/L BUN 40.2 H (9.0-27.0) mg/dL Est GFR (CKD-EPI) 49 L (>=60) BUN/Creatinine Ratio 33.50 H (12.00-20.00) Ratio Glucose 207 H (70-110) mg/dL POC Glucose (mg/dL) 219 H (70-110) mg/dL 05/08/23 05/08/23 05/09/23 Range/Units 17:16 20:43 05:48 ESR (0-30) mm/Hr Carbon Dioxide (21.6-31.8) mmol/L Anion Gap (4.00-12.00) mmol/L BUN (9.0-27.0) mg/dL Est GFR (CKD-EPI) (>=60) BUN/Creatinine Ratio (12.00-20.00) Ratio Glucose (70-110) mg/dL POC Glucose (mg/dL) 113 H 146 H 153 H (70-110) mg/dL Assessment and Plan Assessment: Bilateral pleural effusion likely related to congestive heart failure Acute on chronic diastolic heart failure Back pain acute on chronic, patient is being evaluated for epidural by spine surgery Hypertension hypertensive cardiovascular disease with labile blood pressure at home Acute on chronic exacerbation of congestive heart failure Coronary artery disease with history of stent placement Peripheral vascular disease with history of lower extremity intervention Dyslipidemia Hypertension hypertensive perivascular disease Type 2 diabetes mellitus History of smoking and nicotine use Plan: Continue pain medications with [place], with breakthrough pain with morphine, agree with evaluation with epidural Continue bronchodilator with DuoNeb 4 times a day and when necessary as well as steroids up or down to IV every 12 40 mg Will obtain a chest x-ray as patient may need some diuresis Blood pressure control with Norvasc atenolol hydralazine Continue gentle diuresis Monitor renal functions closely Continue antihypertensive agent and anti-lipid agent as noted above along with statins Continue oral hypoglycemic agent as well as shorten Insulin Cardiovascular services following follow up on echocardiogram Orthopedic service including spine surgery have evaluated the patient awaiting further recommendation thought processes Time with Patient: Greater than 30
[2023-05-09 12:26] LABS: Glucose,Whole Blood 193 mg/dL (70-110)
[2023-05-09] MEDS ORDERED: HYDROmorphone 0.5 MG/0.5 ML SYRINGE IVP STA (12:50)
--- NOTE | 2023-05-09 12:50 | P.PN ---
Subjective Progress Note Date: 05/09/23 Principal diagnosis: Abnormal MRI and question of discitis/osteomyelitis Patient is a 67-year-old female with a past medical history significant for coronary artery disease COPD DVT fibromyalgia hypertension hyperlipidemia osteoarthritis patient presenting to the hospital with concern for elevated blood pressure shortness of breath and palpitation, possibly related to worsening of her lower back pain patient did have MRI of the lumbosacral spine with concern for possible osteomyelitis involving the L4-L5. On today's evaluation that is 05/09/2023, the patient continues to be afebrile , the patient is breathing comfortably on room air and denies any shortness of b reath, the patient denies any chest pain and no cough or sputum production, patient denies abdominal pain and no nausea/vomiting or diarrhea , patient denies any worsening pain to the lower back area Patient did have a sed rate of 36 and the CRP 0.8 Objective - Vital Signs Vital signs: Vital Signs Temp 97.8 F 05/09/23 08:00 Pulse 52 L 05/09/23 08:00 Resp 16 05/09/23 08:00 BP 162/68 05/09/23 09:05 Pulse Ox 97 05/09/23 10:00 FiO2 Intake & Output 05/08/23 05/09/23 05/09/23 18:59 06:59 18:59 Intake Total 776 Balance 776 Weight 70.9 kg Intake: Oral 776 Other: Voiding Method Toilet Toilet Toilet # Voids 2 - Exam GENERAL DESCRIPTION: An elderly female lying in bed in no distress RESPIRATORY SYSTEM: Unlabored breathing , clear to auscultation anteriorly HEART: S1 S2 regular rate and rhythm , ABDOMEN: Soft , no tenderness EXTREMITIES: No edema feet - Labs CBC & Chem 7: 05/07/23 05:27 05/08/23 13:31 Labs: Abnormal Lab Results - Last 24 Hours (Table) 05/08/23 05/08/23 05/08/23 Range/Units 12:18 13:31 14:59 ESR 36 H (0-30) mm/Hr Carbon Dioxide 20.0 L (21.6-31.8) mmol/L Anion Gap 14.00 H (4.00-12.00) mmol/L BUN 40.2 H (9.0-27.0) mg/dL Est GFR (CKD-EPI) 49 L (>=60) BUN/Creatinine Ratio 33.50 H (12.00-20.00) Ratio Glucose 207 H (70-110) mg/dL POC Glucose (mg/dL) 219 H (70-110) mg/dL 05/08/23 05/08/23 05/09/23 Range/Units 17:16 20:43 05:48 ESR (0-30) mm/Hr Carbon Dioxide (21.6-31.8) mmol/L Anion Gap (4.00-12.00) mmol/L BUN (9.0-27.0) mg/dL Est GFR (CKD-EPI) (>=60) BUN/Creatinine Ratio (12.00-20.00) Ratio Glucose (70-110) mg/dL POC Glucose (mg/dL) 113 H 146 H 153 H (70-110) mg/dL Assessment and Plan (1) Osteomyelitis Current Visit: Yes Status: Acute Code(s): M86.9 - OSTEOMYELITIS, UNSPECIFIED SNOMED Code(s): 30784617 Plan: 1patient presented to hospital with elevated blood pressure shortness of breath possibly related to her worsening back pain in this patient with abnormality seen on the MRI of the lumbosacral spine concerning for possible discitis and osteomyelitis, patient however did not have any fever during this hospital stay and did have a normal white count her white count slightly up today could be related to the steroid that was started on 05/06/2023, case has been discussed with orthopedics and are not planning for any surgery we will need to confirm the diagnosis and will ask IR for CT-guided aspiration of the area for microbiological diagnosis 2-blood cultures currently pending, CRP normal sed rate of 36 3-patient is scheduled for CT-guided aspirate of the area by IR this afternoon discuss with the IR on the phone 4-we will hold on adding any systemic antibiotic therapy at this point Dictation was produced using [employer] dictation software. please excuse any grammatical, word or spelling errors. Time with Patient: Less than 30
--- NOTE | 2023-05-09 13:28 | CT ---
EXAMINATION TYPE: CT guided aspiration DATE OF EXAM: 05/09/2023 COMPARISON: MRI and 3123. HISTORY: L4-L5 aspiration CT DLP: 1301 mGycm The procedure is discussed with the patient, the risks, complications, benefits and alternatives, wer e discussed and any questions were answered. Informed consent was obtained. The patient is placed p andres on the CT table, prepped and draped in the usual sterile fashion. Utilizing a 20-gauge [place] needle access into the L4-L5 disc space was achieved with a tiny aspirate obtained. Pathology pending. All elements of maximal barrier and sterile technique were utilized. The patient remained stable throughout the procedure with no immediate postprocedural complication. IMPRESSION: 1. Successful CT guided fine needle aspiration of L4-L5 disc space for possible discitis.
[2023-05-09 17:43] LABS: Glucose,Whole Blood 151 mg/dL (70-110)
[2023-05-09] MEDS: ATORVASTATIN 80 MG TAB PO SCH (20:44)
[2023-05-09 20:59] LABS: Glucose,Whole Blood 132 mg/dL (70-110)
[2023-05-10] MEDS: MORPHINE SULFATE 4 MG/ML SYRINGE IV PRN ×2 (00:09→23:27)
[2023-05-10 06:23] LABS: Glucose,Whole Blood 192 mg/dL (70-110)
[2023-05-10] MEDS: INSULIN ASPART (NovoLOG) 100 UNIT/ML VIAL SQ SCH ×4 (06:27→20:21)
[2023-05-10] MEDS: IPRATROPIUM-ALBUTEROL 3 ML NEB INHALATION PRN ×4 (07:57→20:01)
[2023-05-10] MEDS: HYDROcodone/APAP 7.5-325MG 1 EACH TAB PO SCH ×2 (08:42→20:20)
[2023-05-10] MEDS: clonazePAM 1 MG TAB PO SCH ×3 (08:42→22:10)
[2023-05-10] MEDS: PANTOPRAZOLE 40 MG/10 ML VIAL IV SCH (08:42)
[2023-05-10] MEDS: methylPREDNISolone SOD SUCCI 40 MG/ML 1 ML VIAL IV SCH ×2 (08:42→20:19)
[2023-05-10] MEDS: ASPIRIN 81 MG PO SCH (08:42)
[2023-05-10] MEDS: GABAPENTIN 300 MG CAP PO SCH ×3 (08:42→22:10)
[2023-05-10] MEDS: POTASSIUM CHLORIDE ER 20 MEQ TAB.ER PO SCH (08:43)
[2023-05-10] MEDS: MULTIVITAMINS, THERA 1 EACH TAB PO SCH (08:43)
[2023-05-10] MEDS: amLODIPine 5 MG TAB PO SCH (08:43)
[2023-05-10] MEDS: DAPAGLIFLOZIN PROPANEDIOL 5 MG TABLET PO SCH (08:43)
[2023-05-10] MEDS: atenoloL 50 MG TAB PO SCH (08:43)
[2023-05-10] MEDS: SERTRALINE 100 MG TAB PO SCH (08:43)
--- NOTE | 2023-05-10 11:27 | P.PN ---
Progress Note - Text Progress Note Date: 05/10/23 Patient is seen and examined today at bedside. The patient has some pain around the her lower back which has been consistent. She's not having any new leg pain. Pain is being controlled with medication. She had her lumbar biopsy with interventional radiology this morning and results are pending. She tolerated the procedure well. Physical Exam Afebrile with stable vital signs Abdomen is soft nontender. Chest has good excursion deep and space expiration The incision site is clean dry and intact. No erythema there is no purulence. Extremities have sustained dorsal to plantar flexion and EHL. She has been able to turn in her room with a walker Calves and thighs were soft nontender without evidence of DVT. Assessment/Plan The patient has some changes at her lumbar spine which are presumed to be osteoporotic compression fracture and motor changes with degeneration. We will plan conservative measures for this. Some of her imaging showed the possibility of infectious process. Her labs do not show increased inflammatory markers and her sed rate and CRP are essentially normal. I talked to infectious disease about this as well. Clinical she does not appear to be infectious in nature and her labs do not sported but with the imaging we had further workup. If the CT-guided biopsy is negative for infectious process then I think that she may not need long-term antibiotics. And we can continue care with bracing and pain control and gentle coagulation. If there is positive then certainly she will continue antibiotics per infectious disease. We will continue to increase the patient's mobilization with therapy with her brace on. We will continue pain control with oral or IV medications. We'll continue to follow patient closely.
[2023-05-10 12:20] LABS: Glucose,Whole Blood 293 mg/dL (70-110)
--- NOTE | 2023-05-10 15:06 | P.PN ---
Subjective Progress Note Date: 05/10/23 Principal diagnosis: Abnormal MRI and question of discitis/osteomyelitis Patient is a 67-year-old female with a past medical history significant for coronary artery disease COPD DVT fibromyalgia hypertension hyperlipidemia osteoarthritis patient presenting to the hospital with concern for elevated blood pressure shortness of breath and palpitation, possibly related to worsening of her lower back pain patient did have MRI of the lumbosacral spine with concern for possible osteomyelitis involving the L4-L5. Patient is status post CT-guided aspirate of the suspected area on 05/09/2023 On today's evaluation that is 05/10/2023, the patient denies any fever or any ch ills , the patient is breathing comfortably on room air and no need for supplemental oxygen, the patient denies any chest pain or cough and no sputum production, patient denies abdominal pain and no nausea/vomiting or diarrhea , patient still complaining of pain to the lower back area but denies any worsening Patient did have a sed rate of 36 and the CRP 0.8, no lab draw today Objective - Vital Signs Vital signs: Vital Signs Temp 97.8 F 05/10/23 07:52 Pulse 60 05/10/23 08:09 Resp 19 05/10/23 07:52 BP 159/60 05/10/23 07:52 Pulse Ox 94 L 05/10/23 07:59 FiO2 Intake & Output 05/09/23 05/10/23 05/10/23 18:59 06:59 18:59 Intake Total 945 180 Balance 945 180 Weight 70.8 kg Intake: Oral 945 180 Other: Voiding Method Toilet Toilet # Voids 1 3 - Exam GENERAL DESCRIPTION: An elderly female lying in bed in no distress RESPIRATORY SYSTEM: Unlabored breathing , clear to auscultation anteriorly HEART: S1 S2 regular rate and rhythm , ABDOMEN: Soft , no tenderness EXTREMITIES: No edema feet - Labs CBC & Chem 7: 05/07/23 05:27 05/08/23 13:31 Labs: Abnormal Lab Results - Last 24 Hours (Table) 05/09/23 05/09/23 05/09/23 Range/Units 12:24 17:42 20:55 POC Glucose (mg/dL) 193 H 151 H 132 H (70-110) mg/dL 05/10/23 Range/Units 06:22 POC Glucose (mg/dL) 192 H (70-110) mg/dL Microbiology - Last 24 Hours (Table) 05/08/23 15:03 Blood Culture - Preliminary Blood 05/08/23 15:08 Blood Culture - Preliminary Blood Assessment and Plan (1) Osteomyelitis Current Visit: Yes Status: Acute Code(s): M86.9 - OSTEOMYELITIS, UNSPECIFIED SNOMED Code(s): 64246820 Plan: 1patient presented to hospital with elevated blood pressure shortness of breath possibly related to her worsening back pain in this patient with abnormality seen on the MRI of the lumbosacral spine concerning for possible discitis and osteomyelitis, patient however did not have any fever during this hospital stay and did have a normal white count her white count slightly up today could be related to the steroid that was started on 05/06/2023, case has been discussed with orthopedics and are not planning for any surgery we will need to confirm the diagnosis and will ask IR for CT-guided aspiration of the area for microbiological diagnosis 2-blood cultures currently pending, CRP normal sed rate of 36 3-patient is status post CT-guided aspirate of the suspected area by IR and cultures are currently pending 4-clinical suspicion is low for osteomyelitis/discitis also discuss with the spine surgery Dr. napier , and we will monitor closely off systemic antibiotic therapy at this point Dictation was produced using [employer] dictation software. please excuse any grammatical, word or spelling errors. Time with Patient: Less than 30
[2023-05-10 16:06] VITALS: BMI 31.5
[2023-05-10 17:31] LABS: Glucose,Whole Blood 193 mg/dL (70-110)
[2023-05-10] MEDS: ATORVASTATIN 80 MG TAB PO SCH (20:20)
[2023-05-10 20:22] LABS: Glucose,Whole Blood 168 mg/dL (70-110)
[2023-05-11 06:26] LABS: Glucose,Whole Blood 218 mg/dL (70-110)
[2023-05-11] MEDS: SODIUM CHLORIDE 0.9% 1,000 ML IV SCH (06:26)
[2023-05-11] MEDS: INSULIN ASPART (NovoLOG) 100 UNIT/ML VIAL SQ SCH ×4 (06:31→20:33)
[2023-05-11] MEDS: MORPHINE SULFATE 4 MG/ML SYRINGE IV PRN ×2 (06:31→15:25)
[2023-05-11] MEDS: IPRATROPIUM-ALBUTEROL 3 ML NEB INHALATION PRN ×4 (07:49→19:30)
[2023-05-11] MEDS: methylPREDNISolone SOD SUCCI 40 MG/ML 1 ML VIAL IV SCH ×2 (11:17→20:25)
[2023-05-11] MEDS: SERTRALINE 100 MG TAB PO SCH (11:18)
[2023-05-11] MEDS: PANTOPRAZOLE 40 MG/10 ML VIAL IV SCH (11:18)
[2023-05-11] MEDS: GABAPENTIN 300 MG CAP PO SCH ×3 (11:18→20:26)
[2023-05-11] MEDS: atenoloL 50 MG TAB PO SCH (11:18)
[2023-05-11] MEDS: DAPAGLIFLOZIN PROPANEDIOL 5 MG TABLET PO SCH (11:18)
[2023-05-11] MEDS: POTASSIUM CHLORIDE ER 20 MEQ TAB.ER PO SCH (11:18)
[2023-05-11] MEDS: amLODIPine 5 MG TAB PO SCH (11:18)
[2023-05-11] MEDS: MULTIVITAMINS, THERA 1 EACH TAB PO SCH (11:18)
[2023-05-11] MEDS: ASPIRIN 81 MG PO SCH (11:19)
[2023-05-11] MEDS: HYDROcodone/APAP 7.5-325MG 1 EACH TAB PO SCH ×2 (11:26→20:25)
[2023-05-11] MEDS: clonazePAM 1 MG TAB PO SCH ×3 (11:26→20:26)
[2023-05-11 12:43] LABS: Glucose,Whole Blood 213 mg/dL (70-110)
[2023-05-11 17:10] LABS: Glucose,Whole Blood 250 mg/dL (70-110)
[2023-05-11] MEDS: hydrALAZINE HCL 50 MG TAB PO PRN (17:20)
[2023-05-11] MEDS: ATORVASTATIN 80 MG TAB PO SCH (20:26)
--- NOTE | 2023-05-11 20:27 | P.PN ---
Subjective Progress Note Date: 05/10/23 Principal diagnosis: Back pain acute on chronic Hypertension hypertensive cardiovascular disease with labile blood pressure at home Acute on chronic exacerbation of congestive heart failure Chronic diastolic heart failure Coronary artery disease with history of stent placement Peripheral vascular disease with history of lower extremity intervention Dyslipidemia Hypertension hypertensive perivascular disease Type 2 diabetes mellitus History of smoking and nicotine use 05/10/2023, patient seen and evaluated examined the rounds labs reviewed medications reviewed care plan discussed, is status post a lumbar biopsy by IR results pending, denies any pain shortness of breath stable but on exertion she gets short of breath she remains on Lasix along with continuation of home medications 05/09/2023, patient seen eval examined during rounds labs reviewed medications reviewed care plan discussed, is still having issues with the back pain, spine surgery has been seeing the patient awaiting their final recommendation, patient remains on diuresis with Lasix chronic changes are seen on the chest x-ray done earlier today likely COPD 05/08/2023, patient seen eval examined during rounds labs reviewed medications in the care plan discussed patient has a MRI of lumbar spine and right hip, patient has evidence of L4 and L5 compression fracture deformities with a possible element of [place] colitis/discitis lumbar MRI has been ordered orthopedic service and spine surgery has been following 05/07/2023, patient seen eval examined, ongoing shortness of breath is present patient continued severe pain, orthopedic and spine surgery is seeing patient has received a back brace but however pain is still there, patient is being evaluated for epidural injections by spine surgery. CBC done today reviewed WBC count 14.7 hemoglobin and hematocrit 12/40 platelet count 3 81,000 sodium was 144 potassium 4.5 BUN/creatinine is a 55/1.6 LFTs within normal limit. Medications reviewed patient remains on [place] for pain control also on DuoNeb 4 times a day as well as IV steroids, chest x-ray consistent with congestive heart failure and small bilateral pleural effusion cardiovascular services following Lasix is on hold 05/06/2023, patient seen eval examined during rounds labs reviewed medications reviewed care plan discussed, respiratory status stable, on as needed oxygen, most of time she is on oxygen at home at nighttime. Currently her pain in the back and hip is stable, orthopedic service and spine surgery is following, patient has been on pain medicine slightly somnolent but readily arousable patient being continued on her home medicine also on IV steroids 60 mg every 6 we'll start tapering it down repeat labs tomorrow as well 05/05/2023, patient seen eval examined during rounds labs reviewed medications reviewed care plan discussed, patient is 59-year-old female with a past medical history significant for congestive heart failure, coronary artery disease with previous stenting, hypertension, diabetes, hyperlipidemia, peripheral vascular disease with previous lower extremity stenting, chronic back pain, and former nicotine dependence. Patient has progressive shortness of breath yesterday that has since resolved. Her main complaint at the time of examination is back pain and she is requesting to be seen by an orthopedic surgeon. She was given 1 dose of IV Lasix by the emergency room physician. Her creatinine increased from 1.10 to 1.90. Chest x-ray suggestive of interstitial edema bilateral small pleural effusion, prior echocardiogram back in June 2022 ejection fraction is 55% with mild MR and TR with Performing 2017 stent in PDA Objective - Vital Signs Vital signs: Vital Signs Temp 97.8 F 05/10/23 07:52 Pulse 62 05/10/23 11:45 Resp 19 05/10/23 07:52 BP 159/60 05/10/23 07:52 Pulse Ox 94 L 05/10/23 07:59 FiO2 Intake & Output 05/09/23 05/10/23 05/10/23 18:59 06:59 18:59 Intake Total 945 180 Balance 945 180 Weight 70.8 kg Intake: Oral 945 180 Other: Voiding Method Toilet Toilet # Voids 1 3 - Exam - Constitutional General appearance: Present: average body habitus - EENT Eyes: Present: EOMI, PERRLA Ears: bilateral: normal - Neck Neck: Present: normal ROM Carotids: bilateral: upstroke normal Thyroid: bilateral: normal size - Respiratory Respiratory: bilateral: CTA - Cardiovascular Rhythm: regular Heart sounds: normal: S1, S2 - Gastrointestinal General gastrointestinal: Present: normal bowel sounds, soft - Integumentary Integumentary: Present: normal turgor - Neurologic Neurologic: Present: CNII-XII intact - Musculoskeletal Musculoskeletal: Present: gait normal, generalized weakness, strength equal bilaterally - Psychiatric Psychiatric: Present: A&O x's 3, appropriate affect, intact judgment & insight - Labs CBC & Chem 7: 05/07/23 05:27 05/08/23 13:31 Labs: Abnormal Lab Results - Last 24 Hours (Table) 05/09/23 05/09/23 05/10/23 Range/Units 17:42 20:55 06:22 POC Glucose (mg/dL) 151 H 132 H 192 H (70-110) mg/dL 05/10/23 Range/Units 12:19 POC Glucose (mg/dL) 293 H (70-110) mg/dL Microbiology - Last 24 Hours (Table) 05/08/23 15:03 Blood Culture - Preliminary Blood 05/08/23 15:08 Blood Culture - Preliminary Blood Assessment and Plan Assessment: Bilateral pleural effusion likely related to congestive heart failure Acute on chronic diastolic heart failure Back pain acute on chronic, patient is being evaluated for epidural by spine surgery Hypertension hypertensive cardiovascular disease with labile blood pressure at home Acute on chronic exacerbation of congestive heart failure Coronary artery disease with history of stent placement Peripheral vascular disease with history of lower extremity intervention Dyslipidemia Hypertension hypertensive perivascular disease Type 2 diabetes mellitus History of smoking and nicotine use Plan: Continue pain medications with [place], with breakthrough pain with morphine, a gree with evaluation with epidural Continue bronchodilator with DuoNeb 4 times a day and when necessary as well as steroids up or down to IV every 12 40 mg Will obtain a chest x-ray as patient may need some diuresis Blood pressure control with Norvasc atenolol hydralazine Continue gentle diuresis Monitor renal functions closely Continue antihypertensive agent and anti-lipid agent as noted above along with statins Continue oral hypoglycemic agent as well as shorten Insulin Cardiovascular services following follow up on echocardiogram Orthopedic service including spine surgery have evaluated the patient awaiting further recommendation thought processes Time with Patient: Greater than 30
[2023-05-11 20:28] LABS: Glucose,Whole Blood 209 mg/dL (70-110)
--- NOTE | 2023-05-11 20:29 | P.PN ---
Subjective Progress Note Date: 05/11/23 Principal diagnosis: Back pain acute on chronic Hypertension hypertensive cardiovascular disease with labile blood pressure at home Acute on chronic exacerbation of congestive heart failure Chronic diastolic heart failure Coronary artery disease with history of stent placement Peripheral vascular disease with history of lower extremity intervention Dyslipidemia Hypertension hypertensive perivascular disease Type 2 diabetes mellitus History of smoking and nicotine use 05/11/2023, patient seen and evaluated examined during rounds labs reviewed medications reviewed care plan discussed, awaiting biopsy results, so far culture results and reports are negative 05/10/2023, patient seen and evaluated examined the rounds labs reviewed medications reviewed care plan discussed, is status post a lumbar biopsy by IR results pending, denies any pain shortness of breath stable but on exertion she gets short of breath she remains on Lasix along with continuation of home medications 05/09/2023, patient seen eval examined during rounds labs reviewed medications reviewed care plan discussed, is still having issues with the back pain, spine surgery has been seeing the patient awaiting their final recommendation, patient remains on diuresis with Lasix chronic changes are seen on the chest x-ray done earlier today likely COPD 05/08/2023, patient seen eval examined during rounds labs reviewed medications in the care plan discussed patient has a MRI of lumbar spine and right hip, patient has evidence of L4 and L5 compression fracture deformities with a possible element of [place] colitis/discitis lumbar MRI has been ordered orthopedic service and spine surgery has been following 05/07/2023, patient seen eval examined, ongoing shortness of breath is present patient continued severe pain, orthopedic and spine surgery is seeing patient has received a back brace but however pain is still there, patient is being evaluated for epidural injections by spine surgery. CBC done today reviewed WBC count 14.7 hemoglobin and hematocrit 12/40 platelet count 3 81,000 sodium was 144 potassium 4.5 BUN/creatinine is a 55/1.6 LFTs within normal limit. Medications reviewed patient remains on [place] for pain control also on DuoNeb 4 times a day as well as IV steroids, chest x-ray consistent with congestive heart failure and small bilateral pleural effusion cardiovascular services following Lasix is on hold 05/06/2023, patient seen eval examined during rounds labs reviewed medications reviewed care plan discussed, respiratory status stable, on as needed oxygen, most of time she is on oxygen at home at nighttime. Currently her pain in the back and hip is stable, orthopedic service and spine surgery is following, patient has been on pain medicine slightly somnolent but readily arousable patient being continued on her home medicine also on IV steroids 60 mg every 6 we'll start tapering it down repeat labs tomorrow as well 05/05/2023, patient seen eval examined during rounds labs reviewed medications reviewed care plan discussed, patient is 59-year-old female with a past medical history significant for congestive heart failure, coronary artery disease with previous stenting, hypertension, diabetes, hyperlipidemia, peripheral vascular disease with previous lower extremity stenting, chronic back pain, and former nicotine dependence. Patient has progressive shortness of breath yesterday that has since resolved. Her main complaint at the time of examination is back pain and she is requesting to be seen by an orthopedic surgeon. She was given 1 dose of IV Lasix by the emergency room physician. Her creatinine increased from 1.10 to 1.90. Chest x-ray suggestive of interstitial edema bilateral small pleural effusion, prior echocardiogram back in June 2022 ejection fraction is 55% with mild MR and TR with Performing 2017 stent in PDA Objective - Vital Signs Vital signs: Vital Signs Temp 98.4 F 05/11/23 18:20 Pulse 68 05/11/23 19:46 Resp 12 05/11/23 18:20 BP 171/66 05/11/23 18:20 Pulse Ox 94 L 05/11/23 18:20 FiO2 Intake & Output 05/11/23 05/11/23 05/12/23 06:59 18:59 06:59 Intake Total 358 Balance 358 Weight 70.7 kg Intake: Oral 358 Other: Voiding Method Toilet # Voids 2 - Exam - Constitutional General appearance: Present: average body habitus - EENT Eyes: Present: EOMI, PERRLA Ears: bilateral: normal - Neck Neck: Present: normal ROM Carotids: bilateral: upstroke normal Thyroid: bilateral: normal size - Respiratory Respiratory: bilateral: CTA - Cardiovascular Rhythm: regular Heart sounds: normal: S1, S2 - Gastrointestinal General gastrointestinal: Present: normal bowel sounds, soft - Integumentary Integumentary: Present: normal turgor - Neurologic Neurologic: Present: CNII-XII intact - Musculoskeletal Musculoskeletal: Present: gait normal, generalized weakness, strength equal bilaterally - Psychiatric Psychiatric: Present: A&O x's 3, appropriate affect, intact judgment & insight - Labs CBC & Chem 7: 05/07/23 05:27 05/08/23 13:31 Labs: Abnormal Lab Results - Last 24 Hours (Table) 05/11/23 05/11/23 05/11/23 Range/Units 06:25 12:42 17:09 POC Glucose (mg/dL) 218 H 213 H 250 H (70-110) mg/dL Microbiology - Last 24 Hours (Table) 05/09/23 13:25 Gram Stain - Preliminary Aspirate Body Fluid Culture - Preliminary 05/08/23 15:03 Blood Culture - Preliminary Blood 05/08/23 15:08 Blood Culture - Preliminary Blood Assessment and Plan Assessment: Bilateral pleural effusion likely related to congestive heart failure Acute on chronic diastolic heart failure Back pain acute on chronic, patient is being evaluated for epidural by spine surgery status post biopsy cultures have been so far negative Hypertension hypertensive cardiovascular disease with labile blood pressure at home Acute on chronic exacerbation of congestive heart failure Coronary artery disease with history of stent placement Peripheral vascular disease with history of lower extremity intervention Dyslipidemia Hypertension hypertensive perivascular disease Type 2 diabetes mellitus History of smoking and nicotine use Plan: Continue pain medications with [place], with breakthrough pain with morphine, agree with evaluation with epidural Continue bronchodilator with DuoNeb 4 times a day and when necessary as well as steroids up or down to IV every 12 40 mg Will obtain a chest x-ray as patient may need some diuresis Blood pressure control with Norvasc atenolol hydralazine Continue gentle diuresis Monitor renal functions closely Continue antihypertensive agent and anti-lipid agent as noted above along with statins Continue oral hypoglycemic agent as well as shorten Insulin Cardiovascular services following follow up on echocardiogram Orthopedic service including spine surgery have evaluated the patient awaiting further recommendation thought processes Time with Patient: Greater than 30
[2023-05-12] MEDS: MORPHINE SULFATE 4 MG/ML SYRINGE IV PRN ×3 (02:14→23:29)
[2023-05-12] MEDS: SODIUM CHLORIDE 0.9% 1,000 ML IV SCH (04:00)
[2023-05-12 06:24] LABS: Glucose,Whole Blood 175 mg/dL (70-110)
[2023-05-12] MEDS: INSULIN ASPART (NovoLOG) 100 UNIT/ML VIAL SQ SCH ×4 (06:34→21:45)
[2023-05-12] MEDS: IPRATROPIUM-ALBUTEROL 3 ML NEB INHALATION PRN ×3 (07:32→19:39)
[2023-05-12] MEDS: MULTIVITAMINS, THERA 1 EACH TAB PO SCH (08:26)
[2023-05-12] MEDS: DAPAGLIFLOZIN PROPANEDIOL 5 MG TABLET PO SCH (08:26)
[2023-05-12] MEDS: clonazePAM 1 MG TAB PO SCH ×3 (08:26→21:44)
[2023-05-12] MEDS: atenoloL 50 MG TAB PO SCH (08:26)
[2023-05-12] MEDS: ASPIRIN 81 MG PO SCH (08:26)
[2023-05-12] MEDS: GABAPENTIN 300 MG CAP PO SCH ×3 (08:26→21:44)
[2023-05-12] MEDS: PANTOPRAZOLE 40 MG/10 ML VIAL IV SCH (08:26)
[2023-05-12] MEDS: methylPREDNISolone SOD SUCCI 40 MG/ML 1 ML VIAL IV SCH ×2 (08:26→21:44)
[2023-05-12] MEDS: SERTRALINE 100 MG TAB PO SCH (08:26)
[2023-05-12] MEDS: HYDROcodone/APAP 7.5-325MG 1 EACH TAB PO SCH ×2 (08:26→21:44)
[2023-05-12] MEDS: POTASSIUM CHLORIDE ER 20 MEQ TAB.ER PO SCH (08:26)
[2023-05-12] MEDS: amLODIPine 5 MG TAB PO SCH (08:26)
--- NOTE | 2023-05-12 10:25 | P.PN ---
Subjective Progress Note Date: 05/12/23 This is a 67-year-old female who is being followed by orthopedics for her lower back. Patient is awaiting biopsy results for the lumbar spine. Patient is seen and evaluated at bedside today. Patient states that her pain is well controlled and she has been able to mobilize. Objective - Vital Signs Vital signs: Vital Signs Temp 97.7 F 05/12/23 08:09 Pulse 65 05/12/23 08:09 Resp 16 05/12/23 08:09 BP 171/70 05/12/23 09:02 Pulse Ox 97 05/12/23 08:09 FiO2 Intake & Output 05/11/23 05/12/23 05/12/23 18:59 06:59 18:59 Intake Total 358 Balance 358 Weight 70.8 kg Intake: Oral 358 Other: Voiding Method Toilet # Voids 2 - Exam On exam patient is sitting up comfortably in bed in no acute distress. Patient is alert and oriented 3. Bilateral lower extremities are warm and well perfused. Calves are soft and nontender to palpation. Neurovascular status and circulatory status are intact. - Labs CBC & Chem 7: 05/07/23 05:27 05/08/23 13:31 Labs: Abnormal Lab Results - Last 24 Hours (Table) 05/11/23 05/11/23 05/11/23 Range/Units 12:42 17:09 20:26 POC Glucose (mg/dL) 213 H 250 H 209 H (70-110) mg/dL 05/12/23 Range/Units 06:23 POC Glucose (mg/dL) 175 H (70-110) mg/dL Microbiology - Last 24 Hours (Table) 05/08/23 15:03 Blood Culture - Preliminary Blood 05/08/23 15:08 Blood Culture - Preliminary Blood 05/09/23 13:25 Gram Stain - Preliminary Aspirate Body Fluid Culture - Preliminary Assessment and Plan (1) Acute exacerbation of chronic low back pain Current Visit: Yes Status: Acute Code(s): M54.50 - LOW BACK PAIN, UNSPECIFIED; G89.29 - OTHER CHRONIC PAIN SNOMED Code(s): 773024782 Plan: Patient is awaiting biopsy results. There is no surgical intervention planned. Continue pain control. Patient may be discharged from an orthopedic standpoint once cleared medically.
[2023-05-12 12:10] LABS: Glucose,Whole Blood 361 mg/dL (70-110)
[2023-05-12 17:13] LABS: Glucose,Whole Blood 116 mg/dL (70-110)
[2023-05-12] MEDS: hydrALAZINE HCL 50 MG TAB PO PRN (17:43)
[2023-05-12 21:10] LABS: Glucose,Whole Blood 181 mg/dL (70-110)
[2023-05-12] MEDS: ATORVASTATIN 80 MG TAB PO SCH (21:44)
--- NOTE | 2023-05-12 23:52 | P.PN ---
Subjective Progress Note Date: 05/12/23 Principal diagnosis: Back pain acute on chronic Hypertension hypertensive cardiovascular disease with labile blood pressure at home Acute on chronic exacerbation of congestive heart failure Chronic diastolic heart failure Coronary artery disease with history of stent placement Peripheral vascular disease with history of lower extremity intervention Dyslipidemia Hypertension hypertensive perivascular disease Type 2 diabetes mellitus History of smoking and nicotine use 05/12/2023, patient seen eval examined during rounds labs reviewed medications reviewed, patient continue when necessary pain medications, she had pain is improved but however does intermittently anxious patient has been noted, orthopedic spine surgery has been following, I did receive a call from her [employer] hter expressing concern about involvement with narcotics of the patient in addition potential overdose, we'll consult psych service for concerns of family about potential drug overdose- 05/11/2023, patient seen and evaluated examined during rounds labs reviewed medications reviewed care plan discussed, awaiting biopsy results, so far culture results and reports are negative 05/10/2023, patient seen and evaluated examined the rounds labs reviewed medications reviewed care plan discussed, is status post a lumbar biopsy by IR results pending, denies any pain shortness of breath stable but on exertion she gets short of breath she remains on Lasix along with continuation of home medications 05/09/2023, patient seen eval examined during rounds labs reviewed medications reviewed care plan discussed, is still having issues with the back pain, spine surgery has been seeing the patient awaiting their final recommendation, patient remains on diuresis with Lasix chronic changes are seen on the chest x-ray done earlier today likely COPD 05/08/2023, patient seen eval examined during rounds labs reviewed medications in the care plan discussed patient has a MRI of lumbar spine and right hip, patient has evidence of L4 and L5 compression fracture deformities with a possible element of [place] colitis/discitis lumbar MRI has been ordered orthopedic service and spine surgery has been following 05/07/2023, patient seen eval examined, ongoing shortness of breath is present patient continued severe pain, orthopedic and spine surgery is seeing patient has received a back brace but however pain is still there, patient is being evaluated for epidural injections by spine surgery. CBC done today reviewed WBC count 14.7 hemoglobin and hematocrit 12/40 platelet count 3 81,000 sodium was 144 potassium 4.5 BUN/creatinine is a 55/1.6 LFTs within normal limit. Medications reviewed patient remains on [place] for pain control also on DuoNeb 4 times a day as well as IV steroids, chest x-ray consistent with congestive heart failure and small bilateral pleural effusion cardiovascular services following Lasix is on hold 05/06/2023, patient seen sergio examined during rounds labs reviewed medications reviewed care plan discussed, respiratory status stable, on as needed oxygen, most of time she is on oxygen at home at nighttime. Currently her pain in the back and hip is stable, orthopedic service and spine surgery is following, patient has been on pain medicine slightly somnolent but readily arousable patient being continued on her home medicine also on IV steroids 60 mg every 6 we'll start tapering it down repeat labs tomorrow as well 05/05/2023, patient seen sergio examined during rounds labs reviewed medications reviewed care plan discussed, patient is 59-year-old female with a past medical history significant for congestive heart failure, coronary artery disease with previous stenting, hypertension, diabetes, hyperlipidemia, peripheral vascular disease with previous lower extremity stenting, chronic back pain, and former nicotine dependence. Patient has progressive shortness of breath yesterday that has since resolved. Her main complaint at the time of examination is back pain and she is requesting to be seen by an orthopedic surgeon. She was given 1 dose of IV Lasix by the emergency room physician. Her creatinine increased from 1.10 to 1.90. Chest x-ray suggestive of interstitial edema bilateral small pleural effusion, prior echocardiogram back in June 2022 ejection fraction is 55% with mild MR and TR with Performing 2017 stent in PDA Objective - Vital Signs Vital signs: Vital Signs Temp 97.7 F 05/12/23 20:45 Pulse 69 05/12/23 20:45 Resp 19 05/12/23 20:45 BP 147/71 05/12/23 20:45 Pulse Ox 98 05/12/23 20:45 FiO2 Intake & Output 05/12/23 05/12/23 05/13/23 06:59 18:59 05:59 Intake Total 358 Balance 358 Weight 70.8 kg Intake: Oral 358 Other: Voiding Method Toilet Toilet Toilet # Voids 2 1 1 - Exam - Constitutional General appearance: Present: average body habitus - EENT Eyes: Present: EOMI, PERRLA Ears: bilateral: normal - Neck Neck: Present: normal ROM Carotids: bilateral: upstroke normal Thyroid: bilateral: normal size - Respiratory Respiratory: bilateral: CTA - Cardiovascular Rhythm: regular Heart sounds: normal: S1, S2 - Gastrointestinal General gastrointestinal: Present: normal bowel sounds, soft - Integumentary Integumentary: Present: normal turgor - Neurologic Neurologic: Present: CNII-XII intact - Musculoskeletal Musculoskeletal: Present: gait normal, generalized weakness, strength equal bilaterally - Psychiatric Psychiatric: Present: A&O x's 3, appropriate affect, intact judgment & insight - Labs CBC & Chem 7: 05/07/23 05:27 05/08/23 13:31 Labs: Abnormal Lab Results - Last 24 Hours (Table) 05/12/23 05/12/23 05/12/23 Range/Units 06:23 12:09 17:12 POC Glucose (mg/dL) 175 H 361 H 116 H (70-110) mg/dL 05/12/23 Range/Units 21:08 POC Glucose (mg/dL) 181 H (70-110) mg/dL Microbiology - Last 24 Hours (Table) 05/09/23 13:25 Anaerobic Culture - Preliminary Cerebral Spinal Fluid 05/09/23 13:25 Gram Stain - Preliminary Aspirate Body Fluid Culture - Preliminary 05/08/23 15:03 Blood Culture - Preliminary Blood 05/08/23 15:08 Blood Culture - Preliminary Blood Assessment and Plan Assessment: Narcotics dependence noted concerns of him to about drug overdose problem issues, we'll consider psychiatric Bilateral pleural effusion likely related to congestive heart failure Acute on chronic diastolic heart failure Back pain acute on chronic, patient is being evaluated for epidural by spine surgery status post biopsy cultures have been so far negative Hypertension hypertensive cardiovascular disease with labile blood pressure at home Acute on chronic exacerbation of congestive heart failure Coronary artery disease with history of stent placement Peripheral vascular disease with history of lower extremity intervention Dyslipidemia Hypertension hypertensive perivascular disease Type 2 diabetes mellitus History of smoking and nicotine use Plan: Psych consult Continue pain medications with [place], with breakthrough pain with morphine, agree with evaluation with epidural Continue bronchodilator with DuoNeb 4 times a day and when necessary as well as steroids up or down to IV every 12 40 mg Will obtain a chest x-ray as patient may need some diuresis Blood pressure control with Norvasc atenolol hydralazine Continue gentle diuresis Monitor renal functions closely Continue antihypertensive agent and anti-lipid agent as noted above along with statins Continue oral hypoglycemic agent as well as shorten Insulin Cardiovascular services following follow up on echocardiogram Orthopedic service including spine surgery have evaluated the patient awaiting further recommendation thought processes Time with Patient: Greater than 30
--- NOTE | 2023-05-13 00:20 | P.PN ---
Subjective Progress Note Date: 05/11/23 Principal diagnosis: Abnormal MRI and question of discitis/osteomyelitis Patient is a 67-year-old female with a past medical history significant for coronary artery disease COPD DVT fibromyalgia hypertension hyperlipidemia osteoarthritis patient presenting to the hospital with concern for elevated blood pressure shortness of breath and palpitation, possibly related to worsening of her lower back pain patient did have MRI of the lumbosacral spine with concern for possible osteomyelitis involving the L4-L5. Patient is status post CT-guided aspirate of the suspected area on 05/09/2023 On today's evaluation that is 05/11/2023, the patient remains to be afebrile, th e patient is breathing comfortably on room air and denies any shortness of breath, the patient denies any chest pain or cough, patient denies nausea/vomiting or diarrhea and no abdominal pain, the patient still complaining of pain to the lower back area but denies any worsening Patient did have a sed rate of 36 and the CRP 0.8, no lab draw today Objective - Vital Signs Vital signs: Vital Signs Temp 97.7 F 05/11/23 07:59 Pulse 60 05/11/23 08:06 Resp 12 05/11/23 07:59 BP 168/81 05/11/23 07:59 Pulse Ox 97 05/11/23 07:59 FiO2 Intake & Output 05/10/23 05/11/23 05/11/23 18:59 06:59 18:59 Intake Total 416 240 Balance 416 240 Weight 70.8 kg 70.7 kg Intake: Intake, IV Titration 0 Amount Sodium Chloride 0.9% 1, 0 000 ml @ 20 mls/hr IV . Q24H [facility] Rx#:[id number] Oral 416 240 Other: Voiding Method Toilet # Voids 2 - Exam GENERAL DESCRIPTION: An elderly female lying in bed in no distress RESPIRATORY SYSTEM: Unlabored breathing , clear to auscultation anteriorly HEART: S1 S2 regular rate and rhythm , ABDOMEN: Soft , no tenderness EXTREMITIES: No edema feet - Labs CBC & Chem 7: 05/07/23 05:27 05/08/23 13:31 Labs: Abnormal Lab Results - Last 24 Hours (Table) 05/10/23 05/10/23 05/10/23 Range/Units 12:19 17:29 20:20 POC Glucose (mg/dL) 293 H 193 H 168 H (70-110) mg/dL 05/11/23 Range/Units 06:25 POC Glucose (mg/dL) 218 H (70-110) mg/dL Microbiology - Last 24 Hours (Table) 05/09/23 13:25 Gram Stain - Preliminary Aspirate Body Fluid Culture - Preliminary 05/08/23 15:03 Blood Culture - Preliminary Blood 05/08/23 15:08 Blood Culture - Preliminary Blood Assessment and Plan (1) Osteomyelitis Current Visit: Yes Status: Acute Code(s): M86.9 - OSTEOMYELITIS, UNSPECIFIED SNOMED Code(s): 68531769 Plan: 1patient presented to hospital with elevated blood pressure shortness of breath possibly related to her worsening back pain in this patient with abnormality seen on the MRI of the lumbosacral spine concerning for possible discitis and osteomyelitis, patient however did not have any fever during this hospital stay and did have a normal white count her white count slightly up today could be related to the steroid that was started on 05/06/2023, case has been discussed with orthopedics and are not planning for any surgery we will need to confirm the diagnosis and will ask IR for CT-guided aspiration of the area for microbiological diagnosis 2-blood cultures currently pending, CRP normal sed rate of 36 3-patient is status post CT-guided aspirate of the suspected area by IR and cultures are currently pending 4-clinical suspicion is low for osteomyelitis/discitis , we will monitor closely off systemic antibiotic therapy at this point Dictation was produced using [employer] dictation software. please excuse any grammatical, word or spelling errors. Time with Patient: Less than 30
--- NOTE | 2023-05-13 00:22 | P.PN ---
Subjective Progress Note Date: 05/12/23 Principal diagnosis: Abnormal MRI and question of discitis/osteomyelitis Patient is a 67-year-old female with a past medical history significant for coronary artery disease COPD DVT fibromyalgia hypertension hyperlipidemia osteoarthritis patient presenting to the hospital with concern for elevated blood pressure shortness of breath and palpitation, possibly related to worsening of her lower back pain patient did have MRI of the lumbosacral spine with concern for possible osteomyelitis involving the L4-L5. Patient is status post CT-guided aspirate of the suspected area on 05/09/2023 On today's evaluation that is 05/12/2023, the patient continues to be afebrile, the patient is breathing comfortably on room air and denies chest pain or cough, patient denies nausea/vomiting or diarrhea and no abdominal pain, the patient denies any worsening pain to the lower back area Patient did have a sed rate of 36 and the CRP 0.8, no lab draw today , cultures so far negative Objective - Vital Signs Vital signs: Vital Signs Temp 97.7 F 05/12/23 08:09 Pulse 65 05/12/23 08:09 Resp 16 05/12/23 08:09 BP 171/70 05/12/23 09:02 Pulse Ox 97 05/12/23 08:09 FiO2 Intake & Output 05/11/23 05/12/23 05/12/23 18:59 06:59 18:59 Intake Total 358 Balance 358 Weight 70.8 kg Intake: Oral 358 Other: Voiding Method Toilet # Voids 2 - Exam GENERAL DESCRIPTION: An elderly female lying in bed in no distress RESPIRATORY SYSTEM: Unlabored breathing , clear to auscultation anteriorly HEART: S1 S2 regular rate and rhythm , ABDOMEN: Soft , no tenderness EXTREMITIES: No edema feet - Labs CBC & Chem 7: 05/07/23 05:27 05/08/23 13:31 Labs: Abnormal Lab Results - Last 24 Hours (Table) 05/11/23 05/11/23 05/11/23 Range/Units 12:42 17:09 20:26 POC Glucose (mg/dL) 213 H 250 H 209 H (70-110) mg/dL 05/12/23 Range/Units 06:23 POC Glucose (mg/dL) 175 H (70-110) mg/dL Microbiology - Last 24 Hours (Table) 05/08/23 15:03 Blood Culture - Preliminary Blood 05/08/23 15:08 Blood Culture - Preliminary Blood 05/09/23 13:25 Gram Stain - Preliminary Aspirate Body Fluid Culture - Preliminary Assessment and Plan (1) Osteomyelitis Current Visit: Yes Status: Acute Code(s): M86.9 - OSTEOMYELITIS, UNSPECIFIED SNOMED Code(s): 27716456 Plan: 1patient presented to hospital with elevated blood pressure shortness of breath possibly related to her worsening back pain in this patient with abnormality seen on the MRI of the lumbosacral spine concerning for possible discitis and osteomyelitis, patient however did not have any fever during this hospital stay and did have a normal white count her white count slightly up today could be related to the steroid that was started on 05/06/2023, case has been discussed with orthopedics and are not planning for any surgery we will need to confirm the diagnosis and will ask IR for CT-guided aspiration of the area for microbiological diagnosis 2-blood cultures currently pending, CRP normal sed rate of 36 3-patient is status post CT-guided aspirate of the suspected area by IR and cultures are so far negative 4-clinical suspicion is low for osteomyelitis/discitis and with negative cultures no need for systemic antibiotic therapy Dictation was produced using [employer] dictation software. please excuse any grammatical, word or spelling errors. Time with Patient: Less than 30
[2023-05-13] MEDS: SODIUM CHLORIDE 0.9% 1,000 ML IV SCH (02:36)
[2023-05-13] MEDS: MORPHINE SULFATE 4 MG/ML SYRINGE IV PRN ×2 (04:38→20:53)
[2023-05-13 04:45] LABS: Anisocytosis Slight; Basophils % (A) 0 %; Eosinophils % (A) 0 %; HCT 38.7 % (34.0-46.0); HGB 12.9 gm/dL (11.4-16.0); Lymphocytes # (A) 0.5 k/uL (1.0-4.8); Lymphocytes % (A) 4 %; MCH 28.9 pg (25.0-35.0); MCHC 33.2 g/dL (31.0-37.0); Mean Platelet Volume 7.3; Monocytes # (A) 0.5 k/uL (0-1.0); Monocytes % (A) 3 %; Neutrophils # (A) 12.7 k/uL (1.3-7.7); Neutrophils % (A) 92 %; Platelet Count 302 k/uL (150-450); RBC 4.45 m/uL (3.80-5.40); RDW 17.7 % (11.5-15.5); WBC 13.8 k/uL (3.8-10.6)
[2023-05-13 04:46] LABS: ALT 21 U/L (4-34); AST 21 U/L (14-36); African American GFR (CKD) 54 (>60 ml/min/1.73 sqM); Albumin 3.5 g/dL (3.5-5.0); Albumin/Globulin Ratio 1.3; Alkaline Phosphatase 77 U/L (38-126); Anion Gap 9 mmol/L; Blood Urea Nitrogen 54 mg/dL (7-17); C Reactive Protein <0.5 mg/dL (<1.0); Carbon Dioxide 23 mmol/L (22-30); Chloride 104 mmol/L (98-107); Globulin 2.7 g/dL; Glucose 255 mg/dL (74-99); Non-African American GFR(CKD) 47 (>60 ml/min/1.73 sqM); Potassium 5.3 mmol/L (3.5-5.1); Sodium 136 mmol/L (137-145); Total Bilirubin 0.4 mg/dL (0.2-1.3); Total Protein 6.2 g/dL (6.3-8.2)
[2023-05-13] MEDS: INSULIN ASPART (NovoLOG) 100 UNIT/ML VIAL SQ SCH ×4 (06:54→20:38)
[2023-05-13 06:55] LABS: Glucose,Whole Blood 148 mg/dL (70-110)
[2023-05-13] MEDS: IPRATROPIUM-ALBUTEROL 3 ML NEB INHALATION PRN ×2 (07:24→20:26)
[2023-05-13] MEDS: atenoloL 50 MG TAB PO SCH (09:16)
[2023-05-13] MEDS: ASPIRIN 81 MG PO SCH (09:16)
[2023-05-13] MEDS: HYDROcodone/APAP 7.5-325MG 1 EACH TAB PO SCH ×2 (09:17→20:01)
[2023-05-13] MEDS: MULTIVITAMINS, THERA 1 EACH TAB PO SCH (09:17)
[2023-05-13] MEDS: clonazePAM 1 MG TAB PO SCH ×3 (09:17→20:46)
[2023-05-13] MEDS: GABAPENTIN 300 MG CAP PO SCH ×3 (09:17→20:46)
[2023-05-13] MEDS: amLODIPine 5 MG TAB PO SCH (09:18)
[2023-05-13] MEDS: SERTRALINE 100 MG TAB PO SCH (09:18)
[2023-05-13] MEDS: DAPAGLIFLOZIN PROPANEDIOL 5 MG TABLET PO SCH (09:18)
[2023-05-13] MEDS: POTASSIUM CHLORIDE ER 20 MEQ TAB.ER PO SCH (09:18)
[2023-05-13] MEDS: methylPREDNISolone SOD SUCCI 40 MG/ML 1 ML VIAL IV SCH (09:18)
[2023-05-13] MEDS: PANTOPRAZOLE 40 MG/10 ML VIAL IV SCH (09:18)
--- NOTE | 2023-05-13 09:32 | P.PN ---
Subjective Progress Note Date: 05/13/23 This is a 67-year-old female who is being followed by orthopedics for her lower back. Patient is awaiting biopsy results for the lumbar spine. Patient is seen and evaluated at bedside today and states that her pain is well controlled. Patient denies any new complaints today. Objective - Vital Signs Vital signs: Vital Signs Temp 98.0 F 05/13/23 01:08 EST Pulse 52 L 05/13/23 07:35 Resp 18 05/13/23 01:08 EST BP 147/71 05/13/23 01:08 EST Pulse Ox 96 05/13/23 01:08 EST FiO2 Intake & Output 05/12/23 05/13/23 05/13/23 19:59 06:59 18:59 Intake Total Balance Weight Intake: Oral Other: Voiding Method # Voids - Exam On exam patient is sitting up comfortably in bed in no acute distress. Patient is alert and oriented 3. Bilateral lower extremities are warm and well perfused. Calves are soft and nontender to palpation. Neurovascular status and circulatory status are intact. - Labs CBC & Chem 7: 05/13/23 04:05 05/13/23 04:05 Labs: Abnormal Lab Results - Last 24 Hours (Table) 05/12/23 05/12/23 05/12/23 Range/Units 12:09 17:12 21:08 WBC (3.8-10.6) k/uL RDW (11.5-15.5) % Neutrophils # (1.3-7.7) k/uL Lymphocytes # (1.0-4.8) k/uL Sodium (137-145) mmol/L Potassium (3.5-5.1) mmol/L BUN (7-17) mg/dL Creatinine (0.52-1.04) mg/dL Glucose (74-99) mg/dL POC Glucose (mg/dL) 361 H 116 H 181 H (70-110) mg/dL Total Protein (6.3-8.2) g/dL 05/13/23 05/13/23 05/13/23 Range/Units 04:05 04:05 06:53 WBC 13.8 H (3.8-10.6) k/uL RDW 17.7 H (11.5-15.5) % Neutrophils # 12.7 H (1.3-7.7) k/uL Lymphocytes # 0.5 L (1.0-4.8) k/uL Sodium 136 L (137-145) mmol/L Potassium 5.3 H (3.5-5.1) mmol/L BUN 54 H (7-17) mg/dL Creatinine 1.19 H (0.52-1.04) mg/dL Glucose 255 H (74-99) mg/dL POC Glucose (mg/dL) 148 H (70-110) mg/dL Total Protein 6.2 L (6.3-8.2) g/dL Microbiology - Last 24 Hours (Table) 05/09/23 13:25 Gram Stain - Preliminary Aspirate Body Fluid Culture - Preliminary 05/09/23 13:25 Anaerobic Culture - Preliminary Cerebral Spinal Fluid Assessment and Plan (1) Acute exacerbation of chronic low back pain Current Visit: Yes Status: Acute Code(s): M54.50 - LOW BACK PAIN, UNSPECIFIED; G89.29 - OTHER CHRONIC PAIN SNOMED Code(s): 884357981 Plan: Patient is awaiting biopsy results. There is no surgical intervention planned. Continue pain control. Patient may be discharged from an orthopedic standpoint once cleared medically. Her biopsy cultures were negative thus far for discitis. She has chronic back pain and has had exacerbation. I think that she is a candidate for continued conservative treatment. She has not had active dedicated conservative care for her spine and could do well with anti-inflammatory medications and the possibility of physical therapy and consider the possibility of injections in the future. These controlled done as outpatient. If her cultures are finalized and negative, then I think from a orthopedic spine standpoint is okay for her to discharge home and follow-up outpatient.
[2023-05-13 12:13] LABS: Glucose,Whole Blood 211 mg/dL (70-110)
--- NOTE | 2023-05-13 14:38 | P.PN ---
Subjective Progress Note Date: 05/13/23 Principal diagnosis: Abnormal MRI and question of discitis/osteomyelitis Patient is a 67-year-old female with a past medical history significant for coronary artery disease COPD DVT fibromyalgia hypertension hyperlipidemia osteoarthritis patient presenting to the hospital with concern for elevated blood pressure shortness of breath and palpitation, possibly related to worsening of her lower back pain patient did have MRI of the lumbosacral spine with concern for possible osteomyelitis involving the L4-L5. Patient is status post CT-guided aspirate of the suspected area on 05/09/2023 On today's evaluation that is 05/13/2023, the patient denies any fever or any ch ills, the patient is breathing comfortably on room air and no need for supplemental oxygen, the patient denies any chest pain and no cough or sputum production, patient denies Abdominal pain and no nausea/vomiting or diarrhea , the patient still complaining of pain to the lower back area but no worsening Patient did have a sed rate of 36 and the CRP 0.8, white count is 13.8, creatinine is 1.19, cultures negative so far Objective - Vital Signs Vital signs: Vital Signs Temp 97.6 F 05/13/23 07:00 Pulse 52 L 05/13/23 07:35 Resp 16 05/13/23 07:00 BP 159/74 05/13/23 07:00 Pulse Ox 98 05/13/23 07:00 FiO2 Intake & Output 05/12/23 05/13/23 05/13/23 19:59 06:59 18:59 Intake Total 360 Balance 360 Weight Intake: Oral 360 Other: Voiding Method # Voids - Exam GENERAL DESCRIPTION: An elderly female lying in bed in no distress RESPIRATORY SYSTEM: Unlabored breathing , clear to auscultation anteriorly HEART: S1 S2 regular rate and rhythm , ABDOMEN: Soft , no tenderness EXTREMITIES: No edema feet - Labs CBC & Chem 7: 05/13/23 04:05 05/13/23 04:05 Labs: Abnormal Lab Results - Last 24 Hours (Table) 05/12/23 05/12/23 05/13/23 Range/Units 17:12 21:08 04:05 WBC 13.8 H (3.8-10.6) k/uL RDW 17.7 H (11.5-15.5) % Neutrophils # 12.7 H (1.3-7.7) k/uL Lymphocytes # 0.5 L (1.0-4.8) k/uL Sodium (137-145) mmol/L Potassium (3.5-5.1) mmol/L BUN (7-17) mg/dL Creatinine (0.52-1.04) mg/dL Glucose (74-99) mg/dL POC Glucose (mg/dL) 116 H 181 H (70-110) mg/dL Total Protein (6.3-8.2) g/dL 05/13/23 05/13/23 05/13/23 Range/Units 04:05 06:53 12:12 WBC (3.8-10.6) k/uL RDW (11.5-15.5) % Neutrophils # (1.3-7.7) k/uL Lymphocytes # (1.0-4.8) k/uL Sodium 136 L (137-145) mmol/L Potassium 5.3 H (3.5-5.1) mmol/L BUN 54 H (7-17) mg/dL Creatinine 1.19 H (0.52-1.04) mg/dL Glucose 255 H (74-99) mg/dL POC Glucose (mg/dL) 148 H 211 H (70-110) mg/dL Total Protein 6.2 L (6.3-8.2) g/dL Microbiology - Last 24 Hours (Table) 05/09/23 13:25 Gram Stain - Preliminary Aspirate Body Fluid Culture - Preliminary 05/09/23 13:25 Anaerobic Culture - Preliminary Cerebral Spinal Fluid Assessment and Plan (1) Osteomyelitis Current Visit: Yes Status: Acute Code(s): M86.9 - OSTEOMYELITIS, UNSPECIFIED SNOMED Code(s): 37207383 Plan: 1patient presented to hospital with elevated blood pressure shortness of breath possibly related to her worsening back pain in this patient with abnormality seen on the MRI of the lumbosacral spine concerning for possible discitis and osteomyelitis, patient however did not have any fever during this hospital stay and did have a normal white count her white count slightly up today could be related to the steroid that was started on 05/06/2023, case has been discussed with orthopedics and are not planning for any surgery we will need to confirm the diagnosis and will ask IR for CT-guided aspiration of the area for microbiological diagnosis 2-blood cultures currently pending, CRP normal sed rate of 36 3-patient is status post CT-guided aspirate of the suspected area by IR and cultures are so far negative 4-no need for systemic antibiotic therapy with the negative cultures and no clinical suspicious for osteomyelitis/discitis Dictation was produced using [employer] dictation software. please excuse any grammatical, word or spelling errors. Time with Patient: Less than 30
[2023-05-13 17:23] LABS: Glucose,Whole Blood 220 mg/dL (70-110)
[2023-05-13 20:32] LABS: Glucose,Whole Blood 102 mg/dL (70-110)
[2023-05-13] MEDS: ATORVASTATIN 80 MG TAB PO SCH (20:46)
--- NOTE | 2023-05-13 22:42 | P.CN ---
Psychiatric Consult - . Consult date: 05/13/23 Consult:: History of present illness: The patient is a 67-year-old female with a past medical history of hypertension, congestive heart failure, abnormal kidney function, and anxiety. She presented to the emergency department for further assessment and evaluation of congestive heart failure and abnormal lab results. The psychiatric team was consulted to assess the patient's risk of "overdose" based on her daughter's concern that her mother has been using narcotics about involvement with narcotics of the patient in addition potential overdose. The patient's current medications include Klonopin 1 milligram three times daily, Flexeril 10 milligrams twice daily, hydrocodone 7.5 milligrams twice daily, and Zoloft 100 milligrams daily. The patient was seen in her room on the medical floor, where she expressed frustration and unhappiness about undergoing the evaluation, as she believed there was no reason for her to speak with a "psychiatrist." She was not fully cooperative with the assessment and made it clear to the nursing staff that she did not agree to the consultation. The patient added that she only takes medications prescribed by her doctors and explained that she understood the reason her daughter requested this evaluation was because she revoked her daughter's power of [employer] attorney I took her off of POA The patient continued to emphasize that she only takes medications with valid prescriptions and does not use any illegal substances. She mentioned taking Klonopin for anxiety for over 30 years, as it had been prescribed by her primary care physician since her brother's murder. She takes Klonopin once or twice a day as needed for severe anxiety and [place] as needed for severe pain. She stated that she doesn't take [place] unless she experiences severe pain and would never take both medications together. The patient also mentioned that her PCP prescribed Zoloft and Klonopin to manage her anxiety symptoms. As the assessment continued, the patient became more irritable and uncooperative, refusing to complete the evaluation. She began to threaten legal action against "someone". Despite attempts to explain that the consultation was at the request of her primary treating physician and that there were concerns about the risk of combining benzodiazepines and narcotics, she remained uncooperative and declined any further conversation. Past psychiatric history: The assessment was unable to be completed due to the patient's refusal and lack of cooperation. Substance use history: The assessment was unable to be completed due to the patient's refusal and lack of cooperation. Family psychiatric history: The assessment was unable to be completed due to the patient's refusal and lack of cooperation. Social/developmental history: The assessment was unable to be completed due to the patient's refusal and lack of cooperation. Mental Status Examination: Appearance: Appears stated age, adequately groomed, average body built, and no specific features. Gait/ posture: unable to assess Attitude and Behavior: not Engaged, not cooperative. Motor Activity: Normal psychomotor activity. Speech: Normal rate, rhythm, articulation, and prosody. None pressured. Mood: " frustrated Affect: Constricted Thought form: Goal directed, linear, and relevant, not incoherent and no clang association. Thought content: Logical, non-delusional, no report of suicidal / homicidal thoughts, intentions, or plans. Perception: No report of any auditory/ visual hallucinations. Attention: No impairment. Orientation: Oriented to time, place, person, and situation. Insight & Judgment: Fair Impulse control: Fair Assessment and Diagnosis: History of anxiety disorder. Recommendation: Disposition/Follow-up: Is psychiatric hospitalization indicated? NO Addressed and ensured patient's safety; patient does not meet the criteria for psychiatric hospitalization. Currently, there is no need for further follow-up by the psychiatric team. Medication management: Continue home psychiatric medications, It recommended to refer the patient to outpatient pain specialist and psychiatrist for further assessment of her chronic pain and psychiatric symptoms and better management of medications. Brief supportive psychotherapy and psychoeducation were provided to the patient, but the patient was not cooperative. Discussed the treatment plan with the requesting physician/service. Thank you for permitting me to assist in this patient's treatment. Please call the psychiatry department if you have any questions or need further help with this case. 05/13/23 22:37
[2023-05-14] MEDS: SODIUM CHLORIDE 0.9% 1,000 ML IV SCH ×2 (01:22→22:37)
[2023-05-14] MEDS: MORPHINE SULFATE 4 MG/ML SYRINGE IV PRN ×4 (01:31→23:23)
[2023-05-14 05:31] LABS: Glucose,Whole Blood 105 mg/dL (70-110)
[2023-05-14] MEDS: INSULIN ASPART (NovoLOG) 100 UNIT/ML VIAL SQ SCH ×4 (06:04→22:37)
[2023-05-14] MEDS: IPRATROPIUM-ALBUTEROL 3 ML NEB INHALATION PRN ×3 (07:40→20:46)
[2023-05-14] MEDS: POTASSIUM CHLORIDE ER 20 MEQ TAB.ER PO SCH (08:18)
[2023-05-14] MEDS: MULTIVITAMINS, THERA 1 EACH TAB PO SCH (08:18)
[2023-05-14] MEDS: atenoloL 50 MG TAB PO SCH (08:18)
[2023-05-14] MEDS: SERTRALINE 100 MG TAB PO SCH (08:18)
[2023-05-14] MEDS: amLODIPine 5 MG TAB PO SCH (08:18)
[2023-05-14] MEDS: clonazePAM 1 MG TAB PO SCH ×3 (08:18→22:01)
[2023-05-14] MEDS: ASPIRIN 81 MG PO SCH (08:18)
[2023-05-14] MEDS: DAPAGLIFLOZIN PROPANEDIOL 5 MG TABLET PO SCH (08:18)
[2023-05-14] MEDS: HYDROcodone/APAP 7.5-325MG 1 EACH TAB PO SCH ×2 (08:18→20:09)
[2023-05-14] MEDS: GABAPENTIN 300 MG CAP PO SCH ×3 (08:19→22:01)
[2023-05-14] MEDS: PANTOPRAZOLE 40 MG/10 ML VIAL IV SCH (08:19)
[2023-05-14] MEDS ORDERED: methylPREDNISolone SOD SUCCI 40 MG/ML 1 ML VIAL IV SCH (09:00)
--- NOTE | 2023-05-14 12:04 | P.PN ---
Subjective Progress Note Date: 05/14/23 Principal diagnosis: Abnormal MRI and question of discitis/osteomyelitis Patient is a 67-year-old female with a past medical history significant for coronary artery disease COPD DVT fibromyalgia hypertension hyperlipidemia osteoarthritis patient presenting to the hospital with concern for elevated blood pressure shortness of breath and palpitation, possibly related to worsening of her lower back pain patient did have MRI of the lumbosacral spine with concern for possible osteomyelitis involving the L4-L5. Patient is status post CT-guided aspirate of the suspected area on 05/09/2023 On today's evaluation that is 05/14/2023, the patient remains to be afebrile, th e patient is breathing comfortably on room air , the patient denies any chest pain or cough and no sputum production, patient denies nausea/vomiting or diarrhea , no abdominal pain, the patient pain to the lower back area has decreased in intensity Patient did have a sed rate of 36 and the CRP 0.8, white count is 13.8, creatinine is 1.19, cultures negative so far Objective - Vital Signs Vital signs: Vital Signs Temp 98.1 F 05/14/23 08:15 Pulse 48 L 05/14/23 08:15 Resp 16 05/14/23 08:15 BP 159/79 05/14/23 08:15 Pulse Ox 98 05/14/23 08:15 FiO2 Intake & Output 05/13/23 05/14/23 05/14/23 18:59 06:59 18:59 Intake Total 360 Balance 360 Intake: Oral 360 Other: # Voids 2 1 - Exam GENERAL DESCRIPTION: An elderly female lying in bed in no distress RESPIRATORY SYSTEM: Unlabored breathing , clear to auscultation anteriorly HEART: S1 S2 regular rate and rhythm , ABDOMEN: Soft , no tenderness EXTREMITIES: No edema feet - Labs CBC & Chem 7: 05/13/23 04:05 05/13/23 04:05 Labs: Abnormal Lab Results - Last 24 Hours (Table) 05/13/23 05/13/23 Range/Units 12:12 17:21 POC Glucose (mg/dL) 211 H 220 H (70-110) mg/dL Microbiology - Last 24 Hours (Table) 05/08/23 15:03 Blood Culture - Final Blood 05/08/23 15:08 Blood Culture - Final Blood 05/09/23 13:25 Gram Stain - Preliminary Aspirate Body Fluid Culture - Preliminary Assessment and Plan (1) Osteomyelitis Current Visit: Yes Status: Acute Code(s): M86.9 - OSTEOMYELITIS, UNSPECIFIED SNOMED Code(s): 64955741 Plan: 1patient presented to hospital with elevated blood pressure shortness of breath possibly related to her worsening back pain in this patient with abnormality seen on the MRI of the lumbosacral spine concerning for possible discitis and osteomyelitis, patient however did not have any fever during this hospital stay and did have a normal white count her white count slightly up today could be related to the steroid that was started on 05/06/2023, case has been discussed with orthopedics and are not planning for any surgery we will need to confirm the diagnosis and will ask IR for CT-guided aspiration of the area for microbiological diagnosis 2-blood cultures currently pending, CRP normal sed rate of 36 3-patient is status post CT-guided aspirate of the suspected area by IR and cultures are so far negative 4-Pt seems to be doing well off antibiotics, not recommending any antibiotics on discharge Dictation was produced using [employer] dictation software. please excuse any grammatical, word or spelling errors. Time with Patient: Less than 30
--- NOTE | 2023-05-14 12:23 | P.PN ---
Subjective Progress Note Date: 05/13/23 Principal diagnosis: Back pain acute on chronic Hypertension hypertensive cardiovascular disease with labile blood pressure at home Acute on chronic exacerbation of congestive heart failure Chronic diastolic heart failure Coronary artery disease with history of stent placement Peripheral vascular disease with history of lower extremity intervention Dyslipidemia Hypertension hypertensive perivascular disease Type 2 diabetes mellitus History of smoking and nicotine use 05/13/2023, patient seen eval examined during rounds, still have back pain however breathing appears to have improved, denies any chest pain denies any cough or sputum production did get short of breath activity and exertion, ID services following along with spina orthopedic surgery for back pain, and labs from today reviewed white cell count 13.8 hemoglobin and hematocrit is 12/30 and platelet count of 302,000 and chemistry reviewed sodium 130s a bridge to 5.2 BUN/creatinine 54/1.19 glucose is 255 medications reviewed patient has been [place] 7.5, bronchodilators with DuoNeb, antihypertensive with amlodipine, hydralazine, at all, patient has been on high intensity statins as well, on Klonopin 3 times a day with Flexeril for spasm associated with back pain, also on morphine sulfate for pain, 05/12/2023, patient seen eval examined during rounds labs reviewed medications reviewed, patient continue when necessary pain medications, she had pain is improved but however does intermittently anxious patient has been noted, orthopedic spine surgery has been following, I did receive a call from her adelaida ter expressing concern about involvement with narcotics of the patient in addition potential overdose, we'll consult psych service for concerns of family about potential drug overdose- 05/11/2023, patient seen and evaluated examined during rounds labs reviewed medications reviewed care plan discussed, awaiting biopsy results, so far culture results and reports are negative 05/10/2023, patient seen and evaluated examined the rounds labs reviewed medications reviewed care plan discussed, is status post a lumbar biopsy by IR results pending, denies any pain shortness of breath stable but on exertion she gets short of breath she remains on Lasix along with continuation of home medications 05/09/2023, patient seen eval examined during rounds labs reviewed medications reviewed care plan discussed, is still having issues with the back pain, spine surgery has been seeing the patient awaiting their final recommendation, patient remains on diuresis with Lasix chronic changes are seen on the chest x-ray done earlier today likely COPD 05/08/2023, patient seen eval examined during rounds labs reviewed medications in the care plan discussed patient has a MRI of lumbar spine and right hip, patient has evidence of L4 and L5 compression fracture deformities with a possible element of [place] colitis/discitis lumbar MRI has been ordered orthopedic service and spine surgery has been following 05/07/2023, patient seen eval examined, ongoing shortness of breath is present patient continued severe pain, orthopedic and spine surgery is seeing patient has received a back brace but however pain is still there, patient is being evaluated for epidural injections by spine surgery. CBC done today reviewed WBC count 14.7 hemoglobin and hematocrit 12/40 platelet count 3 81,000 sodium was 144 potassium 4.5 BUN/creatinine is a 55/1.6 LFTs within normal limit. Medications reviewed patient remains on [place] for pain control also on DuoNeb 4 times a day as well as IV steroids, chest x-ray consistent with congestive heart failure and small bilateral pleural effusion cardiovascular services following Lasix is on hold 05/06/2023, patient seen eval examined during rounds labs reviewed medications reviewed care plan discussed, respiratory status stable, on as needed oxygen, most of time she is on oxygen at home at nighttime. Currently her pain in the back and hip is stable, orthopedic service and spine surgery is following, patient has been on pain medicine slightly somnolent but readily arousable patient being continued on her home medicine also on IV steroids 60 mg every 6 we'll start tapering it down repeat labs tomorrow as well 05/05/2023, patient seen eval examined during rounds labs reviewed medications reviewed care plan discussed, patient is 59-year-old female with a past medical history significant for congestive heart failure, coronary artery disease with previous stenting, hypertension, diabetes, hyperlipidemia, peripheral vascular disease with previous lower extremity stenting, chronic back pain, and former nicotine dependence. Patient has progressive shortness of breath yesterday that has since resolved. Her main complaint at the time of examination is back pain and she is requesting to be seen by an orthopedic surgeon. She was given 1 dose of IV Lasix by the emergency room physician. Her creatinine increased from 1.10 to 1.90. Chest x-ray suggestive of interstitial edema bilateral small pleural effusion, prior echocardiogram back in June 2022 ejection fraction is 55% with mild MR and TR with Performing 2017 stent in PDA Objective - Vital Signs Vital signs: Vital Signs Temp 97.6 F 05/13/23 07:00 Pulse 52 L 05/13/23 07:35 Resp 16 05/13/23 07:00 BP 159/74 05/13/23 07:00 Pulse Ox 98 05/13/23 07:00 FiO2 Intake & Output 05/12/23 05/13/23 05/13/23 19:59 06:59 18:59 Intake Total 360 Balance 360 Weight Intake: Oral 360 Other: Voiding Method # Voids - Exam - Constitutional General appearance: Present: average body habitus - EENT Eyes: Present: EOMI, PERRLA Ears: bilateral: normal - Neck Neck: Present: normal ROM Carotids: bilateral: upstroke normal Thyroid: bilateral: normal size - Respiratory Respiratory: bilateral: CTA - Cardiovascular Rhythm: regular Heart sounds: normal: S1, S2 - Gastrointestinal General gastrointestinal: Present: normal bowel sounds, soft - Integumentary Integumentary: Present: normal turgor - Neurologic Neurologic: Present: CNII-XII intact - Musculoskeletal Musculoskeletal: Present: gait normal, generalized weakness, strength equal bilaterally - Psychiatric Psychiatric: Present: A&O x's 3, appropriate affect, intact judgment & insight - Labs CBC & Chem 7: 05/13/23 04:05 05/13/23 04:05 Labs: Abnormal Lab Results - Last 24 Hours (Table) 05/12/23 05/12/23 05/13/23 Range/Units 17:12 21:08 04:05 WBC 13.8 H (3.8-10.6) k/uL RDW 17.7 H (11.5-15.5) % Neutrophils # 12.7 H (1.3-7.7) k/uL Lymphocytes # 0.5 L (1.0-4.8) k/uL Sodium (137-145) mmol/L Potassium (3.5-5.1) mmol/L BUN (7-17) mg/dL Creatinine (0.52-1.04) mg/dL Glucose (74-99) mg/dL POC Glucose (mg/dL) 116 H 181 H (70-110) mg/dL Total Protein (6.3-8.2) g/dL 05/13/23 05/13/23 Range/Units 04:05 06:53 WBC (3.8-10.6) k/uL RDW (11.5-15.5) % Neutrophils # (1.3-7.7) k/uL Lymphocytes # (1.0-4.8) k/uL Sodium 136 L (137-145) mmol/L Potassium 5.3 H (3.5-5.1) mmol/L BUN 54 H (7-17) mg/dL Creatinine 1.19 H (0.52-1.04) mg/dL Glucose 255 H (74-99) mg/dL POC Glucose (mg/dL) 148 H (70-110) mg/dL Total Protein 6.2 L (6.3-8.2) g/dL Microbiology - Last 24 Hours (Table) 05/09/23 13:25 Gram Stain - Preliminary Aspirate Body Fluid Culture - Preliminary 05/09/23 13:25 Anaerobic Culture - Preliminary Cerebral Spinal Fluid Assessment and Plan Assessment: Severe back pain on multiple narcotic agents as well as antispasmodic, orthopedic services spine surgery and ID service has been following Bilateral pleural effusion likely related to congestive heart failure Acute on chronic diastolic heart failure Back pain acute on chronic, patient is being evaluated for epidural by spine surgery status post biopsy cultures have been so far negative Hypertension hypertensive cardiovascular disease with labile blood pressure at home Acute on chronic exacerbation of congestive heart failure Coronary artery disease with history of stent placement Peripheral vascular disease with history of lower extremity intervention Dyslipidemia Hypertension hypertensive perivascular disease Type 2 diabetes mellitus, with uncontrolled hypertension glycemia will DC the Solu-Medrol to draw observe her off of his steroids History of smoking and nicotine use Plan: Psych consult Continue pain medications with [place], with breakthrough pain with morphine, agree with evaluation with epidural Continue bronchodilator with DuoNeb 4 times a day and when necessary as well as steroids up or down to IV every 12 40 mg Will obtain a chest x-ray as patient may need some diuresis Blood pressure control with Norvasc atenolol hydralazine Continue gentle diuresis Monitor renal functions closely Continue antihypertensive agent and anti-lipid agent as noted above along with statins Continue oral hypoglycemic agent as well as shorten Insulin Cardiovascular services following follow up on echocardiogram Orthopedic service including spine surgery have evaluated the patient awaiting further recommendation thought processes Time with Patient: Greater than 30
--- NOTE | 2023-05-14 12:25 | P.PN ---
Subjective Progress Note Date: 05/14/23 Principal diagnosis: Back pain acute on chronic Hypertension hypertensive cardiovascular disease with labile blood pressure at home Acute on chronic exacerbation of congestive heart failure Chronic diastolic heart failure Coronary artery disease with history of stent placement Peripheral vascular disease with history of lower extremity intervention Dyslipidemia Hypertension hypertensive perivascular disease Type 2 diabetes mellitus History of smoking and nicotine use 05/14/2023, patient seen eval reexamined during rounds labs reviewed medications reviewed, patient has refused to see psychiatrist, upset with the daughter, medications unchanged, respiratory status improved now, back pain ongoing chronic will DC the Solu-Medrol monitor patient off of steroids 05/13/2023, patient seen eval examined during rounds, still have back pain however breathing appears to have improved, denies any chest pain denies any cough or sputum production did get short of breath activity and exertion, ID services following along with spina orthopedic surgery for back pain, and labs from today reviewed white cell count 13.8 hemoglobin and hematocrit is 12/30 and platelet count of 302,000 and chemistry reviewed sodium 130s a bridge to 5.2 BUN/creatinine 54/1.19 glucose is 255 medications reviewed patient has been [place] 7.5, bronchodilators with DuoNeb, antihypertensive with amlodipine, hydralazine, at all, patient has been on high intensity statins as well, on Klonopin 3 times a day with Flexeril for spasm associated with back pain, also on morphine sulfate for pain, 05/12/2023, patient seen eval examined during rounds labs reviewed medications reviewed, patient continue when necessary pain medications, she had pain is improved but however does intermittently anxious patient has been noted, orthopedic spine surgery has been following, I did receive a call from her daughter expressing concern about involvement with narcotics of the patient in addition potential overdose, we'll consult psych service for concerns of family about potential drug overdose- 05/11/2023, patient seen and evaluated examined during rounds labs reviewed medications reviewed care plan discussed, awaiting biopsy results, so far culture results and reports are negative 05/10/2023, patient seen and evaluated examined the rounds labs reviewed medications reviewed care plan discussed, is status post a lumbar biopsy by IR results pending, denies any pain shortness of breath stable but on exertion she gets short of breath she remains on Lasix along with continuation of home medications 05/09/2023, patient seen eval examined during rounds labs reviewed medications reviewed care plan discussed, is still having issues with the back pain, spine surgery has been seeing the patient awaiting their final recommendation, patient remains on diuresis with Lasix chronic changes are seen on the chest x-ray done earlier today likely COPD 05/08/2023, patient seen eval examined during rounds labs reviewed medications in the care plan discussed patient has a MRI of lumbar spine and right hip, patient has evidence of L4 and L5 compression fracture deformities with a possible element of [place] colitis/discitis lumbar MRI has been ordered orthopedic service and spine surgery has been following 05/07/2023, patient seen eval examined, ongoing shortness of breath is present patient continued severe pain, orthopedic and spine surgery is seeing patient has received a back brace but however pain is still there, patient is being evaluated for epidural injections by spine surgery. CBC done today reviewed WBC count 14.7 hemoglobin and hematocrit 12/40 platelet count 3 81,000 sodium was 144 potassium 4.5 BUN/creatinine is a 55/1.6 LFTs within normal limit. Medications reviewed patient remains on [place] for pain control also on DuoNeb 4 times a day as well as IV steroids, chest x-ray consistent with congestive heart failure and small bilateral pleural effusion cardiovascular services following Lasix is on hold 05/06/2023, patient seen eval examined during rounds labs reviewed medications reviewed care plan discussed, respiratory status stable, on as needed oxygen, most of time she is on oxygen at home at nighttime. Currently her pain in the back and hip is stable, orthopedic service and spine surgery is following, patient has been on pain medicine slightly somnolent but readily arousable patient being continued on her home medicine also on IV steroids 60 mg every 6 we'll start tapering it down repeat labs tomorrow as well 05/05/2023, patient seen eval examined during rounds labs reviewed medications reviewed care plan discussed, patient is 59-year-old female with a past medical history significant for congestive heart failure, coronary artery disease with p revious stenting, hypertension, diabetes, hyperlipidemia, peripheral vascular disease with previous lower extremity stenting, chronic back pain, and former nicotine dependence. Patient has progressive shortness of breath yesterday that has since resolved. Her main complaint at the time of examination is back pain and she is requesting to be seen by an orthopedic surgeon. She was given 1 dose of IV Lasix by the emergency room physician. Her creatinine increased from 1.10 to 1.90. Chest x-ray suggestive of interstitial edema bilateral small pleural effusion, prior echocardiogram back in June 2022 ejection fraction is 55% with mild MR and TR with Performing 2017 stent in PDA Objective - Vital Signs Vital signs: Vital Signs Temp 98.1 F 05/14/23 08:15 Pulse 68 05/14/23 11:34 Resp 16 05/14/23 08:15 BP 159/79 05/14/23 08:15 Pulse Ox 98 05/14/23 08:15 FiO2 Intake & Output 05/13/23 05/14/23 05/14/23 18:59 06:59 18:59 Intake Total 360 240 Balance 360 240 Intake: Oral 360 240 Other: # Voids 2 1 - Exam - Constitutional General appearance: Present: average body habitus - EENT Eyes: Present: EOMI, PERRLA Ears: bilateral: normal - Neck Neck: Present: normal ROM Carotids: bilateral: upstroke normal Thyroid: bilateral: normal size - Respiratory Respiratory: bilateral: CTA - Cardiovascular Rhythm: regular Heart sounds: normal: S1, S2 - Gastrointestinal General gastrointestinal: Present: normal bowel sounds, soft - Integumentary Integumentary: Present: normal turgor - Neurologic Neurologic: Present: CNII-XII intact - Musculoskeletal Musculoskeletal: Present: gait normal, generalized weakness, strength equal bilaterally - Psychiatric Psychiatric: Present: A&O x's 3, appropriate affect, intact judgment & insight - Labs CBC & Chem 7: 05/13/23 04:05 05/13/23 04:05 Labs: Abnormal Lab Results - Last 24 Hours (Table) 05/13/23 Range/Units 17:21 POC Glucose (mg/dL) 220 H (70-110) mg/dL Microbiology - Last 24 Hours (Table) 05/09/23 13:25 Gram Stain - Final Aspirate Body Fluid Culture - Final 05/09/23 13:25 Anaerobic Culture - Final Cerebral Spinal Fluid 05/08/23 15:03 Blood Culture - Final Blood 05/08/23 15:08 Blood Culture - Final Blood Assessment and Plan Assessment: Severe back pain on multiple narcotic agents as well as antispasmodic, orthopedic services spine surgery and ID service has been following Bilateral pleural effusion likely related to congestive heart failure Acute on chronic diastolic heart failure Back pain acute on chronic, patient is being evaluated for epidural by spine surgery status post biopsy cultures have been so far negative Hypertension hypertensive cardiovascular disease with labile blood pressure at home Acute on chronic exacerbation of congestive heart failure Coronary artery disease with history of stent placement Peripheral vascular disease with history of lower extremity intervention Dyslipidemia Hypertension hypertensive perivascular disease Type 2 diabetes mellitus, with uncontrolled hypertension glycemia will DC the Solu-Medrol to draw observe her off of his steroids History of smoking and nicotine use Plan: Psych consult Continue pain medications with [place], with breakthrough pain with morphine, agree with evaluation with epidural Continue bronchodilator with DuoNeb 4 times a day and when necessary as well as steroids up or down to IV every 12 40 mg Will obtain a chest x-ray as patient may need some diuresis Blood pressure control with Norvasc atenolol hydralazine Continue gentle diuresis Monitor renal functions closely Continue antihypertensive agent and anti-lipid agent as noted above along with statins Continue oral hypoglycemic agent as well as shorten Insulin Cardiovascular services following follow up on echocardiogram Orthopedic service including spine surgery have evaluated the patient awaiting further recommendation thought processes Time with Patient: Greater than 30
[2023-05-14 12:56] LABS: Glucose,Whole Blood 274 mg/dL (70-110)
[2023-05-14] MEDS: NYSTATIN 100,000 UNIT/ML SUSP 500,000 UNIT/5 ML CUP PO SCH ×3 (15:03→22:01)
[2023-05-14 17:24] LABS: Glucose,Whole Blood 193 mg/dL (70-110)
[2023-05-14] MEDS: ATORVASTATIN 80 MG TAB PO SCH (20:09)
[2023-05-14 20:22] LABS: Glucose,Whole Blood 162 mg/dL (70-110)
[2023-05-15] MEDS: CYCLOBENZAPRINE 10 MG TAB PO PRN (06:02)
[2023-05-15 06:31] LABS: Glucose,Whole Blood 111 mg/dL (70-110)
[2023-05-15] MEDS: INSULIN ASPART (NovoLOG) 100 UNIT/ML VIAL SQ SCH ×2 (06:34→14:04)
[2023-05-15] MEDS: PANTOPRAZOLE 40 MG/10 ML VIAL IV SCH (07:37)
[2023-05-15] MEDS: GABAPENTIN 300 MG CAP PO SCH ×2 (07:37→16:55)
[2023-05-15] MEDS: HYDROcodone/APAP 7.5-325MG 1 EACH TAB PO SCH (07:37)
[2023-05-15] MEDS: NYSTATIN 100,000 UNIT/ML SUSP 500,000 UNIT/5 ML CUP PO SCH ×2 (07:37→16:54)
[2023-05-15] MEDS: POTASSIUM CHLORIDE ER 20 MEQ TAB.ER PO SCH (07:37)
[2023-05-15] MEDS: ASPIRIN 81 MG PO SCH (07:38)
[2023-05-15] MEDS: DAPAGLIFLOZIN PROPANEDIOL 5 MG TABLET PO SCH (07:38)
[2023-05-15] MEDS: amLODIPine 5 MG TAB PO SCH (07:38)
[2023-05-15] MEDS: MULTIVITAMINS, THERA 1 EACH TAB PO SCH (07:38)
[2023-05-15] MEDS: clonazePAM 1 MG TAB PO SCH ×2 (07:38→16:54)
[2023-05-15] MEDS: SERTRALINE 100 MG TAB PO SCH (07:38)
[2023-05-15 07:45] VITALS: RESP 12
[2023-05-15] MEDS: hydrALAZINE HCL 50 MG TAB PO PRN (08:18)
[2023-05-15] MEDS: atenoloL 50 MG TAB PO SCH (08:18)
--- NOTE | 2023-05-15 09:57 | P.PAINCN ---
History of Present Illness - Reason for Consult Consult date: 05/15/23 Chronic pain - History of Present Illness Dayana is a 59-year-old female multiple medical problems including fibromyalgia, chronic back pain, congestive heart failure and recent bacteremia. She reports that she has multiple areas of pain and this but she came to the hospital. The patient reports she also has C. diff and reports that she has newly diagnosed pancreatic cancer. The notes in the chart report that they're unsure what the small lesion on the pancreas isn't as unlikely to be a mass or any malignancy. The patient reports pain in the right jaw due to "abscess", pain in the abdomen and chronic back pain. Reports she was suupposed to have back surgery with Dr. Elias on but was cancelled due to bactermia from her port. Today, pain is mostly abdominal because she believes she has cpancreatic cancer. Back pain is stable. she says she came here to the hospital due to abdominal pain that is treated with IV dilauded when she gets this type of pain by Dr. Rose. Past Medical History Past Medical History: Coronary Artery Disease (CAD), COPD, Deep Vein Thrombosis (DVT), Fibromyalgia, GERD/Reflux, Hyperlipidemia, Hypertension, Osteoarthritis (OA), Skin Disorder Additional Past Medical History / Comment(s): DIVERTICULITIS, HX KIDNEY STONE- still has it but it's never moved , Pneumonia, ROSACEA, DVT RLE 2007,gerson cataracts, BILAT ILIAC ARTERIES BLOCKED PER PT, pulmonary fibrosis History of Any Multi-Drug Resistant Organisms: None Reported Past Surgical History: Appendectomy, Bowel Resection, Heart Catheterization With Stent, Hernia Repair, Tubal Ligation Additional Past Surgical History / Comment(s): COLONOSCOPY, PARTIAL LT LOBECTOMY-(pt stated they thought i might of had tb but it was just scar tissue), D & C, 07-17-14 BOWEL RESECTION, HEART CATH W 2 STENTS AT [facility] [place] 11-15-15 , 12-18-17 lap robotic assisted repair of inc hernia Past Anesthesia/Blood Transfusion Reactions: No Reported Reaction Date of Last Stent Placement:: 11-15-15 AT [facility] [place] Smoking Status: Former smoker - Past Family History Mother Family Medical History: Congestive Heart Failure (CHF) Father Family Medical History: Cancer Additional Family Medical History / Comment(s): TYPE OF CANCER NOT KNOWN Medications and Allergies Home Medications Medication Instructions Recorded Confirmed Type clonazePAM [Clonazepam] 1 mg PO TID 02/20/14 05/03/23 History HYDROcodone/APAP 7.5-325MG [[place] 1 tab PO BID 09/14/16 05/03/23 History 7.5-325] Rosuvastatin Calcium [Crestor] 40 mg PO HS 01/10/17 05/03/23 History Aspirin EC [Ecotrin Low Dose] 81 mg PO DAILY 01/27/20 05/03/23 History Sertraline [Zoloft] 100 mg PO DAILY 06/28/22 05/03/23 History amLODIPine [Norvasc] 5 mg PO DAILY 06/28/22 05/03/23 History Albuterol Sulfate [Albuterol 2 puff INHALATION RT-Q6H PRN 10/01/22 05/03/23 History Sulfate Hfa] Acetaminophen Tab [Tylenol] 650 mg PO Q6HR PRN tab 10/05/22 05/03/23 Rx Nitroglycerin Sl Tabs [Nitrostat] 0.4 mg SUBLINGUAL Q5M PRN tab 10/05/22 05/03/23 Rx Pantoprazole [Protonix] 40 mg PO AC-BID 90 Days #180 tab 10/05/22 05/03/23 Rx hydrALAZINE HCL [Apresoline] 100 mg PO BID PRN 10/18/22 05/03/23 History Furosemide [Lasix] 20 mg PO DAILY 90 Days #90 tab 10/24/22 05/03/23 Rx Budesonide/Glycopyr/Formoterol 2 puff INHALATION RT-BID 05/03/23 05/03/23 History [Breztri Aerosphere Inhaler] Dapagliflozin Propanediol [Farxiga] 5 mg PO DAILY 05/03/23 05/03/23 History Gabapentin [Neurontin] 300 mg PO TID 05/03/23 05/03/23 History Ipratropium-Albuterol Nebulize 3 ml INHALATION RT-QID PRN 05/03/23 05/03/23 History [Duoneb 0.5 mg-3 mg/3 ml Soln] Multivitamin [Multivitamins Adult 1 cap PO DAILY 05/03/23 05/03/23 History Gummies] Potassium Chloride ER [K-Dur 20] 20 meq PO DAILY 05/03/23 05/03/23 History atenoloL [Tenormin] 50 mg PO DAILY 05/03/23 05/03/23 History tiZANidine [Zanaflex] 2 mg PO DAILY PRN 05/03/23 05/03/23 History Allergies Allergy/AdvReac Type Severity Reaction Status Date / Time hydrocodone bitartrate AdvReac Nausea & Verified 05/03/23 21:39 [From Vicodin] Vomiting propoxyphene napsylate AdvReac Nausea & Verified 05/03/23 21:39 [From Darvocet-N 100] Vomiting Physical Exam Vitals: Vital Signs Temp Pulse Pulse Resp BP BP Pulse Ox 05/15/23 08:47 164/56 05/15/23 07:24 98.0 F 55 L 12 223/75 98 05/15/23 00:16 98.5 F 65 18 181/78 95 05/14/23 20:57 69 05/14/23 20:47 61 05/14/23 19:39 97.6 F 59 L 18 169/71 95 05/14/23 15:42 97.6 F 61 16 148/75 95 05/14/23 11:34 68 05/14/23 11:22 64 Intake and Output 05/14/23 05/15/23 05/15/23 22:59 06:59 14:59 Other: # Voids 3 4 - Constitutional General appearance: obese - Respiratory Respiratory: bilateral: CTA - Cardiovascular Rhythm: regular Heart sounds: normal: S1, S2 - Gastrointestinal General gastrointestinal: normal bowel sounds, soft Localized gastrointestinal: tender: diffuse - Musculoskeletal lower ext strenght is normal, no weakness. DTR intact, sensation is normal to light touch and pin prick Results CBC & Chem 7: 05/13/23 04:05 05/13/23 04:05 Labs: Abnormal Lab Results - Last 24 Hours (Table) 05/14/23 05/14/23 05/14/23 Range/Units 12:55 17:23 20:21 POC Glucose (mg/dL) 274 H 193 H 162 H (70-110) mg/dL 05/15/23 Range/Units 06:29 POC Glucose (mg/dL) 111 H (70-110) mg/dL Microbiology - Last 24 Hours (Table) 05/09/23 13:25 Gram Stain - Final Aspirate Body Fluid Culture - Final 05/09/23 13:25 Anaerobic Culture - Final Cerebral Spinal Fluid Assessment and Plan Assessment: chronic pain opoid dependence Plan: I recommend she be transitioned to oral pain medications while in the hospital, there is no need for IV pain medications for chronic conditions. I would recommend Hydrocodone 10mg q6h while in the hospital, she reports she has pain meds at home from Dr. Rose. No inpatient injections recommended given inf ection and chronicity. Time with Patient: Greater than 30 PQRS Measure Charge Sheet Measure #130: Documentation of Current Meds in Medical Chart: Patient's medications documented in chart Measure #226: Tobacco Use: Screen & Cessation Intervention: Pt not a tobacco user Measure #408: Opioid Therapy Follow-up Evaluation: Patient had NO f/u eval minimum every 3 months during opioid therapy Measure #317: Preventitive Care & Scrn High Bld Press & F/U: Normal blood pressure, f/u not required Measure #128: Body Mass Index (BMI) Screening & Follow-up: BMI documented ABOVE normal parameters - f/u documented Measure #131: Pain Assessment & Follow-up: Pain positive & plan documented Measure #431: Unhealthy Alcohol Use Preventative Care & Scrn: Patient not identified as an unhealthy alcohol user - Pain Location Right Hip Non-Pharmacological Interventions: Position/Reposition, Reduce Environmental Stimuli Pharmacological Interventions: Discuss Pain Med Options, Scheduled Medication Lower Back Non-Pharmacological Interventions: Position/Reposition, Reduce Environmental Stimuli Pharmacological Interventions: Discuss Pain Med Options, PRN Medication, Scheduled Medication Pain Comment: SEE MAR PQRS Narrative: Smoking Status Former smoker Blood Pressure [Left Arm] 164/56 Blood Pressure [Right Arm] 169/71 Blood Pressure 131/58 Pain Intensity [Lower Back] 0 Pain Intensity [Right Hip] 0 Pain Intensity [None] 0 Pain Intensity 2 Pain Scale Used Numeric (1 - 10) Scale Used Numeric (1 - 10) Home Medications: Ambulatory Orders clonazePAM [Clonazepam] 1 mg PO TID 02/20/14 HYDROcodone/APAP 7.5-325MG [[place] 7.5-325] 1 tab PO BID 09/14/16 Rosuvastatin Calcium [Crestor] 40 mg PO HS 01/10/17 Aspirin EC [Ecotrin Low Dose] 81 mg PO DAILY 01/27/20 Sertraline [Zoloft] 100 mg PO DAILY 06/28/22 amLODIPine [Norvasc] 5 mg PO DAILY 06/28/22 Albuterol Sulfate [Albuterol Sulfate Hfa] 2 puff INHALATION RT-Q6H PRN 10/01/22 Acetaminophen Tab [Tylenol] 650 mg PO Q6HR PRN tab 10/05/22 Nitroglycerin Sl Tabs [Nitrostat] 0.4 mg SUBLINGUAL Q5M PRN tab 10/05/22 Pantoprazole [Protonix] 40 mg PO AC-BID 90 Days #180 tab 10/05/22 hydrALAZINE HCL [Apresoline] 100 mg PO BID PRN 10/18/22 Furosemide [Lasix] 20 mg PO DAILY 90 Days #90 tab 10/24/22 Budesonide/Glycopyr/Formoterol [Breztri Aerosphere Inhaler] 2 puff INHALATION RT-BID 05/03/23 Dapagliflozin Propanediol [Farxiga] 5 mg PO DAILY 05/03/23 Gabapentin [Neurontin] 300 mg PO TID 05/03/23 Ipratropium-Albuterol Nebulize [Duoneb 0.5 mg-3 mg/3 ml Soln] 3 ml INHALATION RT-QID PRN 05/03/23 Multivitamin [Multivitamins Adult Gummies] 1 cap PO DAILY 05/03/23 Potassium Chloride ER [K-Dur 20] 20 meq PO DAILY 05/03/23 atenoloL [Tenormin] 50 mg PO DAILY 05/03/23 tiZANidine [Zanaflex] 2 mg PO DAILY PRN 05/03/23
--- NOTE | 2023-05-15 10:54 | P.PN ---
Progress Note - Text Progress Note Date: 05/15/23 I went to see the patient, she was dressed and going home = NO CONSULT DONE, she is going to follow up with Dr. Elias
[2023-05-15 11:31] LABS: Glucose,Whole Blood 156 mg/dL (70-110)
--- NOTE | 2023-05-15 12:28 | P.PN ---
Subjective Progress Note Date: 05/15/23 Principal diagnosis: Abnormal MRI and question of discitis/osteomyelitis Patient is a 67-year-old female with a past medical history significant for coronary artery disease COPD DVT fibromyalgia hypertension hyperlipidemia osteoarthritis patient presenting to the hospital with concern for elevated blood pressure shortness of breath and palpitation, possibly related to worsening of her lower back pain patient did have MRI of the lumbosacral spine with concern for possible osteomyelitis involving the L4-L5. Patient is status post CT-guided aspirate of the suspected area on 05/09/2023 On today's evaluation that is 05/15/2023, the patient continues to be afebrile, the patient is breathing comfortably on room air and no need for supplemental oxygen, the patient denies any chest pain or cough , patient denies nausea/vomiting or diarrhea , no abdominal pain, the patient pain to the lower back area has decreased in intensity, patient is feeling better and mention she is going home Patient did have a sed rate of 36 and the CRP 0.8, white count is 13.8, creatini ne is 1.19 as of 05/13/2023 no labs are done today, lumbar fluid aspirate cultures negative Objective - Vital Signs Vital signs: Vital Signs Temp 98.0 F 05/15/23 07:24 Pulse 55 L 05/15/23 07:24 Resp 12 05/15/23 07:24 BP 164/56 05/15/23 08:47 Pulse Ox 98 05/15/23 07:24 FiO2 Intake & Output 05/14/23 05/15/23 05/15/23 18:59 06:59 18:59 Intake Total 240 118 Balance 240 118 Intake: Oral 240 118 Other: # Voids 3 4 - Exam GENERAL DESCRIPTION: An elderly female lying in bed in no distress RESPIRATORY SYSTEM: Unlabored breathing , clear to auscultation anteriorly HEART: S1 S2 regular rate and rhythm , ABDOMEN: Soft , no tenderness EXTREMITIES: No edema feet - Labs CBC & Chem 7: 05/13/23 04:05 05/13/23 04:05 Labs: Abnormal Lab Results - Last 24 Hours (Table) 05/14/23 05/14/23 05/14/23 Range/Units 12:55 17:23 20:21 POC Glucose (mg/dL) 274 H 193 H 162 H (70-110) mg/dL 05/15/23 Range/Units 06:29 POC Glucose (mg/dL) 111 H (70-110) mg/dL Microbiology - Last 24 Hours (Table) 05/09/23 13:25 Gram Stain - Final Aspirate Body Fluid Culture - Final 05/09/23 13:25 Anaerobic Culture - Final Cerebral Spinal Fluid Assessment and Plan (1) Osteomyelitis Current Visit: Yes Status: Acute Code(s): M86.9 - OSTEOMYELITIS, UNSPECIFIED SNOMED Code(s): 27488424 Plan: 1patient presented to hospital with elevated blood pressure shortness of breath possibly related to her worsening back pain in this patient with abnormality seen on the MRI of the lumbosacral spine concerning for possible discitis and osteomyelitis, patient however did not have any fever during this hospital stay and did have a normal white count her white count slightly up today could be related to the steroid that was started on 05/06/2023, case has been discussed with orthopedics and are not planning for any surgery we will need to confirm the diagnosis and IR was consulted for CT-guided aspiration of the area for microbiological diagnosis which was done on 05/09/2023 and cultures are so far negative,blood cultures has been negative, patient did have a normal CRP and sed rate of 36 2-patient did not have any fever and normal white count on admission subsequently white count was slightly up likely steroid related patient did have a normal CRP and a sed rate of only 36, keeping in mind all these factors clinically suspicious is low for Osteomyelitis and patient report improvement in her symptoms without any antibiotic therapy, cultures are negative as well this has been explained to the patient again she has been instructed close follow-up with the spine surgery and a possible repeat MRI advised if develops any fever to let me know right away multiple questions and concerns were answered Dictation was produced using [employer] software. please excuse any grammatical, word or spelling errors. Time with Patient: Less than 30
[2023-05-15 14:24] VITALS: BP 179/61; PULSE 58; TEMP 98.7
--- NOTE | 2023-05-15 15:49 | P.DS ---
Providers Date of admission: 05/04/23 13:47 Expected date of discharge: 05/15/23 Attending physician: Gregorio Garber Consults: 05/04/23 20:07 Consult Physician Routine Consulting Provider: Jordy Ye Consult Reason/Comments: rt hip pain Do you want consulting provider notified?: Yes 05/08/23 14:35 Consult Physician Routine Consulting Provider: Justin Allen Consult Reason/Comments: L4-5 Discitis Do you want consulting provider notified?: Yes 05/08/23 19:49 Consult Physician Urgent Consulting Provider: Justin Allen Consult Reason/Comments: osteomyelitis lumbar spine Do you want consulting provider notified?: Yes 05/12/23 23:41 Consult Physician Routine Consulting Provider: Psychiatry - [facility] Consult Reason/Comments: Possible polysubstance abuse Do you want consulting provider notified?: Yes, Notify in am Primary care physician: [facility] Course: 05/15/2023, patient seen eval reexamined, patient is back on [place] 2-3 times a day, not taking morphine anymore however she is extremely upset with her daughter due to interference with her care at this point time she expresses that she will likely get help from the Gallery Director. Hemodynamically she is stable, denies any chest pain able to get up and move around has been on room air mostly, due to severe degree of distress blood pressure went up to 223/75 but not stabilize 164/56 on room air oxygen saturation is 95%, sugar also improved to 156 patient wishes to go home with follow-up primary service Dr. Garber as well as orthopedic and pain service 05/14/2023, patient seen eval reexamined during rounds labs reviewed medications reviewed, patient has refused to see psychiatrist, upset with the daughter, medications unchanged, respiratory status improved now, back pain ongoing chronic will DC the Solu-Medrol monitor patient off of steroids 05/13/2023, patient seen eval examined during rounds, still have back pain however breathing appears to have improved, denies any chest pain denies any cough or sputum production did get short of breath activity and exertion, ID services following along with spina orthopedic surgery for back pain, and labs from today reviewed white cell count 13.8 hemoglobin and hematocrit is 12/30 and platelet count of 302,000 and chemistry reviewed sodium 130s a bridge to 5.2 BUN/creatinine 54/1.19 glucose is 255 medications reviewed patient has been [place] 7.5, bronchodilators with DuoNeb, antihypertensive with amlodipine, hydralazine, at all, patient has been on high intensity statins as well, on Klonopin 3 times a day with Flexeril for spasm associated with back pain, also on morphine sulfate for pain, 05/12/2023, patient seen eval examined during rounds labs reviewed medications reviewed, patient continue when necessary pain medications, she had pain is improved but however does intermittently anxious patient has been noted, orthopedic spine surgery has been following, I did receive a call from her daughter expressing concern about involvement with narcotics of the patient in addition potential overdose, we'll consult psych service for concerns of family about potential drug overdose- 05/11/2023, patient seen and evaluated examined during rounds labs reviewed medications reviewed care plan discussed, awaiting biopsy results, so far culture results and reports are negative 05/10/2023, patient seen and evaluated examined the rounds labs reviewed medications reviewed care plan discussed, is status post a lumbar biopsy by IR results pending, denies any pain shortness of breath stable but on exertion she gets short of breath she remains on Lasix along with continuation of home medications 05/09/2023, patient seen eval examined during rounds labs reviewed medications reviewed care plan discussed, is still having issues with the back pain, spine surgery has been seeing the patient awaiting their final recommendation, patient remains on diuresis with Lasix chronic changes are seen on the chest x-ray done earlier today likely COPD 05/08/2023, patient seen eval examined during rounds labs reviewed medications in the care plan discussed patient has a MRI of lumbar spine and right hip, patient has evidence of L4 and L5 compression fracture deformities with a possible element of [place] colitis/discitis lumbar MRI has been ordered orthopedic service and spine surgery has been following 05/07/2023, patient seen eval examined, ongoing shortness of breath is present patient continued severe pain, orthopedic and spine surgery is seeing patient has received a back brace but however pain is still there, patient is being evaluated for epidural injections by spine surgery. CBC done today reviewed WBC count 14.7 hemoglobin and hematocrit 12/40 platelet count 3 81,000 sodium was 144 potassium 4.5 BUN/creatinine is a 55/1.6 LFTs within normal limit. Medications reviewed patient remains on [place] for pain control also on DuoNeb 4 times a day as well as IV steroids, chest x-ray consistent with congestive heart failure and small bilateral pleural effusion cardiovascular services following Lasix is on hold 05/06/2023, patient seen eval examined during rounds labs reviewed medications reviewed care plan discussed, respiratory status stable, on as needed oxygen, most of time she is on oxygen at home at nighttime. Currently her pain in the back and hip is stable, orthopedic service and spine surgery is following, patient has been on pain medicine slightly somnolent but readily arousable patient being continued on her home medicine also on IV steroids 60 mg every 6 we'll start tapering it down repeat labs tomorrow as well 05/05/2023, patient seen eval examined during rounds labs reviewed medications reviewed care plan discussed, patient is 59-year-old female with a past medical history significant for congestive heart failure, coronary artery disease with previous stenting, hypertension, diabetes, hyperlipidemia, peripheral vascular disease with previous lower extremity stenting, chronic back pain, and former nicotine dependence. Patient has progressive shortness of breath yesterday that has since resolved. Her main complaint at the time of examination is back pain and she is requesting to be seen by an orthopedic surgeon. She was given 1 dose of IV Lasix by the emergency room physician. Her creatinine increased from 1.10 to 1.90. Chest x-ray suggestive of interstitial edema bilateral small pleural effusion, prior echocardiogram back in June 2022 ejection fraction is 55% with mild MR and TR with Performing 2017 stent in PDA Objective Assessment: Back pain acute on chronic Hypertension hypertensive cardiovascular disease with labile blood pressure at home Acute on chronic exacerbation of congestive heart failure Chronic diastolic heart failure Coronary artery disease with history of stent placement Peripheral vascular disease with history of lower extremity intervention Dyslipidemia Hypertension hypertensive perivascular disease Type 2 diabetes mellitus History of smoking and nicotine use Procedures: Echocardiogram ejection fraction 55% on 05/04/2023, lower extremity ultrasound diminished ratio seen proximal arterial stenosis patient to be evaluated by cardiovascular service, Patient Condition at Discharge: Fair Plan - Discharge Summary Discharge Rx Participant: Yes New Discharge Prescriptions: No Action clonazePAM [Clonazepam] 1 mg PO TID HYDROcodone/APAP 7.5-325MG [[place] 7.5-325] 1 tab PO BID Rosuvastatin Calcium [Crestor] 40 mg PO HS Aspirin EC [Ecotrin Low Dose] 81 mg PO DAILY Sertraline [Zoloft] 100 mg PO DAILY Nitroglycerin Sl Tabs [Nitrostat] 0.4 mg SUBLINGUAL Q5M PRN tab PRN Reason: Chest Pain Pantoprazole [Protonix] 40 mg PO AC-BID 90 Days #180 tab hydrALAZINE HCL [Apresoline] 100 mg PO BID PRN PRN Reason: high blood pressure Ipratropium-Albuterol Nebulize [Duoneb 0.5 mg-3 mg/3 ml Soln] 3 ml INHALATION RT-QID PRN PRN Reason: Shortness Of Breath tiZANidine [Zanaflex] 2 mg PO DAILY PRN PRN Reason: Muscle Pain Budesonide/Glycopyr/Formoterol [Breztri Aerosphere Inhaler] 2 puff INHALATION RT-BID Multivitamin [Multivitamins Adult Gummies] 1 cap PO DAILY amLODIPine [Norvasc] 5 mg PO DAILY Albuterol Sulfate [Albuterol Sulfate Hfa] 2 puff INHALATION RT-Q6H PRN PRN Reason: Shortness Of Breath Acetaminophen Tab [Tylenol] 650 mg PO Q6HR PRN tab PRN Reason: Fever And/ Or Pain Furosemide [Lasix] 20 mg PO DAILY 90 Days #90 tab Potassium Chloride ER [K-Dur 20] 20 meq PO DAILY Dapagliflozin Propanediol [Farxiga] 5 mg PO DAILY Gabapentin [Neurontin] 300 mg PO TID atenoloL [Tenormin] 50 mg PO DAILY Discharge Medication List clonazePAM [Clonazepam] 1 mg PO TID 02/20/14 [History] HYDROcodone/APAP 7.5-325MG [[place] 7.5-325] 1 tab PO BID 09/14/16 [History] Rosuvastatin Calcium [Crestor] 40 mg PO HS 01/10/17 [History] Aspirin EC [Ecotrin Low Dose] 81 mg PO DAILY 01/27/20 [History] Sertraline [Zoloft] 100 mg PO DAILY 06/28/22 [History] amLODIPine [Norvasc] 5 mg PO DAILY 06/28/22 [History] Albuterol Sulfate [Albuterol Sulfate Hfa] 2 puff INHALATION RT-Q6H PRN 10/01/22 [History] Acetaminophen Tab [Tylenol] 650 mg PO Q6HR PRN tab 10/05/22 [Rx] Nitroglycerin Sl Tabs [Nitrostat] 0.4 mg SUBLINGUAL Q5M PRN tab 10/05/22 [Rx] Pantoprazole [Protonix] 40 mg PO AC-BID 90 Days #180 tab 10/05/22 [Rx] hydrALAZINE HCL [Apresoline] 100 mg PO BID PRN 10/18/22 [History] Furosemide [Lasix] 20 mg PO DAILY 90 Days #90 tab 10/24/22 [Rx] Budesonide/Glycopyr/Formoterol [Breztri Aerosphere Inhaler] 2 puff INHALATION RT-BID 05/03/23 [History] Dapagliflozin Propanediol [Farxiga] 5 mg PO DAILY 05/03/23 [History] Gabapentin [Neurontin] 300 mg PO TID 05/03/23 [History] Ipratropium-Albuterol Nebulize [Duoneb 0.5 mg-3 mg/3 ml Soln] 3 ml INHALATION RT -QID PRN 05/03/23 [History] Multivitamin [Multivitamins Adult Gummies] 1 cap PO DAILY 05/03/23 [History] Potassium Chloride ER [K-Dur 20] 20 meq PO DAILY 05/03/23 [History] atenoloL [Tenormin] 50 mg PO DAILY 05/03/23 [History] tiZANidine [Zanaflex] 2 mg PO DAILY PRN 05/03/23 [History] Follow up Appointment(s)/Referral(s): Renetta Sosa DO [Doctor of Osteopathic Medicine] - 2 Weeks Gregorio Garber MD [Primary Care Provider] - 1-2 days Emmanuel Best DO [Doctor of Osteopathic Medicine] - 05/23/23 1:30 pm [facility], [NON-STAFF] - 1 Week ([facility] will call you to arrange a visit) Activity/Diet/Wound Care/Special Instructions: 1. Should use LSO brace during activities and prolonged ambulation. 2. Brace does not need LSO brace while in bed or bathing 3. Patient should wear this brace while sitting upright at greater than 45 4. Patient should avoid excessive bending, twisting, lifting activities. 5. No lifting greater than 10 pounds.
== END 2023-05-15 17:00 | disposition home or self-care (01) | DRG 477 ==
LOC: EC 15:47 → 6NMEDSUR 21:25 → OBSVTOIN 05-04 13:47 → 6NMEDSUR 05-04 17:17
PROVIDERS: ADMIT Family Medicine; ATTEND Family Medicine
PROC: 0Q903ZX Drainage of Lumbar Vertebra, Percutaneous Approach, Diagnostic (ICD-10-PCS; principal; 2023-05-09)
DX: M51.16 Intervertebral disc disorders with radiculopathy, lumbar region (principal); I50.33 Acute on chronic diastolic (congestive) heart failure; I13.0 Hypertensive heart and chronic kidney disease with heart failure and stage 1 through stage 4 chronic kidney disease, or unspecified chronic kidney disease; N17.9 Acute kidney failure, unspecified; I31.39 Other pericardial effusion (noninflammatory); J44.1 Chronic obstructive pulmonary disease with (acute) exacerbation; M48.56XA Collapsed vertebra, not elsewhere classified, lumbar region, initial encounter for fracture; F11.20 Opioid dependence, uncomplicated; E11.51 Type 2 diabetes mellitus with diabetic peripheral angiopathy without gangrene; E11.22 Type 2 diabetes mellitus with diabetic chronic kidney disease; N18.9 Chronic kidney disease, unspecified; Z87.891 Personal history of nicotine dependence; E86.0 Dehydration; E78.5 Hyperlipidemia, unspecified; F41.9 Anxiety disorder, unspecified; G89.29 Other chronic pain; I25.10 Atherosclerotic heart disease of native coronary artery without angina pectoris; I77.1 Stricture of artery; M16.11 Unilateral primary osteoarthritis, right hip; Z95.828 Presence of other vascular implants and grafts; Z68.31 Body mass index [BMI] 31.0-31.9, adult; M41.50 Other secondary scoliosis, site unspecified; E66.9 Obesity, unspecified; M43.16 Spondylolisthesis, lumbar region; L71.9 Rosacea, unspecified; M25.78 Osteophyte, vertebrae; M47.26 Other spondylosis with radiculopathy, lumbar region; K21.9 Gastro-esophageal reflux disease without esophagitis; F41.0 Panic disorder [episodic paroxysmal anxiety]; M79.7 Fibromyalgia; M48.061 Spinal stenosis, lumbar region without neurogenic claudication; Z79.82 Long term (current) use of aspirin; Z79.84 Long term (current) use of oral hypoglycemic drugs; Z79.899 Other long term (current) drug therapy; Z82.49 Family history of ischemic heart disease and other diseases of the circulatory system; Z86.718 Personal history of other venous thrombosis and embolism; Z87.442 Personal history of urinary calculi; Z95.5 Presence of coronary angioplasty implant and graft; Z90.2 Acquired absence of lung [part of]; Z87.01 Personal history of pneumonia (recurrent)
CPT/HCPCS: 36415; 71045; 71046; 72100; 72148; 72149; 73502; 77012; 80048; 80053; 83036; 83735; 83880; 84100; 84484; 85025; 85610; 85652; 85730; 86140; 87040; 87070; 87075; 87205; 93005; 93306; 93923; 94640; 94760; 96374; 96375; 96376; 99285

== ENCOUNTER 2023-06-08 20:51 | Emergency (ER) | payer MEDICARE ==
--- NOTE | 2023-06-08 22:50 | ED ---
General Adult HPI <Jd Mireles - Last Filed: 06/08/23 22:50> <Raj Malagon - Last Filed: 06/09/23 06:26> <Silvestre Steele - Last Filed: 06/10/23 20:21> <Emmanuel Foster Lawanda - Last Filed: 06/17/23 08:11> - General Stated complaint: Mental Health Petition Time Seen by Provider: 06/08/23 22:49 - History of Present Illness Initial comments: 67-year-old female here for mental health evaluation. Patient petitioned. Has threatened to shoot her in the back of the head and is homicidal. Also noted to be abusing pain pills to the extent that she is suicidal. Reportedly stated will kill herself if she wants to. (Jd Mireles) Dictation was produced using [employer] dictation software. please excuse any grammatical, word or spelling errors. Chief Complaint: 67-year-old female presents emergency department for psychiatric evaluation History of Present Illness: Patient is 67-year-old female presents emergency department for psychiatric evaluation. Patient states that she is here to be evaluated for psychiatric illness. Patient was initially called the police after having confrontation with her daughter. Daughter made of pending elaborate story palpation suicidal and is going to shoot her and herself. Patient denies such claims. Patient petitioned by daughter. Patient denies any history of psychiatric illness. She has no medical complaints today. The ROS documented in this emergency department record has been reviewed and confirmed by me. Those systems with pertinent positive or negative responses have been documented in the HPI. All other systems are other negative and/or noncontributory. (Raj Malagon) - Related Data Home Medications Medication Instructions Recorded Confirmed clonazePAM [Clonazepam] 1 mg PO TID 02/20/14 06/09/23 HYDROcodone/APAP 7.5-325MG [[place] 1 tab PO BID 09/14/16 06/09/23 7.5-325] Rosuvastatin Calcium [Crestor] 40 mg PO HS 01/10/17 06/09/23 Aspirin EC [Ecotrin Low Dose] 81 mg PO DAILY 01/27/20 06/09/23 Sertraline [Zoloft] 100 mg PO DAILY 06/28/22 06/09/23 amLODIPine [Norvasc] 5 mg PO DAILY 06/28/22 06/09/23 Albuterol Sulfate [Albuterol 2 puff INHALATION RT-Q6H PRN 10/01/22 06/09/23 Sulfate Hfa] hydrALAZINE HCL [Apresoline] 100 mg PO BID PRN 10/18/22 06/09/23 Budesonide/Glycopyr/Formoterol 2 puff INHALATION RT-BID 05/03/23 06/09/23 [Breztri Aerosphere Inhaler] Dapagliflozin Propanediol [Farxiga] 5 mg PO DAILY 05/03/23 06/09/23 Gabapentin [Neurontin] 300 mg PO TID 05/03/23 06/09/23 Ipratropium-Albuterol Nebulize 3 ml INHALATION RT-QID PRN 05/03/23 06/09/23 [Duoneb 0.5 mg-3 mg/3 ml Soln] Multivitamin [Multivitamins Adult 1 cap PO DAILY 05/03/23 06/09/23 Gummies] Potassium Chloride ER [K-Dur 20] 20 meq PO DAILY 05/03/23 06/09/23 atenoloL [Tenormin] 50 mg PO DAILY 05/03/23 06/09/23 tiZANidine [Zanaflex] 2 mg PO DAILY PRN 05/03/23 06/09/23 Nitroglycerin Sl Tabs [Nitrostat] 0.4 mg SL Q5M PRN 06/09/23 06/09/23 Previous Rx's Medication Instructions Recorded Acetaminophen Tab [Tylenol] 650 mg PO Q6HR PRN tab 10/05/22 Pantoprazole [Protonix] 40 mg PO AC-BID 90 Days #180 tab 10/05/22 Furosemide [Lasix] 20 mg PO DAILY 90 Days #90 tab 10/24/22 Allergies Allergy/AdvReac Type Severity Reaction Status Date / Time hydrocodone bitartrate AdvReac Nausea & Verified 06/08/23 22:51 [From Vicodin] Vomiting propoxyphene napsylate AdvReac Nausea & Verified 06/08/23 22:51 [From Darvocet-N 100] Vomiting Review of Systems ROS Other: All systems not noted in ROS Statement are negative. <Jd Mireles - Last Filed: 06/08/23 22:50> ROS Other: All systems not noted in ROS Statement are negative. <Raj Malagon - Last Filed: 06/09/23 06:26> ROS Other: All systems not noted in ROS Statement are negative. <Silvestre Steele - Last Filed: 06/10/23 20:21> ROS Other: All systems not noted in ROS Statement are negative. <Emmanuel Foster - Last Filed: 06/17/23 08:11> ROS Statement: Those systems with pertinent positive or pertinent negative responses have been documented in the HPI. Past Medical History Past Medical History: Coronary Artery Disease (CAD), COPD, Deep Vein Thrombosis (DVT), Fibromyalgia, GERD/Reflux, Hyperlipidemia, Hypertension, Osteoarthritis (OA), Skin Disorder Additional Past Medical History / Comment(s): DIVERTICULITIS, HX KIDNEY STONE- still has it but it's never moved , Pneumonia, ROSACEA, DVT RLE 2007,[facility]erson catara cts, BILAT ILIAC ARTERIES BLOCKED PER PT, pulmonary fibrosis History of Any Multi-Drug Resistant Organisms: None Reported Past Surgical History: Appendectomy, Bowel Resection, Heart Catheterization With Stent, Hernia Repair, Tubal Ligation Additional Past Surgical History / Comment(s): COLONOSCOPY, PARTIAL LT LOBECTOMY-(pt stated they thought i might of had tb but it was just scar tissue), D & C, 07-17-14 BOWEL RESECTION, HEART CATH W 2 STENTS AT [facility] 11-15-15 , 12-18-17 lap robotic assisted repair of inc hernia Past Anesthesia/Blood Transfusion Reactions: No Reported Reaction Date of Last Stent Placement:: 11-15-15 AT [facility] Past Psychological History: Anxiety, Panic Disorder Additional Psychological History / Comment(s): PT IS INDEPENDANT-drives,LIVES WITH SPOUSE and 2 pet cats. has 3 adult children and 10 grandchildren. 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 Smoking Status: Former smoker Past Alcohol Use History: None Reported Additional Past Alcohol Use History / Comment(s): smoked since age 13 1ppd; QUIT 2008 Past Drug Use History: None Reported - Past Family History Mother Family Medical History: Congestive Heart Failure (CHF) Father Family Medical History: Cancer Additional Family Medical History / Comment(s): TYPE OF CANCER NOT KNOWN <Jd Mireles - Last Filed: 06/08/23 22:50> General Exam Limitations: no limitations General appearance: alert, in no apparent distress Neck exam: Present: normal inspection Extremities exam: Present: normal inspection Back exam: Present: normal inspection <Jd Mireles - Last Filed: 06/08/23 22:50> <Raj Malagon - Last Filed: 06/09/23 06:26> - General Exam Comments Initial Comments: PHYSICAL EXAM: General Impression: Alert and oriented x3, not in acute distress HEENT: Normocephalic atraumatic, extra-ocular movements intact, pupils equal and reactive to light bilaterally, mucous membranes moist. Cardiovascular: Heart regular rate and rhythm Chest: Able to complete full sentences, no retractions, no tachypnea Abdomen: abdomen soft, non-tender, non-distended, no organomegaly Musculoskeletal: Pulses present and equal in all extremities, no peripheral edema Motor: no focal deficits noted Neurological: CN II-XII grossly intact, no focal motor or sensory deficits noted Skin: Intact with no visualized rashes Psych: Normal affect and mood (Raj Malagon) Course Vital Signs 06/08/23 06/09/23 06/09/23 22:48 00:47 04:00 Temperature 98.8 F 98.4 F Pulse Rate 81 71 60 Respiratory 18 18 16 Rate Blood Pressure 197/76 175/69 139/89 O2 Sat by Pulse 98 99 94 L Oximetry 06/10/23 06/10/23 06/10/23 04:00 08:45 10:03 Temperature 97.8 F 97.8 F Pulse Rate 61 60 61 Respiratory 18 20 17 Rate Blood Pressure 143/76 155/69 155/69 O2 Sat by Pulse 94 L 96 95 Oximetry 06/10/23 06/10/23 06/10/23 12:20 14:30 17:04 Temperature 97.7 F 98.0 F Pulse Rate 61 63 63 Respiratory 18 17 18 Rate Blood Pressure 143/52 153/70 139/68 O2 Sat by Pulse 95 96 94 L Oximetry 06/10/23 06/10/23 06/10/23 18:30 22:31 23:27 Temperature 97.9 F Pulse Rate 64 62 Respiratory 17 18 Rate Blood Pressure 129/67 146/82 O2 Sat by Pulse 95 98 Oximetry 06/11/23 06/11/23 06/11/23 13:00 19:52 21:15 Temperature Pulse Rate 65 Respiratory 19 17 Rate Blood Pressure 125/55 123/94 O2 Sat by Pulse 97 Oximetry 06/12/23 06/12/23 06/12/23 01:44 06:22 10:32 Temperature 97.5 F L Pulse Rate 58 L 63 60 Respiratory 18 17 18 Rate Blood Pressure 144/57 143/87 O2 Sat by Pulse 98 95 95 Oximetry 06/12/23 13:16 Temperature 98.2 F Pulse Rate 68 Respiratory 18 Rate Blood Pressure 139/71 O2 Sat by Pulse 97 Oximetry Medical Decision Making <Jd Mireles - Last Filed: 06/08/23 22:50> - Lab Data Result diagrams: 06/09/23 03:30 06/09/23 03:30 <Raj Malagon - Last Filed: 06/09/23 06:26> - Lab Data Result diagrams: 06/09/23 03:30 06/09/23 03:30 <Silvestre Steele - Last Filed: 06/10/23 20:21> - Lab Data Result diagrams: 06/09/23 03:30 06/09/23 03:30 <Emmanuel Foster - Last Filed: 06/17/23 08:11> - Medical Decision Making Quicknote portion performed. Signed Jd Mireles PA-C (Jd Mireles) Was pt. sent in by a medical professional or institution ([facility], [facility], urgent care, hospital, or intermediate...) When possible be specific @ -No Did you speak to anyone other than the patient for history (EMS, parent, family, police, friend...)? What history was obtained from this source @ -No Did you review nursing and triage notes (agree or disagree)? Why? @ -I reviewed and agree with nursing and triage notes Were old charts reviewed (outside hosp., previous admission, EMS record, old EKG, old radiological studies, urgent care reports/EKG's, intermediate records)? Report findings @ -No old charts were reviewed Differential Diagnosis (chest pain, altered mental status, abdominal pain women, abdominal pain men, vaginal bleeding, musculoskeletal, weakness, fever, dyspnea, syncope, headache, dizziness, GI bleed, back pain, seizure, CVA, palpatations, mental health)? @ -Differential Mental Health: Depression, anxiety, bipolar, psychosis, schizophrenia, borderline personality, situational depression, adjustment disorder, behavioral disorder, brain tumor, malingering, substance abuse, encephalopathy, medication reaction, dementia, hypothyroidism, degenerative neurologic disorder, lupus.... This is not meant to be all-inclusive list EKG interpreted by me (3pts min.). @ -None done X-rays interpreted by me (1pt min.). @ -None done CT interpreted by me (1pt min.). @ -None done U/S interpreted by me (1pt. min.). @ -None done What testing was considered but not performed or refused? (CT, X-rays, U/S, labs)? Why? @ -None What meds were considered but not given or refused? Why? @ -None Did you discuss the management of the patient with other professionals (professionals i.e. , PA, [facility] [employer], lab, RT, psych nurse, social work professor, claim manager, teacher, gifts officer, disability case manager)? Give summary @ -No Was smoking cessation discussed for >3mins.? @ -No Was critical care preformed (if so, how long)? @ -No Were there social determinants of health that impacted care today? How? (Homelessness, low income, unemployed, alcoholism, drug addiction, transportation, low edu. Level, literacy, decrease access to med. care, nursing home, rehab)? @ -No Was there de-escalation of care discussed even if they declined (Discuss DNR or withdrawal of care, Hospice)? DNR status @ -No What co-morbidities impacted this encounter? (DM, HTN, Smoking, COPD, CAD, Cancer, CVA, ARF, Chemo, Hep., AIDS, mental health diagnosis, sleep apnea, morbid obesity)? @ -None Was patient admitted / discharged? Hospital course, mention meds given and route, prescriptions, significant lab abnormalities, going to OR and other pertinent info. @ -67-year-old female presents for psychiatric evaluation. Patient's story compared to what was seen on addition very greatly. Patient denies such suicidal or homicidal claims. Nonetheless patient will be via by EPS. Patient medically cleared for EPS evaluation. Patient advised by EPS and will be transferred to med psych Undiagnosed new problem with uncertain prognosis? @ -No Drug Therapy requiring intensive monitoring for toxicity (Heparin, Nitro, Insulin, Cardizem)? @ -No Were any procedures done? @ -No Diagnosis/symptom? Acute, or Chronic, or Acute on Chronic? Uncomplicated (without systemic symptoms) or Complicated (systemic symptoms)? @ -Psychiatric evaluation Side effects of treatment? @ -No Exacerbation, Progression, or Severe Exacerbation? @ -No Poses a threat to life or bodily function? How? (Chest pain, [place], MO, pneumonia, PE, COPD, DKA, ARF, appy, cholecystitis, CVA, Diverticulitis, Homicidal, Suicidal, threat to staff... and all critical care pts) @ -yes (Raj Malagon) Patient is a 67-year-old psych cold here in the emergency department. I was notified by EPS the patient will be reevaluated by psychiatry tomorrow and possibly will have a negative cert. Requested I place consult to psychiatrist on-call, which was completed. Possible disposition home tomorrow. (Silvestre Steele) Was pt. sent in by a medical professional or institution (Dr. PA, [facility], urgent care, hospital, or intermediate...) When possible be specific @ -No Did you speak to anyone other than the patient for history (EMS, parent, family, police, friend...)? What history was obtained from this source @ -No Did you review nursing and triage notes (agree or disagree)? Why? @ -I reviewed and agree with nursing and triage notes Were old charts reviewed (outside hosp., previous admission, EMS record, old EKG, old radiological studies, urgent care reports/EKG's, intermediate records)? Report findings @ -No old charts were reviewed Differential Diagnosis (chest pain, altered mental status, abdominal pain women, abdominal pain men, vaginal bleeding, weakness, fever, dyspnea, syncope, headache, dizziness, GI bleed, back pain, seizure, CVA, palpatations, mental health, musculoskeletal)? @ -[Differential Mental Health Depression, anxiety, bipolar, psychosis, schizophrenia, borderline personality, situational depression, adjustment disorder, behavioral disorder, brain tumor, malingering, substance abuse, encephalopathy, medication reaction, dementia, hypothyroidism, degenerative neurologic disorder, lupus.... This is not meant to be all-inclusive list EKG interpreted by me (3pts min.). @ -As above X-rays interpreted by me (1pt min.). @ -None done CT interpreted by me (1pt min.). @ -None done U/S interpreted by me (1pt. min.). @ -None done What testing was considered but not performed or refused? (CT, X-rays, U/S, labs)? Why? @ -None What meds were considered but not given or refused? Why? @ -None Did you discuss the management of the patient with other professionals (professionals i.e. , PA, [employer], lab, RT, psych nurse, social work professor, claim manager, teacher, gifts officer, disability case manager)? Give summary @ -Discussed with EPS, recommending discharge at this time. Was smoking cessation discussed for >3mins.? @ -No Was critical care preformed (if so, how long)? @ -No Were there social determinants of health that impacted care today? How? (Homelessness, low income, unemployed, alcoholism, drug addiction, transportation, low edu. Level, literacy, decrease access to med. care, nursing home, rehab)? @ -No Was there de-escalation of care discussed even if they declined (Discuss DNR or withdrawal of care, Hospice)? DNR status @ -No What co-morbidities impacted this encounter? (DM, HTN, Smoking, COPD, CAD, Cancer, CVA, ARF, Chemo, Hep., AIDS, mental health diagnosis, sleep apnea, morbid obesity)? @ -None Was patient admitted / discharged? Hospital course, mention meds given and route, prescriptions, significant lab abnormalities, going to OR and other pertinent info. @ -[59-year-old female for mental health evaluation. Patient was medically cleared and evaluated by EPS on multiple occasions, felt to be safe for discharge at this time she will be picked up by her sister. Patient has signed a safety plan Undiagnosed new problem with uncertain prognosis? @ -No Drug Therapy requiring intensive monitoring for toxicity (Heparin, Nitro, Insulin, Cardizem)? @ -No Were any procedures done? @ -No Diagnosis/symptom? @ -[Depression Acute, or Chronic, or Acute on Chronic? @acute Uncomplicated (without systemic symptoms) or Complicated (systemic symptoms)? @ -default Side effects of treatment? @ -No Exacerbation, Progression, or Severe Exacerbation? @ -No Poses a threat to life or bodily function? How? (Chest pain, [place], MO, pneumonia, PE, COPD, DKA, ARF, appy, cholecystitis, CVA, Diverticulitis, Homicidal, Suicidal, threat to staff... and all critical care pts) @ -Low risk at this time (Emmanuel Foster) - Lab Data Lab Results 06/09/23 06/09/23 06/09/23 Range/Units 03:00 03:30 03:30 WBC (3.8-10.6) k/uL RBC (3.80-5.40) m/uL Hgb (11.4-16.0) gm/dL Hct (34.0-46.0) % MCV (80.0-100.0) fL MCH (25.0-35.0) pg MCHC (31.0-37.0) g/dL RDW (11.5-15.5) % Plt Count (150-450) k/uL MPV Neutrophils % % Lymphocytes % % Monocytes % % Eosinophils % % Basophils % % Neutrophils # (1.3-7.7) k/uL Lymphocytes # (1.0-4.8) k/uL Monocytes # (0-1.0) k/uL Eosinophils # (0-0.7) k/uL Basophils # (0-0.2) k/uL Anisocytosis Sodium 139 (137-145) mmol/L Potassium 3.8 (3.5-5.1) mmol/L Chloride 109 H (98-107) mmol/L Carbon Dioxide 17 L (22-30) mmol/L Anion Gap 13 mmol/L BUN 26 H (7-17) mg/dL Creatinine 1.52 H (0.52-1.04) mg/dL Est GFR (CKD-EPI)AfAm 40 (>60 ml/min/1.73 sqM) Est GFR (CKD-EPI)NonAf 35 (>60 ml/min/1.73 sqM) Glucose 138 H (74-99) mg/dL Calcium 9.7 (8.4-10.2) mg/dL Total Bilirubin 0.6 (0.2-1.3) mg/dL AST 25 (14-36) U/L ALT 17 (4-34) U/L Alkaline Phosphatase 118 (38-126) U/L Total Protein 7.3 (6.3-8.2) g/dL Albumin 3.9 (3.5-5.0) g/dL TSH 2.290 (0.465-4.680) mIU/L Urine Color Urine Appearance (Clear) Urine pH (5.0-8.0) Ur Specific [place] (1.001-1.035) Urine Protein (Negative) Urine Glucose (UA) (Negative) Urine Ketones (Negative) Urine Blood (Negative) Urine Nitrite (Negative) Urine Bilirubin (Negative) Urine Urobilinogen (<2.0) mg/dL Ur Leukocyte Esterase (Negative) Urine RBC (0-5) /hpf Urine WBC (0-5) /hpf Urine Mucus (None) /hpf Urine Opiates Screen (NotDetected) Ur Oxycodone Screen (NotDetected) Urine Methadone Screen (NotDetected) Ur Propoxyphene Screen (NotDetected) Ur Barbiturates Screen (NotDetected) U Tricyclic Antidepress (NotDetected) Ur Phencyclidine Scrn (NotDetected) Ur Amphetamines Screen (NotDetected) U Methamphetamines Scrn (NotDetected) U Benzodiazepines Scrn (NotDetected) Urine Cocaine Screen (NotDetected) U Marijuana (THC) Screen (NotDetected) SARS-CoV-2 (PCR) Not Detected (Not Detectd) 06/09/23 06/09/23 06/09/23 Range/Units 03:30 03:55 03:55 WBC 10.3 (3.8-10.6) k/uL RBC 4.54 (3.80-5.40) m/uL Hgb 13.3 (11.4-16.0) gm/dL Hct 39.8 (34.0-46.0) % MCV 87.8 (80.0-100.0) fL MCH 29.3 (25.0-35.0) pg MCHC 33.4 (31.0-37.0) g/dL RDW 16.3 H (11.5-15.5) % Plt Count 324 (150-450) k/uL MPV 7.2 Neutrophils % 70 % Lymphocytes % 18 % Monocytes % 7 % Eosinophils % 1 % Basophils % 1 % Neutrophils # 7.2 (1.3-7.7) k/uL Lymphocytes # 1.8 (1.0-4.8) k/uL Monocytes # 0.7 (0-1.0) k/uL Eosinophils # 0.1 (0-0.7) k/uL Basophils # 0.1 (0-0.2) k/uL Anisocytosis Slight Sodium (137-145) mmol/L Potassium (3.5-5.1) mmol/L Chloride (98-107) mmol/L Carbon Dioxide (22-30) mmol/L Anion Gap mmol/L BUN (7-17) mg/dL Creatinine (0.52-1.04) mg/dL Est GFR (CKD-EPI)AfAm (>60 ml/min/1.73 sqM) Est GFR (CKD-EPI)NonAf (>60 ml/min/1.73 sqM) Glucose (74-99) mg/dL Calcium (8.4-10.2) mg/dL Total Bilirubin (0.2-1.3) mg/dL AST (14-36) U/L ALT (4-34) U/L Alkaline Phosphatase (38-126) U/L Total Protein (6.3-8.2) g/dL Albumin (3.5-5.0) g/dL TSH (0.465-4.680) mIU/L Urine Color Yellow Urine Appearance Slightly Cloudy H (Clear) Urine pH 5.0 (5.0-8.0) Ur Specific [place] 1.010 (1.001-1.035) Urine Protein Negative (Negative) Urine Glucose (UA) 3+ (Negative) Urine Ketones Negative (Negative) Urine Blood Negative (Negative) Urine Nitrite Negative (Negative) Urine Bilirubin Negative (Negative) Urine Urobilinogen <2.0 (<2.0) mg/dL Ur Leukocyte Esterase Moderate (Negative) Urine RBC 1 (0-5) /hpf Urine WBC 11 H (0-5) /hpf Urine Mucus Rare H (None) /hpf Urine Opiates Screen Detected H (NotDetected) Ur Oxycodone Screen Not Detected (NotDetected) Urine Methadone Screen Not Detected (NotDetected) Ur Propoxyphene Screen Not Detected (NotDetected) Ur Barbiturates Screen Not Detected (NotDetected) U Tricyclic Antidepress Not Detected (NotDetected) Ur Phencyclidine Scrn Not Detected (NotDetected) Ur Amphetamines Screen Not Detected (NotDetected) U Methamphetamines Scrn Not Detected (NotDetected) U Benzodiazepines Scrn Not Detected (NotDetected) Urine Cocaine Screen Not Detected (NotDetected) U Marijuana (THC) Screen Detected H (NotDetected) SARS-CoV-2 (PCR) (Not Detectd) Disposition <Jd Mireles - Last Filed: 06/08/23 22:50> <Raj Malagon - Last Filed: 06/09/23 06:26> <Silvestre Steele - Last Filed: 06/10/23 20:21> Is patient prescribed a controlled substance at d/c from ED?: No Time of Disposition: 12:17 <Emmanuel Foster - Last Filed: 06/17/23 08:11> Clinical Impression: Depression Disposition: HOME SELF-CARE Condition: Fair Instructions (If sedation given, give patient instructions): Depression (ED) Referrals: Gregorio Garber MD [Primary Care Provider] - 1-2 days
[2023-06-09] MEDS ORDERED: amLODIPine 5 MG TAB PO STA (00:58)
[2023-06-09] MEDS ORDERED: atenoloL 50 MG TAB PO STA (00:58)
[2023-06-09] MEDS ORDERED: clonazePAM 0.5 MG TAB PO STA (01:08)
[2023-06-09] MEDS ORDERED: ATORVASTATIN 40 MG TAB PO STA (01:08)
[2023-06-09] MEDS ORDERED: FUROSEMIDE 20 MG TAB PO STA (01:09)
[2023-06-09] MEDS ORDERED: HYDROcodone/APAP 7.5-325MG 1 EACH TAB PO ONE ×3 (02:41→21:25)
[2023-06-09 04:34] LABS: Anisocytosis Slight; Basophils # (A) 0.1 k/uL (0-0.2); Basophils % (A) 1 %; Eosinophils # (A) 0.1 k/uL (0-0.7); Eosinophils % (A) 1 %; HCT 39.8 % (34.0-46.0); HGB 13.3 gm/dL (11.4-16.0); Lymphocytes # (A) 1.8 k/uL (1.0-4.8); Lymphocytes % (A) 18 %; MCH 29.3 pg (25.0-35.0); MCHC 33.4 g/dL (31.0-37.0); MCV 87.8 fL (80.0-100.0); Mean Platelet Volume 7.2; Monocytes # (A) 0.7 k/uL (0-1.0); Monocytes % (A) 7 %; Neutrophils # (A) 7.2 k/uL (1.3-7.7); Neutrophils % (A) 70 %; Platelet Count 324 k/uL (150-450); RBC 4.54 m/uL (3.80-5.40); RDW 16.3 % (11.5-15.5); WBC 10.3 k/uL (3.8-10.6)
[2023-06-09 04:37] LABS: Mucus,Urine Rare /hpf; RBC,Urine 1 /hpf (0-5); WBC,Urine 11 /hpf (0-5)
[2023-06-09 04:38] LABS: Appearance,Urine Slightly Cloudy (Clear); Bilirubin,Urine Negative (Negative); Blood,Urine Negative (Negative); Color,Urine Yellow; Glucose,Urine (UA) 3+ (Negative); Ketones,Urine Negative (Negative); Protein,Urine Negative (Negative); Urobilinogen,Urine <2.0 mg/dL (<2.0)
[2023-06-09 04:39] LABS: Leukocyte Esterase,Urine Moderate (Negative); Nitrite,Urine Negative (Negative)
[2023-06-09 04:55] LABS: Amphetamine Screen,Urine Not Detected (NotDetected); Barbiturate Screen,Urine Not Detected (NotDetected); Benzodiazepines Screen,Urine Not Detected (NotDetected); Cocaine Screen,Urine Not Detected (NotDetected); Methadone Screen, Urine Not Detected (NotDetected); Opiate Screen,Urine Detected (NotDetected); Oxycodone Screen, Urine Not Detected (NotDetected); Phencyclidine Screen,Urine Not Detected (NotDetected); Tricyclic Antidepressant,Urine Not Detected (NotDetected); Urn Cannabinoid Scrn Detected (NotDetected)
[2023-06-09 05:04] LABS: ALT 17 U/L (4-34); AST 25 U/L (14-36); African American GFR (CKD) 40 (>60 ml/min/1.73 sqM); Albumin 3.9 g/dL (3.5-5.0); Alkaline Phosphatase 118 U/L (38-126); Anion Gap 13 mmol/L; Blood Urea Nitrogen 26 mg/dL (7-17); Calcium 9.7 mg/dL (8.4-10.2); Carbon Dioxide 17 mmol/L (22-30); Chloride 109 mmol/L (98-107); Glucose 138 mg/dL (74-99); Non-African American GFR(CKD) 35 (>60 ml/min/1.73 sqM); Potassium 3.8 mmol/L (3.5-5.1); Sodium 139 mmol/L (137-145); Total Bilirubin 0.6 mg/dL (0.2-1.3); Total Protein 7.3 g/dL (6.3-8.2)
[2023-06-09] MEDS: SERTRALINE 100 MG TAB PO SCH (08:25)
[2023-06-09] MEDS: ACETAMINOPHEN TAB 325 MG TAB PO PRN (08:26)
[2023-06-09] MEDS: clonazePAM 1 MG TAB PO SCH ×3 (08:26→21:32)
[2023-06-09] MEDS: ASPIRIN 81 MG PO SCH (08:26)
[2023-06-09] MEDS: GABAPENTIN 300 MG CAP PO SCH ×3 (08:26→21:34)
[2023-06-09] MEDS: DAPAGLIFLOZIN PROPANEDIOL 5 MG TABLET PO SCH (08:37)
[2023-06-09] MEDS: ATORVASTATIN 40 MG TAB PO SCH (21:32)
[2023-06-10] MEDS: clonazePAM 1 MG TAB PO SCH ×3 (08:46→22:06)
[2023-06-10] MEDS: ASPIRIN 81 MG PO SCH (08:46)
[2023-06-10] MEDS: GABAPENTIN 300 MG CAP PO SCH ×3 (08:46→22:06)
[2023-06-10] MEDS: DAPAGLIFLOZIN PROPANEDIOL 5 MG TABLET PO SCH (08:46)
[2023-06-10] MEDS: amLODIPine 5 MG TAB PO SCH (08:46)
[2023-06-10] MEDS: FUROSEMIDE 20 MG TAB PO SCH (08:46)
[2023-06-10] MEDS: SERTRALINE 100 MG TAB PO SCH (08:46)
[2023-06-10] MEDS: atenoloL 50 MG TAB PO SCH (08:50)
[2023-06-10] MEDS: ATORVASTATIN 40 MG TAB PO SCH (22:05)
[2023-06-10] MEDS ORDERED: HYDROcodone/APAP 7.5-325MG 1 EACH TAB PO ONE (23:45)
[2023-06-11] MEDS: amLODIPine 5 MG TAB PO SCH (09:20)
[2023-06-11] MEDS: FUROSEMIDE 20 MG TAB PO SCH (09:20)
[2023-06-11] MEDS: atenoloL 50 MG TAB PO SCH (09:20)
[2023-06-11] MEDS: ASPIRIN 81 MG PO SCH (09:20)
[2023-06-11] MEDS: clonazePAM 1 MG TAB PO SCH ×3 (09:20→21:12)
[2023-06-11] MEDS: SERTRALINE 100 MG TAB PO SCH (09:20)
[2023-06-11] MEDS: GABAPENTIN 300 MG CAP PO SCH ×3 (09:20→21:12)
[2023-06-11] MEDS: DAPAGLIFLOZIN PROPANEDIOL 5 MG TABLET PO SCH (09:48)
[2023-06-11] MEDS ORDERED: HYDROcodone/APAP 5-325MG 1 EACH TAB PO STA (17:40)
[2023-06-11] MEDS: ATORVASTATIN 40 MG TAB PO SCH (21:12)
[2023-06-12] MEDS: ACETAMINOPHEN TAB 325 MG TAB PO PRN (03:38)
[2023-06-12] MEDS ORDERED: SERTRALINE 100 MG TAB PO SCH (09:00)
[2023-06-12] MEDS ORDERED: clonazePAM 1 MG TAB PO SCH (09:00)
[2023-06-12] MEDS ORDERED: ASPIRIN 81 MG PO SCH (09:00)
[2023-06-12] MEDS ORDERED: FUROSEMIDE 20 MG TAB PO SCH (09:00)
[2023-06-12] MEDS ORDERED: amLODIPine 5 MG TAB PO SCH (09:00)
[2023-06-12] MEDS ORDERED: atenoloL 50 MG TAB PO SCH (09:00)
[2023-06-12] MEDS ORDERED: GABAPENTIN 300 MG CAP PO SCH (09:00)
[2023-06-12] MEDS ORDERED: ACETAMINOPHEN TAB 325 MG TAB PO PRN (09:15)
[2023-06-12] MEDS: GABAPENTIN 300 MG CAP PO SCH (09:42)
[2023-06-12] MEDS: atenoloL 50 MG TAB PO SCH (09:42)
[2023-06-12] MEDS: amLODIPine 5 MG TAB PO SCH (09:42)
[2023-06-12] MEDS: SERTRALINE 100 MG TAB PO SCH (09:42)
[2023-06-12] MEDS: FUROSEMIDE 20 MG TAB PO SCH (09:42)
[2023-06-12] MEDS: ASPIRIN 81 MG PO SCH (09:43)
[2023-06-12] MEDS: clonazePAM 1 MG TAB PO SCH (09:43)
[2023-06-12 10:39] VITALS: RESP 18
[2023-06-12] MEDS: DAPAGLIFLOZIN PROPANEDIOL 5 MG TABLET PO SCH (11:24)
[2023-06-12] MEDS ORDERED: HYDROcodone/APAP 7.5-325MG 1 EACH TAB PO ONE (12:52)
[2023-06-12 13:27] VITALS: BP 139/71; PULSE 68; TEMP 98.2
[2023-06-12] MEDS ORDERED: ATORVASTATIN 40 MG TAB PO SCH (21:00)
== END 2023-06-12 13:37 | disposition home or self-care (01) ==
LOC: EC 20:51
DX: F32.A Depression, unspecified (principal); I10 Essential (primary) hypertension; I25.10 Atherosclerotic heart disease of native coronary artery without angina pectoris; J44.9 Chronic obstructive pulmonary disease, unspecified; E78.5 Hyperlipidemia, unspecified; M19.90 Unspecified osteoarthritis, unspecified site; Z87.891 Personal history of nicotine dependence; Z79.899 Other long term (current) drug therapy; Z88.8 Allergy status to other drugs, medicaments and biological substances; Z20.822 Contact with and (suspected) exposure to COVID-19
CPT/HCPCS: 36415; 80053; 80306; 81001; 82075; 84443; 85025; 87635; 93005; 99285

== ENCOUNTER → 2024-04-14 | Outpatient (CLI) | payer MEDICARE ==
--- NOTE | 2024-04-14 19:41 | MR ---
EXAMINATION TYPE: MR thoracic spine wo con DATE OF EXAM: 04/14/2024 7:10 PM CLINICAL INDICATION: Female, 68 years old with history of S22.059A T6 VERTEB FRACTURE; PHH, T6 verteb ral fracture, mid back pain. COMPARISON: 05/08/2023 TECHNIQUE: Multi planar, multi sequence imaging was performed utilizing: T1-weighted, short-tau inver haydee recovery and T2-weighted of the thoracic spine. IV Contrast: cc (none if empty) FINDINGS: Alignment: Alignment is within normal limits. Vertebral bodies have preserved heights. Spinal cord: Spinal cord is within normal limits for signal. Discs: Intervertebral disc signal is maintained. No evidence of significant spinal canal or neural fo raminal stenosis. There is no evidence of extradural defects or central spinal canal narrowing at any thoracic vertebral body level Osseous structures: T6 vertebral body high inversion recovery signal with compression of the anterior aspect of T2 25-50%. No significant retropulsion. Multilevel degeneration with osteophyte formation and facet joint arthropathy. The heart is mildly enlarged for size. IMPRESSION: T6 compression fracture with up to 25-50% height loss. No significant retropulsion. No significant sp inal canal or neural foraminal stenosis in the visualized spine. [id number] multilevel degeneration changes of the spine. [facility], , 04/14/2024 7:39 PM
== END | disposition home or self-care (01) ==
LOC: RADMRIMAIN 18:06
PROVIDERS: ATTEND Family Medicine
DX: S22.059A Unspecified fracture of T5-T6 vertebra, initial encounter for closed fracture (principal)
CPT/HCPCS: 72146

== ENCOUNTER 2024-05-10 13:19 | Inpatient (IN) | payer MEDICARE ==
--- NOTE | 2024-05-10 13:36 | ED ---
General Adult HPI - General Chief complaint: Chest Pain Stated complaint: Chest pain-sent by PCP Time Seen by Provider: 05/10/24 13:26 Source: patient Mode of arrival: ambulatory Limitations: no limitations - History of Present Illness Initial comments: Dictation was produced using [employer] dictation software. please excuse any grammatical, word or spelling errors. Chief Complaint: 68-year-old female with chest pain History of Present Illness: Patient 68-year-old female presents emergency department chest pain. Patient states she fractured some ribs sometime ago. States that she had an MRI that was performed last year that showed compression fracture of T6. States that she was doing okay after that MRI and shortly after she started to have some sharp chest pain. States that the pain is in her right chest and radiates to her back. No associated nausea or diaphoresis. Patient has multiple comorbidities including coronary artery disease. Patient denies any numbness tingling to her arms or legs. Denies any dizziness. She allegedly has a history of coronary artery disease. The ROS documented in this emergency department record has been reviewed and confirmed by me. Those systems with pertinent positive or negative responses have been documented in the HPI. All other systems are other negative and/or noncontributory. - Related Data Home Medications Medication Instructions Recorded Confirmed clonazePAM [Clonazepam] 1 mg PO BID 02/20/14 05/10/24 Aspirin EC [Ecotrin Low Dose] 81 mg PO HS 01/27/20 05/10/24 Sertraline [Zoloft] 50 mg PO DAILY 06/28/22 05/10/24 Albuterol Sulfate [Albuterol 2 puff INHALATION RT-Q6H PRN 10/01/22 05/10/24 Sulfate Hfa] hydrALAZINE HCL [Apresoline] 100 mg PO HS 10/18/22 05/10/24 Budesonide/Glycopyr/Formoterol 2 puff INHALATION RT-BID 05/03/23 05/10/24 [Breztri Aerosphere Inhaler] Ipratropium-Albuterol Nebulize 3 ml INHALATION RT-BID 05/03/23 05/10/24 [Duoneb 0.5 mg-3 mg/3 ml Soln] Potassium Chloride ER [K-Dur 20] 20 meq PO HS 05/03/23 05/10/24 atenoloL [Tenormin] 50 mg PO HS 05/03/23 05/10/24 Nitroglycerin Sl Tabs [Nitrostat] 0.4 mg SL Q5M PRN 06/09/23 05/10/24 Atorvastatin [Lipitor] 80 mg PO HS 05/10/24 05/10/24 HYDROcodone/APAP 5-325MG [[place] 1 tab PO Q6HR PRN 05/10/24 05/10/24 5-325] Immune Triple Support 1 tab PO HS 05/10/24 05/10/24 Linaclotide [Linzess] 290 mcg PO HS PRN 05/10/24 05/10/24 Magnesium Oxide [Mag-Ox] 400 mg PO HS 05/10/24 05/10/24 amLODIPine [Norvasc] 10 mg PO HS 05/10/24 05/10/24 methocarbamoL [Robaxin-750] 750 mg PO BID PRN 05/10/24 05/10/24 traMADol HCl [Ultram] 50 mg PO BID PRN 05/10/24 05/10/24 Previous Rx's Medication Instructions Recorded Pantoprazole [Protonix] 40 mg PO AC-BID 90 Days #180 tab 10/05/22 Allergies Allergy/AdvReac Type Severity Reaction Status Date / Time hydrocodone bitartrate AdvReac Nausea & Verified 05/10/24 13:24 [From Vicodin] Vomiting propoxyphene napsylate AdvReac Nausea & Verified 05/10/24 13:24 [From Darvocet-N 100] Vomiting Review of Systems ROS Statement: Those systems with pertinent positive or pertinent negative responses have been documented in the HPI. ROS Other: All systems not noted in ROS Statement are negative. Past Medical History Past Medical History: Coronary Artery Disease (CAD), COPD, Deep Vein Thrombosis (DVT), Fibromyalgia, GERD/Reflux, Hyperlipidemia, Hypertension, Osteoarthritis (OA), Skin Disorder Additional Past Medical History / Comment(s): DIVERTICULITIS, HX KIDNEY STONE- still has it but it's never moved , Pneumonia, ROSACEA, DVT RLE 2007,gerson cataracts, BILAT ILIAC ARTERIES BLOCKED PER PT, pulmonary fibrosis History of Any Multi-Drug Resistant Organisms: None Reported Past Surgical History: Appendectomy, Bowel Resection, Heart Catheterization With Stent, Hernia Repair, Tubal Ligation Additional Past Surgical History / Comment(s): COLONOSCOPY, PARTIAL LT LOBECTOMY-(pt stated they thought i might of had tb but it was just scar tissue), D & C, 07-17-14 BOWEL RESECTION, HEART CATH W 2 STENTS AT [facility] [place] 11-15-15 , 12-18-17 lap robotic assisted repair of inc hernia Past Anesthesia/Blood Transfusion Reactions: No Reported Reaction Date of Last Stent Placement:: 11-15-15 AT [facility] [place] Past Psychological History: Anxiety, Panic Disorder Smoking Status: Former smoker Past Alcohol Use History: None Reported Past Drug Use History: None Reported - Past Family History Mother Family Medical History: Congestive Heart Failure (CHF) Father Family Medical History: Cancer Additional Family Medical History / Comment(s): TYPE OF CANCER NOT KNOWN General Exam - General Exam Comments Initial Comments: PHYSICAL EXAM: General Impression: Alert and oriented x3, in distress secondary to pain HEENT: Normocephalic atraumatic, extra-ocular movements intact, pupils equal and reactive to light bilaterally, mucous membranes moist. Cardiovascular: Heart regular rate and rhythm Chest: Able to complete full sentences, no retractions, no tachypnea, some palpatory tenderness with palpation to the chest Abdomen: abdomen soft, non-tender, non-distended, no organomegaly Musculoskeletal: Pulses present and equal in all extremities, no peripheral edema Motor: no focal deficits noted Neurological: CN II-XII grossly intact, no focal motor or sensory deficits noted Skin: Intact with no visualized rashes Psych: Normal affect and mood Limitations: no limitations Course Vital Signs 05/10/24 05/10/24 05/10/24 13:20 14:03 15:21 Temperature 97.8 F Pulse Rate 60 56 L 64 Respiratory 18 19 19 Rate Blood Pressure 131/76 170/100 199/100 O2 Sat by Pulse 97 97 97 Oximetry 05/10/24 05/10/24 05/10/24 16:15 17:05 17:57 Temperature 98.5 F 98.3 F 98.2 F Pulse Rate 60 60 63 Respiratory 22 24 18 Rate Blood Pressure 166/72 154/69 169/74 O2 Sat by Pulse 96 98 96 Oximetry 05/10/24 05/10/24 18:23 18:33 Temperature Pulse Rate 60 60 Respiratory Rate Blood Pressure O2 Sat by Pulse Oximetry EKG Findings - EKG Comments: EKG Findings:: My EKG interpretation: Ventricular rate 56, sinus bradycardia,. 140, QRS 94, QTc 4 7. No HI prolongation, no QTC prolongation, no ST or T-wave changes noted. Overall, this EKG is unremarkable Medical Decision Making - Medical Decision Making Was pt. sent in by a medical professional or institution (, [facility], BEHAVIORAL HEALTH TECHNICIAN, urgent care, hospital, or long-term...) When possible be specific @ -[No] Did you speak to anyone other than the patient for history (EMS, parent, family, police, friend...)? What history was obtained from this source @ -[No] Did you review nursing and triage notes (agree or disagree)? Why? @ -[I reviewed and agree with nursing and triage notes] Were old charts reviewed (outside hosp., previous admission, EMS record, old EKG, old radiological studies, urgent care reports/EKG's, long-term records)? Report findings @ -[No old charts were reviewed] Differential Diagnosis (chest pain, altered mental status, abdominal pain women, abdominal pain men, vaginal bleeding, musculoskeletal, weakness, fever, dyspnea, syncope, headache, dizziness, GI bleed, back pain, seizure, CVA, palpatations, mental health)? @ -Differential Chest Pain: Stable Angina, Unstable Angina, STEMI, NSTEMI Aortic Dissection, Pneumothorax, Musculoskeletal, Esophageal Spasm GERD, Cholecystitis, Pancreatitis, Zoster, this is not meant to be an all-inclusive list. EKG interpreted by me (3pts min.). @ -See above X-rays interpreted by me (1pt min.). @ -Chest x-ray shows no acute processes CT interpreted by me (1pt min.). @ -CT angiography does not show any aortic dissection U/S interpreted by me (1pt. min.). @ -[None done] What testing was considered but not performed or refused? (CT, X-rays, U/S, labs)? Why? @ -[None] What meds were considered but not given or refused? Why? @ -[None] Was smoking cessation discussed for >3mins.? @ -[No] Were there social determinants of health that impacted care today? How? (Homelessness, low income, unemployed, alcoholism, drug addiction, transportation, low edu. Level, literacy, decrease access to med. care, detention, rehab)? @ -[No] Was there de-escalation of care discussed even if they declined (Discuss DNR or withdrawal of care, Hospice)? DNR status @ -[No] What co-morbidities impacted this encounter? (DM, HTN, Smoking, COPD, CAD, Cancer, CVA, ARF, Chemo, Hep., AIDS, mental health diagnosis, sleep apnea, morbid obesity)? @ -Coronary artery disease Was patient admitted / discharged? Hospital course, mention meds given and route, prescriptions, significant lab abnormalities, going to OR and other pertinent info. @ -68-year-old female presents emergency department chest pain that radiates to the back. Clinical presentation was initially suspicious for acute aortic dissection especially given elevated blood pressure. Vital signs upon arrival are within acceptable limits. Laboratory evaluation obtained. Labs are within acceptable limits. CT of the chest did not show any dissection. Patient care signed out to Dr. Mcghee at 3:30 PM. Chart reviewed at a later date showing that patient had been admitted for further care. - Lab Data Result diagrams: 05/10/24 13:52 05/10/24 14:25 Lab Results 05/10/24 05/10/24 05/10/24 Range/Units 13:52 13:52 14:25 WBC 7.6 (3.8-10.6) k/uL RBC 4.44 (3.80-5.40) m/uL Hgb 13.4 (11.4-16.0) gm/dL Hct 40.9 (34.0-46.0) % MCV 92.1 (80.0-100.0) fL MCH 30.1 (25.0-35.0) pg MCHC 32.6 (31.0-37.0) g/dL RDW 14.6 (11.5-15.5) % Plt Count 355 (150-450) k/uL MPV 8.4 Neutrophils % 83 % Lymphocytes % 7 % Monocytes % 5 % Eosinophils % 3 % Basophils % 0 % Neutrophils # 6.3 (1.3-7.7) k/uL Lymphocytes # 0.6 L (1.0-4.8) k/uL Monocytes # 0.4 (0-1.0) k/uL Eosinophils # 0.2 (0-0.7) k/uL Basophils # 0.0 (0-0.2) k/uL PT 10.3 (10.0-12.5) sec INR 0.9 (<1.2) APTT 28.0 (22.0-30.0) sec Sodium (137-145) mmol/L Potassium (3.5-5.1) mmol/L Chloride (98-107) mmol/L Carbon Dioxide (22-30) mmol/L Anion Gap mmol/L BUN (7-17) mg/dL Creatinine (0.52-1.04) mg/dL Est GFR (CKD-EPI)AfAm (>60 ml/min/1.73 sqM) Est GFR (CKD-EPI)NonAf (>60 ml/min/1.73 sqM) Glucose (74-99) mg/dL Plasma Lactic Acid Florian 1.6 (0.7-2.0) mmol/L Calcium (8.4-10.2) mg/dL Magnesium (1.6-2.3) mg/dL Total Bilirubin (0.2-1.3) mg/dL AST (14-36) U/L ALT (4-34) U/L Alkaline Phosphatase (38-126) U/L Troponin I (0.000-0.034) ng/mL Total Protein (6.3-8.2) g/dL Albumin (3.5-5.0) g/dL Lipase (23-300) U/L 05/10/24 05/10/24 Range/Units 14:25 14:25 WBC (3.8-10.6) k/uL RBC (3.80-5.40) m/uL Hgb (11.4-16.0) gm/dL Hct (34.0-46.0) % MCV (80.0-100.0) fL MCH (25.0-35.0) pg MCHC (31.0-37.0) g/dL RDW (11.5-15.5) % Plt Count (150-450) k/uL MPV Neutrophils % % Lymphocytes % % Monocytes % % Eosinophils % % Basophils % % Neutrophils # (1.3-7.7) k/uL Lymphocytes # (1.0-4.8) k/uL Monocytes # (0-1.0) k/uL Eosinophils # (0-0.7) k/uL Basophils # (0-0.2) k/uL PT (10.0-12.5) sec INR (<1.2) APTT (22.0-30.0) sec Sodium 138 (137-145) mmol/L Potassium 4.0 (3.5-5.1) mmol/L Chloride 108 H (98-107) mmol/L Carbon Dioxide 23 (22-30) mmol/L Anion Gap 7 mmol/L BUN 18 H (7-17) mg/dL Creatinine 1.19 H (0.52-1.04) mg/dL Est GFR (CKD-EPI)AfAm 54 (>60 ml/min/1.73 sqM) Est GFR (CKD-EPI)NonAf 47 (>60 ml/min/1.73 sqM) Glucose 89 (74-99) mg/dL Plasma Lactic Acid Florian (0.7-2.0) mmol/L Calcium 8.6 (8.4-10.2) mg/dL Magnesium 1.8 (1.6-2.3) mg/dL Total Bilirubin 0.7 (0.2-1.3) mg/dL AST 21 (14-36) U/L ALT 16 (4-34) U/L Alkaline Phosphatase 130 H (38-126) U/L Troponin I <0.012 (0.000-0.034) ng/mL Total Protein 7.0 (6.3-8.2) g/dL Albumin 3.7 (3.5-5.0) g/dL Lipase 49 (23-300) U/L Disposition Clinical Impression: Chest pain Disposition: ADMITTED IP TO THIS HOSP
[2024-05-10] MEDS: HYDROmorphone 1 MG/ML 1 ML SYRINGE IVP STA ×2 (13:54→15:34)
[2024-05-10] MEDS: SODIUM CHLORIDE 0.9% 1,000 ML IV STA (13:54)
[2024-05-10 14:03] LABS: Basophils % (A) 0 %; Eosinophils # (A) 0.2 k/uL (0-0.7); Eosinophils % (A) 3 %; HCT 40.9 % (34.0-46.0); HGB 13.4 gm/dL (11.4-16.0); Lymphocytes # (A) 0.6 k/uL (1.0-4.8); Lymphocytes % (A) 7 %; MCH 30.1 pg (25.0-35.0); MCHC 32.6 g/dL (31.0-37.0); MCV 92.1 fL (80.0-100.0); Mean Platelet Volume 8.4; Monocytes # (A) 0.4 k/uL (0-1.0); Monocytes % (A) 5 %; Neutrophils # (A) 6.3 k/uL (1.3-7.7); Neutrophils % (A) 83 %; Platelet Count 355 k/uL (150-450); RBC 4.44 m/uL (3.80-5.40); RDW 14.6 % (11.5-15.5); WBC 7.6 k/uL (3.8-10.6)
[2024-05-10 14:26] LABS: INR 0.9 (<1.2); Prothrombin Time 10.3 sec (10.0-12.5)
[2024-05-10 14:51] LABS: ALT 16 U/L (4-34); AST 21 U/L (14-36); African American GFR (CKD) 54 (>60 ml/min/1.73 sqM); Albumin 3.7 g/dL (3.5-5.0); Alkaline Phosphatase 130 U/L (38-126); Anion Gap 7 mmol/L; Blood Urea Nitrogen 18 mg/dL (7-17); Calcium 8.6 mg/dL (8.4-10.2); Carbon Dioxide 23 mmol/L (22-30); Chloride 108 mmol/L (98-107); Glucose 89 mg/dL (74-99); Lipase 49 U/L (23-300); Magnesium 1.8 mg/dL (1.6-2.3); Non-African American GFR(CKD) 47 (>60 ml/min/1.73 sqM); Sodium 138 mmol/L (137-145); Total Bilirubin 0.7 mg/dL (0.2-1.3)
--- NOTE | 2024-05-10 15:19 | XR ---
EXAMINATION TYPE: XR chest 1V portable DATE OF EXAM: 05/10/2024 2:38 PM COMPARISON: Chest radiographs from 05/09/2023 CLINICAL INDICATION: Female, 68 years old with history of chest pain; [facility] TECHNIQUE: XR chest 1V portable Frontal view of the chest. FINDINGS: Lungs/Pleura: Prominent interstitial lung markings are seen scattered throughout the lungs. No eviden ce of focal consolidation, pneumothorax or pleural effusion. Pulmonary vascularity: Unremarkable. Heart/mediastinum: Cardiomediastinal silhouette is unremarkable. Musculoskeletal: No acute osseous pathology. Other findings: None IMPRESSION: Chronic changes without acute pulmonary process. No significant change from prior. [facility], , 05/10/2024 3:16 PM
--- NOTE | 2024-05-10 15:54 | CT ---
EXAMINATION TYPE: CT chest without contrast. CT angio chest DATE OF EXAM: 05/10/2024 3:30 PM COMPARISON: CT 02/20/2023. CLINICAL INDICATION: Female, 68 years old with history of suspect aortic dissection; chest pain that radiates in to the back for the past week that gets worse with deep breath. Pt states the pain is get ting worse. TECHNIQUE/CONTRAST: CTA scan of the thorax is performed with IV Contrast, patient injected with 100ml mL of Isovue 370, M IP images are created and reviewed these are created on a separate workstation.. CT DLP: 791 mGycm, Automated exposure control for dose reduction was used. FINDINGS: Pulmonary Artery: There is no evidence for a filling defect within the pulmonary vasculature to sugge st acute pulmonary embolism. The pulmonary artery is of normal size. Lungs/Pleura: Coarsened interstitial lung markings with interlobular septal thickening. No evidence o f focal consolidation, pleural effusion or pneumothorax. Airway: Large airways are patent. Heart: The heart is enlarged for size. Atherosclerosis of the arterial vasculature. Vasculature: No evidence for intramural hematoma on noncontrast imaging. No evidence of intimal flap to suggest dissection. No aneurysm identified. Scattered atherosclerotic disease. There is no evidenc e for a filling defect within the pulmonary vasculature to suggest acute pulmonary embolism. The pul monary artery is of normal size. Mediastinum: No gross evidence of adenopathy. Prominent lymphadenopathy likely secondary to evidence of congestive heart failure. Right subcarinal lymph node measuring up to 13 mm which is similar prior given differences in technique. Musculoskeletal: Moderate degenerative disc disease changes are present throughout the thoracolumbar spine. Soft Tissues/lymph nodes: Unremarkable. Lower neck: No significant findings. Upper Abdomen: No significant findings. IMPRESSION: 1. No evidence for aortic dissection, pulmonary embolus or aneurysm. 2. Cardiomegaly with pulmonary vascular congestion correlate with serum BNP. 3. Moderate to severe coronary artery atherosclerosis. 4. Mediastinal prominent lymph nodes likely secondary to evidence of congestive heart failure. [facility], Workstation: [id number], 05/10/2024 3:52 PM
[2024-05-10] MEDS: clonazePAM 0.5 MG TAB PO STA (16:17)
[2024-05-10] MEDS ORDERED: NITROGLYCERIN SL TABS 0.4 MG TAB SUBLINGUAL PRN (16:48)
[2024-05-10] MEDS ORDERED: ALBUTEROL NEBULIZED 2.5 MG/3 ML INHALATION PRN (16:49)
[2024-05-10] MEDS: PANTOPRAZOLE 40 MG TABLET PO SCH (17:52)
[2024-05-10] MEDS: IPRATROPIUM 0.5 MG/2.5 ML NEBU INHALATION SCH (18:23)
[2024-05-10] MEDS: SYMBICORT 160-4.5 MCG INHALER INHALATION SCH (18:23)
[2024-05-10] MEDS ORDERED: NON FORMULARY DRUG (Budesonide/Glycopyr/Formoterol [Breztri Aerosphere Inhaler] 10.7 GM Gm INHALATION SCH (20:00)
[2024-05-10] MEDS ORDERED: hydrALAZINE HCL 20 MG/ML 1 ML VIAL IV PRN (20:44)
[2024-05-10] MEDS ORDERED: HYDROcodone/APAP 7.5-325MG 1 EACH TAB PO SCH (21:00)
[2024-05-10] MEDS: hydrALAZINE HCL 50 MG TAB PO SCH (21:16)
[2024-05-10] MEDS: ATORVASTATIN 80 MG TAB PO SCH (21:16)
[2024-05-10] MEDS: GABAPENTIN 300 MG CAP PO SCH (21:16)
[2024-05-10] MEDS: clonazePAM 1 MG TAB PO SCH (21:16)
[2024-05-10] MEDS: HYDROcodone/APAP 5-325MG 1 EACH TAB PO PRN (22:07)
[2024-05-11] MEDS: IPRATROPIUM-ALBUTEROL 3 ML NEB INHALATION PRN (01:04)
[2024-05-11] MEDS: HYDROmorphone 0.5 MG/0.5 ML SYRINGE IVP PRN (06:01)
[2024-05-11] MEDS: HYDROcodone/APAP 5-325MG 1 EACH TAB PO PRN (09:03)
[2024-05-11] MEDS: ASPIRIN 325 MG TAB PO SCH (09:04)
[2024-05-11] MEDS: DAPAGLIFLOZIN PROPANEDIOL 5 MG TABLET PO SCH (09:04)
[2024-05-11] MEDS: FUROSEMIDE 20 MG TAB PO SCH (09:04)
[2024-05-11] MEDS: amLODIPine 5 MG TAB PO SCH (09:04)
[2024-05-11] MEDS: atenoloL 50 MG TAB PO SCH (09:04)
[2024-05-11] MEDS: SERTRALINE 100 MG TAB PO SCH (09:16)
[2024-05-11 09:38] LABS: Chol/HDL Ratio 3.94 Ratio; LDL Cholesterol,Calculated 130.6 mg/dL (0.0-131.0)
[2024-05-11] MEDS ORDERED: Linaclotide [Linzess] 290 MCG Capsule PO PRN (11:24)
[2024-05-11] MEDS ORDERED: methocarbamoL 750 MG TAB PO PRN (11:24)
--- NOTE | 2024-05-11 13:25 | P.CRDCN ---
History of Present Illness Consult date: 05/11/24 Chief complaint: Back Pain History of present illness: This is a 68-year-old female patient with a past medical history significant for CAD with prior vascularization as well as PAD with prior vascularization as well as hypertension and dyslipidemia and chronic pain presented to the hospital complaining of upper back pain and chest discomfort. She is known to have chronic back pain. She was noted to have T6 fracture on the MRI was performed in the past. She presented back to the hospital complaining of upper back discomfort appears to be somewhat reproducible on examination and she states also that she did have some discomfort in the chest radiating from her back. No upper extremities discomfort. No shortness of breath or dizziness or lightheadedness or any feeling of heart racing or fluttering or any presyncope or syncope or edema in the lower extremities. The patient is known to have chronic pain. She underwent in the office recently a stress test and echocardiogram the details are unavailable at this point. During this admission she underwent a workup including an EKG showing sinus mechanism with no significant ST or T wave abnormalities. She underwent also further cardiac evaluation including cardiac enzymes came in to be unremarkable with CT scan of the chest did not show any acute abnormalities as well. Currently she is chest pain-free but she continues to have upper back discomfort appears to be somewhat reproducible on examination. The physical examination is remarkable for regular rhythm with a soft systolic murmur at the right upper sternal border with clear breathing sounds bilaterally and no edema was noted in the lower extremities Assessment Upper back discomfort and chest discomfort History of CAD and PAD Multiple comorbid conditions including hypertension and dyslipidemia Chronic pain Plan Acute coronary event was ruled out Before work through any further cardiac testing I will obtain a copy of the last testing from the office Follow-up with the patient The patient also to be seen by orthopedic service Past Medical History Past Medical History: Coronary Artery Disease (CAD), COPD, Deep Vein Thrombosis (DVT), Fibromyalgia, GERD/Reflux, Hyperlipidemia, Hypertension, Osteoarthritis (OA), Skin Disorder Additional Past Medical History / Comment(s): DIVERTICULITIS, HX KIDNEY STONE- still has it but it's never moved , Pneumonia, ROSACEA, DVT RLE 2007,gerson cataracts, BILAT ILIAC ARTERIES BLOCKED PER PT, pulmonary fibrosis History of Any Multi-Drug Resistant Organisms: None Reported Past Surgical History: Appendectomy, Bowel Resection, Heart Catheterization With Stent, Hernia Repair, Tubal Ligation Additional Past Surgical History / Comment(s): COLONOSCOPY, PARTIAL LT LOBECTOMY-(pt stated they thought i might of had tb but it was just scar tissue), D & C, 07-17-14 BOWEL RESECTION, [place] [facility] [place] , 12-18-17 lap robotic assisted repair of inc hernia Past Anesthesia/Blood Transfusion Reactions: No Reported Reaction Date of Last Stent Placement:: 11-15-15 [place] [facility] [place] Past Psychological History: Anxiety, Panic Disorder Smoking Status: Former smoker Past Alcohol Use History: None Reported Past Drug Use History: None Reported - Past Family History Mother Family Medical History: Congestive Heart Failure (CHF) Father Family Medical History: Cancer Additional Family Medical History / Comment(s): TYPE OF CANCER NOT KNOWN Medications and Allergies Home Medications Medication Instructions Recorded Confirmed Type clonazePAM [Clonazepam] 1 mg PO BID 02/20/14 05/10/24 History Aspirin EC [Ecotrin Low Dose] 81 mg PO HS 01/27/20 05/10/24 History Sertraline [Zoloft] 50 mg PO DAILY 06/28/22 05/10/24 History Albuterol Sulfate [Albuterol 2 puff INHALATION RT-Q6H PRN 10/01/22 05/10/24 History Sulfate Hfa] Pantoprazole [Protonix] 40 mg PO AC-BID 90 Days #180 tab 10/05/22 05/10/24 Rx hydrALAZINE HCL [Apresoline] 100 mg PO HS 10/18/22 05/10/24 History Budesonide/Glycopyr/Formoterol 2 puff INHALATION RT-BID 05/03/23 05/10/24 History [Breztri Aerosphere Inhaler] Ipratropium-Albuterol Nebulize 3 ml INHALATION RT-BID 05/03/23 05/10/24 History [Duoneb 0.5 mg-3 mg/3 ml Soln] Potassium Chloride ER [K-Dur 20] 20 meq PO HS 05/03/23 05/10/24 History atenoloL [Tenormin] 50 mg PO HS 05/03/23 05/10/24 History Nitroglycerin Sl Tabs [Nitrostat] 0.4 mg SL Q5M PRN 06/09/23 05/10/24 History Atorvastatin [Lipitor] 80 mg PO HS 05/10/24 05/10/24 History HYDROcodone/APAP 5-325MG [[place] 1 tab PO Q6HR PRN 05/10/24 05/10/24 History 5-325] Immune Triple Support 1 tab PO HS 05/10/24 05/10/24 History Linaclotide [Linzess] 290 mcg PO HS PRN 05/10/24 05/10/24 History Magnesium Oxide [Mag-Ox] 400 mg PO HS 05/10/24 05/10/24 History amLODIPine [Norvasc] 10 mg PO HS 05/10/24 05/10/24 History methocarbamoL [Robaxin-750] 750 mg PO BID PRN 05/10/24 05/10/24 History traMADol HCl [Ultram] 50 mg PO BID PRN 05/10/24 05/10/24 History Allergies Allergy/AdvReac Type Severity Reaction Status Date / Time hydrocodone bitartrate AdvReac Nausea & Verified 05/10/24 13:24 [From Vicodin] Vomiting propoxyphene napsylate AdvReac Nausea & Verified 05/10/24 13:24 [From Darvocet-N 100] Vomiting Physical Exam Vitals: Vital Signs Temp Pulse Pulse Resp BP BP BP 05/11/24 13:05 63 131/63 05/11/24 12:11 68 05/11/24 12:00 64 05/11/24 09:04 60 05/11/24 08:47 05/11/24 08:46 58 L 05/11/24 07:00 97.7 F 57 L 16 170/69 05/11/24 01:17 EDT 70 05/11/24 01:06 EDT 68 05/11/24 00:59 98.2 F 58 L 16 131/69 05/10/24 19:35 97.8 F 62 17 186/72 05/10/24 18:33 60 05/10/24 18:23 60 05/10/24 17:57 98.2 F 63 18 169/74 05/10/24 17:05 98.3 F 60 24 154/69 05/10/24 16:15 98.5 F 60 22 166/72 05/10/24 15:21 64 19 199/100 Pulse Ox 05/11/24 13:05 05/11/24 12:11 05/11/24 12:00 05/11/24 09:04 05/11/24 08:47 95 05/11/24 08:46 05/11/24 07:00 97 05/11/24 01:17 EDT 05/11/24 01:06 EDT 05/11/24 00:59 92 L 05/10/24 19:35 93 L 05/10/24 18:33 05/10/24 18:23 05/10/24 17:57 96 05/10/24 17:05 98 05/10/24 16:15 96 05/10/24 15:21 97 Intake and Output 05/10/24 05/11/24 05/11/24 23:59 06:59 14:59 Other: # Voids Weight Results 05/10/24 13:52 05/10/24 14:25 Cardiac Enzymes 05/10/24 05/10/24 05/10/24 Range/Units 14:25 14:25 17:03 AST 21 (14-36) U/L Troponin I <0.012 <0.012 (0.000-0.034) ng/mL 05/10/24 Range/Units 20:05 AST (14-36) U/L Troponin I <0.012 (0.000-0.034) ng/mL Coagulation 05/10/24 Range/Units 13:52 PT 10.3 (10.0-12.5) sec APTT 28.0 (22.0-30.0) sec Lipids 05/11/24 Range/Units 03:18 Triglycerides 153.00 H (0.00-149.00) mg/dL Cholesterol 216.00 H (0.00-200.00) mg/dL HDL Cholesterol 54.80 (40.00-60.00) mg/dL Cholesterol/HDL Ratio 3.94 Ratio Comprehensive Metabolic Panel 05/10/24 Range/Units 14:25 Sodium 138 (137-145) mmol/L Potassium 4.0 (3.5-5.1) mmol/L Chloride 108 H (98-107) mmol/L Carbon Dioxide 23 (22-30) mmol/L BUN 18 H (7-17) mg/dL Creatinine 1.19 H (0.52-1.04) mg/dL Glucose 89 (74-99) mg/dL Calcium 8.6 (8.4-10.2) mg/dL AST 21 (14-36) U/L ALT 16 (4-34) U/L Alkaline Phosphatase 130 H (38-126) U/L Total Protein 7.0 (6.3-8.2) g/dL Albumin 3.7 (3.5-5.0) g/dL Current Medications Generic Name Dose Route Start Last Admin Trade Name Freq PRN Reason Stop Dose Admin Hydrocodone Bitart/Acetaminophen 1 each 05/11/24 11:24 Hydrocodone/Apap 5-325mg 1 Each Tab PO Q6HR PRN Pain Albuterol Sulfate 2.5 mg 05/10/24 16:49 Albuterol Nebulized 2.5 Mg/3 Ml INHALATION RT-Q6H PRN Shortness Of Breath Albuterol/Ipratropium 3 ml 05/10/24 16:49 05/11/24 01:04 EDT Ipratropium-Albuterol 3 Ml Neb INHALATION 3 ml RT-QID PRN Administration Shortness Of Breath Amlodipine Besylate 5 mg 05/11/24 09:00 05/11/24 09:04 Amlodipine 5 Mg Tab PO 5 mg DAILY JUAN J Administration Aspirin 81 mg 05/11/24 21:00 Aspirin 81 Mg PO HS JUAN J Atenolol 50 mg 05/11/24 09:00 05/11/24 09:04 Atenolol 50 Mg Tab PO 50 mg DAILY JUAN J Administration Atorvastatin Calcium 80 mg 05/10/24 21:00 05/10/24 21:16 Atorvastatin 80 Mg Tab PO 80 mg HS JUAN J Administration Budesonide/Formoterol Fumarate 2 puff 05/10/24 20:00 05/11/24 08:46 Symbicort 160-4.5 Mcg Inhaler INHALATION 2 puff RT-BID JUAN J Administration Clonazepam 1 mg 05/10/24 22:00 05/11/24 09:04 Clonazepam 1 Mg Tab PO 1 mg TID JUAN J Administration Dapagliflozin 5 mg 05/11/24 09:00 05/11/24 09:04 Dapagliflozin Propanediol 5 Mg Tablet PO 5 mg DAILY JUAN J Administration Furosemide 20 mg 05/11/24 09:00 05/11/24 09:04 Furosemide 20 Mg Tab PO 20 mg DAILY JUAN J Administration Gabapentin 300 mg 05/10/24 22:00 05/11/24 09:04 Gabapentin 300 Mg Cap PO 300 mg TID JUAN J Administration Hydralazine HCl 100 mg 05/10/24 21:00 05/11/24 09:04 Hydralazine Hcl 50 Mg Tab PO 100 mg BID JUAN J Administration Hydralazine HCl 10 mg 05/10/24 20:44 Hydralazine Hcl 20 Mg/Ml 1 Ml Vial IV Q4HR PRN SBP>160 Hydromorphone HCl 0.5 mg 05/11/24 05:49 05/11/24 06:01 Hydromorphone 0.5 Mg/0.5 Ml Syringe IVP 0.5 mg Q4HR PRN Administration Pain Ipratropium Spivey 0.5 mg 05/10/24 20:00 05/11/24 12:00 Ipratropium 0.5 Mg/2.5 Ml Nebu INHALATION 0.5 mg RT-QID JUAN J Administration Magnesium Oxide 400 mg 05/11/24 21:00 Magnesium Oxide 400 Mg Tab PO HS [facility] Methocarbamol 750 mg 05/11/24 11:24 Methocarbamol 750 Mg Tab PO BID PRN Muscle Spasm Nitroglycerin 0.4 mg 05/10/24 16:48 Nitroglycerin Sl Tabs 0.4 Mg Tab SUBLINGUAL Q5M PRN Chest Pain Linaclotide [Linzess 290 mcg 05/11/24 11:24 ] 290 Mcg Capsule PO HS PRN Constipation Pantoprazole Sodium 40 mg 05/10/24 17:30 05/11/24 06:02 Pantoprazole 40 Mg Tablet PO 40 mg AC-BID JUAN J Administration Potassium Chloride 20 meq 05/11/24 21:00 Potassium Chloride Er 20 Meq Tab.Er PO HS [facility] Sertraline HCl 100 mg 05/11/24 09:00 05/11/24 09:16 Sertraline 100 Mg Tab PO 100 mg DAILY JUAN J Administration Tramadol HCl 50 mg 05/11/24 11:24 Tramadol 50 Mg Tab PO BID PRN Pain Intake and Output 05/10/24 05/11/24 05/11/24 23:59 06:59 14:59 Other: # Voids Weight 05/10/24 13:52 05/10/24 14:25
[2024-05-11] MEDS: traMADol 50 MG TAB PO PRN (16:23)
[2024-05-11] MEDS: ASPIRIN 81 MG PO SCH (20:44)
[2024-05-11] MEDS: MAGNESIUM OXIDE 400 MG TAB PO SCH (20:44)
[2024-05-11] MEDS: methylPREDNISolone SOD SUCCI 40 MG/ML 1 ML VIAL IV SCH (20:45)
[2024-05-11] MEDS ORDERED: ATORVASTATIN 80 MG TAB PO SCH (21:00)
[2024-05-11] MEDS ORDERED: amLODIPine 10 MG TAB PO SCH (21:00)
[2024-05-11] MEDS: QUEtiapine 25 MG TAB PO PRN (21:49)
[2024-05-11] MEDS: POTASSIUM CHLORIDE ER 20 MEQ TAB.ER PO SCH (21:50)
--- NOTE | 2024-05-12 03:24 | HP ---
HISTORY AND PHYSICAL HISTORY OF PRESENT ILLNESS: A 68-year-old white female, history of coronary artery disease with prior stents, hypertension, and dyslipidemia, came to the hospital with back pain and chest discomfort. Negative CPKs x3. Troponins x3. Most likely she has tenderness to palpation over the back radiating to the front of the chest. Suspect she has thoracic radiculopathy. CAT scan of the chest did not show any abnormalities. Cardiology is going to review the stuff from their office to follow up with the patient. We get neurosurgeon to see her for the thoracic spine for possible compression fracture. We went to get a consult with Dr. Elias. Acute coronary syndrome ruled out. MEDICATIONS: See old chart. SURGICAL HISTORY: See old chart. FAMILY HISTORY: Father, cancer. Mother, CHF. PAST MEDICAL HISTORY: GERD, dyslipidemia, COPD, hypertension, osteoarthritis, DVT, coronary artery disease, and fibromyalgia. MEDICATIONS: 1. DuoNeb q.i.d. 2. K-Dur 20 mEq daily. 3. Atenolol 150 daily. 4. Lipitor 80 daily. 5. [place]is 5 q.6. 6. Linzess 290 daily. 7. Mag oxide 400 daily. 8. Norvasc 10 mg daily. 9. Tramadol 50 b.i.d. ALLERGIES: Vicodin and Darvocet. PHYSICAL EXAMINATION: VITAL SIGNS: Blood pressure 150s to 190s over 74 to 100, pulse 60 to 64, temperature 92, and respiratory rate 18 to 24. LABORATORY DATA: BUN is 18 and creatinine 1.19, this was elevated. CONDITION: Stable. PROGNOSIS: Guarded. Get Neurosurgery to see. Cardiology cleared prior to discharge. Treated with home medications. Please see further orders. MMODL / IJN: [id number] /
[2024-05-12] MEDS: ACETAMINOPHEN TAB 500 MG TAB PO PRN (05:00)
[2024-05-12 06:23] LABS: ABG Base Excess 1.7 mmol/L; ABG HCO3 27 mmol/L (21-25); ABG Oxygen Saturation 97.5 % (94-97); ABG PCO2 43 mmHg (35-45); ABG PO2 94 mmHg (83-108); ABG TCO2 28 mmol/L (19-24); Allen Test Performed? Yes
--- NOTE | 2024-05-12 10:57 | P.CNOR ---
History of Present Illness - [facility] Consult date: 05/12/24 Consult reason: back pain (Upper back pain x 3 weeks) History of present illness: The patient is seen and examined at bedside. She is a pleasant 68-year-old female admitted in regards to chest pain radiating to her back. She has a history of COPD and has history of partial pulmonary lobectomy in the 80s. She has been a long-term patient of Dr. Best for her pulmonary concerns. She says that her main pain is at the middle part of her upper back. She says been going on for the past few weeks. She does not remember any specific incident or trauma but when she was getting out of bed she had new pain at her upper back. She has been following with her primary care physician for this with some pain medicines but she feels like it is difficult for her to control the pain and has been having significant pain at the area and is considering possibility of surgery. She said she had issues chronically with her lower back and had a compression fracture in her lower back which was treated with cement at [facility] last year. She reports that she remembers discussing the possibly of surgery with Dr. Best and worrying about possible pulmonary issues. She was able to get through that surgery adequately. She requires nasal cannula here in the hospital. She denies specific chest pain now. She says her pain is primarily in her middle back when she tries to move around. She says she is able to ambulate and get in and out of bed but has been having significant pain. She has not been using a brace thus far. Review of Systems Denies lower extremity numbness tingling or weakness. Denies any change in bowel bladder function. She has chronic COPD and had history of pulmonary lobectomy she says in the 80s. She is not sure why. She currently requires nasal cannula oxygen. She denies any chest pain she feels like it is mainly at her back between her shoulder blades. She denies any changes in her upper extremities. Denies any neck pain. She admits to chronic low back pain but had good relief with kyphoplasty at her lower back toward the end of last year at [facility]. Past Medical History Past Medical History: Coronary Artery Disease (CAD), COPD, Deep Vein Thrombosis (DVT), Fibromyalgia, GERD/Reflux, Hyperlipidemia, Hypertension, Osteoarthritis (OA), Skin Disorder Additional Past Medical History / Comment(s): DIVERTICULITIS, HX KIDNEY STONE- still has it but it's never moved , Pneumonia, ROSACEA, DVT RLE 2007,gerson cataracts, BILAT ILIAC ARTERIES BLOCKED PER PT, pulmonary fibrosis History of Any Multi-Drug Resistant Organisms: None Reported Past Surgical History: Appendectomy, Bowel Resection, Heart Catheterization With Stent, Hernia Repair, Tubal Ligation Additional Past Surgical History / Comment(s): COLONOSCOPY, PARTIAL LT LOBECTOMY-(pt stated they thought i might of had tb but it was just scar [place]), D & C, 07-17-14 BOWEL RESECTION, HEART CATH W 2 STENTS AT [facility] 11-15-15 , 12-18-17 lap robotic assisted repair of inc hernia Past Anesthesia/Blood Transfusion Reactions: No Reported Reaction Date of Last Stent Placement:: 11-15-15 AT [facility] Past Psychological History: Anxiety, Panic Disorder Smoking Status: Former smoker Past Alcohol Use History: None Reported Past Drug Use History: None Reported - Past Family History Mother Family Medical History: Congestive Heart Failure (CHF) Father Family Medical History: Cancer Additional Family Medical History / Comment(s): TYPE OF CANCER NOT KNOWN Medications and Allergies Home Medications Medication Instructions Recorded Confirmed Type clonazePAM [Clonazepam] 1 mg PO BID 02/20/14 05/10/24 History Aspirin EC [Ecotrin Low Dose] 81 mg PO HS 01/27/20 05/10/24 History Sertraline [Zoloft] 50 mg PO DAILY 06/28/22 05/10/24 History Albuterol Sulfate [Albuterol 2 puff INHALATION RT-Q6H PRN 10/01/22 05/10/24 History Sulfate Hfa] Pantoprazole [Protonix] 40 mg PO AC-BID 90 Days #180 tab 10/05/22 05/10/24 Rx hydrALAZINE HCL [Apresoline] 100 mg PO HS 10/18/22 05/10/24 History Budesonide/Glycopyr/Formoterol 2 puff INHALATION RT-BID 05/03/23 05/10/24 History [Breztri Aerosphere Inhaler] Ipratropium-Albuterol Nebulize 3 ml INHALATION RT-BID 05/03/23 05/10/24 History [Duoneb 0.5 mg-3 mg/3 ml Soln] Potassium Chloride ER [K-Dur 20] 20 meq PO HS 05/03/23 05/10/24 History atenoloL [Tenormin] 50 mg PO HS 05/03/23 05/10/24 History Nitroglycerin Sl Tabs [Nitrostat] 0.4 mg SL Q5M PRN 06/09/23 05/10/24 History Atorvastatin [Lipitor] 80 mg PO HS 05/10/24 05/10/24 History HYDROcodone/APAP 5-325MG [[place] 1 tab PO Q6HR PRN 05/10/24 05/10/24 History 5-325] Immune Triple Support 1 tab PO HS 05/10/24 05/10/24 History Linaclotide [Linzess] 290 mcg PO HS PRN 05/10/24 05/10/24 History Magnesium Oxide [Mag-Ox] 400 mg PO HS 05/10/24 05/10/24 History amLODIPine [Norvasc] 10 mg PO HS 05/10/24 05/10/24 History methocarbamoL [Robaxin-750] 750 mg PO BID PRN 05/10/24 05/10/24 History traMADol HCl [Ultram] 50 mg PO BID PRN 05/10/24 05/10/24 History Allergies Allergy/AdvReac Type Severity Reaction Status Date / Time hydrocodone bitartrate AdvReac Nausea & Verified 05/10/24 13:24 [From Vicodin] Vomiting propoxyphene napsylate AdvReac Nausea & Verified 05/10/24 13:24 [From Darvocet-N 100] Vomiting Physical Examination Osteopathic Statement: *. No significant issues noted on an osteopathic structural exam other than those noted in the History and Physical/Consult. - L Spine: dermatomal strength & reflexes bilateral Strength: hip flexion: 5/5 (Her thoracic spine has some tenderness to palpation over the midline between her shoulder blades. There is no open wounds lacerations or abrasions. Her upper extremities and lower extremities have hide of 5 strength throughout. No hyperreflexia. Calves and thighs soft nontender.) Results X-ray and CT scan is reviewed on this admission in regards to her thoracic spine. I also had a chance to review her thoracic MRI from April [address] Garber. It shows that T6 compression fracture with about 30% height loss. The height loss is essentially stable from April 14 through her current imaging now and no member. There is no bony retropulsion. - Labs Labs: Abnormal Lab Results - Last 24 Hours (Table) 05/11/24 05/12/24 Range/Units 11:42 06:01 D-Dimer 1.56 H (<0.60) mg/L FEU ABG HCO3 27 H (21-25) mmol/L ABG Total CO2 28 H (19-24) mmol/L ABG O2 Saturation 97.5 H (94-97) % H & H 05/10/24 Range/Units 13:52 Hgb 13.4 (11.4-16.0) gm/dL Hct 40.9 (34.0-46.0) % Coagulation 05/10/24 Range/Units 13:52 INR 0.9 (<1.2) Result Diagrams: 05/10/24 13:52 05/10/24 14:25 Assessment and Plan Assessment: Subacute T6 compression fracture without neurologic deficit. Pathologic fracture due to osteoporosis at T6 Severe COPD Multiple medical history including coronary artery disease Plan: Subacute T6 compression fracture without neurologic deficit. Pathologic fracture due to osteoporosis at T6 Severe COPD Multiple medical history including coronary artery disease The patient has multiple medical issues with long history of treatment. She has significant COPD with pulmonary and cardiac issues which require active management and medication. Currently she had some chest pain but does not seem to be having an acute cardiac event as per cardiology. She is still requiring nasal cannula. The patient has a subacute compression fracture at T6 with approximate 25% compression. This has been stable over the past 4 weeks. She has been trying to treat this conservatively with relative rest and medication however she continues to have significant pain. She has not been wearing a thoracic brace. She says that she had some benefit with a procedure at her lumbar spine last year for kyphoplasty done at [facility] and she is interested in this possibility. I had a long discussion with her in regards to the possibly of kyphoplasty at T6. I discussed the risk complications alternatives and benefits. Given her cardiac and pulmonary status I explained to her that she is certainly at increased risk with any type of surgical procedure especially as surgery would involve sedation with intubation. It is difficult to predict how she will react given her significant COPD with the possibility of intubation. The surgery is somewhat short usually lasting less than 40 minutes with minimal blood loss less than 50 cc. I would like to go ahead and order her a TLSO brace to see if it offers her some comfort. The fracture can heal well with bracing and conservative treatment if the patient is able to tolerate it and we will see if she tolerates bracing for this. Will put an order in the chart for her and hopefully can get a brace expedited. If the patient is not able to tolerate conservative treatment then she can be a candidate from an orthopedic spine standpoint for kyphoplasty at T6. She would need clearance from cardiology medicine and from pulmonary medicine as well. I discussed this with her at length and she seems to understand the risks involved. If we plan for surgery this may happen as soon as Sunday. Will continue to follow her closely Time with Patient: Greater than 30
--- NOTE | 2024-05-12 11:09 | P.PN ---
Subjective HISTORY OF PRESENT ILLNESS: 05/11/2024 This is a 68-year-old female patient with a past medical history significant for CAD with prior vascularization as well as PAD with prior vascularization as well as hypertension and dyslipidemia and chronic pain presented to the hospital complaining of upper back pain and chest discomfort. She is known to have chronic back pain. She was noted to have T6 fracture on the MRI was performed in the past. She presented back to the hospital complaining of upper back discomfort appears to be somewhat reproducible on examination and she states also that she did have some discomfort in the chest radiating from her back. No upper extremities discomfort. No shortness of breath or dizziness or lightheadedness or any feeling of heart racing or fluttering or any presyncope or syncope or edema in the lower extremities. The patient is known to have chronic pain. She underwent in the office recently a stress test and echocardiogram the details are unavailable at this point. During this admission she underwent a workup including an EKG showing sinus mechanism with no significant ST or T wave abnormalities. She underwent also further cardiac evaluation including cardiac enzymes came in to be unremarkable with CT scan of the chest did not show any acute abnormalities as well. Currently she is chest pain-free but she continues to have upper back discomfort appears to be somewhat reproducible on examination. The physical examination is remarkable for regular rhythm with a soft systolic murmur at the right upper sternal border with clear breathing sounds bilaterally and no edema was noted in the lower extremities 05/12/2024 Patient examined this morning at the bedside. Per nursing, patient became confused and agitated last night. She was given Seroquel. Patient was also febrile overnight with a temperature of 101.7. Patient is obtunded this morning. Telemetry reveals sinus mechanism. PHYSICAL EXAM: VITAL SIGNS: Reviewed. GENERAL: Well-developed in no acute distress. NECK: Supple. No JVD or thyromegaly LUNGS: Respirations even and unlabored. Lungs essentially clear to auscultation bilaterally. HEART: Regular rate and rhythm. S1 and S2 heard. EXTREMITIES: Normal range of motion. No clubbing or cyanosis. Peripheral pulses intact. No lower extremity edema ASSESSMENT: Chest pain, acute coronary syndrome ruled out Back pain/subacute T6 compression fracture Altered mental status, etiology unclear Fever History of coronary artery disease History of peripheral arterial disease Hypertension Hyperlipidemia PLAN: Obtain 2D echo to assess cardiac structure and function No recent stress test is available at the cardiology office. There is possibility that stress test has been taken but not finalized yet. However, no plans for inpatient stress testing due to patient's altered mental status along with fever. Consult neurology for evaluation Continue telemetry monitoring to assess for any arrhythmias Further recommendations pending patient course Nurse practitioner note has been reviewed by physician. Signing provider agrees with the documented findings, assessment, and plan of care documented by [employer] as a scribe. Objective - Vital Signs Vital signs: Vital Signs Temp 99.2 F 05/12/24 07:00 Pulse 69 05/12/24 08:00 Resp 20 05/12/24 08:00 BP 148/70 05/12/24 07:00 Pulse Ox 94 L 05/12/24 07:00 FiO2 Intake & Output 05/11/24 05/12/24 05/12/24 18:59 06:59 18:59 Intake Total 480 Balance 480 Intake: Oral 480 Other: Voiding Method Toilet # Voids 2 1 - Labs CBC & Chem 7: 05/10/24 13:52 05/10/24 14:25 Labs: Abnormal Lab Results - Last 24 Hours (Table) 05/11/24 05/12/24 Range/Units 11:42 06:01 D-Dimer 1.56 H (<0.60) mg/L FEU ABG HCO3 27 H (21-25) mmol/L ABG Total CO2 28 H (19-24) mmol/L ABG O2 Saturation 97.5 H (94-97) %
--- NOTE | 2024-05-12 11:42 | P.CNPUL ---
History of Present Illness Consult date: 05/12/24 Reason for consult: dyspnea, COPD, hypoxemia Chief complaint: Back pain COPD History of present illness: 68-year-old female seen evaluate examined on medical floor due to oxygen dependent COPD, patient was admitted to the hospital with severe degree of back pain which is acute on chronic, patient has prior workup with MRI of the spine significant for T6 compression fracture for the last few days she has started having back pain chest pain came into the hospital for further evaluation. Patient has oxygen dependent COPD takes bronchodilator and inhalers this morning patient was unresponsive stat recommendation was requested from staff arterial blood gas was checked no significant hypercapnia was noted ABG was fairly within normal limit on 3 L noted that patient not only on pain medicine but also on benzodiazepine with Klonopin 3 times a day. Chest x-ray chronic pulmonary changes. CT scan of the chest no dissection seen, cardiomegaly interstitial edema, coronary arthrosclerosis, medial prominence of lymph node with likely suggestive of CHF. Tmax was one 1.7 now Tmax is 99 today saturation 94% on 3 L, CBC within normal limit, chemistry BUN/creatinine 18/1.19, D-dimer 1.56, ABG 7 point on 3 L oxygen, urine cultures not done. Meds include chronic pain meds along with DuoNeb, antihypertensive, IV Rocephin, Lasix, hydralazine, and Klonopin 1 mg 3 times a day regimen Past medical issues are significant for coronary artery disease, DVT, fibromyalgia, GERD, dyslipidemia, fibromyalgia, dyslipidemia, hypertension hypertensive cardiovascular Review of Systems All systems: negative Past Medical History Past Medical History: Coronary Artery Disease (CAD), COPD, Deep Vein Thrombosis (DVT), Fibromyalgia, GERD/Reflux, Hyperlipidemia, Hypertension, Osteoarthritis (OA), Skin Disorder Additional Past Medical History / Comment(s): DIVERTICULITIS, HX KIDNEY STONE- still has it but it's never moved , Pneumonia, ROSACEA, DVT RLE 2007,gerson cataracts, BILAT ILIAC ARTERIES BLOCKED PER PT, pulmonary fibrosis History of Any Multi-Drug Resistant Organisms: None Reported Past Surgical History: Appendectomy, Bowel Resection, Heart Catheterization With Stent, Hernia Repair, Tubal Ligation Additional Past Surgical History / Comment(s): COLONOSCOPY, PARTIAL LT LOBECTOMY-(pt stated they thought i might of had tb but it was just scar tissue), D & C, 07-17-14 BOWEL RESECTION, HEART CATH [place] 2 ST[place] [facility] [place] , 12-18-17 lap robotic assisted repair of inc hernia Past Anesthesia/Blood Transfusion Reactions: No Reported Reaction Date of Last Stent Placement:: 11-15-15 AT [facility] [place] Past Psychological History: Anxiety, Panic Disorder Smoking Status: Former smoker Past Alcohol Use History: None Reported Past Drug Use History: None Reported - Past Family History Mother Family Medical History: Congestive Heart Failure (CHF) Father Family Medical History: Cancer Additional Family Medical History / Comment(s): TYPE OF CANCER NOT KNOWN Medications and Allergies Home Medications Medication Instructions Recorded Confirmed Type clonazePAM [Clonazepam] 1 mg PO BID 02/20/14 05/10/24 History Aspirin EC [Ecotrin Low Dose] 81 mg PO HS 01/27/20 05/10/24 History Sertraline [Zoloft] 50 mg PO DAILY 06/28/22 05/10/24 History Albuterol Sulfate [Albuterol 2 puff INHALATION RT-Q6H PRN 10/01/22 05/10/24 History Sulfate Hfa] Pantoprazole [Protonix] 40 mg PO AC-BID 90 Days #180 tab 10/05/22 05/10/24 Rx hydrALAZINE HCL [Apresoline] 100 mg PO HS 10/18/22 05/10/24 History Budesonide/Glycopyr/Formoterol 2 puff INHALATION RT-BID 05/03/23 05/10/24 History [Breztri Aerosphere Inhaler] Ipratropium-Albuterol Nebulize 3 ml INHALATION RT-BID 05/03/23 05/10/24 History [Duoneb 0.5 mg-3 mg/3 ml Soln] Potassium Chloride ER [K-Dur 20] 20 meq PO HS 05/03/23 05/10/24 History atenoloL [Tenormin] 50 mg PO HS 05/03/23 05/10/24 History Nitroglycerin Sl Tabs [Nitrostat] 0.4 mg SL Q5M PRN 06/09/23 05/10/24 History Atorvastatin [Lipitor] 80 mg PO HS 05/10/24 05/10/24 History HYDROcodone/APAP 5-325MG [[place] 1 tab PO Q6HR PRN 05/10/24 05/10/24 History 5-325] Immune Triple Support 1 tab PO HS 05/10/24 05/10/24 History Linaclotide [Linzess] 290 mcg PO HS PRN 05/10/24 05/10/24 History Magnesium Oxide [Mag-Ox] 400 mg PO HS 05/10/24 05/10/24 History amLODIPine [Norvasc] 10 mg PO HS 05/10/24 05/10/24 History methocarbamoL [Robaxin-750] 750 mg PO BID PRN 05/10/24 05/10/24 History traMADol HCl [Ultram] 50 mg PO BID PRN 05/10/24 05/10/24 History Allergies Allergy/AdvReac Type Severity Reaction Status Date / Time hydrocodone bitartrate AdvReac Nausea & Verified 05/10/24 13:24 [From Vicodin] Vomiting propoxyphene napsylate AdvReac Nausea & Verified 05/10/24 13:24 [From Darvocet-N 100] Vomiting Physical Exam Vitals: Vital Signs Temp Pulse Pulse Resp BP Pulse Ox 05/12/24 08:00 69 20 05/12/24 07:00 99.2 F 65 18 148/70 94 L 05/12/24 04:03 100.4 F H 81 152/73 90 L 05/12/24 02:00 101.7 F H 78 17 144/77 91 L 05/12/24 00:10 99.4 F 84 24 130/66 90 L 05/11/24 20:31 78 05/11/24 20:22 94 L 05/11/24 20:19 75 05/11/24 19:37 98.2 F 74 18 192/67 81 L 05/11/24 16:19 74 05/11/24 16:09 72 05/11/24 14:11 97.5 F L 65 16 139/70 92 L 05/11/24 13:05 63 131/63 05/11/24 12:11 68 05/11/24 12:00 64 Intake and Output 05/11/24 05/12/24 05/12/24 22:59 06:59 14:59 Intake Total 480 Balance 480 Intake: Oral 480 Other: Voiding Method Toilet # Voids 2 1 - Constitutional General appearance: average body habitus, cooperative, disheveled - EENT Eyes: EOMI, PERRLA Ears: bilateral: normal - Neck Neck: normal ROM Carotids: bilateral: upstroke normal Thyroid: bilateral: normal size - Respiratory Respiratory: bilateral: CTA - Cardiovascular Rhythm: regular Heart sounds: normal: S1, S2 - Gastrointestinal General gastrointestinal: normal bowel sounds - Integumentary Integumentary: normal turgor - Neurologic Neurologic: CNII-XII intact - Musculoskeletal Musculoskeletal: gait normal, generalized weakness, strength equal bilaterally - Psychiatric Psychiatric: A&O x's 3, appropriate affect, intact judgment & insight Results - Laboratory Findings CBC and BMP: 05/10/24 13:52 05/10/24 14:25 ABG ABG pH 7.40 (7.35-7.45) 05/12/24 06:01 ABG pCO2 43 mmHg (35-45) 05/12/24 06:01 ABG pO2 94 mmHg (83-108) 05/12/24 06:01 ABG O2 Saturation 97.5 % (94-97) H 05/12/24 06:01 PT/INR, D-dimer PT 10.3 sec (10.0-12.5) 05/10/24 13:52 INR 0.9 (<1.2) 05/10/24 13:52 D-Dimer 1.56 mg/L FEU (<0.60) H 05/11/24 11:42 Abnormal lab findings: Abnormal Labs 05/10/24 05/10/24 05/11/24 13:52 14:25 03:18 Lymphocytes # 0.6 L D-Dimer ABG HCO3 ABG Total CO2 ABG O2 Saturation Chloride 108 H BUN 18 H Creatinine 1.19 H Alkaline Phosphatase 130 H Triglycerides 153.00 H Cholesterol 216.00 H 05/11/24 05/12/24 11:42 06:01 Lymphocytes # D-Dimer 1.56 H ABG HCO3 27 H ABG Total CO2 28 H ABG O2 Saturation 97.5 H Chloride BUN Creatinine Alkaline Phosphatase Triglycerides Cholesterol - Diagnostic Findings Chest x-ray: report reviewed, image reviewed CT scan - chest: report reviewed, image reviewed Assessment and Plan Assessment: Altered mental status likely related to Klonopin 1 mg 3 times a day would recommend to lower it down to 0.5 3 times daily mental status is improved now Obstructive pulmonary disease not in exacerbation, continue bronchodilator and inhaled aerosolized steroids Spiking fever of 102, suspect UTI/urinary tract infection will send UA and C&S continue Rocephin Back pain with compression fracture of T6 patient is being considered for kyphoplasty Plan: Adjust narcotics and benzodiazepine to avoid excessive somnolent affect Klonopin have been reduced to 0.5 3 times daily as needed Continue IV antibiotics Bronchodilator Send urine for urinalysis and culture Patient will likely need sleep study as outpatient Overall patient is being considered for kyphoplasty of T6, patient does have end-stage COPD however given the severity of pain and complication associated with T6 vertebra would recommend to proceed with the surgery however would be very watchful during farzana and postoperative, to avoid complication like pneumonia and atelectasis and ventilatory support which she has at risk higher than usual Time with Patient: Greater than 30
--- NOTE | 2024-05-12 14:55 | P.CNNES ---
History of Present Illness Consult date: 05/12/24 Requesting physician: Jerrod Christianson Reason for Consult: ams History of Present Illness: This 68-year-old woman with neurology is consulted because of altered mental status. Patient states that she came to our facility because of her back pain. She states she is having middle back pain that is chronic but is progressively getting worse and had lower back surgery a few month ago and [place] [facility]. It seems that yesterday and today early in the morning patient had episode of confusion. It seems that she had a fever as well during this admission. Patient denies of any headache, any nausea vomiting, any focal weakness. She seems that her confusion has resolved and she is much better now. She denies any history of stroke, any history of seizure. She denies any urinary or bowel incontinence or tongue bite. Some of the workup during this hospital visit consisted of: Overnight patient had a Tmax of 101.7 Fahrenheit White blood cell is 7.6 on presentation which is within normal limits. Calcium is 8.6, magnesium is 1.8, sodium is 138, initial serum glucose is 89. Plasma lactic acid vein on presentation is 1.6. Patient has subacute T8 6 compression fracture without neurological deficit and orthopedic team is consulted. Patient also has pathological fracture due to osteoporosis T6. Review of Systems Positive and negative as per HPI. Past Medical History Past Medical History: Coronary Artery Disease (CAD), COPD, Deep Vein Thrombosis (DVT), Fibromyalgia, GERD/Reflux, Hyperlipidemia, Hypertension, Osteoarthritis (OA), Skin Disorder Additional Past Medical History / Comment(s): DIVERTICULITIS, HX KIDNEY STONE- still has it but it's never moved , Pneumonia, ROSACEA, DVT RLE 2007,gerson cataracts, BILAT ILIAC ARTERIES BLOCKED PER PT, pulmonary fibrosis History of Any Multi-Drug Resistant Organisms: None Reported Past Surgical History: Appendectomy, Bowel Resection, Heart Catheterization With Stent, Hernia Repair, Tubal Ligation Additional Past Surgical History / Comment(s): COLONOSCOPY, PARTIAL LT LOBECTOMY-(pt stated they thought i might of had tb but it was just scar tissue), D & C, 07-17-14 BOWEL RESECTION, [place] 2 [place] [facility] [place] 12-18-17 lap robotic assisted repair of inc hernia Past Anesthesia/Blood Transfusion Reactions: No Reported Reaction Date of Last Stent Placement:: 11-15-15 [place] [facility] [place] Past Psychological History: Anxiety, Panic Disorder Smoking Status: Former smoker Past Alcohol Use History: None Reported Past Drug Use History: None Reported - Past Family History Mother Family Medical History: Congestive Heart Failure (CHF) Father Family Medical History: Cancer Additional Family Medical History / Comment(s): TYPE OF CANCER NOT KNOWN Medications and Allergies Home Medications Medication Instructions Recorded Confirmed Type clonazePAM [Clonazepam] 1 mg PO BID 02/20/14 05/10/24 History Aspirin EC [Ecotrin Low Dose] 81 mg PO HS 01/27/20 05/10/24 History Sertraline [Zoloft] 50 mg PO DAILY 06/28/22 05/10/24 History Albuterol Sulfate [Albuterol 2 puff INHALATION RT-Q6H PRN 10/01/22 05/10/24 History Sulfate Hfa] Pantoprazole [Protonix] 40 mg PO AC-BID 90 Days #180 tab 10/05/22 05/10/24 Rx hydrALAZINE HCL [Apresoline] 100 mg PO HS 10/18/22 05/10/24 History Budesonide/Glycopyr/Formoterol 2 puff INHALATION RT-BID 05/03/23 05/10/24 History [Breztri Aerosphere Inhaler] Ipratropium-Albuterol Nebulize 3 ml INHALATION RT-BID 05/03/23 05/10/24 History [Duoneb 0.5 mg-3 mg/3 ml Soln] Potassium Chloride ER [K-Dur 20] 20 meq PO HS 05/03/23 05/10/24 History atenoloL [Tenormin] 50 mg PO HS 05/03/23 05/10/24 History Nitroglycerin Sl Tabs [Nitrostat] 0.4 mg SL Q5M PRN 06/09/23 05/10/24 History Atorvastatin [Lipitor] 80 mg PO HS 05/10/24 05/10/24 History HYDROcodone/APAP 5-325MG [[place] 1 tab PO Q6HR PRN 05/10/24 05/10/24 History 5-325] Immune Triple Support 1 tab PO HS 05/10/24 05/10/24 History Linaclotide [Linzess] 290 mcg PO HS PRN 05/10/24 05/10/24 History Magnesium Oxide [Mag-Ox] 400 mg PO HS 05/10/24 05/10/24 History amLODIPine [Norvasc] 10 mg PO HS 05/10/24 05/10/24 History methocarbamoL [Robaxin-750] 750 mg PO BID PRN 05/10/24 05/10/24 History traMADol HCl [Ultram] 50 mg PO BID PRN 05/10/24 05/10/24 History Allergies Allergy/AdvReac Type Severity Reaction Status Date / Time hydrocodone bitartrate AdvReac Nausea & Verified 05/10/24 13:24 [From Vicodin] Vomiting propoxyphene napsylate AdvReac Nausea & Verified 05/10/24 13:24 [From Darvocet-N 100] Vomiting Physical Examination - Vital Signs Vital Signs: Vital Signs Temp Pulse Pulse Resp BP Pulse Ox 05/12/24 11:44 70 05/12/24 11:24 70 05/12/24 08:00 69 20 05/12/24 07:00 99.2 F 65 18 148/70 94 L 05/12/24 04:03 100.4 F H 81 152/73 90 L 05/12/24 02:00 101.7 F H 78 17 144/77 91 L 05/12/24 00:10 99.4 F 84 24 130/66 90 L 05/11/24 20:31 78 05/11/24 20:22 94 L 05/11/24 20:19 75 05/11/24 19:37 98.2 F 74 18 192/67 81 L 05/11/24 16:19 74 05/11/24 16:09 72 Intake and Output 05/11/24 05/12/24 05/12/24 22:59 06:59 14:59 Intake Total 480 Balance 480 Intake: Oral 480 Other: Voiding Method Toilet # Voids 2 1 GENERAL: The patient is lying in bed and is not in acute distress. NEUROLOGICAL: Higher mental function: The patient is awake, alert, oriented to self, place and time. Patient is following simple commands. Able to name objects correctly such as pen, watch. No aphasia and no neglect. Cranial nerves: The pupils are round, equal and reactive to light and accommodation. Visual dominguez are full to confrontation throughout. Extraocular movement is intact no nystagmus is noted. Facial sensation is normal to touch throughout. The facial strength is normal throughout. Hearing is normal bilaterally to hand rub. Tongue is midline and moved [id number] without any difficulty. No dysarthria is noted. Shoulder shrug is normal bilaterally. Motor: The strength is 5 over 5 throughout. Normal tone and bulk. Cerebellum: Normal finger to nose bilaterally. Sensation: Sensation is normal to touch throughout. Reflexes (right/left): 2+ throughout. Plantars are downgoing bilaterally. Results - Laboratory Findings CBC and BMP: 05/10/24 13:52 05/10/24 14:25 Abnormal Lab Findings: Abnormal Labs 05/10/24 05/10/24 05/11/24 13:52 14:25 03:18 Lymphocytes # 0.6 L D-Dimer ABG HCO3 ABG Total CO2 ABG O2 Saturation Chloride 108 H BUN 18 H Creatinine 1.19 H Alkaline Phosphatase 130 H Triglycerides 153.00 H Cholesterol 216.00 H 05/11/24 05/12/24 11:42 06:01 Lymphocytes # D-Dimer 1.56 H ABG HCO3 27 H ABG Total CO2 28 H ABG O2 Saturation 97.5 H Chloride BUN Creatinine Alkaline Phosphatase Triglycerides Cholesterol Assessment and Plan Assessment: This is a 68-year-old woman who presents because of worsening middle back pain. Overnight patient had fever of a Tmax of 101.7F and yesterday and today rn clinical documentation was confused. Episode of confusion and I suspect it is due to pyrexia seems suspicious for sepsis of unknown origin--confusion has resolved Worsening middle back pain Subacute T6 compression fracture and it seems the fracture was felt due to pathological osteoporosis History of coronary artery disease post stent History of hypertension Diverticulitis History of pulmonary fibrosis History of DVT. History of COPD Plan: I ordered CT of the head Consulted infection disease specialist Patient has urine analysis and blood culture ordered. Orthopedic surgery team is consulted Cardiology team is consulted Pulmonary team is consulted Will defer the rest of the medical management the primary and other specialist The plan discussed with the patient and her nurse. Thank you for the consultation. Time with Patient: Greater than 30
[2024-05-12 15:06] LABS: Basophils % (A) 0 %; Eosinophils # (A) 0.2 k/uL (0-0.7); Eosinophils % (A) 2 %; HCT 38.7 % (34.0-46.0); HGB 12.3 gm/dL (11.4-16.0); Lymphocytes # (A) 0.7 k/uL (1.0-4.8); Lymphocytes % (A) 6 %; MCH 29.8 pg (25.0-35.0); MCHC 31.9 g/dL (31.0-37.0); MCV 93.3 fL (80.0-100.0); Mean Platelet Volume 6.7; Monocytes # (A) 0.6 k/uL (0-1.0); Monocytes % (A) 5 %; Neutrophils # (A) 9.8 k/uL (1.3-7.7); Neutrophils % (A) 85 %; Platelet Count 300 k/uL (150-450); RBC 4.15 m/uL (3.80-5.40); RDW 14.7 % (11.5-15.5); WBC 11.5 k/uL (3.8-10.6)
[2024-05-12 15:22] LABS: African American GFR (CKD) 28 (>60 ml/min/1.73 sqM); Anion Gap 8 mmol/L; Blood Urea Nitrogen 33 mg/dL (7-17); Calcium 8.6 mg/dL (8.4-10.2); Carbon Dioxide 24 mmol/L (22-30); Chloride 107 mmol/L (98-107); Glucose 96 mg/dL (74-99); Non-African American GFR(CKD) 25 (>60 ml/min/1.73 sqM); Potassium 3.6 mmol/L (3.5-5.1); Sodium 139 mmol/L (137-145)
[2024-05-12 16:19] LABS: Appearance,Urine Clear (Clear); Bilirubin,Urine Negative (Negative); Blood,Urine Negative (Negative); Color,Urine Colorless; Glucose,Urine (UA) 3+ (Negative); Hyaline Casts,Urine 1 /lpf (0-2); Ketones,Urine Negative (Negative); Leukocyte Esterase,Urine Negative (Negative); Nitrite,Urine Negative (Negative); Protein,Urine 2+ (Negative); RBC,Urine <1 /hpf (0-5); Specific Gravity,Urine 1.011 (1.001-1.035); Squamous Epithelial Cell,Urine 1 /hpf (0-4); Urobilinogen,Urine <2.0 mg/dL (<2.0); WBC,Urine 1 /hpf (0-5)
[2024-05-12] MEDS: HYDROcodone/APAP 5-325MG 1 EACH TAB PO PRN (16:43)
--- NOTE | 2024-05-12 17:02 | CT ---
EXAMINATION TYPE: CT brain wo con DATE OF EXAM: 05/12/2024 4:56 PM COMPARISON: None. CLINICAL INDICATION: Female, 68 years old with history of AMS, weakness, ams TECHNIQUE: Brain: Axial CT images of the brain were obtained with coronal and sagittal reformats created and rev iewed. Contrast used: None. Oral contrast used: None. CT DLP: 1108.4 mGycm, Automated exposure control for dose reduction was used. FINDINGS: Brain: Extra-axial spaces: No abnormal extra-axial fluid collections. Ventricular system: Within normal limits Cerebral parenchyma: No acute intraparenchymal hemorrhage or mass effect. The hoover-white junction is well differentiated. Cerebellum: Unremarkable. Mass effect: No evidence of midline shift. Intracranial vasculature: unremarkable Soft tissues: Normal. Calvarium/osseous structures: No depressed skull fracture. Paranasal sinuses and mastoid air cells: Mild scattered paranasal sinus disease. Visualized orbits: Orbital contents are intact. IMPRESSION: No acute intracranial process. [facility], , 05/12/2024 5:00 PM
--- NOTE | 2024-05-13 08:19 | P.CONS ---
History of Present Illness - Reason for Consult Consult date: 05/12/24 Fever Requesting physician: Gregorio Garber - Chief Complaint Chest pain x few days - History of Present Illness Patient is a 68-year-old female with a past medical history significant for coronary artery disease COPD DVT fibromyalgia reflux hypertension hyperlipidemia osteoarthritis presenting to the hospital 2 days ago for evaluation of chest pain and this patient apparently did have an MRI about a year ago with evidence of T6 compression fracture patient was complaining of pain mostly to the back between the 2 shoulder blade area describing it to be sharp of moderate intensity without radiation denies having any weakness to the lower extremity or any numbness patient on presentation to the hospital was afebrile however she did spike a fever of 101.7 F at 2 AM for the patient did have blood cultures done and infectious disease was consulted for further management of antibiotic therapy patient denies having any headache has been complaining of some sore throat she also have a cough which is mild to moderate intensity mostly dry in nature no uptake of any sputum P denies any nausea no vomiting no abdominal pain or any diarrhea workup so far include patient did have white count of 11.5 this morning with a left shift BUN and creatinine has been mildly elevated liver enzymes this admission has been normal patient did have a chest x-ray chronic changes without acute pulmonary process no significant change from the prior patient also have a CT angiogram of the chest that was negative for PE cardiomegaly with pulmonary vascular congestion -7 p rominent lymph nodes however there was no evidence of any focal consolidation on the CTA Review of Systems Positive point and negatives has been mentioned in the HPI, complete review of systems was performed and all other systems are negative Past Medical History Past Medical History: Coronary Artery Disease (CAD), COPD, Deep Vein Thrombosis (DVT), Fibromyalgia, GERD/Reflux, Hyperlipidemia, Hypertension, Osteoarthritis (OA), Skin Disorder Additional Past Medical History / Comment(s): DIVERTICULITIS, HX KIDNEY STONE- still has it but it's never moved , Pneumonia, ROSACEA, DVT RLE 2007,gerson cataracts, BILAT ILIAC ARTERIES BLOCKED PER PT, pulmonary fibrosis History of Any Multi-Drug Resistant Organisms: None Reported Past Surgical History: Appendectomy, Bowel Resection, Heart Catheterization With Stent, Hernia Repair, Tubal Ligation Additional Past Surgical History / Comment(s): COLONOSCOPY, PARTIAL LT LOBECTOMY-(pt stated they thought i might of had tb but it was just scar tissue), D & C, 07-17-14 BOWEL RESECTION, HEART CATH W 2 STENTS AT [facility] [place] 11-15-15 , 12-18-17 lap robotic assisted repair of inc hernia Past Anesthesia/Blood Transfusion Reactions: No Reported Reaction Date of Last Stent Placement:: 11-15-15 AT [facility] [place] Past Psychological History: Anxiety, Panic Disorder Smoking Status: Former smoker Past Alcohol Use History: None Reported Past Drug Use History: None Reported - Past Family History Mother Family Medical History: Congestive Heart Failure (CHF) Father Family Medical History: Cancer Additional Family Medical History / Comment(s): TYPE OF CANCER NOT KNOWN Medications and Allergies Home Medications Medication Instructions Recorded Confirmed Type clonazePAM [Clonazepam] 1 mg PO BID 02/20/14 05/10/24 History Aspirin EC [Ecotrin Low Dose] 81 mg PO HS 01/27/20 05/10/24 History Sertraline [Zoloft] 50 mg PO DAILY 06/28/22 05/10/24 History Albuterol Sulfate [Albuterol 2 puff INHALATION RT-Q6H PRN 10/01/22 05/10/24 History Sulfate Hfa] Pantoprazole [Protonix] 40 mg PO AC-BID 90 Days #180 tab 10/05/22 05/10/24 Rx hydrALAZINE HCL [Apresoline] 100 mg PO HS 10/18/22 05/10/24 History Budesonide/Glycopyr/Formoterol 2 puff INHALATION RT-BID 05/03/23 05/10/24 History [Breztri Aerosphere Inhaler] Ipratropium-Albuterol Nebulize 3 ml INHALATION RT-BID 05/03/23 05/10/24 History [Duoneb 0.5 mg-3 mg/3 ml Soln] Potassium Chloride ER [K-Dur 20] 20 meq PO HS 05/03/23 05/10/24 History atenoloL [Tenormin] 50 mg PO HS 05/03/23 05/10/24 History Nitroglycerin Sl Tabs [Nitrostat] 0.4 mg SL Q5M PRN 06/09/23 05/10/24 History Atorvastatin [Lipitor] 80 mg PO HS 05/10/24 05/10/24 History HYDROcodone/APAP 5-325MG [[place] 1 tab PO Q6HR PRN 05/10/24 05/10/24 History 5-325] Immune Triple Support 1 tab PO HS 05/10/24 05/10/24 History Linaclotide [Linzess] 290 mcg PO HS PRN 05/10/24 05/10/24 History Magnesium Oxide [Mag-Ox] 400 mg PO HS 05/10/24 05/10/24 History amLODIPine [Norvasc] 10 mg PO HS 05/10/24 05/10/24 History methocarbamoL [Robaxin-750] 750 mg PO BID PRN 05/10/24 05/10/24 History traMADol HCl [Ultram] 50 mg PO BID PRN 05/10/24 05/10/24 History Allergies Allergy/AdvReac Type Severity Reaction Status Date / Time hydrocodone bitartrate AdvReac Nausea & Verified 05/10/24 13:24 [From Vicodin] Vomiting propoxyphene napsylate AdvReac Nausea & Verified 05/10/24 13:24 [From Darvocet-N 100] Vomiting Physical Exam Vitals: Vital Signs Temp Pulse Pulse Resp BP Pulse Ox 05/12/24 11:44 70 05/12/24 11:24 70 05/12/24 08:00 69 20 05/12/24 07:00 99.2 F 65 18 148/70 94 L 05/12/24 04:03 100.4 F H 81 152/73 90 L 05/12/24 02:00 101.7 F H 78 17 144/77 91 L 05/12/24 00:10 99.4 F 84 24 130/66 90 L 05/11/24 20:31 78 05/11/24 20:22 94 L 05/11/24 20:19 75 05/11/24 19:37 98.2 F 74 18 192/67 81 L 05/11/24 16:19 74 05/11/24 16:09 72 05/11/24 14:11 97.5 F L 65 16 139/70 92 L 05/11/24 13:05 63 131/63 Intake and Output 05/11/24 05/12/24 05/12/24 22:59 06:59 14:59 Intake Total 480 Balance 480 Intake: Oral 480 Other: Voiding Method Toilet # Voids 2 1 GENERAL DESCRIPTION: Elderly female lying in bed, no distress. No tachypnea or accessory muscle of respiration use. HEENT: Shows Pallor , no scleral icterus. Oral mucous membrane is dry. No pharyngeal erythema or thrush NECK: Trachea central, no thyromegaly. LUNGS: Unlabored breathing. Coarse breath sounds. No wheeze or crackle. HEART: S1, S2, regular rate and rhythm. No loud murmur ABDOMEN: Soft, no tenderness , guarding or rigidity, no organomegaly EXTREMITIES: No edema of feet. SKIN: No rash, no masses palpable. NEUROLOGICAL: The patient is awake, alert, oriented x3, mood and affect normal. Results CBC & Chem 7: 05/12/24 14:46 05/12/24 14:46 Labs: Abnormal Lab Results - Last 24 Hours (Table) 05/11/24 05/12/24 Range/Units 11:42 06:01 D-Dimer 1.56 H (<0.60) mg/L FEU ABG HCO3 27 H (21-25) mmol/L ABG Total CO2 28 H (19-24) mmol/L ABG O2 Saturation 97.5 H (94-97) % Assessment and Plan (1) Fever Current Visit: Yes Status: Acute Code(s): R50.9 - FEVER, UNSPECIFIED SNOMED Code(s): 137933452 (2) Leukocytosis Current Visit: Yes Status: Acute Code(s): D72.829 - ELEVATED WHITE BLOOD CELL COUNT, UNSPECIFIED SNOMED Code(s): 468869444 Plan: 1patient with fever in this patient presented to hospital mostly with the chest/upper back pain and did have a history thoracic T6 compression fracture subsequent developing a fever did have mostly sore throat and some chest congestion though initial CT angiogram of the chest did not mention any consolidation with a question of possible viral syndrome versus urinary source. 2we will check a UA and culture and check influenza RSV and COVID PCR and follo w-up on the blood culture results 3-continue with empiric Rocephin while waiting for the workup to be completed We will follow on clinical condition and cultures to further adjust medication if needed Thank you for this consultation we will follow the patient along with you Dictation was produced using [employer] dictation software. please excuse any grammatical, word or spelling errors. Time with Patient: Greater than 30
--- NOTE | 2024-05-13 09:55 | P.PN ---
Subjective Progress Note Date: 05/13/24 Principal diagnosis: Altered mental status likely related to narcotics as well as Klonopin Obstructive pulmonary disease not in exacerbation, Spiking fever of 102, suspect UTI/urinary tract infection Back pain with compression fracture of T6 patient Acute on chronic hypoxic respiratory failure May 13/2024, patient seen examined awake and alert, slightly tremulous, p atient is being monitored on adjusted dose of narcotics and benzodiazepine,, neurology evaluating the patient from respiratory standpoint patient remains on 3 L along with bronchodilator DuoNeb as well as aerosolized steroids. Patient being continued on IV Rocephin., Urine analysis report reviewed fairly within normal limit no source of infection identified, noted ID is on consult 68-year-old female seen evaluate examined on medical floor due to oxygen dependent COPD, patient was admitted to the hospital with severe degree of back pain which is acute on chronic, patient has prior workup with MRI of the spine significant for T6 compression fracture for the last few days she has started having back pain chest pain came into the hospital for further evaluation. Patient has oxygen dependent COPD takes bronchodilator and inhalers this morning patient was unresponsive stat recommendation was requested from staff arterial blood gas was checked no significant hypercapnia was noted ABG was fairly within normal limit on 3 L noted that patient not only on pain medicine but also on benzodiazepine with Klonopin 3 times a day. Chest x-ray chronic pulmonary changes. CT scan of the chest no dissection seen, cardiomegaly interstitial edema, coronary arthrosclerosis, medial prominence of lymph node with likely suggestive of CHF. Tmax was one 1.7 now Tmax is 99 today saturation 94% on 3 L, CBC within normal limit, chemistry BUN/creatinine 18/1.19, D-dimer 1.56, ABG 7 point 4/43/94 on 3 L oxygen, urine cultures not done. Meds include chronic pain meds along with DuoNeb, antihypertensive, IV Rocephin, Lasix, hydralazine, and Klonopin 1 mg 3 times a day regimen Objective - Vital Signs Vital signs: Vital Signs Temp 98.0 F 05/13/24 07:32 Pulse 62 05/13/24 08:30 Resp 17 05/13/24 07:32 BP 123/71 05/13/24 07:32 Pulse Ox 98 05/13/24 07:32 FiO2 Intake & Output 05/12/24 05/13/24 05/13/24 18:59 06:59 18:59 Intake Total 240 240 118 Balance 240 240 118 Intake: Oral 240 240 118 Other: Voiding Method Toilet Bedside Commode # Voids 1 1 - Exam - Constitutional General appearance: average body habitus, cooperative, disheveled - EENT Eyes: EOMI, PERRLA Ears: bilateral: normal - Neck Neck: normal ROM Carotids: bilateral: upstroke normal Thyroid: bilateral: normal size - Respiratory Respiratory: bilateral: CTA - Cardiovascular Rhythm: regular Heart sounds: normal: S1, S2 - Gastrointestinal General gastrointestinal: normal bowel sounds - Integumentary Integumentary: normal turgor - Neurologic Neurologic: CNII-XII intact - Musculoskeletal Musculoskeletal: gait normal, generalized weakness, strength equal bilaterally - Psychiatric Psychiatric: A&O x's 3, appropriate affect, intact judgment & insight - Labs CBC & Chem 7: 05/12/24 14:46 05/12/24 14:46 Labs: Abnormal Lab Results - Last 24 Hours (Table) 05/12/24 05/12/24 05/12/24 Range/Units 14:28 14:46 14:46 WBC 11.5 H (3.8-10.6) k/uL Neutrophils # 9.8 H (1.3-7.7) k/uL Lymphocytes # 0.7 L (1.0-4.8) k/uL BUN 33 H (7-17) mg/dL Creatinine 2.02 H (0.52-1.04) mg/dL C-Reactive Protein (0.00-0.80) mg/dL Procalcitonin (0.02-0.50) ng/mL Urine Protein 2+ H (Negative) Urine Glucose (UA) 3+ H (Negative) 05/13/24 05/13/24 Range/Units 04:49 04:49 WBC (3.8-10.6) k/uL Neutrophils # (1.3-7.7) k/uL Lymphocytes # (1.0-4.8) k/uL BUN (7-17) mg/dL Creatinine (0.52-1.04) mg/dL C-Reactive Protein 16.30 H (0.00-0.80) mg/dL Procalcitonin 1.25 H (0.02-0.50) ng/mL Urine Protein (Negative) Urine Glucose (UA) (Negative) Assessment and Plan Assessment: Altered mental status likely related to Klonopin 1 mg 3 times a day as well as narcotics would recommend to lower it down to reduce dose Obstructive pulmonary disease not in exacerbation, continue bronchodilator and inhaled aerosolized steroids Spiking fever of 102, source of fever is not clear ID has been following continue Rocephin Back pain with compression fracture of T6 patient is being considered for kyphoplasty Plan: Adjust narcotics and benzodiazepine to avoid excessive somnolent affect Continue IV antibiotics Bronchodilator Reviewed reports of urine analysis Patient will likely need sleep study as outpatient Overall patient is being considered for kyphoplasty of T6, patient does have end-stage COPD however given the severity of pain and complication associated with T6 vertebra would recommend to proceed with the surgery however would be very watchful during farzana and postoperative, to avoid complication like pneumonia and atelectasis and ventilatory support which she has at risk higher than usual Time with Patient: Greater than 30
--- NOTE | 2024-05-13 11:14 | P.PN ---
Subjective HISTORY OF PRESENT ILLNESS: 05/11/2024 This is a 68-year-old female patient with a past medical history significant for CAD with prior vascularization as well as PAD with prior vascularization as well as hypertension and dyslipidemia and chronic pain presented to the hospital complaining of upper back pain and chest discomfort. She is known to have chronic back pain. She was noted to have T6 fracture on the MRI was performed in the past. She presented back to the hospital complaining of upper back discomfort appears to be somewhat reproducible on examination and she states also that she did have some discomfort in the chest radiating from her back. No upper extremities discomfort. No shortness of breath or dizziness or lightheadedness or any feeling of heart racing or fluttering or any presyncope or syncope or edema in the lower extremities. The patient is known to have chronic pain. She underwent in the office recently a stress test and echocardiogram the details are unavailable at this point. During this admission she underwent a workup including an EKG showing sinus mechanism with no significant ST or T wave abnormalities. She underwent also further cardiac evaluation including cardiac enzymes came in to be unremarkable with CT scan of the chest did not show any acute abnormalities as well. Currently she is chest pain-free but she continues to have upper back discomfort appears to be somewhat reproducible on examination. The physical examination is remarkable for regular rhythm with a soft systolic murmur at the right upper sternal border with clear breathing sounds bilaterally and no edema was noted in the lower extremities 05/12/2024 Patient examined this morning at the bedside. Per nursing, patient became confused and agitated last night. She was given Seroquel. Patient was also febrile overnight with a temperature of 101.7. Patient is obtunded this morning. Telemetry reveals sinus mechanism. 05/13/2024 Patient examined this morning the bedside. Patient's mentation has improved. She is back to her baseline. She denies any chest pain or pressure. Denies any shortness of breath. She is afebrile this morning. 2D echo remains pending. PHYSICAL EXAM: VITAL SIGNS: Reviewed. GENERAL: Well-developed in no acute distress. NECK: Supple. No JVD or thyromegaly LUNGS: Respirations even and unlabored. Lungs essentially clear to auscultation bilaterally. HEART: Regular rate and rhythm. S1 and S2 heard. EXTREMITIES: Normal range of motion. No clubbing or cyanosis. Peripheral pulses intact. No lower extremity edema ASSESSMENT: Chest pain, acute coronary syndrome ruled out Back pain/subacute T6 compression fracture Altered mental status, etiology unclear Fever History of coronary artery disease History of peripheral arterial disease Hypertension Hyperlipidemia PLAN: Awaiting 2D echo. No recent stress test is available at the cardiology office. There is possibility that stress test has been taken but not finalized yet. However, no plans for inpatient stress testing due at this time. Continue telemetry monitoring to assess for any arrhythmias No further inpatient recommendations from a cardiac standpoint Further recommendations pending patient course Nurse practitioner note has been reviewed by physician. Signing provider agrees with the documented findings, assessment, and plan of care documented by [employer] as a scribe. Objective - Vital Signs Vital signs: Vital Signs Temp 98.0 F 05/13/24 07:32 Pulse 62 05/13/24 08:30 Resp 17 05/13/24 07:32 BP 123/71 05/13/24 07:32 Pulse Ox 98 05/13/24 07:32 FiO2 Intake & Output 05/12/24 05/13/24 05/13/24 18:59 06:59 18:59 Intake Total 240 240 118 Balance 240 240 118 Intake: Oral 240 240 118 Other: Voiding Method Toilet Bedside Commode # Voids 1 1 - Labs CBC & Chem 7: 05/12/24 14:46 05/12/24 14:46 Labs: Abnormal Lab Results - Last 24 Hours (Table) 05/12/24 05/12/24 05/12/24 Range/Units 14:28 14:46 14:46 WBC 11.5 H (3.8-10.6) k/uL Neutrophils # 9.8 H (1.3-7.7) k/uL Lymphocytes # 0.7 L (1.0-4.8) k/uL BUN 33 H (7-17) mg/dL Creatinine 2.02 H (0.52-1.04) mg/dL C-Reactive Protein (0.00-0.80) mg/dL Procalcitonin (0.02-0.50) ng/mL Urine Protein 2+ H (Negative) Urine Glucose (UA) 3+ H (Negative) 05/13/24 05/13/24 Range/Units 04:49 04:49 WBC (3.8-10.6) k/uL Neutrophils # (1.3-7.7) k/uL Lymphocytes # (1.0-4.8) k/uL BUN (7-17) mg/dL Creatinine (0.52-1.04) mg/dL C-Reactive Protein 16.30 H (0.00-0.80) mg/dL Procalcitonin 1.25 H (0.02-0.50) ng/mL Urine Protein (Negative) Urine Glucose (UA) (Negative)
--- NOTE | 2024-05-13 12:30 | CA ---
Transthoracic Echo Report Name: Gianna Dale Age: 68 Gender: F : 1955 Exam Date: 05/13/2024 08:36 Exam Location: [facility] Ht (in): 59 Wt (lb): 150 Ordering Physician: Olesya Griffin Attending/Referring Phys: [id number], Elias [employer] Technician Andie Coffey RDCS Procedure CPT: Indications: LV function, CP, altered mental status Cardiac Hx: Technical Quality: Fair Contrast 1: Total Dose (mL): Contrast 2: Total Dose (mL): MEASUREMENTS (Male / Female) Normal Values 2D ECHO LV Diastolic Diameter PLAX 4.1 cm 4.2 - 5.9 / 3.9 - 5.3 cm LV Systolic Diameter PLAX 2.8 cm IVS Diastolic Thickness 1.1 cm 0.6 - 1.0 / 0.6 - 0.9 cm LVPW Diastolic Thickness 1.1 cm 0.6 - 1.0 / 0.6 - 0.9 cm LV Relative Wall Thickness 0.5 RV Internal Dim ED PLAX 3.0 cm LA Volume 66.6 cm??? 18 - 58 / 22 - 52 cm??? LA Volume Index 38.9 cm???/m??? 16 - 28 cm???/m??? M-MODE Aortic Root Diameter MM 2.6 cm LA Systolic Diameter MM 4.4 cm LA Ao Ratio MM 1.7 AV Cusp Separation MM 1.9 cm DOPPLER AV Peak Velocity 170.9 cm/s AV Peak Gradient 11.7 mmHg AV Mean Velocity 112.2 cm/s AV Mean Gradient 5.7 mmHg AV Velocity Time Integral 34.2 cm LVOT Peak Velocity 152.4 cm/s LVOT Peak Gradient 9.3 mmHg LVOT Velocity Time Integral 29.1 cm MV Area PHT 3.5 cm??? Mitral E Point Velocity 99.7 cm/s Mitral A Point Velocity 75.9 cm/s Mitral E to A Ratio 1.3 MV Deceleration Time 219.5 ms MV E' Velocity 4.6 cm/s Mitral E to MV E' Ratio 21.7 FINDINGS Left Ventricle Mildly increased left ventricular wall thickness. Left ventricular cavity size normal. No obvious regional wall motion abnormalities. Left ventricular ejection fraction is estimated at 55-60 %. Grade 1 diastolic dysfunction. Right Ventricle Normal right ventricular size and function. Right ventricular systolic pressure within normal limits. Right Atrium Normal right atrial size. Left Atrium Moderately increased left atrial volume. Mildly increased left atrial area. Mitral Valve Structurally normal mitral valve. Mitral valve thickened. Mild mitral annular calcification. [id number] mitral regurgitation. Aortic Valve Trileaflet aortic valve. No aortic stenosis. Trace to mild aortic regurgitation. Tricuspid Valve Structurally normal tricuspid valve. Mild tricuspid regurgitation. Pulmonic Valve Structurally normal pulmonic valve. Pericardium No pericardial effusion. Echo free space anterior to the right ventricle likely represents a fat pad. Aorta Normal size aortic root and proximal ascending aorta. CONCLUSIONS Normal LV function Mild to moderate mitral regurgitation Previewed by: Dr. Jerrod Christianson MD (Electronically Signed) Final Date: 13 May 2024 12:28
--- NOTE | 2024-05-13 12:33 | P.PN ---
Subjective Progress Note Date: 05/13/24 Principal diagnosis: Reason for follow-up is fever possible pneumonia Patient is a 68-year-old female with a past medical history significant for coronary artery disease COPD DVT fibromyalgia reflux hypertension hyperlipidemia osteoarthritis presenting to the hospital with chest pain which is mostly pain in her mid back and some radiation to the chest and this patient did have a history of T6 compression fracture and is being evaluated by Ortho did spike a fever prompting this consultation. On today's evaluation that is 05/13/2024,the patient did have resolution of her fever and is afebrile this morning, patient is breathing comfortably on 4 L nasal cannula oxygen, the patient denies chest pain shortness of breath did have a cough but not bring up any sputum, patient denies abdominal pain, no nausea vomiting or diarrhea. Patient did not have any CBC done today her CRP 16.30 and procalcitonin 1.25 influenza RSV COVID testing was negative blood cultures are pending Objective - Vital Signs Vital signs: Vital Signs Temp 98.0 F 05/13/24 07:32 Pulse 62 05/13/24 08:30 Resp 17 05/13/24 07:32 BP 123/71 05/13/24 07:32 Pulse Ox 98 05/13/24 07:32 FiO2 Intake & Output 05/12/24 05/13/24 05/13/24 18:59 06:59 18:59 Intake Total 240 240 118 Balance 240 240 118 Intake: Oral 240 240 118 Other: Voiding Method Toilet Bedside Commode # Voids 1 1 - Exam GENERAL DESCRIPTION: An elderly female lying in bed in no distress RESPIRATORY SYSTEM: Unlabored breathing , decreased breath sounds at bases HEART: S1 S2 regular rate and rhythm , ABDOMEN: Soft , no tenderness EXTREMITIES: No edema feet - Labs CBC & Chem 7: 05/12/24 14:46 05/12/24 14:46 Labs: Abnormal Lab Results - Last 24 Hours (Table) 05/12/24 05/12/24 05/12/24 Range/Units 14:28 14:46 14:46 WBC 11.5 H (3.8-10.6) k/uL Neutrophils # 9.8 H (1.3-7.7) k/uL Lymphocytes # 0.7 L (1.0-4.8) k/uL BUN 33 H (7-17) mg/dL Creatinine 2.02 H (0.52-1.04) mg/dL C-Reactive Protein (0.00-0.80) mg/dL Procalcitonin (0.02-0.50) ng/mL Urine Protein 2+ H (Negative) Urine Glucose (UA) 3+ H (Negative) 05/13/24 05/13/24 Range/Units 04:49 04:49 WBC (3.8-10.6) k/uL Neutrophils # (1.3-7.7) k/uL Lymphocytes # (1.0-4.8) k/uL BUN (7-17) mg/dL Creatinine (0.52-1.04) mg/dL C-Reactive Protein 16.30 H (0.00-0.80) mg/dL Procalcitonin 1.25 H (0.02-0.50) ng/mL Urine Protein (Negative) Urine Glucose (UA) (Negative) Assessment and Plan (1) Fever Current Visit: Yes Status: Acute Code(s): R50.9 - FEVER, UNSPECIFIED SNOMED Code(s): 962644770 (2) Leukocytosis Current Visit: Yes Status: Acute Code(s): D72.829 - ELEVATED WHITE BLOOD CELL COUNT, UNSPECIFIED SNOMED Code(s): 021961352 Plan: 1patient with fever in this patient presented to hospital mostly with the tyree st/upper back pain and did have a history thoracic T6 compression fracture subsequent developing a fever did have mostly sore throat and some chest congestion though initial CT angiogram of the chest did not mention any consolidation with a question of possible viral syndrome versus urinary source. 2patient did have a negative influenza RSV and COVID PCR, UA has been negative did have elevated procalcitonin 3-patient to continue with empiric Rocephin while waiting for the culture to finalize Dictation was produced using [employer] dictation software. please excuse any grammatical, word or spelling errors. Time with Patient: Less than 30
--- NOTE | 2024-05-13 14:08 | P.PN ---
Progress Note - Text Progress Note Date: 05/13/24 The patient is seen and examined today at bedside in regards to her T6 compression fracture. She says she still has pain when she is up and around but she is doing a little bit better with the [place]. She is no longer requiring the Dilaudid. She is not having any new pains and is mobilizing slightly better. She does not yet have her TLSO brace but it is scheduled to arrive today. On exam she is afebrile. Stable vital signs. At her back there is no open wounds lacerations or abrasions. There is no specific tenderness but she has some global tenderness around her mid thoracic. Her lower extremities have sustained dorsiflexion plantarflexion EHL intact calves and thighs soft nontender. Assessment and plan Subacute T6 compression fracture without neurologic loss Osteoporosis Thoracic back pain due to fracture Fevers Chronic COPD In regards to the patient's compression fracture we had a long discussion today at bedside. We discussed possibly of surgical intervention with kyphoplasty or the possibility of continuing conservative treatment with bracing. Her brace is scheduled to arrive today and she should wear whenever she is out of bed. She says she is comfortable when she is in bed and sitting with her pain medications. She understands that she would be at increased risk due to her pulmonary status if she were to undergo surgery and she would like to hold off and see if she is able to manage the pain adequately with oral medications and the brace for now. I think that is reasonable. I think that her fracture has potentially healed given a bit more time but may take 6 to 12 weeks to stabilize and we discussed that at length today. For now we will continue with conservative treatment and have her mobilize further with the brace intact and with oral medications as needed. From an orthopedic spine standpoint is okay for the patient to discharge home when she has her brace. She has a follow-up scheduled for later this week and we can follow her up in the office for repeat evaluation imaging and to discuss further treatment whether continuing treatment with bracing or the possibly of surgical intervention with kyphoplasty. If she is to undergo surgical intervention she would need clearance from pulmonary medicine.
--- NOTE | 2024-05-13 16:12 | P.PN ---
Subjective Progress Note Date: 05/13/24 I am following-up with patient and no further episodes of confusion. It seems per nurse she was getting [place], Dilaudid and Klonopin. Objective - Vital Signs Vital signs: Vital Signs Temp 98.3 F 05/13/24 14:00 Pulse 72 05/13/24 14:00 Resp 16 05/13/24 14:00 BP 113/64 05/13/24 14:00 Pulse Ox 99 05/13/24 14:00 FiO2 Intake & Output 05/12/24 05/13/24 05/13/24 18:59 06:59 18:59 Intake Total 240 240 236 Balance 240 240 236 Intake: Oral 240 240 236 Other: Voiding Method Toilet Bedside Commode # Voids 1 1 - Exam GENERAL: The patient is sitting up in bed and is not in acute distress. NEUROLOGICAL: Higher mental function: The patient is awake, alert, oriented to self, place and time. Patient is following simple commands. No aphasia and no neglect. Cranial nerves: The pupils are round, equal and reactive to light and accommodation. Visual dominguez are full to confrontation throughout. Extraocular movement is intact no nystagmus is noted. Facial sensation is normal to touch throughout. The facial strength is normal throughout. Hearing is normal bilaterally to hand rub. Tongue is midline and moved [id number] without any difficulty. No dysarthria is noted. Shoulder shrug is normal bilaterally. Motor: The strength is 5 over 5 throughout. Normal tone and bulk. Cerebellum: Normal finger to nose bilaterally. Sensation: Sensation is normal to touch throughout. Reflexes (right/left): 2+ throughout. Plantars are downgoing bilaterally. Some of the workup during this hospital visit consisted of: White blood cell is 7.6 on presentation which is within normal limits. Calcium is 8.6, magnesium is 1.8, sodium is 138, initial serum glucose is 89. Plasma lactic acid vein on presentation is 1.6. Patient has subacute T8 6 compression fracture without neurological deficit and orthopedic team is consulted. Patient also has pathological fracture due to osteoporosis T6. CT head: Is negative for acute intracranial process. - Labs CBC & Chem 7: 05/12/24 14:46 05/12/24 14:46 Labs: Abnormal Lab Results - Last 24 Hours (Table) 11/04/24 11/05/24 11/05/24 Range/Units 14:28 04:49 04:49 C-Reactive Protein 16.30 H (0.00-0.80) mg/dL Procalcitonin 1.25 H (0.02-0.50) ng/mL Urine Protein 2+ H (Negative) Urine Glucose (UA) 3+ H (Negative) Microbiology - Last 24 Hours (Table) 05/12/24 05:02 Blood Culture - Preliminary Blood Assessment and Plan Assessment: This is a 68-year-old woman who presents because of worsening middle back pain. 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 Episode of confusion and I suspect it is due to pyrexia seems suspicious for sepsis of unknown origin and medication effection (opiates/sedatives)--confusion has resolved. CT head is negative for acute process Worsening middle back pain Subacute T6 compression fracture and it seems the fracture was felt due to pathological osteoporosis History of coronary artery disease post stent History of hypertension Diverticulitis History of pulmonary fibrosis History of DVT. History of COPD Plan: If possible avoid sedative or opiates and if not possible then minimize dose. Infection disease is consulted Has blood culture ordered. Orthopedic surgery team is consulted Cardiology team is consulted Pulmonary team is consulted Will defer the rest of the medical management the primary and other specialist The plan discussed with the patient and her nurse. Will follow-up sporadically. Time with Patient: Less than 30
--- NOTE | 2024-05-13 18:42 | P.PN ---
Progress Note - Text Progress Note Date: 05/13/24 Pt has been cleared for surgery from a pulmonary standoint as per their consultation. Pt is now interested in pursuing surgery with Kyphoplasty at T6 due to her continued pain without relief from conservative treatment. We have discussed the surgery, the risks , complications, alternatives and benefits at length. I have answered her questions and she will sign an informed consent for T6 vertebral biopsy and kyphoplasty. we will plan to proceed with surgery Sunday.
--- NOTE | 2024-05-14 01:21 | PN ---
PROGRESS NOTE SUBJECTIVE: A 68-year-old with severe back pain around T8 level. She was supposed to get vertebroplasty tomorrow by Dr. Sosa. Discussed with him. Cleared by Pulmonary, Cardiology. She is stable, sitting in bed, giving appropriate answers, having no difficulties with confusion. OBJECTIVE: CARDIOVASCULAR: S1, S2. LUNGS: Clear. She is on room air. Cleared for surgery due to retracting pain for last month, for vertebroplasty tomorrow. Prognosis guarded. Ambulate as tolerated. Please see further orders. MMODL / IJN: [id number] /
[2024-05-14] MEDS: SODIUM CHLORIDE 0.9% 1,000 ML IV SCH (05:39)
--- NOTE | 2024-05-14 10:06 | MR ---
EXAMINATION TYPE: MR thoracic spine wo con DATE OF EXAM: 05/14/2024 9:46 AM COMPARISON: None. CLINICAL INDICATION: Female, 68 years old with history of compression fracture, compression fracture TECHNIQUE: Multiplanar, multiecho imaging on a 3.0 Maxine magnet is performed through the thoracic spi ne. IV Contrast: mL (None, if empty) FINDINGS: Spinal cord maintains normal signal through its visualized course. Vertebral body alignment is normal. Compression deformity of T6 is again evident and appears stable from comparison. No posterior wall di splacement is evident. There is mild superior endplate change at T4 which appear similar to [place]. S ome mild interval T5 compression may be present with signal changes within the vertebral body. No pos terior wall displacement is evident. Disc heights are preserved. Disc hydration levels are preserved. No spinal canal stenosis is evident. IMPRESSION: 1. Some minimal new compression of T5 may be present. No posterior wall displacement evident. 2. Old compression deformities of T4 and T6 without posterior wall displacement. [facility], , 05/14/2024 10:04 AM
--- NOTE | 2024-05-14 11:23 | P.PN ---
Subjective Progress Note Date: 05/14/24 Principal diagnosis: Reason for follow-up is fever possible pneumonia Patient is a 68-year-old female with a past medical history significant for coronary artery disease COPD DVT fibromyalgia reflux hypertension hyperlipidemia osteoarthritis presenting to the hospital with chest pain which is mostly pain in her mid back and some radiation to the chest and this patient did have a history of T6 compression fracture and is being evaluated by Ortho did spike a fever prompting this consultation. On today's evaluation that is 05/14/2024,the patient remains to be afebrile, patient is on 2 L nasal cannula supplemental oxygen and denies any shortness of breath no chest pain still having cough but not bringing up any sputum.Patient denies having any nausea or vomiting, no abdominal pain and no diarrhea has been reported, main symptom remains to be upper/mid back pain. No new lab has been repeated today blood culture have been negative so far Objective - Vital Signs Vital signs: Vital Signs Temp 98.0 F 05/14/24 07:24 Pulse 63 05/14/24 07:24 Resp 18 05/14/24 07:24 BP 136/60 05/14/24 07:24 Pulse Ox 99 05/14/24 07:24 FiO2 Intake & Output 05/13/24 05/14/24 05/14/24 18:59 06:59 18:59 Intake Total 354 Balance 354 Intake: Oral 354 Other: Voiding Method Bedside Commode # Voids 4 2 - Exam GENERAL DESCRIPTION: An elderly female lying in bed in no distress RESPIRATORY SYSTEM: Unlabored breathing , decreased breath sounds at bases HEART: S1 S2 regular rate and rhythm , ABDOMEN: Soft , no tenderness EXTREMITIES: No edema feet - Labs CBC & Chem 7: 05/12/24 14:46 05/12/24 14:46 Labs: Microbiology - Last 24 Hours (Table) 05/12/24 05:02 Blood Culture - Preliminary Blood Assessment and Plan (1) Fever Current Visit: Yes Status: Acute Code(s): R50.9 - FEVER, UNSPECIFIED SNOMED Code(s): 405934720 (2) Leukocytosis Current Visit: Yes Status: Acute Code(s): D72.829 - ELEVATED WHITE BLOOD CELL COUNT, UNSPECIFIED SNOMED Code(s): 374054705 Plan: 1patient with fever in this patient presented to hospital mostly with the tyree st/upper back pain and did have a history thoracic T6 compression fracture subsequent developing a fever did have mostly sore throat and some chest congestion though initial CT angiogram of the chest did not mention any consolidation with a question of possible viral syndrome versus urinary source. 2patient did have a negative influenza RSV and COVID PCR, UA has been negative did have elevated procalcitonin 3-patient did have resolution of the fever white count was trending down continue with Rocephin did have a repeat MRI with evidence of T6 compression fraction with some involvement of the other vertebra possible plan is for kyphoplasty will recommend taking biopsy as well as culture at the time of procedure Dictation was produced using [employer] dictation software. please excuse any gramm atical, word or spelling errors. Time with Patient: Less than 30
--- NOTE | 2024-05-14 12:20 | P.PN ---
Subjective HISTORY OF PRESENT ILLNESS: 05/11/2024 This is a 68-year-old female patient with a past medical history significant for CAD with prior vascularization as well as PAD with prior vascularization as well as hypertension and dyslipidemia and chronic pain presented to the hospital complaining of upper back pain and chest discomfort. She is known to have chronic back pain. She was noted to have T6 fracture on the MRI was performed in the past. She presented back to the hospital complaining of upper back discomfort appears to be somewhat reproducible on examination and she states also that she did have some discomfort in the chest radiating from her back. No upper extremities discomfort. No shortness of breath or dizziness or lightheadedness or any feeling of heart racing or fluttering or any presyncope or syncope or edema in the lower extremities. The patient is known to have chronic pain. She underwent in the office recently a stress test and echocardiogram the details are unavailable at this point. During this admission she underwent a workup including an EKG showing sinus mechanism with no significant ST or T wave abnormalities. She underwent also further cardiac evaluation including cardiac enzymes came in to be unremarkable with CT scan of the chest did not show any acute abnormalities as well. Currently she is chest pain-free but she continues to have upper back discomfort appears to be somewhat reproducible on examination. The physical examination is remarkable for regular rhythm with a soft systolic murmur at the right upper sternal border with clear breathing sounds bilaterally and no edema was noted in the lower extremities 05/12/2024 Patient examined this morning at the bedside. Per nursing, patient became confused and agitated last night. She was given Seroquel. Patient was also febrile overnight with a temperature of 101.7. Patient is obtunded this morning. Telemetry reveals sinus mechanism. 05/13/2024 Patient examined this morning the bedside. Patient's mentation has improved. She is back to her baseline. She denies any chest pain or pressure. Denies any shortness of breath. She is afebrile this morning. 2D echo remains pending. 05/14/2024 Patient examined this morning the bedside. Patient denies chest pain or pressure. She denies shortness of breath. Vital signs are stable. Echocardiogram completed revealing ejection fraction 55 to 60%, mild to moderate MR, trace to mild AR, mild TR. PHYSICAL EXAM: VITAL SIGNS: Reviewed. GENERAL: Well-developed in no acute distress. NECK: Supple. No JVD or thyromegaly LUNGS: Respirations even and unlabored. Lungs essentially clear to auscultation bilaterally. HEART: Regular rate and rhythm. S1 and S2 heard. EXTREMITIES: Normal range of motion. No clubbing or cyanosis. Peripheral pulses intact. No lower extremity edema ASSESSMENT: Chest pain, acute coronary syndrome ruled out Back pain/subacute T6 compression fracture Altered mental status, etiology unclear Fever History of coronary artery disease History of peripheral arterial disease Hypertension Hyperlipidemia PLAN: 2D echo obtained and reviewed No further inpatient recommendations from a cardiac standpoint We will sign off. Please reconsult if needed. Nurse practitioner note has been reviewed by physician. Signing provider agrees with the documented findings, assessment, and plan of care documented by DRUG AND ALCOHOL TREATMENT SPECIALIST as a scribe. Objective - Vital Signs Vital signs: Vital Signs Temp 98.0 F 05/14/24 07:24 Pulse 63 05/14/24 07:24 Resp 18 05/14/24 08:00 BP 136/60 05/14/24 07:24 Pulse Ox 99 05/14/24 07:24 FiO2 Intake & Output 05/13/24 05/14/24 05/14/24 18:59 06:59 18:59 Intake Total 354 Balance 354 Intake: Oral 354 Other: Voiding Method Bedside Commode # Voids 4 2 - Labs CBC & Chem 7: 05/12/24 14:46 05/12/24 14:46 Labs: Microbiology - Last 24 Hours (Table) 05/12/24 05:02 Blood Culture - Preliminary Blood
[2024-05-14] MEDS: IV FLUID CONTINUATION 1,000 ML IV ONE (17:05)
[2024-05-14] MEDS: DEXAMETHASONE SOD PHOSPHATE 4 MG/ML 1 ML VIAL IVP STA (17:36)
[2024-05-14] MEDS: ONDANSETRON 4 MG/2 ML VIAL IVP STA (17:37)
[2024-05-14] MEDS: MIDAZOLAM 2 MG/2 ML VIAL IV ONE (17:37)
[2024-05-14] MEDS: SODIUM CHLORIDE 0.9% 50 ML with ceFAZolin 2,000 MG IV ONE (17:54)
[2024-05-14] MEDS ORDERED: ePHEDrine 50 MG/ML 1 ML VIAL ONE (17:55)
[2024-05-14] MEDS ORDERED: LIDOCAINE 1% INJ 10MG/ML (20 ML MDV) ONE (17:55)
[2024-05-14] MEDS ORDERED: PHENYLEPHRINE 10 MG/ML VIAL ONE (17:55)
[2024-05-14] MEDS ORDERED: GLYCOPYRROLATE 0.2 MG/ML 2 ML VIAL ONE (17:55)
[2024-05-14] MEDS ORDERED: ROCURONIUM 10 MG/ML (5 ML VIAL) IV ONE (17:55)
[2024-05-14] MEDS ORDERED: fentaNYL (PF) 50 MCG/ML 2 ML AMP ONE (17:55)
[2024-05-14] MEDS ORDERED: ceFAZolin 1 GM/50 ML BAG (PMX) ONE (17:55)
[2024-05-14] MEDS ORDERED: PROPOFOL 10 MG/ML 20 ML VIAL IV ONE (17:55)
[2024-05-14] MEDS ORDERED: SUCCINYLCHOLINE CHLORIDE 200 MG/10 ML VIAL IV ONE (17:55)
[2024-05-14] MEDS: LIDOCAINE 1%-EPI 1:100,000 20 ML VIAL SQ ONE (18:23)
[2024-05-14] MEDS: IOPAMIDOL M200 10 ML VIAL MISCELLANE ONE (18:33)
--- NOTE | 2024-05-14 18:51 | P.OP ---
Date of Procedure: 05/14/24 Preoperative Diagnosis: T6 subacute osteoporotic compression fracture, failed conservative treatment Postoperative Diagnosis: Same Anesthesia: GETA Pathology: other (T6 vertebral body biopsy to pathology) Condition: stable Disposition: PACU Description of Procedure: BRIEF OPERATIVE NOTE Preoperative Diagnosis: T6 subacute osteoporotic compression fracture, failed conservative treatment Postoperative Diagnosis: Same Procedure: Kyphoplasty T6 Vertebral body biopsy T6 Use of biplanar fluoroscopic guidance Surgeon: Dr. Sosa Academic Computing Director: Jd AUGUSTIN who is present throughout the entire the case persistence during positioning, dissection, exposure, visualization, and all crucial elements of the case as well as closure. Anesthesia: General anesthesia Estimated blood loss: Less than 10 mL Specimen: Vertebral body of T6 biopsy sent to pathology in formalin Complications: None apparent Components implanted: Bone cement approximately 5 cc Disposition: To recovery room in good stable condition. OPERATIVE INDICATIONS The patient has been having issues in their back ever since sustaining an injury in the beginning of April. She had new pain in her mid upper back between her shoulder blades. She was trying to do treatment with conservative treatment and medication but she was not having any significant benefit. She thought that she was starting to have chest pain and was actually admitted to the hospital in this regard. She was ruled out for any significant cardiac issues but does have a long history of COPD. They felt that the pain was stemming from the T6 subacute compression fracture. She was not having any apparent neurologic deficit. Her cardiac status was cleared and she was also cleared by pulmonary medicine in terms of her COPD for the possibly of surgery. The patient has been through conservative treatment. They attempted conservative care with bracing however they're not having any benefit despite brace use. They continue to have significant pain and debility due to their fracture. We discussed various treatment options including surgery, and the patient wishes to proceed with surgery We discussed the risk, patient's alternatives and benefits of surgery including but not limited to, risk of bleeding risk of infection, risk of need for further surgery, risk of decreased, loss of motion, loss of function, cement extravasation, nerve damage, paralysis, heart attack, blindness and . OPERATIVE SUMMARY After discussing all the risks, patient alternatives and benefits at length, the patient elected to proceed with surgical intervention, signed informed consent, and presented for their procedure. The patient was seen and examined in the preoperative holding area and the surgical site was marked. The patient was given antibiotics and brought to the operating room. The patient was sedated and intubated by anesthesia in standard fashion. The patient was positioned on to the operating room table in a prone position on the appropriate well-padded and well molded bilateral chest rolls. We were careful to pad any bony prominences and pressure points. We were careful to maintain the patient's cervical spine and good neutral alignment and position throughout. We used 2 C-arm machines to establish biplanar fluoroscopic guidance in AP and lateral positions. We were able to localize the fractures appropriately at T6. The patient was prepped and draped in a normal standard fashion. An appropriate timeout and keystone protocol performed. We were able to proceed with the surgery. The local wound area was infiltrated with local anesthetic. An incision was made over the lateral aspect of the pedicle over the appropriate levels with a small 2 mm stab incision bilaterally. Intraoperative fluoroscopy was taken which showed a marker at the appropriate level. With the appropriate level positively confirmed, I was able to position a sharp trocar over the lateral aspect of the pedicle. As able to advance the trocar into the pedicle and into the posterior aspect of vertebral body being careful to avoid penetration cephalad caudad or medially. The trocar was placed appropriately into the posterior aspect of vertebral body at the appropriate levels of T6. This was confirmed with C-arm guidance. With the trocar in tact bilaterally at T6 I was then able to take a bone biopsy with a biopsy punch or a bony drill. The biopsy specimen was passed off to be sent to pathology in formalin. I was then able to place the kyphoplasty balloon within the vertebral body. The position was checked on C-arm. I was able to inflate the balloon under low pressure and visualization with C-arm. The balloon was well enclosed within the vertebral body at both sites. The cement was prepared. With the cement at appropriate working condition the balloons were deflated and removed. I was able to place bony cement with trocar with the cement delivery device under low pressure. It had good fill within the vertebral body. There is no evidence of any extravasation of the cement posteriorly toward the canal. The cement was well contained at the appropriate levels. The cement was allowed to cure appropriately. The trochars removed and final images were taken on C-arm. This showed the cement at the appropriate levels at T6. We were able to proceed with closure. The wound was cleaned and dried and dressed with the appropriate dressing. The drapes were broken down. The patient was gently rolled back onto their hospital bed being careful to maintain their cervical spine and good neutral alignment and position. They were woken up by anesthesia, extubated, and brought to the recovery room in good stable condition. The patient will be admitted to the hospital for observation and for appropriate postoperative care, medical management and monitoring. We will continue to follow them closely about the postoperative course.
--- NOTE | 2024-05-14 19:13 | XR ---
EXAMINATION TYPE: XR thoracic spine 2V, FL guidance operating room DATE OF EXAM: 05/14/2024 7:03 PM COMPARISON: Pre Operative Images if available both CT/MRI or plain film CLINICAL INDICATION: Female, 68 years old with history of T6 KYPHOPLASTY.; TECHNIQUE: XR thoracic spine 2V, FL guidance operating room, multiple fluoroscopic images provided fo r procedure. Total fluoroscopy time: 61.7 seconds Total submitted images to PACS: 4 DAP: [id number] mGym2 Gycm2 uGym2 cGycm2 or equivalent. FINDINGS: Fluoroscopic images during kyphoplasty. Multilevel degeneration changes of the spine. Extravasation o f cement seen to the image left of the spine. Endotracheal tube in place. IMPRESSION: 1. Kyphoplasty cement appears outside the vertebral body, otherwise no evidence for intraoperative c omplication. 2. Please see the operative/procedural note for further details. [facility], , 05/14/2024 7:11 PM
[2024-05-15] MEDS: SODIUM CHLORIDE 0.9% 1,000 ML IV SCH (08:24)
[2024-05-15] MEDS: SENNOSIDES-DOCUSATE SODIUM 1 EACH TAB PO SCH (09:40)
--- NOTE | 2024-05-15 11:02 | P.PN ---
Subjective Progress Note Date: 05/15/24 Principal diagnosis: Altered mental status likely related to narcotics as well as Klonopin Obstructive pulmonary disease not in exacerbation, Spiking fever of 102, suspect UTI/urinary tract infection Back pain with compression fracture of T6 patient Acute on chronic hypoxic respiratory failure May 15, 2024, patient seen eval examined during rounds labs reviewed medi cations reviewed patient is on 3 L oxygen, at room air saturation dropped down to 84%, respiratory status stable, patient has been using oxygen at nighttime recommend to use during the day as well will continue bronchodilator pain management as per primary service. Patient tolerated the surgery fairly well, kyphoplasty of T6 postop day #1 May 13/2024, patient seen examined awake and alert, slightly tremulous, patient is being monitored on adjusted dose of narcotics and benzodiazepine,, neurology evaluating the patient from respiratory standpoint patient remains on 3 L along with bronchodilator DuoNeb as well as aerosolized steroids. Patient being continued on IV Rocephin., Urine analysis report reviewed fairly within normal limit no source of infection identified, noted ID is on consult 68-year-old female seen evaluate examined on medical floor due to oxygen dependent COPD, patient was admitted to the hospital with severe degree of back pain which is acute on chronic, patient has prior workup with MRI of the spine significant for T6 compression fracture for the last few days she has started having back pain chest pain came into the hospital for further evaluation. Patient has oxygen dependent COPD takes bronchodilator and inhalers this morning patient was unresponsive stat recommendation was requested from staff arterial blood gas was checked no significant hypercapnia was noted ABG was fairly within normal limit on 3 L noted that patient not only on pain medicine but also on benzodiazepine with Klonopin 3 times a day. Chest x-ray chronic pulmonary changes. CT scan of the chest no dissection seen, cardiomegaly interstitial edema, coronary arthrosclerosis, medial prominence of lymph node with likely suggestive of CHF. Tmax was one 1.7 now Tmax is 99 today saturation 94% on 3 L, CBC within normal limit, chemistry BUN/creatinine 18/1.19, D-dimer 1.56, ABG 7 point / on 3 L oxygen, urine cultures not done. Meds include chronic pain meds along with DuoNeb, antihypertensive, IV Rocephin, Lasix, hydralazine, and Klonopin 1 mg 3 times a day regimen Objective - Vital Signs Vital signs: Vital Signs Temp 98.8 F 05/15/24 07:24 Pulse 76 05/15/24 09:33 Resp 16 05/15/24 07:24 BP 140/64 05/15/24 07:24 Pulse Ox 98 05/15/24 09:24 FiO2 Intake & Output 05/14/24 05/15/24 05/15/24 18:59 06:59 18:59 Intake Total 250 200 Output Total 5 Balance 245 200 Weight 68.039 kg Intake: IV 250 200 Output: Estimated Blood Loss 5 Other: Voiding Method Toilet # Voids 1 - Exam - Constitutional General appearance: average body habitus, cooperative, disheveled - EENT Eyes: EOMI, PERRLA Ears: bilateral: normal - Neck Neck: normal ROM Carotids: bilateral: upstroke normal Thyroid: bilateral: normal size - Respiratory Respiratory: bilateral: CTA - Cardiovascular Rhythm: regular Heart sounds: normal: S1, S2 - Gastrointestinal General gastrointestinal: normal bowel sounds - Integumentary Integumentary: normal turgor - Neurologic Neurologic: CNII-XII intact - Musculoskeletal Musculoskeletal: gait normal, generalized weakness, strength equal bilaterally - Psychiatric Psychiatric: A&O x's 3, appropriate affect, intact judgment & insight - Labs CBC & Chem 7: 05/12/24 14:46 05/12/24 14:46 Labs: Microbiology - Last 24 Hours (Table) 05/12/24 05:02 Blood Culture - Preliminary Blood Assessment and Plan Assessment: Acute on chronic hypoxic respiratory failure, patient is on 3 L nasal cannula oxygen saturation mid 90s Altered mental status likely related to Klonopin 1 mg 3 times a day as well as narcotics would recommend to lower it down to reduce dose Obstructive pulmonary disease not in exacerbation, continue bronchodilator and inhaled aerosolized steroids Spiking fever of 102, source of fever is not clear ID has been following continue Rocephin Back pain with compression fracture of T6 patient s/p T6 kyphoplasty doing well Plan: Adjust narcotics and benzodiazepine to avoid excessive somnolent affect Continue IV antibiotics Bronchodilator Reviewed reports of urine analysis Patient will likely need sleep study as outpatient Patient tolerated the surgery well status post T6 kyphoplasty on May 14, 2024 Time with Patient: Greater than 30
--- NOTE | 2024-05-15 13:11 | P.PN ---
Progress Note - Text Progress Note Date: 05/15/24 Orthopedic Spine History of present illness: Patient is a pleasant 68-year-old female who is seen at the bedside following T6 kyphoplasty with biopsy performed yesterday. Patient states they are doing okay postsurgically. She does have some soreness at the surgical sites at her thoracic spine. She denies any lower extremity weakness or radiculopathy bilaterally. She was able to ambulate to the restroom. Currently does not complain of nausea, vomiting, fever, or chills. Patient states pain has been adequately controlled. Patient is eating and voiding freely without difficulty. She continues to be seen and examined by multiple other medical providers including medicine, pulmonology, infectious disease, and cardiology as well. Physical Exam: Status post surgical day number 1 Patient is awake, alert, and oriented 3 Vital signs stable Adequate chest excursion with deep inspiration and expiration Dorsiflexion, plantarflexion, and extensor hallucis longus positive sustained bilaterally No signs or symptoms of DVT; no calf pain Dressings are clean, dry, and intact; no erythema, purulence, or signs of infection over the surgical sites at the thoracic spine Assessment: Status post T6 kyphoplasty with biopsy T6 compression fracture Thoracic back pain Acute on chronic hypoxic respiratory failure Altered mental status, resolved Obstructive pulmonary disease Plan: 1. Ambulate as tolerated; work with Physical Therapy 2. Continue Pain control with oral medications as prescribed; prescription for hydrocodone 5 mg / 325 mg was sent to the patient's pharmacy yesterday per orthopedic spine 3. Medical management can continue to manage patient for patient's other medical issues 4. Patient is cleared for discharge from an orthopedic spine standpoint. 5. Patient may utilize previously prescribed TLSO bracing for comfort and support as needed 6. Patient can follow-up with Jd Reardon PA-C or Dr. Marco Antonio Sosa at [facility] in 2-3 weeks following discharge
--- NOTE | 2024-05-15 13:15 | CDI ---
Documentation Clarification Form Date: 05/15/2024 From: Oly Salinas RN CCDS Phone: [phone] Admit Date: 05/12/2024 01:30:00 PM Patient Name: Gianna Dale Visit Number: [id number] Discharge Date: ATTENTION: The Clinical Documentation Specialists (CDI) and [facility] Coding Staff appreciate your assistance in clarifying documentation. Please respond to the clarification below the line at the bottom and electronically sign. The CDI & [facility] Coding staff will review the response and follow-up if needed. Please note: Queries are made part of the Legal Health Record. If you have any questions, please contact the author of this message via ITS. Doctor/Provider: Bhupinder Best MD: Your patient has the documented symptom of Altered Mental Status in the Pulmonology consult 05/12. Additional clarification regarding the etiology/cause of this symptom is requested. History/Risk Factors: 68-year-old female with a history of CAD, HTN and HLD who presents with back pain and chest discomfort, ACS ruled out, found to have compression fracture of T6 Clinical Indicators: 05/10 Triage VS: 131/76, 97.8, 60, 18, 97% room air 05/10-05/15 Temperature max: 101.7 on 05/12 05/12 Pulmonology Consult, Assessment: "Altered mental status likely related to Klonopin 1mg 3 times a day, mental status improved now." 05/12 Neurology Consult, Assessment: "Episode of confusion and I suspect it is due to pyrexia seems suspicious for sepsis of unknown origin-confusion has resolved." 05/13 Neurology PN, Assessment: "Episode of confusion and I suspect it is due to pyrexia seems suspicious for sepsis of unknown origin and medication effection (opiates/sedatives)--confusion has resolved. CT head is negative for acute process" 05/10, 05/12 BUN: 18, 33 Creatinine: 1.19, 2.02 05/12 CT Brain, Impression: "No acute intracranial process." Treatment: Seroquel 25mg oral QHS-given once 05/11 Klonopin 1mg oral TID 05/10-05/12 [place] 5-325mg PO [id number] PRN start 05/11-given once 05/15 Dilaudid 0.5mg IV [id number] PRN start 05/11- given one 05/15 Rocephin 1gram IV [id number] start 05/12 Please clarify the etiology of the symptom of Altered Mental Status: [ X ] Metabolic Encephalopathy due to pyrexia and medication effect of Klonopin [ ] Other condition (please specify) [ ] Unable to determine MTDD
--- NOTE | 2024-05-15 13:44 | P.PN ---
Subjective Progress Note Date: 05/15/24 Principal diagnosis: Reason for follow-up is fever possible pneumonia Patient is a 68-year-old female with a past medical history significant for coronary artery disease COPD DVT fibromyalgia reflux hypertension hyperlipidemia osteoarthritis presenting to the hospital with chest pain which is mostly pain in her mid back and some radiation to the chest and this patient did have a history of T6 compression fracture and is being evaluated by Ortho did spike a fever prompting this consultation.Patient is status post kyphoplasty T6 along with the vertebral body biopsy procedure completed on 05/14/2024. On today's evaluation that is 05/15/2024, the patient continues to be afebrile, the patient is on 3 L nasal cannula oxygen room air and breathing comfortably, the Pt denies having any chest pain or any worsening cough, the patient denies having any abdominal pain no vomiting or any diarrhea, still complaining of pain to the mid back area. No new lab has been obtained today blood culture has been negative so far Objective - Vital Signs Vital signs: Vital Signs Temp 98.4 F 05/15/24 12:44 Pulse 72 05/15/24 13:08 Resp 16 05/15/24 12:44 BP 148/94 05/15/24 12:44 Pulse Ox 98 05/15/24 09:24 FiO2 Intake & Output 05/14/24 05/15/24 05/15/24 18:59 06:59 18:59 Intake Total 250 200 Output Total 5 Balance 245 200 Weight 68.039 kg Intake: IV 250 200 Output: Estimated Blood Loss 5 Other: Voiding Method Toilet # Voids 1 - Exam GENERAL DESCRIPTION: An elderly female lying in bed in no distress RESPIRATORY SYSTEM: Unlabored breathing , decreased breath sounds at bases HEART: S1 S2 regular rate and rhythm , ABDOMEN: Soft , no tenderness EXTREMITIES: No edema feet - Labs CBC & Chem 7: 05/12/24 14:46 05/12/24 14:46 Labs: Microbiology - Last 24 Hours (Table) 05/12/24 05:02 Blood Culture - Preliminary Blood Assessment and Plan (1) Fever Current Visit: Yes Status: Acute Code(s): R50.9 - FEVER, UNSPECIFIED SNOMED Code(s): 673296664 (2) Leukocytosis Current Visit: Yes Status: Acute Code(s): D72.829 - ELEVATED WHITE BLOOD CELL COUNT, UNSPECIFIED SNOMED Code(s): 489407216 Plan: 1patient with fever in this patient presented to hospital mostly with the chest/upper back pain and did have a history thoracic T6 compression fracture subsequent developing a fever did have mostly sore throat and some chest congestion though initial CT angiogram of the chest did not mention any consolidation with a question of possible viral syndrome versus urinary source. 2patient did have a negative influenza RSV and COVID PCR, UA has been negative did have elevated procalcitonin 3-patient did have resolution of the fever white count was trending down we will repeat a CBC with a.m. lab continue with [place] Dictation was produced using [employer] dictation software. please excuse any grammatical, word or spelling errors. Time with Patient: Less than 30
[2024-05-15] MEDS: LACTULOSE 20 GM/30 ML CUP PO SCH (16:43)
--- NOTE | 2024-05-15 17:47 | P.CNPUL ---
History of Present Illness Consult date: 05/15/24 Reason for consult: COPD History of present illness: I was asked to consult on this patient regarding her COPD as there was concern that the patient is going to have some respiratory difficulties following her kyphoplasty of her spine. The patient is known to have chronic oxygen dependent COPD. She has been followed up with us in our office under the care of Dr. Best. Based on her previous pulmonary function test from 2022, her FEV1 is in order of 70% of predicted and she carries a diffusion capacity of 56% of predicted. Her last office visitation with us was back in October 2023. She has history of coronary artery disease, fibromyalgia, hypertension hyperlipidemia, fibromyalgia and panic disorder. The patient has been maintained on Breztri as maintenance for COPD 2 puffs twice a day and albuterol rescue inhaler on as needed basis. This patient has not been in the hospital since 05/11/2024. She presented with pain in her back. Noted the patient also has undergone a previous lobectomy back in the 80s. She was given a CAT scan of the chest using the CTA protocol that showed no evidence of any aortic dissection pulm embolism. The patient had moderate to severe coronary artery calcification and cardiomegaly. MRI of the thoracic spine was also done that showed evidence of old compression deformities of the level of T6 and the 4 without posterior wall displacement. There was also minimal new compression of the level of T5. Based on that, it was recommended for this patient to undergo a T-spine kyphoplasty. I gave the surgical clearance and the patient underwent the procedure yesterday for 86 subacute osteoporotic compression fracture that had failed conservative treatment. Procedure was done without any complication the patient was weaned off the mechanical ventilator and extubated and currently she is on 3 L of oxygen by nasal cannula. Hemodynamically stable. She is currently on oxygen, DuoNeb updrafts, Symbicort as maintenance, IV fluids normal saline at rate of 75, Lasix 20 mg p.o. daily, [place] for pain control and her home outpatient medications have been resumed. She is also taking Robaxin. No indication for an underlying pneumonia. This is based on the CTA of the chest that was done at the time of admission that showed no evidence of any airspace disease and there was chronic limited fibrotic changes and COPD. No significant volume loss. Review of Systems Constitutional: Reports fatigue, Reports weakness, Reports weight gain Eyes: denies as per HPI, denies blurred vision, denies bulging eye, denies decreased vision, denies diplopia, denies discharge, denies dry eye, denies irritation, denies itching, denies pain, denies photophobia, denies loss of peripheral vision, denies loss of vision, denies tunnel vision/blind spots Ears: deny: decreased hearing, ear discharge, earache, tinnitus Ears, nose, mouth and throat: Reports as per HPI Breasts: absent: as per HPI, change in shape, gynecomastia, masses, nipple discharge, pain, skin changes, swelling Cardiovascular: Reports decreased exercise tolerance, Reports dyspnea on exertion Respiratory: Reports dyspnea, Reports home oxygen Gastrointestinal: Reports as per HPI Genitourinary: Reports as per HPI Menstruation: Reports as per HPI Musculoskeletal: Reports as per HPI (Upper back pain thoracic area) Musculoskeletal: absent: ankle pain, ankle stiffness, ankle swelling, as per HPI, elbow pain, elbow stiffness, elbow swelling, foot pain, foot stiffness, foot swelling, hand pain, hand stiffness, hand swelling, hip pain, hip stiffness, hip swelling, knee pain, knee stiffness, knee swelling, shoulder pain, shoulder stiffness, shoulder swelling, wrist pain, wrist stiffness, wrist swelling Integumentary: Reports as per HPI Neurological: Reports as per HPI Psychiatric: Reports as per HPI Endocrine: Reports as per HPI Hematologic/Lymphatic: Reports as per HPI Allergic/Immunologic: Reports as per HPI Past Medical History Past Medical History: Coronary Artery Disease (CAD), COPD, Deep Vein Thrombosis (DVT), Fibromyalgia, GERD/Reflux, Hyperlipidemia, Hypertension, Osteoarthritis (OA), Skin Disorder Additional Past Medical History / Comment(s): DIVERTICULITIS, HX KIDNEY STONE- still has it but it's never moved , Pneumonia, ROSACEA, DVT RLE 2007,gerson cataracts, BILAT ILIAC ARTERIES BLOCKED PER PT, pulmonary fibrosis History of Any Multi-Drug Resistant Organisms: None Reported Past Surgical History: Appendectomy, Bowel Resection, Heart Catheterization With Stent, Hernia Repair, Tubal Ligation Additional Past Surgical History / Comment(s): COLONOSCOPY, PARTIAL LT LOBECTOMY-(pt stated they thought i might of had tb but it was just scar tissue), D & C, 07-17-14 BOWEL RESECTION, HEART C[place] 2 [place] [facility] [place] , 12-18-17 lap robotic assisted repair of inc hernia Past Anesthesia/Blood Transfusion Reactions: No Reported Reaction Date of Last Stent Placement:: 11-15[place] [facility] [place] Past Psychological History: Anxiety, Panic Disorder Smoking Status: Former smoker Past Alcohol Use History: None Reported Past Drug Use History: None Reported - Past Family History Mother Family Medical History: Congestive Heart Failure (CHF) Father Family Medical History: Cancer Additional Family Medical History / Comment(s): TYPE OF CANCER NOT KNOWN Medications and Allergies Home Medications Medication Instructions Recorded Confirmed Type clonazePAM [Clonazepam] 1 mg PO BID 02/20/14 05/10/24 History Aspirin EC [Ecotrin Low Dose] 81 mg PO HS 01/27/20 05/10/24 History Sertraline [Zoloft] 50 mg PO DAILY 06/28/22 05/10/24 History Albuterol Sulfate [Albuterol 2 puff INHALATION RT-Q6H PRN 10/01/22 05/10/24 H istory Sulfate Hfa] Pantoprazole [Protonix] 40 mg PO AC-BID 90 Days #180 tab 10/05/22 05/10/24 Rx hydrALAZINE HCL [Apresoline] 100 mg PO HS 10/18/22 05/10/24 History Budesonide/Glycopyr/Formoterol 2 puff INHALATION RT-BID 05/03/23 05/10/24 History [Breztri Aerosphere Inhaler] Ipratropium-Albuterol Nebulize 3 ml INHALATION RT-BID 05/03/23 05/10/24 History [Duoneb 0.5 mg-3 mg/3 ml Soln] Potassium Chloride ER [K-Dur 20] 20 meq PO HS 05/03/23 05/10/24 History atenoloL [Tenormin] 50 mg PO HS 05/03/23 05/10/24 History Nitroglycerin Sl Tabs [Nitrostat] 0.4 mg SL Q5M PRN 06/09/23 05/10/24 History Atorvastatin [Lipitor] 80 mg PO HS 05/10/24 05/10/24 History HYDROcodone/APAP 5-325MG [[place] 1 tab PO Q6HR PRN 05/10/24 05/10/24 History 5-325] Immune Triple Support 1 tab PO HS 05/10/24 05/10/24 History Linaclotide [Linzess] 290 mcg PO HS PRN 05/10/24 05/10/24 History Magnesium Oxide [Mag-Ox] 400 mg PO HS 05/10/24 05/10/24 History amLODIPine [Norvasc] 10 mg PO HS 05/10/24 05/10/24 History methocarbamoL [Robaxin-750] 750 mg PO BID PRN 05/10/24 05/10/24 History traMADol HCl [Ultram] 50 mg PO BID PRN 05/10/24 05/10/24 History HYDROcodone/APAP 5-325MG [[place] 1 tab PO Q6HR PRN 7 Days #28 tab 05/14/24 Rx 5-325] Allergies Allergy/AdvReac Type Severity Reaction Status Date / Time hydrocodone bitartrate AdvReac Nausea & Verified 05/10/24 13:24 [From Vicodin] Vomiting propoxyphene napsylate AdvReac Nausea & Verified 05/10/24 13:24 [From Darvocet-N 100] Vomiting Physical Exam Vitals: Vital Signs Temp Pulse Pulse Pulse Resp BP BP 05/15/24 16:26 76 05/15/24 16:15 76 05/15/24 13:08 72 05/15/24 12:59 72 05/15/24 12:44 98.4 F 63 16 148/94 05/15/24 11:11 62 16 05/15/24 09:33 76 05/15/24 09:24 05/15/24 09:22 74 05/15/24 07:24 98.8 F 62 16 140/64 05/15/24 00:58 98.2 F 70 18 141/61 05/14/24 22:00 67 150/77 05/14/24 21:45 71 146/70 05/14/24 21:30 73 129/62 05/14/24 21:15 70 121/65 05/14/24 21:00 71 148/70 05/14/24 20:45 68 133/69 05/14/24 20:30 71 140/57 05/14/24 20:15 71 133/65 05/14/24 20:00 97.8 F 76 20 151/67 05/14/24 19:43 80 16 113/83 05/14/24 19:30 80 16 154/68 05/14/24 19:15 83 16 159/70 05/14/24 19:10 87 16 159/70 05/14/24 18:56 97 F L 90 16 183/83 Pulse Ox 05/15/24 16:26 05/15/24 16:15 05/15/24 13:08 05/15/24 12:59 05/15/24 12:44 05/15/24 11:11 05/15/24 09:33 05/15/24 09:24 98 05/15/24 09:22 05/15/24 07:24 05/15/24 00:58 93 L 05/14/24 22:00 90 L 05/14/24 21:45 93 L 05/14/24 21:30 92 L 05/14/24 21:15 90 L 05/14/24 21:00 05/14/24 20:45 90 L 05/14/24 20:30 90 L 05/14/24 20:15 05/14/24 20:00 90 L 05/14/24 19:43 91 L 05/14/24 19:30 92 L 05/14/24 19:15 93 L 05/14/24 19:10 93 L 05/14/24 18:56 94 L Intake and Output 05/15/24 05/15/24 05/15/24 06:59 14:59 22:59 Other: Voiding Method Toilet # Voids 1 Results - Laboratory Findings CBC and BMP: 05/12/24 14:46 05/12/24 14:46 ABG ABG pH 7.40 (7.35-7.45) 05/12/24 06:01 ABG pCO2 43 mmHg (35-45) 05/12/24 06:01 ABG pO2 94 mmHg (83-108) 05/12/24 06:01 ABG O2 Saturation 97.5 % (94-97) H 05/12/24 06:01 PT/INR, D-dimer PT 10.3 sec (10.0-12.5) 05/10/24 13:52 INR 0.9 (<1.2) 05/10/24 13:52 D-Dimer 1.56 mg/L FEU (<0.60) H 05/11/24 11:42 Abnormal lab findings: Abnormal Labs 05/10/24 05/10/24 05/11/24 13:52 14:25 03:18 WBC Neutrophils # Lymphocytes # 0.6 L D-Dimer ABG HCO3 ABG Total CO2 ABG O2 Saturation Chloride 108 H BUN 18 H Creatinine 1.19 H Alkaline Phosphatase 130 H C-Reactive Protein Triglycerides 153.00 H Cholesterol 216.00 H Procalcitonin Urine Protein Urine Glucose (UA) 05/11/24 05/12/24 05/12/24 11:42 06:01 14:28 WBC Neutrophils # Lymphocytes # D-Dimer 1.56 H ABG HCO3 27 H ABG Total CO2 28 H ABG O2 Saturation 97.5 H Chloride BUN Creatinine Alkaline Phosphatase C-Reactive Protein Triglycerides Cholesterol Procalcitonin Urine Protein 2+ H Urine Glucose (UA) 3+ H 05/12/24 05/12/24 05/13/24 14:46 14:46 04:49 WBC 11.5 H Neutrophils # 9.8 H Lymphocytes # 0.7 L D-Dimer ABG HCO3 ABG Total CO2 ABG O2 Saturation Chloride BUN 33 H Creatinine 2.02 H Alkaline Phosphatase C-Reactive Protein Triglycerides Cholesterol Procalcitonin 1.25 H Urine Protein Urine Glucose (UA) 05/13/24 04:49 WBC Neutrophils # Lymphocytes # D-Dimer ABG HCO3 ABG Total CO2 ABG O2 Saturation Chloride BUN Creatinine Alkaline Phosphatase C-Reactive Protein 16.30 H Triglycerides Cholesterol Procalcitonin Urine Protein Urine Glucose (UA) Assessment and Plan Plan: COPD, oxygen dependent and the patient is currently on 3 L of O2 nasal cannula. Overall respiratory status is stable. As mentioned earlier, the patient's baseline FEV1 back in 2022 was in the order of 70% of predicted and diffusion capacity of 56% of predicted maintained on Breztri on outpatient basis, currently on Symbicort and DuoNeb updrafts T6 kyphoplasty for compression fracture of the spine, as the patient was found to have a T6 subacute osteoporotic compression fracture with secondary pain that failed conservative measures Coronary artery disease, status post cardiac catheterization and coronary stenti ng Hypertension Hyperlipidemia History of diverticulosis/diverticulitis Remote history of DVT of the right lower extremity back in 2007 Cataracts Peripheral vascular disease Acid reflux Fibromyalgia Chronic kidney disease, stage 3 Chronic anxiety/panic disorder 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 No evidence of any chronic lung disease Previous history of bowel resection and laparoscopic repair of incarcerated hernia Obesity Plan Provide the patient incentive spirometer. Continue DuoNeb updrafts Continue Symbicort [place] for pain control IV fluids with normal saline at 75 cc an hour No indication for pneumonia antibiotics can be discontinued Monitor renal function Add heparin subcu 5000 units every 12 hours for DVT prophylaxis Will follow
[2024-05-15] MEDS: LACTULOSE 20 GM/30 ML CUP PO PRN (17:56)
[2024-05-15] MEDS: HEPARIN SODIUM,PORCINE 5,000 UNIT/ML 1 ML VIAL SQ SCH (20:04)
[2024-05-15] MEDS: BENZOCAINE/MENTHOL LOZENG 1 EACH LOZENGE MUCOUS MEM PRN (21:37)
[2024-05-16 09:33] LABS: ALT 12 U/L (8-44); AST 26 U/L (13-35); Albumin 3.4 g/dL (3.8-4.9); Albumin/Globulin Ratio 1.17 Ratio (1.60-3.17); Alkaline Phosphatase 108 U/L (41-126); BUN/Creat Ratio 17.94 Ratio (12.00-20.00); Blood Urea Nitrogen 30.5 mg/dL (9.0-27.0); Calcium 8.6 mg/dL (8.7-10.3); Carbon Dioxide 22.3 mmol/L (21.6-31.8); Chloride 106 mmol/L (96-109); Globulin 2.9 g/dL (1.6-3.3); Glucose 96 mg/dL (70-110); Potassium 4.2 mmol/L (3.5-5.5); Sodium 140 mmol/L (135-145); Total Bilirubin 0.3 mg/dL (0.3-1.2); Total Protein 6.3 g/dL (6.2-8.2)
[2024-05-16 09:38] LABS: Basophils # (A) 0.06 X 10*3/uL (0.00-0.10); Basophils % (A) 0.8 %; Eosinophils # (A) 0.23 X 10*3/uL (0.04-0.35); HCT 34.2 % (37.2-46.3); HGB 10.8 g/dL (12.0-15.0); Lymphocytes # (A) 0.73 X 10*3/uL (0.90-5.00); Lymphocytes % (A) 9.6 %; MCH 30.6 pg (27.0-32.0); MCHC 31.6 g/dL (32.0-37.0); MCV 96.9 FL (80.0-97.0); Mean Platelet Volume 9.7 FL (9.5-12.2); Monocytes # (A) 0.73 X 10*3/uL (0.20-1.00); Monocytes % (A) 9.6 %; NRBC Per 100 WBC 0 X 10*3/uL (0.00-0.01); Neutrophils # (A) 5.72 X 10*3/uL (1.80-7.70); Neutrophils % (A) 74.9 %; Platelet Count 314 X 10*3/uL (140-440); RBC 3.53 X 10*6/uL (4.10-5.20); RDW 14.9 % (11.5-14.5); WBC 7.63 X 10*3/uL (4.50-10.00)
--- NOTE | 2024-05-16 09:46 | P.PN ---
Subjective Progress Note Date: 05/16/24 Principal diagnosis: Altered mental status likely related to narcotics as well as Klonopin Obstructive pulmonary disease not in exacerbation, Spiking fever of 102, suspect UTI/urinary tract infection Back pain with compression fracture of T6 patient Acute on chronic hypoxic respiratory failure May 16/2024, patient seen and examined during rounds labs reviewed medica tions reviewed, noted that patient was evaluated by hospitalist rn behavioral health, overall respiratory status remains stable, patient continued to have intermittent shortness of breath but since 48-hour postoperatively she has been stable on 3 L nasal cannula patient is afebrile respiratory rate is 16, sa turation 93% on 3 L oxygen labs from today reviewed chemistry fairly within normal limit BUN/creatinine 30/1.7. Patient remains on pain medicines bronchodilators IV Rocephin and antidepressant patient has been off of long- acting benzodiazepine, neurology also following for altered mental status tho ught to be related to narcotics and benzodiazepine combination May 15, 2024, patient seen eval examined during rounds labs reviewed medications reviewed patient is on 3 L oxygen, at room air saturation dropped down to 84%, respiratory status stable, patient has been using oxygen at nighttime recommend to use during the day as well will continue bronchodilator pain management as per primary service. Patient tolerated the surgery fairly well, kyphoplasty of T6 postop day #1 May 13/2024, patient seen examined awake and alert, slightly tremulous, patient is being monitored on adjusted dose of narcotics and benzodiazepine,, neurology evaluating the patient from respiratory standpoint patient remains on 3 L along with bronchodilator DuoNeb as well as aerosolized steroids. Patient being continued on IV Rocephin., Urine analysis report reviewed fairly within normal limit no source of infection identified, noted ID is on consult 68-year-old female seen evaluate examined on medical floor due to oxygen dependent COPD, patient was admitted to the hospital with severe degree of back pain which is acute on chronic, patient has prior workup with MRI of the spine significant for T6 compression fracture for the last few days she has started having back pain chest pain came into the hospital for further evaluation. Patient has oxygen dependent COPD takes bronchodilator and inhalers this morning patient was unresponsive stat recommendation was requested from staff arterial blood gas was checked no significant hypercapnia was noted ABG was fairly within normal limit on 3 L noted that patient not only on pain medicine but also on benzodiazepine with Klonopin 3 times a day. Chest x-ray chronic pulmonary changes. CT scan of the chest no dissection seen, cardiomegaly interstitial edema, coronary arthrosclerosis, medial prominence of lymph node with likely suggestive of CHF. Tmax was one 1.7 now Tmax is 99 today saturation 94% on 3 L, CBC within normal limit, chemistry BUN/creatinine 18/1.19, D-dimer 1.56, ABG 7 point 4/43/94 on 3 L oxygen, urine cultures not done. Meds include chronic pain meds along with DuoNeb, antihypertensive, IV Rocephin, Lasix, hydralazine, and Klonopin 1 mg 3 times a day regimen Objective - Vital Signs Vital signs: Vital Signs Temp 98.4 F 05/16/24 07:31 Pulse 58 L 05/16/24 07:31 Resp 16 05/16/24 07:31 BP 169/68 05/16/24 07:31 Pulse Ox 93 L 05/16/24 07:31 FiO2 Intake & Output 05/15/24 05/16/24 05/16/24 18:59 06:59 18:59 Intake Total 540 Balance 540 Intake: Oral 540 Other: Voiding Method Toilet Toilet # Voids 1 - Exam - Constitutional General appearance: average body habitus, cooperative, disheveled - EENT Eyes: EOMI, PERRLA Ears: bilateral: normal - Neck Neck: normal ROM Carotids: bilateral: upstroke normal Thyroid: bilateral: normal size - Respiratory Respiratory: bilateral: CTA - Cardiovascular Rhythm: regular Heart sounds: normal: S1, S2 - Gastrointestinal General gastrointestinal: normal bowel sounds - Integumentary Integumentary: normal turgor - Neurologic Neurologic: CNII-XII intact - Musculoskeletal Musculoskeletal: gait normal, generalized weakness, strength equal bilaterally - Psychiatric Psychiatric: A&O x's 3, appropriate affect, intact judgment & insight - Labs CBC & Chem 7: 05/12/24 14:46 05/16/24 04:20 Labs: Abnormal Lab Results - Last 24 Hours (Table) 05/16/24 Range/Units 04:20 BUN 30.5 H (9.0-27.0) mg/dL Creatinine 1.7 H (0.6-1.5) mg/dL Est GFR (CKD-EPI) 32 L (>=60) Calcium 8.6 L (8.7-10.3) mg/dL C-Reactive Protein 5.10 H (0.00-0.80) mg/dL Albumin 3.4 L (3.8-4.9) g/dL Albumin/Globulin Ratio 1.17 L (1.60-3.17) Ratio Microbiology - Last 24 Hours (Table) 05/12/24 05:02 Blood Culture - Preliminary Blood Assessment and Plan Assessment: Acute on chronic hypoxic respiratory failure, patient is on 3 L nasal cannula oxygen saturation mid 90s Altered mental status likely related to Klonopin 1 mg 3 times a day as well as narcotics would recommend to lower it down to reduce dose and observe closely Obstructive pulmonary disease not in exacerbation, continue bronchodilator and inhaled aerosolized steroids Spiking fever of 102, source of fever is not clear ID has been following continue Rocephin Back pain with compression fracture of T6 patient s/p T6 kyphoplasty doing well Plan: Adjust narcotics and benzodiazepine to avoid excessive somnolent affect Continue IV antibiotics Bronchodilator Reviewed reports of urine analysis Patient will likely need sleep study as outpatient Patient tolerated the surgery well status post T6 kyphoplasty on May 14, 2024 Time with Patient: Greater than 30
[2024-05-16] MEDS: HYDROcodone/APAP 5-325MG 1 EACH TAB PO PRN (12:19)
--- NOTE | 2024-05-16 12:29 | P.PN ---
Subjective Progress Note Date: 05/16/24 Principal diagnosis: Reason for follow-up is fever possible pneumonia Patient is a 68-year-old female with a past medical history significant for coronary artery disease COPD DVT fibromyalgia reflux hypertension hyperlipidemia osteoarthritis presenting to the hospital with chest pain which is mostly pain in her mid back and some radiation to the chest and this patient did have a history of T6 compression fracture and is being evaluated by Ortho did spike a fever prompting this consultation.Patient is status post kyphoplasty T6 along with the vertebral body biopsy procedure completed on 05/14/2024. On today's evaluation that is 05/16/2024, Patient is afebrile patient is currently on 3 L nasal cannula oxygen and denies having any worsening shortness of breath or any worsening cough still complaining of pain to the mid back area no nausea vomiting or diarrhea. Patient white count is 7.63, creatinine is 1.7 blood culture have been negative so far Objective - Vital Signs Vital signs: Vital Signs Temp 98.4 F 05/16/24 07:31 Pulse 64 05/16/24 09:37 Resp 15 05/16/24 09:59 BP 169/68 05/16/24 07:31 Pulse Ox 93 L 05/16/24 07:31 FiO2 Intake & Output 05/15/24 05/16/24 05/16/24 18:59 06:59 18:59 Intake Total 540 Balance 540 Intake: Oral 540 Other: Voiding Method Toilet Toilet # Voids 1 - Exam GENERAL DESCRIPTION: An elderly female lying in bed in no distress RESPIRATORY SYSTEM: Unlabored breathing , decreased breath sounds at bases HEART: S1 S2 regular rate and rhythm , ABDOMEN: Soft , no tenderness EXTREMITIES: No edema feet - Labs CBC & Chem 7: 05/16/24 04:20 05/16/24 04:20 Labs: Abnormal Lab Results - Last 24 Hours (Table) 05/16/24 05/16/24 Range/Units 04:20 04:20 RBC 3.53 L (4.10-5.20) X 10*6/uL Hgb 10.8 L (12.0-15.0) g/dL Hct 34.2 L (37.2-46.3) % MCHC 31.6 L (32.0-37.0) g/dL RDW 14.9 H (11.5-14.5) % Immature Gran # 0.16 H (0.00-0.04) X 10*3/uL Lymphocytes # 0.73 L (0.90-5.00) X 10*3/uL BUN 30.5 H (9.0-27.0) mg/dL Creatinine 1.7 H (0.6-1.5) mg/dL Est GFR (CKD-EPI) 32 L (>=60) Calcium 8.6 L (8.7-10.3) mg/dL C-Reactive Protein 5.10 H (0.00-0.80) mg/dL Albumin 3.4 L (3.8-4.9) g/dL Albumin/Globulin Ratio 1.17 L (1.60-3.17) Ratio Microbiology - Last 24 Hours (Table) 05/12/24 05:02 Blood Culture - Preliminary Blood Assessment and Plan (1) Fever Current Visit: Yes Status: Acute Code(s): R50.9 - FEVER, UNSPECIFIED SNOMED Code(s): 679466364 (2) Leukocytosis Current Visit: Yes Status: Acute Code(s): D72.829 - ELEVATED WHITE BLOOD CELL COUNT, UNSPECIFIED SNOMED Code(s): 494499470 Plan: 1patient with fever in this patient presented to hospital mostly with the chest/upper back pain and did have a history thoracic T6 compression fracture subsequent developing a fever did have mostly sore throat and some chest congestion though initial CT angiogram of the chest did not mention any consolidation with a question of possible viral syndrome versus urinary source. 2patient did have a negative influenza RSV and COVID PCR, UA has been negative did have elevated procalcitonin 3-patient did have resolution of the fever white count has normalized continue with Rocephin will transition to Ceftin on discharge Dictation was produced using [employer] dictation software. please excuse any grammatical, word or spelling errors. Time with Patient: Less than 30
--- NOTE | 2024-05-16 15:31 | P.PN ---
Subjective Progress Note Date: 05/16/24 I was asked to consult on this patient regarding her COPD as there was concern that the patient is going to have some respiratory difficulties following her kyphoplasty of her spine. The patient is known to have chronic oxygen dependent COPD. She has been followed up with us in our office under the care of Dr. Best. Based on her previous pulmonary function test from 2022, her FEV1 is in order of 70% of predicted and she carries a diffusion capacity of 56% of predicted. Her last office visitation with us was back in October 2023. She has history of coronary artery disease, fibromyalgia, hypertension hyperlipidemia, fibromyalgia and panic disorder. The patient has been maintained on Breztri as maintenance for COPD 2 puffs twice a day and albuterol rescue inhaler on as needed basis. This patient has not been in the hospital since 05/11/2024. She presented with pain in her back. Noted the patient also has undergone a previous lobectomy back in the 80s. She was given a CAT scan of the chest using the CTA protocol that showed no evidence of any aortic dissection pulm embolism. The patient had moderate to severe coronary artery calcification and cardiomegaly. MRI of the thoracic spine was also done that showed evidence of old compression deformities of the level of T6 and the 4 without posterior wall displacement. There was also minimal new compression of the level of T5. Based on that, it was recommended for this patient to undergo a T-spine kyphoplasty. I gave the surgical clearance and the patient underwent the procedure yesterday for 86 subacute osteoporotic compression fracture that had failed conservative treatment. Procedure was done without any complication the patient was weaned off the mechanical ventilator and extubated and currently she is on 3 L of oxyge n by nasal cannula. Hemodynamically stable. She is currently on oxygen, DuoNeb updrafts, Symbicort as maintenance, IV fluids normal saline at rate of 75, Lasix 20 mg p.o. daily, [place] for pain control and her home outpatient medications have been resumed. She is also taking Robaxin. No indication for an underlying pneumonia. This is based on the CTA of the chest that was done at the time of a dmission that showed no evidence of any airspace disease and there was chronic limited fibrotic changes and COPD. No significant volume loss. On today's evaluation of 05/16/2024, the patient is still having back pain. She is post kyphoplasty. Nevertheless, rest of this is stable and the patient r emains on liters of oxygen by nasal cannula. No significant cough or sputum production. No significant bronchospasm or wheezing on today's evaluation. Medication remain unchanged. The patient is receiving pain control and she is currently on Ultram on an as-needed basis. She is also on [place] 5 1 tablet every 6 hours as needed. She remains on Symbicort. She remains on DuoNeb nebulized treatments [id number]. Blood work was reviewed. The white cell count is 7.6 with a hemoglobin 10.8. Sodium is at 140, BUN 30 with a creatinine of 1.7. Awake and alert and communicating. Able to do some limited activity in her bed and limited mobility and ambulation. Objective - Vital Signs Vital signs: Vital Signs Temp 98.4 F 05/16/24 07:31 Pulse 64 05/16/24 09:37 Resp 15 05/16/24 09:59 BP 169/68 05/16/24 07:31 Pulse Ox 93 L 05/16/24 07:31 FiO2 Intake & Output 05/15/24 05/16/24 05/16/24 18:59 06:59 18:59 Intake Total 540 200 Balance 540 200 Intake: Oral 540 200 Other: Voiding Method Toilet Toilet # Voids 1 - Exam The patient appeared well nourished and normally developed. Vital signs as documented. The patient is currently on 3 days of oxygen by nasal cannula Head exam is unremarkable. No scleral icterus or corneal arcus noted. Neck is without jugular venous distension, thyromegaly, or carotid bruits. Carotid upstrokes are brisk bilaterally. Lungs are clear to auscultation and percussion. Breath sounds are diminished bilaterally and there is no significant wheezes appreciated. Cardiac exam reveals the PMI to be normally sized and situated. Rhythm is regular. First and second heart sounds normal. No murmurs, rubs or gallops. Abdominal exam reveals normal bowel sounds, no masses, no organomegaly and no aortic enlargement. Extremities are nonedematous and both femoral and pedal pulses are normal. Examination of the skin revealed no evidence of significant rashes, suspicious appearing nevi or other concerning lesions. Neurologically, the patient is awake and alert and the patient does not have any focal neurological deficit. Cranial nerves are essentially intact. - Labs CBC & Chem 7: 05/16/24 04:20 05/16/24 04:20 Labs: Abnormal Lab Results - Last 24 Hours (Table) 05/16/24 05/16/24 Range/Units 04:20 04:20 RBC 3.53 L (4.10-5.20) X 10*6/uL Hgb 10.8 L (12.0-15.0) g/dL Hct 34.2 L (37.2-46.3) % MCHC 31.6 L (32.0-37.0) g/dL RDW 14.9 H (11.5-14.5) % Immature Gran # 0.16 H (0.00-0.04) X 10*3/uL Lymphocytes # 0.73 L (0.90-5.00) X 10*3/uL BUN 30.5 H (9.0-27.0) mg/dL Creatinine 1.7 H (0.6-1.5) mg/dL Est GFR (CKD-EPI) 32 L (>=60) Calcium 8.6 L (8.7-10.3) mg/dL C-Reactive Protein 5.10 H (0.00-0.80) mg/dL Albumin 3.4 L (3.8-4.9) g/dL Albumin/Globulin Ratio 1.17 L (1.60-3.17) Ratio Microbiology - Last 24 Hours (Table) 05/12/24 05:02 Blood Culture - Preliminary Blood Assessment and Plan Plan: COPD, oxygen dependent and the patient is currently on 3 L of O2 nasal cannula. Overall respiratory status is stable. As mentioned earlier, the patient's baseline FEV1 back in 2022 was in the order of 70% of predicted and diffusion capacity of 56% of predicted maintained on Breztri on outpatient basis, currently on Symbicort and DuoNeb updrafts. The patient COPD is currently inactive and stable T6 kyphoplasty for compression fracture of the spine, as the patient was found to have a T6 subacute osteoporotic compression fracture with secondary pain that failed conservative measures, postop day #2, still encountering pain currently on Ultram and [place] Coronary artery disease, status post cardiac catheterization and coronary stenting Hypertension Hyperlipidemia History of diverticulosis/diverticulitis Remote history of DVT of the right lower extremity back in 2007 Cataracts Peripheral vascular disease Acid reflux Fibromyalgia Chronic kidney disease, stage 3 Chronic anxiety/panic disorder 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 No evidence of any chronic lung disease Previous history of bowel resection and laparoscopic repair of incarcerated hernia Obesity Plan Titrate oxygen flow to maintain saturation above 90% Provide the patient incentive spirometer. Continue DuoNeb updrafts Continue Symbicort [place] for pain control IV fluids with normal saline at 75 cc an hour No indication for pneumonia antibiotics can be discontinued Monitor renal function heparin subcu 5000 units every 12 hours for DVT prophylaxis Will follow
[2024-05-17 08:48] VITALS: BP 184/70; PULSE 62; RESP 18; TEMP 98.2
--- NOTE | 2024-05-17 10:33 | PN ---
PROGRESS NOTE DATE OF SERVICE: 05/16/2024 SUBJECTIVE: The patient is continuing to have pain, up ambulating in her back, status post vertebroplasty. Breathing is improved. OBJECTIVE: CARDIOVASCULAR: S1 and S2. HEMATOLOGY: Negative Homans. PSYCH: Fair mood and affect. VITAL SIGNS: Blood pressure is low high at 150 to 80s over 70s, temperature 98.2, pulse 60 to 70, and respiratory rate 16 to 18. ASSESSMENT: Acute hypoxemic respiratory failure, pneumonia, status post vertebroplasty. Continue current treatment. Prognosis is guarded. Ambulate as tolerated. Possible discharge home soon. MMODL / IJN: [id number] /
--- NOTE | 2024-05-17 13:58 | P.PN ---
Subjective Progress Note Date: 05/17/24 Principal diagnosis: Reason for follow-up is fever possible pneumonia Patient is a 68-year-old female with a past medical history significant for coronary artery disease COPD DVT fibromyalgia reflux hypertension hyperlipidemia osteoarthritis presenting to the hospital with chest pain which is mostly pain in her mid back and some radiation to the chest and this patient did have a history of T6 compression fracture and is being evaluated by Ortho did spike a fever prompting this consultation.Patient is status post kyphoplasty T6 along with the vertebral body biopsy procedure completed on 05/14/2024. On today's evaluation that is 05/17/2024, patient has been afebrile, patient is breathing comfortably and is currently on 3 L current oxygen, patient denies having any worsening cough or chest pain, patient denies nausea vomiting or diarrhea and no abdominal pain. Patient white count normalized to 7.6 as of yesterday no CBC was done today blood culture has been negative Objective - Vital Signs Vital signs: Vital Signs Temp 98.2 F 05/17/24 07:30 Pulse 62 05/17/24 08:45 Resp 18 05/17/24 08:45 BP 184/70 05/17/24 07:30 Pulse Ox 96 05/17/24 08:29 FiO2 Intake & Output 05/16/24 05/17/24 05/17/24 18:59 06:59 18:59 Intake Total 200 10 Balance 200 10 Intake: IV 10 Invasive Line 4 10 Oral 200 Other: Voiding Method Toilet Toilet # Voids 1 - Exam GENERAL DESCRIPTION: An elderly female lying in bed in no distress RESPIRATORY SYSTEM: Unlabored breathing , decreased breath sounds at bases HEART: S1 S2 regular rate and rhythm , ABDOMEN: Soft , no tenderness EXTREMITIES: No edema feet - Labs CBC & Chem 7: 05/16/24 04:20 05/16/24 04:20 Labs: Microbiology - Last 24 Hours (Table) 05/12/24 05:02 Blood Culture - Final Blood Assessment and Plan (1) Fever Current Visit: Yes Status: Acute Code(s): R50.9 - FEVER, UNSPECIFIED SNOMED Code(s): 131526896 (2) Leukocytosis Current Visit: Yes Status: Acute Code(s): D72.829 - ELEVATED WHITE BLOOD CELL COUNT, UNSPECIFIED SNOMED Code(s): 998613826 Plan: 1patient with fever in this patient presented to hospital mostly with the chest/upper back pain and did have a history thoracic T6 compression fracture subsequent developing a fever did have mostly sore throat and some chest congestion though initial CT angiogram of the chest did not mention any consolidation with a question of possible viral syndrome versus urinary source. 2patient did have a negative influenza RSV and COVID PCR, UA has been negative did have elevated procalcitonin 3-patient did have resolution of the fever on cefazolin and the white count normalized will consider short course of oral Ceftin on discharge Dictation was produced using [employer] software. please excuse any grammatical, word or spelling errors.
--- NOTE | 2024-05-17 15:05 | P.PN ---
Subjective Progress Note Date: 05/17/24 Follow-up with the patient and she feels she is doing well. Denies of any neurological issues. No further confusion. No further fevers. During this hospital patient to have surgery regarding her compression fracture. Objective - Vital Signs Vital signs: Vital Signs Temp 98.2 F 05/17/24 07:30 Pulse 62 05/17/24 08:45 Resp 18 05/17/24 08:45 BP 184/70 05/17/24 07:30 Pulse Ox 96 05/17/24 08:29 FiO2 Intake & Output 05/16/24 05/17/24 05/17/24 18:59 06:59 18:59 Intake Total 200 10 Balance 200 10 Intake: IV 10 Invasive Line 4 10 Oral 200 Other: Voiding Method Toilet Toilet # Voids 1 - Exam GENERAL: The patient is sitting in a recliner and is not in acute distress. NEUROLOGICAL: Higher mental function: The patient is awake, alert, oriented to self, place and time. Patient is following simple commands. No aphasia and no neglect. Cranial nerves: The pupils are round, equal and reactive to light and accommodation. Visual dominguez are full to confrontation throughout. Extraocular movement is intact no nystagmus is noted. Facial sensation is normal to touch throughout. The facial strength is normal throughout. Hearing is normal bilaterally to hand rub. Tongue is midline and moved [id number] without any difficulty. No dysarthria is noted. Shoulder shrug is normal bilaterally. Motor: The strength is 5 over 5 throughout. Normal tone and bulk. Cerebellum: Normal finger to nose bilaterally. Sensation: Sensation is normal to touch throughout. Reflexes (right/left): 2+ throughout. Plantars are downgoing bilaterally. Some of the workup during this hospital visit consisted of: White blood cell is 7.6 on presentation which is within normal limits. Calcium is 8.6, magnesium is 1.8, sodium is 138, initial serum glucose is 89. Plasma lactic acid vein on presentation is 1.6. Patient has subacute T8 6 compression fracture without neurological deficit and orthopedic team is consulted. Patient also has pathological fracture due to osteoporosis T6. CT head: Is negative for acute intracranial process. - Labs CBC & Chem 7: 05/16/24 04:20 05/16/24 04:20 Labs: Microbiology - Last 24 Hours (Table) 05/12/24 05:02 Blood Culture - Final Blood Assessment and Plan Assessment: This is a 68-year-old woman who presents because of worsening middle back pain. 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 Episode of confusion and I suspect it is due to pyrexia seems suspicious for sepsis of unknown origin and medication effection (opiates/sedatives)--confusion has resolved. CT head is negative for acute process Worsening middle back pain Subacute T6 compression fracture and it seems the fracture was felt due to pathological osteoporosis status post T6 kyphoplasty History of coronary artery disease post stent History of hypertension Diverticulitis History of pulmonary fibrosis History of DVT. History of COPD Plan: If possible avoid sedative or opiates and if not possible then minimize dose. Infection disease is on board. Has blood culture and negative. No further fevers and wbc is normal. Orthopedic surgery team is consulted Cardiology team is consulted Pulmonary team is consulted Will defer the rest of the medical management the primary and other specialist The plan discussed with the patient and her nurse. There is no further neurological work-up. Will sign off. Please reconsult if needed. Time with Patient: Less than 30
--- NOTE | 2024-05-17 15:17 | P.PN ---
Subjective Progress Note Date: 05/17/24 I was asked to consult on this patient regarding her COPD as there was concern that the patient is going to have some respiratory difficulties following her kyphoplasty of her spine. The patient is known to have chronic oxygen dependent COPD. She has been followed up with us in our office under the care of Dr. Best. Based on her previous pulmonary function test from 2022, her FEV1 is in order of 70% of predicted and she carries a diffusion capacity of 56% of predicted. Her last office visitation with us was back in October 2023. She has history of coronary artery disease, fibromyalgia, hypertension hyperlipidemia, fibromyalgia and panic disorder. The patient has been maintained on Breztri as maintenance for COPD 2 puffs twice a day and albuterol rescue inhaler on as needed basis. This patient has not been in the hospital since 05/11/2024. She presented with pain in her back. Noted the patient also has undergone a previous lobectomy back in the 80s. She was given a CAT scan of the chest using the CTA protocol that showed no evidence of any aortic dissection pulm embolism. The patient had moderate to severe coronary artery calcification and cardiomegaly. MRI of the thoracic spine was also done that showed evidence of old compression deformities of the level of T6 and the 4 without posterior wall displacement. There was also minimal new compression of the level of T5. Based on that, it was recommended for this patient to undergo a T-spine kyphoplasty. I gave the surgical clearance and the patient underwent the procedure yesterday for 85 subacute osteoporotic compression fracture that had failed conservative treatment. Procedure was done without any complication the patient was weaned off the mechanical ventilator and extubated and currently she is on 3 L of oxyge n by nasal cannula. Hemodynamically stable. She is currently on oxygen, DuoNeb updrafts, Symbicort as maintenance, IV fluids normal saline at rate of 75, Lasix 20 mg p.o. daily, [place] for pain control and her home outpatient medications have been resumed. She is also taking Robaxin. No indication for an underlying pneumonia. This is based on the CTA of the chest that was done at the time of a dmission that showed no evidence of any airspace disease and there was chronic limited fibrotic changes and COPD. No significant volume loss. On today's evaluation of 05/16/2024, the patient is still having back pain. She is post kyphoplasty. Nevertheless, rest of this is stable and the patient r emains on liters of oxygen by nasal cannula. No significant cough or sputum production. No significant bronchospasm or wheezing on today's evaluation. Medication remain unchanged. The patient is receiving pain control and she is currently on Ultram on an as-needed basis. She is also on [place] 5 1 tablet every 6 hours as needed. She remains on Symbicort. She remains on DuoNeb nebulized treatments [id number]. Blood work was reviewed. The white cell count is 7.6 with a hemoglobin 10.8. Sodium is at 140, BUN 30 with a creatinine of 1.7. Awake and alert and communicating. Able to do some limited activity in her bed and limited mobility and ambulation. On 05/17/2024, the patient is being seen for a follow-up. The patient is doing well. No specific complaints. The patient is known to have COPD and the patient is post kyphoplasty of a T6 compression fracture and the patient is postop day #3. Pain is subsided since yesterday and is estimated to be around 6 out of 10. The white cell count is 7.6, hemoglobin is 10.8, BUN is 30 with a creatinine of 1.7 and sodium levels at 140. No other new complaints otherwise for now. She remains on options. Objective - Vital Signs Vital signs: Vital Signs Temp 98.2 F 05/17/24 07:30 Pulse 62 05/17/24 08:45 Resp 18 05/17/24 08:45 BP 184/70 05/17/24 07:30 Pulse Ox 96 05/17/24 08:29 FiO2 Intake & Output 05/16/24 05/17/24 05/17/24 18:59 06:59 18:59 Intake Total 200 10 Balance 200 10 Intake: IV 10 Invasive Line 4 10 Oral 200 Other: Voiding Method Toilet Toilet # Voids 1 - Exam The patient appeared well nourished and normally developed. Vital signs as documented. The patient is currently on 3 days of oxygen by nasal cannula Head exam is unremarkable. No scleral icterus or corneal arcus noted. Neck is without jugular venous distension, thyromegaly, or carotid bruits. Carotid upstrokes are brisk bilaterally. Lungs are clear to auscultation and percussion. Breath sounds are diminished bilaterally and there is no significant wheezes appreciated. Cardiac exam reveals the PMI to be normally sized and situated. Rhythm is regular. First and second heart sounds normal. No murmurs, rubs or gallops. Abdominal exam reveals normal bowel sounds, no masses, no organomegaly and no aortic enlargement. Extremities are nonedematous and both femoral and pedal pulses are normal. Examination of the skin revealed no evidence of significant rashes, suspicious appearing nevi or other concerning lesions. Neurologically, the patient is awake and alert and the patient does not have any focal neurological deficit. Cranial nerves are essentially intact. - Labs CBC & Chem 7: 05/16/24 04:20 05/16/24 04:20 Assessment and Plan Plan: COPD, oxygen dependent and the patient is currently on 3 L of O2 nasal cannula. Overall respiratory status is stable. As mentioned earlier, the patient's baseline FEV1 back in 2022 was in the order of 70% of predicted and diffusion capacity of 56% of predicted maintained on Breztri on outpatient basis, currently on Symbicort and DuoNeb updrafts. The patient COPD is currently inactive and stable T6 kyphoplasty for compression fracture of the spine, as the patient was found to have a T6 subacute osteoporotic compression fracture with secondary pain that failed conservative measures, postop day #2, still encountering pain currently on Ultram and [place] Coronary artery disease, status post cardiac catheterization and coronary stenting Hypertension Hyperlipidemia History of diverticulosis/diverticulitis Remote history of DVT of the right lower extremity back in 2007 Cataracts Peripheral vascular disease Acid reflux Fibromyalgia Chronic kidney disease, stage 3 Chronic anxiety/panic disorder 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 No evidence of any chronic lung disease Previous history of bowel resection and laparoscopic repair of incarcerated hernia Obesity Plan Back pain is improved compared to yesterday Titrate oxygen flow to maintain saturation above 90%, currently on 3 L Provide the patient incentive spirometer. Continue DuoNeb updrafts Continue Symbicort [place] for pain control IV fluids to KVO No indication for pneumonia antibiotics can be discontinued Monitor renal function, improved and the creatinine is at 1.7 heparin subcu 5000 units every 12 hours for DVT prophylaxis Will follow
== END 2024-05-17 15:38 | disposition home or self-care (01) | DRG 477 ==
LOC: EC 13:19 → 6NMEDSUR 16:48 → OBSVTOIN 05-12 13:30 → 4SSUR 05-14 18:46
PROVIDERS: ADMIT Family Medicine; ATTEND Family Medicine
PROC: 0PB43ZX Excision of Thoracic Vertebra, Percutaneous Approach, Diagnostic (ICD-10-PCS; 2024-05-14)
PROC: 0PU43JZ Supplement Thoracic Vertebra with Synthetic Substitute, Percutaneous Approach (ICD-10-PCS; 2024-05-14)
PROC: 0PS43ZZ Reposition Thoracic Vertebra, Percutaneous Approach (ICD-10-PCS; principal; 2024-05-14 11:00)
DX: M80.08XA Age-related osteoporosis with current pathological fracture, vertebra(e), initial encounter for fracture (principal); G92.8 Other toxic encephalopathy; J96.21 Acute and chronic respiratory failure with hypoxia; J84.10 Pulmonary fibrosis, unspecified; Z99.81 Dependence on supplemental oxygen; E78.5 Hyperlipidemia, unspecified; G89.29 Other chronic pain; I11.9 Hypertensive heart disease without heart failure; I25.10 Atherosclerotic heart disease of native coronary artery without angina pectoris; I73.9 Peripheral vascular disease, unspecified; J44.9 Chronic obstructive pulmonary disease, unspecified; K21.9 Gastro-esophageal reflux disease without esophagitis; M79.7 Fibromyalgia; F41.0 Panic disorder [episodic paroxysmal anxiety]; T42.4X5A Adverse effect of benzodiazepines, initial encounter; Z87.19 Personal history of other diseases of the digestive system; Z79.899 Other long term (current) drug therapy; Z79.82 Long term (current) use of aspirin; Z79.84 Long term (current) use of oral hypoglycemic drugs; Z79.51 Long term (current) use of inhaled steroids; Z86.718 Personal history of other venous thrombosis and embolism; Z87.442 Personal history of urinary calculi; Z87.891 Personal history of nicotine dependence; Z95.5 Presence of coronary angioplasty implant and graft; Z88.5 Allergy status to narcotic agent; Z82.49 Family history of ischemic heart disease and other diseases of the circulatory system
CPT/HCPCS: 36415; 36600; 70450; 71045; 71275; 72070; 72146; 80048; 80053; 80061; 81001; 82805; 83605; 83690; 83735; 84145; 84484; 85025; 85379; 85610; 85730; 86140; 87040; 87636; 88307; 88311; 93005; 93306; 94640; 94760; 96361; 96374; 96375; 99285

== ENCOUNTER 2024-06-17 15:28 | Emergency (ER) | payer MEDICARE ==
[2024-06-17 16:02] VITALS: BP 188/78; PULSE 65; RESP 18; TEMP 98.5
--- NOTE | 2024-06-17 16:19 | ED ---
General Adult HPI - General Chief complaint: Back Pain/Injury Stated complaint: low back pain Time Seen by Provider: 06/17/24 15:40 Source: patient, RN notes reviewed Mode of arrival: wheelchair Limitations: no limitations - History of Present Illness Initial comments: This is a 68-year-old female presenting to the emergency department for chief complaint of mid thoracic back pain that is described as a stabbing sensation. she has been having a difficult time sleeping at night due to the pain. States that she had a vertebroplasty completed about 3 to [address] Sosa and has been experiencing pain since. States that pain is worse in her back and exacerbated on inspiration. She endorses shortness of breath and chest pain. Previous history of cardiac and lower extremity stent placement. she denies upper extremity parasthesias, peripheral edema, history of prolonged travel. - Related Data Home Medications Medication Instructions Recorded Confirmed clonazePAM [Clonazepam] 1 mg PO BID 02/20/14 05/10/24 Aspirin EC [Ecotrin Low Dose] 81 mg PO HS 01/27/20 05/10/24 Sertraline [Zoloft] 50 mg PO DAILY 06/28/22 05/10/24 hydrALAZINE HCL [Apresoline] 100 mg PO HS 10/18/22 05/10/24 Budesonide/Glycopyr/Formoterol 2 puff INHALATION RT-BID 05/03/23 05/10/24 [Breztri Aerosphere Inhaler] Ipratropium-Albuterol Nebulize 3 ml INHALATION RT-BID 05/03/23 05/10/24 [Duoneb 0.5 mg-3 mg/3 ml Soln] Potassium Chloride ER [K-Dur 20] 20 meq PO HS 05/03/23 05/10/24 atenoloL [Tenormin] 50 mg PO HS 05/03/23 05/10/24 Nitroglycerin Sl Tabs [Nitrostat] 0.4 mg SL Q5M PRN 06/09/23 05/10/24 Atorvastatin [Lipitor] 80 mg PO HS 05/10/24 05/10/24 HYDROcodone/APAP 5-325MG [[place] 1 tab PO Q6HR PRN 05/10/24 05/10/24 5-325] Immune Triple Support 1 tab PO HS 05/10/24 05/10/24 Linaclotide [Linzess] 290 mcg PO HS PRN 05/10/24 05/10/24 Magnesium Oxide [Mag-Ox] 400 mg PO HS 05/10/24 05/10/24 amLODIPine [Norvasc] 10 mg PO HS 05/10/24 05/10/24 methocarbamoL [Robaxin-750] 750 mg PO BID PRN 05/10/24 05/10/24 traMADol HCl [Ultram] 50 mg PO BID PRN 05/10/24 05/10/24 Previous Rx's Medication Instructions Recorded Pantoprazole [Protonix] 40 mg PO AC-BID 90 Days #180 tab 10/05/22 HYDROcodone/APAP 5-325MG [[place] 1 tab PO Q6HR PRN 7 Days #28 tab 05/14/24 5-325] Benzocaine/Menthol Lozeng [Cepacol 1 each MUCOUS MEM Q4HR PRN lozenge 05/17/24 lozenge] Budesonide-Formot 160-4.5 Mcg 2 puff INHALATION RT-BID each 05/17/24 [Symbicort 160-4.5 Mcg Inhaler] Dapagliflozin Propanediol [Farxiga] 5 mg PO DAILY 90 Days #90 tab 05/17/24 Furosemide [Lasix] 20 mg PO DAILY 90 Days #90 tab 05/17/24 Lactulose [Cephulac] 20 gm PO TID PRN 30 Days #90 ml 05/17/24 cefuroxime axetiL [Ceftin] 500 mg PO BID #10 tab 05/17/24 HYDROcodone/APAP 10-325MG [[place] 1 tab PO Q6HR PRN 3 Days #12 tab 06/17/24 10-325] Allergies Allergy/AdvReac Type Severity Reaction Status Date / Time hydrocodone bitartrate AdvReac Nausea & Verified 06/17/24 16:02 [From Vicodin] Vomiting propoxyphene napsylate AdvReac Nausea & Verified 06/17/24 16:02 [From Darvocet-N 100] Vomiting Review of Systems ROS Statement: Those systems with pertinent positive or pertinent negative responses have been documented in the HPI. ROS Other: All systems not noted in ROS Statement are negative. Past Medical History Past Medical History: Coronary Artery Disease (CAD), COPD, Deep Vein Thrombosis (DVT), Fibromyalgia, GERD/Reflux, Hyperlipidemia, Hypertension, Osteoarthritis (OA), Skin Disorder Additional Past Medical History / Comment(s): DIVERTICULITIS, HX KIDNEY STONE- still has it but it's never moved , Pneumonia, ROSACEA, DVT RLE 2007,gerson cataracts, BILAT ILIAC ARTERIES BLOCKED PER PT, pulmonary fibrosis History of Any Multi-Drug Resistant Organisms: None Reported Past Surgical History: Appendectomy, Bowel Resection, Heart Catheterization With Stent, Hernia Repair, Tubal Ligation Additional Past Surgical History / Comment(s): COLONOSCOPY, PARTIAL LT LOBECTOMY-(pt stated they thought i might of had tb but it was just scar tissue), D & C, 07-17-14 BOWEL RESECTION, [place] [facility] [place] , 12-18-17 lap robotic assisted repair of inc hernia Past Anesthesia/Blood Transfusion Reactions: No Reported Reaction Date of Last Stent Placement:: [place] [facility] [place] Psychological History: Anxiety, Panic Disorder Smoking Status: Former smoker Past Alcohol Use History: None Reported Past Drug Use History: None Reported - Past Family History Mother Family Medical History: Congestive Heart Failure (CHF) Father Family Medical History: Cancer Additional Family Medical History / Comment(s): TYPE OF CANCER NOT KNOWN General Exam - General Exam Comments Initial Comments: Visual Physical Exam Vital signs reviewed General: Well-appearing, nontoxic, no acute distress. Head: Normocephalic, atraumatic Eyes: PERRLA, EOMI ENT: Airway patent Chest: Nonlabored breathing Skin: No visual rash, normal skin tone Neuro: Alert and oriented 3 Musculoskeletal: No gross abnormalities Limitations: no limitations Head exam: Present: atraumatic, normocephalic, normal inspection ENT exam: Present: normal exam, mucous membranes moist Respiratory exam: Present: normal lung sounds bilaterally. Absent: respiratory distress, wheezes, rales, rhonchi, stridor Cardiovascular Exam: Present: regular rate, normal rhythm, normal heart sounds. Absent: systolic murmur, diastolic murmur, rubs, gallop, clicks GI/Abdominal exam: Present: soft, normal bowel sounds. Absent: distended, tenderness, guarding, rebound, rigid Extremities exam: Present: normal inspection, full ROM, normal capillary refill. Absent: tenderness, pedal edema, joint swelling, calf tenderness Back exam: Present: tenderness (thoracic). Absent: CVA tenderness (R), CVA tenderness (L) Neurological exam: Present: alert, oriented X3, CN II-XII intact Course Vital Signs 06/17/24 16:00 Temperature 98.5 F Pulse Rate 65 Respiratory 18 Rate Blood Pressure 188/78 O2 Sat by Pulse 91 L Oximetry Medical Decision Making - Medical Decision Making Was pt. sent in by a medical professional or institution (, PA, ENGINEER SYSTEM ADMINISTRATOR, urgent care, hospital, or fdc...) When possible be specific @ -No Did you speak to anyone other than the patient for history (EMS, parent, family, police, friend...)? What history was obtained from this source @ -No Did you review nursing and triage notes (agree or disagree)? Why? @ -I reviewed and agree with nursing and triage notes Were old charts reviewed (outside hosp., previous admission, EMS record, old EKG, old radiological studies, urgent care reports/EKG's, fdc records)? Report findings @ -No old charts were reviewed Differential Diagnosis (chest pain, altered mental status, abdominal pain women, abdominal pain men, vaginal bleeding, weakness, fever, dyspnea, syncope, headache, dizziness, GI bleed, back pain, seizure, CVA, palpatations, mental health, musculoskeletal)? @ -Differential Back Pain: Strain, zoster, cauda equina syndrome, epidural abscess, vertebral osteomyelitis, discitis, fracture, subluxation, disc herniation, DJD, spinal stenosis, dissection, AAA, pancreatitis, peptic ulcer disease, pyelonephritis, kidney stone, this is not meant to be an all-inclusive list. EKG interpreted by me (3pts min.). @ -Completed at 1658 sinus rhythm with a ventricular of 60, parable 164, QRS 88, QTc 403. X-rays interpreted by me (1pt min.). @ -X-ray of the thoracic spine remarkable for a new compression deformity at T7. X-ray of the chest no acute cardiopulmonary process. CT interpreted by me (1pt min.). @ -None done U/S interpreted by me (1pt. min.). @ -None done What testing was considered but not performed or refused? (CT, X-rays, U/S, labs)? Why? @ -None What meds were considered but not given or refused? Why? @ -None Did you discuss the management of the patient with other professionals (professionals i.e. , PA, ENGINEER SYSTEM ADMINISTRATOR, lab, RT, psych nurse, social worker delinquency prevention, glue jointer feeder, teacher, school resource officer, correctional case manager)? Give summary @ -No Was smoking cessation discussed for >3mins.? @ -No Was critical care preformed (if so, how long)? @ -No Were there social determinants of health that impacted care today? How? (Homelessness, low income, unemployed, alcoholism, drug addiction, transportation, low edu. Level, literacy, decrease access to med. care, longterm, rehab)? @ -No Was there de-escalation of care discussed even if they declined (Discuss DNR or withdrawal of care, Hospice)? DNR status @ -No What co-morbidities impacted this encounter? (DM, HTN, Smoking, COPD, CAD, Cancer, CVA, ARF, Chemo, Hep., AIDS, mental health diagnosis, sleep apnea, morbid obesity)? @ -None Was patient admitted / discharged? Hospital course, mention meds given and route, prescriptions, significant lab abnormalities, going to OR and other pertinent info. @ -Discharge. 68-year-old female with thoracic back pain. Patient's initial oxygen saturation 91% on room air. Patient has pain to palpation of thoracic spine that is worse with range of motion and on palpation with no overlying skin changes. With concern for thoracic back pain with radiation to the chest patient will undergo cardiac workup in addition to imaging of the thoracic spine. Patient is provided with pain medication as well. X-ray thoracic spine remarkable for a compression deformity at T7. Cardiac workup including troponin unremarkable. Patient is provided with description for pain medication and instructed to follow-up with orthopedic trade specialist outpatient for further evaluation for continuation of care. Repeat oxygen saturation 96% on room air patient states that this is at her baseline as she does have a history of COPD. Discussed with Dr. Lezama Undiagnosed new problem with uncertain prognosis? @ -No Drug Therapy requiring intensive monitoring for toxicity (Heparin, Nitro, Insulin, Cardizem)? @ -No Were any procedures done? @ -No Diagnosis/symptom? @ -Compression fracture of thoracic vertebrae, chronic pain Acute, or Chronic, or Acute on Chronic? @ -Acute Uncomplicated (without systemic symptoms) or Complicated (systemic symptoms)? @ -Uncomplicated Side effects of treatment? @ -No Exacerbation, Progression, or Severe Exacerbation? @ -No Poses a threat to life or bodily function? How? (Chest pain, [place], [place], pneumonia, PE, COPD, DKA, ARF, appy, cholecystitis, CVA, Diverticulitis, Homicidal, Suicidal, threat to staff... and all critical care pts) @ -No - Lab Data Result diagrams: 06/17/24 17:08 06/17/24 17:08 Lab Results 06/17/24 06/17/24 06/17/24 Range/Units 17:08 17:08 17:08 WBC 8.8 (3.8-10.6) k/uL RBC 4.39 (3.80-5.40) m/uL Hgb 13.4 (11.4-16.0) gm/dL Hct 41.0 (34.0-46.0) % MCV 93.3 (80.0-100.0) fL MCH 30.4 (25.0-35.0) pg MCHC 32.6 (31.0-37.0) g/dL RDW 14.3 (11.5-15.5) % Plt Count 238 (150-450) k/uL MPV 6.8 Neutrophils % 82 % Lymphocytes % 10 % Monocytes % 4 % Eosinophils % 3 % Basophils % 0 % Neutrophils # 7.2 (1.3-7.7) k/uL Lymphocytes # 0.8 L (1.0-4.8) k/uL Monocytes # 0.3 (0-1.0) k/uL Eosinophils # 0.3 (0-0.7) k/uL Basophils # 0.0 (0-0.2) k/uL PT 10.6 (10.0-12.5) sec INR 1.0 (<1.2) APTT 24.5 (22.0-30.0) sec Sodium 139 (137-145) mmol/L Potassium 3.8 (3.5-5.1) mmol/L Chloride 105 (98-107) mmol/L Carbon Dioxide 25 (22-30) mmol/L Anion Gap 9 mmol/L BUN 25 H (7-17) mg/dL Creatinine 1.16 H (0.52-1.04) mg/dL Est GFR (CKD-EPI)AfAm 56 (>60 ml/min/1.73 sqM) Est GFR (CKD-EPI)NonAf 48 (>60 ml/min/1.73 sqM) Glucose 110 H (74-99) mg/dL Calcium 9.4 (8.4-10.2) mg/dL Magnesium 1.8 (1.6-2.3) mg/dL Total Bilirubin 0.7 (0.2-1.3) mg/dL AST 20 (14-36) U/L ALT 14 (4-34) U/L Alkaline Phosphatase 138 H (38-126) U/L Troponin I (0.000-0.034) ng/mL Total Protein 7.9 (6.3-8.2) g/dL Albumin 4.4 (3.5-5.0) g/dL 06/17/24 Range/Units 17:08 WBC (3.8-10.6) k/uL RBC (3.80-5.40) m/uL Hgb (11.4-16.0) gm/dL Hct (34.0-46.0) % MCV (80.0-100.0) fL MCH (25.0-35.0) pg MCHC (31.0-37.0) g/dL RDW (11.5-15.5) % Plt Count (150-450) k/uL MPV Neutrophils % % Lymphocytes % % Monocytes % % Eosinophils % % Basophils % % Neutrophils # (1.3-7.7) k/uL Lymphocytes # (1.0-4.8) k/uL Monocytes # (0-1.0) k/uL Eosinophils # (0-0.7) k/uL Basophils # (0-0.2) k/uL PT (10.0-12.5) sec INR (<1.2) APTT (22.0-30.0) sec Sodium (137-145) mmol/L Potassium (3.5-5.1) mmol/L Chloride (98-107) mmol/L Carbon Dioxide (22-30) mmol/L Anion Gap mmol/L BUN (7-17) mg/dL Creatinine (0.52-1.04) mg/dL Est GFR (CKD-EPI)AfAm (>60 ml/min/1.73 sqM) Est GFR (CKD-EPI)NonAf (>60 ml/min/1.73 sqM) Glucose (74-99) mg/dL Calcium (8.4-10.2) mg/dL Magnesium (1.6-2.3) mg/dL Total Bilirubin (0.2-1.3) mg/dL AST (14-36) U/L ALT (4-34) U/L Alkaline Phosphatase (38-126) U/L Troponin I <0.012 (0.000-0.034) ng/mL Total Protein (6.3-8.2) g/dL Albumin (3.5-5.0) g/dL Disposition Clinical Impression: Compression fracture of T7 vertebra Disposition: HOME SELF-CARE Condition: Good Instructions (If sedation given, give patient instructions): Vertebral C ompression Fracture (ED) Additional Instructions: Please return to the Emergency Department if symptoms worsen or any other concerns. Recommend that you contact your orthopedic trade specialist to follow-up in the next 1 to 2 days for further evaluation. Continue to take pain medication as needed. Prescriptions: HYDROcodone/APAP 10-325MG [[place] 10-325] 1 tab PO Q6HR PRN 3 Days #12 tab PRN Reason: Severe Pain (Scale 7 To 10) Is patient prescribed a controlled substance at d/c from ED?: No Referrals: Gregorio Garber MD [Primary Care Provider] - 1-2 days Time of Disposition: 17:59
--- NOTE | 2024-06-17 17:06 | XR ---
EXAMINATION TYPE: XR chest 2V DATE OF EXAM: 06/17/2024 4:44 PM COMPARISON: None. CLINICAL INDICATION: Female, 68 years old with history of Chest pain, TECHNIQUE: XR chest 2V view(s) obtained. FINDINGS: The heart size is normal. The pulmonary vasculature is normal. Mild infiltrate left lower lobe. Correlate for atelectasis. Prior vertebroplasty is evident IMPRESSION: 1. Mild left lower lobe infiltrate. Correlate for atelectasis. Pneumonia could be considered. Follow- up can be performed as clinically indicated [facility], , 06/17/2024 5:03 PM
--- NOTE | 2024-06-17 17:09 | XR ---
EXAMINATION TYPE: XR thoracic spine 2V DATE OF EXAM: 06/17/2024 4:44 PM COMPARISON: None. CLINICAL INDICATION: Female, 68 years old with history of pain, TECHNIQUE: 3 view(s) obtained. FINDINGS: There is a compression deformity of vertebral plasty at approximately T6 level. There is a compression deformity in the region of T7. This was not evident on the fluoroscopy images of 05/14/2024 appears to be an acute interval finding. There may be some mild inferior endplate deformity at T11 in the sagittal plane. Remaining vertebral body heights are preserved. Scoliosis of the thoracolumbar spine IMPRESSION: 1. New compression deformity at T7 [facility], , 06/17/2024 5:07 PM
[2024-06-17 17:15] LABS: Basophils % (A) 0 %; Eosinophils % (A) 3 %; HGB 13.4 gm/dL (11.4-16.0); Lymphocytes % (A) 10 %; MCH 30.4 pg (25.0-35.0); MCHC 32.6 g/dL (31.0-37.0); MCV 93.3 fL (80.0-100.0); Mean Platelet Volume 6.8; Monocytes % (A) 4 %; Neutrophils % (A) 82 %; Platelet Count 238 k/uL (150-450); RBC 4.39 m/uL (3.80-5.40); RDW 14.3 % (11.5-15.5); WBC 8.8 k/uL (3.8-10.6)
[2024-06-17 17:16] LABS: Eosinophils # (A) 0.3 k/uL (0-0.7); Lymphocytes # (A) 0.8 k/uL (1.0-4.8); Monocytes # (A) 0.3 k/uL (0-1.0); Neutrophils # (A) 7.2 k/uL (1.3-7.7)
[2024-06-17 17:25] LABS: Partial Thromboplastin Time 24.5 sec (22.0-30.0); Prothrombin Time 10.6 sec (10.0-12.5)
[2024-06-17 17:26] LABS: ALT 14 U/L (4-34); AST 20 U/L (14-36); African American GFR (CKD) 56 (>60 ml/min/1.73 sqM); Albumin 4.4 g/dL (3.5-5.0); Alkaline Phosphatase 138 U/L (38-126); Anion Gap 9 mmol/L; Blood Urea Nitrogen 25 mg/dL (7-17); Calcium 9.4 mg/dL (8.4-10.2); Carbon Dioxide 25 mmol/L (22-30); Chloride 105 mmol/L (98-107); Glucose 110 mg/dL (74-99); Magnesium 1.8 mg/dL (1.6-2.3); Non-African American GFR(CKD) 48 (>60 ml/min/1.73 sqM); Potassium 3.8 mmol/L (3.5-5.1); Sodium 139 mmol/L (137-145); Total Bilirubin 0.7 mg/dL (0.2-1.3); Total Protein 7.9 g/dL (6.3-8.2)
[2024-06-17] MEDS: HYDROmorphone 0.5 MG/0.5 ML SYRINGE IVP STA (19:42)
== END 2024-06-17 19:48 | disposition home or self-care (01) ==
LOC: EC 15:28
DX: S22.069A Unspecified fracture of T7-T8 vertebra, initial encounter for closed fracture (principal); Z87.891 Personal history of nicotine dependence; Z88.8 Allergy status to other drugs, medicaments and biological substances; X58.XXXA Exposure to other specified factors, initial encounter
CPT/HCPCS: 36415; 80053; 83735; 84484; 85025; 85610; 85730; 72070; 71046; 99284; 96374; J1171

== ENCOUNTER 2024-07-09 20:14 | Observation (INO) | payer MEDICARE ==
--- NOTE | 2024-07-09 20:43 | ED ---
Chest Pain HPI - General Chief Complaint: Chest Pain Stated Complaint: chest pain Time Seen by Provider: 07/09/24 20:41 Source: patient, RN notes reviewed, old records reviewed Mode of arrival: ambulatory Limitations: no limitations - History of Present Illness Initial Comments: This is a 68-year-old female to ER with right-sided chest pain chest pain under her right rib which feels like prior episodes of pneumonia. Patient has history of back pain chronic back pain with multiple surgeries and patient complaining of what she believes is pneumonia type symptoms today with cough congestion and right-sided chest pain right-sided rib pain. MD Complaint: chest pain, other (Right-sided rib pain) -: days(s) Onset: during rest, during exertion Pain Location: right chest Pain Radiation: back Severity: moderate Severity scale (1-10): 4 Quality: sharp Consistency: constant Improves With: nothing Context: recent illness Treatments Prior to Arrival: none - Related Data Home Medications Medication Instructions Recorded Confirmed clonazePAM [Clonazepam] 1 mg PO BID 02/20/14 07/10/24 Aspirin EC [Ecotrin Low Dose] 81 mg PO HS 01/27/20 07/10/24 Sertraline [Zoloft] 50 mg PO DAILY 06/28/22 07/10/24 hydrALAZINE HCL [Apresoline] 100 mg PO HS 10/18/22 07/10/24 Ipratropium-Albuterol Nebulize 3 ml INHALATION RT-BID 05/03/23 07/10/24 [Duoneb 0.5 mg-3 mg/3 ml Soln] Potassium Chloride ER [K-Dur 20] 20 meq PO HS 05/03/23 07/10/24 atenoloL [Tenormin] 50 mg PO HS 05/03/23 07/10/24 Nitroglycerin Sl Tabs [Nitrostat] 0.4 mg SL Q5M PRN 06/09/23 07/10/24 Atorvastatin [Lipitor] 80 mg PO HS 05/10/24 07/10/24 Immune Triple Support 1 tab PO HS 05/10/24 07/10/24 Linaclotide [Linzess] 290 mcg PO HS PRN 05/10/24 07/10/24 Magnesium Oxide [Mag-Ox] 400 mg PO HS 05/10/24 07/10/24 amLODIPine [Norvasc] 10 mg PO HS 05/10/24 07/10/24 methocarbamoL [Robaxin-750] 750 mg PO BID PRN 05/10/24 07/10/24 HYDROcodone/APAP 7.5-325MG [[place] 1 tab PO TID PRN 07/10/24 07/10/24 7.5-325] Previous Rx's Medication Instructions Recorded Pantoprazole [Protonix] 40 mg PO AC-BID 90 Days #180 tab 10/05/22 Budesonide-Formot 160-4.5 Mcg 2 puff INHALATION RT-BID each 05/17/24 [Symbicort 160-4.5 Mcg Inhaler] Furosemide [Lasix] 20 mg PO DAILY 90 Days #90 tab 05/17/24 Benzonatate [Tessalon Perles] 200 mg PO TID 7 Days #21 cap 07/13/24 Doxycycline [Vibramycin] 100 mg PO BID 7 Days #14 cap 07/13/24 Lactulose [Cephulac] 30 gm PO BID 30 Days #60 ml 07/13/24 Allergies Allergy/AdvReac Type Severity Reaction Status Date / Time hydrocodone bitartrate AdvReac Nausea & Verified 07/10/24 07:55 [From Vicodin] Vomiting - DENIES Reaction propoxyphene napsylate AdvReac Nausea & Verified 07/10/24 07:55 [From Darvocet-N 100] Vomiting - DENIES Reaction Review of Systems ROS Statement: Those systems with pertinent positive or pertinent negative responses have been documented in the HPI. ROS Other: All systems not noted in ROS Statement are negative. EKG Findings - EKG Comments: EKG Findings:: EKG is sinus 61 CO 170 QRS 84 QTc 394 - EKG Results: EKG: interpreted by ERMD Past Medical History Past Medical History: Coronary Artery Disease (CAD), COPD, Deep Vein Thrombosis (DVT), Fibromyalgia, GERD/Reflux, Hyperlipidemia, Hypertension, Osteoarthritis (OA), Skin Disorder Additional Past Medical History / Comment(s): DIVERTICULITIS, HX KIDNEY STONE- still has it but it's never moved , Pneumonia, ROSACEA, DVT RLE 2007,gerson cataracts, BILAT ILIAC ARTERIES BLOCKED PER PT, pulmonary fibrosis History of Any Multi-Drug Resistant Organisms: None Reported Past Surgical History: Appendectomy, Bowel Resection, Heart Catheterization With Stent, Hernia Repair, Tubal Ligation Additional Past Surgical History / Comment(s): COLONOSCOPY, PARTIAL LT LOBECTOMY-(pt stated they thought i might of had tb but it was just scar tissue), D & C, 07-17-14 BOWEL RESECTION, HEART CATH W 2 STENTS AT [facility] [place] 11-15-15 , 12-18-17 lap robotic assisted repair of inc hernia Past Anesthesia/Blood Transfusion Reactions: No Reported Reaction Date of Last Stent Placement:: 11-15-15 AT [facility] [place] Past Psychological History: Anxiety, Panic Disorder Smoking Status: Former smoker Past Alcohol Use History: None Reported Past Drug Use History: None Reported - Past Family History Mother Family Medical History: Congestive Heart Failure (CHF) Father Family Medical History: Cancer Additional Family Medical History / Comment(s): TYPE OF CANCER NOT KNOWN General Exam Limitations: no limitations General appearance: alert, in no apparent distress Head exam: Present: atraumatic, normocephalic, normal inspection Eye exam: Present: normal appearance, PERRL, EOMI. Absent: scleral icterus, conjunctival injection, periorbital swelling ENT exam: Present: normal exam, mucous membranes moist Neck exam: Present: normal inspection. Absent: tenderness, meningismus, lymphadenopathy Respiratory exam: Present: normal lung sounds bilaterally. Absent: respiratory distress, wheezes, rales, rhonchi, stridor Cardiovascular Exam: Present: regular rate, normal rhythm, normal heart sounds. Absent: systolic murmur, diastolic murmur, rubs, gallop, clicks GI/Abdominal exam: Present: soft, normal bowel sounds. Absent: distended, tenderness, guarding, rebound, rigid Extremities exam: Present: normal inspection, full ROM, normal capillary refill. Absent: tenderness, pedal edema, joint swelling, calf tenderness Back exam: Present: normal inspection Neurological exam: Present: alert, oriented X3, CN II-XII intact Psychiatric exam: Present: normal affect, normal mood Skin exam: Present: warm, dry, intact, normal color. Absent: rash Course Vital Signs 07/09/24 07/09/24 07/09/24 20:27 21:40 22:07 Temperature 97.6 F Pulse Rate 64 57 L Respiratory 18 20 18 Rate Blood Pressure 189/93 166/86 Blood Pressure [Left Arm Supine] O2 Sat by Pulse 96 94 L 95 Oximetry 07/09/24 07/09/24 07/10/24 23:01 23:26 00:33 Temperature Pulse Rate 59 L 64 80 Respiratory 15 Rate Blood Pressure 152/61 Blood Pressure [Left Arm Supine] O2 Sat by Pulse 98 Oximetry 07/10/24 07/10/24 07/10/24 01:11 02:00 04:30 Temperature Pulse Rate 80 67 64 Respiratory 14 18 18 Rate Blood Pressure 147/70 143/74 130/77 Blood Pressure [Left Arm Supine] O2 Sat by Pulse 97 97 99 Oximetry 07/10/24 07/10/24 07/10/24 09:00 09:54 12:22 Temperature Pulse Rate 58 L 74 65 Respiratory 18 18 Rate Blood Pressure 171/65 Blood Pressure [Left Arm Supine] O2 Sat by Pulse 95 94 L Oximetry 07/10/24 07/10/24 07/10/24 16:11 16:36 16:44 Temperature Pulse Rate 73 72 Respiratory 20 18 Rate Blood Pressure 195/76 Blood Pressure [Left Arm Supine] O2 Sat by Pulse Oximetry 07/10/24 07/10/24 07/10/24 18:07 18:27 20:00 Temperature 98.0 F Pulse Rate 103 H 101 H Respiratory 16 18 18 Rate Blood Pressure 199/80 176/80 Blood Pressure 172/76 [Left Arm Supine] O2 Sat by Pulse 95 95 95 Oximetry 07/10/24 07/10/24 07/10/24 20:21 20:27 20:33 Temperature Pulse Rate 112 H 101 H 108 H Respiratory 18 Rate Blood Pressure 124/90 Blood Pressure [Left Arm Supine] O2 Sat by Pulse 97 Oximetry - Reevaluation(s) Reevaluation #1: 07/09/24 21:36 Medical records reviewed Reevaluation #2: 07/09/24 21:46 Patient symptoms unchanged Reevaluation #3: 07/09/24 21:47 Patient informed of results and questions answered Reevaluation #4: Was pt. sent in by a medical professional or institution (, PA, EROSION CONTROL SPECIALIST, urgent care, hospital, or [facility]...) When possible be specific @ -no Did you speak to anyone other than the patient for history (EMS, parent, family, police, friend...)? What history was obtained from this source @ -no Did you review nursing and triage notes (agree or disagree)? Why? @ -agree Are old charts reviewed (outside hosp., previous admission, EMS record, old EKG, old radiological studies, urgent care reports/EKG's, [facility] records)? Report findings @ -yes Differential Diagnosis (chest pain, altered mental status, abdominal pain women, abdominal pain men, vaginal bleeding, weakness, fever, dyspnea, syncope, headache, dizziness, GI bleed, back pain, seizure, CVA, palpatations, mental health, musculoskeletal)? @ -prior EKG interpreted by me (3pts min.). @ -yes X-rays interpreted by me (1pt min.). @ -yes positive for CHF and atypical pneumonia CT interpreted by me (1pt min.). @ -no U/S interpreted by me (1pt. min.). @ -no What testing was considered but not performed or refused? (CT, X-rays, U/S, labs)? Why? @ -none What meds were considered but not given or refused? Why? @ -none Did you discuss the management of the patient with other professionals (professionals i.e. , PA, EROSION CONTROL SPECIALIST, lab, RT, psych nurse, professor of social work, respiratory care instructor, teacher, nuclear security officer, watch caser)? Give summary @ -no Was smoking cessation discussed for >3mins.? @ -no Was critical care preformed (if so, how long)? @ -no Were there social determinants of health that impacted care today? How? (Homelessness, low income, unemployed, alcoholism, drug addiction, transportation, low edu. Level, literacy, decrease access to med. care, usp, rehab)? @ -none Was there de-escalation of care discussed even if they declined (Discuss DNR or withdrawal of care, Hospice)? DNR status @ -no What co-morbidities impacted this encounter? (DM, HTN, Smoking, COPD, CAD, Cancer, CVA, ARF, Chemo, Hep., AIDS, mental health diagnosis, sleep apnea, morbid obesity)? @ -none Was patient admitted / discharged? Hospital course, mention meds given and route, prescriptions, significant lab abnormalities, going to OR and other pertinent info. @ - 68 female to ER for evaluation of chest pain right-sided chest pain and rib pain. Patient does have diffuse pneumonia atypical pneumonia. Patient was here few weeks ago with chest pain and pneumonia as well. Also concern for CHF Admitted Undiagnosed new problem with uncertain prognosis? @ -no Drug Therapy requiring intensive monitoring for toxicity (Heparin, Nitro, Insulin, Cardizem)? @ -no Were any procedures done? @ -no Diagnosis/symptom? @ -Pneumonia CHF atypical pneumonia and chest pain Acute, or Chronic, or Acute on Chronic? @ -Acute Uncomplicated (without systemic symptoms) or Complicated (systemic symptoms)? @ -Complicated Side effects of treatment? @ -no Exacerbation, Progression, or Severe Exacerbation? @ -exacerbation Poses a threat to life or bodily function? How? (Chest pain, [place], [place], pneumonia, PE, COPD, DKA, ARF, appy, cholecystitis, CVA, Diverticulitis, Homicidal, Suicidal, threat to staff... and all critical care pts) @ -yes extremes of age Reevaluation #5: Differential Chest Pain: Stable Angina, Unstable Angina, STEMI, NSTEMI Aortic Dissection, Pneumothorax, Musculoskeletal, Esophageal Spasm GERD, Cholecystitis, Pancreatitis, Zoster, this is not meant to be an all-inclusive list. - Consultations Consultation #1: Spoke with Dr. Garber, who will admit this patient Chest Pain MDM - MDM 68 female to ER for evaluation of chest pain right-sided chest pain and rib pain. Patient does have diffuse pneumonia atypical pneumonia. Patient was here few weeks ago with chest pain and pneumonia as well. Also concern for CHF Disposition Clinical Impression: Atypical chest pain, COPD exacerbation, Dyspnea, Weakness, CHF (congestive heart failure), Pneumonia Disposition: ADMITTED IP TO THIS HOSP Condition: Fair Is patient prescribed a controlled substance at d/c from ED?: No
[2024-07-09 21:29] LABS: Basophils % (A) 0 %; Eosinophils # (A) 0.3 k/uL (0-0.7); Eosinophils % (A) 3 %; HCT 38.1 % (34.0-46.0); HGB 12.9 gm/dL (11.4-16.0); Lymphocytes % (A) 11 %; MCHC 33.9 g/dL (31.0-37.0); MCV 91.5 fL (80.0-100.0); Mean Platelet Volume 7.2; Monocytes # (A) 0.5 k/uL (0-1.0); Monocytes % (A) 6 %; Neutrophils # (A) 6.8 k/uL (1.3-7.7); Neutrophils % (A) 77 %; Platelet Count 313 k/uL (150-450); RBC 4.17 m/uL (3.80-5.40); RDW 13.8 % (11.5-15.5); WBC 8.9 k/uL (3.8-10.6)
[2024-07-09 21:33] LABS: INR 0.9 (<1.2); Partial Thromboplastin Time 22.3 sec (22.0-30.0); Prothrombin Time 10.4 sec (10.0-12.5)
--- NOTE | 2024-07-09 21:38 | XR ---
EXAMINATION TYPE: XR chest 2V DATE OF EXAM: 07/09/2024 9:15 PM COMPARISON: Previous chest radiograph 06/17/2024. CLINICAL INDICATION: Female, 68 years old with history of Chest Pain; [facility] TECHNIQUE: XR chest 2V Frontal and lateral views of the chest. FINDINGS: Cardiac silhouette stable. Patchy interstitial opacities bilaterally. Additional bibasilar atelectasis. No pneumothorax. Compression deformities throughout the thoracic spine with prior vertebral augmentation procedure. IMPRESSION: Patchy bilateral interstitial opacities and left lung base atelectasis. [facility], , 07/09/2024 9:36 PM
[2024-07-09] MEDS ORDERED: PNEUMONIA PROTOCOL UTILIZED 1 EACH MISC PO PRN (21:43)
[2024-07-09 21:45] LABS: ALT 14 U/L (4-34); AST 19 U/L (14-36); African American GFR (CKD) 48 (>60 ml/min/1.73 sqM); Albumin 4.1 g/dL (3.5-5.0); Alkaline Phosphatase 133 U/L (38-126); Anion Gap 8 mmol/L; Blood Urea Nitrogen 25 mg/dL (7-17); Calcium 9.2 mg/dL (8.4-10.2); Carbon Dioxide 27 mmol/L (22-30); Chloride 105 mmol/L (98-107); Glucose 109 mg/dL (74-99); Lipase 53 U/L (23-300); Magnesium 1.8 mg/dL (1.6-2.3); Non-African American GFR(CKD) 41 (>60 ml/min/1.73 sqM); Potassium 4.4 mmol/L (3.5-5.1); Sodium 140 mmol/L (137-145); Total Bilirubin 0.4 mg/dL (0.2-1.3); Total Protein 7.2 g/dL (6.3-8.2)
[2024-07-09 21:54] LABS: NT-Pro-B-Type Natriuretic Pept 1460 pg/mL
[2024-07-09] MEDS: KETOROLAC 15 MG/ML 1 ML VIAL IVP STA (22:14)
[2024-07-09] MEDS: HYDROmorphone 1 MG/ML 1 ML SYRINGE IVP STA (22:16)
[2024-07-09] MEDS: ONDANSETRON 4 MG/2 ML VIAL IVP STA (22:16)
[2024-07-09] MEDS: FUROSEMIDE 10 MG/ML 4 ML VIAL IV SCH (22:18)
[2024-07-09] MEDS: SODIUM CHLORIDE 0.9% 1,000 ML IV SCH (22:18)
[2024-07-09] MEDS: AZITHROMYCIN 500 MG in SODIUM CHLORIDE 0.9% 250 ML IVPB STA (22:28)
[2024-07-09] MEDS: IPRATROPIUM-ALBUTEROL 3 ML NEB INHALATION STA ×2 (22:58→22:59)
[2024-07-10] MEDS: PANTOPRAZOLE 40 MG TABLET PO STA (02:28)
[2024-07-10] MEDS: HYDROcodone/APAP 5-325MG 1 EACH TAB PO PRN (04:23)
[2024-07-10] MEDS: SYMBICORT 160-4.5 MCG INHALER INHALATION SCH (08:12)
[2024-07-10] MEDS: clonazePAM 1 MG TAB PO SCH ×2 (08:53→20:19)
[2024-07-10] MEDS: HEPARIN SODIUM,PORCINE 5,000 UNIT/ML 1 ML VIAL SQ SCH (08:53)
[2024-07-10] MEDS: methylPREDNISolone SOD SUCCI 40 MG/ML 1 ML VIAL IV SCH (08:59)
--- NOTE | 2024-07-10 09:21 | XR ---
EXAMINATION TYPE: XR chest 1V DATE OF EXAM: 07/10/2024 COMPARISON: 07/09/2024 CLINICAL INDICATION: Female, 68 years old with history of pneumonia; TECHNIQUE: Single frontal view of the chest is obtained. FINDINGS: Vertebroplasty changes mid thoracic spine. Heart mildly enlarged. Increasing interstitial density and increasing patchy medial right basilar retrocardiac density. IMPRESSION: 1. Mild cardiomegaly and interstitial densities which are increasing. Correlate for mild CHF. 2. Patchy medial bibasilar opacity is also slightly increased. [facility], , 07/10/2024 9:19 AM
--- NOTE | 2024-07-10 11:22 | P.CRDCN ---
History of Present Illness History of present illness: HISTORY OF PRESENT ILLNESS: This is a 68-year-old female with a past medical history significant for hypertension, hyperlipidemia, peripheral arterial disease, coronary artery disease, and chronic pain. Patient follows in the office with Dr. Kim. We have been asked to see the patient in consultation for CHF. Patient examined at the bedside in the emergency room. Patient is tearful and crying upon entering her room this morning. Patient states that she is wanting to be discharged home. However she states that she is having a lot of abdominal pain. She states that she came in with chest pain however upon further review it appears that the patient is having epigastric pain. She also reports having generalized abdominal pain. She states like she feels like her abdomen is distended. She currently denies having any chest pain or pressure. DIAGNOSTICS: - EKG reveals sinus mechanism with nonspecific ST-T wave changes. - Chest xray patchy bilateral interstitial opacities and left lung base atelectasis. - Laboratory data: WBC 8.9. Hemoglobin 12.9. Platelet count 313. Sodium 140. Potassium 4.4. BUN 25. Creatinine 1.32. Magnesium 1.8. Troponin negative x 3. proBNP 1460. - Current home cardiac medications include aspirin 81 mg daily, atorvastatin 80 mg at night, Lasix 20 mg daily, amlodipine 10 mg daily, atenolol 50 mg at night, hydralazine 100 mg at night. - Most recent echocardiogram obtained in May 2024 revealed ejection fraction 50 to 55%, mild to moderate MR trace to mild aortic regurgitation, mild TR - Patient underwent Lexiscan stress test in January 2020 which was negative for ischemia REVIEW OF SYSTEMS: At the time of my exam: CONSTITUTIONAL: Denies fever or chills. HEENT: Denies blurred vision, vision changes, or eye pain. Denies hemoptysis CARDIOVASCULAR: Denies chest pain. Denies orthopnea. Denies PND. Denies palpitations RESPIRATORY: Denies shortness of breath. GASTROINTESTINAL: Reports abdominal pain. Denies nausea or vomiting. HEMATOLOGIC: Denies bleeding disorders. GENITOURINARY: Denies any blood in urine. SKIN: Denies pruitis. Denies rash. PHYSICAL EXAM: VITAL SIGNS: Reviewed. GENERAL: Well-developed in no acute distress. HEENT: Head is normocephalic. Pupils are equal, round. Sclerae anicteric. Mucous membranes of the mouth are moist. Neck supple. No JVD or thyromegaly LUNGS: Respirations even and unlabored. Lungs essentially clear to auscultation bilaterally. HEART: Regular rate and rhythm. S1 and S2 heard. ABDOMEN: Soft. Nondistended. Nontender. EXTREMITIES: Normal range of motion. No clubbing or cyanosis. Peripheral pulses intact. No lower extremity edema NEUROLOGIC: Awake and alert. Oriented x 3. ASSESSMENT: Chest pain, atypical, troponin negative x 3 Possible pneumonia per chest x-ray Abdominal pain, etiology unclear Chronic heart failure with preserved EF, currently euvolemic Hypertension Hyperlipidemia Coronary artery disease Peripheral arterial disease Chronic pain Obesity: BMI 31.9 PLAN: An acute coronary event has been ruled out No need to obtain echocardiogram as this was performed in May 2024 Resume home cardiac medications Discontinue IV Lasix as patient is not fluid overloaded on upon examination. Resume home dose of oral Lasix. Consult general surgery for evaluation of abdominal pain. There is currently no GI coverage this week. Further recommendations pending patient course Nurse practitioner note has been reviewed by physician. Signing provider agrees with the documented findings, assessment, and plan of care documented by [employer] SECURITY PROFESSIONAL as a scribe. Past Medical History Past Medical History: Coronary Artery Disease (CAD), COPD, Deep Vein Thrombosis (DVT), Fibromyalgia, GERD/Reflux, Hyperlipidemia, Hypertension, Osteoarthritis (OA), Skin Disorder Additional Past Medical History / Comment(s): DIVERTICULITIS, HX KIDNEY STONE- still has it but it's never moved , Pneumonia, ROSACEA, DVT RLE 2007,gerson cataracts, BILAT ILIAC ARTERIES BLOCKED PER PT, pulmonary fibrosis History of Any Multi-Drug Resistant Organisms: None Reported Past Surgical History: Appendectomy, Bowel Resection, Heart Catheterization With Stent, Hernia Repair, Tubal Ligation Additional Past Surgical History / Comment(s): COLONOSCOPY, PARTIAL LT LOBECT ELIE-(pt stated they thought i might of had tb but it was just scar tissue), D & C, 07-17-14 BOWEL RESECTION, HEART CATH W 2 STENTS AT [facility] [place] 11-15-15 , 12-18-17 lap robotic assisted repair of inc hernia Past Anesthesia/Blood Transfusion Reactions: No Reported Reaction Date of Last Stent Placement:: 11-15-15 AT [facility] [place] Past Psychological History: Anxiety, Panic Disorder Smoking Status: Former smoker Past Alcohol Use History: None Reported Past Drug Use History: None Reported - Past Family History Mother Family Medical History: Congestive Heart Failure (CHF) Father Family Medical History: Cancer Additional Family Medical History / Comment(s): TYPE OF CANCER NOT KNOWN Medications and Allergies Home Medications Medication Instructions Recorded Confirmed Type clonazePAM [Clonazepam] 1 mg PO BID 02/20/14 07/10/24 History Aspirin EC [Ecotrin Low Dose] 81 mg PO HS 01/27/20 07/10/24 History Sertraline [Zoloft] 50 mg PO DAILY 06/28/22 07/10/24 History Pantoprazole [Protonix] 40 mg PO AC-BID 90 Days #180 tab 10/05/22 07/10/24 Rx hydrALAZINE HCL [Apresoline] 100 mg PO HS 10/18/22 07/10/24 History Ipratropium-Albuterol Nebulize 3 ml INHALATION RT-BID 05/03/23 07/10/24 History [Duoneb 0.5 mg-3 mg/3 ml Soln] Potassium Chloride ER [K-Dur 20] 20 meq PO HS 05/03/23 07/10/24 History atenoloL [Tenormin] 50 mg PO HS 05/03/23 07/10/24 History Nitroglycerin Sl Tabs [Nitrostat] 0.4 mg SL Q5M PRN 06/09/23 07/10/24 History Atorvastatin [Lipitor] 80 mg PO HS 05/10/24 07/10/24 History Immune Triple Support 1 tab PO HS 05/10/24 07/10/24 History Linaclotide [Linzess] 290 mcg PO HS PRN 05/10/24 07/10/24 History Magnesium Oxide [Mag-Ox] 400 mg PO HS 05/10/24 07/10/24 History amLODIPine [Norvasc] 10 mg PO HS 05/10/24 07/10/24 History methocarbamoL [Robaxin-750] 750 mg PO BID PRN 05/10/24 07/10/24 History Budesonide-Formot 160-4.5 Mcg 2 puff INHALATION RT-BID each 05/17/24 07/10/24 Rx [Symbicort 160-4.5 Mcg Inhaler] Furosemide [Lasix] 20 mg PO DAILY 90 Days #90 tab 05/17/24 07/10/24 Rx HYDROcodone/APAP 7.5-325MG [[place] 1 tab PO TID PRN 07/10/24 07/10/24 History 7.5-325] Allergies Allergy/AdvReac Type Severity Reaction Status Date / Time hydrocodone bitartrate AdvReac Nausea & Verified 07/10/24 07:55 [From Vicodin] Vomiting - DENIES Reaction propoxyphene napsylate AdvReac Nausea & Verified 07/10/24 07:55 [From Darvocet-N 100] Vomiting - DENIES Reaction Physical Exam Vitals: Vital Signs Temp Pulse Resp BP Pulse Ox 07/10/24 04:30 64 18 130/77 99 07/10/24 02:00 67 18 143/74 97 07/10/24 01:11 80 14 147/70 97 07/10/24 00:33 80 15 152/61 98 07/09/24 23:26 64 07/09/24 23:01 59 L 07/09/24 22:07 18 95 07/09/24 21:40 57 L 20 166/86 94 L 07/09/24 20:27 97.6 F 64 18 189/93 96 Intake and Output 07/09/24 07/10/24 07/10/24 22:59 06:59 14:59 Other: Weight 71.668 kg Results 07/09/24 21:05 07/09/24 21:05 Cardiac Enzymes 07/09/24 07/09/24 07/09/24 Range/Units 21:05 21:05 23:25 AST 19 (14-36) U/L Troponin I <0.012 <0.012 (0.000-0.034) ng/mL 07/10/24 Range/Units 03:06 AST (14-36) U/L Troponin I <0.012 (0.000-0.034) ng/mL Coagulation 07/09/24 Range/Units 21:05 PT 10.4 (10.0-12.5) sec APTT 22.3 (22.0-30.0) sec CBC 07/09/24 Range/Units 21:05 WBC 8.9 (3.8-10.6) k/uL RBC 4.17 (3.80-5.40) m/uL Hgb 12.9 (11.4-16.0) gm/dL Hct 38.1 (34.0-46.0) % Plt Count 313 (150-450) k/uL Comprehensive Metabolic Panel 07/09/24 Range/Units 21:05 Sodium 140 (137-145) mmol/L Potassium 4.4 (3.5-5.1) mmol/L Chloride 105 (98-107) mmol/L Carbon Dioxide 27 (22-30) mmol/L BUN 25 H (7-17) mg/dL Creatinine 1.32 H (0.52-1.04) mg/dL Glucose 109 H (74-99) mg/dL Calcium 9.2 (8.4-10.2) mg/dL AST 19 (14-36) U/L ALT 14 (4-34) U/L Alkaline Phosphatase 133 H (38-126) U/L Total Protein 7.2 (6.3-8.2) g/dL Albumin 4.1 (3.5-5.0) g/dL Current Medications Generic Name Dose Route Start Last Admin Trade Name Freq PRN Reason Stop Dose Admin Hydrocodone Bitart/Acetaminophen 1 each 07/10/24 02:27 07/10/24 04:23 Hydrocodone/Apap 5-325mg 1 Each Tab PO 1 each Q6HR PRN Administration Pain Albuterol Sulfate 2.5 mg 07/09/24 21:43 Albuterol Nebulized 2.5 Mg/3 Ml INHALATION RT-Q4H PRN Shortness Of Breath Or Wheezing Budesonide/Formoterol Fumarate 2 puff 07/10/24 08:00 07/10/24 08:12 Symbicort 160-4.5 Mcg Inhaler INHALATION 2 puff RT-BID JUAN J Administration Clonazepam 1 mg 07/10/24 09:00 07/10/24 08:53 Clonazepam 1 Mg Tab PO 1 mg BID JUAN J Administration Furosemide 40 mg 07/09/24 21:45 07/10/24 08:56 Furosemide 10 Mg/Ml 4 Ml Vial IV 40 mg Q12HR JUAN J Administration Heparin Sodium (Porcine) 5,000 unit 07/10/24 08:00 07/10/24 08:53 Heparin Sodium,Porcine 5,000 Unit/Ml 1 Ml Vial SQ 5,000 unit Q8HR JUAN J Administration Sodium Chloride 1,000 mls @ 100 mls/hr 07/09/24 21:45 07/10/24 08:52 Saline 0.9% IV 100 mls/hr .Q10H [facility] Administration Azithromycin 500 mg/ Sodium 250 mls @ 250 mls/hr 07/10/24 21:00 Chloride IVPB 07/11/24 21:59 DAILY@2100 [facility] Protocol Methylprednisolone Sodium Succinate 40 mg 07/10/24 08:00 Methylprednisolone Sod Succi 40 Mg/Ml 1 Ml Vial IV Q8HR [facility] Miscellaneous Information 1 each 07/09/24 21:43 Pneumonia Protocol Utilized 1 Each Misc PO ONCE PRN Per Protocol Nitroglycerin 1 inch 07/10/24 22:00 Nitroglycerin Oint 1 Inch/Gm Packet TOPICAL QID [facility] Pantoprazole Sodium 40 mg 07/11/24 07:30 Pantoprazole 40 Mg Tablet PO AC-BRKFST [facility] Intake and Output 07/09/24 07/10/24 07/10/24 22:59 06:59 14:59 Other: Weight 71.668 kg 07/09/24 21:05 07/09/24 21:05
--- NOTE | 2024-07-10 12:53 | XR ---
EXAMINATION TYPE: XR abdomen 2V DATE OF EXAM: 07/10/2024 11:54 AM COMPARISON: 04/20/2019 CLINICAL INDICATION: Female, 68 years old with history of abdominal pain, , FINDINGS: There is some patchy left basilar opacity. No evidence for free intraperitoneal air. No dilated small bowel or air-fluid levels. Moderate stool particularly in the right side of the abdomen. Scattered air is present throughout th e colon extending distally to the rectum. Vertebroplasty change L4 and L5 levels. Iliac vessels stents noted. IMPRESSION: 1. No evidence for free air or bowel obstruction. 2. Moderate stool in the right side of the abdomen. 3. Patchy left basilar opacity could represent atelectasis and/or consolidation. [facility], , 07/10/2024 12:51 PM
--- NOTE | 2024-07-10 13:10 | P.GSCN ---
History of Present Illness Consult date: 07/10/24 History of present illness: CHIEF COMPLAINT: Abdominal pain and chest pain HISTORY OF PRESENT ILLNESS: This is a 68-year-old female who presented to the hospital with complaints of pain across the upper abdomen along the rib cage. She also reports coughing. Reports that symptoms feel similar to her prior pneumonia. Patient does report a productive cough. Patient started antibiotics for possible pneumonia. She is also been given Lasix for possible fluid overloa d. Followed by cardiology and pulmonary service. Surgical service has been consulted for abdominal pain. Patient also reporting issues with constipation. Her stools have been small and hard. She feels bloated. Prior surgical history does include appendectomy, lower anterior resection and incisional hernia repair. Patient with history of COPD and pulmonary fibrosis and is on O2 during the night. PAST MEDICAL HISTORY: Coronary Artery Disease (CAD), COPD, Deep Vein Thrombosis (DVT), Fibromyalgia, GERD/Reflux, Hyperlipidemia, Hypertension, Osteoarthritis (OA), Skin Disorder,DIVERTICULITIS, HX KIDNEY STONE- still has it but it's never moved , Pneumonia, ROSACEA, DVT RLE 2007,gerson cataracts, BILAT ILIAC ARTERIES BLOCKED PER PT, pulmonary fibrosis PAST SURGICAL HISTORY: Appendectomy, Bowel Resection, Heart Catheterization With Stent, Hernia Repair, Tubal Ligation, multiple back surgeries. MEDICATIONS: See below ALLERGIES: See below SOCIAL HISTORY: No illicit drug use. REVIEW OF SYSTEMS: CONSTITUTIONAL: Denies fever or chills. HEENT: Denies blurred vision, vision changes, or eye pain. Denies hemoptysis CARDIOVASCULAR: Denies chest pain or pressure. RESPIRATORY: No shortness of breath. GASTROINTESTINAL: See HPI for pertinent findings HEMATOLOGIC: Denies bleeding disorders. GENITOURINARY: Denies any blood in urine or increased urinary frequency. SKIN: Denies pruitis. Denies rash. PHYSICAL EXAM: VITAL SIGNS: Reviewed GENERAL: Well-developed in no acute distress. ABDOMEN: Soft. Diffuse tenderness. More tenderness with palpation across upper abdomen. Mildly distended. No rebound. No guarding. NEUROLOGIC: Alert and oriented. Cranial nerves II through XII grossly intact. LABORATORY DATA: WBC 8.9 Hgb 12.9 platelets 313 INR 0.9 Sodium 140 potassium 4.4 creatinine 1.32 Total bilirubin 0.4 AST 19 ALT 14 alk phos 133 Troponin negative x 3 IMAGING: Chest x-ray reports mild cardiomegaly and interstitial densities which are increasing correlate for CHF. Patchy medial bibasilar opacities slightly increased. ASSESSMENT: 1. Abdominal pain. Upper abdominal pain may be due to patient's cough and lower abdominal pain likely related to constipation. Abdominal x-ray reporting moderate stool in the right side of the colon. No free air or bowel obst ruction. PLAN: -Lactulose BID added for constipation -Continue heart healthy diet -Continue supportive care Physician Tractor Mechanic Apprentice note has been reviewed by physician. Signing provider agrees with the documented findings, assessment, and plan of care. Past Medical History Past Medical History: Coronary Artery Disease (CAD), COPD, Deep Vein Thrombosis (DVT), Fibromyalgia, GERD/Reflux, Hyperlipidemia, Hypertension, Osteoarthritis (OA), Skin Disorder Additional Past Medical History / Comment(s): DIVERTICULITIS, HX KIDNEY STONE- still has it but it's never moved , Pneumonia, ROSACEA, DVT RLE 2007,gerson cataracts, BILAT ILIAC ARTERIES BLOCKED PER PT, pulmonary fibrosis History of Any Multi-Drug Resistant Organisms: None Reported Past Surgical History: Appendectomy, Bowel Resection, Heart Catheterization With Stent, Hernia Repair, Tubal Ligation Additional Past Surgical History / Comment(s): COLONOSCOPY, PARTIAL LT LOBECTOMY-(pt stated they thought i might of had tb but it was just scar tissue), D & C, 07-17-14 BOWEL RESECTION, [place] [facility] [place] 12-18[place]17 lap robotic assisted repair of inc hernia Past Anesthesia/Blood Transfusion Reactions: No Reported Reaction Date of Last Stent Placement:: [place] [facility] [place] Psychological History: Anxiety, Panic Disorder Smoking Status: Former smoker Past Alcohol Use History: None Reported Past Drug Use History: None Reported - Past Family History Mother Family Medical History: Congestive Heart Failure (CHF) Father Family Medical History: Cancer Additional Family Medical History / Comment(s): TYPE OF CANCER NOT KNOWN Medications and Allergies Home Medications Medication Instructions Recorded Confirmed Type clonazePAM [Clonazepam] 1 mg PO BID 02/20/14 07/10/24 History Aspirin EC [Ecotrin Low Dose] 81 mg PO HS 01/27/20 07/10/24 History Sertraline [Zoloft] 50 mg PO DAILY 06/28/22 07/10/24 History Pantoprazole [Protonix] 40 mg PO AC-BID 90 Days #180 tab 10/05/22 07/10/24 Rx hydrALAZINE HCL [Apresoline] 100 mg PO HS 10/18/22 07/10/24 History Ipratropium-Albuterol Nebulize 3 ml INHALATION RT-BID 05/03/23 07/10/24 History [Duoneb 0.5 mg-3 mg/3 ml Soln] Potassium Chloride ER [K-Dur 20] 20 meq PO HS 05/03/23 07/10/24 History atenoloL [Tenormin] 50 mg PO HS 05/03/23 07/10/24 History Nitroglycerin Sl Tabs [Nitrostat] 0.4 mg SL Q5M PRN 06/09/23 07/10/24 History Atorvastatin [Lipitor] 80 mg PO HS 05/10/24 07/10/24 History Immune Triple Support 1 tab PO HS 05/10/24 07/10/24 History Linaclotide [Linzess] 290 mcg PO HS PRN 05/10/24 07/10/24 History Magnesium Oxide [Mag-Ox] 400 mg PO HS 05/10/24 07/10/24 History amLODIPine [Norvasc] 10 mg PO HS 05/10/24 07/10/24 History methocarbamoL [Robaxin-750] 750 mg PO BID PRN 05/10/24 07/10/24 History Budesonide-Formot 160-4.5 Mcg 2 puff INHALATION RT-BID each 05/17/24 07/10/24 Rx [Symbicort 160-4.5 Mcg Inhaler] Furosemide [Lasix] 20 mg PO DAILY 90 Days #90 tab 05/17/24 07/10/24 Rx HYDROcodone/APAP 7.5-325MG [[place] 1 tab PO TID PRN 07/10/24 07/10/24 History 7.5-325] Allergies Allergy/AdvReac Type Severity Reaction Status Date / Time hydrocodone bitartrate AdvReac Nausea & Verified 07/10/24 07:55 [From Vicodin] Vomiting - DENIES Reaction propoxyphene napsylate AdvReac Nausea & Verified 07/10/24 07:55 [From Darvocet-N 100] Vomiting - DENIES Reaction Surgical - Exam Vital Signs Temp Pulse Resp BP Pulse Ox 97.6 F 64 18 189/93 96 07/09/24 20:27 07/09/24 20:27 07/09/24 20:27 07/09/24 20:27 07/09/24 20:27 Results - Labs 07/09/24 21:05 07/09/24 21:05 Abnormal Lab Results - Last 24 Hours (Table) 07/09/24 Range/Units 21:05 BUN 25 H (7-17) mg/dL Creatinine 1.32 H (0.52-1.04) mg/dL Glucose 109 H (74-99) mg/dL Alkaline Phosphatase 133 H (38-126) U/L Diabetes panel 07/09/24 Range/Units 21:05 Sodium 140 (137-145) mmol/L Potassium 4.4 (3.5-5.1) mmol/L Chloride 105 (98-107) mmol/L Carbon Dioxide 27 (22-30) mmol/L BUN 25 H (7-17) mg/dL Creatinine 1.32 H (0.52-1.04) mg/dL Glucose 109 H (74-99) mg/dL Calcium 9.2 (8.4-10.2) mg/dL AST 19 (14-36) U/L ALT 14 (4-34) U/L Alkaline Phosphatase 133 H (38-126) U/L Total Protein 7.2 (6.3-8.2) g/dL Albumin 4.1 (3.5-5.0) g/dL Calcium panel 07/09/24 Range/Units 21:05 Calcium 9.2 (8.4-10.2) mg/dL Albumin 4.1 (3.5-5.0) g/dL Pituitary panel 07/09/24 Range/Units 21:05 Sodium 140 (137-145) mmol/L Potassium 4.4 (3.5-5.1) mmol/L Chloride 105 (98-107) mmol/L Carbon Dioxide 27 (22-30) mmol/L BUN 25 H (7-17) mg/dL Creatinine 1.32 H (0.52-1.04) mg/dL Glucose 109 H (74-99) mg/dL Calcium 9.2 (8.4-10.2) mg/dL Adrenal panel 07/09/24 Range/Units 21:05 Sodium 140 (137-145) mmol/L Potassium 4.4 (3.5-5.1) mmol/L Chloride 105 (98-107) mmol/L Carbon Dioxide 27 (22-30) mmol/L BUN 25 H (7-17) mg/dL Creatinine 1.32 H (0.52-1.04) mg/dL Glucose 109 H (74-99) mg/dL Calcium 9.2 (8.4-10.2) mg/dL Total Bilirubin 0.4 (0.2-1.3) mg/dL AST 19 (14-36) U/L ALT 14 (4-34) U/L Alkaline Phosphatase 133 H (38-126) U/L Total Protein 7.2 (6.3-8.2) g/dL Albumin 4.1 (3.5-5.0) g/dL
[2024-07-10] MEDS ORDERED: PATIENT'S OWN (Linaclotide [Linzess] 290 MCG Capsule) PO PRN (13:25)
[2024-07-10] MEDS: LACTULOSE 20 GM/30 ML CUP PO SCH (15:17)
[2024-07-10] MEDS: ALBUTEROL NEBULIZED 2.5 MG/3 ML INHALATION PRN (16:36)
[2024-07-10] MEDS: HYDROcodone/APAP 7.5-325MG 1 EACH TAB PO PRN (17:25)
[2024-07-10] MEDS: PANTOPRAZOLE 40 MG TABLET PO SCH (18:11)
[2024-07-10] MEDS: hydrALAZINE HCL 20 MG/ML 1 ML VIAL IVP PRN (18:12)
[2024-07-10] MEDS: ATORVASTATIN 80 MG TAB PO SCH (20:18)
[2024-07-10] MEDS: atenoloL 50 MG TAB PO SCH (20:18)
[2024-07-10] MEDS: MAGNESIUM OXIDE 400 MG TAB PO SCH (20:18)
[2024-07-10] MEDS: ASPIRIN 81 MG PO SCH (20:19)
[2024-07-10] MEDS: POTASSIUM CHLORIDE ER 20 MEQ TAB.ER PO SCH (20:19)
[2024-07-10] MEDS: IPRATROPIUM-ALBUTEROL 3 ML NEB INHALATION SCH (20:21)
[2024-07-10] MEDS: AZITHROMYCIN 500 MG in SODIUM CHLORIDE 0.9% 250 ML IVPB SCH (22:00)
[2024-07-10] MEDS ORDERED: NITROGLYCERIN OINT 1 INCH/GM PACKET TOPICAL SCH (22:00)
--- NOTE | 2024-07-10 22:00 | P.CNPUL ---
History of Present Illness Consult date: 07/10/24 Requesting physician: Td Lezama Reason for consult: COPD Chief complaint: Epigastric pain History of present illness: Patient is a 68-year-old female with past medical history significant for COPD, previous left-lung lobectomy, CAD with previous PCI/stenting, hypertension, hyperlipidemia, DVT, GERD, fibromyalgia, osteoporosis, compression fracture, with recent T6 kyphoplasty. Her primary care provider is Dr. Gregorio Garber. She does follow in the pulmonary office with Dr. Best for management of her COPD. She has an FEV1 70% of predicted. She does use supplemental oxygen at home at night 3 L/min. She uses a Symbicort inhaler and as needed albuterol inhaler. Patient presented the ED late last night with a chief complaint of epigastric pain. Pain is described as severe and constant, rated 10/10, radiating "under my ribs on both sides". This has reportedly been ongoing since her recent ER visit on June 17. She is also reporting some abdominal fullness and tautness. She has been more short of breath over the same timeframe. Reports a nonproductive cough, chest congestion, wheezing. Denies any fevers, chills, sputum production, hemoptysis. Denies any sick contacts. Denies radiating chest pain, heart palpitations, orthopnea, syncopal events. Denies lower extremity swelling. States she does take Lasix on an outpatient basis. Denies missing any doses. Workup in the ED included a chest x-ray demonstrating cardiomegaly with pulmonary vascular congestion and likely left basilar atelectasis. CBC is unremarkable for leukocytosis. CMP: Sodium 140, potassium 4.4, chloride 105, serum bicarb 27, BUN 25, creatinine 1.32, glucose 109. Troponins less than 0.012 x 2. NT proBNP 1460. Most recent available echocardiogram from May 2024, with normal LV function and mild to moderate mitral regurgitation. Negative for influenza, RSV, COVID. Patient is currently being evaluated in the ED, room 19. She is on 2 L/min nasal cannula, SpO2 is reading 97%. She is in no respiratory distress. Nontachypneic and without accessory muscle use. Nontoxic appearance. Current most recent vitals: Temperature 97.6 F, heart rate 67 bpm, blood pressure 143/74 mmHg, SpO2 97% on 2 L/min nasal cannula. Review of Systems Constitutional: Reports chronic pain, Reports fatigue, Reports weight gain, Den ies chills, Denies fever, Denies night sweats, Denies poor appetite, Denies weight loss Ears, nose, mouth and throat: Denies headache, Denies nasal congestion, Denies nasal discharge, Denies post-nasal drip, Denies sinus pain, Denies sinus pressure, Denies sore throat Cardiovascular: Reports dyspnea on exertion, Reports lightheadedness, Denies chest pain, Denies leg edema, Denies orthopnea, Denies palpitations, Denies paroxysmal nocturnal dyspnea, Denies syncope Respiratory: Reports congestion, Reports cough, Reports home oxygen, Reports pain on inspiration, Reports wheezing, Denies cough with sputum, Denies excessive sputum Gastrointestinal: Reports abdominal pain, Reports heartburn, Denies change in bowel habits, Denies diarrhea, Denies hematemesis, Denies hematochezia, Denies loss of appetite, Denies melena, Denies nausea, Denies vomiting Genitourinary: Denies dysuria Musculoskeletal: Denies limitation of motion Integumentary: Denies rash Neurological: Denies seizures, Denies syncope Psychiatric: Reports anxiety, Reports depression Past Medical History Past Medical History: Coronary Artery Disease (CAD), COPD, Deep Vein Thrombosis (DVT), Fibromyalgia, GERD/Reflux, Hyperlipidemia, Hypertension, Osteoarthritis (OA), Skin Disorder Additional Past Medical History / Comment(s): DIVERTICULITIS, HX KIDNEY STONE- still has it but it's never moved , Pneumonia, ROSACEA, DVT RLE 2007,gerson catarac ts, BILAT ILIAC ARTERIES BLOCKED PER PT, pulmonary fibrosis History of Any Multi-Drug Resistant Organisms: None Reported Past Surgical History: Appendectomy, Bowel Resection, Heart Catheterization With Stent, Hernia Repair, Tubal Ligation Additional Past Surgical History / Comment(s): COLONOSCOPY, PARTIAL LT LOBECTOMY-(pt stated they thought i might of had tb but it was just scar tissue), D & C, 07-17-14 BOWEL RESECTION, HEART C[place] 2 [place] [facility] [place] , 12-18-17 lap robotic assisted repair of inc hernia Past Anesthesia/Blood Transfusion Reactions: No Reported Reaction Date of Last Stent Placement:: 11-15-15 [place] [facility] [place] Past Psychological History: Anxiety, Panic Disorder Smoking Status: Former smoker Past Alcohol Use History: None Reported Past Drug Use History: None Reported - Past Family History Mother Family Medical History: Congestive Heart Failure (CHF) Father Family Medical History: Cancer Additional Family Medical History / Comment(s): TYPE OF CANCER NOT KNOWN Medications and Allergies Home Medications Medication Instructions Recorded Confirmed Type clonazePAM [Clonazepam] 1 mg PO BID 02/20/14 05/10/24 History Aspirin EC [Ecotrin Low Dose] 81 mg PO HS 01/27/20 05/10/24 History Sertraline [Zoloft] 50 mg PO DAILY 06/28/22 05/10/24 History Pantoprazole [Protonix] 40 mg PO AC-BID 90 Days #180 tab 10/05/22 05/10/24 Rx hydrALAZINE HCL [Apresoline] 100 mg PO HS 10/18/22 05/10/24 History Budesonide/Glycopyr/Formoterol 2 puff INHALATION RT-BID 05/03/23 05/10/24 History [Breztri Aerosphere Inhaler] Ipratropium-Albuterol Nebulize 3 ml INHALATION RT-BID 05/03/23 05/10/24 History [Duoneb 0.5 mg-3 mg/3 ml Soln] Potassium Chloride ER [K-Dur 20] 20 meq PO HS 05/03/23 05/10/24 History atenoloL [Tenormin] 50 mg PO HS 05/03/23 05/10/24 History Nitroglycerin Sl Tabs [Nitrostat] 0.4 mg SL Q5M PRN 06/09/23 05/10/24 History Atorvastatin [Lipitor] 80 mg PO HS 05/10/24 05/10/24 History HYDROcodone/APAP 5-325MG [[place] 1 tab PO Q6HR PRN 05/10/24 05/10/24 History 5-325] Immune Triple Support 1 tab PO HS 05/10/24 05/10/24 History Linaclotide [Linzess] 290 mcg PO HS PRN 05/10/24 05/10/24 History Magnesium Oxide [Mag-Ox] 400 mg PO HS 05/10/24 05/10/24 History amLODIPine [Norvasc] 10 mg PO HS 05/10/24 05/10/24 History methocarbamoL [Robaxin-750] 750 mg PO BID PRN 05/10/24 05/10/24 History traMADol HCl [Ultram] 50 mg PO BID PRN 05/10/24 05/10/24 History HYDROcodone/APAP 5-325MG [[place] 1 tab PO Q6HR PRN 7 Days #28 tab 05/14/24 Rx 5-325] Benzocaine/Menthol Lozeng [Cepacol 1 each MUCOUS MEM Q4HR PRN lozenge 05/17/24 Rx lozenge] Budesonide-Formot 160-4.5 Mcg 2 puff INHALATION RT-BID each 05/17/24 Rx [Symbicort 160-4.5 Mcg Inhaler] Dapagliflozin Propanediol [Farxiga] 5 mg PO DAILY 90 Days #90 tab 05/17/24 Rx Furosemide [Lasix] 20 mg PO DAILY 90 Days #90 tab 05/17/24 Rx Lactulose [Cephulac] 20 gm PO TID PRN 30 Days #90 ml 05/17/24 Rx cefuroxime axetiL [Ceftin] 500 mg PO BID #10 tab 05/17/24 Rx HYDROcodone/APAP 10-325MG [[place] 1 tab PO Q6HR PRN 3 Days #12 tab 06/17/24 Rx 10-325] Allergies Allergy/AdvReac Type Severity Reaction Status Date / Time hydrocodone bitartrate AdvReac Nausea & Verified 07/09/24 20:30 [From Vicodin] Vomiting propoxyphene napsylate AdvReac Nausea & Verified 07/09/24 20:30 [From Darvocet-N 100] Vomiting Physical Exam Vitals: Vital Signs Temp Pulse Resp BP Pulse Ox 07/10/24 02:00 67 18 143/74 97 07/10/24 01:11 80 14 147/70 97 07/10/24 00:33 80 15 152/61 98 07/09/24 23:26 64 07/09/24 23:01 59 L 07/09/24 22:07 18 95 07/09/24 21:40 57 L 20 166/86 94 L 07/09/24 20:27 97.6 F 64 18 189/93 96 Intake and Output 07/09/24 07/09/24 07/10/24 14:59 22:59 06:59 Other: Weight 71.668 kg GENERAL EXAM: Alert, 68-year-old obese female, comfortable in no apparent distress. HEAD: Normocephalic and atraumatic EYES: Normal reaction of pupils, equal size. NOSE: Clear with pink turbinates. THROAT: No erythema or exudates. NECK: No masses, no JVD. CHEST: No chest wall deformity. LUNGS: Equal air entry with minimal bibasilar inspiratory crackles. No wheeze, rhonchi or dullness. On 2 L/min nasal cannula. No conversational dyspnea or accessory muscle use.. CVS: S1 and S2 normal with no audible murmur, regular rhythm. No extra heart sounds ABDOMEN: Obese abdomen, mildly distended, no guarding or rigidity, active bowel sounds, no hepatosplenomegaly, no guarding or rigidity. SPINE: No scoliosis or deformity SKIN: No rashes CENTRAL NERVOUS SYSTEM: No focal deficits, tone is normal in all 4 extremities. EXTREMITIES: There is no peripheral edema, clubbing, or cyanosis. Peripheral pulses are intact. Results - Laboratory Findings CBC and BMP: 07/09/24 21:05 07/09/24 21:05 PT/INR, D-dimer PT 10.4 sec (10.0-12.5) 07/09/24 21:05 INR 0.9 (<1.2) 07/09/24 21:05 Abnormal lab findings: Abnormal Labs 07/09/24 21:05 BUN 25 H Creatinine 1.32 H Glucose 109 H Alkaline Phosphatase 133 H - Diagnostic Findings Chest x-ray: image reviewed Assessment and Plan Assessment: Acute on chronic hypoxemic respiratory failure, possibly secondary to a combination of diastolic congestive heart failure exacerbation and COPD exacerbation. Chest x-ray showing cardiomegaly with pulmonary vascular congestion and likely left basilar atelectasis. No obvious acute infectious infiltrates or pneumonia. NT proBNP elevated at 1460. Atypical chest pain Moderate COPD, with FEV1 70% of predicted Chronic oxygen dependence uses 2 to 3 L at bedtime while at home History of thoracic level compression fracture with recent T6 kyphoplasty, patie nt still reporting thoracic level back pain, her plan is to follow-up with a pain specialist outpatient Coronary artery disease, status post cardiac catheterization and coronary stenting Hypertension History of hyperlipidemia History of right lower extremity DVT Peripheral vascular disease History of GERD Fibromyalgia Chronic kidney disease, stage 3 Chronic anxiety/panic disorder History of lobectomy/wedge resection for a chronic infection which turned out to be scarring. Previous history of bowel resection and laparoscopic repair of incarcerated hernia Obesity Plan: Patient's medications, labs, chest x-ray reviewed Continue supplemental oxygen, currently on 2 L/min nasal cannula, which she wears at home No obvious acute focal infiltrates suggestive of pneumonia. Negative for influenza, RSV, COVID On my evaluation, COPD appears fairly stable, continue combination of bronc hodilators, Symbicort inhaler, and IV Solu-Medrol Agree with continuing Lasix 40 mg twice daily Recent echocardiogram reviewed; Cardiac troponins negative so far; EKG is sinus mechanism, without acute ST or T wave abnormalities. GI prophylaxis: Protonix DVT prophylaxis: Heparin subcu We will continue to follow I have personally seen and examined the patient, performed the documentation and the assessment and plan as written. Number of minutes spent on the visit:20 Time with Patient: Greater than 30
[2024-07-10] MEDS: amLODIPine 10 MG TAB PO SCH (22:42)
[2024-07-10] MEDS: hydrALAZINE HCL 50 MG TAB PO SCH (23:00)
[2024-07-10] MEDS: methocarbamoL 750 MG TAB PO PRN (23:01)
--- NOTE | 2024-07-11 00:35 | HP ---
HISTORY AND PHYSICAL HISTORY OF PRESENT ILLNESS: A 68-year-old with history of COPD, previous left lung lobectomy, coronary artery disease with prior PCI, hypertension, dyslipidemia, DVT, GERD, fibromyalgia, osteoporosis, compression fracture, recent T6 kyphoplasty. She has FEV1 of 70%. She has supplemental blocks at home. She has had multiple thoracic compression fractures. She has a pain on her both ribs, worsening shortness of breath, cough, congestion, wheezing. Labs are reviewed. Serum bicarb 27, BUN 25, creatinine 1.32, glucose 109. Troponins less than 0.012. Echo was reviewed, which shows negative influenza RSV and COVID, seen in the room 19 in the ER. Temperature 97.6, heart rate 60s, blood pressure 140s/70s, O2 of 97% on 2 L. Past medical history is otherwise negative except for severe anxiety, depression, chronic pain, and shortness of breath. PAST MEDICAL HISTORY: Coronary artery disease, DVT, fibromyalgia, GERD, hypertension, osteoarthritis, skin disorder, pneumonia, rosacea, bilateral iliac arteries blocked, and pulmonary fibrosis. PAST SURGICAL HISTORY: Appendectomy, bowel resection, hernia repair, tubal ligation, heart catheterization for 2 stents, D and C, and bowel resection. MEDICATIONS: Reviewed. Please see extended list. ALLERGIES: See the extended list. PHYSICAL EXAMINATION: VITAL SIGNS: As mentioned above. Blood pressure is up to 170s/70s. BUN is 25, creatinine 1.32. White count 8.9, hemoglobin is 12.9. LUNGS: Decreased breath sounds x4. CARDIOVASCULAR: S1 and S2. PSYCH: Poor mood and affect. NEUROLOGIC: Alert and oriented x3. HEENT: Pupils are equal, round, and reactive. GI: Soft, nontender. ASSESSMENT: Acute on chronic hypoxemic respiratory failure, acute on chronic diastolic CHF, COPD exacerbation, bilateral atelectasis, atypical chest pain, COPD exacerbation, oxygen dependence, thoracic compression fractures, coronary artery disease, hypertension, dyslipidemia, history of DVT, PE, peripheral artery disease. She is negative for influenza, RSV and COVID. She is on Lasix. Cardiac troponins are negative. Possibly go home with her family, but it is cleared her for discharge in the next 24 to 48 hours. Please see further orders. MMODL / IJN: [id number] /
[2024-07-11] MEDS ORDERED: PANTOPRAZOLE 40 MG TABLET PO SCH (07:30)
[2024-07-11] MEDS: FUROSEMIDE 20 MG TAB PO SCH (08:46)
[2024-07-11] MEDS: SERTRALINE 50 MG TAB PO SCH (08:46)
[2024-07-11 09:00] LABS: BUN/Creat Ratio 18.94 Ratio (12.00-20.00); Blood Urea Nitrogen 30.3 mg/dL (9.0-27.0); Calcium 8.5 mg/dL (8.7-10.3); Carbon Dioxide 20.8 mmol/L (21.6-31.8); Chloride 110 mmol/L (96-109); Glucose 162 mg/dL (70-110); Potassium 4.3 mmol/L (3.5-5.5); Sodium 142 mmol/L (135-145)
[2024-07-11 09:01] LABS: HCT 34.3 % (37.2-46.3); HGB 10.9 g/dL (12.0-15.0); MCH 29.8 pg (27.0-32.0); MCHC 31.8 g/dL (32.0-37.0); MCV 93.7 FL (80.0-97.0); Mean Platelet Volume 10.2 FL (9.5-12.2); NRBC Per 100 WBC 0 X 10*3/uL (0.00-0.01); Platelet Count 264 X 10*3/uL (140-440); RBC 3.66 X 10*6/uL (4.10-5.20); RDW 13.5 % (11.5-14.5); WBC 9.81 X 10*3/uL (4.50-10.00)
--- NOTE | 2024-07-11 10:52 | CT ---
EXAMINATION TYPE: CT thoracic spine wo con DATE OF EXAM: 07/11/2024 7:23 AM COMPARISON: 01/22/2013 CLINICAL INDICATION: Female, 68 years old with history of compression fracture, compression fractures TECHNIQUE: Contrast used: mL of , (none if empty) Oral contrast used: (none if empty) Images were obtained in axial plane 3 mm sections. Reconstructed images in the coronal and sagittal p lanes obtained. FINDINGS: Vertebroplasty is present at T6. Compression deformity is noted at T7-1 mild degree T5. Acute fractures are not identified. No spinal canal stenosis is evident. No posterior wall displaceme nt identified. There is loss of vertebral body height superior endplate T4, T5 diffusely through T6 a nd T7 levels. Remaining vertebral body heights are preserved. Disc heights appear preserved. IMPRESSION: 1. VERTEBRAL PLASTY CHANGES T6. 2. COMPRESSION DEFORMITIES SUPERIOR ENDPLATES OF T4 AND T5 AND DIFFUSELY THROUGH THE T7 LEVEL [facility], , 07/11/2024 10:50 AM
--- NOTE | 2024-07-11 12:34 | P.PN ---
Subjective Progress Note Date: 07/11/24 SURGICAL PROGRESS NOTE CHIEF COMPLAINT: Abdominal pain and chest pain HISTORY OF PRESENT ILLNESS: Patient continues to complain of a cough. She reports her abdominal pain is less today. She was able to eat. Denies any nausea or vomiting. She has had bowel movement. The stool is hard. Abdominal x-ray had reported moderate stool on the right side of the colon. No free air or bowel obstruction. Patient started on lactulose yesterday. WBC 9.81 Dr. Atkins is covering for Dr. Villarreal PHYSICAL EXAM: VITAL SIGNS: Reviewed. GENERAL: Well-developed in no acute distress. HEENT: No sclera icterus. Extraocular movements grossly intact. Moist buccal mucosa. Head is atraumatic, normocephalic. ABDOMEN: Soft. Nondistended. Nontender. NEUROLOGIC: Alert and oriented. Cranial nerves II through XII grossly intact. ASSESSMENT: 1. Constipation likely contributing to patient's abdominal pain. Upper abdominal pain likely due to patient's cough. PLAN: -Continue lactulose twice daily -Encourage patient to ambulate Physician Toys And Games Hand Finisher note has been reviewed by physician. Signing provider agrees with the documented findings, assessment, and plan of care. Objective - Vital Signs Vital signs: Vital Signs Temp 98.1 F 07/11/24 07:00 Pulse 74 07/11/24 07:00 Resp 17 07/11/24 07:00 BP 135/65 07/11/24 07:00 Pulse Ox 94 L 07/11/24 09:09 FiO2 Intake & Output 07/10/24 07/11/24 07/11/24 18:59 06:59 18:59 Intake Total 118 Balance 118 Weight 71.668 kg Intake: Oral 118 Other: # Voids 2 - Labs CBC & Chem 7: 07/11/24 04:33 07/11/24 04:33 Labs: Abnormal Lab Results - Last 24 Hours (Table) 07/11/24 07/11/24 07/11/24 Range/Units 00:19 04:33 04:33 RBC 3.66 L (4.10-5.20) X 10*6/uL Hgb 10.9 L (12.0-15.0) g/dL Hct 34.3 L (37.2-46.3) % MCHC 31.8 L (32.0-37.0) g/dL D-Dimer 2.96 H (<0.60) mg/L FEU Chloride 110 H (96-109) mmol/L Carbon Dioxide 20.8 L (21.6-31.8) mmol/L BUN 30.3 H (9.0-27.0) mg/dL Creatinine 1.6 H (0.6-1.5) mg/dL Est GFR (CKD-EPI) 35 L (>=60) Glucose 162 H (70-110) mg/dL Calcium 8.5 L (8.7-10.3) mg/dL
[2024-07-11 12:56] VITALS: BMI 31.8
--- NOTE | 2024-07-11 13:46 | P.PN ---
Subjective HISTORY OF PRESENT ILLNESS: This is a 68-year-old female with a past medical history significant for hypertension, hyperlipidemia, peripheral arterial disease, coronary artery disease, and chronic pain. Patient follows in the office with Dr. Kim. We have been asked to see the patient in consultation for CHF. Patient examined at the bedside in the emergency room. Patient is tearful and crying upon entering her room this morning. Patient states that she is wanting to be discharged home. However she states that she is having a lot of abdominal pain. She states that she came in with chest pain however upon further review it appears that the patient is having epigastric pain. She also reports having generalized abdominal pain. She states like she feels like her abdomen is distended. She currently denies having any chest pain or pressure. DIAGNOSTICS: - EKG reveals sinus mechanism with nonspecific ST-T wave changes. - Chest xray patchy bilateral interstitial opacities and left lung base atelectasis. - Laboratory data: WBC 8.9. Hemoglobin 12.9. Platelet count 313. Sodium 140. Potassium 4.4. BUN 25. Creatinine 1.32. Magnesium 1.8. Troponin negative x 3. proBNP 1460. - Current home cardiac medications include aspirin 81 mg daily, atorvastatin 80 mg at night, Lasix 20 mg daily, amlodipine 10 mg daily, atenolol 50 mg at night, hydralazine 100 mg at night. - Most recent echocardiogram obtained in May 2024 revealed ejection fraction 50 to 55%, mild to moderate MR trace to mild aortic regurgitation, mild TR - Patient underwent Lexiscan stress test in January 2020 which was negative for ischemia 07/11/2024 Patient examined this morning at the bedside. Patient continues to report abdominal pain at the time of examination. She also continues to have some pain underneath her left breast. She has been seen by general surgery for her abdominal pain and started on lactulose for constipation. Per nursing, patient has been having bowel movements. Vital signs are stable. PHYSICAL EXAM: VITAL SIGNS: Reviewed. GENERAL: Well-developed in no acute distress. HEENT: Head is normocephalic. Pupils are equal, round. Sclerae anicteric. Mucous membranes of the mouth are moist. Neck supple. No JVD or thyromegaly LUNGS: Respirations even and unlabored. Lungs essentially clear to auscultation bilaterally. HEART: Regular rate and rhythm. S1 and S2 heard. ABDOMEN: Soft. Nondistended. Nontender. EXTREMITIES: Normal range of motion. No clubbing or cyanosis. Peripheral pulses intact. No lower extremity edema NEUROLOGIC: Awake and alert. Oriented x 3. ASSESSMENT: Chest pain, atypical, troponin negative x 3 Possible pneumonia per chest x-ray Abdominal pain, etiology unclear Chronic heart failure with preserved EF, currently euvolemic Hypertension Hyperlipidemia Coronary artery disease Peripheral arterial disease Chronic pain Obesity: BMI 31.9 PLAN: An acute coronary event has been ruled out No need to obtain echocardiogram as this was performed in May 2024 Continue current cardiac medications No further inpatient recommendations from a cardiac standpoint We will sign off. Please reconsult if needed. Nurse practitioner note has been reviewed by physician. Signing provider agrees with the documented findings, assessment, and plan of care documented by SCIENTIFIC PHOTOGRAPHER as a scribe. Objective - Vital Signs Vital signs: Vital Signs Temp 98.1 F 07/11/24 07:00 Pulse 74 07/11/24 07:00 Resp 17 07/11/24 07:00 BP 135/65 07/11/24 07:00 Pulse Ox 94 L 07/11/24 09:09 FiO2 Intake & Output 07/10/24 07/11/24 07/11/24 18:59 06:59 18:59 Intake Total 118 Balance 118 Weight 71.668 kg 71.668 kg Intake: Oral 118 Other: # Voids 2 - Labs CBC & Chem 7: 07/11/24 04:33 07/11/24 04:33 Labs: Abnormal Lab Results - Last 24 Hours (Table) 07/11/24 07/11/24 07/11/24 Range/Units 00:19 04:33 04:33 RBC 3.66 L (4.10-5.20) X 10*6/uL Hgb 10.9 L (12.0-15.0) g/dL Hct 34.3 L (37.2-46.3) % MCHC 31.8 L (32.0-37.0) g/dL D-Dimer 2.96 H (<0.60) mg/L FEU Chloride 110 H (96-109) mmol/L Carbon Dioxide 20.8 L (21.6-31.8) mmol/L BUN 30.3 H (9.0-27.0) mg/dL Creatinine 1.6 H (0.6-1.5) mg/dL Est GFR (CKD-EPI) 35 L (>=60) Glucose 162 H (70-110) mg/dL Calcium 8.5 L (8.7-10.3) mg/dL Microbiology - Last 24 Hours (Table) 07/09/24 22:10 Blood Culture - Preliminary Blood
[2024-07-11] MEDS: DOXYCYCLINE 100 MG CAP PO SCH (23:23)
[2024-07-11] MEDS: BENZONATATE 100 MG CAP PO SCH (23:23)
--- NOTE | 2024-07-12 00:17 | PN ---
PROGRESS NOTE SUBJECTIVE: Started on doxycycline for bronchitis. She does complain of a cough, going to start Tessalon Perles also. Constipation took away her abdominal pain when she had a bowel movement. She is still worried about her abdomen. I told her the CAT scans are normal. She can do an outpatient colonoscopy. She is worried about her cough. I started her on the Tessalon Perles and doxycycline. Possibly go home tomorrow. She has thoracic compression fractures above and below where she had vertebroplasty. She is on Fosamax to prevent further ones as could be the source of her pain from her back. Due to elevated D-dimer, CT of the chest has been ordered to rule out PE. OBJECTIVE: CARDIOVASCULAR: S1, S2. LUNGS: Wheezes x4. VITAL SIGNS: Blood pressure 150s to 170s over 60s to 70s, temp 97.7, pulse 60s to 70s, respiratory rate 17 to 20, 98% on 2 L. ASSESSMENT: She has chronic obstructive pulmonary disease, end-stage vertebral fracture. She has constipation, abdominal pain. Surgery has seen her. Lactose has helped her with bowel movements. CTA of the chest due to elevated D-dimer. If that comes out clear, Tessalon Perles and doxycycline hopefully. Prognosis guarded. MMODL / IJN: [id number] /
--- NOTE | 2024-07-12 08:32 | US ---
EXAMINATION TYPE: US abdomen complete DATE OF EXAM: 07/12/2024 COMPARISON: CT: 10/23/22 CLINICAL INDICATION: Female, 68 years old with history of Diffuse abdominal pain; abdomen/chest pain x weeks TECHNIQUE: Grayscale and color Doppler imaging of the abdomen was performed. FINDINGS: EXAM MEASUREMENTS: Liver Length: 13.4 cm Gallbladder Wall: 0.21 cm CBD: 0.39 cm, color Doppler imaging was utilized to isolate the common bile duct for measurement. Spleen: 10.7 cm Right Kidney: 6.9 x 3.5 x 3.0 cm Left Kidney: 10.8 x 5.3 x 5.0 cm PROFESSOR OF VISUAL [employer]S NOTES: Pancreas: parts seen appear wnl Liver: wnl Gallbladder: wnl Evidence for sonographic Khan's sign: No CBD: wnl Spleen: wnl Right Kidney: appears atrophic, possible hydro seen, difficult to visualize due to bowel gas and bod y habitus Left Kidney: wnl Upper IVC: wnl Abd Aorta: wnl The liver is homogenous. The intrahepatic portion of the IVC and visualized abdominal aorta are with in normal limits. There is no evidence of shadowing mobile cholelithiasis. Common bile duct is unre markable. The visualized portions of the pancreas are homogenous. The spleen is unremarkable. Asymm etric diminished size and cortical thinning right kidney redemonstrated. No hydronephrosis is felt Pr esent bilaterally. IMPRESSION: Suboptimal study but no suspicious new or acute findings identified. [facility], , 07/12/2024 8:30 AM
[2024-07-12 09:55] LABS: Basophils # (A) 0.06 X 10*3/uL (0.00-0.10); Basophils % (A) 0.6 %; Eosinophils # (A) 0.13 X 10*3/uL (0.04-0.35); Eosinophils % (A) 1.4 %; HCT 33.6 % (37.2-46.3); HGB 10.8 g/dL (12.0-15.0); Lymphocytes # (A) 1.29 X 10*3/uL (0.90-5.00); Lymphocytes % (A) 13.6 %; MCH 29.8 pg (27.0-32.0); MCHC 32.1 g/dL (32.0-37.0); MCV 92.8 FL (80.0-97.0); Mean Platelet Volume 10.2 FL (9.5-12.2); Monocytes # (A) 0.75 X 10*3/uL (0.20-1.00); Monocytes % (A) 7.9 %; NRBC Per 100 WBC 0 X 10*3/uL (0.00-0.01); Neutrophils # (A) 7.14 X 10*3/uL (1.80-7.70); Neutrophils % (A) 74.9 %; Platelet Count 260 X 10*3/uL (140-440); RBC 3.62 X 10*6/uL (4.10-5.20); WBC 9.52 X 10*3/uL (4.50-10.00)
[2024-07-12 10:35] LABS: BUN/Creat Ratio 23.07 Ratio (12.00-20.00); Blood Urea Nitrogen 32.3 mg/dL (9.0-27.0); Glucose 108 mg/dL (70-110)
[2024-07-12 10:36] LABS: ALT 12 U/L (8-44); AST 17 U/L (13-35); Albumin 3.6 g/dL (3.8-4.9); Alkaline Phosphatase 106 U/L (41-126); Calcium 8.6 mg/dL (8.7-10.3); Carbon Dioxide 22.1 mmol/L (21.6-31.8); Chloride 110 mmol/L (96-109); Globulin 2.4 g/dL (1.6-3.3); Potassium 4.3 mmol/L (3.5-5.5); Sodium 142 mmol/L (135-145); Total Bilirubin <0.2 mg/dL (0.3-1.2)
--- NOTE | 2024-07-12 11:26 | PN ---
PROGRESS NOTE A 68-year-old white female, who had an abdominal ultrasound, showed liver is homogeneous. No evidence of cholecystitis. Common bile duct, unremarkable. Pancreas is normal . No signs for abdominal pain with ultrasound. Her most abdominal pain went away with a bowel movement. She has also had elevated D-dimer, for which a V/Q scan was ordered. She had a thoracic spine CT, which showed a thoracic compression fracture, contributing to her back pain with history of vertebroplasty. She is at 93 on room air, temperature 98, pulse 87 to 88, respiratory rate 18 to 20, blood pressure 137/71, bronchitis versus pneumonia, elevated D-dimer, unclear etiology we are waiting for a nuclear ventricular scan. Sodium 142, potassium 4.3, GFR is 35, so we cannot do a CTA of the chest. We did not order one. Prognosis is guarded. Started on oral doxycycline for infection. Blood cultures negative. Wait for Pulmonary and Surgery to decide what to do with her. MMODL / IJN: [id number] /
--- NOTE | 2024-07-12 12:29 | P.PN ---
Subjective Progress Note Date: 07/12/24 Patient is a 68-year-old female with past medical history significant for COPD, previous left-lung lobectomy, CAD with previous PCI/stenting, hypertension, hyperlipidemia, DVT, GERD, fibromyalgia, osteoporosis, compression fracture, with recent T6 kyphoplasty. Her primary care provider is Dr. Gregorio Garber. She does follow in the pulmonary office with Dr. Best for management of her COPD. She has an FEV1 70% of predicted. She does use supplemental oxygen at home at night 3 L/min. She uses a Symbicort inhaler and as needed albuterol inhaler. Patient presented the ED late last night with a chief complaint of epigastric pain. Pain is described as severe and constant, rated 10/10, radiating "under my ribs on both sides". This has reportedly been ongoing since her recent ER visit on June 17. She is also reporting some abdominal fullness and tautness. She has been more short of breath over the same timeframe. Reports a nonproductive cough, chest congestion, wheezing. Denies any fevers, chills, sputum production, hemoptysis. Denies any sick contacts. Denies radiating chest pain, heart palpitations, orthopnea, syncopal events. Denies lower extremity swelling. States she does take Lasix on an outpatient basis. Denies missing any doses. Workup in the ED included a chest x-ray demonstrating cardiomegaly with pulmonary vascular congestion and likely left basilar atelectasis. CBC is unremarkable for leukocytosis. CMP: Sodium 140, potassium 4.4, chloride 105, serum bicarb 27, BUN 25, creatinine 1.32, glucose 109. Troponins less than 0.012 x 2. NT proBNP 1460. Most recent available echocardiogram from May 2024, with normal LV function and mild to moderate mitral regurgitation. Negative for influenza, RSV, COVID. Patient is currently being evaluated in the ED, room 19. She is on 2 L/min nasal cannula, SpO2 is reading 97%. She is in no respiratory distress. Nontachypneic and without accessory muscle use. Nontoxic appearance. Current most recent vitals: Temperature 97.6 F, heart rate 67 bpm, blood pressure 143/74 mmHg, SpO2 97% on 2 L/min nasal cannula. The patient is seen today July 12, 2024 in follow-up on the regular medical floor. She is currently resting comfortably in bed. Awake and alert in no acute distress. Maintaining O2 saturations in the 90s on 2 L/min per nasal cannula. She has normal staying at 75 mL/h. She is still having some abdominal discomfort. Ultrasound of the abdomen was suboptimal but no suspicious new or acute findings identified. Calcitonin was negative at 0.09. Antibiotics were discontinued. She remains on Symbicort, DuoNeb inhalations. Heparin for DVT prophylaxis. Count 9.5. Hemoglobin 10.8. Platelets 260. Sodium 142. Potassium 4.3. Bicarb 22. BUN 32. Creatinine 1.4. Glucose 108. Objective - Vital Signs Vital signs: Vital Signs Temp 98.0 F 07/12/24 07:05 Pulse 88 07/12/24 08:35 Resp 16 07/12/24 07:05 BP 137/71 07/12/24 07:05 Pulse Ox 93 L 07/12/24 08:23 FiO2 Intake & Output 07/11/24 07/12/24 07/12/24 18:59 06:59 18:59 Intake Total 236 360 Balance 236 360 Weight 71.668 kg Intake: Oral 236 360 Other: # Voids 5 3 # Bowel Movements 1 - Exam GENERAL EXAM: Alert, 68-year-old obese female, sitting up at the bedside, on 2 L nasal cannula, comfortable in no apparent distress. HEAD: Normocephalic and atraumatic EYES: Normal reaction of pupils, equal size. NOSE: Clear with pink turbinates. THROAT: No erythema or exudates. NECK: No masses, no JVD. CHEST: No chest wall deformity. LUNGS: Equal air entry with minimal bibasilar inspiratory crackles. No wheeze, rhonchi or dullness. CVS: S1 and S2 normal with no audible murmur, regular rhythm. No extra heart sounds ABDOMEN: Obese abdomen, mildly distended, no guarding or rigidity, active bowel sounds, no hepatosplenomegaly. SPINE: No scoliosis or deformity SKIN: No rashes CENTRAL NERVOUS SYSTEM: No focal deficits, tone is normal in all 4 extremities. EXTREMITIES: There is no peripheral edema, clubbing, or cyanosis. Peripheral pulses are intact. - Labs CBC & Chem 7: 07/12/24 04:07 07/12/24 04:07 Labs: Abnormal Lab Results - Last 24 Hours (Table) 07/12/24 07/12/24 Range/Units 04:07 04:07 RBC 3.62 L (4.10-5.20) X 10*6/uL Hgb 10.8 L (12.0-15.0) g/dL Hct 33.6 L (37.2-46.3) % Immature Gran # 0.15 H (0.00-0.04) X 10*3/uL Chloride 110 H (96-109) mmol/L BUN 32.3 H (9.0-27.0) mg/dL Est GFR (CKD-EPI) 41 L (>=60) BUN/Creatinine Ratio 23.07 H (12.00-20.00) Ratio Calcium 8.6 L (8.7-10.3) mg/dL Total Bilirubin <0.2 L (0.3-1.2) mg/dL Total Protein 6.0 L (6.2-8.2) g/dL Albumin 3.6 L (3.8-4.9) g/dL Albumin/Globulin Ratio 1.50 L (1.60-3.17) Ratio Microbiology - Last 24 Hours (Table) 07/09/24 22:10 Blood Culture - Preliminary Blood Assessment and Plan Assessment: Acute on chronic hypoxemic respiratory failure, possibly secondary to a combination of diastolic congestive heart failure exacerbation and COPD exacerbation. Chest x-ray showing cardiomegaly with pulmonary vascular congestion and likely left basilar atelectasis. No obvious acute infectious infiltrates or pneumonia. NT proBNP elevated at 1460. Procalcitonin negative at 0.09 Atypical chest pain Abdominal pain, ultrasound revealed no acute findings Moderate COPD, with FEV1 70% of predicted Chronic oxygen dependence uses 2 to 3 L at bedtime while at home History of thoracic level compression fracture with recent T6 kyphoplasty, patient still reporting thoracic level back pain, her plan is to follow-up with a pain specialist outpatient Coronary artery disease, status post cardiac catheterization and coronary stenting Hypertension History of hyperlipidemia History of right lower extremity DVT Peripheral vascular disease History of GERD Fibromyalgia Chronic kidney disease, stage 3 Chronic anxiety/panic disorder History of lobectomy/wedge resection for a chronic infection which turned out to be scarring. Previous history of bowel resection and laparoscopic repair of incarcerated hernia Obesity Plan: The patient was seen and evaluated Ultrasound of the abdomen revealed no acute findings Labs and medications reviewed Stable and on 2 L nasal cannula Procalcitonin was negative at 0.07 Continued on Symbicort and DuoNeb inhalations Normal saline at 75 mL/h Titrate down the FiO2 as tolerated Increase her activity as tolerated This patient was seen independently by the pulmonary nurse practitioner ad dressing pulmonary issues I have personally seen and examined the patient, performed the documentation and the assessment and plan as written. Number of minutes spent on the visit: 25 Dictation was produced using [employer] dictation software. Please excuse any grammatical, word or spelling errors.
--- NOTE | 2024-07-12 14:22 | CT ---
EXAMINATION TYPE: CT angio chest DATE OF EXAM: 07/12/2024 COMPARISON: CTA chest May 10, 2024 HISTORY: Elevated d-dimer CT DLP: 428.90 mGycm. Automated Exposure Control for Dose Reduction was Utilized. CONTRAST: CTA scan of the thorax is performed with IV Contrast, patient injected with 80 mL of Isovue 370, pulm onary embolism protocol. MIP Images are created on CT scanner and reviewed. FINDINGS: LUNGS: Mild to moderate underlying emphysematous changes redemonstrated with peripheral upper lobe co llapse seen bilaterally. Scattered [id number] bilateral linear scarring is seen. No pleural eff usion. No new focal consolidation. MEDIASTINUM: There is satisfactory enhancement of the pulmonary artery and its branches, there is no CT evidence for pulmonary embolism. Some enhancement of the aorta without aneurysm or dissection. Mod erate to severe coronary artery calcification is redemonstrated. Cardiomegaly is redemonstrated. No p ericardial effusion is seen. OTHER: There is partial visualization asymmetric volume loss and cortical thinning in the right kidne y. There is partial visualization of pancreatic atrophy. Slight scoliotic curvature in the thoracic s pine is redemonstrated. There are mild to moderate compression type fractures in the midthoracic spin e redemonstrated with interval vertebroplasty noted at T6 level. IMPRESSION: 1. No CT evidence for acute pulmonary embolism. 2. Cardiomegaly and Chronic changes without acute pulmonary process. [facility], , 07/12/2024 2:20 PM
--- NOTE | 2024-07-12 23:58 | P.PN ---
Progress Note - Text Progress Note Date: 07/12/24 CHIEF COMPLAINT: Abdominal pain and chest pain HISTORY OF PRESENT ILLNESS: NAEO. Patient having BM's. Refused Lactulose this AM. PHYSICAL EXAM: VITAL SIGNS: Reviewed. GENERAL: Well-developed in no acute distress. HEENT: No sclera icterus. Extraocular movements grossly intact. Moist buccal mucosa. Head is atraumatic, normocephalic. ABDOMEN: Soft. Nondistended. Nontender. NEUROLOGIC: Alert and oriented. Cranial nerves II through XII grossly intact. ASSESSMENT: 1. Constipation likely contributing to patient's abdominal pain. Upper abdominal pain likely due to patient's cough. PLAN: -Continue lactulose twice daily -Encourage patient to ambulate -Regular Diet Daniel Atkins DO [facility] [phone]
--- NOTE | 2024-07-13 01:29 | CT ---
EXAM: CT Abdomen and Pelvis Without Intravenous Contrast CLINICAL HISTORY: ITS.REASON CT Reason: abdominal pain TECHNIQUE: Axial computed tomography images of the abdomen and pelvis without intravenous contrast. CTDI is 13.70 mGy and DLP is 660.8 mGy-cm. This CT exam was performed using one or more of the following dose reduction techniques: automated exposure control, adjustment of the mA and/or kV according to patient size, and/or use of iterative reconstruction technique. COMPARISON: No relevant prior studies available. FINDINGS: Lung bases: Unremarkable. No mass. No consolidation. ABDOMEN: Liver: Unremarkable. Gallbladder and bile ducts: Unremarkable. No calcified stones. No ductal dilation. Pancreas: Unremarkable. No ductal dilation. Spleen: Unremarkable. No splenomegaly. Adrenals: Unremarkable. No mass. Kidneys and ureters: Atrophy of the kidneys, worse on the RIGHT side. No obstructing stones. No hydronephrosis. Stomach and bowel: Diverticulosis, without acute diverticulitis. No small bowel obstruction. No free intraperitoneal air. PELVIS: Appendix: No findings to suggest acute appendicitis. Bladder: Unremarkable. No stones. Reproductive: Unremarkable as visualized. ABDOMEN and PELVIS: Intraperitoneal space: Unremarkable. No free air. No significant fluid collection. Bones/joints: Degenerative changes of the spine. Cement kyphoplasty at L4 and L5. No acute fracture. No dislocation. Soft tissues: Unremarkable. Vasculature: Atherosclerotic changes of the aorta. No abdominal aortic aneurysm. Lymph nodes: Unremarkable. No enlarged lymph nodes. IMPRESSION: 1. Atrophy of the kidneys, worse on the RIGHT side. 2. Diverticulosis, without acute diverticulitis. No small bowel obstruction. No free intraperitoneal air.
--- NOTE | 2024-07-13 08:06 | P.PN ---
Subjective Progress Note Date: 07/13/24 Patient is a 68-year-old female with past medical history significant for COPD, previous left-lung lobectomy, CAD with previous PCI/stenting, hypertension, hyperlipidemia, DVT, GERD, fibromyalgia, osteoporosis, compression fracture, with recent T6 kyphoplasty. Her primary care provider is Dr. Gregorio Garber. She does follow in the pulmonary office with Dr. Best for management of her COPD. She has an FEV1 70% of predicted. She does use supplemental oxygen at home at night 3 L/min. She uses a Symbicort inhaler and as needed albuterol inhaler. Patient presented the ED late last night with a chief complaint of epigastric pain. Pain is described as severe and constant, rated 10/10, radiating "under my ribs on both sides". This has reportedly been ongoing since her recent ER visit on June 17. She is also reporting some abdominal fullness and tautness. She has been more short of breath over the same timeframe. Reports a nonproductive cough, chest congestion, wheezing. Denies any fevers, chills, sputum production, hemoptysis. Denies any sick contacts. Denies radiating chest pain, heart palpitations, orthopnea, syncopal events. Denies lower extremity swelling. States she does take Lasix on an outpatient basis. Denies missing any doses. Workup in the ED included a chest x-ray demonstrating cardiomegaly with pulmonary vascular congestion and likely left basilar atelectasis. CBC is unremarkable for leukocytosis. CMP: Sodium 140, potassium 4.4, chloride 105, serum bicarb 27, BUN 25, creatinine 1.32, glucose 109. Troponins less than 0.012 x 2. NT proBNP 1460. Most recent available echocardiogram from May 2024, with normal LV function and mild to moderate mitral regurgitation. Negative for influenza, RSV, COVID. Patient is currently being evaluated in the ED, room 19. She is on 2 L/min nasal cannula, SpO2 is reading 97%. She is in no respiratory distress. Nontachypneic and without accessory muscle use. Nontoxic appearance. Current most recent vitals: Temperature 97.6 F, heart rate 67 bpm, blood pressure 143/74 mmHg, SpO2 97% on 2 L/min nasal cannula. The patient is seen today July 12, 2024 in follow-up on the regular medical floor. She is currently resting comfortably in bed. Awake and alert in no acute distress. Maintaining O2 saturations in the 90s on 2 L/min per nasal cannula. She has normal staying at 75 mL/h. She is still having some abdominal discomfort. Ultrasound of the abdomen was suboptimal but no suspicious new or acute findings identified. Calcitonin was negative at 0.09. Antibiotics were discontinued. She remains on Symbicort, DuoNeb inhalations. Heparin for DVT prophylaxis. Count 9.5. Hemoglobin 10.8. Platelets 260. Sodium 142. Potassium 4.3. Bicarb 22. BUN 32. Creatinine 1.4. Glucose 108. The patient is seen today July 13, 2024 in follow-up on the regular medical floor. She is awake and alert in no acute distress resting comfortably in bed. No worsening shortness of breath, cough or congestion. Still with some slight abdominal discomfort. CT angiogram ruled out pulmonary embolism. CT scan of the abdomen pelvis revealed no acute findings. She remains on DuoNeb in halations, Symbicort continued on doxycycline. Heparin for DVT prophylaxis. 0.9% normal saline at 100 mL/h. Objective - Vital Signs Vital signs: Vital Signs Temp 97.9 F 07/13/24 07:28 Pulse 64 07/13/24 07:28 Resp 18 07/13/24 07:28 BP 166/72 07/13/24 07:28 Pulse Ox 97 07/13/24 07:28 FiO2 Intake & Output 07/12/24 07/13/24 07/13/24 18:59 06:59 18:59 Intake Total 360 Balance 360 Intake: Oral 360 Other: # Voids 2 1 - Exam GENERAL EXAM: Alert, 68-year-old obese female, on 2 L nasal cannula, comfortable in no apparent distress. HEAD: Normocephalic and atraumatic EYES: Normal reaction of pupils, equal size. NOSE: Clear with pink turbinates. THROAT: No erythema or exudates. NECK: No masses, no JVD. CHEST: No chest wall deformity. LUNGS: Equal air entry with minimal bibasilar inspiratory crackles. No wheeze, rhonchi or dullness. CVS: S1 and S2 normal with no audible murmur, regular rhythm. No extra heart sounds ABDOMEN: Obese abdomen, no guarding or rigidity, active bowel sounds, no hepatosplenomegaly. SPINE: No scoliosis or deformity SKIN: No rashes CENTRAL NERVOUS SYSTEM: No focal deficits, tone is normal in all 4 extremities. EXTREMITIES: There is no peripheral edema, clubbing, or cyanosis. Peripheral pulses are intact. - Labs CBC & Chem 7: 07/12/24 04:07 07/12/24 04:07 Labs: Abnormal Lab Results - Last 24 Hours (Table) 07/12/24 07/12/24 Range/Units 04:07 04:07 RBC 3.62 L (4.10-5.20) X 10*6/uL Hgb 10.8 L (12.0-15.0) g/dL Hct 33.6 L (37.2-46.3) % Immature Gran # 0.15 H (0.00-0.04) X 10*3/uL Chloride 110 H (96-109) mmol/L BUN 32.3 H (9.0-27.0) mg/dL Est GFR (CKD-EPI) 41 L (>=60) BUN/Creatinine Ratio 23.07 H (12.00-20.00) Ratio Calcium 8.6 L (8.7-10.3) mg/dL Total Bilirubin <0.2 L (0.3-1.2) mg/dL Total Protein 6.0 L (6.2-8.2) g/dL Albumin 3.6 L (3.8-4.9) g/dL Albumin/Globulin Ratio 1.50 L (1.60-3.17) Ratio Microbiology - Last 24 Hours (Table) 07/09/24 22:10 Blood Culture - Preliminary Blood Assessment and Plan Assessment: Acute on chronic hypoxemic respiratory failure, possibly secondary to a combination of diastolic congestive heart failure exacerbation and COPD exacerbation. Chest x-ray showing cardiomegaly with pulmonary vascular congestion and likely left basilar atelectasis. No obvious acute infectious infiltrates or pneumonia. NT proBNP elevated at 1460. Procalcitonin negative at 0.09. CT angiogram ruled out pulmonary embolism Atypical chest pain Abdominal pain, ultrasound revealed no acute findings CT scan of the abdomen pelvis revealed no acute findings Moderate COPD, with FEV1 70% of predicted Chronic oxygen dependence uses 2 to 3 L at bedtime while at home History of thoracic level compression fracture with recent T6 kyphoplasty, patient still reporting thoracic level back pain, her plan is to follow-up with a pain specialist outpatient Coronary artery disease, status post cardiac catheterization and coronary stenting Hypertension History of hyperlipidemia History of right lower extremity DVT Peripheral vascular disease History of GERD Fibromyalgia Chronic kidney disease, stage 3 Chronic anxiety/panic disorder History of lobectomy/wedge resection for a chronic infection which turned out to be scarring. Previous history of bowel resection and laparoscopic repair of incarcerated hernia Obesity Plan: The patient was seen and evaluated CT angiogram ruled out pulmonary embolism CT of the abdomen pelvis ruled out acute findings Labs and medications reviewed Stable and on 2 L nasal cannula Continued on Symbicort and DuoNeb inhalations Titrate down the FiO2 as tolerated Increase her activity as tolerated Cleared for discharge from the pulmonary standpoint This patient was seen independently by the pulmonary nurse practitioner addressing pulmonary issues I have personally seen and examined the patient, performed the documentation and the assessment and plan as written. Number of minutes spent on the visit: 23 Dictation was produced using [employer] dictation software. Please excuse any grammatical, word or spelling errors.
--- NOTE | 2024-07-14 00:24 | P.PN ---
Progress Note - Text Progress Note Date: 07/13/24 CHIEF COMPLAINT: Abdominal pain and chest pain HISTORY OF PRESENT ILLNESS: Patient was having increased abdominal pain last night. CT-AP was perforned which showed no acute process. Her pain is better today and she feels much better. PHYSICAL EXAM: VITAL SIGNS: Reviewed. GENERAL: Well-developed in no acute distress. HEENT: No sclera icterus. Extraocular movements grossly intact. Moist buccal mucosa. Head is atraumatic, normocephalic. ABDOMEN: Soft. Nondistended. Nontender. NEUROLOGIC: Alert and oriented. Cranial nerves II through XII grossly intact. ASSESSMENT: 1. Constipation likely contributing to patient's abdominal pain. Upper abdominal pain likely due to patient's cough. PLAN: -Continue Bowel Regiment -Encourage patient to ambulate -Regular Diet Daniel Atkins DO [facility] [phone]
--- NOTE | 2024-07-14 01:27 | PN ---
PROGRESS NOTE A 68-year-old white female, still has a lot of wheezing, congestion, shortness of breath, wants to stay overnight again. Discussed with her, her chronic abdominal pain and surgical recommendations; hypertension acceleration. Continue on current treatments. Watch overnight, and discharge in the morning. OBJECTIVE: LUNGS: Show scattered wheeze, moderate x4. CARDIOVASCULAR: S1 and S2. HEMATOLOGY: Negative for Homans. PSYCHIATRIC: Fair mood and affect. ASSESSMENT: Chronic obstructive pulmonary disease exacerbation and bronchitis. She is doing antibiotics, Tessalon Perles, which are helping. CTA of the chest is negative for PE. Electrolytes. Troponins are negative. Discharge to home in the morning. MMODL / IJN: [id number] /
[2024-07-14 07:36] VITALS: BP 156/64; PULSE 64; RESP 16; TEMP 97.8
--- NOTE | 2024-07-14 18:45 | P.PN ---
Subjective Progress Note Date: 07/14/24 Patient is a 68-year-old female with past medical history significant for COPD, previous left-lung lobectomy, CAD with previous PCI/stenting, hypertension, hyperlipidemia, DVT, GERD, fibromyalgia, osteoporosis, compression fracture, with recent T6 kyphoplasty. Her primary care provider is Dr. Gregorio Garber. She does follow in the pulmonary office with Dr. Best for management of her COPD. She has an FEV1 70% of predicted. She does use supplemental oxygen at home at night 3 L/min. She uses a Symbicort inhaler and as needed albuterol inhaler. Patient presented the ED late last night with a chief complaint of epigastric pain. Pain is described as severe and constant, rated 10/10, radiating "under my ribs on both sides". This has reportedly been ongoing since her recent ER visit on June 17. She is also reporting some abdominal fullness and tautness. She has been more short of breath over the same timeframe. Reports a nonproductive cough, chest congestion, wheezing. Denies any fevers, chills, sputum production, hemoptysis. Denies any sick contacts. Denies radiating chest pain, heart palpitations, orthopnea, syncopal events. Denies lower extremity swelling. States she does take Lasix on an outpatient basis. Denies missing any doses. Workup in the ED included a chest x-ray demonstrating cardiomegaly with pulmonary vascular congestion and likely left basilar atelectasis. CBC is unremarkable for leukocytosis. CMP: Sodium 140, potassium 4.4, chloride 105, serum bicarb 27, BUN 25, creatinine 1.32, glucose 109. Troponins less than 0.012 x 2. NT proBNP 1460. Most recent available echocardiogram from May 2024, with normal LV function and mild to moderate mitral regurgitation. Negative for influenza, RSV, COVID. Patient is currently being evaluated in the ED, room 19. She is on 2 L/min nasal cannula, SpO2 is reading 97%. She is in no respiratory distress. Nontachypneic and without accessory muscle use. Nontoxic appearance. Current most recent vitals: Temperature 97.6 F, heart rate 67 bpm, blood pressure 143/74 mmHg, SpO2 97% on 2 L/min nasal cannula. The patient is seen today July 12, 2024 in follow-up on the regular medical floor. She is currently resting comfortably in bed. Awake and alert in no acute distress. Maintaining O2 saturations in the 90s on 2 L/min per nasal cannula. She has normal staying at 75 mL/h. She is still having some abdominal discomfort. Ultrasound of the abdomen was suboptimal but no suspicious new or acute findings identified. Calcitonin was negative at 0.09. Antibiotics were discontinued. She remains on Symbicort, DuoNeb inhalations. Heparin for DVT prophylaxis. Count 9.5. Hemoglobin 10.8. Platelets 260. Sodium 142. Potassium 4.3. Bicarb 22. BUN 32. Creatinine 1.4. Glucose 108. The patient is seen today July 13, 2024 in follow-up on the regular medical floor. She is awake and alert in no acute distress resting comfortably in bed. No worsening shortness of breath, cough or congestion. Still with some slight abdominal discomfort. CT angiogram ruled out pulmonary embolism. CT scan of the abdomen pelvis revealed no acute findings. She remains on DuoNeb inhalations, Symbicort continued on doxycycline. Heparin for DVT prophylaxis. 0.9% normal saline at 100 mL/h. On 07/14/2024, the patient is being seen for a follow-up. Patient is doing well with no specific complaints. The patient has been treated for COPD and CHF exacerbation. The patient has diastolic heart failure with an elevated proBNP level at time of admission. Procalcitonin level was not elevated and CT angiogram was negative for pulmonary embolism. Patient is stable. The patient is on 2 L of oxygen by nasal cannula with a pulse ox of 96%. Labs from today are not available. M most recent labs are from 07/12/2023. Renal function was improving and the creatinine was down to 1.4. Rest of the electrolytes were stable. The white cell count is at 9.5. The viral screen was negative. CT of the chest that was done at the time of admission showed no pulmonary embolism. There was cardiomegaly with chronic changes related to emphysema. CAT scan of the abdomen and pelvis on 07/13/2024 showed diverticulosis without diverticulitis. Objective - Vital Signs Vital signs: Vital Signs Temp 97.8 F 07/14/24 07:00 Pulse 64 07/14/24 07:00 Resp 16 07/14/24 07:00 BP 156/64 07/14/24 07:00 Pulse Ox 96 07/14/24 07:00 FiO2 Intake & Output 07/13/24 07/14/24 07/14/24 18:59 06:59 18:59 Intake Total 1450 Balance 1450 Intake: Oral 1450 Other: Voiding Method Toilet # Voids 3 2 - Exam GENERAL EXAM: Alert, 68-year-old obese female, on 2 L nasal cannula, comfortable in no apparent distress. HEAD: Normocephalic and atraumatic EYES: Normal reaction of pupils, equal size. NOSE: Clear with pink turbinates. THROAT: No erythema or exudates. NECK: No masses, no JVD. CHEST: No chest wall deformity. LUNGS: Equal air entry with minimal bibasilar inspiratory crackles. No wheeze, rhonchi or dullness. CVS: S1 and S2 normal with no audible murmur, regular rhythm. No extra heart sounds ABDOMEN: Obese abdomen, no guarding or rigidity, active bowel sounds, no hepatosplenomegaly. SPINE: No scoliosis or deformity SKIN: No rashes CENTRAL NERVOUS SYSTEM: No focal deficits, tone is normal in all 4 extremities. EXTREMITIES: There is no peripheral edema, clubbing, or cyanosis. Peripheral pulses are intact. - Labs CBC & Chem 7: 07/12/24 04:07 07/12/24 04:07 Labs: Microbiology - Last 24 Hours (Table) 07/09/24 22:10 Blood Culture - Preliminary Blood Assessment and Plan Plan: Acute on chronic hypoxemic respiratory failure, possibly secondary to a combination of diastolic congestive heart failure exacerbation and COPD exacerbation. Chest x-ray showing cardiomegaly with pulmonary vascular congesti on and likely left basilar atelectasis. No obvious acute infectious infiltrates or pneumonia. NT proBNP elevated at 1460. Procalcitonin negative at 0.09. CT angiogram ruled out pulmonary embolism Atypical chest pain Abdominal pain, ultrasound revealed no acute findings CT scan of the abdomen p silverio revealed no acute findings Moderate COPD, with FEV1 70% of predicted Chronic oxygen dependence uses 2 to 3 L at bedtime while at home History of thoracic level compression fracture with recent T6 kyphoplasty, patient still reporting thoracic level back pain, her plan is to follow-up with a pain specialist outpatient Coronary artery disease, status post cardiac catheterization and coronary stenting Hypertension History of hyperlipidemia History of right lower extremity DVT Peripheral vascular disease History of GERD Fibromyalgia Chronic kidney disease, stage 3 Chronic anxiety/panic disorder History of lobectomy/wedge resection for a chronic infection which turned out to be scarring. Previous history of bowel resection and laparoscopic repair of incarcerated hernia Obesity Plan: Clinically stable on 2 L of oxygen by nasal cannula CT angiogram ruled out pulmonary embolism, consistent with COPD CT of the abdomen pelvis ruled out acute findings other than chronic div erticulosis Labs and medications reviewed Stable and on 2 L nasal cannula Continued on Symbicort and DuoNeb inhalations Titrate down the FiO2 as tolerated Increase her activity as tolerated Renal function improved Cleared for discharge from the pulmonary standpoint
== END 2024-07-14 11:50 | disposition home or self-care (01) ==
LOC: EC 20:14 → 6NMEDSUR 21:43
PROVIDERS: ADMIT Family Medicine; ATTEND Family Medicine
DX: J96.21 Acute and chronic respiratory failure with hypoxia (principal); J44.0 Chronic obstructive pulmonary disease with (acute) lower respiratory infection; J44.1 Chronic obstructive pulmonary disease with (acute) exacerbation; J98.11 Atelectasis; J84.10 Pulmonary fibrosis, unspecified; I13.0 Hypertensive heart and chronic kidney disease with heart failure and stage 1 through stage 4 chronic kidney disease, or unspecified chronic kidney disease; N18.30 Chronic kidney disease, stage 3 unspecified; I25.10 Atherosclerotic heart disease of native coronary artery without angina pectoris; I50.33 Acute on chronic diastolic (congestive) heart failure; E66.9 Obesity, unspecified; E78.5 Hyperlipidemia, unspecified; F32.A Depression, unspecified; F41.0 Panic disorder [episodic paroxysmal anxiety]; G89.29 Other chronic pain; R10.9 Unspecified abdominal pain; K57.30 Diverticulosis of large intestine without perforation or abscess without bleeding; K59.00 Constipation, unspecified; I73.9 Peripheral vascular disease, unspecified; M48.54XA Collapsed vertebra, not elsewhere classified, thoracic region, initial encounter for fracture; M81.0 Age-related osteoporosis without current pathological fracture; M79.7 Fibromyalgia; K21.9 Gastro-esophageal reflux disease without esophagitis; M19.90 Unspecified osteoarthritis, unspecified site; Z99.81 Dependence on supplemental oxygen; Z68.31 Body mass index [BMI] 31.0-31.9, adult; Z79.51 Long term (current) use of inhaled steroids; Z79.899 Other long term (current) drug therapy; Z86.718 Personal history of other venous thrombosis and embolism; Z87.01 Personal history of pneumonia (recurrent); Z87.442 Personal history of urinary calculi; Z87.891 Personal history of nicotine dependence; Z90.2 Acquired absence of lung [part of]; Z90.49 Acquired absence of other specified parts of digestive tract; Z95.5 Presence of coronary angioplasty implant and graft; Z88.5 Allergy status to narcotic agent
CPT/HCPCS: 96361 ×2; 96366 ×3; 96372 ×4; 96368; 96376; 96365; 96375 ×2; 99285; 36415; 94640 ×8; 94760 ×2; 93005; 85379; 83880; 80053 ×2; 80048; 87449; 83690; 83735; 84484 ×2; 85025 ×2; 85027; 85610; 85730; 87040; 84145; 87636; 71045; 71046; 74019; 76700; 72128; 71275; 74176; G0378 ×6; J0360; J1644 ×4; J1940 ×2; J2405; J0456 ×2; J0696 ×2; J1171; J1885; Q9967; J2919

== ENCOUNTER 2024-08-28 16:55 | Observation (INO) | payer MEDICARE ==
[2024-08-28 17:42] LABS: Basophils % (A) 0 %; Eosinophils # (A) 0.3 k/uL (0-0.7); Eosinophils % (A) 3 %; HGB 12.7 gm/dL (11.4-16.0); Lymphocytes # (A) 0.9 k/uL (1.0-4.8); Lymphocytes % (A) 8 %; MCH 30.5 pg (25.0-35.0); MCHC 33.3 g/dL (31.0-37.0); MCV 91.6 fL (80.0-100.0); Mean Platelet Volume 6.9; Monocytes # (A) 0.5 k/uL (0-1.0); Monocytes % (A) 5 %; Neutrophils # (A) 9.4 k/uL (1.3-7.7); Neutrophils % (A) 83 %; Platelet Count 318 k/uL (150-450); RBC 4.16 m/uL (3.80-5.40); RDW 13.8 % (11.5-15.5); WBC 11.3 k/uL (3.8-10.6)
[2024-08-28 17:54] LABS: ALT 17 U/L (4-34); AST 21 U/L (14-36); African American GFR (CKD) 39 (>60 ml/min/1.73 sqM); Albumin 4.2 g/dL (3.5-5.0); Alkaline Phosphatase 130 U/L (38-126); Anion Gap 10 mmol/L; Blood Urea Nitrogen 29 mg/dL (7-17); Carbon Dioxide 29 mmol/L (22-30); Chloride 102 mmol/L (98-107); Glucose 111 mg/dL (74-99); Magnesium 1.8 mg/dL (1.6-2.3); Non-African American GFR(CKD) 33 (>60 ml/min/1.73 sqM); Potassium 3.8 mmol/L (3.5-5.1); Sodium 141 mmol/L (137-145); Total Bilirubin 0.7 mg/dL (0.2-1.3); Total Protein 7.3 g/dL (6.3-8.2)
--- NOTE | 2024-08-28 17:56 | XR ---
EXAMINATION TYPE: XR chest 2V DATE OF EXAM: 08/28/2024 5:50 PM COMPARISON: Chest radiographs from 07/10/2024 TECHNIQUE: XR chest 2V Frontal and lateral views of the chest. CLINICAL INDICATION:Female, 68 years old with history of difficulty breathing; FINDINGS: Lungs/Pleura: There is no evidence of pleural effusion, focal consolidation, or pneumothorax. Diffus e interstitial prominence. Heart/mediastinum: Cardiomediastinal silhouette is enlarged and stable. Musculoskeletal: No acute osseous pathology. Vertebral augmentation changes of the T6 vertebral body. Redemonstration of anterior wedge compression deformities of the T5 and T7 vertebral bodies. IMPRESSION: Similar mild cardiomegaly with diffuse interstitial prominence. Correlate for mild CHF. [facility], , 08/28/2024 5:53 PM
[2024-08-28 18:02] LABS: NT-Pro-B-Type Natriuretic Pept 721 pg/mL
[2024-08-28 18:10] LABS: INR 1.1 (<1.2); Partial Thromboplastin Time 23.1 sec (22.0-30.0); Prothrombin Time 11.5 sec (10.0-12.5)
--- NOTE | 2024-08-28 18:13 | ED ---
General Adult HPI - General Chief complaint: Shortness of Breath Stated complaint: L leg swelling Time Seen by Provider: 08/28/24 17:22 Source: patient, RN notes reviewed, old records reviewed Mode of arrival: wheelchair Limitations: no limitations - History of Present Illness Initial comments: 68-year-old female history of CHF presenting with increased dyspnea, abdominal distention and pain as well as swelling to the left lower extremity. Patient st ates her abdomen has been swollen and painful for several weeks including a recent admission to the hospital. She states that the leg is swollen over the past 1 to 2 days. No fever. She does report dyspnea which she believes is secondary to abdominal distention. - Related Data Home Medications Medication Instructions Recorded Confirmed clonazePAM [Clonazepam] 1 mg PO BID 02/20/14 08/28/24 Aspirin EC [Ecotrin Low Dose] 81 mg PO HS 01/27/20 08/28/24 Sertraline [Zoloft] 50 mg PO DAILY 06/28/22 08/28/24 hydrALAZINE HCL [Apresoline] 100 mg PO HS 10/18/22 08/28/24 Ipratropium-Albuterol Nebulize 3 ml INHALATION RT-BID 05/03/23 08/28/24 [Duoneb 0.5 mg-3 mg/3 ml Soln] Potassium Chloride ER [K-Dur 20] 20 meq PO HS 05/03/23 08/28/24 atenoloL [Tenormin] 50 mg PO HS 05/03/23 08/28/24 Nitroglycerin Sl Tabs [Nitrostat] 0.4 mg SL Q5M PRN 06/09/23 08/28/24 Atorvastatin [Lipitor] 80 mg PO HS 05/10/24 08/28/24 Immune Triple Support 1 tab PO HS 05/10/24 08/28/24 Linaclotide [Linzess] 290 mcg PO HS PRN 05/10/24 08/28/24 Magnesium Oxide [Mag-Ox] 400 mg PO HS 05/10/24 08/28/24 amLODIPine [Norvasc] 10 mg PO HS 05/10/24 08/28/24 methocarbamoL [Robaxin-750] 750 mg PO BID PRN 05/10/24 08/28/24 Hydrocodone/Acetaminophen 1 tab PO QID PRN 08/28/24 08/28/24 [Hydrocodone/Acetaminophen 10-300 mg] Previous Rx's Medication Instructions Recorded Pantoprazole [Protonix] 40 mg PO AC-BID 90 Days #180 tab 10/05/22 Budesonide-Formot 160-4.5 Mcg 2 puff INHALATION RT-BID each 05/17/24 [Symbicort 160-4.5 Mcg Inhaler] Furosemide [Lasix] 20 mg PO DAILY 90 Days #90 tab 05/17/24 Lactulose [Cephulac] 30 gm PO BID 30 Days #60 ml 07/13/24 Allergies Allergy/AdvReac Type Severity Reaction Status Date / Time hydrocodone bitartrate AdvReac Nausea & Verified 08/28/24 17:39 [From Vicodin] Vomiting - DENIES Reaction propoxyphene napsylate AdvReac Nausea & Verified 08/28/24 17:39 [From Darvocet-N 100] Vomiting - DENIES Reaction Review of Systems ROS Statement: Those systems with pertinent positive or pertinent negative responses have been documented in the HPI. ROS Other: All systems not noted in ROS Statement are negative. Past Medical History Past Medical History: Coronary Artery Disease (CAD), COPD, Deep Vein Thrombosis (DVT), Fibromyalgia, GERD/Reflux, Hyperlipidemia, Hypertension, Osteoarthritis (OA), Skin Disorder Additional Past Medical History / Comment(s): DIVERTICULITIS, HX KIDNEY STONE- still has it but it's never moved , Pneumonia, ROSACEA, DVT RLE 2007,gerson cataracts, BILAT ILIAC ARTERIES BLOCKED PER PT, pulmonary fibrosis History of Any Multi-Drug Resistant Organisms: None Reported Past Surgical History: Appendectomy, Bowel Resection, Heart Catheterization With Stent, Hernia Repair, Tubal Ligation Additional Past Surgical History / Comment(s): COLONOSCOPY, PARTIAL LT LOBECTOMY-(pt stated they thought i might of had tb but it was just scar tissue), D & C, 07-17-14 BOWEL RESECTION, HEART CATH W 2 STENTS AT [facility] [place] 11-15-15 , 12-18-17 lap robotic assisted repair of inc hernia Past Anesthesia/Blood Transfusion Reactions: No Reported Reaction Date of Last Stent Placement:: 11-15-15 AT [facility] [place] Past Psychological History: Anxiety, Panic Disorder Smoking Status: Former smoker Past Alcohol Use History: None Reported Past Drug Use History: None Reported - Past Family History Mother Family Medical History: Congestive Heart Failure (CHF) Father Family Medical History: Cancer Additional Family Medical History / Comment(s): TYPE OF CANCER NOT KNOWN General Exam Limitations: no limitations General appearance: alert, in no apparent distress Head exam: Present: atraumatic, normocephalic Eye exam: Present: normal appearance, PERRL ENT exam: Present: normal exam Neck exam: Present: normal inspection. Absent: tenderness, meningismus Respiratory exam: Present: decreased breath sounds. Absent: respiratory distress Cardiovascular Exam: Present: regular rate, normal rhythm GI/Abdominal exam: Present: soft, distended, tenderness Extremities exam: Present: pedal edema (Worse on the left) Neurological exam: Present: alert, oriented X3 Psychiatric exam: Present: normal affect, normal mood Skin exam: Present: warm, dry, intact Course Vital Signs 08/28/24 08/28/24 08/28/24 16:57 17:17 17:23 Temperature 97.9 F Pulse Rate 62 68 Respiratory 20 16 24 Rate Blood Pressure 162/62 160/75 O2 Sat by Pulse 95 96 Oximetry 08/28/24 08/28/24 17:56 19:30 Temperature Pulse Rate 62 59 L Respiratory 24 18 Rate Blood Pressure 157/77 152/78 O2 Sat by Pulse 92 L 96 Oximetry Medical Decision Making - Medical Decision Making Was pt. sent in by a medical professional or institution (CHARLI Stallings, CORPORATE ATTORNEY, urgent care, hospital, or [facility]...) When possible be specific @ -No Did you speak to anyone other than the patient for history (EMS, parent, family, police, friend...)? What history was obtained from this source @ -No Did you review nursing and triage notes (agree or disagree)? Why? @ -I reviewed and agree with nursing and triage notes Were old charts reviewed (outside hosp., previous admission, EMS record, old EKG, old radiological studies, urgent care reports/EKG's, [facility] records)? Report findings @ -No old charts were reviewed Differential Dyspnea: Coronary syndrome, arrhythmia, tamponade, asthma, COPD, pulmonary embolism, pneumonia, pneumothorax, pulmonary effusion, anaphylaxis, diabetic ketoacidosis, flailed chest, pulmonary contusion, diaphragmatic rupture, anemia, neuromuscular, this is not meant to be an all-inclusive list. EKG interpreted by me (3pts min.). @ -Sinus bradycardia rate of 58 IL interval 157, QRS duration 86, QTc [address] segment elevation X-rays interpreted by me (1pt min.). @ -[Chest x-ray showing cardiomegaly and mild pulmonary vascular congestion CT interpreted by me (1pt min.). @ -None done U/S interpreted by me (1pt. min.). @ -[Ultrasound of the abdomen to rule out ascites is negative, ultrasound of the left leg is negative for DVT What testing was considered but not performed or refused? (CT, X-rays, U/S, labs)? Why? @ -None What meds were considered but not given or refused? Why? @ -None Did you discuss the management of the patient with other professionals (professionals i.e. , PA, CORPORATE ATTORNEY, lab, RT, psych nurse, social work associate, credit assessment analyst, teacher, business services officer, rn case manager)? Give summary @ -[Case discussed with Dr. Sparks who will admit Was smoking cessation discussed for >3mins.? @ -No Was critical care preformed (if so, how long)? @ -No Were there social determinants of health that impacted care today? How? (Homelessness, low income, unemployed, alcoholism, drug addiction, transportation, low edu. Level, literacy, decrease access to med. care, retirement, rehab)? @ -No Was there de-escalation of care discussed even if they declined (Discuss DNR or withdrawal of care, Hospice)? DNR status @ -No What co-morbidities impacted this encounter? (DM, HTN, Smoking, COPD, CAD, Cancer, CVA, ARF, Chemo, Hep., AIDS, mental health diagnosis, sleep apnea, morbid obesity)? @ -[COPD, CHF Was patient admitted / discharged? Hospital course, mention meds given and route, prescriptions, significant lab abnormalities, going to OR and other pertinent info. @ 68 yo female presenting for increased dyspnea, abdominal distention and lower extremity swelling. Patient has history of CHF. She does have edema which is worse on the left leg. This is evaluated with ultrasound to ensure there is no DVT. No DVT present on ultrasound. Patient has chest x-ray showing mild CHF. Patient started on IV diuresis in the emergency department. She will be observed for further diuresis. Undiagnosed new problem with uncertain prognosis? @ -No Drug Therapy requiring intensive monitoring for toxicity (Heparin, Nitro, Insulin, Cardizem)? @ -No Were any procedures done? @ -No Diagnosis/symptom? @CHF Acute, or Chronic, or Acute on Chronic? @ -Acute on chronic Uncomplicated (without systemic symptoms) or Complicated (systemic symptoms)? @ -Default Side effects of treatment? @ -No Exacerbation, Progression, or Severe Exacerbation? @ -No Poses a threat to life or bodily function? How? (Chest pain, [place], [place], pneumonia, PE, COPD, DKA, ARF, appy, cholecystitis, CVA, Diverticulitis, Homicidal, Suicidal, threat to staff... and all critical care pts) @ -Low risk at this time - Lab Data Result diagrams: 08/28/24 17:21 08/28/24 17:21 Lab Results 08/28/24 08/28/24 08/28/24 Range/Units 17:21 17:21 17:21 WBC 11.3 H (3.8-10.6) k/uL RBC 4.16 (3.80-5.40) m/uL Hgb 12.7 (11.4-16.0) gm/dL Hct 38.0 (34.0-46.0) % MCV 91.6 (80.0-100.0) fL MCH 30.5 (25.0-35.0) pg MCHC 33.3 (31.0-37.0) g/dL RDW 13.8 (11.5-15.5) % Plt Count 318 (150-450) k/uL MPV 6.9 Neutrophils % 83 % Lymphocytes % 8 % Monocytes % 5 % Eosinophils % 3 % Basophils % 0 % Neutrophils # 9.4 H (1.3-7.7) k/uL Lymphocytes # 0.9 L (1.0-4.8) k/uL Monocytes # 0.5 (0-1.0) k/uL Eosinophils # 0.3 (0-0.7) k/uL Basophils # 0.0 (0-0.2) k/uL PT 11.5 (10.0-12.5) sec INR 1.1 (<1.2) APTT 23.1 (22.0-30.0) sec Sodium 141 (137-145) mmol/L Potassium 3.8 (3.5-5.1) mmol/L Chloride 102 (98-107) mmol/L Carbon Dioxide 29 (22-30) mmol/L Anion Gap 10 mmol/L BUN 29 H (7-17) mg/dL Creatinine 1.57 H (0.52-1.04) mg/dL Est GFR (CKD-EPI)AfAm 39 (>60 ml/min/1.73 sqM) Est GFR (CKD-EPI)NonAf 33 (>60 ml/min/1.73 sqM) Glucose 111 H (74-99) mg/dL Calcium 9.0 (8.4-10.2) mg/dL Magnesium 1.8 (1.6-2.3) mg/dL Total Bilirubin 0.7 (0.2-1.3) mg/dL AST 21 (14-36) U/L ALT 17 (4-34) U/L Alkaline Phosphatase 130 H (38-126) U/L Troponin I (0.000-0.034) ng/mL NT-Pro-B Natriuret Pep 721 pg/mL Total Protein 7.3 (6.3-8.2) g/dL Albumin 4.2 (3.5-5.0) g/dL 08/28/24 Range/Units 17:21 WBC (3.8-10.6) k/uL RBC (3.80-5.40) m/uL Hgb (11.4-16.0) gm/dL Hct (34.0-46.0) % MCV (80.0-100.0) fL MCH (25.0-35.0) pg MCHC (31.0-37.0) g/dL RDW (11.5-15.5) % Plt Count (150-450) k/uL MPV Neutrophils % % Lymphocytes % % Monocytes % % Eosinophils % % Basophils % % Neutrophils # (1.3-7.7) k/uL Lymphocytes # (1.0-4.8) k/uL Monocytes # (0-1.0) k/uL Eosinophils # (0-0.7) k/uL Basophils # (0-0.2) k/uL PT (10.0-12.5) sec INR (<1.2) APTT (22.0-30.0) sec Sodium (137-145) mmol/L Potassium (3.5-5.1) mmol/L Chloride (98-107) mmol/L Carbon Dioxide (22-30) mmol/L Anion Gap mmol/L BUN (7-17) mg/dL Creatinine (0.52-1.04) mg/dL Est GFR (CKD-EPI)AfAm (>60 ml/min/1.73 sqM) Est GFR (CKD-EPI)NonAf (>60 ml/min/1.73 sqM) Glucose (74-99) mg/dL Calcium (8.4-10.2) mg/dL Magnesium (1.6-2.3) mg/dL Total Bilirubin (0.2-1.3) mg/dL AST (14-36) U/L ALT (4-34) U/L Alkaline Phosphatase (38-126) U/L Troponin I <0.012 (0.000-0.034) ng/mL NT-Pro-B Natriuret Pep pg/mL Total Protein (6.3-8.2) g/dL Albumin (3.5-5.0) g/dL Disposition Clinical Impression: CHF (congestive heart failure) Disposition: ADMITTED IP TO THIS HOSP Condition: Stable Is patient prescribed a controlled substance at d/c from ED?: No Referrals: Gregorio Garber MD [Primary Care Provider] - 1-2 days Time of Disposition: 19:43
[2024-08-28] MEDS: HYDROmorphone 0.5 MG/0.5 ML SYRINGE IVP STA (18:33)
--- NOTE | 2024-08-28 18:53 | US ---
EXAMINATION TYPE: US abdomen limited DATE OF EXAM: 08/28/2024 COMPARISON: CT 07/12/2024, US 07/12/24 CLINICAL INDICATION: Female, 68 years old with history of swelling; ascites check. swelling. pt state s abd fullness TECHNIQUE: Grayscale imaging of the abdomen for ascites. FINDINGS: no sonographic evidence of ascites at this time IMPRESSION: No evidence for ascites. [facility], , 08/28/2024 6:51 PM
--- NOTE | 2024-08-28 18:53 | US ---
EXAMINATION TYPE: US venous doppler duplex LE LT DATE OF EXAM: 08/28/2024 6:31 PM COMPARISON: NONE CLINICAL INDICATION: Female, 68 years old with history of swelling; pt states leg swelling. hx dvt ri ght leg. takes aspirin. , Pain TECHNIQUE: The lower extremity deep venous system is examined utilizing real time linear array sonog peggy with graded compression, color doppler sonography, and spectral doppler. SIDE PERFORMED: left FINDINGS: VESSELS IMAGED: Common Femoral Vein Deep Femoral Vein Greater Saphenous Vein * Femoral Vein Popliteal Vein Small Saphenous Vein * Proximal Calf Veins (* superficial vessels) Left Leg: appears negative for dvt. Patient unable to tolerate compression in the distal femoral vei n, Color Doppler imaging shows patency of the vessels. Spectral waveforms are within normal limits. IMPRESSION: No ultrasound evidence for deep venous thrombosis. [facility], , 08/28/2024 6:50 PM
[2024-08-28] MEDS: FUROSEMIDE 10 MG/ML 4 ML VIAL IV STA (19:29)
[2024-08-28] MEDS ORDERED: ACETAMINOPHEN TAB 325 MG TAB PO PRN (19:38)
[2024-08-28] MEDS ORDERED: NALOXONE 0.4 MG/ML 1 ML VIAL IV PRN (19:38)
--- NOTE | 2024-08-28 19:53 | XR ---
EXAMINATION TYPE: XR KUB DATE OF EXAM: 08/28/2024 7:11 PM COMPARISON: 04/20/2019 CLINICAL INDICATION: Female, 68 years old with history of ab distention; TECHNIQUE: One radiographic view of the abdomen was obtained. FINDINGS: The bowel gas pattern is nonspecific without dilated loops of small or large bowel. . Fecal material and gas are demonstrated throughout the colon and rectum. There is no evidence for organome elsi or pneumoperitoneum. No acute osseous process. No abnormal calcifications are present. Vertebr oplasty cement in the lower spine. Scoliosis changes. Stent graft is noted the bilateral common iliac arteries. IMPRESSION: Nonspecific bowel gas pattern without radiographic evidence for acute process. [facility], , 08/28/2024 7:50 PM
[2024-08-28] MEDS: FUROSEMIDE 10 MG/ML 4 ML VIAL IV SCH (20:37)
[2024-08-28] MEDS ORDERED: NITROGLYCERIN SL TABS 0.4 MG TAB SUBLINGUAL PRN (20:44)
[2024-08-28] MEDS ORDERED: NON FORMULARY DRUG (Linaclotide [Linzess] 290 MCG Capsule) PO PRN (20:44)
[2024-08-28] MEDS ORDERED: ONDANSETRON 4 MG/2 ML VIAL IVP PRN (20:46)
[2024-08-28] MEDS: amLODIPine 10 MG TAB PO SCH (21:57)
[2024-08-28] MEDS: ATORVASTATIN 80 MG TAB PO SCH (21:58)
[2024-08-28] MEDS: ASPIRIN 81 MG PO SCH (21:58)
[2024-08-28] MEDS: atenoloL 50 MG TAB PO SCH (21:58)
[2024-08-28] MEDS: POTASSIUM CHLORIDE ER 20 MEQ TAB.ER PO SCH (21:58)
[2024-08-28] MEDS: clonazePAM 1 MG TAB PO SCH (21:58)
[2024-08-28] MEDS: MAGNESIUM OXIDE 400 MG TAB PO SCH (21:58)
[2024-08-28] MEDS: ENOXAPARIN 40 MG/0.4 ML SYRINGE SQ SCH (21:59)
[2024-08-28] MEDS: PANTOPRAZOLE 40 MG TABLET PO SCH (21:59)
[2024-08-28] MEDS: LACTULOSE 20 GM/30 ML CUP PO SCH (21:59)
[2024-08-28] MEDS: HYDROcodone/APAP 10-325MG 1 EACH TAB PO PRN (21:59)
[2024-08-28] MEDS: methocarbamoL 750 MG TAB PO PRN (22:35)
[2024-08-29] MEDS: SYMBICORT 160-4.5 MCG INHALER INHALATION SCH (00:21)
[2024-08-29 04:13] LABS: African American GFR (CKD) 38 (>60 ml/min/1.73 sqM); Anion Gap 10 mmol/L; Blood Urea Nitrogen 29 mg/dL (7-17); Carbon Dioxide 28 mmol/L (22-30); Chloride 102 mmol/L (98-107); Glucose 139 mg/dL (74-99); Non-African American GFR(CKD) 33 (>60 ml/min/1.73 sqM); Potassium 3.8 mmol/L (3.5-5.1); Sodium 140 mmol/L (137-145)
[2024-08-29] MEDS: IPRATROPIUM-ALBUTEROL 3 ML NEB INHALATION SCH (09:14)
[2024-08-29] MEDS: ENOXAPARIN 30 MG/0.3 ML SYRINGE SQ SCH (09:14)
[2024-08-29] MEDS: SERTRALINE 50 MG TAB PO SCH (09:14)
--- NOTE | 2024-08-29 11:13 | P.CRDCN ---
History of Present Illness Consult date: 08/29/24 Consult reason: congestive heart failure History of present illness: This is a 68-year-old female patient of Dr. Kim with past medical history of coronary artery disease with prior stenting of the RCA, lower extremity PAD with prior angioplasty and stenting of bilateral iliac as well as hypertension, dyslipidemia, overweight, history of tobacco use, history of lung surgery, chronic low back pain. We have been asked to evaluate the patient for CHF. Patient states that she had developed swelling in her stomach as well as abdominal pain. She states she has some shortness of breath because of the pressure of the abdomen on her chest. Her pain is in the epigastric area. Her breathing is okay at this time. She has minimal edema to the lower extremities which is improved according to the patient. She has been started on Lasix 40 mg every 12 hours and was previously on 20 mg daily at home. Patient had a recent hospitalization 07/09 - 07/14 and was seen by cardiology at that time for atypical chest pain with negative troponins. Blood pressure 163/73, heart rate 53, pulse ox 92% on room air. -EKG: Sinus rhythm with no acute ST-T wave changes -Chest x-ray: Similar mild cardiomegaly with diffuse interstitial prominence. Correlate for mild CHF. -Abdominal x-ray showed nonspecific bowel gas pattern. -Abdominal ultrasound reveals no evidence of ascites. -Venous duplex of the left lower extremity reveals no DVT. -Laboratory studies: WBC 11.3, hemoglobin 12.7. Electrolytes are normal. BUN 29 and creatinine 1.59. Alkaline phosphatase 130. Troponin negative x 1. proBNP 721. -Home cardiac medications: Amlodipine 10 mg daily at bedtime, aspirin 81 mg at bedtime, atenolol 50 mg at bedtime, atorvastatin 80 mg at bedtime, Lasix 20 mg daily, magnesium oxide 400 mg at bedtime, Nitrostat as needed, potassium chloride 20 mill equivalents at bedtime. -Echocardiogram obtained in May 2024 revealed ejection fraction 50 to 55%, mild to moderate MR trace to mild aortic regurgitation, mild TR -Patient underwent Lexiscan stress test in January 2020 which was negative for ischemia Review Of Systems: At the time of my exam: CONSTITUTIONAL: Denies fever or chills. HEENT: Denies blurred vision, vision changes, or eye pain. Denies hemoptysis CARDIOVASCULAR: Denies chest pain. Denies orthopnea. Denies PND. Denies palpitations RESPIRATORY: Denies shortness of breath. GASTROINTESTINAL: Reports abdominal pain. Denies nausea or vomiting. HEMATOLOGIC: Denies bleeding disorders. GENITOURINARY: Denies any blood in urine. SKIN: Denies puritis. Denies rash. Physical examination: Gen: This is 68-year-old female sitting in recliner and appears to be in no acute distress. VS: reviewed HEENT: Head is atraumatic, normocephalic. Pupils equal, round. Sclerae is anicteric. NECK: Supple. No JVD. LUNGS: Clear to auscultation. No wheezes or rhonchi. No intercostal retractions. HEART: Regular rate and rhythm. Systolic murmur. ABDOMEN: Soft + epigastric tenderness. EXTREMITIES: No pedal edema. No calf tenderness. NEUROLOGICAL: Patient is awake, alert and oriented x3. Assessment: Epigastric pain Possibly mild acute diastolic heart failure History of coronary artery disease with prior stenting of the RCA Lower extremity PAD with prior angioplasty and stenting of bilateral iliac Hypertension Dyslipidemia Obesity Chronic back pain Plan: Resume patient's home cardiac medications Discontinue IV Lasix and transition to oral Lasix 40 mg daily Recommend possible surgical workup for abdominal pain Cardiology will sign off this case and follow on an as-needed basis. Please reconsult for any new concerns. Patient may follow-up in the office in one to 2 weeks. Thank you kindly for this consultation. Nurse practitioner note has been reviewed, I agree with documented findings and plan of care. Patient was seen and examined. Past Medical History Past Medical History: Coronary Artery Disease (CAD), COPD, Deep Vein Thrombosis (DVT), Fibromyalgia, GERD/Reflux, Hyperlipidemia, Hypertension, Osteoarthritis (OA), Skin Disorder, Sleep Apnea/CPAP/BIPAP Additional Past Medical History / Comment(s): DIVERTICULITIS, HX KIDNEY STONE- still has it but it's never moved , Pneumonia, ROSACEA, DVT RLE 2007,gerson cataracts, BILAT ILIAC ARTERIES BLOCKED PER PT, pulmonary fibrosis History of Any Multi-Drug Resistant Organisms: None Reported Past Surgical History: Appendectomy, Bowel Resection, Heart Catheterization With Stent, Hernia Repair, Tubal Ligation Additional Past Surgical History / Comment(s): COLONOSCOPY, PARTIAL LT LOBECTOMY-(pt stated they thought i might of had tb but it was just scar tissue), D & C, 07-17-14 BOWEL RESECTION, HEART CATH W 2 STENTS AT [facility] 11-15-15 , 12-18-17 lap robotic assisted repair of inc hernia Past Anesthesia/Blood Transfusion Reactions: No Reported Reaction Date of Last Stent Placement:: 11-15-15 AT [facility] Past Psychological History: Anxiety, Panic Disorder Additional Psychological History / Comment(s): PT IS INDEPENDANT-drives,LIVES WITH SPOUSE Smoking Status: Former smoker Past Alcohol Use History: None Reported Additional Past Alcohol Use History / Comment(s): smoked since age 13 1ppd; QUIT 2008 Past Drug Use History: None Reported - Past Family History Mother Family Medical History: Congestive Heart Failure (CHF) Father Family Medical History: Cancer Additional Family Medical History / Comment(s): TYPE OF CANCER NOT KNOWN Medications and Allergies Home Medications Medication Instructions Recorded Confirmed Type clonazePAM [Clonazepam] 1 mg PO BID 02/20/14 08/28/24 History Aspirin EC [Ecotrin Low Dose] 81 mg PO HS 01/27/20 08/28/24 History Sertraline [Zoloft] 50 mg PO DAILY 06/28/22 08/28/24 History Pantoprazole [Protonix] 40 mg PO AC-BID 90 Days #180 tab 10/05/22 08/28/24 Rx hydrALAZINE HCL [Apresoline] 100 mg PO HS 10/18/22 08/28/24 History Ipratropium-Albuterol Nebulize 3 ml INHALATION RT-BID 05/03/23 08/28/24 History [Duoneb 0.5 mg-3 mg/3 ml Soln] Potassium Chloride ER [K-Dur 20] 20 meq PO HS 05/03/23 08/28/24 History atenoloL [Tenormin] 50 mg PO HS 05/03/23 08/28/24 History Nitroglycerin Sl Tabs [Nitrostat] 0.4 mg SL Q5M PRN 06/09/23 08/28/24 History Atorvastatin [Lipitor] 80 mg PO HS 05/10/24 08/28/24 History Immune Triple Support 1 tab PO HS 05/10/24 08/28/24 History Linaclotide [Linzess] 290 mcg PO HS PRN 05/10/24 08/28/24 History Magnesium Oxide [Mag-Ox] 400 mg PO HS 05/10/24 08/28/24 History amLODIPine [Norvasc] 10 mg PO HS 05/10/24 08/28/24 History methocarbamoL [Robaxin-750] 750 mg PO BID PRN 05/10/24 08/28/24 History Budesonide-Formot 160-4.5 Mcg 2 puff INHALATION RT-BID each 05/17/24 08/28/24 Rx [Symbicort 160-4.5 Mcg Inhaler] Furosemide [Lasix] 20 mg PO DAILY 90 Days #90 tab 05/17/24 08/28/24 Rx Lactulose [Cephulac] 30 gm PO BID 30 Days #60 ml 07/13/24 08/28/24 Rx Hydrocodone/Acetaminophen 1 tab PO QID PRN 08/28/24 08/28/24 History [Hydrocodone/Acetaminophen 10-300 mg] Allergies Allergy/AdvReac Type Severity Reaction Status Date / Time hydrocodone bitartrate AdvReac Nausea & Verified 08/28/24 17:39 [From Vicodin] Vomiting - DENIES Reaction propoxyphene napsylate AdvReac Nausea & Verified 08/28/24 17:39 [From Darvocet-N 100] Vomiting - DENIES Reaction Physical Exam Vitals: Vital Signs Temp Pulse Pulse Pulse Resp BP BP 08/29/24 09:15 55 L 08/29/24 07:35 97.6 F 53 L 18 08/29/24 02:20 50 L 08/29/24 01:53 98.5 F 55 L 16 08/29/24 00:06 54 L 08/28/24 22:06 61 171/90 08/28/24 21:09 60 18 135/95 08/28/24 19:30 59 L 18 152/78 08/28/24 17:56 62 24 157/77 08/28/24 17:23 24 08/28/24 17:17 68 16 160/75 08/28/24 16:57 97.9 F 62 20 162/62 BP Pulse Ox 08/29/24 09:15 08/29/24 07:35 163/73 92 L 08/29/24 02:20 08/29/24 01:53 125/67 96 08/29/24 00:06 133/68 08/28/24 22:06 98 08/28/24 21:09 95 08/28/24 19:30 96 08/28/24 17:56 92 L 08/28/24 17:23 08/28/24 17:17 96 08/28/24 16:57 95 Intake and Output 08/28/24 08/29/24 08/29/24 22:59 06:59 14:59 Other: # Voids 2 3 Weight 68.039 kg 70.942 kg Results 08/28/24 17:21 08/29/24 02:55 Cardiac Enzymes 08/28/24 08/28/24 Range/Units 17:21 17:21 AST 21 (14-36) U/L Troponin I <0.012 (0.000-0.034) ng/mL Coagulation 08/28/24 Range/Units 17:21 PT 11.5 (10.0-12.5) sec APTT 23.1 (22.0-30.0) sec CBC 08/28/24 Range/Units 17:21 WBC 11.3 H (3.8-10.6) k/uL RBC 4.16 (3.80-5.40) m/uL Hgb 12.7 (11.4-16.0) gm/dL Hct 38.0 (34.0-46.0) % Plt Count 318 (150-450) k/uL Comprehensive Metabolic Panel 08/28/24 08/29/24 Range/Units 17:21 02:55 Sodium 141 140 (137-145) mmol/L Potassium 3.8 3.8 (3.5-5.1) mmol/L Chloride 102 102 (98-107) mmol/L Carbon Dioxide 29 28 (22-30) mmol/L BUN 29 H 29 H (7-17) mg/dL Creatinine 1.57 H 1.59 H (0.52-1.04) mg/dL Glucose 111 H 139 H (74-99) mg/dL Calcium 9.0 9.0 (8.4-10.2) mg/dL AST 21 (14-36) U/L ALT 17 (4-34) U/L Alkaline Phosphatase 130 H (38-126) U/L Total Protein 7.3 (6.3-8.2) g/dL Albumin 4.2 (3.5-5.0) g/dL Current Medications Generic Name Dose Route Start Last Admin Trade Name Freq PRN Reason Stop Dose Admin Acetaminophen 650 mg 08/28/24 19:38 Acetaminophen Tab 325 Mg Tab PO Q6HR PRN Mild Pain or Fever > 100.5 Hydrocodone Bitart/Acetaminophen 1 each 08/28/24 20:44 08/29/24 06:32 Hydrocodone/Apap 10-325mg 1 Each Tab PO 1 each QID PRN Administration Moderate Pain (Scale 4 to 6) Albuterol/Ipratropium 3 ml 08/29/24 08:00 08/29/24 09:14 Ipratropium-Albuterol 3 Ml Neb INHALATION 3 ml RT-BID JUAN J Administration Amlodipine Besylate 10 mg 08/28/24 21:00 08/28/24 21:57 Amlodipine 10 Mg Tab PO 10 mg HS JUAN J Administration Aspirin 81 mg 08/28/24 21:00 08/28/24 21:58 Aspirin 81 Mg PO 81 mg HS JUAN J Administration Atenolol 50 mg 08/28/24 21:00 08/28/24 21:58 Atenolol 50 Mg Tab PO 50 mg HS JUAN J Administration Atorvastatin Calcium 80 mg 08/28/24 21:00 08/28/24 21:58 Atorvastatin 80 Mg Tab PO 80 mg HS JUAN J Administration Budesonide/Formoterol Fumarate 2 puff 08/28/24 20:44 08/29/24 09:14 Symbicort 160-4.5 Mcg Inhaler INHALATION 2 puff RT-BID JUAN J Administration Calcium Carbonate/Glycine 1,000 mg 08/28/24 20:46 Calcium Carbonate 500 Mg Chewable PO Q4HR PRN Dyspepsia Clonazepam 1 mg 08/28/24 21:00 08/29/24 09:14 Clonazepam 1 Mg Tab PO 1 mg BID JUAN J Administration Enoxaparin Sodium 30 mg 08/29/24 09:00 08/29/24 09:14 Enoxaparin 30 Mg/0.3 Ml Syringe SQ 30 mg DAILY JUAN J Administration Furosemide 40 mg 08/28/24 21:00 08/29/24 09:13 Furosemide 10 Mg/Ml 4 Ml Vial IV 40 mg Q12HR JUAN J Administration Hydromorphone HCl 0.5 mg 08/28/24 19:38 Hydromorphone 0.5 Mg/0.5 Ml Syringe IVP Q3HR PRN Severe Pain (Scale 7 to 10) Lactulose 30 gm 08/28/24 21:00 08/29/24 09:14 Lactulose 20 Gm/30 Ml Cup PO 30 gm BID JUAN J Administration Magnesium Oxide 400 mg 08/28/24 21:00 08/28/24 21:58 Magnesium Oxide 400 Mg Tab PO 400 mg HS JUAN J Administration Methocarbamol 750 mg 08/28/24 20:44 08/28/24 22:35 Methocarbamol 750 Mg Tab PO 750 mg BID PRN Administration Muscle Spasm Naloxone HCl 0.2 mg 08/28/24 19:38 Naloxone 0.4 Mg/Ml 1 Ml Vial IV Q2M PRN Opioid Reversal Nitroglycerin 0.4 mg 08/28/24 20:44 Nitroglycerin Sl Tabs 0.4 Mg Tab SUBLINGUAL Q5M PRN Chest Pain Non-Formulary Medication 290 mcg 08/28/24 20:44 Linaclotide [Linzess] PO HS PRN Constipation Ondansetron HCl 4 mg 08/28/24 20:46 Ondansetron 4 Mg/2 Ml Vial IVP Q8HR PRN Nausea And Vomiting Pantoprazole Sodium 40 mg 08/28/24 20:45 08/29/24 06:32 Pantoprazole 40 Mg Tablet PO 40 mg AC-BID JUAN J Administration Potassium Chloride 20 meq 08/28/24 21:00 08/28/24 21:58 Potassium Chloride Er 20 Meq Tab.Er PO 20 meq HS JUAN J Administration Sertraline HCl 50 mg 08/29/24 09:00 08/29/24 09:14 Sertraline 50 Mg Tab PO 50 mg DAILY JUAN J Administration Intake and Output 08/28/24 08/29/24 08/29/24 22:59 06:59 14:59 Other: # Voids 2 3 Weight 68.039 kg 70.942 kg Patient Weight 08/30/24 06:59 Weight 70.942 kg 08/28/24 17:21 08/29/24 02:55
[2024-08-29] MEDS: MAGNESIUM CITRATE 296 ML BOTTLE PO ONE (11:40)
--- NOTE | 2024-08-29 13:53 | P.HPIM ---
History of Present Illness H&P Date: 08/29/24 Chief Complaint: Abdominal distention I am rounding for Gregorio Leon 68-year-old patient with medical conditions including CAD with stent several years ago out of [facility], COPD, DVT fibromyalgia GERD hypertension hyperlipidemia osteoarthritis follow-up sleep apnea uses oxygen at night kidney stones, PAD with stents in the leg from Dr. Kim arthritis several joints. Patient presented some abdominal distention. Feels bloated. Able to tolerate diet. No nausea vomiting. No fever no chills. No abdominal pain per se just some discomfort. Normally has 1-2 bowel movements a week. Patient was last admission in July of this year underwent extensive workup with Dr. Sinclair's team from general surgery. CT scan of the abdomen showed: Atrophy of the kidney worse on the right side. Diverticulosis. Abdominal ultrasound: Cortical thinning of the kidneys. Abdominal x-ray: Moderate stool specially the right side. Last admission symptoms were felt to be from constipation. Patient does feel that she not had a good bowel movement. Sometimes some just l iquid stool. Review of systems: GEN.: None EYES: None HEENT: None NECK: None RESPIRATORY: None CARDIOVASCULAR: None GASTROINTESTINAL: [As above GENITOURINARY: None MUSCULOSKELETAL: Joint pains e LYMPHATICS: None HEMATOLOGICAL: None PSYCHIATRY: None NEUROLOGICAL: None Social history: Lives with her . Does use a cane. Sometimes a walker. Smokes at the age of [age] 1 pack a day. Stopped 2008. Alcohol none Physical examination: VITAL SIGNS: 97.6, 53, 18, 163 x 73, 92% room air GENERAL: BMI 32.7, sitting in bed awake comfortable. EYES: Pupils equal. Conjunctiva guilherme l. HEENT: External appearance of nose and ears normal, oral cavity grossly normal. NECK: JVD not raised; masses not palpable. HEART: First and second heart sounds are normal; no edema. LUNGS: Respiratory rate normal; decreased breath sounds. ABDOMEN: Soft, distended, nontender, liver spleen not palpable, no masses palpable. PSYCH: Alert and oriented x3; mood and affect guilherme l. MUSCULOSKELETAL:No Clubbing/cyanosis;muscles-grossly intact NEUROLOGICAL: Cranial nerves grossly intact; no facial asymmetry, power and sensation grossly intact. LYMPHATICS: No lymph nodes palpable in the axilla and neck INVESTIGATIONS, reviewed in the clinical context: August 28, 2024: White: 0.3 hemoglobin 12.7 platelets 318 sodium 141 potassium 3.8 BUN 29 creatinine 1.57 Troponin less than 0.012 proBNP 71 EKG tracing personally reviewed by me-normal sinus rhythm. ST-T wave changes anterior leads. Venous Doppler lower extremity left: No DVT Abdominal x-ray film personally reviewed by me: Fecal and gas throughout the colon and rectum. Stent graft to bilateral common iliac arteries. Assessment plan: -Abdominal distention. From significant constipation. Patient normally has 1-2 bowel movements a week. Has not had a good bowel movement for some time. Some liquid stools. X-ray showing stool scattered. No infective symptoms or signs. Mag citrate 1 bottle. If no good results we will then give a subset enema. -Coronary artery prior history of stent Aspirin. Tenormin. Lipitor. -COPD in prior smoker DuoNeb. Symbicort. -Chronic fibromyalgia [place] 10 4 times daily as needed -GERD Protonix -Hyperlipidemia Lipitor -Essential hypertension Amlodipine. Tenormin. Hydralazine. -Primary osteoarthritis multiple joints [place] 10 as needed -Obstructive sleep apnea does use nasal cannula 3 L at night -Colonic diverticulosis -Nephrolithiasis, asymptomatic -Anxiety, panic disorder Klonopin. Zoloft. -PAD with prior history of iliac artery intervention by Dr. Kim Aspirin. Lipitor. -Full code Patient seen by cardiology earlier. Switch to oral Lasix. Care was discussed with patient in detail. Past Medical History Past Medical History: Coronary Artery Disease (CAD), COPD, Deep Vein Thrombosis (DVT), Fibromyalgia, GERD/Reflux, Hyperlipidemia, Hypertension, Osteoarthritis (OA), Skin Disorder, Sleep Apnea/CPAP/BIPAP Additional Past Medical History / Comment(s): DIVERTICULITIS, HX KIDNEY STONE- still has it but it's never moved , Pneumonia, ROSACEA, DVT RLE 2007,gerson cataracts, BILAT ILIAC ARTERIES BLOCKED PER PT, pulmonary fibrosis History of Any Multi-Drug Resistant Organisms: None Reported Past Surgical History: Appendectomy, Bowel Resection, Heart Catheterization With Stent, Hernia Repair, Tubal Ligation Additional Past Surgical History / Comment(s): COLONOSCOPY, PARTIAL LT LOBECTOMY-(pt stated they thought i might of had tb but it was just scar tissue), D & C, 07-17-14 BOWEL RESECTION, HEART CATH W 2 STENTS AT [facility] [place] 11-15-15 , 12-18-17 lap robotic assisted repair of inc hernia Past Anesthesia/Blood Transfusion Reactions: No Reported Reaction Date of Last Stent Placement:: 11-15-15 AT [facility] [place] Past Psychological History: Anxiety, Panic Disorder Additional Psychological History / Comment(s): PT IS INDEPENDANT-drives,LIVES WITH SPOUSE Smoking Status: Former smoker Past Alcohol Use History: None Reported Additional Past Alcohol Use History / Comment(s): smoked since age 13 1ppd; QUIT 2008 Past Drug Use History: None Reported - Past Family History Mother Family Medical History: Congestive Heart Failure (CHF) Father Family Medical History: Cancer Additional Family Medical History / Comment(s): TYPE OF CANCER NOT KNOWN Medications and Allergies Home Medications Medication Instructions Recorded Confirmed Type clonazePAM [Clonazepam] 1 mg PO BID 02/20/14 08/28/24 History Aspirin EC [Ecotrin Low Dose] 81 mg PO HS 01/27/20 08/28/24 History Sertraline [Zoloft] 50 mg PO DAILY 06/28/22 08/28/24 History Pantoprazole [Protonix] 40 mg PO AC-BID 90 Days #180 tab 10/05/22 08/28/24 Rx hydrALAZINE HCL [Apresoline] 100 mg PO HS 10/18/22 08/28/24 History Ipratropium-Albuterol Nebulize 3 ml INHALATION RT-BID 05/03/23 08/28/24 History [Duoneb 0.5 mg-3 mg/3 ml Soln] Potassium Chloride ER [K-Dur 20] 20 meq PO HS 05/03/23 08/28/24 History atenoloL [Tenormin] 50 mg PO HS 05/03/23 08/28/24 History Nitroglycerin Sl Tabs [Nitrostat] 0.4 mg SL Q5M PRN 06/09/23 08/28/24 History Atorvastatin [Lipitor] 80 mg PO HS 05/10/24 08/28/24 History Immune Triple Support 1 tab PO HS 05/10/24 08/28/24 History Linaclotide [Linzess] 290 mcg PO HS PRN 05/10/24 08/28/24 History Magnesium Oxide [Mag-Ox] 400 mg PO HS 05/10/24 08/28/24 History amLODIPine [Norvasc] 10 mg PO HS 05/10/24 08/28/24 History methocarbamoL [Robaxin-750] 750 mg PO BID PRN 05/10/24 08/28/24 History Budesonide-Formot 160-4.5 Mcg 2 puff INHALATION RT-BID each 05/17/24 08/28/24 Rx [Symbicort 160-4.5 Mcg Inhaler] Furosemide [Lasix] 20 mg PO DAILY 90 Days #90 tab 05/17/24 08/28/24 Rx Lactulose [Cephulac] 30 gm PO BID 30 Days #60 ml 07/13/24 08/28/24 Rx Hydrocodone/Acetaminophen 1 tab PO QID PRN 08/28/24 08/28/24 History [Hydrocodone/Acetaminophen 10-300 mg] Allergies Allergy/AdvReac Type Severity Reaction Status Date / Time hydrocodone bitartrate AdvReac Nausea & Verified 08/28/24 17:39 [From Vicodin] Vomiting - DENIES Reaction propoxyphene napsylate AdvReac Nausea & Verified 08/28/24 17:39 [From Darvocet-N 100] Vomiting - DENIES Reaction Physical Exam Vitals: Vital Signs Temp Pulse Pulse Pulse Resp BP BP 08/29/24 07:35 97.6 F 53 L 18 08/29/24 02:20 50 L 08/29/24 01:53 98.5 F 55 L 16 08/29/24 00:06 54 L 08/28/24 22:06 61 171/90 08/28/24 21:09 60 18 135/95 08/28/24 19:30 59 L 18 152/78 08/28/24 17:56 62 24 157/77 08/28/24 17:23 24 08/28/24 17:17 68 16 160/75 08/28/24 16:57 97.9 F 62 20 162/62 BP Pulse Ox 08/29/24 07:35 163/73 92 L 08/29/24 02:20 08/29/24 01:53 125/67 96 08/29/24 00:06 133/68 08/28/24 22:06 98 08/28/24 21:09 95 08/28/24 19:30 96 08/28/24 17:56 92 L 08/28/24 17:23 08/28/24 17:17 96 08/28/24 16:57 95 Intake and Output 08/28/24 08/29/24 08/29/24 22:59 06:59 14:59 Other: # Voids 2 3 Weight 68.039 kg 70.942 kg Results CBC & Chem 7: 08/28/24 17:21 08/29/24 02:55 Labs: Abnormal Lab Results - Last 24 Hours (Table) 08/28/24 08/28/24 08/29/24 Range/Units 17:21 17: 02:55 WBC 11.3 H (3.8-10.6) k/uL Neutrophils # 9.4 H (1.3-7.7) k/uL Lymphocytes # 0.9 L (1.0-4.8) k/uL BUN 29 H 29 H (7-17) mg/dL Creatinine 1.57 H 1.59 H (0.52-1.04) mg/dL Glucose 111 H 139 H (74-99) mg/dL Alkaline Phosphatase 130 H (38-126) U/L Thrombosis Risk Factor Assmnt - Choose All That Apply Any of the Below Risk Factors Present?: Yes Each Factor Represents 1 point: Abnormal pulmonary function (COPD), Obesity (BMI >25) Other Risk Factors: Yes Each Risk Factor Represents 2 Points: Age 61-74 years Each Risk Factor Represents 3 Points: History of DVT/PE Other congenital or acquired thrombophilia - If yes, enter type in comment: No Thrombosis Risk Factor Assessment Total Risk Factor Score: 7 Thrombosis Risk Factor Assessment Level: High Risk
[2024-08-29 15:08] VITALS: BMI 32.6
[2024-08-29] MEDS: HYDROmorphone 0.5 MG/0.5 ML SYRINGE IVP PRN (16:03)
[2024-08-29] MEDS: PSYLLIUM HUSK 100% 6 GM PACKET PO SCH (16:18)
[2024-08-30 06:19] LABS: Glucose,Whole Blood 122 mg/dL (70-110)
[2024-08-30] MEDS: FUROSEMIDE 40 MG TAB PO SCH (10:04)
--- NOTE | 2024-08-30 14:16 | CT ---
EXAMINATION TYPE: CT abdomen pelvis wo con DATE OF EXAM: 08/30/2024 1:37 PM COMPARISON: None. CLINICAL INDICATION: Female, 68 years old with history of DISTENTION, ABD PAIN/DISTENTION TECHNIQUE: Axial images were obtained from above the diaphragm to the pubic rami in the axial plane a t 5 mm thick sections. Reconstructed images are reviewed on the computer in the coronal plane. CONTRAST: mL of . Study performed without Oral Contrast DLP: 590.4 mGycm, Automated exposure control for dose reduction was used. FINDINGS: Limited CT sections are obtained the lung bases. The lung bases are clear. CT ABDOMEN: Liver: Normal Spleen: Normal Pancreas: Somewhat atrophic Adrenal glands: The adrenal glands are normal. Gallbladder: Normal Kidneys: Right kidney is atrophic. Vascular calcification is present bilaterally. No suspicious renal stones evident. No hydronephrosis. No masses are evident. No cysts are present. Aorta: Vascular calcification is within the aorta. Inferior vena cava: Normal. CT PELVIS: Some air-fluid levels are scattered through the transverse colon. There are fluid-filled small bowel loops. Small bowel loops appear nondilated. There is an anastomosis in the distal sigmoid colon. No o bstruction is identified. Appendix: Surgically absent Urinary bladder: Normal. Genitourinary structures: Uterus is unremarkable. Adnexa appear normal. Osseous structures: No suspicious lytic or sclerotic lesions. Degenerative changes are within the lum bar spine. There is some superior endplate compression deformities T12-L1 and compression deformities of L4 and L5. Some vertebroplasty has been performed. No spinal canal stenosis is identified. IMPRESSION: 1. Nonspecific bowel. Consider gastroenteritis. No obstruction is evident. [facility], , 08/30/2024 2:13 PM
--- NOTE | 2024-08-30 16:21 | P.PN ---
Progress Note - Text Progress Note Date: 08/30/24 Chief Complaint: Abdominal distention I am rounding for Gregorio Leon 68-year-old patient with medical conditions including CAD with stent several years ago out of [facility], COPD, DVT fibromyalgia GERD hypertension hyperlipidemia osteoarthritis follow-up sleep apnea uses oxygen at night kidney stones, PAD with stents in the leg from Dr. Kim arthritis several joints. Patient presented some abdominal distention. Feels bloated. Able to tolerate diet. No nausea vomiting. No fever no chills. No abdominal pain per se just some discomfort. Normally has 1-2 bowel movements a week. Patient was last admission in July of this year underwent extensive workup with Dr. Sinclair's team from general surgery. CT scan of the abdomen showed: Atrophy of the kidney worse on the right side. Diverticulosis. Abdominal ultrasound: Cortical thinning of the kidneys. Abdominal x-ray: Moderate stool specially the right side. Last admission symptoms were felt to be from constipation. Patient does feel that she not had a good bowel movement. Sometimes some just liquid stool. August 30: Patient received mag citrate yesterday. Had 2 large liquid bowel movements. Subsequent to that she received soapsuds enema. She had large amount of bowel movements. A CT scan was ordered by Dr. Guzman today. Nonspecific findings. Patient very keen to see Dr. Murphy's lab Dr. Murphy see the patient. Patient otherwise tolerating all her diet. Metamucil added twice daily for bulk forming. Social history: Lives with her . Does use a cane. Sometimes a walker. Smokes at the age of [age] 1 pack a day. Stopped 2008. Alcohol none Physical examination: VITAL SIGNS: 98.2, 60, 18, 135 x 76, 91% room air GENERAL: BMI 32.7, sitting in bed awake a bit anxious EYES: Pupils equal. Conjunctiva guilherme l. HEENT: External appearance of nose and ears normal, oral cavity grossly normal. NECK: JVD not raised; masses not palpable. HEART: First and second heart sounds are normal; no edema. LUNGS: Respiratory rate normal; decreased breath sounds. ABDOMEN: Soft, mild distention, nontender, liver spleen not palpable, no masses palpable. PSYCH: Alert and oriented x3; mood and affect guilherme l. INVESTIGATIONS, reviewed in the clinical context: CT abdomen pelvis: Nonspecific bowel. August 28, 2024: White: 0.3 hemoglobin 12.7 platelets 318 sodium 141 potassium 3.8 BUN 29 creatinine 1.57 Troponin less than 0.012 proBNP 71 EKG tracing personally reviewed by me-normal sinus rhythm. ST-T wave changes anterior leads. Venous Doppler lower extremity left: No DVT Abdominal x-ray film personally reviewed by me: Fecal and gas throughout the colon and rectum. Stent graft to bilateral common iliac arteries. Assessment plan: -Abdominal distention. From significant constipation. Patient normally has 1-2 bowel movements a week. Has not had a good bowel movement for some time. Some liquid stools. X-ray showing stool scattered. No infective symptoms or signs. Mag citrate 1 bottle.-Had large BMs x 2 liquidy. Soapsuds enema: Large soft stools. Patient seen by Dr. Guzman from surgery. CT scan nonspecific. Patient request to see Dr. Murphy. Metamucil twice daily added for bulk forming. -Coronary artery prior history of stent Aspirin. Tenormin. Lipitor. -COPD in prior smoker DuoNeb. Symbicort. -Chronic fibromyalgia [place] 10 4 times daily as needed -GERD Protonix -Hyperlipidemia Lipitor -Essential hypertension Amlodipine. Tenormin. Hydralazine. -Primary osteoarthritis multiple joints [place] 10 as needed -Obstructive sleep apnea does use nasal cannula 3 L at night -Colonic diverticulosis -Nephrolithiasis, asymptomatic -Anxiety, panic disorder Klonopin. Zoloft. -PAD with prior history of iliac artery intervention by Dr. Kim Aspirin. Lipitor. -Full code Past Medical History Past Medical History: Coronary Artery Disease (CAD), COPD, Deep Vein Thrombosis (DVT), Fibromyalgia, GERD/Reflux, Hyperlipidemia, Hypertension, Osteoarthritis (OA), Skin Disorder, Sleep Apnea/CPAP/BIPAP Additional Past Medical History / Comment(s): DIVERTICULITIS, HX KIDNEY STONE- still has it but it's never moved , Pneumonia, ROSACEA, DVT RLE 2007,gerson c ataracts, BILAT ILIAC ARTERIES BLOCKED PER PT, pulmonary fibrosis History of Any Multi-Drug Resistant Organisms: None Reported Past Surgical History: Appendectomy, Bowel Resection, Heart Catheterization With Stent, Hernia Repair, Tubal Ligation Additional Past Surgical History / Comment(s): COLONOSCOPY, PARTIAL LT LOBECTOMY -(pt stated they thought i might of had tb but it was just scar tissue), D & C, 07-17-14 BOWEL RESECTION, HEART CATH W 2 STENTS AT [facility] [place] 11-15-15 , 12-18-17 lap robotic assisted repair of inc hernia Past Anesthesia/Blood Transfusion Reactions: No Reported Reaction Date of Last Stent Placement:: 11-15-15 AT [facility] [place] Past Psychological History: Anxiety, Panic Disorder Additional Psychological History / Comment(s): PT IS INDEPENDANT-drives,LIVES WITH SPOUSE Smoking Status: Former smoker Past Alcohol Use History: None Reported Additional Past Alcohol Use History / Comment(s): smoked since age 13 1ppd; QUIT 2008 Past Drug Use History: None Reported
--- NOTE | 2024-08-30 22:06 | P.GSCN ---
History of Present Illness Consult date: 08/30/24 History of present illness: Pleasant 68-year-old patient with medical conditions including CAD with stent several years ago out of [facility] [place], COPD, DVT fibromyalgia GERD hypertension hyperlipidemia osteoarthritis. General surgery was consulted secondary to abdominal pain. Patient currently admits to abdominal pain with recent constipation that has improved w/ bowel regimen. Denies nausea, vomiting, fevers or chills. She was hospitalized from something similar several months ago with a negative ctap. Past Medical History Past Medical History: Coronary Artery Disease (CAD), COPD, Deep Vein Thrombosis (DVT), Fibromyalgia, GERD/Reflux, Hyperlipidemia, Hypertension, Osteoarthritis (OA), Skin Disorder, Sleep Apnea/CPAP/BIPAP Additional Past Medical History / Comment(s): DIVERTICULITIS, HX KIDNEY STONE- s till has it but it's never moved , Pneumonia, ROSACEA, DVT RLE 2007,gerson cataracts, BILAT ILIAC ARTERIES BLOCKED PER PT, pulmonary fibrosis History of Any Multi-Drug Resistant Organisms: None Reported Past Surgical History: Appendectomy, Bowel Resection, Heart Catheterization With Stent, Hernia Repair, Tubal Ligation Additional Past Surgical History / Comment(s): COLONOSCOPY, PARTIAL LT LOBECTOMY-(pt stated they thought i might of had tb but it was just scar tissue), D & C, 07-17-14 BOWEL RESECTION, HEART CATH W 2 STENTS AT [facility] [place] 11-15-15 , 12-18-17 lap robotic assisted repair of inc hernia Past Anesthesia/Blood Transfusion Reactions: No Reported Reaction Date of Last Stent Placement:: 11-15-15 AT [facility] [place] Past Psychological History: Anxiety, Panic Disorder Additional Psychological History / Comment(s): PT IS INDEPENDANT-drives,LIVES WITH SPOUSE Smoking Status: Former smoker Past Alcohol Use History: None Reported Additional Past Alcohol Use History / Comment(s): smoked since age 13 1ppd; QUIT 2008 Past Drug Use History: None Reported - Past Family History Mother Family Medical History: Congestive Heart Failure (CHF) Father Family Medical History: Cancer Additional Family Medical History / Comment(s): TYPE OF CANCER NOT KNOWN Medications and Allergies Home Medications Medication Instructions Recorded Confirmed Type clonazePAM [Clonazepam] 1 mg PO BID 02/20/14 08/28/24 History Aspirin EC [Ecotrin Low Dose] 81 mg PO HS 01/27/20 08/28/24 History Sertraline [Zoloft] 50 mg PO DAILY 06/28/22 08/28/24 History Pantoprazole [Protonix] 40 mg PO AC-BID 90 Days #180 tab 10/05/22 08/28/24 Rx hydrALAZINE HCL [Apresoline] 100 mg PO HS 10/18/22 08/28/24 History Ipratropium-Albuterol Nebulize 3 ml INHALATION RT-BID 05/03/23 08/28/24 History [Duoneb 0.5 mg-3 mg/3 ml Soln] Potassium Chloride ER [K-Dur 20] 20 meq PO HS 05/03/23 08/28/24 History atenoloL [Tenormin] 50 mg PO HS 05/03/23 08/28/24 History Nitroglycerin Sl Tabs [Nitrostat] 0.4 mg SL Q5M PRN 06/09/23 08/28/24 History Atorvastatin [Lipitor] 80 mg PO HS 05/10/24 08/28/24 History Immune Triple Support 1 tab PO HS 05/10/24 08/28/24 History Linaclotide [Linzess] 290 mcg PO HS PRN 05/10/24 08/28/24 History Magnesium Oxide [Mag-Ox] 400 mg PO HS 05/10/24 08/28/24 History amLODIPine [Norvasc] 10 mg PO HS 05/10/24 08/28/24 History methocarbamoL [Robaxin-750] 750 mg PO BID PRN 05/10/24 08/28/24 History Budesonide-Formot 160-4.5 Mcg 2 puff INHALATION RT-BID each 05/17/24 08/28/24 Rx [Symbicort 160-4.5 Mcg Inhaler] Lactulose [Cephulac] 30 gm PO BID 30 Days #60 ml 07/13/24 08/28/24 Rx Hydrocodone/Acetaminophen 1 tab PO QID PRN 08/28/24 08/28/24 History [Hydrocodone/Acetaminophen 10-300 mg] Furosemide [Lasix] 20 mg PO DAILY 90 Days #90 tab 08/30/24 08/28/24 Rx Psyllium Husk 100% [Metamucil 6 gm PO BID #60 packet 08/30/24 Rx Packet] Allergies Allergy/AdvReac Type Severity Reaction Status Date / Time hydrocodone bitartrate AdvReac Nausea & Verified 08/28/24 17:39 [From Vicodin] Vomiting - DENIES Reaction propoxyphene napsylate AdvReac Nausea & Verified 08/28/24 17:39 [From Darvocet-N 100] Vomiting - DENIES Reaction Surgical - Exam Osteopathic Statement: *. No significant issues noted on an osteopathic structural exam other than those noted in the History and Physical/Consult. Vital Signs Temp Pulse Resp BP Pulse Ox 97.9 F 62 20 162/62 95 08/28/24 16:57 08/28/24 16:57 08/28/24 16:57 08/28/24 16:57 08/28/24 16:57 gen: nad cv: rrr pul: non labored breathing abd: soft, distended, min tender to palpation, no guarding or rebound Results - Labs 08/28/24 17:21 08/29/24 02:55 Abnormal Lab Results - Last 24 Hours (Table) 08/30/24 Range/Units 06:17 POC Glucose (mg/dL) 122 H (70-110) mg/dL Assessment and Plan Assessment: 68 yo female w/ abdominal pain likely secondary constipation -continue extensive bowel regimen -ctap -patient requesting Dr. Murphy
[2024-08-31] MEDS: CALCIUM CARBONATE 500 MG CHEWABLE PO PRN (03:27)
[2024-08-31 08:25] VITALS: BP 149/63; RESP 17; TEMP 98.1
[2024-08-31 08:50] VITALS: PULSE 62
--- NOTE | 2024-08-31 09:54 | P.GSCN ---
History of Present Illness Consult date: 08/31/24 Reason for Consult: Abdominal pain History of present illness: 68-year-old female admitted with complaints of abdominal pain and bloating. Ashley rm has mostly upper abdominal discomfort today although initially most of the pain was lower abdomen. She was given stool softeners with good volume of stools after that. Patient tolerating regular diet last night although said she felt full afterwards. Her CAT scan from this admission and also her last admission were reviewed. No obvious abnormalities to explain the patient's discomforts currently. Patient's pain is present regardless of her eating habits. She does have significant peripheral vascular disease but her symptoms do not seem consistent with chronic mesenteric ischemia. Patient does have some satiety issues and some constipation. According to the computer records her l ast upper and lower endoscopy were 10 years ago. Patient had a sigmoid resection for diverticulitis in 2014. Denies rectal bleeding. No vomiting. Normal white blood cell count. Review of Systems The patient denies any acute changes in vision or hearing, no dysphagia or odynophagia, no chest pain or shortness of breath, no dysuria or hematuria, no headache, no runny nose, no rectal bleeding or melena, no unexplained weight loss Past Medical History Past Medical History: Coronary Artery Disease (CAD), COPD, Deep Vein Thrombosis (DVT), Fibromyalgia, GERD/Reflux, Hyperlipidemia, Hypertension, Osteoarthritis (OA), Skin Disorder, Sleep Apnea/CPAP/BIPAP Additional Past Medical History / Comment(s): DIVERTICULITIS, HX KIDNEY STONE- still has it but it's never moved , Pneumonia, ROSACEA, DVT RLE 2007,gerson cataracts, BILAT ILIAC ARTERIES BLOCKED PER PT, pulmonary fibrosis History of Any Multi-Drug Resistant Organisms: None Reported Past Surgical History: Appendectomy, Bowel Resection, Heart Catheterization With Stent, Hernia Repair, Tubal Ligation Additional Past Surgical History / Comment(s): COLONOSCOPY, PARTIAL LT LOBE CTOMY-(pt stated they thought i might of had tb but it was just scar tissue), D & C, 07-17-14 BOWEL RESECTION, HEART CATH W 2 STENTS AT [facility] [place] 11-15-15 , 12-18-17 lap robotic assisted repair of inc hernia Past Anesthesia/Blood Transfusion Reactions: No Reported Reaction Date of Last Stent Placement:: 11-15-15 AT [facility] [place] Past Psychological History: Anxiety, Panic Disorder Additional Psychological History / Comment(s): PT IS INDEPENDANT-drives,LIVES WITH SPOUSE Smoking Status: Former smoker Past Alcohol Use History: None Reported Additional Past Alcohol Use History / Comment(s): smoked since age 13 1ppd; QUIT 2008 Past Drug Use History: None Reported - Past Family History Mother Family Medical History: Congestive Heart Failure (CHF) Father Family Medical History: Cancer Additional Family Medical History / Comment(s): TYPE OF CANCER NOT KNOWN Medications and Allergies Home Medications Medication Instructions Recorded Confirmed Type clonazePAM [Clonazepam] 1 mg PO BID 02/20/14 08/28/24 History Aspirin EC [Ecotrin Low Dose] 81 mg PO HS 01/27/20 08/28/24 History Sertraline [Zoloft] 50 mg PO DAILY 06/28/22 08/28/24 History Pantoprazole [Protonix] 40 mg PO AC-BID 90 Days #180 tab 10/05/22 08/28/24 Rx hydrALAZINE HCL [Apresoline] 100 mg PO HS 10/18/22 08/28/24 History Ipratropium-Albuterol Nebulize 3 ml INHALATION RT-BID 05/03/23 08/28/24 History [Duoneb 0.5 mg-3 mg/3 ml Soln] Potassium Chloride ER [K-Dur 20] 20 meq PO HS 05/03/23 08/28/24 History atenoloL [Tenormin] 50 mg PO HS 05/03/23 08/28/24 History Nitroglycerin Sl Tabs [Nitrostat] 0.4 mg SL Q5M PRN 06/09/23 08/28/24 History Atorvastatin [Lipitor] 80 mg PO HS 05/10/24 08/28/24 History Immune Triple Support 1 tab PO HS 05/10/24 08/28/24 History Linaclotide [Linzess] 290 mcg PO HS PRN 05/10/24 08/28/24 History Magnesium Oxide [Mag-Ox] 400 mg PO HS 05/10/24 08/28/24 History amLODIPine [Norvasc] 10 mg PO HS 05/10/24 08/28/24 History methocarbamoL [Robaxin-750] 750 mg PO BID PRN 05/10/24 08/28/24 History Budesonide-Formot 160-4.5 Mcg 2 puff INHALATION RT-BID each 05/17/24 08/28/24 Rx [Symbicort 160-4.5 Mcg Inhaler] Lactulose [Cephulac] 30 gm PO BID 30 Days #60 ml 07/13/24 08/28/24 Rx Hydrocodone/Acetaminophen 1 tab PO QID PRN 08/28/24 08/28/24 History [Hydrocodone/Acetaminophen 10-300 mg] Furosemide [Lasix] 20 mg PO DAILY 90 Days #90 tab 08/30/24 08/28/24 Rx Psyllium [place] 100% [Metamucil 6 gm PO BID #60 packet 08/30/24 Rx Packet] Allergies Allergy/AdvReac Type Severity Reaction Status Date / Time hydrocodone bitartrate AdvReac Nausea & Verified 08/28/24 17:39 [From Vicodin] Vomiting - DENIES Reaction propoxyphene napsylate AdvReac Nausea & Verified 08/28/24 17:39 [From Darvocet-N 100] Vomiting - DENIES Reaction Surgical - Exam Vital Signs Temp Pulse Resp BP Pulse Ox 97.9 F 62 20 162/62 95 08/28/24 16:57 08/28/24 16:57 08/28/24 16:57 08/28/24 16:57 08/28/24 16:57 Physical exam: General: Well-developed, well-nourished HEENT: Normocephalic, sclerae nonicteric Abdomen: Mild epigastric tenderness nondistended Extremities: No edema Neuro: Alert and oriented Results - Labs 08/28/24 17:21 08/29/24 02:55 Assessment and Plan (1) Abdominal pain Narrative/Plan: 68-year-old female with abdominal pain. Patient has been seen by at least 3 different surgeons recently for this. I was asked to see her as a additional opinion. We discussed her CAT scan findings. Discussed upper and lower endoscopy or gastric emptying study as options moving forward to evaluate her discomforts. Patient doing well enough that this could be performed as an ou tpatient. Case discussed with Dr. Sparks who plans discharge today with outpatient workup planned. Patient mentions that she wants to go to [facility] for a second opinion which is certainly reasonable. If she is discharged she can contact my office to arrange for upper and lower endoscopy. Continue stool softeners post discharge. Current Visit: No Status: Acute Code(s): R10.9 - UNSPECIFIED ABDOMINAL PAIN SNOMED Code(s): 38071949
--- NOTE | 2024-08-31 14:54 | P.DS ---
Providers Date of admission: 08/28/24 19:39 Expected date of discharge: 08/31/24 Attending physician: Govind Sparks Consults: 08/28/24 19:38 Consult Physician Routine Consulting Provider: Aayush Kim Consult Reason/Comments: CHF Do you want consulting provider notified?: Yes 08/29/24 14:34 Consult Physician Routine Consulting Provider: Tonio Guzman Consult Reason/Comments: abdominal distention and discomfort. Do you want consulting provider notified?: Yes 08/30/24 11:28 Consult Physician Routine Consulting Provider: Andrae Murphy Consult Reason/Comments: abdominal pain, distention. Requested Dr. Murphy Do you want consulting provider notified?: Yes Primary care physician: [facility] Course: Chief Complaint: Abdominal distention I am rounding for [facility] 68-year-old patient with medical conditions including CAD with stent several years ago out of [facility], COPD, DVT fibromyalgia GERD hypertension h yperlipidemia osteoarthritis follow-up sleep apnea uses oxygen at night kidney stones, PAD with stents in the leg from Dr. Kim arthritis several joints. Patient presented some abdominal distention. Feels bloated. Able to tolerate diet. No nausea vomiting. No fever no chills. No abdominal pain per se just some discomfort. Normally has 1-2 bowel movements a week. Patient was last admission in July of this year underwent extensive workup with Dr. Sinclair's team from general surgery. CT scan of the abdomen showed: Atrophy of the kidney worse on the right side. Diverticulosis. Abdominal ultrasound: Cortical thinning of the kidneys. Abdominal x-ray: Moderate stool specially the right side. Last admission symptoms were felt to be from constipation. Patient does feel that she not had a good bowel movement. Sometimes some just liquid stool. August 30: Patient received mag citrate yesterday. Had 2 large liquid bowel movements. Subsequent to that she received soapsuds enema. She had large amount of bowel movements. A CT scan was ordered by Dr. Guzman today. Nonspecific findings. Patient very keen to see Dr. Murphy's lab Dr. Murphy see the patient. Patient otherwise tolerating all her diet. Metamucil added twice daily for bulk forming. August 31: Patient seen by Dr. Murphy today. Plan is to discharge the patient. Patient may want to go to [facility] for a second opinion. At this point I feel patient is just dealing with may be of lazy bowels. She has been eating well. Outpatient EGD colonoscopy may be considered. Social history: Lives with her . Does use a cane. Sometimes a walker. Smokes at the age of [age] 1 pack a day. Stopped 2008. Alcohol none Physical examination: VITAL SIGNS: 98.1, 66, 17, 149% history, 93% 3 L GENERAL: BMI 32.7, sitting in bed comfortable EYES: Pupils equal. Conjunctiva guilherme l. HEENT: External appearance of nose and ears normal, oral cavity grossly normal. NECK: JVD not raised; masses not palpable. HEART: First and second heart sounds are normal; no edema. LUNGS: Respiratory rate normal; decreased breath sounds. ABDOMEN: Soft, mild distention, nontender, liver spleen not palpable, no masses palpable. PSYCH: Alert and oriented x3; mood and affect guilherme l. INVESTIGATIONS, reviewed in the clinical context: CT abdomen pelvis: Nonspecific bowel. August 28, 2024: White: 0.3 hemoglobin 12.7 platelets 318 sodium 141 potassium 3.8 BUN 29 creatinine 1.57 Troponin less than 0.012 proBNP 71 EKG tracing personally reviewed by me-normal sinus rhythm. ST-T wave changes anterior leads. Venous Doppler lower extremity left: No DVT Abdominal x-ray film personally reviewed by me: Fecal and gas throughout the colon and rectum. Stent graft to bilateral common iliac arteries. Assessment plan: -Abdominal distention. From significant constipation.: Possible IBS Patient normally has 1-2 bowel movements a week. Has not had a good bowel movement for some time. Some liquid stools. X-ray showing stool scattered. No infective symptoms or signs. Mag citrate 1 bottle.-Had large BMs x 2 liquidy. Soapsuds enema: Large soft stools. Patient seen by Dr. Guzman from surgery. CT scan nonspecific. Also seen by Dr. Murphy. May consider outpatient EGD colonoscopy. Metamucil twice daily added for bulk forming. Follow-up with Dr. Murphy outpatient. Also possible follow-up with Dr. Eduardo Christianson outpatient. -Coronary artery prior history of stent Aspirin. Tenormin. Lipitor. -COPD in prior smoker DuoNeb. Symbicort. -Chronic fibromyalgia Warren 10 4 times daily as needed -GERD Protonix -Hyperlipidemia Lipitor -Essential hypertension Amlodipine. Tenormin. Hydralazine. -Primary osteoarthritis multiple joints Warren 10 as needed -Obstructive sleep apnea does use nasal cannula 3 L at night -Colonic diverticulosis -Nephrolithiasis, asymptomatic -Anxiety, panic disorder Klonopin. Zoloft. -PAD with prior history of iliac artery intervention by Dr. Kim Aspirin. Lipitor. -Full code Disposition: Home Past Medical History Past Medical History: Coronary Artery Disease (CAD), COPD, Deep Vein Thrombosis (DVT), Fibromyalgia, GERD/Reflux, Hyperlipidemia, Hypertension, Osteoarthritis (OA), Skin Disorder, Sleep Apnea/CPAP/BIPAP Additional Past Medical History / Comment(s): DIVERTICULITIS, HX KIDNEY STONE- still has it but it's never moved , Pneumonia, ROSACEA, DVT RLE 2007,gerson cataracts, BILAT ILIAC ARTERIES BLOCKED PER PT, pulmonary fibrosis History of Any Multi-Drug Resistant Organisms: None Reported Past Surgical History: Appendectomy, Bowel Resection, Heart Catheterization With Stent, Hernia Repair, Tubal Ligation Additional Past Surgical History / Comment(s): COLONOSCOPY, PARTIAL LT LOBECTOMY-(pt stated they thought i might of had tb but it was just scar tissue), D & C, 07-17-14 BOWEL RESECTION, HEART CATH [place] 2 [place] [facility] [place] , 12-18-17 lap robotic assisted repair of inc hernia Past Anesthesia/Blood Transfusion Reactions: No Reported Reaction Date of Last Stent Placement:: 11-15-15 [place] [facility] [place] Past Psychological History: Anxiety, Panic Disorder Additional Psychological History / Comment(s): PT IS 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-drives,LIVES WITH SPOUSE Smoking Status: Former smoker Past Alcohol Use History: None Reported Additional Past Alcohol Use History / Comment(s): smoked since age 13 1ppd; QUIT 2008 Past Drug Use History: None Reported Plan - Discharge Summary Discharge Rx Participant: No New Discharge Prescriptions: New Psyllium Husk 100% [Metamucil Packet] 6 gm PO BID #60 packet Continue clonazePAM [Clonazepam] 1 mg PO BID Aspirin EC [Ecotrin Low Dose] 81 mg PO HS Sertraline [Zoloft] 50 mg PO DAILY Pantoprazole [Protonix] 40 mg PO AC-BID 90 Days #180 tab hydrALAZINE HCL [Apresoline] 100 mg PO HS Ipratropium-Albuterol Nebulize [Duoneb 0.5 mg-3 mg/3 ml Soln] 3 ml INHALATION RT-BID Nitroglycerin Sl Tabs [Nitrostat] 0.4 mg SL Q5M PRN PRN Reason: Chest Pain amLODIPine [Norvasc] 10 mg PO HS Atorvastatin [Lipitor] 80 mg PO HS Potassium Chloride ER [K-Dur 20] 20 meq PO HS atenoloL [Tenormin] 50 mg PO HS Immune Triple Support 1 tab PO HS Magnesium Oxide [Mag-Ox] 400 mg PO HS methocarbamoL [Robaxin-750] 750 mg PO BID PRN PRN Reason: Muscle Spasm Linaclotide [Linzess] 290 mcg PO HS PRN PRN Reason: Constipation Budesonide-Formot 160-4.5 Mcg [Symbicort 160-4.5 Mcg Inhaler] 2 puff INHALATION RT-BID each Lactulose [Cephulac] 30 gm PO BID 30 Days #60 ml Hydrocodone/Acetaminophen [Hydrocodone/Acetaminophen 10-300 mg] 1 tab PO QID PRN PRN Reason: Pain Furosemide [Lasix] 20 mg PO DAILY 90 Days #90 tab Discharge Medication List clonazePAM [Clonazepam] 1 mg PO BID 02/20/14 [History] Aspirin EC [Ecotrin Low Dose] 81 mg PO HS 01/27/20 [History] Sertraline [Zoloft] 50 mg PO DAILY 06/28/22 [History] Pantoprazole [Protonix] 40 mg PO AC-BID 90 Days #180 tab 10/05/22 [Rx] hydrALAZINE HCL [Apresoline] 100 mg PO HS 10/18/22 [History] Ipratropium-Albuterol Nebulize [Duoneb 0.5 mg-3 mg/3 ml Soln] 3 ml INHALATION RT-BID 05/03/23 [History] Potassium Chloride ER [K-Dur 20] 20 meq PO HS 05/03/23 [History] atenoloL [Tenormin] 50 mg PO HS 05/03/23 [History] Nitroglycerin Sl Tabs [Nitrostat] 0.4 mg SL Q5M PRN 06/09/23 [History] Atorvastatin [Lipitor] 80 mg PO HS 05/10/24 [History] Immune Triple Support 1 tab PO HS 05/10/24 [History] Linaclotide [Linzess] 290 mcg PO HS PRN 05/10/24 [History] Magnesium Oxide [Mag-Ox] 400 mg PO HS 05/10/24 [History] amLODIPine [Norvasc] 10 mg PO HS 05/10/24 [History] methocarbamoL [Robaxin-750] 750 mg PO BID PRN 05/10/24 [History] Budesonide-Formot 160-4.5 Mcg [Symbicort 160-4.5 Mcg Inhaler] 2 puff INHALATION RT-BID each 05/17/24 [Rx] Lactulose [Cephulac] 30 gm PO BID 30 Days #60 ml 07/13/24 [Rx] Hydrocodone/Acetaminophen [Hydrocodone/Acetaminophen 10-300 mg] 1 tab PO QID PRN 08/28/24 [History] Furosemide [Lasix] 20 mg PO DAILY 90 Days #90 tab 08/30/24 [Rx] Psyllium Husk 100% [Metamucil Packet] 6 gm PO BID #60 packet 08/30/24 [Rx] Follow up Appointment(s)/Referral(s): Andrae Murphy MD [Medical Doctor] - 1 Week Gregorio Garber MD [Primary Care Provider] - 1-2 days Ronda Christianson MD [STAFF PHYSICIAN] - 1 Week Discharge Disposition: HOME SELF-CARE
== END 2024-08-31 14:44 | disposition home or self-care (01) ==
LOC: EC 16:55 → 4SSUR 19:39
PROVIDERS: ADMIT Hospitalist; ATTEND Hospitalist
DX: K59.00 Constipation, unspecified (principal); I11.0 Hypertensive heart disease with heart failure; I50.9 Heart failure, unspecified; J44.9 Chronic obstructive pulmonary disease, unspecified; I25.10 Atherosclerotic heart disease of native coronary artery without angina pectoris; I08.3 Combined rheumatic disorders of mitral, aortic and tricuspid valves; K21.9 Gastro-esophageal reflux disease without esophagitis; E78.5 Hyperlipidemia, unspecified; M79.7 Fibromyalgia; R00.1 Bradycardia, unspecified; M19.90 Unspecified osteoarthritis, unspecified site; I73.9 Peripheral vascular disease, unspecified; N26.1 Atrophy of kidney (terminal); M19.91 Primary osteoarthritis, unspecified site; G47.33 Obstructive sleep apnea (adult) (pediatric); N20.0 Calculus of kidney; K57.30 Diverticulosis of large intestine without perforation or abscess without bleeding; F41.0 Panic disorder [episodic paroxysmal anxiety]; F41.9 Anxiety disorder, unspecified; E66.9 Obesity, unspecified; Z68.27 Body mass index [BMI] 27.0-27.9, adult; G89.29 Other chronic pain; M54.50 Low back pain, unspecified; Z79.82 Long term (current) use of aspirin; Z79.51 Long term (current) use of inhaled steroids; Z79.899 Other long term (current) drug therapy; Z88.5 Allergy status to narcotic agent; Z87.891 Personal history of nicotine dependence; Z95.5 Presence of coronary angioplasty implant and graft; Z95.820 Peripheral vascular angioplasty status with implants and grafts; Z86.718 Personal history of other venous thrombosis and embolism; Z86.711 Personal history of pulmonary embolism; Z90.49 Acquired absence of other specified parts of digestive tract
CPT/HCPCS: 96376 ×3; 96372 ×4; 96374; 96375; 99285; 36415; 94640 ×5; 94760 ×2; 93005; 83880; 80053; 80048; 83735; 84484; 85025; 85610; 85730; 71046; 74018; 76705; 93971; 74176; G0378 ×4; J1940 ×2; J1650 ×4; J1171 ×3

== ENCOUNTER → 2024-10-02 | Outpatient (CLI) | payer MEDICARE ==
[2024-10-02 13:16] LABS: African American GFR (CKD) 53 (>60 ml/min/1.73 sqM); Blood Urea Nitrogen 17 mg/dL (7-17); Non-African American GFR(CKD) 46 (>60 ml/min/1.73 sqM)
--- NOTE | 2024-10-02 14:15 | CT ---
EXAMINATION TYPE: CT abdomen pelvis w con DATE OF EXAM: 10/02/2024 COMPARISON: 08/30/2024 CLINICAL INDICATION: Female, 68 years old with history of R19.4 CHANGE IN BOWEL HABIT R10.9 UNSPECIFI ED ABDO; PHH, Abdominal distention. TECHNIQUE: Performed with Oral Contrast and with IV Contrast, patient injected with 80ml mL of Isovue 300. CT DLP: [address] CTDI: mGy Automated exposure control for dose reduction was used. FINDINGS: Mild chronic interstitial changes in the left lung base. The gallbladder is normal without distention, wall thickening, pericholecystic fluid or gallstones. T here is no biliary ductal dilatation. There is no focal mass or organomegaly involving the liver, pancreas, spleen or adrenal glands. There is no solid renal mass or hydronephrosis and there is homogeneous contrast enhancement of the r enal parenchyma. The right kidney is markedly atrophic. There are right renal arterial vascular calci fications. The caliber the abdominal aorta is normal is no retroperitoneal adenopathy or hemorrhage. The bowel loops are normal in caliber and there is no evidence of dilatation or obstruction. No infla mmatory changes are identified in the bowel wall or mesentery. There is no free intraperitoneal air or fluid. No pelvic mass, free fluid, abscess or adenopathy. There are stable vertebroplasty in the L4 and L5 vertebral segments. There is mildly progressive mode rate superior endplate compression fracture of L1 and mildly progressive mild compression fracture of T12. IMPRESSION: 1. Marked right renal atrophy with arteriovascular calcifications. 2. Progressive T12 and L1 compression fractures as described above. 3. No acute changes within the abdomen or pelvis. [facility], , 10/02/2024 2:13 PM
== END | disposition home or self-care (01) ==
LOC: RADCTMAIN 12:15
PROVIDERS: ATTEND Family Medicine
DX: N26.1 Atrophy of kidney (terminal) (principal); N28.89 Other specified disorders of kidney and ureter; I73.9 Peripheral vascular disease, unspecified; S32.010A Wedge compression fracture of first lumbar vertebra, initial encounter for closed fracture; R19.4 Change in bowel habit; S22.080A Wedge compression fracture of T11-T12 vertebra, initial encounter for closed fracture
CPT/HCPCS: 82565; 84520; 74177; 36415; Q9967